=== PATIENT | female | born 1960 | race Caucasian/White ===

== ENCOUNTER 2018-05-23 14:46 | Inpatient (IN) | payer MEDICARE, MEDICAID, SELFPAY ==
[2018-05-23] VITALS (26 sets, daily range): BP systolic 112–140; BP diastolic 55–93; PULSE 76–101; RESP 12–32; TEMP 36.9–39.2; O2SAT 74–94; BMI 50.4; BMI 49.7
--- NOTE | 2018-05-23 15:05 | EKG12_ITS ---
Test Reason : SOB Blood Pressure : / mmHG Vent. Rate : 087 BPM Atrial Rate : 087 BPM P-R Int : 148 ms QRS Dur : 084 ms QT Int : 380 ms P-R-T Axes : 050 -02 071 degrees QTc Int : 457 ms Normal sinus rhythm Nonspecific T wave abnormality Abnormal ECG Confirmed by SUSANA BRENNER, WHIT ([id number]), dictionary editor CAROLINE CAMILO ([id number]) on 05/29/2018 11:18:05 AM Referred By: Alejandro Bernard Confirmed By:WHIT MEZA MD
[2018-05-23] MEDS: Ipratropium/Albuterol Sulfate 3 ML AMPUL.NEB INHALATION ×3 (15:10→22:49)
--- NOTE | 2018-05-23 15:13 | ED.DCSUM_ITS ---
- ER Visit Summary Date of Service: 05/23/18 Chief Complaint: Weakness, fall History of Present Illness: The patient is a 57 F reports being sick for the past week. She states she has been taking [place] to help control fever. She does report dry cough and does feel as if she is wheezing and has fine craft artist ckling when she breathes. She does report some mild vomiting. EMS was called for weakness and frequent falls. Per nursing report EMS states they had been called to the house multiple times. Physical Examination: Blood pressure is 113/57, temperature 102.5, heart rate 94, respiratory rate 25, pulse ox 79% on room air. At time of my examination she is 88% on a 50% Ventimask. Patient is lying in bed. She appears ill but not toxic. She is speaking full sentences. Head neck examination is significant for dry mucous membranes. Heart is regular rate and rhythm. Lungs sounds with expiratory wheezes and rales throughout. Abdomen is soft with no focal tenderness. Hypoactive bowel sounds noted. Test Results: EKG is sinus 87 with lateral T wave flattening. Portable chest x- ray shows CHF superimposed on atelectasis and/or infiltrate in the right midlung. CBC was normal overall white count was 79% neutrophils. Chemistry studies significant for bicarb of 35 and a glucose of 313. LFTs are normal. Coags normal. Urinalysis shows no white cells with 50 ketones. Lactate is 2.0. Emergency Department Course and Treatment: Patient received Tylenol for fever along with aerosols. Upon completion of x-ray Rocephin and Zithromax are ordered. On repeat evaluation sat is 91-93% on a 50% Ventimask. Patient is going to pull the mask off and needs to be redirected. He still does have expiratory wheezes but does have improved air movement. She be given a dose of Solu-Medrol and an additional albuterol treatment at this time. Of note the patient's boyfriend with whom she lives is positive for influenza. Patient reports being ill for 1 week and I doubt Tamiflu will be beneficial at this point. Treatment Plan: [] Disposition: Admit Impression: 1. Sepsis 2. Pneumonia 3. CHF 4. Influenza 5. Respiratory failure This note was generated with CINEPASSation software. It may contain incorrect words, spelling, and punctuation that were not noted in review of the chart prior to signing ED Disposition - Plan for ED Patient: Referrals: Richard Elizabeth MD [Primary Care Provider] -
--- NOTE | 2018-05-23 15:15 | RAD_ITS ---
STUDY: X-RAY CHEST REASON FOR EXAM: Female, 57 years old. Weakness. Cough. TECHNIQUE: Single AP portable view of the chest. COMPARISON: Comparison is made with prior study January 05, 2015. FINDINGS: EKG electrodes are seen. There is evidence of bilateral airspace disease worse in the right lung. This is suggestive of a CHF with possible superimposed atelectasis and/or infiltrate in the right midlung. There is no demonstrated pleural abnormality. There is moderate cardiac enlargement. Normal mediastinum and lyric. Normal visualized pulmonary arteries. There is atherosclerotic tortuosity of the aortic arch and descending thoracic aorta. Normal visualized thoracic spine. Normal visualized ribs, clavicles, and shoulders. There is no demonstrated abnormality of the visualized soft tissue structures of the upper abdomen. RAD/Chest 1 View (Portable) IMPRESSION: Findings suggestive CHF with superimposed atelectasis and/or infiltrate in the right midlung. Electronically Signed: Royer Rowe MD at 15:56 EST , Service support ,
[2018-05-23] MEDS: Albuterol 2.5 MG/3 ML VIAL.NEB. INHALATION ×3 (15:22→16:17)
[2018-05-23] MEDS: Acetaminophen 500 MG Tablet 1000 MG PO (15:28)
[2018-05-23] MEDS: 0.9% Normal Saline 1,000 ML 150 ML IV ×2 (15:32→18:16)
[2018-05-23 15:42] LABS: Mucous, Urine 0 SEEN /hpf (<or=2+); Red Blood Cells-Urine 0 SEEN /hpf (0-5); White Blood Cells 0 SEEN /hpf (0-5)
[2018-05-23 15:46] LABS: ALB/GLOB Ratio 0.7 RATIO (0.9-2.4); AST(SGOT) 30 U/L (15-37); Alanine Aminotransfer ALT/SGPT 22 U/L (13-56); Albumin, Serum 2.5 g/dL (3.2-5.0); Alkaline Phosphatase 84 U/L (45-117); Anion Gap 7 (5-15); BUN 11 mg/dL (7-18); BUN/Creat Ratio 10.3 RATIO (10-20); Calcium,Total 7.2 mg/dL (8.5-10.1); Chloride 95 mmol/L (98-107); Creatinine, Serum 1.07 mg/dL (0.55-1.02); EST Glomerular Filtration Rate 56 mL/min (>60); Est Glom Filt Rate - Afr Amer 68 mL/min (>60); Estimated Creatinine Clearance 56.41 ml/min; Globulin 3.8 g/dL (2.2-4.2); Glucose 313 mg/dL (74-106); Potassium 3.5 mmol/L (3.5-5.1); Protein, Total 6.3 g/dL (6.4-8.2); Sodium Level 137 mmol/L (136-145)
[2018-05-23 15:51] LABS: Color, Urine Yellow (Yellow); Glucose, Dipstick 1000 mg/dl (Normal); Ketone-Dipstick 50 mg/dl (Negative); Leukocyte Esterase-Dipstick Negative /ul (Negative); Nitrite-Dipstick Negative (Negative); Occult Blood-Urine 50 /ul (Negative); Protein-Dipstick 100 mg/dl (Negative); Urine Bilirubin Dipstick Negative (Negative); Urine Clarity Cloudy (Clear); Urine Urobilinogen Normal (Normal)
[2018-05-23 16:02] LABS: Prothrombin Time (Protime)PT. 12.9 SECONDS (11.7-14.9)
[2018-05-23 16:03] LABS: Partial Thromboplast Time 34.9 Seconds (24.1-36.2)
[2018-05-23 16:05] LABS: Squamous Epithelial Cells - UA 0-5 SEEN /hpf (5-10)
[2018-05-23 16:06] LABS: Amorphous Sediment 2+; Bacteria 4+ /hpf (None Seen); Coarse Granular Cast 0-5 SEEN /lpf (0-5 /lpf); Fine Granular Cast- Urine 5-10 SEEN /lpf (0-5)
[2018-05-23 16:10] LABS: Absolute Lymphocyte Count 0.49 X10^3/ul (0.83-4.51); Basophil# 0.01 X10^3/uL; Basophil% 0.2 % (0-1); Differential Indicated SCAN CRITERIA MET; Hematocrit 41.5 % (37-47); Hemoglobin 13.2 g/dl (12.0-15.0); Lymphocyte # 0.49 X10^3/ul (4.0); Lymphocyte % 9.7 % (19-41); Mean Corp Hgb Conc 31.8 g/gl (32-36); Mean Corpuscular Hgb 26.2 pg (27.0-32.0); Mean Corpuscular Volume 82.5 fL (81-99); Monocyte# 0.54 X10^3/uL; Monocyte% 10.7 % (0-10); Neutrophil # 4.01 X10^3/uL (2.7-7.7); Neutrophil % 79.2 % (47-70); POSITIVE COUNT NO; POSITIVE DIFFERENTIAL YES; POSITIVE MORPHOLOGY NO; Platelet Count 165 K/mm3 (150-450); RBC Distribution Width CV 13.7 % (11.6-14.6); RBC Distribution Width SD 40.4 fl (35.1-43.9); Red Blood Count 5.03 M/mm3 (4.2-5.4); White Blood Count 5.1 K/mm3 (4.4-11.0)
[2018-05-23] MEDS: Ceftriaxone 1 GM/50 ML BAG IV (16:22)
--- NOTE | 2018-05-23 16:34 | NURSING ---
PCU ACUTE RESP FAILURE, COPD?, PNEUMONIA ANISHA
[2018-05-23 16:43] LABS: Differential Comment SCANNED
[2018-05-23 16:57] LABS: BNP,B-Type NATRIURETIC PEPTIDE 24.7 pg/mL (0-100)
--- NOTE | 2018-05-23 16:58 | NURSING ---
ALEXA MONTOYA UPDATED PT PUT ON BIPAP AND CORE TEMP QUYEN IN
--- NOTE | 2018-05-23 17:00 | PCM.HP.STD ---
<Martín Garcia - Last Filed: 05/23/18 17:00> Problem List (1) Chest pain Status: Acute (2) CHF (congestive heart failure) Status: Acute (3) Pulmonary HTN Status: Acute (4) Acute respiratory failure with hypoxia Status: Acute (5) PNA (pneumonia) Status: Acute (6) Anxiety Status: Chronic (7) Diabetes Status: Chronic (8) Histrionic personality disorder Status: Chronic (9) PTSD (post-traumatic stress disorder) Status: Chronic (10) Morbid obesity Status: Chronic History of Present Illness Date of Admission: 05/23/18 Chief Complaint: SOB The patient is a 57 year old F with pmhx pulmonary htn, morbid obesity, ptsd, histrionic personality, anxiety, T2 IDDM who presents to the ER with c/o SOB. She has felt ill for the past week with increasing nonproductive cough SOB, worse with exertion, fatigue, falling, fevers and chills at home. Boyfriend is currently sick with influenza A. She is hypoxic in the ER and currently requiring Bipap to maintain good sats, however ongoing conversational dyspnea at this time. She also currently complains of chest pain midsternal radiating to back and neck. CXR appears c/w CHF and pneumonia. She received rocephin and azithro via IV in the ER. Last Echo 2013 EF 55%, PASP 44 mmHg. Heart Cath 2014 normal coronaries. She denies smoking hx, denies hx COPD. [] Past Medical History Past Medical History (Chronic Problems): Chronic Problems Morbid obesity (Chronic) Histrionic personality disorder (Chronic) PTSD (post-traumatic stress disorder) (Chronic) Anxiety (Chronic) Diabetes (Chronic) Allergies No Known Allergies Allergy (Verified 05/23/18 14:58) Home Medications: Ambulatory Orders Medication Instructions Recorded Hydroxyzine Pamoate [Vistaril] 50 mg PO TID 01/13/14 Zolpidem Tartrate [Ambien] 10 mg PO QHS 01/13/14 Atorvastatin Calcium [Lipitor] 40 mg PO QHS 05/23/18 Fluticasone 0.05% [Flonase Nasal 2 sprays NASAL DAILY 05/23/18 Walker] Insulin Human 70/30 [Novolog Mix 35 unit SC BID 05/23/18 70-30 Flexpen Syrn] Linagliptin [Tradjenta] 5 mg PO DAILY 05/23/18 Lorazepam [Ativan] 1 mg PO DAILY 05/23/18 Meloxicam 7.5 mg PO DAILY 05/23/18 Paliperidone [Paliperidone ER] 6 mg PO BID 05/23/18 Ranitidine HCl 150 mg PO DAILY 05/23/18 Surgical History: cholecystectomy, - - wrist surger (R) Psychiatric History: Anxiety, Depression, Post traumatic stress, - - histrionic personality disorder [employer]CH[employer] STRIPPER History: No pertinent [employer] STRIPPER history Lives: Spouse/ Significant Other Smoking Status: Never smoker Tobacco Use: Non-smoker Alcohol: None Drugs: None - *Family History Paternal History Items: No pertinent history Maternal History Items: Cancer - lung cancer Review of Systems Constitutional: Reports: Chills, Fever, Malaise, Fatigue. Denies: Weight Change HEENT: Denies: Head Aches, Sinus Congestion, Sinus Drainage Cardiovascular: Reports: Chest Pain, Edema. Denies: Palpitations Respiratory: Reports: Cough, Shortness of Breath, Shortness of breath at rest, Shortness of breath upon exertion. Denies: Sputum production Gastrointestinal: Denies: Abdominal Pain, Nausea, Vomiting Genitourinary: Denies: Dysuria Musculoskeletal: Denies: Joint Pain, Joint Tenderness Skin: Denies: Rash, Wounds Neurological: Denies: Numbness, Tingling, Focal weakness Psychiatric: Denies: Anxiety, Depression, Homicidal Ideations, Suicidal Ideations Hematologic/ Lymphatic: Denies: Easy Bruising, Easy Bleeding VTE Information - Inpt Only VTE Present on Admission: No VTE Mechan Device Prophylaxis: None VTE Pharm Prophylaxis ordered?: Yes Patient Problems: Active and Suspected Problems Chest pain (Acute) CHF (congestive heart failure) (Acute) Pulmonary HTN (Acute) Acute respiratory failure with hypoxia (Acute) PNA (pneumonia) (Acute) - Physical Exam General: Alert, Oriented x3, Cooperative HEENT: Atraumatic, PERRLA, EOMI, Normocephalic Neck: Supple, No JVD, Negative Carotid Bruits Lungs: Diminished, Rhonchi Cardiovascular: Regular rate, No murmurs Abdomen: Bowel Sounds Present, Soft, Non Tender, Obese Extremities: Capillary Refill Less than 3 Seconds, Edema - BL LE non pitting Skin: No rashes, No breakdown Musculoskeletal: No Tenderness to Palpation of Joints or Extremities Neurological: Cranial nerves II-XII grossly intact Psych/Mental Status: Normal Affect, Appropriate Vital Signs Temp Pulse Resp BP Pulse Ox 101.4 F H 89 24 H 129/73 H 90 05/23/18 16:59 05/23/18 16:59 05/23/18 16:59 05/23/18 16:59 05/23/18 16:59 Oxygen Flow Rate (L/min) 12 Oxygen Delivery Method Bi-pap Weight: 321 lb 13.998 oz Body Mass Index (BMI) 50.4 Finger Stick Blood Glucose 283 Laboratory Tests Past 24 Hrs 05/23/18 05/23/18 05/23/18 15:10 15:10 15:10 WBC 5.1 RBC 5.03 Hgb 13.2 Hct 41.5 MCV 82.5 MCH 26.2 L MCHC 31.8 L RDW 13.7 RDW Differential 40.4 Plt Count 165 MPV 11.0 Immature Gran % (Auto) 0.200 Neut % (Auto) 79.2 H Lymph % (Auto) 9.7 L [place] % (Auto) 10.7 H Eos % (Auto) 0.0 Baso % (Auto) 0.2 Absolute Neuts (auto) 4.0 Absolute Lymphs (auto) 0.49 L Total Counted Not Reportable Differential Comment SCANNED PT 12.9 INR 1.0 APTT 34.9 Sodium 137 Potassium 3.5 Chloride 95 L Carbon Dioxide 35.0 H Anion Gap 7 BUN 11 Creatinine 1.07 H Estim Creat Clear Calc 56.41 Est GFR (MDRD) Af Amer 68 Est GFR (MDRD) Non-Af 56 L BUN/Creatinine Ratio 10.3 Glucose 313 H Lactic Acid Calcium 7.2 L Total Bilirubin 0.20 AST 30 ALT 22 Alkaline Phosphatase 84 B-Natriuretic Peptide Total Protein 6.3 L Albumin 2.5 L Globulin 3.8 Albumin/Globulin Ratio 0.7 L Urine Color Urine Clarity Urine pH Ur Specific [place] Urine Protein Urine Glucose (UA) Urine Ketones Urine Occult Blood Urine Nitrite Urine Bilirubin Urine Urobilinogen Ur Leukocyte Esterase Urine RBC Urine WBC Ur Squamous Epith Cells Amorphous Sediment Urine Bacteria Fine Granular Casts Coarse Granular Casts Urine Mucus 05/23/18 05/23/18 05/23/18 15:10 15:10 15:35 WBC RBC Hgb Hct MCV MCH MCHC RDW RDW Differential Plt Count MPV Immature Gran % (Auto) Neut % (Auto) Lymph % (Auto) [place] % (Auto) Eos % (Auto) Baso % (Auto) Absolute Neuts (auto) Absolute Lymphs (auto) Total Counted Differential Comment PT INR APTT Sodium Potassium Chloride Carbon Dioxide Anion Gap BUN Creatinine Estim Creat Clear Calc Est GFR (MDRD) Af Amer Est GFR (MDRD) Non-Af BUN/Creatinine Ratio Glucose Lactic Acid 2.0 Calcium Total Bilirubin AST ALT Alkaline Phosphatase B-Natriuretic Peptide 24.7 Total Protein Albumin Globulin Albumin/Globulin Ratio Urine Color Yellow Urine Clarity Cloudy Urine pH 5.0 Ur Specific [place] 1.020 Urine Protein 100 H Urine Glucose (UA) 1000 H Urine Ketones 50 H Urine Occult Blood 50 H Urine Nitrite Negative Urine Bilirubin Negative Urine Urobilinogen Normal Ur Leukocyte Esterase Negative Urine RBC 0 SEEN Urine WBC 0 SEEN Ur Squamous Epith Cells 0-5 SEEN Amorphous Sediment 2+ Urine Bacteria 4+ Fine Granular Casts 5-10 SEEN Coarse Granular Casts 0-5 SEEN Urine Mucus 0 SEEN Assessment/Plan All Active Problems Chest pain (Acute) CHF (congestive heart failure) (Acute) Pulmonary HTN (Acute) Acute respiratory failure with hypoxia (Acute) PNA (pneumonia) (Acute) S/P laparoscopic cholecystectomy (Acute) Gall bladder disease (Acute) 1. Acute hypoxic respiratory failure with hypercapnia, acute sepsis, 2/2 acute viral syndrome presumed influenza A, CAP and underlying CHF/pulmonary HTN - Maintain on bipap currentl 5/10 with 91% sat. Start tamiflu empirically. Continue rocephin and azithro - RML infiltrate on CXR. Also CXR showing CHF - IV lasix 40 IV BID. Hx pulm htn. Repeat Echo last 2013 ef 55% PASP 44. Continue supportive care with mucinex, aerosols, pep, IS. Check daily weights, monitor I/O. Resp panel pending. BNP pending. No white count however she has fever, tachypnea, pulse >90, LA 2.0 2. Chest pain - cath 2013 no CAD. Check trop. EKG T wave flattening. Maintain on tele. Repeat AM EKG, cycle enzymes. 3. T2DM with morbid obesity - poorly controlled. Add lantus and SSI. Dietary consult. Carb controlled/ Glenn controlled diet. 4. Suspect ERICK/OHS - needs o/p sleep study 5. Anx/Dep/PTSD/Histrionic - continue home meds. DVT ppx: Lovenox DC planning: PTOT. Falling at home recently. This patient was seen by Martín Garcia PA-C under the supervision of Doctor Marco Antonio. <Alejandro Bernard - Last Filed: 05/23/18 17:54> Problem List (1) Chest pain Status: Acute (2) CHF (congestive heart failure) Status: Acute (3) Pulmonary HTN Status: Acute (4) Acute respiratory failure with hypoxia Status: Acute (5) PNA (pneumonia) Status: Acute (6) Morbid obesity Status: Chronic (7) S/P laparoscopic cholecystectomy Status: Acute (8) Gall bladder disease Status: Acute (9) Histrionic personality disorder Status: Chronic (10) PTSD (post-traumatic stress disorder) Status: Chronic (11) Anxiety Status: Chronic (12) Diabetes Status: Chronic History of Present Illness Seen and examined. 57-year-old female with no history of smoking, COPD or chronic heart problems came to ER with shortness of breath, cough, tachypnea consistent with acute hypoxic respiratory failure. In ED, she was found febrile 101.7 Fahrenheit. Pulse ox was 79% on room air and was put on 50% Ventimask. Initially although she was refusing for BiPAP but later on she agreed. [] Past Medical History Allergies No Known Allergies Allergy (Verified 05/23/18 14:58) - Physical Exam General: Alert, Oriented x3, Cooperative HEENT: Atraumatic, PERRLA, EOMI, Normocephalic Neck: Supple, No JVD, Negative Carotid Bruits Lungs: Diminished - Air entry severely diminished in all lung granados., Rhonchi, Short of Breath, Tachypneic, Using Accessory Muscles, Wheezes Cardiovascular: Regular rate, Regular Rhythm, Normal S1, Normal S2, No murmurs Abdomen: Bowel Sounds Present, Soft, Non Tender, Non-Distended Extremities: Capillary Refill Less than 3 Seconds, Edema Skin: No rashes, No breakdown Musculoskeletal: No Tenderness to Palpation of Joints or Extremities, Arthritic Changes Lymphatic: No Cervical, Supraclavicular, or Inguinal Adenopathy Neurological: Cranial nerves II-XII grossly intact Psych/Mental Status: Normal Affect, Appropriate Vital Signs Temp Pulse Resp BP Pulse Ox 99.4 F H 76 25 H 112/55 L 94 05/23/18 17:33 05/23/18 17:33 05/23/18 17:33 05/23/18 17:33 05/23/18 17:33 Oxygen Flow Rate (L/min) 12 Oxygen Delivery Method Bi-pap Weight: 307 lb 15.772 oz Body Mass Index (BMI) 49.7 Finger Stick Blood Glucose 283 Laboratory Tests Past 24 Hrs 05/23/18 05/23/18 05/23/18 15:10 15:10 15:10 WBC 5.1 RBC 5.03 Hgb 13.2 Hct 41.5 MCV 82.5 MCH 26.2 L MCHC 31.8 L RDW 13.7 RDW Differential 40.4 Plt Count 165 MPV 11.0 Immature Gran % (Auto) 0.200 Neut % (Auto) 79.2 H Lymph % (Auto) 9.7 L [place] % (Auto) 10.7 H Eos % (Auto) 0.0 Baso % (Auto) 0.2 Absolute Neuts (auto) 4.0 Absolute Lymphs (auto) 0.49 L Total Counted Not Reportable Differential Comment SCANNED PT 12.9 INR 1.0 APTT 34.9 Sodium 137 Potassium 3.5 Chloride 95 L Carbon Dioxide 35.0 H Anion Gap 7 BUN 11 Creatinine 1.07 H Estim Creat Clear Calc 56.41 Est GFR (MDRD) Af Amer 68 Est GFR (MDRD) Non-Af 56 L BUN/Creatinine Ratio 10.3 Glucose 313 H Lactic Acid Calcium 7.2 L Total Bilirubin 0.20 AST 30 ALT 22 Alkaline Phosphatase 84 B-Natriuretic Peptide Total Protein 6.3 L Albumin 2.5 L Globulin 3.8 Albumin/Globulin Ratio 0.7 L Urine Color Urine Clarity Urine pH Ur Specific [place] Urine Protein Urine Glucose (UA) Urine Ketones Urine Occult Blood Urine Nitrite Urine Bilirubin Urine Urobilinogen Ur Leukocyte Esterase Urine RBC Urine WBC Ur Squamous Epith Cells Amorphous Sediment Urine Bacteria Fine Granular Casts Coarse Granular Casts Urine Mucus 05/23/18 05/23/18 05/23/18 15:10 15:10 15:35 WBC RBC Hgb Hct MCV MCH MCHC RDW RDW Differential Plt Count MPV Immature Gran % (Auto) Neut % (Auto) Lymph % (Auto) [place] % (Auto) Eos % (Auto) Baso % (Auto) Absolute Neuts (auto) Absolute Lymphs (auto) Total Counted Differential Comment PT INR APTT Sodium Potassium Chloride Carbon Dioxide Anion Gap BUN Creatinine Estim Creat Clear Calc Est GFR (MDRD) Af Amer Est GFR (MDRD) Non-Af BUN/Creatinine Ratio Glucose Lactic Acid 2.0 Calcium Total Bilirubin AST ALT Alkaline Phosphatase B-Natriuretic Peptide 24.7 Total Protein Albumin Globulin Albumin/Globulin Ratio Urine Color Yellow Urine Clarity Cloudy Urine pH 5.0 Ur Specific [place] 1.020 Urine Protein 100 H Urine Glucose (UA) 1000 H Urine Ketones 50 H Urine Occult Blood 50 H Urine Nitrite Negative Urine Bilirubin Negative Urine Urobilinogen Normal Ur Leukocyte Esterase Negative Urine RBC 0 SEEN Urine WBC 0 SEEN Ur Squamous Epith Cells 0-5 SEEN Amorphous Sediment 2+ Urine Bacteria 4+ Fine Granular Casts 5-10 SEEN Coarse Granular Casts 0-5 SEEN Urine Mucus 0 SEEN Assessment/Plan This patient was seen in conjunction with Martín SELBY. I have independently interviewed and examined the patient and reviewed pertinent history, examination findings, laboratory and plan of management. I have reviewed the note and agree with the documented findings with the few additional points. In brief, patient is admitted for acute hypoxic and hypercarbic respiratory failure. Patient is put on BiPAP. ABG ordered. Blood cultures x2, urine culture, respiratory panel ordered. Patient also had chest pain on and off, on exertion and relieved with rest, typical angina but had negative cardiac cath in 2014. Serial troponin enzymes as mentioned above. ECHO ordered I have discussed my assessment with Martín SELBY and orders have been reviewed. Code Visit Inpatient E&M: 20566 Init Hosp L3
[2018-05-23 17:45] LABS: Base Excess 9 mmol/L (-2 to +2); Blood Gas Specimen Type ART; EPAP 6; FI02 50; IPAP 12; PO2 101 mmHG (75-100); RR 12; SO2 98 % (95-99); Time Given 1545; Total Carbon Dioxide 36 mmol/L; pCO2 52.6 mmHg (35-45); pH 7.42 (7.35-7.45)
[2018-05-23 19:21] LABS: Reflex Lactate? Y
[2018-05-23 20:02] LABS: Lactic Acid 1.1 mmol/L (0.4-2.0)
[2018-05-23] MEDS: ALPRAZolam 0.5 MG Tablet PO (20:36)
[2018-05-23] MEDS: Morphine 2 MG/ML Syringe IV (20:36)
[2018-05-23] MEDS: Furosemide 40 MG/4 ML Vial IV (20:36)
[2018-05-23] MEDS: guaiFENesin 1,200 MG Tablet 1200 MG PO (22:28)
[2018-05-23] MEDS: Oseltamivir Phosphate 30 MG Capsule PO (22:28)
--- NOTE | 2018-05-23 23:24 | CPS ---
Encouraged pt. to go on her BiPAP after breathing treatment. Pt. attempted to wear mask, but couldn't tolerate BiPAP after 15 mins. Pt. placed back on HFNC @ 11 with SpO2 at 90%.
[2018-05-24] VITALS (42 sets, daily range): BP systolic 73–159; BP diastolic 40–135; PULSE 67–95; RESP 12–32; TEMP 36.5–38.8; O2SAT 89–96
[2018-05-24] MEDS: LORazepam 1 MG Tablet PO ×2 (00:05→09:41)
[2018-05-24] MEDS: Insulin Human 75/25 Kwickpen 35 UNIT SC ×2 (00:06→09:21)
[2018-05-24] MEDS: Zolpidem Tartrate 5 MG Tablet PO (00:19)
[2018-05-24] MEDS: Morphine 2 MG/ML Syringe IV ×2 (00:20→09:41)
--- NOTE | 2018-05-24 03:10 | CPS ---
00:45 RN put pt. on BiPAP. RN called to make aware.
--- NOTE | 2018-05-24 05:55 | ECHOCS_ITS ---
Reason For Study: CHF Procedure This was a 2D Doppler, Color Flow transthoracic echocardiogram. Exam performed portable in ICU/CCU. Left Ventricle Normal LV size. The estimated ejection fraction is 55 %. Stage 1 diastolic dysfunction. No regional wall motion abnormalities noted. Right Ventricle Normal RV size. Normal systolic function. Atria Normal left atrium. Normal right atrium. Mitral Valve Normal mitral valve. Tricuspid Valve Normal tricuspid valve. Aortic Valve The aortic valve is not well visualized. Pulmonic Valve The pulmonic valve is not well visualized. Great Vessels Normal aortic root. The pulmonary artery is normal size. Inferior vena cava collapse with sniff. Pericardium/Pleural No pericardial effusion. Medication Diluted definity 3ml given slow IV push to enhance endocardial definition. MMode/2D Measurements & Calculations LVIDd: 4.9 cm IVSd: 1.1 cm Ao root diam: 3.2 cm LVIDs: 3.7 cm LVPWd: 0.96 cm RVDd: 3.5 cm FS: 24.7 % LAV(MOD-bp): 52.7 ml LA A4 area: 21.8 cm2 LA dimension(2D): 3.3 cm LAV(MOD-bp) Indexed: 22.0 ml/m2 LAV(MOD-sp2): 36.7 ml LAV(MOD-sp4): 63.5 ml RA A4 area: 16.8 cm2 Doppler Measurements & Calculations MV E max pantera: 56.6 cm/sec Lat Peak E' Pantera: 9.4 cm/sec Med Peak E' Pantera: 6.5 cm/sec MV A max pantera: 67.4 cm/sec E/E' lat: 6.0 E/E' med: 8.7 MV E/A: 0.84 Ao V2 max: 144.4 cm/sec LV V1 max: 122.4 cm/sec PA V2 max: 76.9 cm/sec Ao max P.3 mmHg LV V1 max P.0 mmHg TR max pantera: 232.6 cm/sec TR max P.6 mmHg Interpretation Summary Normal LV size. The estimated ejection fraction is 55 %. Stage 1 diastolic dysfunction. Contrast injection was performed. Ordering Physician: Martín Garcia Referring Physician: Alejandro Bernard Performed By: Ginny Hammonds RDCS
--- NOTE | 2018-05-24 05:55 | EKG12_ITS ---
Test Reason : AM Blood Pressure : / mmHG Vent. Rate : 078 BPM Atrial Rate : 078 BPM P-R Int : 144 ms QRS Dur : 082 ms QT Int : 418 ms P-R-T Axes : 047 005 058 degrees QTc Int : 476 ms Normal sinus rhythm Low voltage QRS Nonspecific T wave abnormality Abnormal ECG When compared with ECG of 23-MAY-2018 15:15, MANUAL COMPARISON REQUIRED, DATA IS UNCONFIRMED Confirmed by SUSANA BRENNER, WHIT ([id number]), editor news CAROLINE CAMILO ([id number]) on 05/25/2018 9:51:49 AM Referred By: Alejandro Bernard Confirmed By:WHIT MEZA MD
[2018-05-24 06:18] LABS: Anion Gap 9 (5-15); BUN 14 mg/dL (7-18); BUN/Creat Ratio 10.9 RATIO (10-20); Calcium,Total 7.6 mg/dL (8.5-10.1); Chloride 94 mmol/L (98-107); Creatinine, Serum 1.28 mg/dL (0.55-1.02); EST Glomerular Filtration Rate 46 mL/min (>60); Est Glom Filt Rate - Afr Amer 55 mL/min (>60); Glucose 374 mg/dL (74-106); Potassium 4.1 mmol/L (3.5-5.1); Sodium Level 137 mmol/L (136-145)
[2018-05-24] MEDS: Enoxaparin 40 MG/0.4 ML Syringe SC (06:36)
[2018-05-24] MEDS: hydrOXYzine PAM 25 MG Capsule 50 MG PO (06:36)
[2018-05-24 06:40] LABS: Absolute Lymphocyte Count 1.06 X10^3/ul (0.83-4.51); Absolute Neutrophil Count 4.3 X10^3/uL (2.0-7.7); Basophil# 0.02 X10^3/uL; Basophil% 0.3 % (0-1); Hematocrit 43.1 % (37-47); Hemoglobin 13.5 g/dl (12.0-15.0); Lymphocyte # 1.06 X10^3/ul (4.0); Mean Corp Hgb Conc 31.3 g/gl (32-36); Mean Corpuscular Hgb 26.4 pg (27.0-32.0); Mean Corpuscular Volume 84.2 fL (81-99); Mean Platelet Vol. 10.2 fl (6.2-12.0); Monocyte# 0.53 X10^3/uL; Neutrophil # 4.27 X10^3/uL (2.7-7.7); Neutrophil % 72.5 % (47-70); Platelet Count 138 K/mm3 (150-450); RBC Distribution Width CV 13.9 % (11.6-14.6); RBC Distribution Width SD 43.4 fl (35.1-43.9); Red Blood Count 5.12 M/mm3 (4.2-5.4); White Blood Count 5.9 K/mm3 (4.4-11.0)
[2018-05-24 06:46] LABS: POSITIVE COUNT NO; POSITIVE DIFFERENTIAL NO; POSITIVE MORPHOLOGY NO
[2018-05-24] MEDS: Ipratropium/Albuterol Sulfate 3 ML AMPUL.NEB INHALATION ×5 (06:57→23:10)
[2018-05-24 07:11] LABS: Bedside Glucose 373 mg/dL (70-110)
[2018-05-24 07:11] LABS: Bedside Glucose 461 mg/dL (70-110)
[2018-05-24 07:11] LABS: Bedside Glucose 478 mg/dL (70-110)
--- NOTE | 2018-05-24 07:58 | PN_ITS ---
Patient Problems: Active and Suspected Problems Chest pain (Acute) CHF (congestive heart failure) (Acute) Pulmonary HTN (Acute) Acute respiratory failure with hypoxia (Acute) PNA (pneumonia) (Acute) Subjective: The patient is a 57-year-old female with a past medical history of morbid obesity, histrionic personality disorder, posttraumatic stress disorder, anxiety and diabetes mellitus type 2 who presented to the emergency department at [facility] on 05/23/2018 complaining of chest pain and shortness of breath. Additionally complained of cough was nonproductive, fatigue, falls and fever/chills. She related that her boyfriend is currently sick with influenza A. Vital signs in the emergency room were temperature 102.5, pulse rate 94, respiratory rate 25 and she was 79% on room air and 91% on a Ventimask with 12 L/min oxygen flow. CBC was unremarkable. An ABG done on BiPAP 09/19 had pH of 7.42, PCO2 of 52.6 and a PO2 of 101. Serum bicarb was increased at 35. BUN was 11 with a creatinine of 1.07 and the lactic acid was 2.0. Random blood sugar was 313. Troponin at admission was 0.05 and has trended down to 0.023. UA was negative. Urine was negative for streptococcal and Legionella antigens. Chest x-ray showed bilateral infiltrates, right greater than left. BNP was normal. She was given azithromycin and ceftriaxone in the emergency department and this was continued at admission. She also was started on Tamiflu. She was admitted to a monitored bed on PCU with a diagnosis of acute combined respiratory failure secondary to presumed acute viral syndrome/pneumonia with recent exposure to her boyfriend who has influenza A. All events the past 24 hours been reviewed. Tmax was 102.5 at admission and she is currently 97.7 ?F. Heart rate and blood pressure are within normal limits. She is currently on BiPAP with an oxygen saturation of 93% with a 50% FiO2. All lab was personally reviewed. White blood cell count is 5.9 with 72% neutrophils. Platelets are mildly decreased at 138,000 and the hemoglobin is 13.5. Serum bicarb is stable at 34. Creatinine is increased to 1.28 from 1.07 at admission. She was started on Lasix 40 mg IV twice daily. Blood sugars remain high. she is having SOB. Denies CP, N/V/D. She is c/o Left knee pain that is chronic. - Physical Exam General: Alert, - - she is on BIPAP and is tachypneic askinag if she can eat lunch HEENT: Atraumatic, PERRLA, Normocephalic Oral: Dry Mucosa Neck: Supple, No Nuchal Rigidity, Trachea Midline Lungs: No wheeze, Rales - throughout the R lung and in the left base and left lateral., Short of Breath, Tachypneic, - - states she snores at night.....has never had a sleep study. Cardiovascular: Regular rate, Regular Rhythm, Normal S1, Normal S2, No murmurs, No rub noted, No Gallop, - - distant heart sounds due to body habitus. Telemetry shows NSR with occasional PVC Abdomen: Bowel Sounds Present, Soft, Non Tender, Obese Extremities: No clubbing, No cyanosis, No edema, No Calf Tenderness, Peripheral Pulses Normal, - - Left knee pain without any swelling and no redness.....chronic Skin: No rashes, No breakdown Musculoskeletal: No Muscle Wasting Neurological: Cranial nerves II-XII grossly intact, Neuro grossly intact Psych/Mental Status: - - unrealistic about how ill she is. I am telling her that she may need intubated and things are getting worse and she will be going to ICU and she is asking me about lunch Vital Signs Temp Pulse Resp BP Pulse Ox 97.7 F L 88 24 H 138/74 H 93 05/24/18 04:30 05/24/18 06:57 05/24/18 05:05 05/24/18 04:30 05/24/18 05:05 Oxygen Flow Rate (L/min) 11 Oxygen Delivery Method Bi-pap Weight: 308 lb 10.354 oz Body Mass Index (BMI) 49.7 Finger Stick Blood Glucose 283 Intake and Output for Last 24 Hours 05/22/18 05/23/18 05/24/18 23:59 23:59 23:59 Intake Total 460 / 460 Output Total 1500 / 1500 Balance -1040 / -1040 Microbiology Past 72 Hours 05/23/18 18:30 Legionella Antigen - Final Urine Catheter - Tovar 05/23/18 18:30 Streptococcus pneumoniae Antigen (M - Final Urine Catheter - Tovar Laboratory Tests Past 24 Hrs 05/23/18 05/23/1819 15:10 15:10 15:10 WBC 5.1 RBC 5.03 Hgb 13.2 Hct 41.5 MCV 82.5 MCH 26.2 L MCHC 31.8 L RDW 13.7 RDW Differential 40.4 Plt Count 165 MPV 11.0 Immature Gran % (Auto) 0.200 Neut % (Auto) 79.2 H Lymph % (Auto) 9.7 L Candler % (Auto) 10.7 H Eos % (Auto) 0.0 Baso % (Auto) 0.2 Absolute Neuts (auto) 4.0 Absolute Lymphs (auto) 0.49 L Total Counted Not Reportable Differential Comment SCANNED PT 12.9 INR 1.0 APTT 34.9 Specimen Type pH Bicarbonate Actual POC Total CO2 Base Excess O2 Saturation O2 % ABG pCO2 ABG pO2 Respiration Rate O2 Delivery Device EPAP IPAP Blood Gas Notified Whom Blood Gas Notified Time Sodium 137 Potassium 3.5 Chloride 95 L Carbon Dioxide 35.0 H Anion Gap 7 BUN 11 Creatinine 1.07 H Estim Creat Clear Calc 56.41 Est GFR (MDRD) Af Amer 68 Est GFR (MDRD) Non-Af 56 L BUN/Creatinine Ratio 10.3 Glucose 313 H Lactic Acid Calcium 7.2 L Total Bilirubin 0.20 AST 30 ALT 22 Alkaline Phosphatase 84 Troponin I B-Natriuretic Peptide Total Protein 6.3 L Albumin 2.5 L Globulin 3.8 Albumin/Globulin Ratio 0.7 L Urine Color Urine Clarity Urine pH Ur Specific Rowe Urine Protein Urine Glucose (UA) Urine Ketones Urine Occult Blood Urine Nitrite Urine Bilirubin Urine Urobilinogen Ur Leukocyte Esterase Urine RBC Urine WBC Ur Squamous Epith Cells Amorphous Sediment Urine Bacteria Fine Granular Casts Coarse Granular Casts Urine Mucus 05/23/18 05/23/18 05/23/18 15:10 15:10 15:35 WBC RBC Hgb Hct MCV MCH MCHC RDW RDW Differential Plt Count MPV Immature Gran % (Auto) Neut % (Auto) Lymph % (Auto) Candler % (Auto) Eos % (Auto) Baso % (Auto) Absolute Neuts (auto) Absolute Lymphs (auto) Total Counted Differential Comment PT INR APTT Specimen Type pH Bicarbonate Actual POC Total CO2 Base Excess O2 Saturation O2 % ABG pCO2 ABG pO2 Respiration Rate O2 Delivery Device EPAP IPAP Blood Gas Notified Whom Blood Gas Notified Time Sodium Potassium Chloride Carbon Dioxide Anion Gap BUN Creatinine Estim Creat Clear Calc Est GFR (MDRD) Af Amer Est GFR (MDRD) Non-Af BUN/Creatinine Ratio Glucose Lactic Acid 2.0 Calcium Total Bilirubin AST ALT Alkaline Phosphatase Troponin I B-Natriuretic Peptide 24.7 Total Protein Albumin Globulin Albumin/Globulin Ratio Urine Color Yellow Urine Clarity Cloudy Urine pH 5.0 Ur Specific Rowe 1.020 Urine Protein 100 H Urine Glucose (UA) 1000 H Urine Ketones 50 H Urine Occult Blood 50 H Urine Nitrite Negative Urine Bilirubin Negative Urine Urobilinogen Normal Ur Leukocyte Esterase Negative Urine RBC 0 SEEN Urine WBC 0 SEEN Ur Squamous Epith Cells 0-5 SEEN Amorphous Sediment 2+ Urine Bacteria 4+ Fine Granular Casts 5-10 SEEN Coarse Granular Casts 0-5 SEEN Urine Mucus 0 SEEN 05/23/18 05/23/18 05/23/18 17:41 17:45 19:20 WBC RBC Hgb Hct MCV MCH MCHC RDW RDW Differential Plt Count MPV Immature Gran % (Auto) Neut % (Auto) Lymph % (Auto) Candler % (Auto) Eos % (Auto) Baso % (Auto) Absolute Neuts (auto) Absolute Lymphs (auto) Total Counted Differential Comment PT INR APTT Specimen Type ART pH 7.42 Bicarbonate Actual 34.0 H POC Total CO2 36 Base Excess 9 H O2 Saturation 98 O2 % 50 ABG pCO2 52.6 H ABG pO2 101 H Respiration Rate 12 O2 Delivery Device Bi / C PAP EPAP 6 IPAP 12 Blood Gas Notified Whom HOSP Blood Gas Notified Time 1545 Sodium Potassium Chloride Carbon Dioxide Anion Gap BUN Creatinine Estim Creat Clear Calc Est GFR (MDRD) Af Amer Est GFR (MDRD) Non-Af BUN/Creatinine Ratio Glucose Lactic Acid 1.1 Calcium Total Bilirubin AST ALT Alkaline Phosphatase Troponin I 0.050 H B-Natriuretic Peptide Total Protein Albumin Globulin Albumin/Globulin Ratio Urine Color Urine Clarity Urine pH Ur Specific Rowe Urine Protein Urine Glucose (UA) Urine Ketones Urine Occult Blood Urine Nitrite Urine Bilirubin Urine Urobilinogen Ur Leukocyte Esterase Urine RBC Urine WBC Ur Squamous Epith Cells Amorphous Sediment Urine Bacteria Fine Granular Casts Coarse Granular Casts Urine Mucus 05/24/18 05/24/18 05/24/18 00:10 02:32 05:25 WBC 5.9 RBC 5.12 Hgb 13.5 Hct 43.1 MCV 84.2 MCH 26.4 L MCHC 31.3 L RDW 13.9 RDW Differential 43.4 Plt Count 138 L MPV 10.2 Immature Gran % (Auto) 0.200 Neut % (Auto) 72.5 H Lymph % (Auto) 18.0 L Candler % (Auto) 9.0 Eos % (Auto) 0.0 Baso % (Auto) 0.3 Absolute Neuts (auto) 4.3 Absolute Lymphs (auto) 1.06 Total Counted Not Reportable Differential Comment PT INR APTT Specimen Type pH Bicarbonate Actual POC Total CO2 Base Excess O2 Saturation O2 % ABG pCO2 ABG pO2 Respiration Rate O2 Delivery Device EPAP IPAP Blood Gas Notified Whom Blood Gas Notified Time Sodium Potassium Chloride Carbon Dioxide Anion Gap BUN Creatinine Estim Creat Clear Calc Est GFR (MDRD) Af Amer Est GFR (MDRD) Non-Af BUN/Creatinine Ratio Glucose Lactic Acid Calcium Total Bilirubin AST ALT Alkaline Phosphatase Troponin I 0.034 0.036 B-Natriuretic Peptide Total Protein Albumin Globulin Albumin/Globulin Ratio Urine Color Urine Clarity Urine pH Ur Specific Rowe Urine Protein Urine Glucose (UA) Urine Ketones Urine Occult Blood Urine Nitrite Urine Bilirubin Urine Urobilinogen Ur Leukocyte Esterase Urine RBC Urine WBC Ur Squamous Epith Cells Amorphous Sediment Urine Bacteria Fine Granular Casts Coarse Granular Casts Urine Mucus 05/24/18 05/24/18 05:25 05:25 WBC RBC Hgb Hct MCV MCH MCHC RDW RDW Differential Plt Count MPV Immature Gran % (Auto) Neut % (Auto) Lymph % (Auto) Candler % (Auto) Eos % (Auto) Baso % (Auto) Absolute Neuts (auto) Absolute Lymphs (auto) Total Counted Differential Comment PT INR APTT Specimen Type pH Bicarbonate Actual POC Total CO2 Base Excess O2 Saturation O2 % ABG pCO2 ABG pO2 Respiration Rate O2 Delivery Device EPAP IPAP Blood Gas Notified Whom Blood Gas Notified Time Sodium 137 Potassium 4.1 Chloride 94 L Carbon Dioxide 34.0 H Anion Gap 9 BUN 14 Creatinine 1.28 H Estim Creat Clear Calc 45.40 Est GFR (MDRD) Af Amer 55 L Est GFR (MDRD) Non-Af 46 L BUN/Creatinine Ratio 10.9 Glucose 374 H Lactic Acid Calcium 7.6 L Total Bilirubin AST ALT Alkaline Phosphatase Troponin I 0.023 B-Natriuretic Peptide Total Protein Albumin Globulin Albumin/Globulin Ratio Urine Color Urine Clarity Urine pH Ur Specific Rowe Urine Protein Urine Glucose (UA) Urine Ketones Urine Occult Blood Urine Nitrite Urine Bilirubin Urine Urobilinogen Ur Leukocyte Esterase Urine RBC Urine WBC Ur Squamous Epith Cells Amorphous Sediment Urine Bacteria Fine Granular Casts Coarse Granular Casts Urine Mucus POC Glucose 05/24/18 05/23/18 05/23/18 06:31 22:43 22:41 POC Glucose 373 H 461 H* 478 H* Medical Necessity - Tobacco Use Smoking Status: Never smoker Tobacco Use: Non-smoker Assessment/Plan All Active Problems Chest pain (Acute) CHF (congestive heart failure) (Acute) Pulmonary HTN (Acute) Acute respiratory failure with hypoxia (Acute) PNA (pneumonia) (Acute) S/P laparoscopic cholecystectomy (Acute) Gall bladder disease (Acute) Impressions 1. Acute respiratory failure with hypoxia and hypercapnia secondary to multilobar pneumonia -with negative Legionella and streptococcal antigens in the urine and a negative respiratory panel. The urine is growing a gram-negative severo lactose stage builder however on the UA there were 0 WBCs. Blood cultures are pending. 2. Morbid obesity 3. Uncontrolled diabetes mellitus-hemoglobin A1c is 12.5. 4. Indeterminate troponin at admission-likely secondary to demand ischemia related to pneumonia and acute respiratory failure. 5. Pulmonary hypertension -estimated pulmonary artery systolic pressure on echocardiogram in 2013 was 44 and I suspect it is likely higher now 6. Sleep disordered breathing-suspect ERICK obesity hypoventilation syndrome 7. Anxiety/depression/PTSD/histrionic personality disorder complicate care management and prognosis Defer to the intensive care unit. Patient is now on a 70% FiO2 while and only maintaining 90% oxygen saturation. Respiratory pressure is been increased BiPAP Discontinue azithromycin and Rocephin and start vancomycin and Unasyn (for possible aspiration) Consult Dr. Corbin to participate in management Echocardiogram to evaluate pulmonary systolic pressure Recheck lab in the a.m. N.p.o. Continue SCDs and Enoxaparin for DVT prophylaxis Accu-Cheks every 6 hours with high dose sliding insulin scale DC 75/25 insulin start Lantus 20 units twice daily Tovar catheter for accurate intake and output CODE STATUS: Discussed code status at length with patient including the difference between FULL CODE, DNR CCA and DNR CC status. All questions were answered. An order for full code was entered into the computer. A total of 20 minutes face to face time was devoted to advanced care planning. Code Visit Inpatient E&M: [id number] [facility] Hosp L3
[2018-05-24 08:59] LABS: Hemoglobin A1c 12.5 % (4.2-6.3)
[2018-05-24] MEDS: Insulin Lispro 100 UNIT/ML INSULN.PEN SC ×4 (09:21→23:52)
[2018-05-24] MEDS: Ceftriaxone 1 GM/50 ML BAG IV (09:22)
[2018-05-24] MEDS: Acetaminophen 325 MG Tablet 650 MG PO (09:40)
[2018-05-24] MEDS: Oseltamivir Phosphate 30 MG Capsule PO (09:41)
[2018-05-24] MEDS: guaiFENesin 1,200 MG Tablet 1200 MG PO (09:41)
[2018-05-24] MEDS: 0.9% NaCl Peripheral Flush Adult/Peds IV (09:41)
[2018-05-24] MEDS: Meloxicam 7.5 MG Tablet PO (09:41)
[2018-05-24] MEDS: Famotidine 20 MG Tablet PO (09:41)
--- NOTE | 2018-05-24 10:30 | RAD_ITS ---
STUDY: X-RAY CHEST REASON FOR EXAM: Female, 57 years old. Shortness of breath. TECHNIQUE: PA and lateral views of the chest. COMPARISON: May 23, 2018. FINDINGS: Telemetry wires overlie the chest. No visualized endotracheal tube or nasogastric tube. There is a decreased inspiratory effort. There is interstitial alveolar changes throughout both lungs. These appear slightly increased at the left lung base when compared to prior study.. Small pleural effusions cannot be ruled out. The heart is mildly enlarged. Normal mediastinum and lyric. Again seen is central vascular prominence. Normal visualized aortic arch and descending thoracic aorta. There are diffuse degenerative changes of the visualized thoracic spine. Normal visualized ribs, clavicles, and shoulders. There is no demonstrated abnormality of the visualized soft tissue structures of the upper abdomen. RAD/Chest PA and Lateral IMPRESSION: Findings consistent with CHF. This appears worsening with areas of consolidation at the left lung base. Electronically Signed: Michael Braxton DO at 17:08 EST Tel [phone], Service support ,
--- NOTE | 2018-05-24 10:55 | CPS ---
This RT transported patient to XRAY on BiPAP 12/6 60%. Patient's SpO2 was 88-89% on those settings. This RT increased BiPAP to 14/8 70% due to SpO2. Patient's SpO2 increased to 90%. Dr. Michelle aware. Patient is getting transferred to ICU. Jasmeet ANDRADE
[2018-05-24 11:15] LABS: Bedside Glucose 359 mg/dL (70-110)
--- NOTE | 2018-05-24 12:04 | NURSING ---
Called report to Lois MONTOYA in ICU
--- NOTE | 2018-05-24 12:28 | PCM.CON.CC ---
Reason for Consult Date of Consultation: 05/24/18 Reason for Consultation: Acute hypoxemic and hypercarbic respiratory failure History of Present Illness: The patient is a morbidly obese 57-year-old female, with a history as outlined below, who presented to the emergency department on May 23 with generalized malaise, weakness, cough and shortness of breath. She reported that her boyfriend with whom she resides was recently positive for influenza. She denies a history of COPD or asthma. She reports that she is a lifelong non-smoker. She has never been evaluated for underlying obstructive sleep apnea. On presentation to the emergency department, the patient was noted to be febrile, tachypneic and hypoxemic. Laboratory evaluation revealed no evidence of a leukocytosis. Coagulation profile was within normal limits. Chemistry profile revealed elevated serum bicarbonate to 35 along with an elevated creatinine of 1.07. Lactate was within normal limits. Initial troponin was increased to 0.050. Urinalysis revealed presence of 4+ urine bacteria. Plain film chest x-ray was largely of suboptimal quality with poor penetration due to the patient's body habitus. There appeared to be evidence of an infiltrate in the right midlung. The patient was treated in the emergency department with antibiotics, aerosol treatments and steroids. She was subsequently placed on a Ventimask at 50%. The patient was then admitted to the progressive care unit for ongoing management. The patient initially received IV diuretics over concerns for a CHF exacerbation. However, the patient's respiratory status continued to worsen. Her creatinine also increased to 1.28 this morning. The patient's repeat plain film chest x-ray from this morning appears to show interval worsening. Despite this, the patient's fever curve appears to be overall improving. The patient has required a gradual escalation in the amount of respiratory support that she is receiving. She is now on BiPAP with a pressure support of 14/8 centimeters of water with an FiO2 of 70%. Given worsening in the patient's respiratory status, she was transferred to the medical intensive care unit for ongoing management. Following the patient's arrival to the intensive care unit, a repeat arterial blood gas was obtained on her current BiPAP settings with an FiO2 of 70%. Unfortunately, the patients blood gas revealed significant hypoxemia with a PO2 of 50 and a corresponding oxygen sat of 83%. I explained this to the patient along with a detailed explanation of intubation and subsequent mechanical ventilation. My concern is that we are unable to adequately oxygenate the patient on BiPAP. I explained the risks and benefits of intubation with the patient. Following this, the patient was in agreement to proceed with elective intubation. Informed consent was obtained. Bedside Intubation Note: The patient was premedicated with 2 mg of Versed. She was placed in appropriate sniffing position and preoxygenated via bag valve mask. The patient then received 20 mg of etomidate. Video laryngoscopy was performed which revealed a grade 3 view (patient did have an anterior airway) A #7.5 endotracheal tube was subsequently placed without complication, 22 cm at the lips. The patient had positive end-tidal CO2 and equal breath sounds bilaterally. Follow-up chest imaging is currently pending. Past Medical History Past Medical History (Chronic Problems): Chronic Problems Morbid obesity (Chronic) Histrionic personality disorder (Chronic) PTSD (post-traumatic stress disorder) (Chronic) Anxiety (Chronic) Diabetes (Chronic) Allergies No Known Allergies Allergy (Verified 05/23/18 14:58) Home Medications: Ambulatory Orders Medication Instructions Recorded Hydroxyzine Pamoate [Vistaril] 50 mg PO TID 01/13/14 Zolpidem Tartrate [Ambien] 10 mg PO QHS 01/13/14 Atorvastatin Calcium [Lipitor] 40 mg PO QHS 05/23/18 Fluticasone 0.05% [Flonase Nasal 2 sprays NASAL DAILY 05/23/18 [place]] Insulin Human 70/30 [Novolog Mix 35 unit SC BID 05/23/18 70-30 Flexpen Syrn] Linagliptin [Tradjenta] 5 mg PO DAILY 05/23/18 Lorazepam [Ativan] 1 mg PO BID 05/23/18 Meloxicam 7.5 mg PO DAILY 05/23/18 Paliperidone [Paliperidone ER] 6 mg PO BID 05/23/18 Ranitidine HCl 150 mg PO DAILY 05/23/18 Surgical History: cholecystectomy, - - wrist surger (R) Psychiatric History: Anxiety, Depression, Post traumatic stress, - - histrionic personality disorder 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 Lives: Spouse/ Significant Other Smoking Status: Never smoker Tobacco Use: Non-smoker Alcohol: None Drugs: None - *Family History Maternal History Items: Cancer - lung cancer Paternal History Items: No pertinent history Review of Systems Constitutional: Reports: Fever, Malaise, Weakness, Fatigue Eyes: Denies: Blurred vision, Double vision HEENT: Denies: Head Aches, Sinus Congestion, Sinus Drainage Cardiovascular: Denies: Chest Pain, Palpitations Respiratory: Reports: Shortness of Breath Gastrointestinal: Denies: Abdominal Pain, Nausea, Vomiting Genitourinary: Denies: Dysuria Musculoskeletal: Reports: Leg Pain Skin: Denies: Rash, Wounds Neurological: Reports: Balance problems Psychiatric: Reports: Anxiety Hematologic/ Lymphatic: Denies: Easy Bruising, Easy Bleeding Patient Problems: Active and Suspected Problems Chest pain (Acute) CHF (congestive heart failure) (Acute) Pulmonary HTN (Acute) Acute respiratory failure with hypoxia (Acute) PNA (pneumonia) (Acute) Objective: The patient's most recent lab work, culture data and imaging studies have all been personally reviewed. Respiratory viral panel was negative. Strep and urine Legionella antigens were both negative. Blood cultures are currently pending. 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 - Physical Exam General: - - Sleepy but arousable to verbal stimulation. Morbidly obese. Currently tolerating BiPAP but asks repeatedly about eating food. HEENT: Atraumatic, PERRLA, Normocephalic Oral: Dry Mucosa Neck: Supple, No Nodes, Trachea Midline, - - Large neck circumference with redundant soft tissue Lungs: Diminished, Tachypneic, - - Right mid and right lower lung field rales. Cardiovascular: Regular rate, Regular Rhythm, Normal S1, Normal S2, No murmurs Abdomen: Bowel Sounds Present, Soft, Non Tender, Obese Extremities: No clubbing, No cyanosis, No edema Skin: No breakdown Musculoskeletal: No Muscle Wasting Lymphatic: No Cervical, Supraclavicular, or Inguinal Adenopathy Neurological: Neuro grossly intact Psych/Mental Status: Flat Affect Vital Signs Temp Pulse Resp BP Pulse Ox 37.7 C H 85 26 H 122/47 H 90 05/24/18 11:40 05/24/18 11:40 05/24/18 11:40 05/24/18 11:40 05/24/18 11:40 Oxygen Flow Rate (L/min) 11 Oxygen Delivery Method Bi-pap Weight: 308 lb 10.354 oz Body Mass Index (BMI) 49.7 Finger Stick Blood Glucose 283 Intake and Output for Last 24 Hours 05/22/18 05/23/18 05/24/18 23:59 23:59 23:59 Intake Total 1761 / 1761 Output Total 1900 / 1900 Balance -139 / -139 Microbiology Past 72 Hours 05/23/18 18:52 Respiratory Panel (PCR) - Final Mucosa - Nose 05/23/18 15:35 Urine Culture - Preliminary Urine Catheter - [facility]ov[facility] GNR lactose architecture instructor 05/23/18 18:30 Legionella Antigen - Final Urine Catheter - [place] 05/23/18 18:30 Streptococcus pneumoniae Antigen (M - Final Urine Catheter - [facility] Laboratory Tests Past 24 Hrs 05/23/18 05/23/18 05/23/18 15:10 15:10 15:10 WBC 5.1 RBC 5.03 Hgb 13.2 Hct 41.5 MCV 82.5 MCH 26.2 L MCHC 31.8 L RDW 13.7 RDW Differential 40.4 Plt Count 165 MPV 11.0 Immature Gran % (Auto) 0.200 Neut % (Auto) 79.2 H Lymph % (Auto) 9.7 L Giles % (Auto) 10.7 H Eos % (Auto) 0.0 Baso % (Auto) 0.2 Absolute Neuts (auto) 4.0 Absolute Lymphs (auto) 0.49 L Total Counted Not Reportable Differential Comment SCANNED PT 12.9 INR 1.0 APTT 34.9 Specimen Type pH Bicarbonate Actual POC Total CO2 Base Excess O2 Saturation O2 % ABG pCO2 ABG pO2 Respiration Rate O2 Delivery Device EPAP IPAP Blood Gas Notified Whom Blood Gas Notified Time Sodium 137 Potassium 3.5 Chloride 95 L Carbon Dioxide 35.0 H Anion Gap 7 BUN 11 Creatinine 1.07 H Estim Creat Clear Calc 56.41 Est GFR (MDRD) Af Amer 68 Est GFR (MDRD) Non-Af 56 L BUN/Creatinine Ratio 10.3 Glucose 313 H Hemoglobin A1c Lactic Acid Calcium 7.2 L Total Bilirubin 0.20 AST 30 ALT 22 Alkaline Phosphatase 84 Troponin I B-Natriuretic Peptide Total Protein 6.3 L Albumin 2.5 L Globulin 3.8 Albumin/Globulin Ratio 0.7 L Urine Color Urine Clarity Urine pH Ur Specific [place] Urine Protein Urine Glucose (UA) Urine Ketones Urine Occult Blood Urine Nitrite Urine Bilirubin Urine Urobilinogen Ur Leukocyte Esterase Urine RBC Urine WBC Ur Squamous Epith Cells Amorphous Sediment Urine Bacteria Fine Granular Casts Coarse Granular Casts Urine Mucus 05/23/18 05/23/18 05/23/18 15:10 15:10 15:35 WBC RBC Hgb Hct MCV MCH MCHC RDW RDW Differential Plt Count MPV Immature Gran % (Auto) Neut % (Auto) Lymph % (Auto) Giles % (Auto) Eos % (Auto) Baso % (Auto) Absolute Neuts (auto) Absolute Lymphs (auto) Total Counted Differential Comment PT INR APTT Specimen Type pH Bicarbonate Actual POC Total CO2 Base Excess O2 Saturation O2 % ABG pCO2 ABG pO2 Respiration Rate O2 Delivery Device EPAP IPAP Blood Gas Notified Whom Blood Gas Notified Time Sodium Potassium Chloride Carbon Dioxide Anion Gap BUN Creatinine Estim Creat Clear Calc Est GFR (MDRD) Af Amer Est GFR (MDRD) Non-Af BUN/Creatinine Ratio Glucose Hemoglobin A1c Lactic Acid 2.0 Calcium Total Bilirubin AST ALT Alkaline Phosphatase Troponin I B-Natriuretic Peptide 24.7 Total Protein Albumin Globulin Albumin/Globulin Ratio Urine Color Yellow Urine Clarity Cloudy Urine pH 5.0 Ur Specific [place] 1.020 Urine Protein 100 H Urine Glucose (UA) 1000 H Urine Ketones 50 H Urine Occult Blood 50 H Urine Nitrite Negative Urine Bilirubin Negative Urine Urobilinogen Normal Ur Leukocyte Esterase Negative Urine RBC 0 SEEN Urine WBC 0 SEEN Ur Squamous Epith Cells 0-5 SEEN Amorphous Sediment 2+ Urine Bacteria 4+ Fine Granular Casts 5-10 SEEN Coarse Granular Casts 0-5 SEEN Urine Mucus 0 SEEN 05/23/18 05/23/18 05/23/18 17:41 17:45 19:20 WBC RBC Hgb Hct MCV MCH MCHC RDW RDW Differential Plt Count MPV Immature Gran % (Auto) Neut % (Auto) Lymph % (Auto) Giles % (Auto) Eos % (Auto) Baso % (Auto) Absolute Neuts (auto) Absolute Lymphs (auto) Total Counted Differential Comment PT INR APTT Specimen Type ART pH 7.42 Bicarbonate Actual 34.0 H POC Total CO2 36 Base Excess 9 H O2 Saturation 98 O2 % 50 ABG pCO2 52.6 H ABG pO2 101 H Respiration Rate 12 O2 Delivery Device Bi / C PAP EPAP 6 IPAP 12 Blood Gas Notified Whom [facility] Blood Gas Notified Time 1545 Sodium Potassium Chloride Carbon Dioxide Anion Gap BUN Creatinine Estim Creat Clear Calc Est GFR (MDRD) Af Amer Est GFR (MDRD) Non-Af BUN/Creatinine Ratio Glucose Hemoglobin A1c Lactic Acid 1.1 Calcium Total Bilirubin AST ALT Alkaline Phosphatase Troponin I 0.050 H B-Natriuretic Peptide Total Protein Albumin Globulin Albumin/Globulin Ratio Urine Color Urine Clarity Urine pH Ur Specific [place] Urine Protein Urine Glucose (UA) Urine Ketones Urine Occult Blood Urine Nitrite Urine Bilirubin Urine Urobilinogen Ur Leukocyte Esterase Urine RBC Urine WBC Ur Squamous Epith Cells Amorphous Sediment Urine Bacteria Fine Granular Casts Coarse Granular Casts Urine Mucus 05/24/18 05/24/18 05/24/18 00:10 02:32 05:25 WBC 5.9 RBC 5.12 Hgb 13.5 Hct 43.1 MCV 84.2 MCH 26.4 L MCHC 31.3 L RDW 13.9 RDW Differential 43.4 Plt Count 138 L MPV 10.2 Immature Gran % (Auto) 0.200 Neut % (Auto) 72.5 H Lymph % (Auto) 18.0 L Giles % (Auto) 9.0 Eos % (Auto) 0.0 Baso % (Auto) 0.3 Absolute Neuts (auto) 4.3 Absolute Lymphs (auto) 1.06 Total Counted Not Reportable Differential Comment PT INR APTT Specimen Type pH Bicarbonate Actual POC Total CO2 Base Excess O2 Saturation O2 % ABG pCO2 ABG pO2 Respiration Rate O2 Delivery Device EPAP IPAP Blood Gas Notified Whom Blood Gas Notified Time Sodium Potassium Chloride Carbon Dioxide Anion Gap BUN Creatinine Estim Creat Clear Calc Est GFR (MDRD) Af Amer Est GFR (MDRD) Non-Af BUN/Creatinine Ratio Glucose Hemoglobin A1c Lactic Acid Calcium Total Bilirubin AST ALT Alkaline Phosphatase Troponin I 0.034 0.036 B-Natriuretic Peptide Total Protein Albumin Globulin Albumin/Globulin Ratio Urine Color Urine Clarity Urine pH Ur Specific [place] Urine Protein Urine Glucose (UA) Urine Ketones Urine Occult Blood Urine Nitrite Urine Bilirubin Urine Urobilinogen Ur Leukocyte Esterase Urine RBC Urine WBC Ur Squamous Epith Cells Amorphous Sediment Urine Bacteria Fine Granular Casts Coarse Granular Casts Urine Mucus 05/24/18 05/24/18 05/24/18 05:25 05:25 05:25 WBC RBC Hgb Hct MCV MCH MCHC RDW RDW Differential Plt Count MPV Immature Gran % (Auto) Neut % (Auto) Lymph % (Auto) Giles % (Auto) Eos % (Auto) Baso % (Auto) Absolute Neuts (auto) Absolute Lymphs (auto) Total Counted Differential Comment PT INR APTT Specimen Type pH Bicarbonate Actual POC Total CO2 Base Excess O2 Saturation O2 % ABG pCO2 ABG pO2 Respiration Rate O2 Delivery Device EPAP IPAP Blood Gas Notified Whom Blood Gas Notified Time Sodium 137 Potassium 4.1 Chloride 94 L Carbon Dioxide 34.0 H Anion Gap 9 BUN 14 Creatinine 1.28 H Estim Creat Clear Calc 45.40 Est GFR (MDRD) Af Amer 55 L Est GFR (MDRD) Non-Af 46 L BUN/Creatinine Ratio 10.9 Glucose 374 H Hemoglobin A1c 12.5 H Lactic Acid Calcium 7.6 L Total Bilirubin AST ALT Alkaline Phosphatase Troponin I 0.023 B-Natriuretic Peptide Total Protein Albumin Globulin Albumin/Globulin Ratio Urine Color Urine Clarity Urine pH Ur Specific [place] Urine Protein Urine Glucose (UA) Urine Ketones Urine Occult Blood Urine Nitrite Urine Bilirubin Urine Urobilinogen Ur Leukocyte Esterase Urine RBC Urine WBC Ur Squamous Epith Cells Amorphous Sediment Urine Bacteria Fine Granular Casts Coarse Granular Casts Urine Mucus POC Glucose 05/24/18 05/24/18 05/23/18 11:01 06:31 22:43 POC Glucose 359 H 373 H 461 H* 05/23/18 22:41 POC Glucose 478 H* Clinical Impression(s) from Imaging Studies Chest X-Ray 05/23/18 15:15 IMPRESSION: Findings suggestive CHF with superimposed atelectasis and/or infiltrate in the right midlung. Electronically Signed: Royer Rowe MD at 15:56 EST , Service support , Assessment/Plan Active and Suspected Problems Chest pain (Acute) CHF (congestive heart failure) (Acute) Pulmonary HTN (Acute) Acute respiratory failure with hypoxia (Acute) PNA (pneumonia) (Acute) RECOMMENDATIONS: 1. Discontinue azithromycin and ceftriaxone. Antibiotics will be broadened accordingly. 2. Check MRSA screen. 3. Obtain repeat arterial blood gas 4. Avoid overly sedating medications. 5. Patient to remain n.p.o. 6. Continue Pepcid and Lovenox for prophylaxis. IMPRESSIONS: 1. Acute combined respiratory failure secondary to severe community-acquired pneumonia The patient has required ever escalating amounts of respiratory support since her admission to the hospital. She was transferred from the progressive care unit to the intensive care unit on May 24. At this time, given the severity of the patient's illness, I would recommend broadening her antibiotics. We will plan to check an MRSA screen. The patient will be continued on BiPAP for now with plans to obtain a repeat arterial blood gas. The patient was advised that she is currently n.p.o. I strongly suspect that in addition to obstructive sleep apnea, the patient likely has a component of alveolar hypoventilation secondary to her severe obesity. 2. Acute kidney injury Potentially prerenal in etiology, as the patient was initially diuresed on admission to the hospital. Gentle IV fluid hydration can be considered. I would recommend discontinuation of Mobic, given the patient's acute kidney injury. 3. Indeterminate troponin Echocardiogram is currently pending. 4. Morbid obesity/diabetes mellitus/anxiety/depression/PTSD Complicates care, management, recovery and prognosis. Recommend conservative use of sedating medications, given tenuous respiratory status. UPDATE: As noted above, the decision was made to electively intubate the patient after consent was obtained due to worsening respiratory status and subsequent hypoxemia. We will continue current supportive measures with invasive mechanical ventilation and broad-spectrum antibiotics. TIME: 50 minutes of critical care time, independent of procedures, was spent addressing the patient's acute combined respiratory failure, severe community-acquired pneumonia, acute kidney injury, indeterminate troponin, morbid obesity, review of all data and collaboration with the care team. ([id number], [id number]) Code Visit [id number]: [id number] Critical care first hour
--- NOTE | 2018-05-24 12:41 | CON.PCM_ITS ---
Reason for Consult Date of Consultation: 05/24/18 Reason for Consultation: Acute hypoxemic and hypercarbic respiratory failure History of Present Illness: The patient is a morbidly obese 57-year-old female, with a history as outlined below, who presented to the emergency department on May 23 with generalized malaise, weakness, cough and shortness of breath. She reported that her boyfriend with whom she resides was recently positive for influenza. She denies a history of COPD or asthma. She reports that she is a lifelong non-smoker. She has never been evaluated for underlying obstructive sleep apnea. On presentation to the emergency department, the patient was noted to be febril e, tachypneic and hypoxemic. Laboratory evaluation revealed no evidence of a leukocytosis. Coagulation profile was within normal limits. Chemistry profile revealed elevated serum bicarbonate to 35 along with an elevated creatinine of 1.07. Lactate was within normal limits. Initial troponin was increased to 0.050. Urinalysis revealed presence of 4+ urine bacteria. Plain film chest x- ray was largely of suboptimal quality with poor penetration due to the patient's body habitus. There appeared to be evidence of an infiltrate in the right midlung. The patient was treated in the emergency department with antibiotics, aerosol treatments and steroids. She was subsequently placed on a Ventimask at 50%. The patient was then admitted to the progressive care unit for ongoing management. The patient initially received IV diuretics over concerns for a CHF exacerbation. However, the patient's respiratory status continued to worsen. Her creatinine also increased to 1.28 this morning. The patient's repeat plain film chest x-ray from this morning appears to show interval worsening. Despite this, the patient's fever curve appears to be overall improving. The patient has required a gradual escalation in the amount of respiratory support that she is receiving. She is now on BiPAP with a pressure support of 14/8 centimeters of water with an FiO2 of 70%. Given worsening in the patient's respiratory status, she was transferred to the medical intensive care unit for ongoing management. Following the patient's arrival to the intensive care unit, a repeat arterial blood gas was obtained on her current BiPAP settings with an FiO2 of 70%. Unfortunately, the patients blood gas revealed significant hypoxemia with a PO2 of 50 and a corresponding oxygen sat of 83%. I explained this to the patient along with a detailed explanation of intubation and subsequent mechanical ventilation. My concern is that we are unable to adequately oxygenate the patient on BiPAP. I explained the risks and benefits of intubation with the patient. Following this, the patient was in agreement to proceed with elective intubation. Informed consent was obtained. Bedside Intubation Note: The patient was premedicated with 2 mg of Versed. She was placed in appropriate sniffing position and preoxygenated via bag valve mask. The patient then received 20 mg of etomidate. Video laryngoscopy was performed which revealed a grade 3 view (patient did have an anterior airway) A #7.5 endotracheal tube was subsequently placed without complication, 22 cm at the lips. The patient had positive end-tidal CO2 and equal breath sounds bilaterally. Follow-up chest imaging is currently pending. Past Medical History Past Medical History (Chronic Problems): Chronic Problems Morbid obesity (Chronic) Histrionic personality disorder (Chronic) PTSD (post-traumatic stress disorder) (Chronic) Anxiety (Chronic) Diabetes (Chronic) Allergies No Known Allergies Allergy (Verified 05/23/18 14:58) Home Medications: Ambulatory Orders Medication Instructions Recorded Hydroxyzine Pamoate [Vistaril] 50 mg PO TID 01/13/14 Zolpidem Tartrate [Ambien] 10 mg PO QHS 01/13/14 Atorvastatin Calcium [Lipitor] 40 mg PO QHS 05/23/18 Fluticasone 0.05% [Flonase Nasal 2 sprays NASAL DAILY 05/23/18 [place]] Insulin Human 70/30 [Novolog Mix 35 unit SC BID 05/23/18 70-30 Flexpen Syrn] Linagliptin [Tradjenta] 5 mg PO DAILY 05/23/18 Lorazepam [Ativan] 1 mg PO BID 05/23/18 Meloxicam 7.5 mg PO DAILY 05/23/18 Paliperidone [Paliperidone ER] 6 mg PO BID 05/23/18 Ranitidine HCl 150 mg PO DAILY 05/23/18 Surgical History: cholecystectomy, - - wrist surger (R) Psychiatric History: Anxiety, Depression, Post traumatic stress, - - histrionic personality disorder 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 Lives: Spouse/ Significant Other Smoking Status: Never smoker Tobacco Use: Non-smoker Alcohol: None Drugs: None - *Family History Maternal History Items: Cancer - lung cancer Paternal History Items: No pertinent history Review of Systems Constitutional: Reports: Fever, Malaise, Weakness, Fatigue Eyes: Denies: Blurred vision, Double vision HEENT: Denies: Head Aches, Sinus Congestion, Sinus Drainage Cardiovascular: Denies: Chest Pain, Palpitations Respiratory: Reports: Shortness of Breath Gastrointestinal: Denies: Abdominal Pain, Nausea, Vomiting Genitourinary: Denies: Dysuria Musculoskeletal: Reports: Leg Pain Skin: Denies: Rash, Wounds Neurological: Reports: Balance problems Psychiatric: Reports: Anxiety Hematologic/ Lymphatic: Denies: Easy Bruising, Easy Bleeding Patient Problems: Active and Suspected Problems Chest pain (Acute) CHF (congestive heart failure) (Acute) Pulmonary HTN (Acute) Acute respiratory failure with hypoxia (Acute) PNA (pneumonia) (Acute) Objective: The patient's most recent lab work, culture data and imaging studies have all been personally reviewed. Respiratory viral panel was negative. Strep and urine Legionella antigens were both negative. Blood cultures are currently pending. Preliminary urine culture revealed a gram-negative lactose aviation engineer. - Physical Exam General: - - Sleepy but arousable to verbal stimulation. Morbidly obese. Currently tolerating BiPAP but asks repeatedly about eating food. HEENT: Atraumatic, PERRLA, Normocephalic Oral: Dry Mucosa Neck: Supple, No Nodes, Trachea Midline, - - Large neck circumference with redundant soft tissue Lungs: Diminished, Tachypneic, - - Right mid and right lower lung field rales. Cardiovascular: Regular rate, Regular Rhythm, Normal S1, Normal S2, No murmurs Abdomen: Bowel Sounds Present, Soft, Non Tender, Obese Extremities: No clubbing, No cyanosis, No edema Skin: No breakdown Musculoskeletal: No Muscle Wasting Lymphatic: No Cervical, Supraclavicular, or Inguinal Adenopathy Neurological: Neuro grossly intact Psych/Mental Status: Flat Affect Vital Signs Temp Pulse Resp BP Pulse Ox 37.7 C H 85 26 H 122/47 H 90 05/24/18 11:40 05/24/18 11:40 05/24/18 11:40 05/24/18 11:40 05/24/18 11:40 Oxygen Flow Rate (L/min) 11 Oxygen Delivery Method Bi-pap Weight: 308 lb 10.354 oz Body Mass Index (BMI) 49.7 Finger Stick Blood Glucose 283 Intake and Output for Last 24 Hours 05/22/18 05/23/1819 23:59 23:59 23:59 Intake Total 1761 / 1761 Output Total 1900 / 1900 Balance -139 / -139 Microbiology Past 72 Hours 05/23/18 18:52 Respiratory Panel (PCR) - Final Mucosa - Nose 05/23/18 15:35 Urine Culture - Preliminary Urine Catheter - [place] GNR lactose aviation engineer 05/23/18 18:30 Legionella Antigen - Final Urine Catheter - [place] 05/23/18 18:30 Streptococcus pneumoniae Antigen (M - Final Urine Catheter - [facility] Laboratory Tests Past 24 Hrs 05/23/18 05/23/18 05/23/18 15:10 15:10 15:10 WBC 5.1 RBC 5.03 Hgb 13.2 Hct 41.5 MCV 82.5 MCH 26.2 L MCHC 31.8 L RDW 13.7 RDW Differential 40.4 Plt Count 165 MPV 11.0 Immature Gran % (Auto) 0.200 Neut % (Auto) 79.2 H Lymph % (Auto) 9.7 L [place] % (Auto) 10.7 H Eos % (Auto) 0.0 Baso % (Auto) 0.2 Absolute Neuts (auto) 4.0 Absolute Lymphs (auto) 0.49 L Total Counted Not Reportable Differential Comment SCANNED PT 12.9 INR 1.0 APTT 34.9 Specimen Type pH Bicarbonate Actual POC Total CO2 Base Excess O2 Saturation O2 % ABG pCO2 ABG pO2 Respiration Rate O2 Delivery Device EPAP IPAP Blood Gas Notified Whom Blood Gas Notified Time Sodium 137 Potassium 3.5 Chloride 95 L Carbon Dioxide 35.0 H Anion Gap 7 BUN 11 Creatinine 1.07 H Estim Creat Clear Calc 56.41 Est GFR (MDRD) Af Amer 68 Est GFR (MDRD) Non-Af 56 L BUN/Creatinine Ratio 10.3 Glucose 313 H Hemoglobin A1c Lactic Acid Calcium 7.2 L Total Bilirubin 0.20 AST 30 ALT 22 Alkaline Phosphatase 84 Troponin I B-Natriuretic Peptide Total Protein 6.3 L Albumin 2.5 L Globulin 3.8 Albumin/Globulin Ratio 0.7 L Urine Color Urine Clarity Urine pH Ur Specific [place] Urine Protein Urine Glucose (UA) Urine Ketones Urine Occult Blood Urine Nitrite Urine Bilirubin Urine Urobilinogen Ur Leukocyte Esterase Urine RBC Urine WBC Ur Squamous Epith Cells Amorphous Sediment Urine Bacteria Fine Granular Casts Coarse Granular Casts Urine Mucus 05/23/18 05/23/18 05/23/18 15:10 15:10 15:35 WBC RBC Hgb Hct MCV MCH MCHC RDW RDW Differential Plt Count MPV Immature Gran % (Auto) Neut % (Auto) Lymph % (Auto) [place] % (Auto) Eos % (Auto) Baso % (Auto) Absolute Neuts (auto) Absolute Lymphs (auto) Total Counted Differential Comment PT INR APTT Specimen Type pH Bicarbonate Actual POC Total CO2 Base Excess O2 Saturation O2 % ABG pCO2 ABG pO2 Respiration Rate O2 Delivery Device EPAP IPAP Blood Gas Notified Whom Blood Gas Notified Time Sodium Potassium Chloride Carbon Dioxide Anion Gap BUN Creatinine Estim Creat Clear Calc Est GFR (MDRD) Af Amer Est GFR (MDRD) Non-Af BUN/Creatinine Ratio Glucose Hemoglobin A1c Lactic Acid 2.0 Calcium Total Bilirubin AST ALT Alkaline Phosphatase Troponin I B-Natriuretic Peptide 24.7 Total Protein Albumin Globulin Albumin/Globulin Ratio Urine Color Yellow Urine Clarity Cloudy Urine pH 5.0 Ur Specific [place] 1.020 Urine Protein 100 H Urine Glucose (UA) 1000 H Urine Ketones 50 H Urine Occult Blood 50 H Urine Nitrite Negative Urine Bilirubin Negative Urine Urobilinogen Normal Ur Leukocyte Esterase Negative Urine RBC 0 SEEN Urine WBC 0 SEEN Ur Squamous Epith Cells 0-5 SEEN Amorphous Sediment 2+ Urine Bacteria 4+ Fine Granular Casts 5-10 SEEN Coarse Granular Casts 0-5 SEEN Urine Mucus 0 SEEN 05/23/18 05/23/18 05/23/18 17:41 17:45 19:20 WBC RBC Hgb Hct MCV MCH MCHC RDW RDW Differential Plt Count MPV Immature Gran % (Auto) Neut % (Auto) Lymph % (Auto) [place] % (Auto) Eos % (Auto) Baso % (Auto) Absolute Neuts (auto) Absolute Lymphs (auto) Total Counted Differential Comment PT INR APTT Specimen Type ART pH 7.42 Bicarbonate Actual 34.0 H POC Total CO2 36 Base Excess 9 H O2 Saturation 98 O2 % 50 ABG pCO2 52.6 H ABG pO2 101 H Respiration Rate 12 O2 Delivery Device Bi / C PAP EPAP 6 IPAP 12 Blood Gas Notified Whom [facility] Blood Gas Notified Time 1545 Sodium Potassium Chloride Carbon Dioxide Anion Gap BUN Creatinine Estim Creat Clear Calc Est GFR (MDRD) Af Amer Est GFR (MDRD) Non-Af BUN/Creatinine Ratio Glucose Hemoglobin A1c Lactic Acid 1.1 Calcium Total Bilirubin AST ALT Alkaline Phosphatase Troponin I 0.050 H B-Natriuretic Peptide Total Protein Albumin Globulin Albumin/Globulin Ratio Urine Color Urine Clarity Urine pH Ur Specific [place] Urine Protein Urine Glucose (UA) Urine Ketones Urine Occult Blood Urine Nitrite Urine Bilirubin Urine Urobilinogen Ur Leukocyte Esterase Urine RBC Urine WBC Ur Squamous Epith Cells Amorphous Sediment Urine Bacteria Fine Granular Casts Coarse Granular Casts Urine Mucus 05/24/18 05/24/18 05/24/18 00:10 02:32 05:25 WBC 5.9 RBC 5.12 Hgb 13.5 Hct 43.1 MCV 84.2 MCH 26.4 L MCHC 31.3 L RDW 13.9 RDW Differential 43.4 Plt Count 138 L MPV 10.2 Immature Gran % (Auto) 0.200 Neut % (Auto) 72.5 H Lymph % (Auto) 18.0 L [place] % (Auto) 9.0 Eos % (Auto) 0.0 Baso % (Auto) 0.3 Absolute Neuts (auto) 4.3 Absolute Lymphs (auto) 1.06 Total Counted Not Reportable Differential Comment PT INR APTT Specimen Type pH Bicarbonate Actual POC Total CO2 Base Excess O2 Saturation O2 % ABG pCO2 ABG pO2 Respiration Rate O2 Delivery Device EPAP IPAP Blood Gas Notified Whom Blood Gas Notified Time Sodium Potassium Chloride Carbon Dioxide Anion Gap BUN Creatinine Estim Creat Clear Calc Est GFR (MDRD) Af Amer Est GFR (MDRD) Non-Af BUN/Creatinine Ratio Glucose Hemoglobin A1c Lactic Acid Calcium Total Bilirubin AST ALT Alkaline Phosphatase Troponin I 0.034 0.036 B-Natriuretic Peptide Total Protein Albumin Globulin Albumin/Globulin Ratio Urine Color Urine Clarity Urine pH Ur Specific [place] Urine Protein Urine Glucose (UA) Urine Ketones Urine Occult Blood Urine Nitrite Urine Bilirubin Urine Urobilinogen Ur Leukocyte Esterase Urine RBC Urine WBC Ur Squamous Epith Cells Amorphous Sediment Urine Bacteria Fine Granular Casts Coarse Granular Casts Urine Mucus 05/24/18 05/24/18 05/24/18 05:25 05:25 05:25 WBC RBC Hgb Hct MCV MCH MCHC RDW RDW Differential Plt Count MPV Immature Gran % (Auto) Neut % (Auto) Lymph % (Auto) [place] % (Auto) Eos % (Auto) Baso % (Auto) Absolute Neuts (auto) Absolute Lymphs (auto) Total Counted Differential Comment PT INR APTT Specimen Type pH Bicarbonate Actual POC Total CO2 Base Excess O2 Saturation O2 % ABG pCO2 ABG pO2 Respiration Rate O2 Delivery Device EPAP IPAP Blood Gas Notified Whom Blood Gas Notified Time Sodium 137 Potassium 4.1 Chloride 94 L Carbon Dioxide 34.0 H Anion Gap 9 BUN 14 Creatinine 1.28 H Estim Creat Clear Calc 45.40 Est GFR (MDRD) Af Amer 55 L Est GFR (MDRD) Non-Af 46 L BUN/Creatinine Ratio 10.9 Glucose 374 H Hemoglobin A1c 12.5 H Lactic Acid Calcium 7.6 L Total Bilirubin AST ALT Alkaline Phosphatase Troponin I 0.023 B-Natriuretic Peptide Total Protein Albumin Globulin Albumin/Globulin Ratio Urine Color Urine Clarity Urine pH Ur Specific [place] Urine Protein Urine Glucose (UA) Urine Ketones Urine Occult Blood Urine Nitrite Urine Bilirubin Urine Urobilinogen Ur Leukocyte Esterase Urine RBC Urine WBC Ur Squamous Epith Cells Amorphous Sediment Urine Bacteria Fine Granular Casts Coarse Granular Casts Urine Mucus POC Glucose 05/24/18 05/24/18 05/23/18 11:01 06:31 22:43 POC Glucose 359 H 373 H 461 H* 05/23/18 22:41 POC Glucose 478 H* Clinical Impression(s) from Imaging Studies Chest X-Ray 05/23/18 15:15 IMPRESSION: Findings suggestive CHF with superimposed atelectasis and/or infiltrate in the right midlung. Electronically Signed: Royer Rowe MD at 15:56 EST , Service support , Assessment/Plan Active and Suspected Problems Chest pain (Acute) CHF (congestive heart failure) (Acute) Pulmonary HTN (Acute) Acute respiratory failure with hypoxia (Acute) PNA (pneumonia) (Acute) RECOMMENDATIONS: 1. Discontinue azithromycin and ceftriaxone. Antibiotics will be broadened accordingly. 2. Check MRSA screen. 3. Obtain repeat arterial blood gas 4. Avoid overly sedating medications. 5. Patient to remain n.p.o. 6. Continue Pepcid and Lovenox for prophylaxis. IMPRESSIONS: 1. Acute combined respiratory failure secondary to severe community-acquired pneumonia The patient has required ever escalating amounts of respiratory support since her admission to the hospital. She was transferred from the progressive care unit to the intensive care unit on May 24. At this time, given the severity of the patient's illness, I would recommend broadening her antibiotics. We will plan to check an MRSA screen. The patient will be continued on BiPAP for now with plans to obtain a repeat arterial blood gas. The patient was advised that she is currently n.p.o. I strongly suspect that in addition to obstructive sleep apnea, the patient likely has a component of alveolar hypoventilation secondary to her severe obesity. 2. Acute kidney injury Potentially prerenal in etiology, as the patient was initially diuresed on admission to the hospital. Gentle IV fluid hydration can be considered. I would recommend discontinuation of Mobic, given the patient's acute kidney injury. 3. Indeterminate troponin Echocardiogram is currently pending. 4. Morbid obesity/diabetes mellitus/anxiety/depression/PTSD Complicates care, management, recovery and prognosis. Recommend conservative use of sedating medications, given tenuous respiratory status. UPDATE: As noted above, the decision was made to electively intubate the patient after consent was obtained due to worsening respiratory status and subsequent hypoxemia. We will continue current supportive measures with invasive mechanical ventilation and broad-spectrum antibiotics. TIME: 50 minutes of critical care time, independent of procedures, was spent addressing the patient's acute combined respiratory failure, severe community- acquired pneumonia, acute kidney injury, indeterminate troponin, morbid obesity, review of all data and collaboration with the care team. ([id number], [id number]) Code Visit [id number]: [id number] Critical care first hour
[2018-05-24 14:11] LABS: Allen Test POS; Base Excess 14 mmol/L (-2 to +2); Bicarbonate 38.9 mmol/L (22-26); Blood Gas Specimen Type ART; EPAP 8; FI02 70; IPAP 14; PO2 50 mmHG (75-100); SITE R Radial; SO2 83 % (95-99); Time Given 1400; Total Carbon Dioxide 41 mmol/L; pCO2 64.9 mmHg (35-45); pH 7.39 (7.35-7.45)
[2018-05-24] MEDS: Midazolam 2 MG/2 ML Syringe IV (14:31)
[2018-05-24] MEDS: Propofol 10MG/Ml 1,000 MG/100 ML Bottle 8.4 MG CONT INF (14:35)
[2018-05-24] MEDS: fentaNYL drip 100 ML 5 MCG IV (14:35)
--- NOTE | 2018-05-24 14:46 | RAD_ITS ---
STUDY: X-RAY - ABDOMEN/PELVIS REASON FOR EXAM: Female, 57 years old. OG tube placement. TECHNIQUE: Single AP view of the abdomen / pelvis. COMPARISON: Comparison is made with prior examination done earlier today. FINDINGS: The tip of the orogastric tube is within the body of the stomach. RAD/Abdomen Single View (Portable) IMPRESSION: The tip of the orogastric tube is in the body of the stomach. Electronically Signed: Royer Rowe MD at 15:43 EST , Service support ,
[2018-05-24 14:53] LABS: M R Staph aureus DNA By PCR Negative (Negative); Probe Check PASS; Specimen Processing Control PASS
[2018-05-24] MEDS: Etomidate 20 MG/10 ML Vial IV (14:59)
--- NOTE | 2018-05-24 15:10 | RAD_ITS ---
STUDY: X-RAY CHEST REASON FOR EXAM: Female, 57 years old. Endotracheal tube placement. TECHNIQUE: Single AP portable view of the chest. COMPARISON: Comparison is made with prior examination done earlier today. FINDINGS: The tip of the endotracheal tube is at 6.3 cm proximal to the ehsan. An orogastric tube is seen below the left hemidiaphragm. Stable pulmonary infiltrates worse in the right lung. Blunting of the left costophrenic angle. RAD/Chest 1 View (Portable) IMPRESSION: The tip of the endotracheal tube is at 6.3 cm proximal to the hesan. Electronically Signed: Royer Rowe MD at 15:44 EST , Service support ,
--- NOTE | 2018-05-24 15:42 | NURSING ---
DR MIXON AT BEDSIDE FOR INTUBATION OF PATIENT 1431 2MG VERSED IVP BY DR MIXON 1433 20MG ETOMIDATE GIVEN BY DR MIXON 1434 7.[address] MIXON 22@ LIP POSITIVE COLOR CHANGE BILAT BREATH SOUNDS FENTANYL AND PROPOFOL STARTED AT 1435 SEE MED TITRATION 1530 RT ADVANCED ETT TO 25 @ THE LIP PER DR MIXON
[2018-05-24 15:57] LABS: CPK Total, Creatine Kinase 183 U/L (26-192); Triglycerides 139 mg/dL
[2018-05-24] MEDS: Nystatin Powder 15gm Bottle 1 APPLIC TOPICAL ×2 (16:02→22:37)
[2018-05-24] MEDS: Acetaminophen 650 MG/20 ML UDC GT (16:04)
[2018-05-24 16:30] LABS: Allen Test POS; Base Excess 13 mmol/L (-2 to +2); Bicarbonate 37.4 mmol/L (22-26); Blood Gas Specimen Type ART; FI02 70; Mode A-C; O2 Delivery Device Vent; PEEP 10; PO2 74 mmHG (75-100); RR 14; SITE R Radial; SO2 95 % (95-99); Time Given 1620; Total Carbon Dioxide 39 mmol/L; Vt 400; pCO2 53.4 mmHg (35-45); pH 7.45 (7.35-7.45)
[2018-05-24 17:46] LABS: Bedside Glucose 156 mg/dL (70-110)
[2018-05-24] MEDS: fentaNYL drip 100 ML 15 MCG IV (20:39)
[2018-05-24] MEDS: Chlorhexidine 15 ML PO (22:00)
[2018-05-25] VITALS (38 sets, daily range): BP systolic 91–129; BP diastolic 49–88; PULSE 55–86; RESP 14–20; TEMP 37.9–38.8; O2SAT 87–97
[2018-05-25 00:01] LABS: Bedside Glucose 241 mg/dL (70-110)
[2018-05-25] MEDS: Acetaminophen 650 MG/20 ML UDC GT (01:27)
[2018-05-25] MEDS: Propofol 10MG/Ml 1,000 MG/100 ML Bottle 8.4 MG CONT INF (01:28)
[2018-05-25] MEDS: Ipratropium/Albuterol Sulfate 3 ML AMPUL.NEB INHALATION ×5 (02:15→19:07)
[2018-05-25] MEDS: fentaNYL drip 100 ML 15 MCG IV ×3 (04:37→19:56)
[2018-05-25 05:04] LABS: Absolute Lymphocyte Count 1.12 X10^3/ul (0.83-4.51); Absolute Neutrophil Count 4.2 X10^3/uL (2.0-7.7); Anion Gap 9 (5-15); BUN 22 mg/dL (7-18); BUN/Creat Ratio 7.9 RATIO (10-20); Basophil# 0.07 X10^3/uL; Basophil% 1.2 % (0-1); Calcium,Total 7.5 mg/dL (8.5-10.1); Chloride 96 mmol/L (98-107); Creatinine, Serum 2.78 mg/dL (0.55-1.02); EST Glomerular Filtration Rate 19 mL/min (>60); Est Glom Filt Rate - Afr Amer 23 mL/min (>60); Glucose 250 mg/dL (74-106); Hematocrit 42.1 % (37-47); Hemoglobin 13.2 g/dl (12.0-15.0); Lymphocyte # 1.12 X10^3/ul (4.0); Magnesium 2.1 mg/dL (1.6-2.6); Mean Corp Hgb Conc 31.4 g/gl (32-36); Mean Corpuscular Volume 82.9 fL (81-99); Mean Platelet Vol. 10.6 fl (6.2-12.0); Monocyte# 0.25 X10^3/uL; Monocyte% 4.5 % (0-10); Neutrophil # 4.15 X10^3/uL (2.7-7.7); Neutrophil % 73.9 % (47-70); Phosphorus 4.3 mg/dL (2.5-4.9); Platelet Count 151 K/mm3 (150-450); Potassium 3.8 mmol/L (3.5-5.1); RBC Distribution Width CV 14.2 % (11.6-14.6); RBC Distribution Width SD 42.7 fl (35.1-43.9); Red Blood Count 5.08 M/mm3 (4.2-5.4); Sodium Level 140 mmol/L (136-145); White Blood Count 5.6 K/mm3 (4.4-11.0)
[2018-05-25 05:06] LABS: Differential Indicated SCAN CRITERIA MET; POSITIVE COUNT NO; POSITIVE DIFFERENTIAL NO; POSITIVE MORPHOLOGY YES
--- NOTE | 2018-05-25 05:11 | RAD_ITS ---
STUDY: X-RAY CHEST REASON FOR EXAM: Female, 57 years old. Shortness of breath. TECHNIQUE: Single AP portable view of the chest. COMPARISON: Comparison is made with prior study dated May 24, 2018. FINDINGS: An endotracheal tube is in situ. The tip of the tube is at 2.4 cm proximal to the ehsan. An orogastric tube is seen with the tip below the left hemidiaphragm. Persistent infiltrate in the right lung. Stable pleural parenchymal changes at the left lung base. There is mild cardiac enlargement. Normal mediastinum and lyric. Normal visualized pulmonary arteries. There is atherosclerotic calcification of the aortic arch with tortuosity. There are diffuse degenerative changes of the visualized thoracic spine. Normal visualized ribs, clavicles, and shoulders. There is no demonstrated abnormality of the visualized soft tissue structures of the upper abdomen. RAD/Chest 1 View (Portable) IMPRESSION: The tip of the endotracheal tube is at 2.4 sinus proximal to the ehsan. The remainder the examination is unchanged. Electronically Signed: Royer Rowe MD at 8:15 EST , Service support ,
[2018-05-25] MEDS: Insulin Lispro 100 UNIT/ML INSULN.PEN SC ×4 (05:53→23:52)
[2018-05-25] MEDS: Enoxaparin 40 MG/0.4 ML Syringe SC (05:54)
[2018-05-25] MEDS: Nystatin Powder 15gm Bottle 1 APPLIC TOPICAL ×3 (05:54→21:09)
[2018-05-25 06:06] LABS: Bedside Glucose 219 mg/dL (70-110)
--- NOTE | 2018-05-25 06:56 | PCM.PN.INT ---
Subjective: The patient was seen and examined at the bedside this morning. Events from the last 24 hours have been reviewed. The patient was persistently febrile overnight with a T-max of 38.8 ?C. The patient did become transiently hypotensive overnight, which was felt to be a consequence of her sedation. Her hemodynamics improved after her sedation was weaned. The patient is requiring a significant amount of ventilator support with an FiO2 of 90% and PEEP of 10. Creatinine has worsened this morning to 2.78. Her urine output has also been on the low side. The patient is currently sedated on propofol at 5 mg and fentanyl at 150 mcg. Echocardiogram was postponed until today, as the patient was being intubated yesterday. Objective: The patient's most recent lab work, culture data and imaging studies have all been personally reviewed. Blood cultures are currently pending. Preliminary urine culture revealed a gram-negative severo. Strep and urine Legionella antigens were both negative. Respiratory viral panel was negative. Sputum culture is currently pending. General: - - The patient is currently intubated, sedated and mechanically ventilated. No ventilator dyssynchrony noted. HEENT: Atraumatic, PERRLA, Normocephalic Oral: No Gingival or Mucosal Lesions/ Ulcerations, - - Endotracheal and OG tubes in place Neck: Supple, No Nodes, Trachea Midline Lungs: No rhonchi, No wheeze, Diminished, Rales Cardiovascular: Regular rate, Regular Rhythm, Normal S1, Normal S2, No murmurs Abdomen: Bowel Sounds Present, Soft, Non Tender, Obese Extremities: No clubbing, No cyanosis, Edema Skin: - - No significant change from previous. Musculoskeletal: No Muscle Wasting Lymphatic: No Cervical, Supraclavicular, or Inguinal Adenopathy Neurological: - - No focal neurological deficits. Currently sedated with a RASS of -1. Will open eyes to verbal stimulation only. Vital Signs Temp Pulse Resp BP Pulse Ox 37.9 C H 61 14 98/62 94 05/25/18 06:00 05/25/18 06:00 05/25/18 06:00 05/25/18 06:00 05/25/18 06:00 Oxygen Flow Rate (L/min) 11 Oxygen Delivery Method Mechanical Ventilator Weight: 305 lb 1.916 oz Body Mass Index (BMI) 49.7 Finger Stick Blood Glucose 283 Intake and Output for Last 24 Hours 05/23/18 05/24/18 05/25/18 23:59 23:59 23:59 Intake Total 2007 492 / 492 Output Total 1900 / 1900 125 / 125 Balance 108 / 108 367 / 367 Labs (Last 48 Hours) 05/23/18 05/23/18 05/23/18 15:10 15:10 15:10 WBC 5.1 RBC 5.03 Hgb 13.2 Hct 41.5 MCV 82.5 MCH 26.2 L MCHC 31.8 L RDW 13.7 RDW Differential 40.4 Plt Count 165 MPV 11.0 Immature Gran % (Auto) 0.200 Neut % (Auto) 79.2 H Lymph % (Auto) 9.7 L Keith % (Auto) 10.7 H Eos % (Auto) 0.0 Baso % (Auto) 0.2 Absolute Neuts (auto) 4.0 Absolute Lymphs (auto) 0.49 L Total Counted Not Reportable Differential Comment SCANNED PT 12.9 INR 1.0 APTT 34.9 Specimen Type Sample Site pH Bicarbonate Actual POC Total CO2 Base Excess O2 Saturation O2 % ABG pCO2 ABG pO2 Bk Test Respiration Rate O2 Delivery Device Vent Mode Tidal Volume POC PEEP EPAP IPAP Blood Gas Notified Whom Blood Gas Notified Time Sodium 137 Potassium 3.5 Chloride 95 L Carbon Dioxide 35.0 H Anion Gap 7 BUN 11 Creatinine 1.07 H Estim Creat Clear Calc 56.41 Est GFR (MDRD) Af Amer 68 Est GFR (MDRD) Non-Af 56 L BUN/Creatinine Ratio 10.3 Glucose 313 H Hemoglobin A1c Lactic Acid Calcium 7.2 L Phosphorus Magnesium Total Bilirubin 0.20 AST 30 ALT 22 Alkaline Phosphatase 84 Total Creatine Kinase Troponin I B-Natriuretic Peptide Total Protein 6.3 L Albumin 2.5 L Globulin 3.8 Albumin/Globulin Ratio 0.7 L Triglycerides Urine Color Urine Clarity Urine pH Ur Specific [place] Urine Protein Urine Glucose (UA) Urine Ketones Urine Occult Blood Urine Nitrite Urine Bilirubin Urine Urobilinogen Ur Leukocyte Esterase Urine RBC Urine WBC Ur Squamous Epith Cells Amorphous Sediment Urine Bacteria Fine Granular Casts Coarse Granular Casts Urine Mucus MRSA (PCR) POC Glucose 05/23/18 05/23/18 05/23/18 15:10 15:10 15:35 WBC RBC Hgb Hct MCV MCH MCHC RDW RDW Differential Plt Count MPV Immature Gran % (Auto) Neut % (Auto) Lymph % (Auto) Keith % (Auto) Eos % (Auto) Baso % (Auto) Absolute Neuts (auto) Absolute Lymphs (auto) Total Counted Differential Comment PT INR APTT Specimen Type Sample Site pH Bicarbonate Actual POC Total CO2 Base Excess O2 Saturation O2 % ABG pCO2 ABG pO2 Bk Test Respiration Rate O2 Delivery Device Vent Mode Tidal Volume POC PEEP EPAP IPAP Blood Gas Notified Whom Blood Gas Notified Time Sodium Potassium Chloride Carbon Dioxide Anion Gap BUN Creatinine Estim Creat Clear Calc Est GFR (MDRD) Af Amer Est GFR (MDRD) Non-Af BUN/Creatinine Ratio Glucose Hemoglobin A1c Lactic Acid 2.0 Calcium Phosphorus Magnesium Total Bilirubin AST ALT Alkaline Phosphatase Total Creatine Kinase Troponin I B-Natriuretic Peptide 24.7 Total Protein Albumin Globulin Albumin/Globulin Ratio Triglycerides Urine Color Yellow Urine Clarity Cloudy Urine pH 5.0 Ur Specific [place] 1.020 Urine Protein 100 H Urine Glucose (UA) 1000 H Urine Ketones 50 H Urine Occult Blood 50 H Urine Nitrite Negative Urine Bilirubin Negative Urine Urobilinogen Normal Ur Leukocyte Esterase Negative Urine RBC 0 SEEN Urine WBC 0 SEEN Ur Squamous Epith Cells 0-5 SEEN Amorphous Sediment 2+ Urine Bacteria 4+ Fine Granular Casts 5-10 SEEN Coarse Granular Casts 0-5 SEEN Urine Mucus 0 SEEN MRSA (PCR) POC Glucose 05/23/18 05/23/18 05/23/18 17:41 17:45 19:20 WBC RBC Hgb Hct MCV MCH MCHC RDW RDW Differential Plt Count MPV Immature Gran % (Auto) Neut % (Auto) Lymph % (Auto) Keith % (Auto) Eos % (Auto) Baso % (Auto) Absolute Neuts (auto) Absolute Lymphs (auto) Total Counted Differential Comment PT INR APTT Specimen Type ART Sample Site pH 7.42 Bicarbonate Actual 34.0 H POC Total CO2 36 Base Excess 9 H O2 Saturation 98 O2 % 50 ABG pCO2 52.6 H ABG pO2 101 H Bk Test Respiration Rate 12 O2 Delivery Device Bi / C PAP Vent Mode Tidal Volume POC PEEP EPAP 6 IPAP 12 Blood Gas Notified Whom [facility] Blood Gas Notified Time 1545 Sodium Potassium Chloride Carbon Dioxide Anion Gap BUN Creatinine Estim Creat Clear Calc Est GFR (MDRD) Af Amer Est GFR (MDRD) Non-Af BUN/Creatinine Ratio Glucose Hemoglobin A1c Lactic Acid 1.1 Calcium Phosphorus Magnesium Total Bilirubin AST ALT Alkaline Phosphatase Total Creatine Kinase Troponin I 0.050 H B-Natriuretic Peptide Total Protein Albumin Globulin Albumin/Globulin Ratio Triglycerides Urine Color Urine Clarity Urine pH Ur Specific [place] Urine Protein Urine Glucose (UA) Urine Ketones Urine Occult Blood Urine Nitrite Urine Bilirubin Urine Urobilinogen Ur Leukocyte Esterase Urine RBC Urine WBC Ur Squamous Epith Cells Amorphous Sediment Urine Bacteria Fine Granular Casts Coarse Granular Casts Urine Mucus MRSA (PCR) POC Glucose 05/23/18 05/23/18 05/24/18 22:41 22:43 00:10 WBC RBC Hgb Hct MCV MCH MCHC RDW RDW Differential Plt Count MPV Immature Gran % (Auto) Neut % (Auto) Lymph % (Auto) Keith % (Auto) Eos % (Auto) Baso % (Auto) Absolute Neuts (auto) Absolute Lymphs (auto) Total Counted Differential Comment PT INR APTT Specimen Type Sample Site pH Bicarbonate Actual POC Total CO2 Base Excess O2 Saturation O2 % ABG pCO2 ABG pO2 Bk Test Respiration Rate O2 Delivery Device Vent Mode Tidal Volume POC PEEP EPAP IPAP Blood Gas Notified Whom Blood Gas Notified Time Sodium Potassium Chloride Carbon Dioxide Anion Gap BUN Creatinine Estim Creat Clear Calc Est GFR (MDRD) Af Amer Est GFR (MDRD) Non-Af BUN/Creatinine Ratio Glucose Hemoglobin A1c Lactic Acid Calcium Phosphorus Magnesium Total Bilirubin AST ALT Alkaline Phosphatase Total Creatine Kinase Troponin I 0.034 B-Natriuretic Peptide Total Protein Albumin Globulin Albumin/Globulin Ratio Triglycerides Urine Color Urine Clarity Urine pH Ur Specific [place] Urine Protein Urine Glucose (UA) Urine Ketones Urine Occult Blood Urine Nitrite Urine Bilirubin Urine Urobilinogen Ur Leukocyte Esterase Urine RBC Urine WBC Ur Squamous Epith Cells Amorphous Sediment Urine Bacteria Fine Granular Casts Coarse Granular Casts Urine Mucus MRSA (PCR) POC Glucose 478 H* 461 H* 05/24/18 05/24/18 05/24/18 02:32 05:25 05:25 WBC 5.9 RBC 5.12 Hgb 13.5 Hct 43.1 MCV 84.2 MCH 26.4 L MCHC 31.3 L RDW 13.9 RDW Differential 43.4 Plt Count 138 L MPV 10.2 Immature Gran % (Auto) 0.200 Neut % (Auto) 72.5 H Lymph % (Auto) 18.0 L Keith % (Auto) 9.0 Eos % (Auto) 0.0 Baso % (Auto) 0.3 Absolute Neuts (auto) 4.3 Absolute Lymphs (auto) 1.06 Total Counted Not Reportable Differential Comment PT INR APTT Specimen Type Sample Site pH Bicarbonate Actual POC Total CO2 Base Excess O2 Saturation O2 % ABG pCO2 ABG pO2 Bk Test Respiration Rate O2 Delivery Device Vent Mode Tidal Volume POC PEEP EPAP IPAP Blood Gas Notified Whom Blood Gas Notified Time Sodium 137 Potassium 4.1 Chloride 94 L Carbon Dioxide 34.0 H Anion Gap 9 BUN 14 Creatinine 1.28 H Estim Creat Clear Calc 45.40 Est GFR (MDRD) Af Amer 55 L Est GFR (MDRD) Non-Af 46 L BUN/Creatinine Ratio 10.9 Glucose 374 H Hemoglobin A1c Lactic Acid Calcium 7.6 L Phosphorus Magnesium Total Bilirubin AST ALT Alkaline Phosphatase Total Creatine Kinase Troponin I 0.036 B-Natriuretic Peptide Total Protein Albumin Globulin Albumin/Globulin Ratio Triglycerides Urine Color Urine Clarity Urine pH Ur Specific [place] Urine Protein Urine Glucose (UA) Urine Ketones Urine Occult Blood Urine Nitrite Urine Bilirubin Urine Urobilinogen Ur Leukocyte Esterase Urine RBC Urine WBC Ur Squamous Epith Cells Amorphous Sediment Urine Bacteria Fine Granular Casts Coarse Granular Casts Urine Mucus MRSA (PCR) POC Glucose 05/24/18 05/24/18 05/24/18 05:25 05:25 05:25 WBC RBC Hgb Hct MCV MCH MCHC RDW RDW Differential Plt Count MPV Immature Gran % (Auto) Neut % (Auto) Lymph % (Auto) Keith % (Auto) Eos % (Auto) Baso % (Auto) Absolute Neuts (auto) Absolute Lymphs (auto) Total Counted Differential Comment PT INR APTT Specimen Type Sample Site pH Bicarbonate Actual POC Total CO2 Base Excess O2 Saturation O2 % ABG pCO2 ABG pO2 Bk Test Respiration Rate O2 Delivery Device Vent Mode Tidal Volume POC PEEP EPAP IPAP Blood Gas Notified Whom Blood Gas Notified Time Sodium Potassium Chloride Carbon Dioxide Anion Gap BUN Creatinine Estim Creat Clear Calc Est GFR (MDRD) Af Amer Est GFR (MDRD) Non-Af BUN/Creatinine Ratio Glucose Hemoglobin A1c 12.5 H Lactic Acid Calcium Phosphorus Magnesium Total Bilirubin AST ALT Alkaline Phosphatase Total Creatine Kinase 183 Troponin I 0.023 B-Natriuretic Peptide Total Protein Albumin Globulin Albumin/Globulin Ratio Triglycerides 139 Urine Color Urine Clarity Urine pH Ur Specific [place] Urine Protein Urine Glucose (UA) Urine Ketones Urine Occult Blood Urine Nitrite Urine Bilirubin Urine Urobilinogen Ur Leukocyte Esterase Urine RBC Urine WBC Ur Squamous Epith Cells Amorphous Sediment Urine Bacteria Fine Granular Casts Coarse Granular Casts Urine Mucus MRSA (PCR) POC Glucose 05/24/18 05/24/18 05/24/18 06:31 11:01 12:50 WBC RBC Hgb Hct MCV MCH MCHC RDW RDW Differential Plt Count MPV Immature Gran % (Auto) Neut % (Auto) Lymph % (Auto) Keith % (Auto) Eos % (Auto) Baso % (Auto) Absolute Neuts (auto) Absolute Lymphs (auto) Total Counted Differential Comment PT INR APTT Specimen Type Sample Site pH Bicarbonate Actual POC Total CO2 Base Excess O2 Saturation O2 % ABG pCO2 ABG pO2 Bk Test Respiration Rate O2 Delivery Device Vent Mode Tidal Volume POC PEEP EPAP IPAP Blood Gas Notified Whom Blood Gas Notified Time Sodium Potassium Chloride Carbon Dioxide Anion Gap BUN Creatinine Estim Creat Clear Calc Est GFR (MDRD) Af Amer Est GFR (MDRD) Non-Af BUN/Creatinine Ratio Glucose Hemoglobin A1c Lactic Acid Calcium Phosphorus Magnesium Total Bilirubin AST ALT Alkaline Phosphatase Total Creatine Kinase Troponin I B-Natriuretic Peptide Total Protein Albumin Globulin Albumin/Globulin Ratio Triglycerides Urine Color Urine Clarity Urine pH Ur Specific [place] Urine Protein Urine Glucose (UA) Urine Ketones Urine Occult Blood Urine Nitrite Urine Bilirubin Urine Urobilinogen Ur Leukocyte Esterase Urine RBC Urine WBC Ur Squamous Epith Cells Amorphous Sediment Urine Bacteria Fine Granular Casts Coarse Granular Casts Urine Mucus MRSA (PCR) Negative POC Glucose 373 H 359 H 05/24/18 05/24/18 05/24/18 14:05 16:25 17:29 WBC RBC Hgb Hct MCV MCH MCHC RDW RDW Differential Plt Count MPV Immature Gran % (Auto) Neut % (Auto) Lymph % (Auto) Keith % (Auto) Eos % (Auto) Baso % (Auto) Absolute Neuts (auto) Absolute Lymphs (auto) Total Counted Differential Comment PT INR APTT Specimen Type ART ART Sample Site R Radial R Radial pH 7.39 7.45 Bicarbonate Actual 38.9 H 37.4 H POC Total CO2 41 39 Base Excess 14 H 13 H O2 Saturation 83 L 95 O2 % 70 70 ABG pCO2 64.9 H 53.4 H ABG pO2 50 L 74 L Bk Test POS POS Respiration Rate 14 O2 Delivery Device Bi / C PAP Vent Vent Mode A-C Tidal Volume 400 POC PEEP 10 EPAP 8 IPAP 14 Blood Gas Notified Whom ICU MD ICU MD Blood Gas Notified Time 1400 1620 Sodium Potassium Chloride Carbon Dioxide Anion Gap BUN Creatinine Estim Creat Clear Calc Est GFR (MDRD) Af Amer Est GFR (MDRD) Non-Af BUN/Creatinine Ratio Glucose Hemoglobin A1c Lactic Acid Calcium Phosphorus Magnesium Total Bilirubin AST ALT Alkaline Phosphatase Total Creatine Kinase Troponin I B-Natriuretic Peptide Total Protein Albumin Globulin Albumin/Globulin Ratio Triglycerides Urine Color Urine Clarity Urine pH Ur Specific [place] Urine Protein Urine Glucose (UA) Urine Ketones Urine Occult Blood Urine Nitrite Urine Bilirubin Urine Urobilinogen Ur Leukocyte Esterase Urine RBC Urine WBC Ur Squamous Epith Cells Amorphous Sediment Urine Bacteria Fine Granular Casts Coarse Granular Casts Urine Mucus MRSA (PCR) POC Glucose 156 H 05/24/18 05/25/18 05/25/18 23:48 04:30 04:30 WBC 5.6 RBC 5.08 Hgb 13.2 Hct 42.1 MCV 82.9 MCH 26.0 L MCHC 31.4 L RDW 14.2 RDW Differential 42.7 Plt Count 151 MPV 10.6 Immature Gran % (Auto) 0.400 Neut % (Auto) 73.9 H Lymph % (Auto) 20.0 Keith % (Auto) 4.5 Eos % (Auto) 0.0 Baso % (Auto) 1.2 H Absolute Neuts (auto) 4.2 Absolute Lymphs (auto) 1.12 Total Counted Pending Differential Comment PT INR APTT Specimen Type Sample Site pH Bicarbonate Actual POC Total CO2 Base Excess O2 Saturation O2 % ABG pCO2 ABG pO2 Bk Test Respiration Rate O2 Delivery Device Vent Mode Tidal Volume POC PEEP EPAP IPAP Blood Gas Notified Whom Blood Gas Notified Time Sodium 140 Potassium 3.8 Chloride 96 L Carbon Dioxide 35.0 H Anion Gap 9 BUN 22 H Creatinine 2.78 H Estim Creat Clear Calc 20.90 Est GFR (MDRD) Af Amer 23 L Est GFR (MDRD) Non-Af 19 L BUN/Creatinine Ratio 7.9 L Glucose 250 H Hemoglobin A1c Lactic Acid Calcium 7.5 L Phosphorus 4.3 Magnesium 2.1 Total Bilirubin AST ALT Alkaline Phosphatase Total Creatine Kinase Troponin I B-Natriuretic Peptide Total Protein Albumin Globulin Albumin/Globulin Ratio Triglycerides Urine Color Urine Clarity Urine pH Ur Specific [place] Urine Protein Urine Glucose (UA) Urine Ketones Urine Occult Blood Urine Nitrite Urine Bilirubin Urine Urobilinogen Ur Leukocyte Esterase Urine RBC Urine WBC Ur Squamous Epith Cells Amorphous Sediment Urine Bacteria Fine Granular Casts Coarse Granular Casts Urine Mucus MRSA (PCR) POC Glucose 241 H 05/25/18 05:50 WBC RBC Hgb Hct MCV MCH MCHC RDW RDW Differential Plt Count MPV Immature Gran % (Auto) Neut % (Auto) Lymph % (Auto) Keith % (Auto) Eos % (Auto) Baso % (Auto) Absolute Neuts (auto) Absolute Lymphs (auto) Total Counted Differential Comment PT INR APTT Specimen Type Sample Site pH Bicarbonate Actual POC Total CO2 Base Excess O2 Saturation O2 % ABG pCO2 ABG pO2 Bk Test Respiration Rate O2 Delivery Device Vent Mode Tidal Volume POC PEEP EPAP IPAP Blood Gas Notified Whom Blood Gas Notified Time Sodium Potassium Chloride Carbon Dioxide Anion Gap BUN Creatinine Estim Creat Clear Calc Est GFR (MDRD) Af Amer Est GFR (MDRD) Non-Af BUN/Creatinine Ratio Glucose Hemoglobin A1c Lactic Acid Calcium Phosphorus Magnesium Total Bilirubin AST ALT Alkaline Phosphatase Total Creatine Kinase Troponin I B-Natriuretic Peptide Total Protein Albumin Globulin Albumin/Globulin Ratio Triglycerides Urine Color Urine Clarity Urine pH Ur Specific [place] Urine Protein Urine Glucose (UA) Urine Ketones Urine Occult Blood Urine Nitrite Urine Bilirubin Urine Urobilinogen Ur Leukocyte Esterase Urine RBC Urine WBC Ur Squamous Epith Cells Amorphous Sediment Urine Bacteria Fine Granular Casts Coarse Granular Casts Urine Mucus MRSA (PCR) POC Glucose 219 H Microbiology 05/23/18 18:52 Mucosa - Nose Respiratory Panel (PCR) - Final 05/23/18 15:35 Urine Catheter - Tovar Urine Culture - Preliminary GNR lactose anesthesiologist assistant certified 05/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 Electronically Signed: Royer Rowe MD at 15:56 EST , Service support , Chest X-Ray 05/24/18 10:30 IMPRESSION: Findings consistent with CHF. This appears worsening with areas of consolidation at the left lung base. Electronically Signed: Michael Braxton DO at 17:08 EST Tel [phone], Service support , KUB X-Ray 05/24/18 14:46 IMPRESSION: The tip of the orogastric tube is in the body of the stomach. Electronically Signed: Royer Rowe MD at 15:43 EST , Service support , Chest X-Ray 05/24/18 15:10 IMPRESSION: The tip of the endotracheal tube is at 6.3 cm proximal to the ehsan. Electronically Signed: Royer Rowe MD at 15:44 EST , Service support , Medical Necessity - Tobacco Use Smoking Status: Never smoker Tobacco Use: Non-smoker Assessment/Plan All Active Problems Chest pain (Acute) CHF (congestive heart failure) (Acute) Pulmonary HTN (Acute) Acute respiratory failure with hypoxia (Acute) PNA (pneumonia) (Acute) Acute kidney injury (Acute) S/P laparoscopic cholecystectomy (Acute) Gall bladder disease (Acute) RECOMMENDATIONS: 1. Continue antibiotics as ordered. 2. Maintain current FiO2 and PEEP requirements. Recommend preferentially weaning FiO2 first. 3. Obtain CT chest. 4. Continue current sedation regimen. 5. Start tube feeds today. 6. Continue subcutaneous heparin and Pepcid for prophylaxis. 7. Await results of echocardiogram. IMPRESSIONS: 1. Acute combined respiratory failure secondary to severe community-acquired pneumonia The patient has required ever escalating amounts of respiratory support since her admission to the hospital. She was transferred from the progressive care unit to the intensive care unit on May 24. Following arrival to the ICU, the patient continued to decompensate clinically. Therefore, she was electively intubated on May 24. Her antibiotics were subsequently broadened to include Zosyn. The patient continues to have a high oxygen requirement. Given the limited detail of plain film x-rays, given the patient's body habitus, will obtain a CT chest this morning. Echocardiogram is currently pending. Infectious workup is also underway. I strongly suspect that in addition to obstructive sleep apnea, the patient likely has a component of alveolar hypoventilation secondary to her severe obesity. 2. Acute kidney injury Potentially prerenal in etiology, as the patient was initially diuresed on admission to the hospital and also developed a component of hypotension on arrival to the ICU. Nephrology has currently been consulted to evaluate patient. 3. Indeterminate troponin Echocardiogram is currently pending. 4. Morbid obesity/diabetes mellitus/anxiety/depression/PTSD Complicates care, management, recovery and prognosis. Continue Accu-Cheks and sliding scale insulin coverage. Tube feeds will be initiated today. TIME: 40 minutes of critical care time, independent of procedures, was spent addressing the patient's acute combined respiratory failure, severe community-acquired pneumonia, acute kidney injury, indeterminate troponin, morbid obesity, review of all data and collaboration with the care team. ([id number]) Code Visit [id number]: [id number] Critical care first hour
[2018-05-25] MEDS: CHLORHEXIDINE GLUC 2% CLOTH 1 EACH TOWELETTE TOPICAL (07:00)
--- NOTE | 2018-05-25 07:00 | PN_ITS ---
Subjective: The patient was seen and examined at the bedside this morning. Events from the last 24 hours have been reviewed. The patient was persistently febrile overnight with a T-max of 38.8 ?C. The patient did become transiently hypotensive overnight, which was felt to be a consequence of her sedation. Her hemodynamics improved after her sedation was weaned. The patient is requiring a significant amount of ventilator support with an FiO2 of 90% and PEEP of 10. Creatinine has worsened this morning to 2.78. Her urine output has also been on the low side. The patient is currently sedated on propofol at 5 mg and fentanyl at 150 mcg. Echocardiogram was postponed until today, as the patient was being intubated yesterday. Objective: The patient's most recent lab work, culture data and imaging studies have all been personally reviewed. Blood cultures are currently pending. Preliminary urine culture revealed a gram-negative severo. Strep and urine Legionella antigens were both negative. Respiratory viral panel was negative. Sputum culture is currently pending. General: - - The patient is currently intubated, sedated and mechanically ventilated. No ventilator dyssynchrony noted. HEENT: Atraumatic, PERRLA, Normocephalic Oral: No Gingival or Mucosal Lesions/ Ulcerations, - - Endotracheal and OG tubes in place Neck: Supple, No Nodes, Trachea Midline Lungs: No rhonchi, No wheeze, Diminished, Rales Cardiovascular: Regular rate, Regular Rhythm, Normal S1, Normal S2, No murmurs Abdomen: Bowel Sounds Present, Soft, Non Tender, Obese Extremities: No clubbing, No cyanosis, Edema Skin: - - No significant change from previous. Musculoskeletal: No Muscle Wasting Lymphatic: No Cervical, Supraclavicular, or Inguinal Adenopathy Neurological: - - No focal neurological deficits. Currently sedated with a RASS of -1. Will open eyes to verbal stimulation only. Vital Signs Temp Pulse Resp BP Pulse Ox 37.9 C H 61 14 98/62 94 05/25/18 06:00 05/25/18 06:00 05/25/18 06:00 05/25/18 06:00 05/25/18 06:00 Oxygen Flow Rate (L/min) 11 Oxygen Delivery Method Mechanical Ventilator Weight: 305 lb 1.916 oz Body Mass Index (BMI) 49.7 Finger Stick Blood Glucose 283 Intake and Output for Last 24 Hours 05/23/18 05/24/18 05/25/18 23:59 23:59 23:59 Intake Total 2007 492 / 492 Output Total 1900 / 1900 125 / 125 Balance 108 / 108 367 / 367 Labs (Last 48 Hours) 05/23/18 05/23/18 05/23/18 15:10 15:10 15:10 WBC 5.1 RBC 5.03 Hgb 13.2 Hct 41.5 MCV 82.5 MCH 26.2 L MCHC 31.8 L RDW 13.7 RDW Differential 40.4 Plt Count 165 MPV 11.0 Immature Gran % (Auto) 0.200 Neut % (Auto) 79.2 H Lymph % (Auto) 9.7 L Vance % (Auto) 10.7 H Eos % (Auto) 0.0 Baso % (Auto) 0.2 Absolute Neuts (auto) 4.0 Absolute Lymphs (auto) 0.49 L Total Counted Not Reportable Differential Comment SCANNED PT 12.9 INR 1.0 APTT 34.9 Specimen Type Sample Site pH Bicarbonate Actual POC Total CO2 Base Excess O2 Saturation O2 % ABG pCO2 ABG pO2 Bk Test Respiration Rate O2 Delivery Device Vent Mode Tidal Volume POC PEEP EPAP IPAP Blood Gas Notified Whom Blood Gas Notified Time Sodium 137 Potassium 3.5 Chloride 95 L Carbon Dioxide 35.0 H Anion Gap 7 BUN 11 Creatinine 1.07 H Estim Creat Clear Calc 56.41 Est GFR (MDRD) Af Amer 68 Est GFR (MDRD) Non-Af 56 L BUN/Creatinine Ratio 10.3 Glucose 313 H Hemoglobin A1c Lactic Acid Calcium 7.2 L Phosphorus Magnesium Total Bilirubin 0.20 AST 30 ALT 22 Alkaline Phosphatase 84 Total Creatine Kinase Troponin I B-Natriuretic Peptide Total Protein 6.3 L Albumin 2.5 L Globulin 3.8 Albumin/Globulin Ratio 0.7 L Triglycerides Urine Color Urine Clarity Urine pH Ur Specific Mccarley Urine Protein Urine Glucose (UA) Urine Ketones Urine Occult Blood Urine Nitrite Urine Bilirubin Urine Urobilinogen Ur Leukocyte Esterase Urine RBC Urine WBC Ur Squamous Epith Cells Amorphous Sediment Urine Bacteria Fine Granular Casts Coarse Granular Casts Urine Mucus MRSA (PCR) POC Glucose 05/23/18 05/23/18 05/23/18 15:10 15:10 15:35 WBC RBC Hgb Hct MCV MCH MCHC RDW RDW Differential Plt Count MPV Immature Gran % (Auto) Neut % (Auto) Lymph % (Auto) Vance % (Auto) Eos % (Auto) Baso % (Auto) Absolute Neuts (auto) Absolute Lymphs (auto) Total Counted Differential Comment PT INR APTT Specimen Type Sample Site pH Bicarbonate Actual POC Total CO2 Base Excess O2 Saturation O2 % ABG pCO2 ABG pO2 Bk Test Respiration Rate O2 Delivery Device Vent Mode Tidal Volume POC PEEP EPAP IPAP Blood Gas Notified Whom Blood Gas Notified Time Sodium Potassium Chloride Carbon Dioxide Anion Gap BUN Creatinine Estim Creat Clear Calc Est GFR (MDRD) Af Amer Est GFR (MDRD) Non-Af BUN/Creatinine Ratio Glucose Hemoglobin A1c Lactic Acid 2.0 Calcium Phosphorus Magnesium Total Bilirubin AST ALT Alkaline Phosphatase Total Creatine Kinase Troponin I B-Natriuretic Peptide 24.7 Total Protein Albumin Globulin Albumin/Globulin Ratio Triglycerides Urine Color Yellow Urine Clarity Cloudy Urine pH 5.0 Ur Specific Mccarley 1.020 Urine Protein 100 H Urine Glucose (UA) 1000 H Urine Ketones 50 H Urine Occult Blood 50 H Urine Nitrite Negative Urine Bilirubin Negative Urine Urobilinogen Normal Ur Leukocyte Esterase Negative Urine RBC 0 SEEN Urine WBC 0 SEEN Ur Squamous Epith Cells 0-5 SEEN Amorphous Sediment 2+ Urine Bacteria 4+ Fine Granular Casts 5-10 SEEN Coarse Granular Casts 0-5 SEEN Urine Mucus 0 SEEN MRSA (PCR) POC Glucose 05/23/18 05/23/18 05/23/18 17:41 17:45 19:20 WBC RBC Hgb Hct MCV MCH MCHC RDW RDW Differential Plt Count MPV Immature Gran % (Auto) Neut % (Auto) Lymph % (Auto) Vance % (Auto) Eos % (Auto) Baso % (Auto) Absolute Neuts (auto) Absolute Lymphs (auto) Total Counted Differential Comment PT INR APTT Specimen Type ART Sample Site pH 7.42 Bicarbonate Actual 34.0 H POC Total CO2 36 Base Excess 9 H O2 Saturation 98 O2 % 50 ABG pCO2 52.6 H ABG pO2 101 H Bk Test Respiration Rate 12 O2 Delivery Device Bi / C PAP Vent Mode Tidal Volume POC PEEP EPAP 6 IPAP 12 Blood Gas Notified Whom [facility] Blood Gas Notified Time 1545 Sodium Potassium Chloride Carbon Dioxide Anion Gap BUN Creatinine Estim Creat Clear Calc Est GFR (MDRD) Af Amer Est GFR (MDRD) Non-Af BUN/Creatinine Ratio Glucose Hemoglobin A1c Lactic Acid 1.1 Calcium Phosphorus Magnesium Total Bilirubin AST ALT Alkaline Phosphatase Total Creatine Kinase Troponin I 0.050 H B-Natriuretic Peptide Total Protein Albumin Globulin Albumin/Globulin Ratio Triglycerides Urine Color Urine Clarity Urine pH Ur Specific Mccarley Urine Protein Urine Glucose (UA) Urine Ketones Urine Occult Blood Urine Nitrite Urine Bilirubin Urine Urobilinogen Ur Leukocyte Esterase Urine RBC Urine WBC Ur Squamous Epith Cells Amorphous Sediment Urine Bacteria Fine Granular Casts Coarse Granular Casts Urine Mucus MRSA (PCR) POC Glucose 05/23/18 05/23/18 05/24/18 22:41 22:43 00:10 WBC RBC Hgb Hct MCV MCH MCHC RDW RDW Differential Plt Count MPV Immature Gran % (Auto) Neut % (Auto) Lymph % (Auto) Vance % (Auto) Eos % (Auto) Baso % (Auto) Absolute Neuts (auto) Absolute Lymphs (auto) Total Counted Differential Comment PT INR APTT Specimen Type Sample Site pH Bicarbonate Actual POC Total CO2 Base Excess O2 Saturation O2 % ABG pCO2 ABG pO2 Bk Test Respiration Rate O2 Delivery Device Vent Mode Tidal Volume POC PEEP EPAP IPAP Blood Gas Notified Whom Blood Gas Notified Time Sodium Potassium Chloride Carbon Dioxide Anion Gap BUN Creatinine Estim Creat Clear Calc Est GFR (MDRD) Af Amer Est GFR (MDRD) Non-Af BUN/Creatinine Ratio Glucose Hemoglobin A1c Lactic Acid Calcium Phosphorus Magnesium Total Bilirubin AST ALT Alkaline Phosphatase Total Creatine Kinase Troponin I 0.034 B-Natriuretic Peptide Total Protein Albumin Globulin Albumin/Globulin Ratio Triglycerides Urine Color Urine Clarity Urine pH Ur Specific Mccarley Urine Protein Urine Glucose (UA) Urine Ketones Urine Occult Blood Urine Nitrite Urine Bilirubin Urine Urobilinogen Ur Leukocyte Esterase Urine RBC Urine WBC Ur Squamous Epith Cells Amorphous Sediment Urine Bacteria Fine Granular Casts Coarse Granular Casts Urine Mucus MRSA (PCR) POC Glucose 478 H* 461 H* 05/24/18 05/24/18 05/24/18 02:32 05:25 05:25 WBC 5.9 RBC 5.12 Hgb 13.5 Hct 43.1 MCV 84.2 MCH 26.4 L MCHC 31.3 L RDW 13.9 RDW Differential 43.4 Plt Count 138 L MPV 10.2 Immature Gran % (Auto) 0.200 Neut % (Auto) 72.5 H Lymph % (Auto) 18.0 L Vance % (Auto) 9.0 Eos % (Auto) 0.0 Baso % (Auto) 0.3 Absolute Neuts (auto) 4.3 Absolute Lymphs (auto) 1.06 Total Counted Not Reportable Differential Comment PT INR APTT Specimen Type Sample Site pH Bicarbonate Actual POC Total CO2 Base Excess O2 Saturation O2 % ABG pCO2 ABG pO2 Bk Test Respiration Rate O2 Delivery Device Vent Mode Tidal Volume POC PEEP EPAP IPAP Blood Gas Notified Whom Blood Gas Notified Time Sodium 137 Potassium 4.1 Chloride 94 L Carbon Dioxide 34.0 H Anion Gap 9 BUN 14 Creatinine 1.28 H Estim Creat Clear Calc 45.40 Est GFR (MDRD) Af Amer 55 L Est GFR (MDRD) Non-Af 46 L BUN/Creatinine Ratio 10.9 Glucose 374 H Hemoglobin A1c Lactic Acid Calcium 7.6 L Phosphorus Magnesium Total Bilirubin AST ALT Alkaline Phosphatase Total Creatine Kinase Troponin I 0.036 B-Natriuretic Peptide Total Protein Albumin Globulin Albumin/Globulin Ratio Triglycerides Urine Color Urine Clarity Urine pH Ur Specific Mccarley Urine Protein Urine Glucose (UA) Urine Ketones Urine Occult Blood Urine Nitrite Urine Bilirubin Urine Urobilinogen Ur Leukocyte Esterase Urine RBC Urine WBC Ur Squamous Epith Cells Amorphous Sediment Urine Bacteria Fine Granular Casts Coarse Granular Casts Urine Mucus MRSA (PCR) POC Glucose 05/24/18 05/24/18 05/24/18 05:25 05:25 05:25 WBC RBC Hgb Hct MCV MCH MCHC RDW RDW Differential Plt Count MPV Immature Gran % (Auto) Neut % (Auto) Lymph % (Auto) Vance % (Auto) Eos % (Auto) Baso % (Auto) Absolute Neuts (auto) Absolute Lymphs (auto) Total Counted Differential Comment PT INR APTT Specimen Type Sample Site pH Bicarbonate Actual POC Total CO2 Base Excess O2 Saturation O2 % ABG pCO2 ABG pO2 Bk Test Respiration Rate O2 Delivery Device Vent Mode Tidal Volume POC PEEP EPAP IPAP Blood Gas Notified Whom Blood Gas Notified Time Sodium Potassium Chloride Carbon Dioxide Anion Gap BUN Creatinine Estim Creat Clear Calc Est GFR (MDRD) Af Amer Est GFR (MDRD) Non-Af BUN/Creatinine Ratio Glucose Hemoglobin A1c 12.5 H Lactic Acid Calcium Phosphorus Magnesium Total Bilirubin AST ALT Alkaline Phosphatase Total Creatine Kinase 183 Troponin I 0.023 B-Natriuretic Peptide Total Protein Albumin Globulin Albumin/Globulin Ratio Triglycerides 139 Urine Color Urine Clarity Urine pH Ur Specific Mccarley Urine Protein Urine Glucose (UA) Urine Ketones Urine Occult Blood Urine Nitrite Urine Bilirubin Urine Urobilinogen Ur Leukocyte Esterase Urine RBC Urine WBC Ur Squamous Epith Cells Amorphous Sediment Urine Bacteria Fine Granular Casts Coarse Granular Casts Urine Mucus MRSA (PCR) POC Glucose 05/24/18 05/24/18 05/24/18 06:31 11:01 12:50 WBC RBC Hgb Hct MCV MCH MCHC RDW RDW Differential Plt Count MPV Immature Gran % (Auto) Neut % (Auto) Lymph % (Auto) Vance % (Auto) Eos % (Auto) Baso % (Auto) Absolute Neuts (auto) Absolute Lymphs (auto) Total Counted Differential Comment PT INR APTT Specimen Type Sample Site pH Bicarbonate Actual POC Total CO2 Base Excess O2 Saturation O2 % ABG pCO2 ABG pO2 Bk Test Respiration Rate O2 Delivery Device Vent Mode Tidal Volume POC PEEP EPAP IPAP Blood Gas Notified Whom Blood Gas Notified Time Sodium Potassium Chloride Carbon Dioxide Anion Gap BUN Creatinine Estim Creat Clear Calc Est GFR (MDRD) Af Amer Est GFR (MDRD) Non-Af BUN/Creatinine Ratio Glucose Hemoglobin A1c Lactic Acid Calcium Phosphorus Magnesium Total Bilirubin AST ALT Alkaline Phosphatase Total Creatine Kinase Troponin I B-Natriuretic Peptide Total Protein Albumin Globulin Albumin/Globulin Ratio Triglycerides Urine Color Urine Clarity Urine pH Ur Specific Mccarley Urine Protein Urine Glucose (UA) Urine Ketones Urine Occult Blood Urine Nitrite Urine Bilirubin Urine Urobilinogen Ur Leukocyte Esterase Urine RBC Urine WBC Ur Squamous Epith Cells Amorphous Sediment Urine Bacteria Fine Granular Casts Coarse Granular Casts Urine Mucus MRSA (PCR) Negative POC Glucose 373 H 359 H 05/24/18 05/24/18 05/24/18 14:05 16:25 17:29 WBC RBC Hgb Hct MCV MCH MCHC RDW RDW Differential Plt Count MPV Immature Gran % (Auto) Neut % (Auto) Lymph % (Auto) Vance % (Auto) Eos % (Auto) Baso % (Auto) Absolute Neuts (auto) Absolute Lymphs (auto) Total Counted Differential Comment PT INR APTT Specimen Type ART ART Sample Site R Radial R Radial pH 7.39 7.45 Bicarbonate Actual 38.9 H 37.4 H POC Total CO2 41 39 Base Excess 14 H 13 H O2 Saturation 83 L 95 O2 % 70 70 ABG pCO2 64.9 H 53.4 H ABG pO2 50 L 74 L Bk Test POS POS Respiration Rate 14 O2 Delivery Device Bi / C PAP Vent Vent Mode A-C Tidal Volume 400 POC PEEP 10 EPAP 8 IPAP 14 Blood Gas Notified Whom ICU MD ICU MD Blood Gas Notified Time 1400 1620 Sodium Potassium Chloride Carbon Dioxide Anion Gap BUN Creatinine Estim Creat Clear Calc Est GFR (MDRD) Af Amer Est GFR (MDRD) Non-Af BUN/Creatinine Ratio Glucose Hemoglobin A1c Lactic Acid Calcium Phosphorus Magnesium Total Bilirubin AST ALT Alkaline Phosphatase Total Creatine Kinase Troponin I B-Natriuretic Peptide Total Protein Albumin Globulin Albumin/Globulin Ratio Triglycerides Urine Color Urine Clarity Urine pH Ur Specific Mccarley Urine Protein Urine Glucose (UA) Urine Ketones Urine Occult Blood Urine Nitrite Urine Bilirubin Urine Urobilinogen Ur Leukocyte Esterase Urine RBC Urine WBC Ur Squamous Epith Cells Amorphous Sediment Urine Bacteria Fine Granular Casts Coarse Granular Casts Urine Mucus MRSA (PCR) POC Glucose 156 H 05/24/18 05/25/18 05/25/18 23:48 04:30 04:30 WBC 5.6 RBC 5.08 Hgb 13.2 Hct 42.1 MCV 82.9 MCH 26.0 L MCHC 31.4 L RDW 14.2 RDW Differential 42.7 Plt Count 151 MPV 10.6 Immature Gran % (Auto) 0.400 Neut % (Auto) 73.9 H Lymph % (Auto) 20.0 Vance % (Auto) 4.5 Eos % (Auto) 0.0 Baso % (Auto) 1.2 H Absolute Neuts (auto) 4.2 Absolute Lymphs (auto) 1.12 Total Counted Pending Differential Comment PT INR APTT Specimen Type Sample Site pH Bicarbonate Actual POC Total CO2 Base Excess O2 Saturation O2 % ABG pCO2 ABG pO2 Bk Test Respiration Rate O2 Delivery Device Vent Mode Tidal Volume POC PEEP EPAP IPAP Blood Gas Notified Whom Blood Gas Notified Time Sodium 140 Potassium 3.8 Chloride 96 L Carbon Dioxide 35.0 H Anion Gap 9 BUN 22 H Creatinine 2.78 H Estim Creat Clear Calc 20.90 Est GFR (MDRD) Af Amer 23 L Est GFR (MDRD) Non-Af 19 L BUN/Creatinine Ratio 7.9 L Glucose 250 H Hemoglobin A1c Lactic Acid Calcium 7.5 L Phosphorus 4.3 Magnesium 2.1 Total Bilirubin AST ALT Alkaline Phosphatase Total Creatine Kinase Troponin I B-Natriuretic Peptide Total Protein Albumin Globulin Albumin/Globulin Ratio Triglycerides Urine Color Urine Clarity Urine pH Ur Specific Mccarley Urine Protein Urine Glucose (UA) Urine Ketones Urine Occult Blood Urine Nitrite Urine Bilirubin Urine Urobilinogen Ur Leukocyte Esterase Urine RBC Urine WBC Ur Squamous Epith Cells Amorphous Sediment Urine Bacteria Fine Granular Casts Coarse Granular Casts Urine Mucus MRSA (PCR) POC Glucose 241 H 05/25/18 05:50 WBC RBC Hgb Hct MCV MCH MCHC RDW RDW Differential Plt Count MPV Immature Gran % (Auto) Neut % (Auto) Lymph % (Auto) Vance % (Auto) Eos % (Auto) Baso % (Auto) Absolute Neuts (auto) Absolute Lymphs (auto) Total Counted Differential Comment PT INR APTT Specimen Type Sample Site pH Bicarbonate Actual POC Total CO2 Base Excess O2 Saturation O2 % ABG pCO2 ABG pO2 Kb Test Respiration Rate O2 Delivery Device Vent Mode Tidal Volume POC PEEP EPAP IPAP Blood Gas Notified Whom Blood Gas Notified Time Sodium Potassium Chloride Carbon Dioxide Anion Gap BUN Creatinine Estim Creat Clear Calc Est GFR (MDRD) Af Amer Est GFR (MDRD) Non-Af BUN/Creatinine Ratio Glucose Hemoglobin A1c Lactic Acid Calcium Phosphorus Magnesium Total Bilirubin AST ALT Alkaline Phosphatase Total Creatine Kinase Troponin I B-Natriuretic Peptide Total Protein Albumin Globulin Albumin/Globulin Ratio Triglycerides Urine Color Urine Clarity Urine pH Ur Specific Mccarley Urine Protein Urine Glucose (UA) Urine Ketones Urine Occult Blood Urine Nitrite Urine Bilirubin Urine Urobilinogen Ur Leukocyte Esterase Urine RBC Urine WBC Ur Squamous Epith Cells Amorphous Sediment Urine Bacteria Fine Granular Casts Coarse Granular Casts Urine Mucus MRSA (PCR) POC Glucose 219 H Microbiology 05/23/18 18:52 Mucosa - Nose Respiratory Panel (PCR) - Final 05/23/18 15:35 Urine Catheter - Tovar Urine Culture - 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 Electronically Signed: Royer Rowe MD at 15:56 EST , Service support , Chest X-Ray 05/24/18 10:30 IMPRESSION: Findings consistent with CHF. This appears worsening with areas of consolidation at the left lung base. Electronically Signed: Michael Braxton DO at 17:08 EST Tel [phone], Service support , KUB X-Ray 05/24/18 14:46 IMPRESSION: The tip of the orogastric tube is in the body of the stomach. Electronically Signed: Royer Rowe MD at 15:43 EST , Service support , Chest X-Ray 05/24/18 15:10 IMPRESSION: The tip of the endotracheal tube is at 6.3 cm proximal to the ehsan. Electronically Signed: Royer Rowe MD at 15:44 EST , Service support , Medical Necessity - Tobacco Use Smoking Status: Never smoker Tobacco Use: Non-smoker Assessment/Plan All Active Problems Chest pain (Acute) CHF (congestive heart failure) (Acute) Pulmonary HTN (Acute) Acute respiratory failure with hypoxia (Acute) PNA (pneumonia) (Acute) Acute kidney injury (Acute) S/P laparoscopic cholecystectomy (Acute) Gall bladder disease (Acute) RECOMMENDATIONS: 1. Continue antibiotics as ordered. 2. Maintain current FiO2 and PEEP requirements. Recommend preferentially weaning FiO2 first. 3. Obtain CT chest. 4. Continue current sedation regimen. 5. Start tube feeds today. 6. Continue subcutaneous heparin and Pepcid for prophylaxis. 7. Await results of echocardiogram. IMPRESSIONS: 1. Acute combined respiratory failure secondary to severe community-acquired pneumonia The patient has required ever escalating amounts of respiratory support since her admission to the hospital. She was transferred from the progressive care unit to the intensive care unit on May 24. Following arrival to the ICU, the patient continued to decompensate clinically. Therefore, she was electively intubated on May 24. Her antibiotics were subsequently broadened to include Zosyn. The patient continues to have a high oxygen requirement. Given the limited detail of plain film x-rays, given the patient's body habitus, will obtain a CT chest this morning. Echocardiogram is currently pending. Infecti ous workup is also underway. I strongly suspect that in addition to obstructive sleep apnea, the patient likely has a component of alveolar hypoventilation secondary to her severe obesity. 2. Acute kidney injury Potentially prerenal in etiology, as the patient was initially diuresed on admission to the hospital and also developed a component of hypotension on arrival to the ICU. Nephrology has currently been consulted to evaluate patient. 3. Indeterminate troponin Echocardiogram is currently pending. 4. Morbid obesity/diabetes mellitus/anxiety/depression/PTSD Complicates care, management, recovery and prognosis. Continue Accu-Cheks and sliding scale insulin coverage. Tube feeds will be initiated today. TIME: 40 minutes of critical care time, independent of procedures, was spent addressing the patient's acute combined respiratory failure, severe community- acquired pneumonia, acute kidney injury, indeterminate troponin, morbid obesity, review of all data and collaboration with the care team. ([id number]) Code Visit [id number]: [id number] Critical care first hour
--- NOTE | 2018-05-25 07:33 | PCM.PROGNOTE ---
Patient Problems: Active and Suspected Problems Chest pain (Acute) CHF (congestive heart failure) (Acute) Pulmonary HTN (Acute) Acute respiratory failure with hypoxia (Acute) PNA (pneumonia) (Acute) Subjective: All events of the past 24 hours have been reviewed. Antibiotic Day #3-currently vancomycin and Zosyn Ventilator Day #2 TMAX: 102 ?F Vital signs: Blood pressure has ranged from 92/66 to 115/40 in the past 12 hours. She is on a fentanyl infusion for sedation. Heart rate is within normal limits. She is currently 94% saturated on an FiO2 of 90%. She is not overbreathing the ventilator. Fluid balance: Fluid balance on 05/24/2018 was 108 cc and fluid balance overnight is +367 cc with 125 cc of urine overnight. Urine output: 125 cc overnight Weight: 305 pounds and 1.9 ounces All radiologic testing was reviewed: Portable chest x-ray today shows diffuse infiltrates throughout the right lung and in the left base. There are Now suspected bilateral pleural effusions. All labs were personally reviewed: White blood cell count is 5.6 with 74% neutrophils. Hemoglobin is 13.2 and platelets are normal at 151,000. Serum bicarb is increased at 35 and the BUN is 22 with a creatinine of 2.78, up from 1.07 on 05/23/2018. Phosphorus and magnesium are within normal limits. Blood sugars have improved and the current blood sugar is 219. Microbiology: Urine is growing a gram-negative severo lactose broadloom weaver greater than 100,000 colonies but, there were no WBC's in the urine. Legionella and streptococcal antigens in the urine were negative and the respiratory panel was negative as well. Sputum culture and Gram stain are currently pending. Telemetry: ECHO: Ordered EKG: Secretions for ETT: BM Tolerating TF without residuals Subjective: Objective: General: Sedated with fentanyl and on the ventilator. HEENT: pupils are small and reactive, EOMI, Atraumatic, normocephalic, no scleral icterus, no carotid bruits, no JVD Lungs: crackles anteriorly.....decreased on the R today but increased on the left, no wheezing, symmetric chest expansion, no secretions from the ETT Heart: RRR, no MM, no gallop, no rub, normal S1, normal S2, very distant heart sounds due to body habitus Abdomen: Soft, nondistended, bowel sounds present, no guarding with palpation, no masses, no hepatosplenomegaly, obese Extremities: Edema of the feet, no clubbing, no cyanosis, peripheral pulses normal Neuro: Cranial nerves II through XII grossly intact, Neuro grossly intact, no focal neurologic deficits Skin: Warm and dry, no wounds, no rashes, no jaundice, some excoriation in the skin folds Psych: can not evaluate due to intubation, not responding to verbal commands......when she did open her eyes she did not make eye contact - Physical Exam Vital Signs Temp Pulse Resp BP Pulse Ox 100.3 F H 60 14 98/62 94 05/25/18 06:00 05/25/18 07:06 05/25/18 07:06 05/25/18 06:00 05/25/18 07:06 Oxygen Flow Rate (L/min) 11 Oxygen Delivery Method Mechanical Ventilator Weight: 305 lb 1.916 oz Body Mass Index (BMI) 49.7 Finger Stick Blood Glucose 283 Intake and Output for Last 24 Hours 05/23/18 05/24/18 05/25/18 23:59 23:59 23:59 Intake Total 2007 492 / 492 Output Total 1900 / 1900 125 / 125 Balance 108 / 108 367 / 367 Microbiology Past 72 Hours 05/23/18 18:52 Respiratory Panel (PCR) - Final Mucosa - Nose 05/23/18 15:35 Urine Culture - Preliminary Urine Catheter - Tovar GNR lactose broadloom weaver 05/23/18 18:30 Legionella Antigen - Final Urine Catheter - Tovar 05/23/18 18:30 Streptococcus pneumoniae Antigen (M - Final Urine Catheter - Tovar Laboratory Tests Past 24 Hrs 05/24/18 05/24/18 05/24/18 05:25 05:25 12:50 WBC RBC Hgb Hct MCV MCH MCHC RDW RDW Differential Plt Count MPV Immature Gran % (Auto) Neut % (Auto) Lymph % (Auto) [place] % (Auto) Eos % (Auto) Baso % (Auto) Absolute Neuts (auto) Absolute Lymphs (auto) Total Counted Specimen Type Sample Site pH Bicarbonate Actual POC Total CO2 Base Excess O2 Saturation O2 % ABG pCO2 ABG pO2 Bk Test Respiration Rate O2 Delivery Device Vent Mode Tidal Volume POC PEEP EPAP IPAP Blood Gas Notified Whom Blood Gas Notified Time Sodium Potassium Chloride Carbon Dioxide Anion Gap BUN Creatinine Estim Creat Clear Calc Est GFR (MDRD) Af Amer Est GFR (MDRD) Non-Af BUN/Creatinine Ratio Glucose Hemoglobin A1c 12.5 H Calcium Phosphorus Magnesium Total Creatine Kinase 183 Triglycerides 139 MRSA (PCR) Negative 05/24/18 05/24/18 05/25/18 14:05 16:25 04:30 WBC 5.6 RBC 5.08 Hgb 13.2 Hct 42.1 MCV 82.9 MCH 26.0 L MCHC 31.4 L RDW 14.2 RDW Differential 42.7 Plt Count 151 MPV 10.6 Immature Gran % (Auto) 0.400 Neut % (Auto) 73.9 H Lymph % (Auto) 20.0 Tate % (Auto) 4.5 Eos % (Auto) 0.0 Baso % (Auto) 1.2 H Absolute Neuts (auto) 4.2 Absolute Lymphs (auto) 1.12 Total Counted Not Reportable Specimen Type ART ART Sample Site R Radial R Radial pH 7.39 7.45 Bicarbonate Actual 38.9 H 37.4 H POC Total CO2 41 39 Base Excess 14 H 13 H O2 Saturation 83 L 95 O2 % 70 70 ABG pCO2 64.9 H 53.4 H ABG pO2 50 L 74 L Bk Test POS POS Respiration Rate 14 O2 Delivery Device Bi / C PAP Vent Vent Mode A-C Tidal Volume 400 POC PEEP 10 EPAP 8 IPAP 14 Blood Gas Notified Whom ICU MD ICU MD Blood Gas Notified Time 1400 1620 Sodium Potassium Chloride Carbon Dioxide Anion Gap BUN Creatinine Estim Creat Clear Calc Est GFR (MDRD) Af Amer Est GFR (MDRD) Non-Af BUN/Creatinine Ratio Glucose Hemoglobin A1c Calcium Phosphorus Magnesium Total Creatine Kinase Triglycerides MRSA (PCR) 05/25/18 04:30 WBC RBC Hgb Hct MCV MCH MCHC RDW RDW Differential Plt Count MPV Immature Gran % (Auto) Neut % (Auto) Lymph % (Auto) Tate % (Auto) Eos % (Auto) Baso % (Auto) Absolute Neuts (auto) Absolute Lymphs (auto) Total Counted Specimen Type Sample Site pH Bicarbonate Actual POC Total CO2 Base Excess O2 Saturation O2 % ABG pCO2 ABG pO2 Bk Test Respiration Rate O2 Delivery Device Vent Mode Tidal Volume POC PEEP EPAP IPAP Blood Gas Notified Whom Blood Gas Notified Time Sodium 140 Potassium 3.8 Chloride 96 L Carbon Dioxide 35.0 H Anion Gap 9 BUN 22 H Creatinine 2.78 H Estim Creat Clear Calc 20.90 Est GFR (MDRD) Af Amer 23 L Est GFR (MDRD) Non-Af 19 L BUN/Creatinine Ratio 7.9 L Glucose 250 H Hemoglobin A1c Calcium 7.5 L Phosphorus 4.3 Magnesium 2.1 Total Creatine Kinase Triglycerides MRSA (PCR) POC Glucose 05/25/18 05/24/18 05/24/18 05:50 23:48 17:29 POC Glucose 219 H 241 H 156 H 05/24/18 11:01 POC Glucose 359 H Medical Necessity - Tobacco Use Smoking Status: Never smoker Tobacco Use: Non-smoker Assessment/Plan All Active Problems Chest pain (Acute) CHF (congestive heart failure) (Acute) Pulmonary HTN (Acute) Acute respiratory failure with hypoxia (Acute) PNA (pneumonia) (Acute) S/P laparoscopic cholecystectomy (Acute) Gall bladder disease (Acute) Impressions 1. Acute respiratory failure with hypoxia and hypercapnia secondary to multilobar pneumonia -with negative Legionella and streptococcal antigens in the urine and a negative respiratory panel. The urine is growing a gram-negative severo lactose broadloom weaver however on the UA there were 0 WBCs. Blood cultures are pending. 2. Morbid obesity 3. Uncontrolled diabetes mellitus-hemoglobin A1c is 12.5. 4. Indeterminate troponin at admission-likely secondary to demand ischemia related to pneumonia and acute respiratory failure. 5. Pulmonary hypertension -estimated pulmonary artery systolic pressure on echocardiogram in 2013 was 44 and I suspect it is likely higher now 6. Sleep disordered breathing-suspect ERICK obesity hypoventilation syndrome 7. Anxiety/depression/PTSD/histrionic personality disorder complicate care management and prognosis 8. ARF CT scan of the chest today Start TF with Vital AF with a goal rate of 60 Recheck the lab in the AM Consult Dr. Cervantes for ARF Lantus started last night Currently on 100% with 12 PEEP and TV 400 DC the Lovenox in light of ARF and start heparin 5,000 SC Q 8H Continue Pepcid for GI prophylaxis. Continue [id number] aerosolized bronchodilators Continue Zosyn, MRSA nasal swab was negative so vancomycin has been discontinued Will review echocardiogram report when available Code Visit Inpatient E&M: [id number] [facility] Hosp L3
--- NOTE | 2018-05-25 07:42 | PN_ITS ---
Patient Problems: Active and Suspected Problems Chest pain (Acute) CHF (congestive heart failure) (Acute) Pulmonary HTN (Acute) Acute respiratory failure with hypoxia (Acute) PNA (pneumonia) (Acute) Subjective: All events of the past 24 hours have been reviewed. Antibiotic Day #3-currently vancomycin and Zosyn Ventilator Day #2 TMAX: 102 ?F Vital signs: Blood pressure has ranged from 92/66 to 115/40 in the past 12 hours. She is on a fentanyl infusion for sedation. Heart rate is within normal limits. She is currently 94% saturated on an FiO2 of 90%. She is not overbreathing the ventilator. Fluid balance: Fluid balance on 05/24/2018 was 108 cc and fluid balance overnight is +367 cc with 125 cc of urine overnight. Urine output: 125 cc overnight Weight: 305 pounds and 1.9 ounces All radiologic testing was reviewed: Portable chest x-ray today shows diffuse infiltrates throughout the right lung and in the left base. There are Now suspected bilateral pleural effusions. All labs were personally reviewed: White blood cell count is 5.6 with 74% neutrophils. Hemoglobin is 13.2 and platelets are normal at 151,000. Serum bicarb is increased at 35 and the BUN is 22 with a creatinine of 2.78, up from 1.07 on 05/23/2018. Phosphorus and magnesium are within normal limits. Blood sugars have improved and the current blood sugar is 219. Microbiology: Urine is growing a gram-negative severo lactose corrections identification technician greater than 100,000 colonies but, there were no WBC's in the urine. Legionella and streptococcal antigens in the urine were negative and the respiratory panel was negative as well. Sputum culture and Gram stain are currently pending. Telemetry: ECHO: Ordered EKG: Secretions for ETT: BM Tolerating TF without residuals Subjective: Objective: General: Sedated with fentanyl and on the ventilator. HEENT: pupils are small and reactive, EOMI, Atraumatic, normocephalic, no scler al icterus, no carotid bruits, no JVD Lungs: crackles anteriorly.....decreased on the R today but increased on the left, no wheezing, symmetric chest expansion, no secretions from the ETT Heart: RRR, no MM, no gallop, no rub, normal S1, normal S2, very distant heart sounds due to body habitus Abdomen: Soft, nondistended, bowel sounds present, no guarding with palpation, no masses, no hepatosplenomegaly, obese Extremities: Edema of the feet, no clubbing, no cyanosis, peripheral pulses normal Neuro: Cranial nerves II through XII grossly intact, Neuro grossly intact, no focal neurologic deficits Skin: Warm and dry, no wounds, no rashes, no jaundice, some excoriation in the skin folds Psych: can not evaluate due to intubation, not responding to verbal commands......when she did open her eyes she did not make eye contact - Physical Exam Vital Signs Temp Pulse Resp BP Pulse Ox 100.3 F H 60 14 98/62 94 05/25/18 06:00 05/25/18 07:06 05/25/18 07:06 05/25/18 06:00 05/25/18 07:06 Oxygen Flow Rate (L/min) 11 Oxygen Delivery Method Mechanical Ventilator Weight: 305 lb 1.916 oz Body Mass Index (BMI) 49.7 Finger Stick Blood Glucose 283 Intake and Output for Last 24 Hours 05/23/18 05/24/18 05/25/18 23:59 23:59 23:59 Intake Total 2007 492 / 492 Output Total 1900 / 1900 125 / 125 Balance 108 / 108 367 / 367 Microbiology Past 72 Hours 05/23/18 18:52 Respiratory Panel (PCR) - Final Mucosa - Nose 05/23/18 15:35 Urine Culture - Preliminary Urine Catheter - Tovar GNR lactose corrections identification technician 05/23/18 18:30 Legionella Antigen - Final Urine Catheter - Tovar 05/23/18 18:30 Streptococcus pneumoniae Antigen (M - Final Urine Catheter - Tovar Laboratory Tests Past 24 Hrs 05/24/18 05/24/18 05/24/18 05:25 05:25 12:50 WBC RBC Hgb Hct MCV MCH MCHC RDW RDW Differential Plt Count MPV Immature Gran % (Auto) Neut % (Auto) Lymph % (Auto) [place] % (Auto) Eos % (Auto) Baso % (Auto) Absolute Neuts (auto) Absolute Lymphs (auto) Total Counted Specimen Type Sample Site pH Bicarbonate Actual POC Total CO2 Base Excess O2 Saturation O2 % ABG pCO2 ABG pO2 Bk Test Respiration Rate O2 Delivery Device Vent Mode Tidal Volume POC PEEP EPAP IPAP Blood Gas Notified Whom Blood Gas Notified Time Sodium Potassium Chloride Carbon Dioxide Anion Gap BUN Creatinine Estim Creat Clear Calc Est GFR (MDRD) Af Amer Est GFR (MDRD) Non-Af BUN/Creatinine Ratio Glucose Hemoglobin A1c 12.5 H Calcium Phosphorus Magnesium Total Creatine Kinase 183 Triglycerides 139 MRSA (PCR) Negative 05/24/18 05/24/18 05/25/18 14:05 16:25 04:30 WBC 5.6 RBC 5.08 Hgb 13.2 Hct 42.1 MCV 82.9 MCH 26.0 L MCHC 31.4 L RDW 14.2 RDW Differential 42.7 Plt Count 151 MPV 10.6 Immature Gran % (Auto) 0.400 Neut % (Auto) 73.9 H Lymph % (Auto) 20.0 [place] % (Auto) 4.5 Eos % (Auto) 0.0 Baso % (Auto) 1.2 H Absolute Neuts (auto) 4.2 Absolute Lymphs (auto) 1.12 Total Counted Not Reportable Specimen Type ART ART Sample Site R Radial R Radial pH 7.39 7.45 Bicarbonate Actual 38.9 H 37.4 H POC Total CO2 41 39 Base Excess 14 H 13 H O2 Saturation 83 L 95 O2 % 70 70 ABG pCO2 64.9 H 53.4 H ABG pO2 50 L 74 L Bk Test POS POS Respiration Rate 14 O2 Delivery Device Bi / C PAP Vent Vent Mode A-C Tidal Volume 400 POC PEEP 10 EPAP 8 IPAP 14 Blood Gas Notified Whom ICU MD ICU Blood Gas Notified Time 1400 1620 Sodium Potassium Chloride Carbon Dioxide Anion Gap BUN Creatinine Estim Creat Clear Calc Est GFR (MDRD) Af Amer Est GFR (MDRD) Non-Af BUN/Creatinine Ratio Glucose Hemoglobin A1c Calcium Phosphorus Magnesium Total Creatine Kinase Triglycerides MRSA (PCR) 05/25/18 04:30 WBC RBC Hgb Hct MCV MCH MCHC RDW RDW Differential Plt Count MPV Immature Gran % (Auto) Neut % (Auto) Lymph % (Auto) [place] % (Auto) Eos % (Auto) Baso % (Auto) Absolute Neuts (auto) Absolute Lymphs (auto) Total Counted Specimen Type Sample Site pH Bicarbonate Actual POC Total CO2 Base Excess O2 Saturation O2 % ABG pCO2 ABG pO2 Bk Test Respiration Rate O2 Delivery Device Vent Mode Tidal Volume POC PEEP EPAP IPAP Blood Gas Notified Whom Blood Gas Notified Time Sodium 140 Potassium 3.8 Chloride 96 L Carbon Dioxide 35.0 H Anion Gap 9 BUN 22 H Creatinine 2.78 H Estim Creat Clear Calc 20.90 Est GFR (MDRD) Af Amer 23 L Est GFR (MDRD) Non-Af 19 L BUN/Creatinine Ratio 7.9 L Glucose 250 H Hemoglobin A1c Calcium 7.5 L Phosphorus 4.3 Magnesium 2.1 Total Creatine Kinase Triglycerides MRSA (PCR) POC Glucose 05/25/18 05/24/18 05/24/18 05:50 23:48 17:29 POC Glucose 219 H 241 H 156 H 05/24/18 11:01 POC Glucose 359 H Medical Necessity - Tobacco Use Smoking Status: Never smoker Tobacco Use: Non-smoker Assessment/Plan All Active Problems Chest pain (Acute) CHF (congestive heart failure) (Acute) Pulmonary HTN (Acute) Acute respiratory failure with hypoxia (Acute) PNA (pneumonia) (Acute) S/P laparoscopic cholecystectomy (Acute) Gall bladder disease (Acute) Impressions 1. Acute respiratory failure with hypoxia and hypercapnia secondary to multilobar pneumonia -with negative Legionella and streptococcal antigens in the urine and a negative respiratory panel. The urine is growing a gram-negative severo lactose corrections identification technician however on the UA there were 0 WBCs. Blood cultures are pending. 2. Morbid obesity 3. Uncontrolled diabetes mellitus-hemoglobin A1c is 12.5. 4. Indeterminate troponin at admission-likely secondary to demand ischemia related to pneumonia and acute respiratory failure. 5. Pulmonary hypertension -estimated pulmonary artery systolic pressure on echo cardiogram in 2013 was 44 and I suspect it is likely higher now 6. Sleep disordered breathing-suspect ERICK obesity hypoventilation syndrome 7. Anxiety/depression/PTSD/histrionic personality disorder complicate care management and prognosis 8. ARF CT scan of the chest today Start TF with Vital AF with a goal rate of 60 Recheck the lab in the AM Consult Dr. Cervantes for ARF Lantus started last night Currently on 100% with 12 PEEP and TV 400 DC the Lovenox in light of ARF and start heparin 5,000 SC Q 8H Continue Pepcid for GI prophylaxis. Continue [id number] aerosolized bronchodilators Continue Zosyn, MRSA nasal swab was negative so vancomycin has been discontinued Will review echocardiogram report when available Code Visit Inpatient E&M: [id number] [facility] Hosp L3
[2018-05-25] MEDS: 0.9% NaCl Peripheral Flush Adult/Peds IV ×3 (07:47→08:43)
[2018-05-25] MEDS: Famotidine 20 MG Tablet GT (09:08)
[2018-05-25] MEDS: Chlorhexidine 15 ML PO ×2 (09:08→21:08)
--- NOTE | 2018-05-25 09:38 | CT_ITS ---
STUDY: CT CHEST WITHOUT CONTRAST REASON FOR EXAM: Female, 57 years old. Acute respiratory failure. RADIATION DOSAGE (If Supplied By Facility): CTDIvol = ( 20.15 ) mGy, DLP = ( 609.16 ) mGycm TECHNIQUE: Transaxial imaging was performed without the administration of intravenous contrast material. Multiplanar coronal and sagittal images were reformatted. Individualized dose optimization techniques were used for this CT. COMPARISON: None. FINDINGS: And endotracheal tube as well as oral gastric tube are seen. There is evidence of a infiltration in the right upper lobe more prominent along the lateral and posterior aspects. This also evidence of infiltrates in both lower lobes with airspace disease. Minimal effusions. Normal heart and pericardium. There are multiple small lymph nodes within the mediastinum, which are normal in size and morphology most compatible with reactive lymph hyperplasia. Normal hilar regions. Normal unenhanced pulmonary arteries. Normal aorta arch and descending thoracic aorta. There are degenerative changes of the thoracic spine. There is no demonstrated abnormality of the visualized upper abdomen. CT/Chest without Contrast IMPRESSION: Infiltrates in both lungs worse in the right upper lobe and both lower lobes. Electronically Signed: Royer Rowe MD at 11:32 EST , Service support ,
[2018-05-25] MEDS: Vital AF 1.2 Cal Liquid 1,000 ML 10 ML GT (11:11)
--- NOTE | 2018-05-25 11:20 | PCM.CONS.R ---
Problem List (1) Acute kidney injury Status: Acute Consultation - Renal PCP/ Referring MD: Requesting physician: [] Primary care physician: Richard Elizabeth MD - History of Present Illness History of Present Illness: The patient is a 57 year old F past medical history of morbid obesity , PTSD , type 2 diabetes . Patient presented to [facility] with progressive shortness of breath , productive cough , and fever . Chest x-ray showed bilateral pneumonia and possible CHF . Patient was admitted initially to PCU I was started with antibiotics and Lasix . Patient clinical status worsened . Patient was transferred to ICU for worsening respiratory status and had to be intubated . Patient was transiently hypotensive last night most probably sedative medications . Renal team was consulted today for worsening kidney function . Creatinine increased today to 2.78 from 1.28 along with urine output decrease. She is patient has a Tovar catheter . Currently she is making 10 cc/h . Not on any pressor . She was started on IV fluid 100 cc/h normal saline . Echocardiogram today showed normal ejection fraction of 55% with grade 1 diastolic dysfunction . Review of systems : Unobtainable due to the patient's condition . Patient is intubated and nonverbal [] - Allergies Allergies: Allergies No Known Allergies Allergy (Verified 05/23/18 14:58) - Current Medications Current Medications: Current Medications Acetaminophen (Tylenol Liquid) 650 mg GT Q4H PRN PRN PRN Reason: T > 100.5 F Last Admin: 05/25/18 01:27 Dose: 650 mg Albuterol Sulfate (Ventolin Aerosols) 2.5 mg INHALATION Q2H PRN PRN PRN Reason: SOB &/OR WHEEZING Albuterol/Ipratropium (Duoneb) 3 ml INHALATION Q4HWA.RT [facility] Last Admin: 05/25/18 11:19 Dose: 3 ml Chlorhexidine Gluconate () 1 each TOPICAL DAILY [facility] Last Admin: 05/25/18 07:00 Dose: 1 each Chlorhexidine Gluconate () 15 ml PO BID [facility] Last Admin: 05/25/18 09:08 Dose: 15 ml Dextrose (D50w Syringe) 0 gm IV X1 PRN; Protocol PRN Reason: Hypoglycemia Famotidine (Pepcid) 20 mg GT DAILY [facility] Last Admin: 05/25/18 09:08 Dose: 20 mg Glucagon () 1 mg IM .X1 PRN PRN Reason: Hypoglycemia Heparin Sodium (Porcine) (Heparin Na) 5,000 unit SC Q8 RUBI Sodium Chloride () 250 mls @ 15 mls/hr IV .[id number] PRN PRN Reason: SALINE FLUSH Sodium Chloride () 250 mls @ 15 mls/hr IV .[id number] PRN PRN Reason: SALINE FLUSH Sodium Chloride () 250 mls @ 15 mls/hr IV .[id number] PRN PRN Reason: SALINE FLUSH Sodium Chloride () 250 mls @ 15 mls/hr IV .[id number] PRN PRN Reason: SALINE FLUSH Propofol (Diprivan) 1,000 mg in 100 mls @ 8.4 mls/hr CONT INF .[id number] [facility] Last Admin: 05/25/18 01:28 Dose: 8.4 mls/hr Fentanyl () 100 mls @ 15 mls/hr IV .Q20H [facility] Last Admin: 05/25/18 04:37 Dose: 15 mls/hr Piperacillin Sod/Tazobactam (Sod 3.375 gm/ Sodium Chloride) 50 mls @ 12.5 mls/hr IV Q12 [facility] Enteral Nutritional Formula (Vital Af 1.2 Glenn Liquid) 1,000 mls @ 60 mls/hr GT .[id number] [facility] Last Admin: 05/25/18 11:11 Dose: 10 mls/hr Insulin Glargine (Lantus (Bkc)) 20 units SC 06,18 [facility] Last Admin: 05/25/18 05:53 Dose: 20 u Insulin Human Lispro (Humalog Kwikpen (Bkc)) 0 unit SC Q6 [facility]; Protocol Last Admin: 05/25/18 05:53 Dose: 6 u Nystatin (Mycostatin Powder) 1 applic TOPICAL TID [facility]; Protocol Last Admin: 05/25/18 05:54 Dose: 1 applic Sodium Chloride () 5 - 15 ml IV UD PRN PRN Reason: SALINE FLUSH Last Admin: 05/25/18 08:43 Dose: 10 ml - Past Medical History Past Medical History (Chronic Problems): Chronic Problems Morbid obesity (Chronic) Histrionic personality disorder (Chronic) PTSD (post-traumatic stress disorder) (Chronic) Anxiety (Chronic) Diabetes (Chronic) - Past Surgical History Surgical History: cholecystectomy, - - wrist surger (R) - Social History Smoking Status: Never smoker Alcohol: None Drugs: None - Family History Maternal History Items: Cancer - lung cancer Paternal History Items: No pertinent history Patient Problems: Active and Suspected Problems Chest pain (Acute) CHF (congestive heart failure) (Acute) Pulmonary HTN (Acute) Acute respiratory failure with hypoxia (Acute) PNA (pneumonia) (Acute) Acute kidney injury (Acute) - Physical Exam General: - - Sedated abd intubated HEENT: Atraumatic Oral: Moist Mucosa Neck: Supple, No JVD, - - ET tube in place Lungs: - - Equal air entry. Bilateral rhonchi Cardiovascular: Regular rate, Regular Rhythm, Normal S1 Abdomen: Bowel Sounds Present, Soft, Non-Distended Extremities: No clubbing, No cyanosis, No edema Skin: No rashes Musculoskeletal: No Muscle Wasting Lymphatic: No Cervical, Supraclavicular, or Inguinal Adenopathy Psych/Mental Status: - - Sedated and intubated Vital Signs Temp Pulse Resp BP Pulse Ox 100.4 F H 69 14 129/79 H 97 05/25/18 07:31 05/25/18 11:00 05/25/18 11:00 05/25/18 11:00 05/25/18 11:00 Oxygen Flow Rate (L/min) 11 Oxygen Delivery Method Mechanical Ventilator Weight: 138.4 kg Body Mass Index (BMI) 49.7 Finger Stick Blood Glucose 283 Intake and Output for Last 24 Hours 05/23/18 05/24/18 05/25/18 23:59 23:59 23:59 Intake Total 2007 492 / 492 Output Total 1900 / 1900 125 / 125 Balance 108 / 108 367 / 367 Microbiology Past 72 Hours 05/24/18 15:00 Respiratory Culture - Preliminary Sputum, Induced/Lukens Culture exhibits no growth. 05/23/18 15:35 Urine Culture - Final Urine Catheter - Tovar Klebsiella pneumoniae sp pneum 05/23/18 18:52 Respiratory Panel (PCR) - Final Mucosa - Nose 05/23/18 18:30 Legionella Antigen - Final Urine Catheter - Tovar 05/23/18 18:30 Streptococcus pneumoniae Antigen (M - Final Urine Catheter - Tovar Laboratory Tests Past 24 Hrs 05/24/18 05/24/18 05/24/18 05:25 12:50 14:05 WBC RBC Hgb Hct MCV MCH MCHC RDW RDW Differential Plt Count MPV Immature Gran % (Auto) Neut % (Auto) Lymph % (Auto) [place] % (Auto) Eos % (Auto) Baso % (Auto) Absolute Neuts (auto) Absolute Lymphs (auto) Total Counted Specimen Type ART Sample Site R Radial pH 7.39 Bicarbonate Actual 38.9 H POC Total CO2 41 Base Excess 14 H O2 Saturation 83 L O2 % 70 ABG pCO2 64.9 H ABG pO2 50 L Bk Test POS Respiration Rate O2 Delivery Device Bi / C PAP Vent Mode Tidal Volume POC PEEP EPAP 8 IPAP 14 Blood Gas Notified Whom ICU MD Blood Gas Notified Time 1400 Sodium Potassium Chloride Carbon Dioxide Anion Gap BUN Creatinine Estim Creat Clear Calc Est GFR (MDRD) Af Amer Est GFR (MDRD) Non-Af BUN/Creatinine Ratio Glucose Calcium Phosphorus Magnesium Total Creatine Kinase 183 B-Natriuretic Peptide Triglycerides 139 MRSA (PCR) Negative 05/24/18 05/25/18 05/25/18 16:25 04:30 04:30 WBC 5.6 RBC 5.08 Hgb 13.2 Hct 42.1 MCV 82.9 MCH 26.0 L MCHC 31.4 L RDW 14.2 RDW Differential 42.7 Plt Count 151 MPV 10.6 Immature Gran % (Auto) 0.400 Neut % (Auto) 73.9 H Lymph % (Auto) 20.0 [place] % (Auto) 4.5 Eos % (Auto) 0.0 Baso % (Auto) 1.2 H Absolute Neuts (auto) 4.2 Absolute Lymphs (auto) 1.12 Total Counted Not Reportable Specimen Type ART Sample Site R Radial pH 7.45 Bicarbonate Actual 37.4 H POC Total CO2 39 Base Excess 13 H O2 Saturation 95 O2 % 70 ABG pCO2 53.4 H ABG pO2 74 L Bk Test POS Respiration Rate 14 O2 Delivery Device Vent Vent Mode A-C Tidal Volume 400 POC PEEP 10 EPAP IPAP Blood Gas Notified Whom ICU MD Blood Gas Notified Time 1620 Sodium 140 Potassium 3.8 Chloride 96 L Carbon Dioxide 35.0 H Anion Gap 9 BUN 22 H Creatinine 2.78 H Estim Creat Clear Calc 20.90 Est GFR (MDRD) Af Amer 23 L Est GFR (MDRD) Non-Af 19 L BUN/Creatinine Ratio 7.9 L Glucose 250 H Calcium 7.5 L Phosphorus 4.3 Magnesium 2.1 Total Creatine Kinase B-Natriuretic Peptide Triglycerides MRSA (PCR) 05/25/18 04:30 WBC RBC Hgb Hct MCV MCH MCHC RDW RDW Differential Plt Count MPV Immature Gran % (Auto) Neut % (Auto) Lymph % (Auto) [place] % (Auto) Eos % (Auto) Baso % (Auto) Absolute Neuts (auto) Absolute Lymphs (auto) Total Counted Specimen Type Sample Site pH Bicarbonate Actual POC Total CO2 Base Excess O2 Saturation O2 % ABG pCO2 ABG pO2 Bk Test Respiration Rate O2 Delivery Device Vent Mode Tidal Volume POC PEEP EPAP IPAP Blood Gas Notified Whom Blood Gas Notified Time Sodium Potassium Chloride Carbon Dioxide Anion Gap BUN Creatinine Estim Creat Clear Calc Est GFR (MDRD) Af Amer Est GFR (MDRD) Non-Af BUN/Creatinine Ratio Glucose Calcium Phosphorus Magnesium Total Creatine Kinase B-Natriuretic Peptide 17.0 Triglycerides MRSA (PCR) POC Glucose 05/25/18 05/24/18 05/24/18 05:50 23:48 17:29 POC Glucose 219 H 241 H 156 H Assessment/Plan All Active Problems Chest pain (Acute) CHF (congestive heart failure) (Acute) Pulmonary HTN (Acute) Acute respiratory failure with hypoxia (Acute) PNA (pneumonia) (Acute) Acute kidney injury (Acute) S/P laparoscopic cholecystectomy (Acute) Gall bladder disease (Acute) 1-acute kidney injury. Normal creatinine 2014. Patient presented with creatinine 1.07 mg/dL. UA showed 100 protein and 100 blood but no RBCs or white cell count. Acute kidney injury is most probably related to hemodynamic instability patient could also progressed toacute tubular necrosis Another possibility is also glomera nephritis. I will check for Goodpasture's syndrome and another GN nephritic etiology. I agree with IV fluid and holding diuretics for now. Keep mean arterial pressure more than 65. No indication for renal replacement therapy. Zosyn is appropriately dosed for the current kidney function level. Check renal panel tomorrow. 2-acute respiratory failure from bilateral pneumonia. Ventilator support as per the fitting supervisor. 5-[id number] pneumonia. Management as per primary/ID service/ Thank you for the consult. Renal team will continue to follow. Please call with any question or concern at my cell phone #[phone]
--- NOTE | 2018-05-25 11:24 | CON.PCM_ITS ---
Problem List (1) Acute kidney injury Status: Acute Consultation - Renal PCP/ Referring MD: Requesting physician: [] Primary care physician: Richard Elizabeth MD - History of Present Illness History of Present Illness: The patient is a 57 year old F past medical history of morbid obesity , PTSD , type 2 diabetes . Patient presented to [facility] with progressive shortness of breath , productive cough , and fever . Chest x-ray showed bilateral pneumonia and possible CHF . Patient was admitted initially to PCU I was started with antibiotics and Lasix . Patient clinical status worsened . Patient was transferred to ICU for worsening respiratory status and had to be intubated . Patient was transiently hypotensive last night most probably sedative medications . Renal team was consulted today for worsening kidney function . Creatinine increased today to 2.78 from 1.28 along with urine output decrease. She is patient has a Tovar catheter . Currently she is making 10 cc/h . Not on any pressor . She was started on IV fluid 100 cc/h normal saline . Echocardiogram today showed normal ejection fraction of 55% with grade 1 diastolic dysfunction . Review of systems : Unobtainable due to the patient's condition . Patient is intubated and nonverbal [] - Allergies Allergies: Allergies No Known Allergies Allergy (Verified 05/23/18 14:58) - Current Medications Current Medications: Current Medications Acetaminophen (Tylenol Liquid) 650 mg GT Q4H PRN PRN PRN Reason: T > 100.5 F Last Admin: 05/25/18 01:27 Dose: 650 mg Albuterol Sulfate (Ventolin Aerosols) 2.5 mg INHALATION Q2H PRN PRN PRN Reason: SOB &/OR WHEEZING Albuterol/Ipratropium (Duoneb) 3 ml INHALATION Q4HWA.RT [facility] Last Admin: 05/25/18 11:19 Dose: 3 ml Chlorhexidine Gluconate () 1 each TOPICAL DAILY [facility] Last Admin: 05/25/18 07:00 Dose: 1 each Chlorhexidine Gluconate () 15 ml PO BID [facility] Last Admin: 05/25/18 09:08 Dose: 15 ml Dextrose (D50w Syringe) 0 gm IV X1 PRN; Protocol PRN Reason: Hypoglycemia Famotidine (Pepcid) 20 mg GT DAILY [facility] Last Admin: 05/25/18 09:08 Dose: 20 mg Glucagon () 1 mg IM .X1 PRN PRN Reason: Hypoglycemia Heparin Sodium (Porcine) (Heparin Na) 5,000 unit SC Q8 RUBI Sodium Chloride () 250 mls @ 15 mls/hr IV .[id number] PRN PRN Reason: SALINE FLUSH Sodium Chloride () 250 mls @ 15 mls/hr IV .[id number] PRN PRN Reason: SALINE FLUSH Sodium Chloride () 250 mls @ 15 mls/hr IV .[id number] PRN PRN Reason: SALINE FLUSH Sodium Chloride () 250 mls @ 15 mls/hr IV .[id number] PRN PRN Reason: SALINE FLUSH Propofol (Diprivan) 1,000 mg in 100 mls @ 8.4 mls/hr CONT INF .[id number] [facility] Last Admin: 05/25/18 01:28 Dose: 8.4 mls/hr Fentanyl () 100 mls @ 15 mls/hr IV .Q20H [facility] Last Admin: 05/25/18 04:37 Dose: 15 mls/hr Piperacillin Sod/Tazobactam (Sod 3.375 gm/ Sodium Chloride) 50 mls @ 12.5 mls/hr IV Q12 [facility] Enteral Nutritional Formula (Vital Af 1.2 Glenn Liquid) 1,000 mls @ 60 mls/hr GT .[id number] [facility] Last Admin: 05/25/18 11:11 Dose: 10 mls/hr Insulin Glargine (Lantus (Bkc)) 20 units SC 06,18 [facility] Last Admin: 05/25/18 05:53 Dose: 20 u Insulin Human Lispro (Humalog Kwikpen (Bkc)) 0 unit SC Q6 [facility]; Protocol Last Admin: 05/25/18 05:53 Dose: 6 u Nystatin (Mycostatin Powder) 1 applic TOPICAL TID [facility]; Protocol Last Admin: 05/25/18 05:54 Dose: 1 applic Sodium Chloride () 5 - 15 ml IV UD PRN PRN Reason: SALINE FLUSH Last Admin: 05/25/18 08:43 Dose: 10 ml - Past Medical History Past Medical History (Chronic Problems): Chronic Problems Morbid obesity (Chronic) Histrionic personality disorder (Chronic) PTSD (post-traumatic stress disorder) (Chronic) Anxiety (Chronic) Diabetes (Chronic) - Past Surgical History Surgical History: cholecystectomy, - - wrist surger (R) - Social History Smoking Status: Never smoker Alcohol: None Drugs: None - Family History Maternal History Items: Cancer - lung cancer Paternal History Items: No pertinent history Patient Problems: Active and Suspected Problems Chest pain (Acute) CHF (congestive heart failure) (Acute) Pulmonary HTN (Acute) Acute respiratory failure with hypoxia (Acute) PNA (pneumonia) (Acute) Acute kidney injury (Acute) - Physical Exam General: - - Sedated abd intubated HEENT: Atraumatic Oral: Moist Mucosa Neck: Supple, No JVD, - - ET tube in place Lungs: - - Equal air entry. Bilateral rhonchi Cardiovascular: Regular rate, Regular Rhythm, Normal S1 Abdomen: Bowel Sounds Present, Soft, Non-Distended Extremities: No clubbing, No cyanosis, No edema Skin: No rashes Musculoskeletal: No Muscle Wasting Lymphatic: No Cervical, Supraclavicular, or Inguinal Adenopathy Psych/Mental Status: - - Sedated and intubated Vital Signs Temp Pulse Resp BP Pulse Ox 100.4 F H 69 14 129/79 H 97 05/25/18 07:31 05/25/18 11:00 05/25/18 11:00 05/25/18 11:00 05/25/18 11:00 Oxygen Flow Rate (L/min) 11 Oxygen Delivery Method Mechanical Ventilator Weight: 138.4 kg Body Mass Index (BMI) 49.7 Finger Stick Blood Glucose 283 Intake and Output for Last 24 Hours 05/23/18 05/24/18 05/25/18 23:59 23:59 23:59 Intake Total 2007 492 / 492 Output Total 1900 / 1900 125 / 125 Balance 108 / 108 367 / 367 Microbiology Past 72 Hours 05/24/18 15:00 Respiratory Culture - Preliminary Sputum, Induced/Lukens Culture exhibits no growth. 05/23/18 15:35 Urine Culture - Final Urine Catheter - Tovar Klebsiella pneumoniae sp pneum 05/23/18 18:52 Respiratory Panel (PCR) - Final Mucosa - Nose 05/23/18 18:30 Legionella Antigen - Final Urine Catheter - Tovar 05/23/18 18:30 Streptococcus pneumoniae Antigen (M - Final Urine Catheter - Tovar Laboratory Tests Past 24 Hrs 05/24/18 05/24/18 05/24/18 05:25 12:50 14:05 WBC RBC Hgb Hct MCV MCH MCHC RDW RDW Differential Plt Count MPV Immature Gran % (Auto) Neut % (Auto) Lymph % (Auto) [place] % (Auto) Eos % (Auto) Baso % (Auto) Absolute Neuts (auto) Absolute Lymphs (auto) Total Counted Specimen Type ART Sample Site R Radial pH 7.39 Bicarbonate Actual 38.9 H POC Total CO2 41 Base Excess 14 H O2 Saturation 83 L O2 % 70 ABG pCO2 64.9 H ABG pO2 50 L Bk Test POS Respiration Rate O2 Delivery Device Bi / C PAP Vent Mode Tidal Volume POC PEEP EPAP 8 IPAP 14 Blood Gas Notified Whom ICU MD Blood Gas Notified Time 1400 Sodium Potassium Chloride Carbon Dioxide Anion Gap BUN Creatinine Estim Creat Clear Calc Est GFR (MDRD) Af Amer Est GFR (MDRD) Non-Af BUN/Creatinine Ratio Glucose Calcium Phosphorus Magnesium Total Creatine Kinase 183 B-Natriuretic Peptide Triglycerides 139 MRSA (PCR) Negative 05/24/18 05/25/18 05/25/18 16:25 04:30 04:30 WBC 5.6 RBC 5.08 Hgb 13.2 Hct 42.1 MCV 82.9 MCH 26.0 L MCHC 31.4 L RDW 14.2 RDW Differential 42.7 Plt Count 151 MPV 10.6 Immature Gran % (Auto) 0.400 Neut % (Auto) 73.9 H Lymph % (Auto) 20.0 [place] % (Auto) 4.5 Eos % (Auto) 0.0 Baso % (Auto) 1.2 H Absolute Neuts (auto) 4.2 Absolute Lymphs (auto) 1.12 Total Counted Not Reportable Specimen Type ART Sample Site R Radial pH 7.45 Bicarbonate Actual 37.4 H POC Total CO2 39 Base Excess 13 H O2 Saturation 95 O2 % 70 ABG pCO2 53.4 H ABG pO2 74 L Bk Test POS Respiration Rate 14 O2 Delivery Device Vent Vent Mode A-C Tidal Volume 400 POC PEEP 10 EPAP IPAP Blood Gas Notified Whom ICU MD Blood Gas Notified Time 1620 Sodium 140 Potassium 3.8 Chloride 96 L Carbon Dioxide 35.0 H Anion Gap 9 BUN 22 H Creatinine 2.78 H Estim Creat Clear Calc 20.90 Est GFR (MDRD) Af Amer 23 L Est GFR (MDRD) Non-Af 19 L BUN/Creatinine Ratio 7.9 L Glucose 250 H Calcium 7.5 L Phosphorus 4.3 Magnesium 2.1 Total Creatine Kinase B-Natriuretic Peptide Triglycerides MRSA (PCR) 05/25/18 04:30 WBC RBC Hgb Hct MCV MCH MCHC RDW RDW Differential Plt Count MPV Immature Gran % (Auto) Neut % (Auto) Lymph % (Auto) [place] % (Auto) Eos % (Auto) Baso % (Auto) Absolute Neuts (auto) Absolute Lymphs (auto) Total Counted Specimen Type Sample Site pH Bicarbonate Actual POC Total CO2 Base Excess O2 Saturation O2 % ABG pCO2 ABG pO2 Bk Test Respiration Rate O2 Delivery Device Vent Mode Tidal Volume POC PEEP EPAP IPAP Blood Gas Notified Whom Blood Gas Notified Time Sodium Potassium Chloride Carbon Dioxide Anion Gap BUN Creatinine Estim Creat Clear Calc Est GFR (MDRD) Af Amer Est GFR (MDRD) Non-Af BUN/Creatinine Ratio Glucose Calcium Phosphorus Magnesium Total Creatine Kinase B-Natriuretic Peptide 17.0 Triglycerides MRSA (PCR) POC Glucose 05/25/18 05/24/18 05/24/18 05:50 23:48 17:29 POC Glucose 219 H 241 H 156 H Assessment/Plan All Active Problems Chest pain (Acute) CHF (congestive heart failure) (Acute) Pulmonary HTN (Acute) Acute respiratory failure with hypoxia (Acute) PNA (pneumonia) (Acute) Acute kidney injury (Acute) S/P laparoscopic cholecystectomy (Acute) Gall bladder disease (Acute) 1-acute kidney injury. Normal creatinine 2014. Patient presented with creatinine 1.07 mg/dL. UA showed 100 protein and 100 blood but no RBCs or white cell count. Acute kidney injury is most probably related to hemodynamic instability patient could also progressed toacute tubular necrosis Another possibility is also glomera nephritis. I will check for Goodpasture's syndrome and another GN nephritic etiology. I agree with IV fluid and holding diuretics for now. Keep mean arterial pressure more than 65. No indication for renal replacement therapy. Zosyn is appropriately dosed for the current kidney function level. Check renal panel tomorrow. 2-acute respiratory failure from bilateral pneumonia. Ventilator support as per the facility maintenance manager. 6-[id number]-fhibfkzu pneumonia. Management as per primary/ID service/ Thank you for the consult. Renal team will continue to follow. Please call with any question or concern at my cell phone #[phone]
[2018-05-25 13:25] LABS: Bedside Glucose 205 mg/dL (70-110)
--- NOTE | 2018-05-25 14:55 | CASEMGMT ---
RN CM Note: pt is in ICU and intubated. Family not available. RN CM Assessment deferred at this time. Olimpia MURPHYN RN ACM
[2018-05-25] MEDS: Heparin Injection (Vial) 5,000 UNIT/ML VIAL 5000 UNIT SC ×2 (16:32→21:08)
[2018-05-25 18:56] LABS: Bedside Glucose 215 mg/dL (70-110)
[2018-05-26] VITALS (37 sets, daily range): BP systolic 90–128; BP diastolic 53–112; PULSE 57–82; RESP 14–16; TEMP 37.4–38.6; O2SAT 90–97
[2018-05-26 00:06] LABS: Bedside Glucose 219 mg/dL (70-110)
[2018-05-26] MEDS: CHLORHEXIDINE GLUC 2% CLOTH 1 EACH TOWELETTE TOPICAL (01:17)
[2018-05-26] MEDS: fentaNYL drip 100 ML 15 MCG IV ×3 (03:25→18:43)
[2018-05-26 04:30] LABS: Absolute Lymphocyte Count 2.34 X10^3/ul (0.83-4.51); Absolute Neutrophil Count 5.4 X10^3/uL (2.0-7.7); Basophil# 0.14 X10^3/uL; Basophil% 1.7 % (0-1); Hematocrit 41.1 % (37-47); Hemoglobin 13.3 g/dl (12.0-15.0); Lymphocyte # 2.34 X10^3/ul (4.0); Lymphocyte % 28.1 % (19-41); Mean Corp Hgb Conc 32.4 g/gl (32-36); Mean Corpuscular Hgb 26.9 pg (27.0-32.0); Mean Corpuscular Volume 83.2 fL (81-99); Mean Platelet Vol. 10.4 fl (6.2-12.0); Monocyte# 0.44 X10^3/uL; Monocyte% 5.3 % (0-10); Neutrophil # 5.38 X10^3/uL (2.7-7.7); Neutrophil % 64.7 % (47-70); Platelet Count 176 K/mm3 (150-450); RBC Distribution Width CV 14.3 % (11.6-14.6); RBC Distribution Width SD 42.8 fl (35.1-43.9); Red Blood Count 4.94 M/mm3 (4.2-5.4); White Blood Count 8.3 K/mm3 (4.4-11.0)
[2018-05-26 04:31] LABS: Anion Gap 11 (5-15); BUN 35 mg/dL (7-18); BUN/Creat Ratio 7.3 RATIO (10-20); Calcium,Total 7.7 mg/dL (8.5-10.1); Chloride 96 mmol/L (98-107); Creatinine, Serum 4.82 mg/dL (0.55-1.02); Differential Indicated SCAN CRITERIA MET; EST Glomerular Filtration Rate 10 mL/min (>60); Est Glom Filt Rate - Afr Amer 12 mL/min (>60); Estimated Creatinine Clearance 12.06 ml/min; Glucose 183 mg/dL (74-106); Magnesium 2.3 mg/dL (1.6-2.6); POSITIVE COUNT NO; POSITIVE DIFFERENTIAL NO; POSITIVE MORPHOLOGY YES; Phosphorus 5.7 mg/dL (2.5-4.9); Potassium 3.9 mmol/L (3.5-5.1); Sodium Level 139 mmol/L (136-145)
[2018-05-26 04:48] LABS: Reactive Lymphocyte 2+
[2018-05-26] MEDS: Insulin Lispro 100 UNIT/ML INSULN.PEN SC ×3 (05:30→18:04)
[2018-05-26] MEDS: Heparin Injection (Vial) 5,000 UNIT/ML VIAL 5000 UNIT SC ×3 (05:32→21:02)
[2018-05-26] MEDS: Nystatin Powder 15gm Bottle 1 APPLIC TOPICAL ×3 (05:32→21:02)
[2018-05-26 05:41] LABS: Bedside Glucose 245 mg/dL (70-110)
--- NOTE | 2018-05-26 06:19 | PCM.PN.INT ---
Subjective: The patient was seen and examined at the bedside this morning. Events from the last 24 hours have been reviewed. The patient remains febrile this morning. T-max over the last 24 hours was 38.8 ?C. She remains hemodynamically stable, but continues to require a high FiO2 to maintain appropriate oxygen saturations. The patient is currently receiving an FiO2 of 80% with a PEEP of 12. She remains on propofol and fentanyl for sedation. She is currently tolerating tube feeds. The patient's creatinine has increased to 4.82 this morning. Urine output is minimal. Objective: The patient's most recent lab work, culture data and imaging studies have all been personally reviewed. Strep and urine Legionella antigens were both negative. Respiratory viral panel was negative. Blood cultures have not grown anything to date. Urine culture was positive for Klebsiella pneumonia, greater than 100,000 colony-forming units. Sputum cultures have been unrevealing to date. CT chest completed May 25 revealed evidence of multifocal bilateral pneumonia. Surface echocardiogram dated May 25 revealed evidence of stage I diastolic dysfunction with an ejection fraction of 55%. General: - - Remains intubated, sedated and mechanically ventilated. Currently tolerating assist control without issue. No ventilator dyssynchrony noted. HEENT: Atraumatic, PERRLA, Normocephalic Oral: No Gingival or Mucosal Lesions/ Ulcerations, - - Endotracheal and OG tubes in place. Neck: Supple, No Nodes, Trachea Midline Lungs: No rhonchi, No wheeze, No rales, Diminished Cardiovascular: Regular rate, Regular Rhythm, Normal S1, Normal S2, No murmurs Abdomen: Bowel Sounds Present, Soft, Non Tender, Non-Distended, Obese Extremities: No clubbing, No cyanosis, Edema Skin: - - No significant change from previous Musculoskeletal: No Tenderness to Palpation of Joints or Extremities, No Muscle Wasting Lymphatic: No Cervical, Supraclavicular, or Inguinal Adenopathy Neurological: - - The patient is currently sedated with a RASS of -1. She will open her eyes transiently to verbal stimulation and then falls quickly back to sleep. Vital Signs Temp Pulse Resp BP Pulse Ox 38.0 C H 67 14 104/60 90 05/26/18 06:00 05/26/18 06:00 05/26/18 06:00 05/26/18 06:00 05/26/18 06:00 Oxygen Flow Rate (L/min) 11 Oxygen Delivery Method Mechanical Ventilator Weight: 305 lb 5.443 oz Body Mass Index (BMI) 49.7 Finger Stick Blood Glucose 283 Intake and Output for Last 24 Hours 05/24/18 05/25/18 05/26/18 23:59 23:59 23:59 Intake Total 2007 1360 / 1360 931.6 / 931.6 Output Total 1900 / 1900 250 / 250 35 / 35 Balance 108 / 108 1110 / 1110 896.6 / 896.6 Labs (Last 48 Hours) 05/23/18 05/23/18 05/24/18 22:41 22:43 05:25 WBC 5.9 RBC 5.12 Hgb 13.5 Hct 43.1 MCV 84.2 MCH 26.4 L MCHC 31.3 L RDW 13.9 RDW Differential 43.4 Plt Count 138 L MPV 10.2 Immature Gran % (Auto) 0.200 Neut % (Auto) 72.5 H Lymph % (Auto) 18.0 L [place] % (Auto) 9.0 Eos % (Auto) 0.0 Baso % (Auto) 0.3 Absolute Neuts (auto) 4.3 Absolute Lymphs (auto) 1.06 Total Counted Not Reportable Reactive Lymphocytes Specimen Type Sample Site pH Bicarbonate Actual POC Total CO2 Base Excess O2 Saturation O2 % ABG pCO2 ABG pO2 Bk Test Respiration Rate O2 Delivery Device Vent Mode Tidal Volume POC PEEP EPAP IPAP Blood Gas Notified Whom Blood Gas Notified Time Sodium Potassium Chloride Carbon Dioxide Anion Gap BUN Creatinine Estim Creat Clear Calc Est GFR (MDRD) Af Amer Est GFR (MDRD) Non-Af BUN/Creatinine Ratio Glucose Hemoglobin A1c Calcium Phosphorus Magnesium Total Creatine Kinase B-Natriuretic Peptide Triglycerides ELANA Screen c-ANCA Antibody p-ANCA Antibody LEE-1 Antibody SS-A/Ro IgG Antibody SS-B/La IgG Antibody Sm (Hercules) Antibody CRUCIBLE [employer]ENDER Antibody Scl-70 Scleroderma Ab Double Strand DNA Ab Centromere B Antibody Glomerular Base Memb Ab Complement C3 Complement C4 MRSA (PCR) POC Glucose 478 H* 461 H* 05/24/18 05/24/18 05/24/18 05:25 05:25 06:31 WBC RBC Hgb Hct MCV MCH MCHC RDW RDW Differential Plt Count MPV Immature Gran % (Auto) Neut % (Auto) Lymph % (Auto) [place] % (Auto) Eos % (Auto) Baso % (Auto) Absolute Neuts (auto) Absolute Lymphs (auto) Total Counted Reactive Lymphocytes Specimen Type Sample Site pH Bicarbonate Actual POC Total CO2 Base Excess O2 Saturation O2 % ABG pCO2 ABG pO2 Bk Test Respiration Rate O2 Delivery Device Vent Mode Tidal Volume POC PEEP EPAP IPAP Blood Gas Notified Whom Blood Gas Notified Time Sodium Potassium Chloride Carbon Dioxide Anion Gap BUN Creatinine Estim Creat Clear Calc Est GFR (MDRD) Af Amer Est GFR (MDRD) Non-Af BUN/Creatinine Ratio Glucose Hemoglobin A1c 12.5 H Calcium Phosphorus Magnesium Total Creatine Kinase 183 B-Natriuretic Peptide Triglycerides 139 ELANA Screen c-ANCA Antibody p-ANCA Antibody LEE-1 Antibody SS-A/Ro IgG Antibody SS-B/La IgG Antibody Sm (Hercules) Antibody [employer]IBLE [employer] Antibody Scl-70 Scleroderma Ab Double Strand DNA Ab Centromere B Antibody Glomerular Base Memb Ab Complement C3 Complement C4 MRSA (PCR) POC Glucose 373 H 05/24/18 05/24/18 05/24/18 11:01 12:50 14:05 WBC RBC Hgb Hct MCV MCH MCHC RDW RDW Differential Plt Count MPV Immature Gran % (Auto) Neut % (Auto) Lymph % (Auto) [place] % (Auto) Eos % (Auto) Baso % (Auto) Absolute Neuts (auto) Absolute Lymphs (auto) Total Counted Reactive Lymphocytes Specimen Type ART Sample Site R Radial pH 7.39 Bicarbonate Actual 38.9 H POC Total CO2 41 Base Excess 14 H O2 Saturation 83 L O2 % 70 ABG pCO2 64.9 H ABG pO2 50 L Bk Test POS Respiration Rate O2 Delivery Device Bi / C PAP Vent Mode Tidal Volume POC PEEP EPAP 8 IPAP 14 Blood Gas Notified Whom ICU MD Blood Gas Notified Time 1400 Sodium Potassium Chloride Carbon Dioxide Anion Gap BUN Creatinine Estim Creat Clear Calc Est GFR (MDRD) Af Amer Est GFR (MDRD) Non-Af BUN/Creatinine Ratio Glucose Hemoglobin A1c Calcium Phosphorus Magnesium Total Creatine Kinase B-Natriuretic Peptide Triglycerides ELANA Screen c-ANCA Antibody p-ANCA Antibody LEE-1 Antibody SS-A/Ro IgG Antibody SS-B/La IgG Antibody Sm (Hercules) Antibody [employer]IBLE [employer] Antibody Scl-70 Scleroderma Ab Double Strand DNA Ab Centromere B Antibody Glomerular Base Memb Ab Complement C3 Complement C4 MRSA (PCR) Negative POC Glucose 359 H 05/24/18 05/24/18 05/24/18 16:25 17:29 23:48 WBC RBC Hgb Hct MCV MCH MCHC RDW RDW Differential Plt Count MPV Immature Gran % (Auto) Neut % (Auto) Lymph % (Auto) [place] % (Auto) Eos % (Auto) Baso % (Auto) Absolute Neuts (auto) Absolute Lymphs (auto) Total Counted Reactive Lymphocytes Specimen Type ART Sample Site R Radial pH 7.45 Bicarbonate Actual 37.4 H POC Total CO2 39 Base Excess 13 H O2 Saturation 95 O2 % 70 ABG pCO2 53.4 H ABG pO2 74 L Bk Test POS Respiration Rate 14 O2 Delivery Device Vent Vent Mode A-C Tidal Volume 400 POC PEEP 10 EPAP IPAP Blood Gas Notified Whom ICU Blood Gas Notified Time 1620 Sodium Potassium Chloride Carbon Dioxide Anion Gap BUN Creatinine Estim Creat Clear Calc Est GFR (MDRD) Af Amer Est GFR (MDRD) Non-Af BUN/Creatinine Ratio Glucose Hemoglobin A1c Calcium Phosphorus Magnesium Total Creatine Kinase B-Natriuretic Peptide Triglycerides ELANA Screen c-ANCA Antibody p-ANCA Antibody LEE-1 Antibody SS-A/Ro IgG Antibody SS-B/La IgG Antibody Sm (Hercules) Antibody [employer]IBLE [employer] Antibody Scl-70 Scleroderma Ab Double Strand DNA Ab Centromere B Antibody Glomerular Base Memb Ab Complement C3 Complement C4 MRSA (PCR) POC Glucose 156 H 241 H 05/25/18 05/25/18 05/25/18 04:30 04:30 04:30 WBC 5.6 RBC 5.08 Hgb 13.2 Hct 42.1 MCV 82.9 MCH 26.0 L MCHC 31.4 L RDW 14.2 RDW Differential 42.7 Plt Count 151 MPV 10.6 Immature Gran % (Auto) 0.400 Neut % (Auto) 73.9 H Lymph % (Auto) 20.0 [place] % (Auto) 4.5 Eos % (Auto) 0.0 Baso % (Auto) 1.2 H Absolute Neuts (auto) 4.2 Absolute Lymphs (auto) 1.12 Total Counted Not Reportable Reactive Lymphocytes Specimen Type Sample Site pH Bicarbonate Actual POC Total CO2 Base Excess O2 Saturation O2 % ABG pCO2 ABG pO2 Bk Test Respiration Rate O2 Delivery Device Vent Mode Tidal Volume POC PEEP EPAP IPAP Blood Gas Notified Whom Blood Gas Notified Time Sodium 140 Potassium 3.8 Chloride 96 L Carbon Dioxide 35.0 H Anion Gap 9 BUN 22 H Creatinine 2.78 H Estim Creat Clear Calc 20.90 Est GFR (MDRD) Af Amer 23 L Est GFR (MDRD) Non-Af 19 L BUN/Creatinine Ratio 7.9 L Glucose 250 H Hemoglobin A1c Calcium 7.5 L Phosphorus 4.3 Magnesium 2.1 Total Creatine Kinase B-Natriuretic Peptide 17.0 Triglycerides ELANA Screen c-ANCA Antibody p-ANCA Antibody LEE-1 Antibody SS-A/Ro IgG Antibody SS-B/La IgG Antibody Sm (Hercules) Antibody CRUCIBLE [employer] Antibody Scl-70 Scleroderma Ab Double Strand DNA Ab Centromere B Antibody Glomerular Base Memb Ab Complement C3 Complement C4 MRSA (PCR) POC Glucose 05/25/18 05/25/18 05/25/18 05:50 12:40 12:40 WBC RBC Hgb Hct MCV MCH MCHC RDW RDW Differential Plt Count MPV Immature Gran % (Auto) Neut % (Auto) Lymph % (Auto) [place] % (Auto) Eos % (Auto) Baso % (Auto) Absolute Neuts (auto) Absolute Lymphs (auto) Total Counted Reactive Lymphocytes Specimen Type Sample Site pH Bicarbonate Actual POC Total CO2 Base Excess O2 Saturation O2 % ABG pCO2 ABG pO2 Bk Test Respiration Rate O2 Delivery Device Vent Mode Tidal Volume POC PEEP EPAP IPAP Blood Gas Notified Whom Blood Gas Notified Time Sodium Potassium Chloride Carbon Dioxide Anion Gap BUN Creatinine Estim Creat Clear Calc Est GFR (MDRD) Af Amer Est GFR (MDRD) Non-Af BUN/Creatinine Ratio Glucose Hemoglobin A1c Calcium Phosphorus Magnesium Total Creatine Kinase B-Natriuretic Peptide Triglycerides ELANA Screen Pending c-ANCA Antibody Pending p-ANCA Antibody Pending LEE-1 Antibody Pending SS-A/Ro IgG Antibody Pending SS-B/La IgG Antibody Pending Sm (Hercules) Antibody Pending [employer]UCIBLE [employer]ER Antibody Pending Scl-70 Scleroderma Ab Pending Double Strand DNA Ab Pending Centromere B Antibody Pending Glomerular Base Memb Ab Pending Complement C3 Pending Complement C4 Pending MRSA (PCR) POC Glucose 219 H 05/25/18 05/25/18 05/25/18 13:19 18:47 23:50 WBC RBC Hgb Hct MCV MCH MCHC RDW RDW Differential Plt Count MPV Immature Gran % (Auto) Neut % (Auto) Lymph % (Auto) [place] % (Auto) Eos % (Auto) Baso % (Auto) Absolute Neuts (auto) Absolute Lymphs (auto) Total Counted Reactive Lymphocytes Specimen Type Sample Site pH Bicarbonate Actual POC Total CO2 Base Excess O2 Saturation O2 % ABG pCO2 ABG pO2 Bk Test Respiration Rate O2 Delivery Device Vent Mode Tidal Volume POC PEEP EPAP IPAP Blood Gas Notified Whom Blood Gas Notified Time Sodium Potassium Chloride Carbon Dioxide Anion Gap BUN Creatinine Estim Creat Clear Calc Est GFR (MDRD) Af Amer Est GFR (MDRD) Non-Af BUN/Creatinine Ratio Glucose Hemoglobin A1c Calcium Phosphorus Magnesium Total Creatine Kinase B-Natriuretic Peptide Triglycerides ELANA Screen c-ANCA Antibody p-ANCA Antibody LEE-1 Antibody SS-A/Ro IgG Antibody SS-B/La IgG Antibody Sm (Hercules) Antibody CRUCIBLE [employer] Antibody Scl-70 Scleroderma Ab Double Strand DNA Ab Centromere B Antibody Glomerular Base Memb Ab Complement C3 Complement C4 MRSA (PCR) POC Glucose 205 H 215 H 219 H 05/26/18 05/26/18 05/26/18 04:00 04:00 05:28 WBC 8.3 RBC 4.94 Hgb 13.3 Hct 41.1 MCV 83.2 MCH 26.9 L MCHC 32.4 RDW 14.3 RDW Differential 42.8 Plt Count 176 MPV 10.4 Immature Gran % (Auto) 0.200 Neut % (Auto) 64.7 Lymph % (Auto) 28.1 [place] % (Auto) 5.3 Eos % (Auto) 0.0 Baso % (Auto) 1.7 H Absolute Neuts (auto) 5.4 Absolute Lymphs (auto) 2.34 Total Counted Not Reportable Reactive Lymphocytes 2+ Specimen Type Sample Site pH Bicarbonate Actual POC Total CO2 Base Excess O2 Saturation O2 % ABG pCO2 ABG pO2 Bk Test Respiration Rate O2 Delivery Device Vent Mode Tidal Volume POC PEEP EPAP IPAP Blood Gas Notified Whom Blood Gas Notified Time Sodium 139 Potassium 3.9 Chloride 96 L Carbon Dioxide 32.0 Anion Gap 11 BUN 35 H Creatinine 4.82 H Estim Creat Clear Calc 12.06 Est GFR (MDRD) Af Amer 12 L Est GFR (MDRD) Non-Af 10 L BUN/Creatinine Ratio 7.3 L Glucose 183 H Hemoglobin A1c Calcium 7.7 L Phosphorus 5.7 H Magnesium 2.3 Total Creatine Kinase B-Natriuretic Peptide Triglycerides ELANA Screen c-ANCA Antibody p-ANCA Antibody LEE-1 Antibody SS-A/Ro IgG Antibody SS-B/La IgG Antibody Sm (Hercules) Antibody CRUCIBLE [employer]ER Antibody Scl-70 Scleroderma Ab Double Strand DNA Ab Centromere B Antibody Glomerular Base Memb Ab Complement C3 Complement C4 MRSA (PCR) POC Glucose 245 H Microbiology 05/25/18 13:25 Sputum, Induced/Lukens Gram Stain - Final 05/23/18 15:10 Blood Culture (Wb) - Anticubital Right Blood Culture - Preliminary No growth in 48 hours. 05/23/18 15:10 Blood Culture (Wb) - Left Forearm Blood Culture - Preliminary No growth in 48 hours. 05/24/18 15:00 Sputum, Induced/Lukens Gram Stain - Final 05/24/18 15:00 Sputum, Induced/Lukens Respiratory Culture - Preliminary Culture exhibits no growth. 05/23/18 15:35 Urine Catheter - [facility] Urine Culture - Final Klebsiella pneumoniae sp pneum 05/23/18 18:52 Mucosa - Nose Respiratory Panel (PCR) - Final Clinical Impression(s) from Imaging Studies Chest X-Ray 05/23/18 15:15 IMPRESSION: Findings suggestive CHF with superimposed atelectasis and/or infiltrate in the right midlung. Electronically Signed: Royer Rowe MD at 15:56 EST , Service support , Chest X-Ray 05/24/18 10:30 IMPRESSION: Findings consistent with CHF. This appears worsening with areas of consolidation at the left lung base. Electronically Signed: Michael Braxton DO at 17:08 EST Tel [phone], Service support , KUB X-Ray 05/24/18 14:46 IMPRESSION: The tip of the orogastric tube is in the body of the stomach. Electronically Signed: Royer Rowe MD at 15:43 EST , Service support , Chest X-Ray 05/24/18 15:10 IMPRESSION: The tip of the endotracheal tube is at 6.3 cm proximal to the ehsan. Electronically Signed: Royer Rowe MD at 15:44 EST , Service support , Chest X-Ray 05/25/18 05:11 IMPRESSION: The tip of the endotracheal tube is at 2.4 sinus proximal to the ehsan. The remainder the examination is unchanged. Electronically Signed: Royer Rowe MD at 8:15 EST , Service support , Chest CT 05/25/18 09:38 IMPRESSION: Infiltrates in both lungs worse in the right upper lobe and both lower lobes. Electronically Signed: Royer Rowe MD at 11:32 EST , Service support , Medical Necessity - Tobacco Use Smoking Status: Never smoker Tobacco Use: Non-smoker Assessment/Plan All Active Problems Chest pain (Acute) CHF (congestive heart failure) (Acute) Pulmonary HTN (Acute) Acute respiratory failure with hypoxia (Acute) PNA (pneumonia) (Acute) Acute kidney injury (Acute) S/P laparoscopic cholecystectomy (Acute) Gall bladder disease (Acute) RECOMMENDATIONS: 1. Continue antibiotics as ordered. We will add Levaquin today with plans to add vancomycin tomorrow if the patient continues to be febrile. 2. Maintain current FiO2 and PEEP requirements. Recommend preferentially weaning FiO2 first. 3. Continue tube feeds as ordered. 4. Continue current sedation regimen with plans to maintain a RASS of -1. 5. Continue appropriate ICU prophylaxis 6. Per nephrology, the patient will require temporary hemodialysis line. IMPRESSIONS: 1. Acute combined respiratory failure secondary to severe community-acquired pneumonia The patient has required ever escalating amounts of respiratory support since her admission to the hospital. She was transferred from the progressive care unit to the intensive care unit on May 24. Following arrival to the ICU, the patient continued to decompensate clinically. Therefore, she was electively intubated on May 24. Her antibiotics were subsequently broadened to include Zosyn. A CT chest was subsequently obtained which did reveal multifocal bilateral pneumonia. Infectious workup is also underway. I strongly suspect that in addition to obstructive sleep apnea, the patient likely has a component of alveolar hypoventilation secondary to her severe obesity. 2. Acute kidney injury Potentially prerenal in etiology, as the patient was initially diuresed on admission to the hospital and also developed a component of hypotension on arrival to the ICU. Nephrology is currently following. 3. Indeterminate troponin Echocardiogram revealed no wall motion abnormalities. 4. Morbid obesity/diabetes mellitus/anxiety/depression/PTSD Complicates care, management, recovery and prognosis. Continue Accu-Cheks and sliding scale insulin coverage. Tube feeds will be continued. TIME: 45 minutes of critical care time, independent of procedures, was spent addressing the patient's acute combined respiratory failure, severe community-acquired pneumonia, acute kidney injury, indeterminate troponin, morbid obesity, review of all data and collaboration with the care team. ([id number]) Code Visit [id number]: [id number] Critical care first hour
[2018-05-26] MEDS: Ipratropium/Albuterol Sulfate 3 ML AMPUL.NEB INHALATION ×4 (06:43→18:45)
--- NOTE | 2018-05-26 06:58 | PN_ITS ---
Patient Problems: Active and Suspected Problems Chest pain (Acute) CHF (congestive heart failure) (Acute) Pulmonary HTN (Acute) Acute respiratory failure with hypoxia (Acute) PNA (pneumonia) (Acute) Acute kidney injury (Acute) Subjective: Day #4 antibiotics-Zosyn Day #3 ventilator All events of the past 24 hours of been reviewed. Tmax on 05/25/2018 was 101.9, current temp is 100.4 ?F from the [facility] FiO2 is down to 80% and she is 90% saturated. Fluid balance on 05/25/2018 was 1110. Fluid balance since admission is +2114. All lab was personally reviewed. The white blood cell count today is 8.3 with a normal differential. Hemoglobin and platelets are within normal limits. Serum bicarb is down to 32 and the chloride is 96. BUN is 35 and the creatinine is now 4.82, up from 2.78 yesterday. Phosphorus is high at 5.7 CT scan on 05/25/2018 showed infiltrates in both lungs, worse in the right upper lobe and both lower lobes. She will open her eyes of you call her name but is not responding to commands. Objective: General: Sedated with fentanyl and on the ventilator. Had to turn the FIO2 up to 100% again recently. Turned PEEP up as well HEENT: pupils are small and reactive, EOMI, Atraumatic, normocephalic, no scleral icterus, no carotid bruits, no JVD Lungs: crackles anteriorly are resolving. no wheezing, symmetric chest expansion, no secretions from the ETT Heart: RRR, no MM, no gallop, no rub, normal S1, normal S2, very distant heart sounds due to body habitus Abdomen: Soft, nondistended, bowel sounds present, no guarding with palpation, no masses, no hepatosplenomegaly, obese, tolerating TF at goal....2 BM's since yesterday Extremities: Edema of the feet, no clubbing, no cyanosis, peripheral pulses normal Neuro: Cranial nerves II through XII grossly intact, Neuro grossly intact, no focal neurologic deficits Skin: Warm and dry, no wounds, no rashes, no jaundice, some excoriation in the skin folds Psych: can not evaluate due to intubation, not responding to verbal commands......when she did open her eyes she did not make eye contact and she closes them again quickly - Physical Exam Vital Signs Temp Pulse Resp BP Pulse Ox 100.4 F H 67 14 104/60 90 05/26/18 06:00 05/26/18 06:00 05/26/18 06:00 05/26/18 06:00 05/26/18 06:00 Oxygen Flow Rate (L/min) 11 Oxygen Delivery Method Mechanical Ventilator Weight: 305 lb 5.443 oz Body Mass Index (BMI) 49.7 Finger Stick Blood Glucose 283 Intake and Output for Last 24 Hours 05/24/18 05/25/18 05/26/18 23:59 23:59 23:59 Intake Total 2007 1360 / 1360 931.6 / 931.6 Output Total 1900 / 1900 250 / 250 35 / 35 Balance 108 / 108 1110 / 1110 896.6 / 896.6 Microbiology Past 72 Hours 05/25/18 13:25 Gram Stain - Final Sputum, Induced/Lukens 05/23/18 15:10 Blood Culture - Preliminary Blood Culture (Wb) - Anticubital Right No growth in 48 hours. 05/23/18 15:10 Blood Culture - Preliminary Blood Culture (Wb) - Left Forearm No growth in 48 hours. 05/24/18 15:00 Gram Stain - Final Sputum, Induced/Lukens Respiratory Culture - Preliminary Culture exhibits no growth. 05/23/18 15:35 Urine Culture - Final Urine Catheter - [facility] Klebsiella pneumoniae sp pneum 05/23/18 18:52 Respiratory Panel (PCR) - Final Mucosa - Nose 05/23/18 18:30 Legionella Antigen - Final Urine Catheter - [facility] 05/23/18 18:30 Streptococcus pneumoniae Antigen (M - Final Urine Catheter - [facility] Laboratory Tests Past 24 Hrs 05/25/18 05/25/18 05/25/18 04:30 04:30 12:40 WBC RBC Hgb Hct MCV MCH MCHC RDW RDW Differential Plt Count MPV Immature Gran % (Auto) Neut % (Auto) Lymph % (Auto) [place] % (Auto) Eos % (Auto) Baso % (Auto) Absolute Neuts (auto) Absolute Lymphs (auto) Total Counted Not Reportable Reactive Lymphocytes Sodium Potassium Chloride Carbon Dioxide Anion Gap BUN Creatinine Estim Creat Clear Calc Est GFR (MDRD) Af Amer Est GFR (MDRD) Non-Af BUN/Creatinine Ratio Glucose Calcium Phosphorus Magnesium B-Natriuretic Peptide 17.0 ELANA Screen Pending c-ANCA Antibody p-ANCA Antibody LEE-1 Antibody Pending SS-A/Ro IgG Antibody Pending SS-B/La IgG Antibody Pending Sm (Hercules) Antibody Pending [employer] Antibody Pending Scl-70 Scleroderma Ab Pending Double Strand DNA Ab Pending Centromere B Antibody Pending Glomerular Base Memb Ab Complement C3 Complement C4 05/25/18 05/26/18 05/26/18 12:40 04:00 04:00 WBC 8.3 RBC 4.94 Hgb 13.3 Hct 41.1 MCV 83.2 MCH 26.9 L MCHC 32.4 RDW 14.3 RDW Differential 42.8 Plt Count 176 MPV 10.4 Immature Gran % (Auto) 0.200 Neut % (Auto) 64.7 Lymph % (Auto) 28.1 [place] % (Auto) 5.3 Eos % (Auto) 0.0 Baso % (Auto) 1.7 H Absolute Neuts (auto) 5.4 Absolute Lymphs (auto) 2.34 Total Counted Not Reportable Reactive Lymphocytes 2+ Sodium 139 Potassium 3.9 Chloride 96 L Carbon Dioxide 32.0 Anion Gap 11 BUN 35 H Creatinine 4.82 H Estim Creat Clear Calc 12.06 Est GFR (MDRD) Af Amer 12 L Est GFR (MDRD) Non-Af 10 L BUN/Creatinine Ratio 7.3 L Glucose 183 H Calcium 7.7 L Phosphorus 5.7 H Magnesium 2.3 B-Natriuretic Peptide ELANA Screen c-ANCA Antibody Pending p-ANCA Antibody Pending LEE-1 Antibody SS-A/Ro IgG Antibody SS-B/La IgG Antibody Sm (Hercules) Antibody [employer] Antibody Scl-70 Scleroderma Ab Double Strand DNA Ab Centromere B Antibody Glomerular Base Memb Ab Pending Complement C3 Pending Complement C4 Pending POC Glucose 05/26/18 05/25/18 05/25/18 05:28 23:50 18:47 POC Glucose 245 H 219 H 215 H 05/25/18 13:19 POC Glucose 205 H Medical Necessity - Tobacco Use Smoking Status: Never smoker Tobacco Use: Non-smoker Assessment/Plan All Active Problems Chest pain (Acute) CHF (congestive heart failure) (Acute) Pulmonary HTN (Acute) Acute respiratory failure with hypoxia (Acute) PNA (pneumonia) (Acute) Acute kidney injury (Acute) S/P laparoscopic cholecystectomy (Acute) Gall bladder disease (Acute) Impressions 1. Acute respiratory failure with hypoxia and hypercapnia secondary to multilobar pneumonia -with negative Legionella and streptococcal antigens in the urine and a negative respiratory panel. The urine grew Klebsiella pneumoniae however on the UA there were 0 WBCs. Blood cultures Had no growth. A repeat sputum was sent on 05/25/2018 and has only 1+ white blood cells with no organisms. There has been no growth. 2. Morbid obesity 3. Uncontrolled diabetes mellitus-hemoglobin A1c is 12.5. 4. Indeterminate troponin at admission-likely secondary to demand ischemia related to pneumonia and acute respiratory failure. 5. Pulmonary hypertension -estimated pulmonary artery systolic pressure on echocardiogram in 2013 was 44 and I suspect it is likely higher now 6. Sleep disordered breathing-suspect ERICK vs obesity hypoventilation syndrome 7. Anxiety/depression/PTSD/histrionic personality disorder complicate care management and prognosis 8. ARF Discussed the lab with Dr. Cervantes and pt will start HD today Dr. Sinha has been consulted for insertion of the dialysis catheter. Continue tube feeds Continue Zosyn and add Levaquin since she is still having fevers..... If she continues to have fevers we will likely add vancomycin autoimmune disease panel is pending, hepatitis panel has been ordered, recheck lab in the a.m. Code Visit Inpatient E&M: 48848 [facility] L[facility]
--- NOTE | 2018-05-26 09:01 | PCM.CONS.B ---
- Consult Date of Consult: 05/26/18 - Reason for Consult Asked to see patient by Dr. Michelle for placement of dialysis catheter for acute renal failure History of Present Illness: 57 y/o WF presented to the hospital with shortness of breath and pneumonia. She is presently in the ICU intubated on ventilatory support. She has type 2 insulin diabetes which is poorly controlled and with her present sepsis - she has developed acute kidney failure. Request for temporary dialysis catheter. Past Medical History: diabetes morbid obesity PTSD, histrionic personality disorder, anxiety disorder pulmonary hypertension Past Surgical History: cholecystectomy, right wrist surgery Medications: Hydroxyzine Pamoate [Vistaril] 50 mg PO TID Zolpidem Tartrate [Ambien] 10 mg PO QHS Atorvastatin Calcium [Lipitor] 40 mg PO QHS Fluticasone 0.05% [Flonase Nasal 2 sprays NASAL DAILY Insulin Human 70/30 [Novolog Mix 35 unit SC BID 70-30 Flexpen Syrn] Linagliptin [Tradjenta] 5 mg PO ROB Lorazepam [Ativan] 1 mg PO DAILY Meloxicam 7.5 mg PO DAILY Paliperidone [Paliperidone ER] 6 mg PO BID Ranitidine HCl 150 mg qd Allergies: Has no known drug allergies Social history: TOB use denies Review of Systems: patient is intubated and ROS cannot be obtained Physical examination: Vital signs Temp 100.4F BP 93.58 General WD/WN obese WF intubated lying in ICU bed HEENT Normocephalic. EOM intact, eyes open to command, trachea midline Lungs decreased breath sounds. No rales/rhonchi/wheezing noted. Heart regular. Abdomen soft and benign. Normal bowel sounds, obese Extremities no pitting edema noted. Genitourinary/Rectal deferred Skin normal skin integrity. Neurological non focal. Psychological intubated, tolerating intubation Impression: acute renal failure Discussion/Plan Plan placement of temporary dialysis catheter The patient's physicians have stated that this is a medical emergency - acute renal failure requiring dialysis - thus no consent form obtained. This procedure will be difficult given patient's body habitus and acute medical condition which complicates procedure and her treatment.
[2018-05-26] MEDS: levoFLOXacin IV 750 MG/150 ML BAG 100 MG IV (09:06)
[2018-05-26] MEDS: Famotidine 20 MG Tablet GT (09:07)
[2018-05-26] MEDS: Chlorhexidine 15 ML PO ×2 (09:08→21:02)
[2018-05-26 09:35] LABS: Allen Test POS; Blood Gas Specimen Type ART; FI02 90; Mode A-C; O2 Delivery Device Vent; PEEP 14; PO2 65 mmHG (75-100); RR 14; SITE L Radial; Time Given 930; Vt 400; pCO2 62.7 mmHg (35-45); pH 7.31 (7.35-7.45)
[2018-05-26 09:36] LABS: Base Excess 6 mmol/L (-2 to +2); Bicarbonate 31.8 mmol/L (22-26); SO2 90 % (95-99); Total Carbon Dioxide 34 mmol/L
[2018-05-26 10:09] LABS: Vancomycin, Random Level 1.2 ug/mL (0.0-15.0)
--- NOTE | 2018-05-26 10:28 | RAD_ITS ---
STUDY: X-RAY CHEST REASON FOR EXAM: Female, 57 years old. Line placement TECHNIQUE: Single AP portable view of the chest. COMPARISON: 05/25/2018 FINDINGS: Stable ET tube and enteric tube. Placement of right subclavian central venous catheter with tip in the mid SVC. No pneumothorax. Persistent unchanged diffuse patchy airspace disease and interstitial edema. Remainder is stable. RAD/CXR for Line Placement IMPRESSION: Stable interval exam. Placement of right subclavian central venous catheter without evidence of pneumothorax Electronically Signed: Rocco Zepeda DO at 11:52 EST Tel , Service support ,
--- NOTE | 2018-05-26 10:50 | PCM.OPRPT ---
Report of Operation Date of Procedure: 05/26/18 Pre-Operative Diagnosis: acute kidney failure Post-Operative Diagnosis: same Surgery/Procedure Performed:: placement of dual lumen tunnelled dialysis catheter ([id number]) Description of Surgical Findings:: placement of dialysis catheter in right subclavian vein Type of Anesthesia:: IV Sedation - propofol bolus by IV Anesthesiologist: Kaylan Sinha Specimen's removed: none Estimated Blood Loss (mL): < 10 ml Fluids Replaced: 200 ml NS Description of Procedure: This is an emergency procedure, patient intubated and cannot give consent. Procedure done at bedside in ICU on ventilatory support IV sedation via propofol drip. Appropriate time out protocol was followed. The patient?s upper chest and neck were then prepped with a surgical skin preparation and sterile surgical drapes were placed. After proper landmarks were ascertained, the skin at the upper right chest area was then infiltrated with 1% xylocaine. A needle trocar was then inserted into the right subclavian vein. Multiple attempts were made before the right subclavian vein could be accessed due to the patient's body habitus. The right subclavian vein was ultimately accessed and there was good aspiration of venous blood. A wire was then threaded into the needle trocar. Once this was done, then the needle trocar was removed. A small skin kelly was made with an 11 blade knife at the wire entrance site. The sequential dilators were then positioned into the right subclavian vein via the Seldinger technique. The hemodialysis catheter was then positioned into the right subclavian vein. The catheter was flushed with normal saline. It had been tunnelled into position via above. Aspiration revealed good influx of blood and the catheter was then flushed with normal saline. A postoperative chest radiograph revealed that the catheter tip was just outside the cardiac silhouette. Oxygen saturation was 95% and BP and VS stable after procedure. Grafts/Implants Used: Covidien Mahurkar Elit 12 Fr dual lumen ref [id number] lot#[id number] - Complications none noted - Admit VTE Documentation VTE Present on Admission: Yes VTE Mechan Device Prophylaxis: SCD's
--- NOTE | 2018-05-26 10:56 | OP.PCM_ITS ---
Report of Operation Date of Procedure: 05/26/18 Pre-Operative Diagnosis: acute kidney failure Post-Operative Diagnosis: same Surgery/Procedure Performed:: placement of dual lumen tunnelled dialysis catheter ([id number]) Description of Surgical Findings:: placement of dialysis catheter in right subclavian vein Type of Anesthesia:: IV Sedation - propofol bolus by IV Anesthesiologist: Kaylan Sinha Specimen's removed: none Estimated Blood Loss (mL): < 10 ml Fluids Replaced: 200 ml NS Description of Procedure: This is an emergency procedure, patient intubated and cannot give consent. Procedure done at bedside in ICU on ventilatory support IV sedation via propofol drip. Appropriate time out protocol was followed. The patient?s upper chest and neck were then prepped with a surgical skin preparation and sterile surgical drapes were placed. After proper landmarks were ascertained, the skin at the upper right chest area was then infiltrated with 1% xylocaine. A needle trocar was then inserted into the right subclavian vein. Multiple attempts were made before the right subclavian vein could be accessed due to the patient's body habitus. The right subclavian vein was ultimately accessed and there was good aspiration of venous blood. A wire was then threaded into the needle trocar. Once this was done, then the needle trocar was removed. A small skin kelly was made with an 11 blade knife at the wire entrance site. The sequential dilators were then positioned into the right subclavian vein via the Seldinger technique. The hemodialysis catheter was then positioned into the right subclavian vein. The catheter was flushed with normal saline. It had been tunnelled into position via above. Aspiration revealed good influx of blood and the catheter was then flushed with normal saline. A postoperative chest radiograph revealed that the catheter tip was just outside the cardiac silhouette. Oxygen saturation was 95% and BP and VS stable after procedure. Grafts/Implants Used: Covidien Mahurkar Elit 12 Fr dual lumen ref [id number] lot#[id number] - Complications none noted - Admit VTE Documentation VTE Present on Admission: Yes VTE Mechan Device Prophylaxis: SCD's
[2018-05-26] MEDS: Propofol 10MG/Ml 1,000 MG/100 ML Bottle 8.4 MG CONT INF (14:48)
[2018-05-26 16:56] LABS: Bedside Glucose 288 mg/dL (70-110)
[2018-05-26] MEDS: Vital AF 1.2 Cal Liquid 1,000 ML 60 ML GT (18:06)
--- NOTE | 2018-05-26 18:42 | PN.RENAL_ITS ---
Patient Problems: Active and Suspected Problems Chest pain (Acute) CHF (congestive heart failure) (Acute) Pulmonary HTN (Acute) Acute respiratory failure with hypoxia (Acute) PNA (pneumonia) (Acute) Acute kidney injury (Acute) Subjective: Pt was seen during HD session. Remains intubated and sedated. Anuric. FIO2 is slightly better at 60% Not on pressors - Physical Exam General: - - sedated HEENT: Atraumatic Oral: Moist Mucosa Neck: Supple, No JVD Lungs: No wheeze, Rales Cardiovascular: Regular rate, Regular Rhythm, Normal S1, Normal S2 Abdomen: Bowel Sounds Present, Soft, Non Tender Extremities: No clubbing, No cyanosis, No edema Skin: No rashes Musculoskeletal: No Muscle Wasting Lymphatic: No Cervical, Supraclavicular, or Inguinal Adenopathy Comment: sedated Vital Signs Temp Pulse Resp BP Pulse Ox 99.9 F H 59 L 16 99/68 95 05/26/18 16:00 05/26/18 18:00 05/26/18 18:00 05/26/18 18:00 05/26/18 18:00 Oxygen Flow Rate (L/min) 11 Oxygen Delivery Method Mechanical Ventilator Weight: 138.5 kg Body Mass Index (BMI) 49.7 Finger Stick Blood Glucose 283 Intake and Output for Last 24 Hours 05/24/18 05/25/18 05/26/18 23:59 23:59 23:59 Intake Total 2007 1360 / 1360 2006.6 / 2006.6 Output Total 1900 / 1900 250 / 250 2035 / 2035 Balance 108 / 108 1110 / 1110 -28.4 / -28.4 Microbiology Past 72 Hours 05/25/18 13:25 Gram Stain - Final Sputum, Induced/Lukens Respiratory Culture - Preliminary Culture exhibits no growth. 05/24/18 15:00 Gram Stain - Final Sputum, Induced/Lukens Respiratory Culture - Preliminary 05/23/18 15:10 Blood Culture - Preliminary Blood Culture (Wb) - Anticubital Right No growth in 48 hours. 05/23/18 15:10 Blood Culture - Preliminary Blood Culture (Wb) - Left Forearm No growth in 48 hours. 05/23/18 15:35 Urine Culture - Final Urine Catheter - T[facility]ar Klebsiella pneumoniae sp pneum 05/23/18 18:52 Respiratory Panel (PCR) - Final Mucosa - Nose 05/23/18 18:30 Legionella Antigen - Final Urine Catheter - [facility] 05/23/18 18:30 Streptococcus pneumoniae Antigen (M - Final Urine Catheter - [facility] Laboratory Tests Past 24 Hrs 05/26/18 05/26/18 05/26/18 04:00 04:00 08:55 WBC 8.3 RBC 4.94 Hgb 13.3 Hct 41.1 MCV 83.2 MCH 26.9 L MCHC 32.4 RDW 14.3 RDW Differential 42.8 Plt Count 176 MPV 10.4 Immature Gran % (Auto) 0.200 Neut % (Auto) 64.7 Lymph % (Auto) 28.1 [place] % (Auto) 5.3 Eos % (Auto) 0.0 Baso % (Auto) 1.7 H Absolute Neuts (auto) 5.4 Absolute Lymphs (auto) 2.34 Total Counted Not Reportable Reactive Lymphocytes 2+ Specimen Type Sample Site pH Bicarbonate Actual POC Total CO2 Base Excess O2 Saturation O2 % ABG pCO2 ABG pO2 Bk Test Respiration Rate O2 Delivery Device Minute Volume Vent Mode Tidal Volume POC PEEP Blood Gas Notified Whom Blood Gas Notified Time Sodium 139 Potassium 3.9 Chloride 96 L Carbon Dioxide 32.0 Anion Gap 11 BUN 35 H Creatinine 4.82 H Estim Creat Clear Calc 12.06 Est GFR (MDRD) Af Amer 12 L Est GFR (MDRD) Non-Af 10 L BUN/Creatinine Ratio 7.3 L Glucose 183 H Calcium 7.7 L Phosphorus 5.7 H Magnesium 2.3 Random Vancomycin 1.2 Hep Bs Antigen Hep Bs Antibody Hep B Core IgM Ab 05/26/18 05/26/18 09:30 16:40 WBC RBC Hgb Hct MCV MCH MCHC RDW RDW Differential Plt Count MPV Immature Gran % (Auto) Neut % (Auto) Lymph % (Auto) [place] % (Auto) Eos % (Auto) Baso % (Auto) Absolute Neuts (auto) Absolute Lymphs (auto) Total Counted Reactive Lymphocytes Specimen Type ART Sample Site L Radial pH 7.31 L Bicarbonate Actual 31.8 H POC Total CO2 34 Base Excess 6 H O2 Saturation 90 L O2 % 90 ABG pCO2 62.7 H ABG pO2 65 L Bk Test POS Respiration Rate 14 O2 Delivery Device Vent Minute Volume 7.00 Vent Mode A-C Tidal Volume 400 POC PEEP 14 Blood Gas Notified Whom ICU Blood Gas Notified Time 930 Sodium Potassium Chloride Carbon Dioxide Anion Gap BUN Creatinine Estim Creat Clear Calc Est GFR (MDRD) Af Amer Est GFR (MDRD) Non-Af BUN/Creatinine Ratio Glucose Calcium Phosphorus Magnesium Random Vancomycin Hep Bs Antigen Pending Hep Bs Antibody Pending Hep B Core IgM Ab Pending POC Glucose 05/26/18 05/26/18 05/25/18 16:49 05:28 23:50 POC Glucose 288 H 245 H 219 H 05/25/18 18:47 POC Glucose 215 H Medical Necessity - Tobacco Use Smoking Status: Never smoker Tobacco Use: Non-smoker Assessment/Plan All Active Problems Chest pain (Acute) CHF (congestive heart failure) (Acute) Pulmonary HTN (Acute) Acute respiratory failure with hypoxia (Acute) PNA (pneumonia) (Acute) Acute kidney injury (Acute) S/P laparoscopic cholecystectomy (Acute) Gall bladder disease (Acute) 1-acute kidney injury. Normal creatinine 2014. Patient presented with creatinine 1.07 mg/dL. UA showed 100 protein and 100 blood but no RBCs or white cell count. Acute kidney injury is most probably related ATN Another possibility with this UA finding is glomera nephritis. I will check for Goodpasture's syndrome and another GN nephritic etiology. No recovery of kidney function. Cr continues to rise. Anuric HD was started today. Seen during HD session. BQ 250, DQ 500 UF 2L Zosyn is appropriately dosed for the current kidney function level. Continue to monitor for kidney function recovery 2-Acute respiratory failure from bilateral pneumonia. Ventilator support as per the payroll professional. 3-tdpvehnde-yodfanyl pneumonia. Abx as per the ICU/Primary service Thank you for the consult. Renal team will continue to follow. Please call with any question or concern at my cell phone #[phone]
--- NOTE | 2018-05-26 18:46 | DIALYSIS ---
HD X 2 HOURS ON 3K BATH UF-2000ML TOLERATED FAIR BP LOW AT TIMES IN 80'S MEAN 65. DR PINK HERE AT THE END OF DIALYSIS PT TO RUN AGAIN 05/27/18. RIGHT SUBCLAVIAN CATH WITH FLOWS OF 250. NO MEDS GIVEN. REPORT TO [place] CRUZ
[2018-05-26] MEDS: Heparin 10,000 UNITS/10 ML Vial IV (19:12)
[2018-05-27] VITALS (35 sets, daily range): BP systolic 88–130; BP diastolic 57–90; PULSE 57–95; RESP 14–28; TEMP 36.7–37.7; O2SAT 9–97
[2018-05-27] MEDS: Insulin Lispro 100 UNIT/ML INSULN.PEN SC ×6 (00:30→21:54)
--- NOTE | 2018-05-27 00:46 | CPS ---
increased peep back up to 16, pt desaturated to 87% on peep of 14 after repositioning pt.
[2018-05-27] MEDS: CHLORHEXIDINE GLUC 2% CLOTH 1 EACH TOWELETTE TOPICAL (01:13)
[2018-05-27] MEDS: fentaNYL drip 100 ML 15 MCG IV ×4 (01:15→23:59)
[2018-05-27 01:20] LABS: Bedside Glucose 357 mg/dL (70-110)
[2018-05-27 06:01] LABS: BUN 47 mg/dL (7-18); BUN/Creat Ratio 8.3 RATIO (10-20); Calcium,Total 7.6 mg/dL (8.5-10.1); Chloride 96 mmol/L (98-107); Creatinine, Serum 5.65 mg/dL (0.55-1.02); EST Glomerular Filtration Rate 8 mL/min (>60); Est Glom Filt Rate - Afr Amer 10 mL/min (>60); Estimated Creatinine Clearance 10.28 ml/min; Glucose 376 mg/dL (74-106); Magnesium 2.4 mg/dL (1.6-2.6); Phosphorus 4.4 mg/dL (2.5-4.9); Potassium 3.8 mmol/L (3.5-5.1); Sodium Level 137 mmol/L (136-145)
[2018-05-27 06:02] LABS: Anion Gap 14 (5-15)
[2018-05-27] MEDS: Heparin Injection (Vial) 5,000 UNIT/ML VIAL 5000 UNIT SC ×3 (06:10→21:52)
[2018-05-27] MEDS: Nystatin Powder 15gm Bottle 1 APPLIC TOPICAL ×3 (06:11→21:52)
[2018-05-27 06:12] LABS: Absolute Lymphocyte Count 1.46 X10^3/ul (0.83-4.51); Absolute Neutrophil Count 4.5 X10^3/uL (2.0-7.7); Basophil# 0.04 X10^3/uL; Basophil% 0.6 % (0-1); Eosinophil# 0.02 X10^3/uL; Eosinophils% 0.3 % (0-5); Hematocrit 37.9 % (37-47); Hemoglobin 12.1 g/dl (12.0-15.0); Lymphocyte # 1.46 X10^3/ul (4.0); Lymphocyte % 22.2 % (19-41); Mean Corp Hgb Conc 31.9 g/gl (32-36); Mean Corpuscular Hgb 26.1 pg (27.0-32.0); Mean Corpuscular Volume 81.9 fL (81-99); Mean Platelet Vol. 10.2 fl (6.2-12.0); Monocyte# 0.55 X10^3/uL; Monocyte% 8.3 % (0-10); Neutrophil # 4.51 X10^3/uL (2.7-7.7); Neutrophil % 68.4 % (47-70); Platelet Count 171 K/mm3 (150-450); Red Blood Count 4.63 M/mm3 (4.2-5.4); White Blood Count 6.6 K/mm3 (4.4-11.0)
[2018-05-27 06:14] LABS: Differential Indicated SCAN CRITERIA MET; POSITIVE COUNT NO; POSITIVE DIFFERENTIAL NO; POSITIVE MORPHOLOGY YES
[2018-05-27] MEDS: Propofol 10MG/Ml 1,000 MG/100 ML Bottle 8.4 MG CONT INF ×2 (06:23→19:53)
--- NOTE | 2018-05-27 06:31 | PCM.PN.INT ---
Subjective: The patient was seen and examined at the bedside this morning. Events from the last 24 hours have been reviewed. The patient's fever curve is slowly improving after Levaquin was added to her antibiotic regimen yesterday. She has remained hemodynamically stable. Tube feeds are currently at goal. Patient did undergo hemodialysis yesterday with 2 L of fluid removed. Her FiO2 was able to be weaned to 60% this morning. Her PEEP has also been weaned to 10. Objective: The patient's most recent lab work, culture data and imaging studies have all been personally reviewed. Strep and urine Legionella antigens were both negative. Respiratory viral panel was negative. Blood cultures have not grown anything to date. Urine culture was positive for Klebsiella pneumonia, greater than 100,000 colony-forming units. Sputum cultures have been unrevealing to date. CT chest completed May 25 revealed evidence of multifocal bilateral pneumonia. Surface echocardiogram dated May 25 revealed evidence of stage I diastolic dysfunction with an ejection fraction of 55%. General: - - Intubated and mechanically ventilated. Currently tolerating assist control without issue. HEENT: Atraumatic, PERRLA, Normocephalic Oral: No Gingival or Mucosal Lesions/ Ulcerations, - - Endotracheal and OG tubes remain in place. Neck: Supple, No Nodes, Trachea Midline Lungs: No rhonchi, No wheeze, No rales, Diminished Cardiovascular: Regular rate, Regular Rhythm, Normal S1, Normal S2, No murmurs Abdomen: Bowel Sounds Present, Soft, Non Tender, Obese Extremities: No clubbing, No cyanosis, Edema Skin: - - No significant change from previous. Musculoskeletal: No Tenderness to Palpation of Joints or Extremities, No Muscle Wasting Lymphatic: No Cervical, Supraclavicular, or Inguinal Adenopathy Neurological: - - The patient is alert and will follow simple commands appropriately Vital Signs Temp Pulse Resp BP Pulse Ox 37.4 C H 58 L 17 91/65 95 05/27/18 06:00 05/27/18 06:00 05/27/18 06:00 05/27/18 06:00 05/27/18 06:00 Oxygen Flow Rate (L/min) 11 Oxygen Delivery Method Mechanical Ventilator Weight: 305 lb 8.971 oz Body Mass Index (BMI) 49.7 Finger Stick Blood Glucose 283 Intake and Output for Last 24 Hours 05/25/18 05/26/18 05/27/18 23:59 23:59 23:59 Intake Total 1360 / 1360 2106.6 / 2106.6 1684.5 / 1684.5 Output Total 250 / 250 2034 / 2034 Balance 1110 / 1110 71.6 / 71.6 1664.5 / 1664.5 Labs (Last 48 Hours) 05/25/18 05/25/18 05/25/18 04:30 04:30 12:40 WBC RBC Hgb Hct MCV MCH MCHC RDW RDW Differential Plt Count MPV Immature Gran % (Auto) Neut % (Auto) Lymph % (Auto) [place] % (Auto) Eos % (Auto) Baso % (Auto) Absolute Neuts (auto) Absolute Lymphs (auto) Total Counted Not Reportable Reactive Lymphocytes Specimen Type Sample Site pH Bicarbonate Actual POC Total CO2 Base Excess O2 Saturation O2 % ABG pCO2 ABG pO2 Bk Test Respiration Rate O2 Delivery Device Minute Volume Vent Mode Tidal Volume POC PEEP Blood Gas Notified Whom Blood Gas Notified Time Sodium Potassium Chloride Carbon Dioxide Anion Gap BUN Creatinine Estim Creat Clear Calc Est GFR (MDRD) Af Amer Est GFR (MDRD) Non-Af BUN/Creatinine Ratio Glucose Calcium Phosphorus Magnesium B-Natriuretic Peptide 17.0 Random Vancomycin ELANA Screen Pending c-ANCA Antibody p-ANCA Antibody LEE-1 Antibody Pending SS-A/Ro IgG Antibody Pending SS-B/La IgG Antibody Pending Sm (Hercules) Antibody Pending PASTORAL ASSISTANT Antibody Pending Scl-70 Scleroderma Ab Pending Double Strand DNA Ab Pending Centromere B Antibody Pending Glomerular Base Memb Ab Complement C3 Complement C4 Hep Bs Antigen Hep Bs Antibody Hep B Core IgM Ab POC Glucose 05/25/18 05/25/18 05/25/18 12:40 13:19 18:47 WBC RBC Hgb Hct MCV MCH MCHC RDW RDW Differential Plt Count MPV Immature Gran % (Auto) Neut % (Auto) Lymph % (Auto) [place] % (Auto) Eos % (Auto) Baso % (Auto) Absolute Neuts (auto) Absolute Lymphs (auto) Total Counted Reactive Lymphocytes Specimen Type Sample Site pH Bicarbonate Actual POC Total CO2 Base Excess O2 Saturation O2 % ABG pCO2 ABG pO2 Bk Test Respiration Rate O2 Delivery Device Minute Volume Vent Mode Tidal Volume POC PEEP Blood Gas Notified Whom Blood Gas Notified Time Sodium Potassium Chloride Carbon Dioxide Anion Gap BUN Creatinine Estim Creat Clear Calc Est GFR (MDRD) Af Amer Est GFR (MDRD) Non-Af BUN/Creatinine Ratio Glucose Calcium Phosphorus Magnesium B-Natriuretic Peptide Random Vancomycin ELANA Screen c-ANCA Antibody Pending p-ANCA Antibody Pending LEE-1 Antibody SS-A/Ro IgG Antibody SS-B/La IgG Antibody Sm (Hercules) Antibody PASTORAL ASSISTANT Antibody Scl-70 Scleroderma Ab Double Strand DNA Ab Centromere B Antibody Glomerular Base Memb Ab Pending Complement C3 Pending Complement C4 Pending Hep Bs Antigen Hep Bs Antibody Hep B Core IgM Ab POC Glucose 205 H 215 H 05/25/18 05/26/18 05/26/18 23:50 04:00 04:00 WBC 8.3 RBC 4.94 Hgb 13.3 Hct 41.1 MCV 83.2 MCH 26.9 L MCHC 32.4 RDW 14.3 RDW Differential 42.8 Plt Count 176 MPV 10.4 Immature Gran % (Auto) 0.200 Neut % (Auto) 64.7 Lymph % (Auto) 28.1 Nolan % (Auto) 5.3 Eos % (Auto) 0.0 Baso % (Auto) 1.7 H Absolute Neuts (auto) 5.4 Absolute Lymphs (auto) 2.34 Total Counted Not Reportable Reactive Lymphocytes 2+ Specimen Type Sample Site pH Bicarbonate Actual POC Total CO2 Base Excess O2 Saturation O2 % ABG pCO2 ABG pO2 Bk Test Respiration Rate O2 Delivery Device Minute Volume Vent Mode Tidal Volume POC PEEP Blood Gas Notified Whom Blood Gas Notified Time Sodium 139 Potassium 3.9 Chloride 96 L Carbon Dioxide 32.0 Anion Gap 11 BUN 35 H Creatinine 4.82 H Estim Creat Clear Calc 12.06 Est GFR (MDRD) Af Amer 12 L Est GFR (MDRD) Non-Af 10 L BUN/Creatinine Ratio 7.3 L Glucose 183 H Calcium 7.7 L Phosphorus 5.7 H Magnesium 2.3 B-Natriuretic Peptide Random Vancomycin ELANA Screen c-ANCA Antibody p-ANCA Antibody LEE-1 Antibody SS-A/Ro IgG Antibody SS-B/La IgG Antibody Sm (Hercules) Antibody PASTORAL ASSISTANT Antibody Scl-70 Scleroderma Ab Double Strand DNA Ab Centromere B Antibody Glomerular Base Memb Ab Complement C3 Complement C4 Hep Bs Antigen Hep Bs Antibody Hep B Core IgM Ab POC Glucose 219 H 05/26/18 05/26/18 05/26/18 05:28 08:55 09:30 WBC RBC Hgb Hct MCV MCH MCHC RDW RDW Differential Plt Count MPV Immature Gran % (Auto) Neut % (Auto) Lymph % (Auto) Nolan % (Auto) Eos % (Auto) Baso % (Auto) Absolute Neuts (auto) Absolute Lymphs (auto) Total Counted Reactive Lymphocytes Specimen Type ART Sample Site L Radial pH 7.31 L Bicarbonate Actual 31.8 H POC Total CO2 34 Base Excess 6 H O2 Saturation 90 L O2 % 90 ABG pCO2 62.7 H ABG pO2 65 L Bk Test POS Respiration Rate 14 O2 Delivery Device Vent Minute Volume 7.00 Vent Mode A-C Tidal Volume 400 POC PEEP 14 Blood Gas Notified Whom ICU MD Blood Gas Notified Time 930 Sodium Potassium Chloride Carbon Dioxide Anion Gap BUN Creatinine Estim Creat Clear Calc Est GFR (MDRD) Af Amer Est GFR (MDRD) Non-Af BUN/Creatinine Ratio Glucose Calcium Phosphorus Magnesium B-Natriuretic Peptide Random Vancomycin 1.2 ELANA Screen c-ANCA Antibody p-ANCA Antibody LEE-1 Antibody SS-A/Ro IgG Antibody SS-B/La IgG Antibody Sm (Hercules) Antibody PASTORAL ASSISTANT Antibody Scl-70 Scleroderma Ab Double Strand DNA Ab Centromere B Antibody Glomerular Base Memb Ab Complement C3 Complement C4 Hep Bs Antigen Hep Bs Antibody Hep B Core IgM Ab POC Glucose 245 H 05/26/18 05/26/18 05/27/18 16:40 16:49 01:09 WBC RBC Hgb Hct MCV MCH MCHC RDW RDW Differential Plt Count MPV Immature Gran % (Auto) Neut % (Auto) Lymph % (Auto) Nolan % (Auto) Eos % (Auto) Baso % (Auto) Absolute Neuts (auto) Absolute Lymphs (auto) Total Counted Reactive Lymphocytes Specimen Type Sample Site pH Bicarbonate Actual POC Total CO2 Base Excess O2 Saturation O2 % ABG pCO2 ABG pO2 Bk Test Respiration Rate O2 Delivery Device Minute Volume Vent Mode Tidal Volume POC PEEP Blood Gas Notified Whom Blood Gas Notified Time Sodium Potassium Chloride Carbon Dioxide Anion Gap BUN Creatinine Estim Creat Clear Calc Est GFR (MDRD) Af Amer Est GFR (MDRD) Non-Af BUN/Creatinine Ratio Glucose Calcium Phosphorus Magnesium B-Natriuretic Peptide Random Vancomycin ELANA Screen c-ANCA Antibody p-ANCA Antibody LEE-1 Antibody SS-A/Ro IgG Antibody SS-B/La IgG Antibody Sm (Hercules) Antibody PASTORAL ASSISTANT Antibody Scl-70 Scleroderma Ab Double Strand DNA Ab Centromere B Antibody Glomerular Base Memb Ab Complement C3 Complement C4 Hep Bs Antigen Pending Hep Bs Antibody Pending Hep B Core IgM Ab Pending POC Glucose 288 H 357 H 05/27/18 05/27/18 05:30 05:30 WBC 6.6 RBC 4.63 Hgb 12.1 Hct 37.9 MCV 81.9 MCH 26.1 L MCHC 31.9 L RDW 14.0 RDW Differential 42.0 Plt Count 171 MPV 10.2 Immature Gran % (Auto) 0.200 Neut % (Auto) 68.4 Lymph % (Auto) 22.2 Nolan % (Auto) 8.3 Eos % (Auto) 0.3 Baso % (Auto) 0.6 Absolute Neuts (auto) 4.5 Absolute Lymphs (auto) 1.46 Total Counted Pending Reactive Lymphocytes Specimen Type Sample Site pH Bicarbonate Actual POC Total CO2 Base Excess O2 Saturation O2 % ABG pCO2 ABG pO2 Bk Test Respiration Rate O2 Delivery Device Minute Volume Vent Mode Tidal Volume POC PEEP Blood Gas Notified Whom Blood Gas Notified Time Sodium 137 Potassium 3.8 Chloride 96 L Carbon Dioxide 27.0 Anion Gap 14 BUN 47 H Creatinine 5.65 H Estim Creat Clear Calc 10.28 Est GFR (MDRD) Af Amer 10 L Est GFR (MDRD) Non-Af 8 L BUN/Creatinine Ratio 8.3 L Glucose 376 H Calcium 7.6 L Phosphorus 4.4 Magnesium 2.4 B-Natriuretic Peptide Random Vancomycin ELANA Screen c-ANCA Antibody p-ANCA Antibody LEE-1 Antibody SS-A/Ro IgG Antibody SS-B/La IgG Antibody Sm (Hercules) Antibody PASTORAL ASSISTANT Antibody Scl-70 Scleroderma Ab Double Strand DNA Ab Centromere B Antibody Glomerular Base Memb Ab Complement C3 Complement C4 Hep Bs Antigen Hep Bs Antibody Hep B Core IgM Ab POC Glucose Microbiology 05/26/18 21:05 Stool C. difficile DNA Amplification - Final 05/25/18 13:25 Sputum, Induced/Lukens Gram Stain - Final 05/25/18 13:25 Sputum, Induced/Lukens Respiratory Culture - Preliminary Culture exhibits no growth. 05/24/18 15:00 Sputum, Induced/Lukens Gram Stain - Final 05/24/18 15:00 Sputum, Induced/Lukens Respiratory Culture - Preliminary 05/23/18 15:10 Blood Culture (Wb) - Anticubital Right Blood Culture - Preliminary No growth in 48 hours. 05/23/18 15:10 Blood Culture (Wb) - Left Forearm Blood Culture - Preliminary No growth in 48 hours. 05/23/18 15:35 Urine Catheter - Tovar Urine Culture - Final Klebsiella pneumoniae sp pneum Clinical Impression(s) from Imaging Studies Chest X-Ray 05/23/18 15:15 IMPRESSION: Findings suggestive CHF with superimposed atelectasis and/or infiltrate in the right midlung. Electronically Signed: Royer Rowe MD at 15:56 EST , Service support , Chest X-Ray 05/24/18 10:30 IMPRESSION: Findings consistent with CHF. This appears worsening with areas of consolidation at the left lung base. Electronically Signed: Michael Braxton DO at 17:08 EST Tel [phone], Service support , KUB X-Ray 05/24/18 14:46 IMPRESSION: The tip of the orogastric tube is in the body of the stomach. Electronically Signed: Royer Rowe MD at 15:43 EST , Service support , Chest X-Ray 05/24/18 15:10 IMPRESSION: The tip of the endotracheal tube is at 6.3 cm proximal to the ehsan. Electronically Signed: Royer Rowe MD at 15:44 EST , Service support , Chest X-Ray 05/25/18 05:11 IMPRESSION: The tip of the endotracheal tube is at 2.4 sinus proximal to the ehsan. The remainder the examination is unchanged. Electronically Signed: Royer Rowe MD at 8:15 EST , Service support , Chest CT 05/25/18 09:38 IMPRESSION: Infiltrates in both lungs worse in the right upper lobe and both lower lobes. Electronically Signed: Royer Rowe MD at 11:32 EST , Service support , Chest X-Ray 05/26/18 10:28 IMPRESSION: Stable interval exam. Placement of right subclavian central venous catheter without evidence of pneumothorax Electronically Signed: Rocco Zepeda DO at 11:52 EST Tel , Service support , Medical Necessity - Tobacco Use Smoking Status: Never smoker Tobacco Use: Non-smoker Assessment/Plan All Active Problems Chest pain (Acute) CHF (congestive heart failure) (Acute) Pulmonary HTN (Acute) Acute respiratory failure with hypoxia (Acute) PNA (pneumonia) (Acute) Acute kidney injury (Acute) S/P laparoscopic cholecystectomy (Acute) Gall bladder disease (Acute) RECOMMENDATIONS: 1. Continue antibiotics as ordered. 2. Respiratory to preferentially wean FiO2 today and maintain PEEP at 10. 3. Continue hemodialysis per nephrology recommendations. 4. Continue tube feeds as ordered. 5. Continue current sedation regimen with plans to maintain a RASS of -1. 6. Continue appropriate ICU prophylaxis IMPRESSIONS: 1. Acute combined respiratory failure secondary to severe community-acquired pneumonia The patient has required ever escalating amounts of respiratory support since her admission to the hospital. She was transferred from the progressive care unit to the intensive care unit on May 24. Following arrival to the ICU, the patient continued to decompensate clinically. Therefore, she was electively intubated on May 24. Her antibiotics were subsequently broadened to include Zosyn. A CT chest was subsequently obtained which did reveal multifocal bilateral pneumonia. Infectious workup is also underway. I strongly suspect that in addition to obstructive sleep apnea, the patient likely has a component of alveolar hypoventilation secondary to her severe obesity. 2. Acute kidney injury Likely secondary to ATN, as the patient was initially diuresed on admission to the hospital and also developed a component of hypotension on arrival to the ICU. Nephrology is currently following. The patient did undergo hemodialysis yesterday with 2 L of fluid removed. Hemodialysis support will be continued per nephrology recommendations. 3. Indeterminate troponin Echocardiogram revealed no wall motion abnormalities. 4. Morbid obesity/diabetes mellitus/anxiety/depression/PTSD Complicates care, management, recovery and prognosis. Continue Accu-Cheks and sliding scale insulin coverage. Tube feeds will be continued. TIME: 38 minutes of critical care time, independent of procedures, was spent addressing the patient's acute combined respiratory failure, severe community-acquired pneumonia, acute kidney injury, indeterminate troponin, morbid obesity, review of all data and collaboration with the care team. ([id number]) Code Visit [id number]: [id number] Critical care first hour
[2018-05-27] MEDS: Ipratropium/Albuterol Sulfate 3 ML AMPUL.NEB INHALATION ×3 (07:18→18:30)
[2018-05-27 07:31] LABS: Bedside Glucose 360 mg/dL (70-110)
[2018-05-27] MEDS: Chlorhexidine 15 ML PO ×2 (08:44→21:52)
[2018-05-27] MEDS: Famotidine 20 MG Tablet GT (08:45)
--- NOTE | 2018-05-27 09:05 | PN_ITS ---
Patient Problems: Active and Suspected Problems Chest pain (Acute) CHF (congestive heart failure) (Acute) Pulmonary HTN (Acute) Acute respiratory failure with hypoxia (Acute) PNA (pneumonia) (Acute) Acute kidney injury (Acute) Subjective: The patient is a 57-year-old female admitted to the hospital with multilobar pneumonia and acute respiratory failure with hypoxemia and hypercapnia. Urine cultures positive for Klebsiella pneumoniae however she had 0 WBCs on the UA and I suspect this is contaminated clean catch. Legionella and streptococcal antigens were negative. The respiratory panel was negative. Sputum culture had mixed normal respiratory addison. Repeat sputum culture on 05/25/2018 has no growth to date. Enteric pathogen panel is pending. C. difficile was negative. Blood cultures had no growth. Dialysis catheter was inserted by Dr. Sinha on 05/26/2018 for acute oliguric renal failure and she had hemodialysis on 05/26/2018. Dr. Cervantes is following. Day #5 Zosyn and day# 2 Levaquin which has decreased the temp Day #4 ventilator All events the past 24 hours of been reviewed. T-max is 101.4 core. Current temp is 99.3 Currently heart rate is 58 with blood pressure of 91/65. FiO2 is now down to 60% and her pulse ox is 95% on the ventilator. Fluid balance on 05/26/2018 is +71.6 and overnight she is +1664. Urine output on 05/26/2018 was 35 cc and she had 20 cc overnight. All lab was personally reviewed. White blood cell count today is 6.6 with a normal differential. Hemoglobin is 12.1 and the platelets are normal. She is awake today and squeezed my hand on command. Looks at you when you call her name Does not appear to be in any distress Objective: General: Sedated with fentanyl and on the ventilator but awake today. Down to 60% and PEEP of 12 again. No accessory muscle use and not bucking the vent. Small cuff leak. HEENT: pupils equal and reactive, EOMI, Atraumatic, normocephalic, no scleral icterus, no carotid bruits, no JVD Lungs: CTA anterior and lateral today. no wheezing, no rhonchi. symmetric chest expansion, no secretions from the ETT Heart: RRR, no MM, no gallop, no rub, normal S1, normal S2, very distant heart sounds due to body habitus Abdomen: Soft, nondistended, bowel sounds present, no guarding with palpation, no masses, no hepatosplenomegaly, obese, tolerating TF at goal....2 BM's overnight and none this shift so far Extremities: improved Edema of the feet, no clubbing, no cyanosis, peripheral pulses normal Neuro: Cranial nerves II through XII grossly intact, Neuro grossly intact, no focal neurologic deficits Skin: Warm and dry, no wounds, no rashes, no jaundice, some excoriation in the skin folds Psych: can not evaluate due to intubation, squeezed my hand on command today......making eye contact, awake - Physical Exam Vital Signs Temp Pulse Resp BP Pulse Ox 99.3 F H 58 L 17 91/65 95 05/27/18 06:00 05/27/18 06:00 05/27/18 06:00 05/27/18 06:00 05/27/18 06:00 Oxygen Flow Rate (L/min) 11 Oxygen Delivery Method Mechanical Ventilator Weight: 305 lb 8.971 oz Body Mass Index (BMI) 49.7 Finger Stick Blood Glucose 283 Intake and Output for Last 24 Hours 05/25/18 05/26/18 05/27/18 23:59 23:59 23:59 Intake Total 1360 / 1360 2106.6 / 2106.6 1684.5 / 1684.5 Output Total 250 / 250 5 / 203 20 / 20 Balance 1110 / 1110 71.6 / 71.6 1664.5 / 1664.5 Microbiology Past 72 Hours 05/24/18 15:00 Gram Stain - Final Sputum, Induced/Lukens Respiratory Culture - Final 05/26/18 21:05 C. difficile DNA Amplification - Final Stool 05/25/18 13:25 Gram Stain - Final Sputum, Induced/Lukens Respiratory Culture - Preliminary Culture exhibits no growth. 05/23/18 15:10 Blood Culture - Preliminary Blood Culture (Wb) - Anticubital Right No growth in 48 hours. 05/23/18 15:10 Blood Culture - Preliminary Blood Culture (Wb) - Left Forearm No growth in 48 hours. 05/23/18 15:35 Urine Culture - Final Urine Catheter - Tovar Klebsiella pneumoniae sp pneum 05/23/18 18:52 Respiratory Panel (PCR) - Final Mucosa - Nose Laboratory Tests Past 24 Hrs 05/26/18 05/26/18 05/26/18 08:55 09:30 16:40 WBC RBC Hgb Hct MCV MCH MCHC RDW RDW Differential Plt Count MPV Immature Gran % (Auto) Neut % (Auto) Lymph % (Auto) [place] % (Auto) Eos % (Auto) Baso % (Auto) Absolute Neuts (auto) Absolute Lymphs (auto) Total Counted Specimen Type ART Sample Site L Radial pH 7.31 L Bicarbonate Actual 31.8 H POC Total CO2 34 Base Excess 6 H O2 Saturation 90 L O2 % 90 ABG pCO2 62.7 H ABG pO2 65 L Bk Test POS Respiration Rate 14 O2 Delivery Device Vent Minute Volume 7.00 Vent Mode A-C Tidal Volume 400 POC PEEP 14 Blood Gas Notified Whom ICU MD Blood Gas Notified Time 930 Sodium Potassium Chloride Carbon Dioxide Anion Gap BUN Creatinine Estim Creat Clear Calc Est GFR (MDRD) Af Amer Est GFR (MDRD) Non-Af BUN/Creatinine Ratio Glucose Calcium Phosphorus Magnesium Random Vancomycin 1.2 Hep Bs Antigen Pending Hep Bs Antibody Pending Hep B Core IgM Ab Pending 05/27/18 05/27/18 05:30 05:30 WBC 6.6 RBC 4.63 Hgb 12.1 Hct 37.9 MCV 81.9 MCH 26.1 L MCHC 31.9 L RDW 14.0 RDW Differential 42.0 Plt Count 171 MPV 10.2 Immature Gran % (Auto) 0.200 Neut % (Auto) 68.4 Lymph % (Auto) 22.2 [place] % (Auto) 8.3 Eos % (Auto) 0.3 Baso % (Auto) 0.6 Absolute Neuts (auto) 4.5 Absolute Lymphs (auto) 1.46 Total Counted Not Reportable Specimen Type Sample Site pH Bicarbonate Actual POC Total CO2 Base Excess O2 Saturation O2 % ABG pCO2 ABG pO2 Bk Test Respiration Rate O2 Delivery Device Minute Volume Vent Mode Tidal Volume POC PEEP Blood Gas Notified Whom Blood Gas Notified Time Sodium 137 Potassium 3.8 Chloride 96 L Carbon Dioxide 27.0 Anion Gap 14 BUN 47 H Creatinine 5.65 H Estim Creat Clear Calc 10.28 Est GFR (MDRD) Af Amer 10 L Est GFR (MDRD) Non-Af 8 L BUN/Creatinine Ratio 8.3 L Glucose 376 H Calcium 7.6 L Phosphorus 4.4 Magnesium 2.4 Random Vancomycin Hep Bs Antigen Hep Bs Antibody Hep B Core IgM Ab POC Glucose 05/27/18 05/27/18 05/26/18 06:04 01:09 16:49 POC Glucose 360 H 357 H 288 H Medical Necessity - Tobacco Use Smoking Status: Never smoker Tobacco Use: Non-smoker Assessment/Plan All Active Problems Chest pain (Acute) CHF (congestive heart failure) (Acute) Pulmonary HTN (Acute) Acute respiratory failure with hypoxia (Acute) PNA (pneumonia) (Acute) Acute kidney injury (Acute) S/P laparoscopic cholecystectomy (Acute) Gall bladder disease (Acute) Impressions 1. Acute respiratory failure with hypoxia and hypercapnia secondary to multilobar pneumonia -with negative Legionella and streptococcal antigens in the urine and a negative respiratory panel. Sputum has normal respiratory addison. The urine grew Klebsiella pneumoniae however on the UA there were 0 WBCs. Blood cultures had no growth. A repeat sputum was sent on 05/25/2018 and has only 1+ white blood cells with no organisms and there has been no growth. Levaquin added on 05/26 for persistent fevers on Zosyn. No eos on the differential 2. Morbid obesity 3. Uncontrolled diabetes mellitus-hemoglobin A1c is 12.5. 4. Indeterminate troponin at admission-likely secondary to demand ischemia related to pneumonia and acute respiratory failure. 5. Pulmonary hypertension -estimated pulmonary artery systolic pressure on echocardiogram in 2013 was 44 and I suspect it is likely higher now 6. Sleep disordered breathing-suspect ERICK vs obesity hypoventilation syndrome 7. Anxiety/depression/PTSD/histrionic personality disorder complicate care management and prognosis 8. ARF - HD on 05/26/18 W/U for autoimmune causes of CXR findings and renal failure ordered by Dr. Cervantes and the results are pending adjust the insulin regimen recheck the lab in the AM Dr. Cervantes to determine HD schedule Levaquin dose adjusted for renal failure Decrease MiraLAX to once daily and if she is having diarrhea will discontinue recheck lab in the AM CXR in the AM Continue aerosolized bronchodilators Continue heparin subcu for DVT prophylaxis Continue Pepcid for GI prophylaxis Continue Zosyn and Levaquin wean the PEEP to 10 if she can maintain the sats Code Visit Inpatient E&M: [id number] [facility] Hosp L3
[2018-05-27] MEDS: Vital AF 1.2 Cal Liquid 1,000 ML 60 ML GT (09:30)
--- NOTE | 2018-05-27 10:30 | PCM.PN.BLA ---
Progress Note Patient still intubated, but less support required Dialysis yesterday successful. Site appears clean, no bleeding noted. Continue care as per medicine service.
[2018-05-27 11:51] LABS: Bedside Glucose 311 mg/dL (70-110)
[2018-05-27 14:16] LABS: Bedside Glucose 321 mg/dL (70-110)
[2018-05-27 16:22] LABS: Bedside Glucose 247 mg/dL (70-110)
--- NOTE | 2018-05-27 16:44 | DIALYSIS ---
Hemodialysis x 3 hours, 3k+ bath, -2200ml off. stable t/o. tolerated well. CVC CHG dressing d/i. CVC closed with heparin to each lumen fill volume. Report to Kaylan MONTOYA. Dr Billy townsend.
--- NOTE | 2018-05-27 16:49 | PN.RENAL_ITS ---
Patient Problems: Active and Suspected Problems Chest pain (Acute) CHF (congestive heart failure) (Acute) Pulmonary HTN (Acute) Acute respiratory failure with hypoxia (Acute) PNA (pneumonia) (Acute) Acute kidney injury (Acute) Subjective: Patient had her second session of hemodialysis today. Remains anuric. Remains intubated with FiO2 60%. Not on any pressor. Open her eyes spontaneously - Physical Exam General: Alert, No apparent distress HEENT: Atraumatic Oral: Moist Mucosa Neck: Supple, No JVD Lungs: Clear to auscultation, Normal air movement, No rhonchi Cardiovascular: Regular rate, Regular Rhythm, Normal S1, Normal S2 Abdomen: Bowel Sounds Present, Soft, Non Tender Extremities: No clubbing, No cyanosis, No edema Musculoskeletal: No Tenderness to Palpation of Joints or Extremities Lymphatic: No Cervical, Supraclavicular, or Inguinal Adenopathy Psych/Mental Status: Appropriate Vital Signs Temp Pulse Resp BP Pulse Ox 98.2 F 74 15 100/82 H 87 05/27/18 16:15 05/27/18 16:15 05/27/18 16:15 05/27/18 16:15 05/27/18 13:20 Oxygen Flow Rate (L/min) 11 Oxygen Delivery Method Mechanical Ventilator Weight: 138.6 kg Body Mass Index (BMI) 49.7 Finger Stick Blood Glucose 150 Intake and Output for Last 24 Hours 05/25/18 05/26/18 05/27/18 23:59 23:59 23:59 Intake Total 1360 / 1360 2106.6 / 2106.6 2429.5 / 2429.5 Output Total 250 / 250 2035 / 2035 2220 / 2220 Balance 1110 / 1110 71.6 / 71.6 209.5 / 209.5 Microbiology Past 72 Hours 05/26/18 00:05 Enteric Bacteriology - Final Stool 05/25/18 13:25 Gram Stain - Final Sputum, Induced/Lukens Respiratory Culture - Final Yeast, not Selin albicans 05/24/18 15:00 Gram Stain - Final Sputum, Induced/Lukens Respiratory Culture - Final 05/26/18 21:05 C. difficile DNA Amplification - Final Stool 05/23/18 15:10 Blood Culture - Preliminary Blood Culture (Wb) - Anticubital Right No growth in 48 hours. 05/23/18 15:10 Blood Culture - Preliminary Blood Culture (Wb) - Left Forearm No growth in 48 hours. 05/23/18 15:35 Urine Culture - Final Urine Catheter - Tovar Klebsiella pneumoniae sp pneum Laboratory Tests Past 24 Hrs 05/26/18 05/27/18 05/27/18 16:40 05:30 05:30 WBC 6.6 RBC 4.63 Hgb 12.1 Hct 37.9 MCV 81.9 MCH 26.1 L MCHC 31.9 L RDW 14.0 RDW Differential 42.0 Plt Count 171 MPV 10.2 Immature Gran % (Auto) 0.200 Neut % (Auto) 68.4 Lymph % (Auto) 22.2 [place] % (Auto) 8.3 Eos % (Auto) 0.3 Baso % (Auto) 0.6 Absolute Neuts (auto) 4.5 Absolute Lymphs (auto) 1.46 Total Counted Not Reportable Sodium 137 Potassium 3.8 Chloride 96 L Carbon Dioxide 27.0 Anion Gap 14 BUN 47 H Creatinine 5.65 H Estim Creat Clear Calc 10.28 Est GFR (MDRD) Af Amer 10 L Est GFR (MDRD) Non-Af 8 L BUN/Creatinine Ratio 8.3 L Glucose 376 H Calcium 7.6 L Phosphorus 4.4 Magnesium 2.4 Hep Bs Antigen Pending Hep Bs Antibody Pending Hep B Core IgM Ab Pending POC Glucose 05/27/18 05/27/18 05/27/18 16:16 14:10 11:46 POC Glucose 247 H 321 H 311 H 05/27/18 05/27/18 05/26/18 06:04 01:09 16:49 POC Glucose 360 H 357 H 288 H Medical Necessity - Tobacco Use Smoking Status: Never smoker Tobacco Use: Non-smoker Assessment/Plan All Active Problems Chest pain (Acute) CHF (congestive heart failure) (Acute) Pulmonary HTN (Acute) Acute respiratory failure with hypoxia (Acute) PNA (pneumonia) (Acute) Acute kidney injury (Acute) S/P laparoscopic cholecystectomy (Acute) Gall bladder disease (Acute) 1-Acute kidney injury. Normal creatinine 2014. Patient presented with creatinine 1.07 mg/dL. UA showed 100 protein and 100 blood but no RBCs or white cell count. Acute kidney injury is most probably related ATN Another possibility with this UA finding is glomera nephritis. I will check for Goodpasture's syndrome and another GN nephritic etiology. No recovery of kidney function. Remains anuric Patient was started on hemodialysis on May 26. Patient had her second session today. I will reevaluate the patient for hemodialysis tomorrow Zosyn is appropriately dosed for the current kidney function level. Continue to monitor for kidney function recovery 2-Acute respiratory failure from bilateral pneumonia. Ventilator support as per the hospital nursing assistant. [id number] pneumonia. Abx as per the ICU/Primary service Thank you for the consult. Renal team will continue to follow. Please call with any question or concern at my cell phone #[phone]
[2018-05-27 22:11] LABS: Bedside Glucose 223 mg/dL (70-110)
[2018-05-28] VITALS (35 sets, daily range): BP systolic 85–122; BP diastolic 56–70; PULSE 37–116; RESP 8–24; TEMP 37.2–37.6; O2SAT 17–96
[2018-05-28] MEDS: Insulin Lispro 100 UNIT/ML INSULN.PEN SC ×5 (02:35→21:07)
[2018-05-28 02:41] LABS: Bedside Glucose 247 mg/dL (70-110)
[2018-05-28] MEDS: Heparin Injection (Vial) 5,000 UNIT/ML VIAL 5000 UNIT SC ×3 (05:22→20:56)
[2018-05-28] MEDS: Vital AF 1.2 Cal Liquid 1,000 ML 60 ML GT ×2 (05:22→23:32)
[2018-05-28] MEDS: Nystatin Powder 15gm Bottle 1 APPLIC TOPICAL ×3 (05:23→20:57)
[2018-05-28 05:24] LABS: Absolute Lymphocyte Count 1.59 X10^3/ul (0.83-4.51); Absolute Neutrophil Count 4.7 X10^3/uL (2.0-7.7); Basophil# 0.04 X10^3/uL; Basophil% 0.6 % (0-1); Eosinophils% 1.4 % (0-5); Hematocrit 37.4 % (37-47); Hemoglobin 12.3 g/dl (12.0-15.0); Lymphocyte # 1.59 X10^3/ul (4.0); Lymphocyte % 22.8 % (19-41); Mean Corp Hgb Conc 32.9 g/gl (32-36); Mean Corpuscular Hgb 26.5 pg (27.0-32.0); Mean Corpuscular Volume 80.4 fL (81-99); Mean Platelet Vol. 10.3 fl (6.2-12.0); Monocyte# 0.49 X10^3/uL; Neutrophil # 4.72 X10^3/uL (2.7-7.7); Neutrophil % 67.9 % (47-70); Platelet Count 194 K/mm3 (150-450); RBC Distribution Width CV 14.1 % (11.6-14.6); RBC Distribution Width SD 40.9 fl (35.1-43.9); Red Blood Count 4.65 M/mm3 (4.2-5.4)
[2018-05-28 05:26] LABS: Differential Indicated SCAN CRITERIA MET; POSITIVE COUNT NO; POSITIVE DIFFERENTIAL NO; POSITIVE MORPHOLOGY YES
[2018-05-28 05:27] LABS: International Normalized Ratio 1.1; Prothrombin Time (Protime)PT. 14.2 SECONDS (11.7-14.9)
[2018-05-28 05:33] LABS: ALB/GLOB Ratio 0.4 RATIO (0.9-2.4); AST(SGOT) 26 U/L (15-37); Alanine Aminotransfer ALT/SGPT 28 U/L (13-56); Albumin, Serum 1.8 g/dL (3.2-5.0); Alkaline Phosphatase 129 U/L (45-117); Anion Gap 15 (5-15); BUN 44 mg/dL (7-18); Calcium,Total 7.9 mg/dL (8.5-10.1); Chloride 98 mmol/L (98-107); Creatinine, Serum 5.48 mg/dL (0.55-1.02); EST Glomerular Filtration Rate 9 mL/min (>60); Est Glom Filt Rate - Afr Amer 10 mL/min (>60); Globulin 4.7 g/dL (2.2-4.2); Glucose 258 mg/dL (74-106); Magnesium 2.3 mg/dL (1.6-2.6); Potassium 3.7 mmol/L (3.5-5.1); Protein, Total 6.5 g/dL (6.4-8.2); Sodium Level 139 mmol/L (136-145)
--- NOTE | 2018-05-28 05:55 | RAD_ITS ---
HISTORY: PNEUMONIA, SOB EXAM:XR Chest 1 View: Portable COMPARISON: 05/26/2018 FINDINGS: LINES/DEVICES: The endotracheal tube, NG tube, and right subclavian central venous line appear unchanged in position. Stable heart size. Right lung infiltrates and left basilar infiltrate, unchanged. No pneumothorax. RAD/Chest 1 View (Portable) IMPRESSION: Stable findings. Persistent bilateral pulmonary infiltrates, larger on the right. at 0514 Reported and signed by: West Saini MD Electronically Signed: West Saini, at 5:13 EST Tel , Service support ,
[2018-05-28] MEDS: fentaNYL drip 100 ML 15 MCG IV ×4 (06:08→22:35)
[2018-05-28 06:21] LABS: Bedside Glucose 224 mg/dL (70-110)
[2018-05-28] MEDS: Ipratropium/Albuterol Sulfate 3 ML AMPUL.NEB INHALATION ×3 (06:36→18:38)
--- NOTE | 2018-05-28 08:44 | PN_ITS ---
Subjective: Patient did okay overnight. Patient continues to have loose stools, but was C. difficile negative in the past. Patient did not tolerate spontaneous awakening trial well this morning, but has had some improvement in oxygenation overnight. Patient was able to tolerate hemodialysis yesterday. Tolerating tube feeds well. Objective: Chest x-ray shows improvement in bilateral infiltrates. General: No apparent distress, - - Morbidly obese. RASS -2. Good vent synchrony noted. HEENT: Atraumatic, PERRLA, EOMI, Normocephalic, - - No scleral icterus or injection noted. Oral: Moist Mucosa, No Gingival or Mucosal Lesions/ Ulcerations Neck: Supple, No JVD, No Nodes, Trachea Midline Lungs: No rhonchi, No wheeze, Diminished, Rales, - - Symmetric expansion. No dullness to percussion. Cardiovascular: Regular rate, Regular Rhythm, Normal S1, Normal S2, No murmurs, No rub noted, No Gallop, - - Right subclavian dialysis catheter Abdomen: Bowel Sounds Present, Soft, Non Tender, Non-Distended, Obese Extremities: No clubbing, No cyanosis, Edema Skin: No rashes, No breakdown Musculoskeletal: No Tenderness to Palpation of Joints or Extremities Lymphatic: No Cervical, Supraclavicular, or Inguinal Adenopathy Neurological: Neuro grossly intact Psych/Mental Status: Flat Affect Vital Signs Temp Pulse Resp BP Pulse Ox 37.4 C H 65 16 94/59 L 88 05/28/18 08:00 05/28/18 08:00 05/28/18 08:00 05/28/18 08:00 05/28/18 08:00 Oxygen Flow Rate (L/min) 11 Oxygen Delivery Method Mechanical Ventilator Weight: 138.8 kg Body Mass Index (BMI) 49.7 Finger Stick Blood Glucose 150 Intake and Output for Last 24 Hours 05/26/18 05/27/18 05/28/18 23:59 23:59 23:59 Intake Total 2106.6 / 2106.6 3054.5 / 3054.5 1198 / 1198 Output Total 2034 / 2034 2224 / 2224 Balance 71.6 / 71.6 829.5 / 829.5 1178 / 1178 Labs (Last 48 Hours) 05/26/18 05/26/18 05/26/18 08:55 09:30 16:40 WBC RBC Hgb Hct MCV MCH MCHC RDW RDW Differential Plt Count MPV Immature Gran % (Auto) Neut % (Auto) Lymph % (Auto) [place] % (Auto) Eos % (Auto) Baso % (Auto) Absolute Neuts (auto) Absolute Lymphs (auto) Total Counted PT INR Specimen Type ART Sample Site L Radial pH 7.31 L Bicarbonate Actual 31.8 H POC Total CO2 34 Base Excess 6 H O2 Saturation 90 L O2 % 90 ABG pCO2 62.7 H ABG pO2 65 L Bk Test POS Respiration Rate 14 O2 Delivery Device Vent Minute Volume 7.00 Vent Mode A-C Tidal Volume 400 POC PEEP 14 Blood Gas Notified Whom ICU MD Blood Gas Notified Time 930 Sodium Potassium Chloride Carbon Dioxide Anion Gap BUN Creatinine Estim Creat Clear Calc Est GFR (MDRD) Af Amer Est GFR (MDRD) Non-Af BUN/Creatinine Ratio Glucose Calcium Phosphorus Magnesium Total Bilirubin AST ALT Alkaline Phosphatase Total Protein Albumin Globulin Albumin/Globulin Ratio Random Vancomycin 1.2 Hep Bs Antigen Pending Hep Bs Antibody Pending Hep B Core IgM Ab Pending POC Glucose 05/26/18 05/27/18 05/27/18 16:49 01:09 05:30 WBC 6.6 RBC 4.63 Hgb 12.1 Hct 37.9 MCV 81.9 MCH 26.1 L MCHC 31.9 L RDW 14.0 RDW Differential 42.0 Plt Count 171 MPV 10.2 Immature Gran % (Auto) 0.200 Neut % (Auto) 68.4 Lymph % (Auto) 22.2 [place] % (Auto) 8.3 Eos % (Auto) 0.3 Baso % (Auto) 0.6 Absolute Neuts (auto) 4.5 Absolute Lymphs (auto) 1.46 Total Counted Not Reportable PT INR Specimen Type Sample Site pH Bicarbonate Actual POC Total CO2 Base Excess O2 Saturation O2 % ABG pCO2 ABG pO2 Bk Test Respiration Rate O2 Delivery Device Minute Volume Vent Mode Tidal Volume POC PEEP Blood Gas Notified Whom Blood Gas Notified Time Sodium Potassium Chloride Carbon Dioxide Anion Gap BUN Creatinine Estim Creat Clear Calc Est GFR (MDRD) Af Amer Est GFR (MDRD) Non-Af BUN/Creatinine Ratio Glucose Calcium Phosphorus Magnesium Total Bilirubin AST ALT Alkaline Phosphatase Total Protein Albumin Globulin Albumin/Globulin Ratio Random Vancomycin Hep Bs Antigen Hep Bs Antibody Hep B Core IgM Ab POC Glucose 288 H 357 H 05/27/18 05/27/18 05/27/18 05:30 06:04 11:46 WBC RBC Hgb Hct MCV MCH MCHC RDW RDW Differential Plt Count MPV Immature Gran % (Auto) Neut % (Auto) Lymph % (Auto) [place] % (Auto) Eos % (Auto) Baso % (Auto) Absolute Neuts (auto) Absolute Lymphs (auto) Total Counted PT INR Specimen Type Sample Site pH Bicarbonate Actual POC Total CO2 Base Excess O2 Saturation O2 % ABG pCO2 ABG pO2 Bk Test Respiration Rate O2 Delivery Device Minute Volume Vent Mode Tidal Volume POC PEEP Blood Gas Notified Whom Blood Gas Notified Time Sodium 137 Potassium 3.8 Chloride 96 L Carbon Dioxide 27.0 Anion Gap 14 BUN 47 H Creatinine 5.65 H Estim Creat Clear Calc 10.28 Est GFR (MDRD) Af Amer 10 L Est GFR (MDRD) Non-Af 8 L BUN/Creatinine Ratio 8.3 L Glucose 376 H Calcium 7.6 L Phosphorus 4.4 Magnesium 2.4 Total Bilirubin AST ALT Alkaline Phosphatase Total Protein Albumin Globulin Albumin/Globulin Ratio Random Vancomycin Hep Bs Antigen Hep Bs Antibody Hep B Core IgM Ab POC Glucose 360 H 311 H 05/27/18 05/27/18 05/27/18 14:10 16:16 21:49 WBC RBC Hgb Hct MCV MCH MCHC RDW RDW Differential Plt Count MPV Immature Gran % (Auto) Neut % (Auto) Lymph % (Auto) [place] % (Auto) Eos % (Auto) Baso % (Auto) Absolute Neuts (auto) Absolute Lymphs (auto) Total Counted PT INR Specimen Type Sample Site pH Bicarbonate Actual POC Total CO2 Base Excess O2 Saturation O2 % ABG pCO2 ABG pO2 Bk Test Respiration Rate O2 Delivery Device Minute Volume Vent Mode Tidal Volume POC PEEP Blood Gas Notified Whom Blood Gas Notified Time Sodium Potassium Chloride Carbon Dioxide Anion Gap BUN Creatinine Estim Creat Clear Calc Est GFR (MDRD) Af Amer Est GFR (MDRD) Non-Af BUN/Creatinine Ratio Glucose Calcium Phosphorus Magnesium Total Bilirubin AST ALT Alkaline Phosphatase Total Protein Albumin Globulin Albumin/Globulin Ratio Random Vancomycin Hep Bs Antigen Hep Bs Antibody Hep B Core IgM Ab POC Glucose 321 H 247 H 223 H 05/28/18 05/28/18 05/28/18 02:32 05:00 05:00 WBC 7.0 RBC 4.65 Hgb 12.3 Hct 37.4 MCV 80.4 L MCH 26.5 L MCHC 32.9 RDW 14.1 RDW Differential 40.9 Plt Count 194 MPV 10.3 Immature Gran % (Auto) 0.300 Neut % (Auto) 67.9 Lymph % (Auto) 22.8 [place] % (Auto) 7.0 Eos % (Auto) 1.4 Baso % (Auto) 0.6 Absolute Neuts (auto) 4.7 Absolute Lymphs (auto) 1.59 Total Counted Not Reportable PT INR Specimen Type Sample Site pH Bicarbonate Actual POC Total CO2 Base Excess O2 Saturation O2 % ABG pCO2 ABG pO2 Bk Test Respiration Rate O2 Delivery Device Minute Volume Vent Mode Tidal Volume POC PEEP Blood Gas Notified Whom Blood Gas Notified Time Sodium 139 Potassium 3.7 Chloride 98 Carbon Dioxide 26.0 Anion Gap 15 BUN 44 H Creatinine 5.48 H Estim Creat Clear Calc 10.60 Est GFR (MDRD) Af Amer 10 L Est GFR (MDRD) Non-Af 9 L BUN/Creatinine Ratio 8.0 L Glucose 258 H Calcium 7.9 L Phosphorus 4.0 Magnesium 2.3 Total Bilirubin 0.30 AST 26 ALT 28 Alkaline Phosphatase 129 H Total Protein 6.5 Albumin 1.8 L Globulin 4.7 H Albumin/Globulin Ratio 0.4 L Random Vancomycin Hep Bs Antigen Hep Bs Antibody Hep B Core IgM Ab POC Glucose 247 H 05/28/18 05/28/18 05:00 06:06 WBC RBC Hgb Hct MCV MCH MCHC RDW RDW Differential Plt Count MPV Immature Gran % (Auto) Neut % (Auto) Lymph % (Auto) [place] % (Auto) Eos % (Auto) Baso % (Auto) Absolute Neuts (auto) Absolute Lymphs (auto) Total Counted PT 14.2 INR 1.1 Specimen Type Sample Site pH Bicarbonate Actual POC Total CO2 Base Excess O2 Saturation O2 % ABG pCO2 ABG pO2 Bk Test Respiration Rate O2 Delivery Device Minute Volume Vent Mode Tidal Volume POC PEEP Blood Gas Notified Whom Blood Gas Notified Time Sodium Potassium Chloride Carbon Dioxide Anion Gap BUN Creatinine Estim Creat Clear Calc Est GFR (MDRD) Af Amer Est GFR (MDRD) Non-Af BUN/Creatinine Ratio Glucose Calcium Phosphorus Magnesium Total Bilirubin AST ALT Alkaline Phosphatase Total Protein Albumin Globulin Albumin/Globulin Ratio Random Vancomycin Hep Bs Antigen Hep Bs Antibody Hep B Core IgM Ab POC Glucose 224 H Microbiology 05/26/18 00:05 Stool Enteric Bacteriology - Final 05/25/18 13:25 Sputum, Induced/Lukens Gram Stain - Final 05/25/18 13:25 Sputum, Induced/Lukens Respiratory Culture - Final Yeast, not Selin albicans 05/24/18 15:00 Sputum, Induced/Lukens Gram Stain - Final 05/24/18 15:00 Sputum, Induced/Lukens Respiratory Culture - Final 05/26/18 21:05 Stool C. difficile DNA Amplification - Final Clinical Impression(s) from Imaging Studies Chest X-Ray 05/28/18 05:55 IMPRESSION: Stable findings. Persistent bilateral pulmonary infiltrates, larger on the right. at 0514 Reported and signed by: West Saini MD Electronically Signed: West Saini, at 5:13 EST Tel , Service support , Medical Necessity - Tobacco Use Smoking Status: Never smoker Tobacco Use: Non-smoker Assessment/Plan All Active Problems Chest pain (Acute) CHF (congestive heart failure) (Acute) Pulmonary HTN (Acute) Acute respiratory failure with hypoxia (Acute) PNA (pneumonia) (Acute) Acute kidney injury (Acute) S/P laparoscopic cholecystectomy (Acute) Gall bladder disease (Acute) RECOMMENDATIONS: 1. Continue antibiotics as ordered. 2. Respiratory to preferentially wean FiO2 today goal of 40%, then wean PEEP 3. Continue hemodialysis per nephrology recommendations. 4. Continue tube feeds as ordered. 5. Continue current sedation regimen with plans to maintain a RASS of -1. 6. Continue appropriate ICU prophylaxis IMPRESSIONS: 1. Acute combined respiratory failure secondary to severe community-acquired pneumonia Patient appears to be responding to therapy. Patient has had volume removal with hemodialysis. Oxygen status precludes spontaneous breathing trial at this time. Will attempt to continue to wean FiO2, then PEEP as tolerated. Pulmonary recruitment vein be an issue given her body habitus. Patient appears to have responded well to broadening of antibiotics 2. Acute kidney injury Likely secondary to ATN, as the patient was initially diuresed on admission to the hospital and also developed a component of hypotension on arrival to the ICU. Nephrology is currently following. The patient did undergo hemodialysis yesterday with 2 L of fluid removed. Hemodialysis support will be continued per nephrology recommendations. 3. Indeterminate troponin/acute on chronic diastolic heart failure Echocardiogram revealed no wall motion abnormalities. Patient with diastolic abnormalities noted on echocardiogram. Complicated by renal function, but patient appears to be responding well to volume removal. 4. Morbid obesity/diabetes mellitus/anxiety/depression/PTSD Complicates care, management, recovery and prognosis. Continue Accu-Cheks and sliding scale insulin coverage. Tube feeds will be continued. TIME: 38 minutes of critical care time, independent of procedures, was spent addressing the patient's acute combined respiratory failure, severe community- acquired pneumonia, acute kidney injury, indeterminate troponin, morbid obesity, review of all data and collaboration with the care team. (7:30 AM to 8:50 AM) Code Visit [id number]: [id number] Critical care first hour
[2018-05-28] MEDS: levoFLOXacin IV 500 MG/100 ML BAG 100 MG IV (08:50)
[2018-05-28] MEDS: CHLORHEXIDINE GLUC 2% CLOTH 1 EACH TOWELETTE TOPICAL (08:52)
[2018-05-28] MEDS: Chlorhexidine 15 ML PO ×2 (08:52→20:57)
[2018-05-28] MEDS: Famotidine 20 MG Tablet GT ×2 (08:58→20:56)
[2018-05-28] MEDS: Polyethylene Glycol 3350 17 GM PACKET GT (08:59)
--- NOTE | 2018-05-28 09:06 | PN.RENAL_ITS ---
Patient Problems: Active and Suspected Problems Chest pain (Acute) CHF (congestive heart failure) (Acute) Pulmonary HTN (Acute) Acute respiratory failure with hypoxia (Acute) PNA (pneumonia) (Acute) Acute kidney injury (Acute) Subjective: Patient remains intubated and sedated. Anuric. FiO2 50%. Cannot do review of system - Physical Exam General: Lethargic HEENT: Atraumatic Oral: Moist Mucosa Neck: Supple, No JVD Lungs: Rhonchi Abdomen: Bowel Sounds Present, Soft, Non Tender Extremities: No clubbing, No cyanosis, No edema Skin: No rashes Lymphatic: No Cervical, Supraclavicular, or Inguinal Adenopathy Psych/Mental Status: - - sedated Vital Signs Temp Pulse Resp BP Pulse Ox 99.4 F H 65 16 94/59 L 88 05/28/18 08:00 05/28/18 08:00 05/28/18 08:00 05/28/18 08:00 05/28/18 08:00 Oxygen Flow Rate (L/min) 11 Oxygen Delivery Method Mechanical Ventilator Weight: 138.8 kg Body Mass Index (BMI) 49.7 Finger Stick Blood Glucose 150 Intake and Output for Last 24 Hours 05/26/18 05/27/18 05/28/18 23:59 23:59 23:59 Intake Total 2106.6 / 2106.6 3054.5 / 3054.5 1198 / 1198 Output Total 2035 / 2035 2225 / 2225 20 / Balance 71.6 / 71.6 829.5 / 829.5 1178 / 1178 Microbiology Past 72 Hours 05/26/18 00:05 Enteric Bacteriology - Final Stool 05/25/18 13:25 Gram Stain - Final Sputum, Induced/Lukens Respiratory Culture - Final Yeast, not Selin albicans 05/24/18 15:00 Gram Stain - Final Sputum, Induced/Lukens Respiratory Culture - Final 05/26/18 21:05 C. difficile DNA Amplification - Final Stool 05/23/18 15:10 Blood Culture - Preliminary Blood Culture (Wb) - Anticubital Right No growth in 48 hours. 05/23/18 15:10 Blood Culture - Preliminary Blood Culture (Wb) - Left Forearm No growth in 48 hours. 05/23/18 15:35 Urine Culture - Final Urine Catheter - Tovar Klebsiella pneumoniae sp pneum Laboratory Tests Past 24 Hrs 05/28/18 05/28/18 05/28/18 05:00 05:00 05:00 WBC 7.0 RBC 4.65 Hgb 12.3 Hct 37.4 MCV 80.4 L MCH 26.5 L MCHC 32.9 RDW 14.1 RDW Differential 40.9 Plt Count 194 MPV 10.3 Immature Gran % (Auto) 0.300 Neut % (Auto) 67.9 Lymph % (Auto) 22.8 [place] % (Auto) 7.0 Eos % (Auto) 1.4 Baso % (Auto) 0.6 Absolute Neuts (auto) 4.7 Absolute Lymphs (auto) 1.59 Total Counted Not Reportable PT 14.2 INR 1.1 Sodium 139 Potassium 3.7 Chloride 98 Carbon Dioxide 26.0 Anion Gap 15 BUN 44 H Creatinine 5.48 H Estim Creat Clear Calc 10.60 Est GFR (MDRD) Af Amer 10 L Est GFR (MDRD) Non-Af 9 L BUN/Creatinine Ratio 8.0 L Glucose 258 H Calcium 7.9 L Phosphorus 4.0 Magnesium 2.3 Total Bilirubin 0.30 AST 26 ALT 28 Alkaline Phosphatase 129 H Total Protein 6.5 Albumin 1.8 L Globulin 4.7 H Albumin/Globulin Ratio 0.4 L POC Glucose 05/28/18 05/28/18 05/27/18 06:06 02:32 21:49 POC Glucose 224 H 247 H 223 H 05/27/18 05/27/18 05/27/18 16:16 14:10 11:46 POC Glucose 247 H 321 H 311 H Medical Necessity - Tobacco Use Smoking Status: Never smoker Tobacco Use: Non-smoker Assessment/Plan All Active Problems Chest pain (Acute) CHF (congestive heart failure) (Acute) Pulmonary HTN (Acute) Acute respiratory failure with hypoxia (Acute) PNA (pneumonia) (Acute) Acute kidney injury (Acute) S/P laparoscopic cholecystectomy (Acute) Gall bladder disease (Acute) 1-Acute kidney injury. Normal creatinine 2014. Patient presented with creatini ne 1.07 mg/dL. UA showed 100 protein and 100 blood but no RBCs or white cell count. Acute kidney injury is most probably related ATN Another possibility with this UA finding is glomera nephritis. I will check for Goodpasture's syndrome and another GN nephritic etiology ( lab still pending). No recovery of kidney function. Remains anuric Patient was started on hemodialysis on May 26. I will arrange for the first session today Zosyn is appropriately dosed for the current kidney function level. Continue to monitor for kidney function recovery 2-Acute respiratory failure from bilateral pneumonia. Ventilator support as per the health and wellness sales consultant. [id number] pneumonia. Abx as per the ICU/Primary service Thank you for the consult. Renal team will continue to follow. Please call with any question or concern at my cell phone #[phone]
[2018-05-28 09:11] LABS: Bedside Glucose 253 mg/dL (70-110)
--- NOTE | 2018-05-28 09:56 | PN_ITS ---
Patient Problems: Active and Suspected Problems Chest pain (Acute) Acute respiratory failure with hypoxia (Acute) PNA (pneumonia) (Acute) Acute kidney injury (Acute) Subjective: Chief complaint: Follow-up after admission for severe community-acquired pneumonia complicated by acute hypoxic and hypercapnic respiratory failure as we ll as acute renal failure, acute on chronic diastolic CHF and indeterminate troponin. Patient seen and examined. No acute events overnight. She is opening her eyes spontaneously, not following commands. She failed spontaneous breathing trial this morning. She was started on dialysis for worsening kidney function and she has been tolerating tube feeds. Maximum temperature over the last 24 hours was 99.6 Fahrenheit, blood pressure and heart rate were stable, remained on mechanical ventilation. - Physical Exam General: Alert, Cooperative, No apparent distress, - - Spontaneous eye opening, on mechanical ventilation. HEENT: Atraumatic, PERRLA, EOMI, Normocephalic Oral: Moist Mucosa, No Gingival or Mucosal Lesions/ Ulcerations Neck: Supple, No JVD, Negative Carotid Bruits, Trachea Midline, Thyroid Normal Size and Texture Lungs: No rales, Diminished, Rhonchi, Wheezes, - - Decreased sounds bilateral, bilateral rhonchi. Cardiovascular: Regular rate, Regular Rhythm, Normal S1, Normal S2, No murmurs, PMI Normal Abdomen: Bowel Sounds Present, Soft, Non Tender, Non-Distended, No Hepato- splenomegaly, Obese Extremities: No clubbing, No cyanosis, Edema Skin: No rashes, No breakdown Lymphatic: No Cervical, Supraclavicular, or Inguinal Adenopathy Neurological: Cranial nerves II-XII grossly intact, Neuro grossly intact Psych/Mental Status: Flat Affect Vital Signs Temp Pulse Resp BP Pulse Ox 99.3 F H 66 16 102/67 89 05/28/18 09:00 05/28/18 09:00 05/28/18 09:00 05/28/18 09:00 05/28/18 09:00 Oxygen Flow Rate (L/min) 11 Oxygen Delivery Method Mechanical Ventilator Weight: 306 lb 0.026 oz Body Mass Index (BMI) 49.7 Finger Stick Blood Glucose 150 Intake and Output for Last 24 Hours 05/26/18 05/27/18 05/28/18 23:59 23:59 23:59 Intake Total 2106.6 / 2106.6 3054.5 / 3054.5 1198 / 1198 Output Total 2035 / 2035 2225 / 2224 Balance 71.6 / 71.6 829.5 / 829.5 1178 / 1178 Microbiology Past 72 Hours 05/26/18 00:05 Enteric Bacteriology - Final Stool 05/25/18 13:25 Gram Stain - Final Sputum, Induced/Lukens Respiratory Culture - Final Yeast, not Selin albicans 05/24/18 15:00 Gram Stain - Final Sputum, Induced/Lukens Respiratory Culture - Final 05/26/18 21:05 C. difficile DNA Amplification - Final Stool 05/23/18 15:10 Blood Culture - Preliminary Blood Culture (Wb) - Anticubital Right No growth in 48 hours. 05/23/18 15:10 Blood Culture - Preliminary Blood Culture (Wb) - Left Forearm No growth in 48 hours. 05/23/18 15:35 Urine Culture - Final Urine Catheter - Tovar Klebsiella pneumoniae sp pneum Laboratory Tests Past 24 Hrs 05/28/18 05/28/18 05/28/18 05:00 05:00 05:00 WBC 7.0 RBC 4.65 Hgb 12.3 Hct 37.4 MCV 80.4 L MCH 26.5 L MCHC 32.9 RDW 14.1 RDW Differential 40.9 Plt Count 194 MPV 10.3 Immature Gran % (Auto) 0.300 Neut % (Auto) 67.9 Lymph % (Auto) 22.8 [place] % (Auto) 7.0 Eos % (Auto) 1.4 Baso % (Auto) 0.6 Absolute Neuts (auto) 4.7 Absolute Lymphs (auto) 1.59 Total Counted Not Reportable PT 14.2 INR 1.1 Sodium 139 Potassium 3.7 Chloride 98 Carbon Dioxide 26.0 Anion Gap 15 BUN 44 H Creatinine 5.48 H Estim Creat Clear Calc 10.60 Est GFR (MDRD) Af Amer 10 L Est GFR (MDRD) Non-Af 9 L BUN/Creatinine Ratio 8.0 L Glucose 258 H Calcium 7.9 L Phosphorus 4.0 Magnesium 2.3 Total Bilirubin 0.30 AST 26 ALT 28 Alkaline Phosphatase 129 H Total Protein 6.5 Albumin 1.8 L Globulin 4.7 H Albumin/Globulin Ratio 0.4 L POC Glucose 05/28/18 05/28/18 05/28/18 09:04 06:06 02:32 POC Glucose 253 H 224 H 247 H 05/27/18 05/27/18 05/27/18 21:49 16:16 14:10 POC Glucose 223 H 247 H 321 H 05/27/18 11:46 POC Glucose 311 H Clinical Impression(s) from Imaging Studies Chest X-Ray 05/23/18 15:15 IMPRESSION: Findings suggestive CHF with superimposed atelectasis and/or infiltrate in the right midlung. Electronically Signed: Royer Rowe MD at 15:56 EST , Service support , Chest X-Ray 05/24/18 10:30 IMPRESSION: Findings consistent with CHF. This appears worsening with areas of consolidation at the left lung base. Electronically Signed: Michael Braxton DO at 17:08 EST Tel [phone], Service support , KUB X-Ray 05/24/18 14:46 IMPRESSION: The tip of the orogastric tube is in the body of the stomach. Electronically Signed: Royer Rowe MD at 15:43 EST , Service support , Chest X-Ray 05/24/18 15:10 IMPRESSION: The tip of the endotracheal tube is at 6.3 cm proximal to the ehsan. Electronically Signed: Royer Rowe MD at 15:44 EST , Service support , Chest X-Ray 05/25/18 05:11 IMPRESSION: The tip of the endotracheal tube is at 2.4 sinus proximal to the ehsan. The remainder the examination is unchanged. Electronically Signed: Royer Rowe MD at 8:15 EST , Service support , Chest CT 05/25/18 09:38 IMPRESSION: Infiltrates in both lungs worse in the right upper lobe and both lower lobes. Electronically Signed: Royer Rowe MD at 11:32 EST , Service support , Chest X-Ray 05/26/18 10:28 IMPRESSION: Stable interval exam. Placement of right subclavian central venous catheter without evidence of pneumothorax Electronically Signed: Rocco Zepeda DO at 11:52 EST Tel , Service support , Chest X-Ray 05/28/18 05:55 IMPRESSION: Stable findings. Persistent bilateral pulmonary infiltrates, larger on the right. at 0514 Reported and signed by: West Saini MD Electronically Signed: West Saini, at 5:13 EST Tel , Service support , Medical Necessity - Tobacco Use Smoking Status: Never smoker Tobacco Use: Non-smoker Assessment/Plan All Active Problems Chest pain (Acute) Acute respiratory failure with hypoxia (Acute) PNA (pneumonia) (Acute) Acute kidney injury (Acute) This is a 57 years old female patient presented to the emergency room because of shortness of breath, found to have findings consistent with severe community acquired pneumonia as well as acute on chronic diastolic CHF, complicated by acute hypoxic and hypercapnic respiratory failure as well as acute renal failure requiring hemodialysis. #1 acute hypoxic and hypercapnic respiratory failure: Secondary to pneumonia. Patient remains on mechanical ventilation, failed spontaneous breathing for this morning. Her blood pressure and heart rate are maintained, remains on full vent support. She is on sedation. Blood culture showed no growth in 48 hours. Urine culture revealed Klebsiella pneumoniae. She is on IV Levaquin and Zosyn. Plan to continue same treatment, keep on mechanical ventilation today, continue IV antibiotics. #2 acute severe community-acquired pneumonia: She is on IV Levaquin and Zosyn. She has been afebrile, no leukocytosis. Blood culture showed no growth in 48 hours. Pneumococcal and Legionella antigen were negative. Urine culture positive for Klebsiella pneumonia. Respiratory panel for viruses were negative. Sputum culture revealed mixed normal respiratory addison, yeast, no Selin. Plan to continue same treatment for now. #3 acute renal failure: Started on hemodialysis. Kidney function started to improve very minimally. Nephrology on the case. She is still oliguric, very poor urine output. #4 acute on chronic diastolic CHF/indeterminate troponin: Responding to hemodialysis. 2D echocardiogram revealed normal LV size and function, ejection fraction was 55%, stage I diastolic dysfunction. Plan to continue with diuresis for now. #5 type 2 diabetes mellitus: She is on insulin sliding scale as well as Lantus twice daily. Blood sugar has been around 200s, she is tolerating tube feeds. Plan to continue same treatment. #6 depression/anxiety: Medications held, she is on sedation with IV Diprivan and fentanyl. #7 hyperlipidemia: Medication held as well. #8 DVT prophylaxis: Subcu heparin. This note was generated with [employer] dictation software. It may contain incorrect words, spelling, and punctuation that were not noted in checking the note before signing. Code Visit Inpatient E&M: 41537 [facility] Hosp L3
--- NOTE | 2018-05-28 10:30 | CASEMGMT ---
RN CM Note: Attempted call to pt's aunt Mary Grace Peterson [phone] who is listed as next of kin for pt. Aunt was very pleasant, however states she does NOT wish to be listed on this pt's chart. -She states pt has Father, Guerrero Currie-does not have phone number, and brother Subhash Currie but states pt has been estranged from her family. GASTON referral given to GASTON Munoz to evaluate pt's family situation and determine if pt's family is willing to be listed as next of kin. -Pt has significant other who is not listed on chart. No living will documentation found in chart. Olimpia MURPHYN RN ACM
[2018-05-28] MEDS: Propofol 10MG/Ml 1,000 MG/100 ML Bottle 8.4 MG CONT INF ×5 (11:40→20:56)
--- NOTE | 2018-05-28 12:00 | CPS ---
Asked to turn up O2 due to low sats.
--- NOTE | 2018-05-28 13:27 | PCM.OPRPT ---
Report of Operation Date of Procedure: 05/26/18 Pre-Operative Diagnosis: acute kidney failure Post-Operative Diagnosis: same Surgery/Procedure Performed:: placement of dual lumen tunnelled dialysis catheter (23134) Type of Anesthesia:: IV Sedation - propofol bolus by IV Anesthesiologist: Kaylan Sinha Specimen's removed: none Estimated Blood Loss (mL): < 10 ml Fluids Replaced: 200 ml NS
--- NOTE | 2018-05-28 13:32 | OP.PCM_ITS ---
Report of Operation Date of Procedure: 05/26/18 Pre-Operative Diagnosis: acute kidney failure Post-Operative Diagnosis: same Surgery/Procedure Performed:: placement of dual lumen tunnelled dialysis catheter (64411) Type of Anesthesia:: IV Sedation - propofol bolus by IV Anesthesiologist: Kaylan Sinha Specimen's removed: none Estimated Blood Loss (mL): < 10 ml Fluids Replaced: 200 ml NS
--- NOTE | 2018-05-28 15:06 | RAD_ITS ---
STUDY: X-RAY CHEST REASON FOR EXAM: Female, 57 years old. Central line placement. TECHNIQUE: Single AP portable view of the chest. COMPARISON: Comparison is made with prior examination done earlier today. FINDINGS: The tip of the endotracheal tube is at 3.1 times approximately the ehsan. An orogastric tube is seen with the tip in the body of the stomach. A right-sided subclavian catheter has been placed and the tip is at the junction of the superior vena cava and right atrium. The left internal jugular venous catheter is in the midportion of the superior vena cava. Since prior study, there has been progressive infiltration of the right lung as well as in the left lung. This may represent superimposed pneumonia on underlying CHF. RAD/CXR for Line Placement IMPRESSION: All lines are in good position. Progressive bilateral infiltrations. Electronically Signed: Royer Rowe MD at 16:01 EST , Service support ,
--- NOTE | 2018-05-28 15:31 | PCM.OPRPT ---
Report of Operation Date of Procedure: 05/28/18 - Triple-lumen catheter insertion Surgery/Procedure Performed:: Triple-lumen catheter insertion Description of Surgical Findings:: Central line placement procedure note Indication: IV access/hemodynamic instability/vasoactive medications Procedure: A time-out was completed to verify correct patient, indication, medication allergies, procedure, coagulation studies, informed consent signed, and equipment needed. The patient was placed in the supine position for a central line placement to the left IJ vein. The patients left neck was prepped using chlorhexidine and a full body sterile drape was applied. 1% lidocaine was used to anesthetize the surrounding skin. A 7fr 20 cm blue guard triple lumen catheter introduced into the internal jugular vein using the modified Seldinger technique with the assistance of ultrasound. The catheter was threaded smoothly over the guidewire, the guidewire was removed easily, nonpulsatile blood returned. All ports were aspirated of air and flushed with sterile saline. The catheter was sutured in place and covered with an occlusive dressing impregnated with chlorhexidine. Post-procedure: The patient tolerated the procedure well. Vital signs remained stable. EBL10 cc. No complications. Chest X Ray ordered to confirm tip placement and the absence of pneumothorax. Code Visit Procedures: 12815 Insert Non-tunnel CV Cath
[2018-05-28 16:56] LABS: Bedside Glucose 243 mg/dL (70-110)
--- NOTE | 2018-05-28 18:43 | DIALYSIS ---
Pt tolerated 3hr HD tx w/ marginal flow from rsc cvc. lines reversed, max bfr 250. Very positional. Net UF -2600ml. see flow record for tx data.
[2018-05-28 21:16] LABS: Bedside Glucose 298 mg/dL (70-110)
[2018-05-29] VITALS (46 sets, daily range): BP systolic 81–111; BP diastolic 51–90; PULSE 61–88; RESP 14–21; TEMP 36.8–37.5; O2SAT 85–99
[2018-05-29] MEDS: Propofol 10MG/Ml 1,000 MG/100 ML Bottle 8.4 MG CONT INF ×4 (04:10→22:30)
[2018-05-29] MEDS: CHLORHEXIDINE GLUC 2% CLOTH 1 EACH TOWELETTE TOPICAL (04:10)
[2018-05-29] MEDS: Insulin Lispro 100 UNIT/ML INSULN.PEN SC ×6 (04:18→21:30)
[2018-05-29 04:26] LABS: Bedside Glucose 250 mg/dL (70-110)
[2018-05-29 05:08] LABS: Absolute Lymphocyte Count 1.09 X10^3/ul (0.83-4.51); Absolute Neutrophil Count 5.5 X10^3/uL (2.0-7.7); Basophil# 0.03 X10^3/uL; Basophil% 0.4 % (0-1); Eosinophil# 0.11 X10^3/uL; Eosinophils% 1.5 % (0-5); Hematocrit 35.5 % (37-47); Hemoglobin 11.5 g/dl (12.0-15.0); Lymphocyte # 1.09 X10^3/ul (4.0); Lymphocyte % 14.4 % (19-41); Mean Corp Hgb Conc 32.4 g/gl (32-36); Mean Corpuscular Hgb 26.1 pg (27.0-32.0); Mean Corpuscular Volume 80.5 fL (81-99); Mean Platelet Vol. 10.2 fl (6.2-12.0); Monocyte% 9.3 % (0-10); Neutrophil # 5.51 X10^3/uL (2.7-7.7); Neutrophil % 72.9 % (47-70); POSITIVE COUNT NO; POSITIVE DIFFERENTIAL NO; POSITIVE MORPHOLOGY NO; Platelet Count 191 K/mm3 (150-450); RBC Distribution Width CV 14.1 % (11.6-14.6); RBC Distribution Width SD 41.8 fl (35.1-43.9); Red Blood Count 4.41 M/mm3 (4.2-5.4); White Blood Count 7.6 K/mm3 (4.4-11.0)
[2018-05-29 05:09] LABS: Absolute Nucleated RBC Count 0.02 10^3/uL (0-5); NRBC Flagged by Analyzer 0.2 % (0-5)
[2018-05-29 05:12] LABS: Anion Gap 13 (5-15); BUN 46 mg/dL (7-18); BUN/Creat Ratio 8.3 RATIO (10-20); Calcium,Total 8.1 mg/dL (8.5-10.1); Chloride 95 mmol/L (98-107); Creatinine, Serum 5.54 mg/dL (0.55-1.02); EST Glomerular Filtration Rate 8 mL/min (>60); Est Glom Filt Rate - Afr Amer 10 mL/min (>60); Estimated Creatinine Clearance 10.49 ml/min; Glucose 283 mg/dL (74-106); Potassium 3.8 mmol/L (3.5-5.1); Sodium Level 136 mmol/L (136-145)
[2018-05-29] MEDS: fentaNYL drip 100 ML 15 MCG IV ×3 (05:39→20:47)
[2018-05-29] MEDS: Heparin Injection (Vial) 5,000 UNIT/ML VIAL 5000 UNIT SC ×3 (05:39→21:20)
[2018-05-29] MEDS: Nystatin Powder 15gm Bottle 1 APPLIC TOPICAL ×3 (05:40→21:45)
[2018-05-29] MEDS: Ipratropium/Albuterol Sulfate 3 ML AMPUL.NEB INHALATION ×4 (06:52→18:48)
[2018-05-29 07:06] LABS: Bedside Glucose 283 mg/dL (70-110)
[2018-05-29 07:07] LABS: HEPATITIS B SURFACE AG Negative (Negative)
--- NOTE | 2018-05-29 07:35 | PCM.PN.INT ---
Subjective: Patient did okay overnight. No acute issues were reported. Patient did tolerate hemodialysis and oxygenation has improved somewhat. Patient did not have a spontaneous breathing trial this morning secondary to elevated PEEP. Patient is tolerating tube feeds, but blood sugars have run high. Patient continues to be intermittently significantly agitated. General: - - Intubated and sedated. RASS -1. Good vent synchrony. Morbidly obese. HEENT: Atraumatic, PERRLA, EOMI, Normocephalic, - - No scleral icterus or injection noted. Oral: Moist Mucosa, No Gingival or Mucosal Lesions/ Ulcerations Neck: Supple, No JVD, No Nodes, Trachea Midline, - - Some blood noted around dialysis catheter. IJ is clean, dry and intact. Lungs: No rhonchi, No wheeze, Diminished, Rales, - - Symmetric expansion. No dullness to percussion. Cardiovascular: Regular rate, Regular Rhythm, Normal S1, Normal S2, No murmurs, No rub noted, No Gallop Abdomen: Bowel Sounds Present, Soft, Non Tender, Non-Distended, Obese Extremities: No clubbing, No cyanosis, Capillary Refill Less than 3 Seconds, Edema Skin: - - No significant change compared to previous Musculoskeletal: No Tenderness to Palpation of Joints or Extremities Lymphatic: No Cervical, Supraclavicular, or Inguinal Adenopathy Neurological: Cranial nerves II-XII grossly intact, Neuro grossly intact, Motor Exam 5/5 strength throughout Psych/Mental Status: Flat Affect Vital Signs Temp Pulse Resp BP Pulse Ox 37.3 C 70 16 106/62 93 05/29/18 07:00 05/29/18 07:00 05/29/18 07:00 05/29/18 07:00 05/29/18 07:00 Oxygen Flow Rate (L/min) 11 Oxygen Delivery Method Mechanical Ventilator Weight: 137.7 kg Body Mass Index (BMI) 49.7 Finger Stick Blood Glucose 150 Intake and Output for Last 24 Hours 05/27/18 05/28/18 05/29/18 23:59 23:59 23:59 Intake Total 3054.5 / 3054.5 3230 / 3230 990 / 990 Output Total 2225 / 2225 5245 / 5245 Balance 829.5 / 829.5 -2014 / 970 / 970 Labs (Last 48 Hours) 05/27/18 05/27/18 05/27/18 11:46 14:10 16:16 WBC RBC Hgb Hct MCV MCH MCHC RDW RDW Differential Plt Count MPV Immature Gran % (Auto) Neut % (Auto) Lymph % (Auto) [place] % (Auto) Eos % (Auto) Baso % (Auto) Absolute Neuts (auto) Absolute Lymphs (auto) Total Counted Nucleated RBC % Absolute Retic PT INR Sodium Potassium Chloride Carbon Dioxide Anion Gap BUN Creatinine Estim Creat Clear Calc Est GFR (MDRD) Af Amer Est GFR (MDRD) Non-Af BUN/Creatinine Ratio Glucose Calcium Phosphorus Magnesium Total Bilirubin AST ALT Alkaline Phosphatase Total Protein Albumin Globulin Albumin/Globulin Ratio POC Glucose 311 H 321 H 247 H 05/27/18 05/28/18 05/28/18 21:49 02:32 05:00 WBC 7.0 RBC 4.65 Hgb 12.3 Hct 37.4 MCV 80.4 L MCH 26.5 L MCHC 32.9 RDW 14.1 RDW Differential 40.9 Plt Count 194 MPV 10.3 Immature Gran % (Auto) 0.300 Neut % (Auto) 67.9 Lymph % (Auto) 22.8 [place] % (Auto) 7.0 Eos % (Auto) 1.4 Baso % (Auto) 0.6 Absolute Neuts (auto) 4.7 Absolute Lymphs (auto) 1.59 Total Counted Not Reportable Nucleated RBC % Absolute Retic PT INR Sodium Potassium Chloride Carbon Dioxide Anion Gap BUN Creatinine Estim Creat Clear Calc Est GFR (MDRD) Af Amer Est GFR (MDRD) Non-Af BUN/Creatinine Ratio Glucose Calcium Phosphorus Magnesium Total Bilirubin AST ALT Alkaline Phosphatase Total Protein Albumin Globulin Albumin/Globulin Ratio POC Glucose 223 H 247 H 05/28/18 05/28/18 05/28/18 05:00 05:00 06:06 WBC RBC Hgb Hct MCV MCH MCHC RDW RDW Differential Plt Count MPV Immature Gran % (Auto) Neut % (Auto) Lymph % (Auto) [place] % (Auto) Eos % (Auto) Baso % (Auto) Absolute Neuts (auto) Absolute Lymphs (auto) Total Counted Nucleated RBC % Absolute Retic PT 14.2 INR 1.1 Sodium 139 Potassium 3.7 Chloride 98 Carbon Dioxide 26.0 Anion Gap 15 BUN 44 H Creatinine 5.48 H Estim Creat Clear Calc 10.60 Est GFR (MDRD) Af Amer 10 L Est GFR (MDRD) Non-Af 9 L BUN/Creatinine Ratio 8.0 L Glucose 258 H Calcium 7.9 L Phosphorus 4.0 Magnesium 2.3 Total Bilirubin 0.30 AST 26 ALT 28 Alkaline Phosphatase 129 H Total Protein 6.5 Albumin 1.8 L Globulin 4.7 H Albumin/Globulin Ratio 0.4 L POC Glucose 224 H 05/28/18 05/28/18 05/28/18 09:04 16:41 21:05 WBC RBC Hgb Hct MCV MCH MCHC RDW RDW Differential Plt Count MPV Immature Gran % (Auto) Neut % (Auto) Lymph % (Auto) [place] % (Auto) Eos % (Auto) Baso % (Auto) Absolute Neuts (auto) Absolute Lymphs (auto) Total Counted Nucleated RBC % Absolute Retic PT INR Sodium Potassium Chloride Carbon Dioxide Anion Gap BUN Creatinine Estim Creat Clear Calc Est GFR (MDRD) Af Amer Est GFR (MDRD) Non-Af BUN/Creatinine Ratio Glucose Calcium Phosphorus Magnesium Total Bilirubin AST ALT Alkaline Phosphatase Total Protein Albumin Globulin Albumin/Globulin Ratio POC Glucose 253 H 243 H 298 H 05/29/18 05/29/18 05/29/18 04:17 04:50 04:50 WBC 7.6 RBC 4.41 Hgb 11.5 L Hct 35.5 L MCV 80.5 L MCH 26.1 L MCHC 32.4 RDW 14.1 RDW Differential 41.8 Plt Count 191 MPV 10.2 Immature Gran % (Auto) 1.500 H Neut % (Auto) 72.9 H Lymph % (Auto) 14.4 L [place] % (Auto) 9.3 Eos % (Auto) 1.5 Baso % (Auto) 0.4 Absolute Neuts (auto) 5.5 Absolute Lymphs (auto) 1.09 Total Counted Not Reportable Nucleated RBC % 0.2 Absolute Retic 0.02 PT INR Sodium 136 Potassium 3.8 Chloride 95 L Carbon Dioxide 28.0 Anion Gap 13 BUN 46 H Creatinine 5.54 H Estim Creat Clear Calc 10.49 Est GFR (MDRD) Af Amer 10 L Est GFR (MDRD) Non-Af 8 L BUN/Creatinine Ratio 8.3 L Glucose 283 H Calcium 8.1 L Phosphorus Magnesium Total Bilirubin AST ALT Alkaline Phosphatase Total Protein Albumin Globulin Albumin/Globulin Ratio POC Glucose 250 H 02/19/19 06:52 WBC RBC Hgb Hct MCV MCH MCHC RDW RDW Differential Plt Count MPV Immature Gran % (Auto) Neut % (Auto) Lymph % (Auto) [place] % (Auto) Eos % (Auto) Baso % (Auto) Absolute Neuts (auto) Absolute Lymphs (auto) Total Counted Nucleated RBC % Absolute Retic PT INR Sodium Potassium Chloride Carbon Dioxide Anion Gap BUN Creatinine Estim Creat Clear Calc Est GFR (MDRD) Af Amer Est GFR (MDRD) Non-Af BUN/Creatinine Ratio Glucose Calcium Phosphorus Magnesium Total Bilirubin AST ALT Alkaline Phosphatase Total Protein Albumin Globulin Albumin/Globulin Ratio POC Glucose 283 H Microbiology 05/26/18 00:05 Stool Enteric Bacteriology - Final 05/25/18 13:25 Sputum, Induced/Lukens Gram Stain - Final 05/25/18 13:25 Sputum, Induced/Lukens Respiratory Culture - Final Yeast, not Selin albicans 05/24/18 15:00 Sputum, Induced/Lukens Gram Stain - Final 05/24/18 15:00 Sputum, Induced/Lukens Respiratory Culture - Final Clinical Impression(s) from Imaging Studies Chest X-Ray 05/28/18 15:06 IMPRESSION: All lines are in good position. Progressive bilateral infiltrations. Electronically Signed: Royer Rowe MD at 16:01 EST , Service support , Medical Necessity - Tobacco Use Smoking Status: Never smoker Tobacco Use: Non-smoker Assessment/Plan All Active Problems Chest pain (Acute) Acute respiratory failure with hypoxia (Acute) PNA (pneumonia) (Acute) Acute kidney injury (Acute) RECOMMENDATIONS: 1. Continue antibiotics as ordered. 2. Preferentially wean FiO2 today goal of 40%, then wean PEEP 3. Continue hemodialysis per nephrology recommendations. 4. Continue tube feeds as ordered. 5. Continue current sedation regimen with plans to maintain a RASS of -1. 6. Continue appropriate ICU prophylaxis 7. Add Risperdal therapy. Increase basal insulin IMPRESSIONS: 1. Acute combined respiratory failure secondary to severe community-acquired pneumonia Patient appears to be responding to therapy. Patient has had volume removal with hemodialysis. Oxygen status precludes spontaneous breathing trial at this time. Will attempt to continue to maintain FiO2, then PEEP as tolerated. Pulmonary recruitment may be an issue given her body habitus. Patient appears to have responded well to addition of Levaquin. We will continue with Levaquin only. 2. Acute kidney injury Likely secondary to ATN, as the patient was initially diuresed on admission to the hospital and also developed a component of hypotension on arrival to the ICU. Nephrology is currently following. The patient did undergo hemodialysis yesterday with 2 L of fluid removed. Hemodialysis support will be continued per nephrology recommendations. 3. Indeterminate troponin/acute on chronic diastolic heart failure Echocardiogram revealed no wall motion abnormalities. Patient with diastolic abnormalities noted on echocardiogram. Complicated by renal function, but patient appears to be responding well to volume removal. 4. Morbid obesity/diabetes mellitus/anxiety/depression/PTSD Complicates care, management, recovery and prognosis. Continue Accu-Cheks and sliding scale insulin coverage. Tube feeds will be continued. Since baseline psychiatric medications cannot be reinitiated as these cannot be crushed. Will attempt substitution with Risperdal therapy. TIME: 34 minutes of critical care time, independent of procedures, was spent addressing the patient's acute combined respiratory failure, severe community-acquired pneumonia, acute kidney injury, indeterminate troponin, morbid obesity, review of all data and collaboration with the care team. (6:30 AM to 7:30 AM) Code Visit 9xxxx: [id number] Critical care first hour
--- NOTE | 2018-05-29 07:40 | PN_ITS ---
Subjective: Patient did okay overnight. No acute issues were reported. Patient did tolerate hemodialysis and oxygenation has improved somewhat. Patient did not have a spontaneous breathing trial this morning secondary to elevated PEEP. Patient is tolerating tube feeds, but blood sugars have run high. Patient continues to be intermittently significantly agitated. General: - - Intubated and sedated. RASS -1. Good vent synchrony. Morbidly obese. HEENT: Atraumatic, PERRLA, EOMI, Normocephalic, - - No scleral icterus or injection noted. Oral: Moist Mucosa, No Gingival or Mucosal Lesions/ Ulcerations Neck: Supple, No JVD, No Nodes, Trachea Midline, - - Some blood noted around dialysis catheter. IJ is clean, dry and intact. Lungs: No rhonchi, No wheeze, Diminished, Rales, - - Symmetric expansion. No dullness to percussion. Cardiovascular: Regular rate, Regular Rhythm, Normal S1, Normal S2, No murmurs, No rub noted, No Gallop Abdomen: Bowel Sounds Present, Soft, Non Tender, Non-Distended, Obese Extremities: No clubbing, No cyanosis, Capillary Refill Less than 3 Seconds, Edema Skin: - - No significant change compared to previous Musculoskeletal: No Tenderness to Palpation of Joints or Extremities Lymphatic: No Cervical, Supraclavicular, or Inguinal Adenopathy Neurological: Cranial nerves II-XII grossly intact, Neuro grossly intact, Motor Exam 5/5 strength throughout Psych/Mental Status: Flat Affect Vital Signs Temp Pulse Resp BP Pulse Ox 37.3 C 70 16 106/62 93 05/29/18 07:00 05/29/18 07:00 05/29/18 07:00 05/29/18 07:00 05/29/18 07:00 Oxygen Flow Rate (L/min) 11 Oxygen Delivery Method Mechanical Ventilator Weight: 137.7 kg Body Mass Index (BMI) 49.7 Finger Stick Blood Glucose 150 Intake and Output for Last 24 Hours 05/27/18 05/28/18 05/29/18 23:59 23:59 23:59 Intake Total 3054.5 / 3054.5 3230 / 3230 990 / 990 Output Total 2225 / 2225 5245 / 5245 Balance 829.5 / 829.5 -2014 / 970 / 970 Labs (Last 48 Hours) 05/27/18 05/27/18 05/27/18 11:46 14:10 16:16 WBC RBC Hgb Hct MCV MCH MCHC RDW RDW Differential Plt Count MPV Immature Gran % (Auto) Neut % (Auto) Lymph % (Auto) [place] % (Auto) Eos % (Auto) Baso % (Auto) Absolute Neuts (auto) Absolute Lymphs (auto) Total Counted Nucleated RBC % Absolute Retic PT INR Sodium Potassium Chloride Carbon Dioxide Anion Gap BUN Creatinine Estim Creat Clear Calc Est GFR (MDRD) Af Amer Est GFR (MDRD) Non-Af BUN/Creatinine Ratio Glucose Calcium Phosphorus Magnesium Total Bilirubin AST ALT Alkaline Phosphatase Total Protein Albumin Globulin Albumin/Globulin Ratio POC Glucose 311 H 321 H 247 H 05/27/18 05/28/18 05/28/18 21:49 02:32 05:00 WBC 7.0 RBC 4.65 Hgb 12.3 Hct 37.4 MCV 80.4 L MCH 26.5 L MCHC 32.9 RDW 14.1 RDW Differential 40.9 Plt Count 194 MPV 10.3 Immature Gran % (Auto) 0.300 Neut % (Auto) 67.9 Lymph % (Auto) 22.8 [place] % (Auto) 7.0 Eos % (Auto) 1.4 Baso % (Auto) 0.6 Absolute Neuts (auto) 4.7 Absolute Lymphs (auto) 1.59 Total Counted Not Reportable Nucleated RBC % Absolute Retic PT INR Sodium Potassium Chloride Carbon Dioxide Anion Gap BUN Creatinine Estim Creat Clear Calc Est GFR (MDRD) Af Amer Est GFR (MDRD) Non-Af BUN/Creatinine Ratio Glucose Calcium Phosphorus Magnesium Total Bilirubin AST ALT Alkaline Phosphatase Total Protein Albumin Globulin Albumin/Globulin Ratio POC Glucose 223 H 247 H 05/28/18 05/28/18 05/28/18 05:00 05:00 06:06 WBC RBC Hgb Hct MCV MCH MCHC RDW RDW Differential Plt Count MPV Immature Gran % (Auto) Neut % (Auto) Lymph % (Auto) [place] % (Auto) Eos % (Auto) Baso % (Auto) Absolute Neuts (auto) Absolute Lymphs (auto) Total Counted Nucleated RBC % Absolute Retic PT 14.2 INR 1.1 Sodium 139 Potassium 3.7 Chloride 98 Carbon Dioxide 26.0 Anion Gap 15 BUN 44 H Creatinine 5.48 H Estim Creat Clear Calc 10.60 Est GFR (MDRD) Af Amer 10 L Est GFR (MDRD) Non-Af 9 L BUN/Creatinine Ratio 8.0 L Glucose 258 H Calcium 7.9 L Phosphorus 4.0 Magnesium 2.3 Total Bilirubin 0.30 AST 26 ALT 28 Alkaline Phosphatase 129 H Total Protein 6.5 Albumin 1.8 L Globulin 4.7 H Albumin/Globulin Ratio 0.4 L POC Glucose 224 H 05/28/18 05/28/18 05/28/18 09:04 16:41 21:05 WBC RBC Hgb Hct MCV MCH MCHC RDW RDW Differential Plt Count MPV Immature Gran % (Auto) Neut % (Auto) Lymph % (Auto) [place] % (Auto) Eos % (Auto) Baso % (Auto) Absolute Neuts (auto) Absolute Lymphs (auto) Total Counted Nucleated RBC % Absolute Retic PT INR Sodium Potassium Chloride Carbon Dioxide Anion Gap BUN Creatinine Estim Creat Clear Calc Est GFR (MDRD) Af Amer Est GFR (MDRD) Non-Af BUN/Creatinine Ratio Glucose Calcium Phosphorus Magnesium Total Bilirubin AST ALT Alkaline Phosphatase Total Protein Albumin Globulin Albumin/Globulin Ratio POC Glucose 253 H 243 H 298 H 05/29/18 05/29/18 05/29/18 04:17 04:50 04:50 WBC 7.6 RBC 4.41 Hgb 11.5 L Hct 35.5 L MCV 80.5 L MCH 26.1 L MCHC 32.4 RDW 14.1 RDW Differential 41.8 Plt Count 191 MPV 10.2 Immature Gran % (Auto) 1.500 H Neut % (Auto) 72.9 H Lymph % (Auto) 14.4 L [place] % (Auto) 9.3 Eos % (Auto) 1.5 Baso % (Auto) 0.4 Absolute Neuts (auto) 5.5 Absolute Lymphs (auto) 1.09 Total Counted Not Reportable Nucleated RBC % 0.2 Absolute Retic 0.02 PT INR Sodium 136 Potassium 3.8 Chloride 95 L Carbon Dioxide 28.0 Anion Gap 13 BUN 46 H Creatinine 5.54 H Estim Creat Clear Calc 10.49 Est GFR (MDRD) Af Amer 10 L Est GFR (MDRD) Non-Af 8 L BUN/Creatinine Ratio 8.3 L Glucose 283 H Calcium 8.1 L Phosphorus Magnesium Total Bilirubin AST ALT Alkaline Phosphatase Total Protein Albumin Globulin Albumin/Globulin Ratio POC Glucose 250 H 02/19/19 06:52 WBC RBC Hgb Hct MCV MCH MCHC RDW RDW Differential Plt Count MPV Immature Gran % (Auto) Neut % (Auto) Lymph % (Auto) [place] % (Auto) Eos % (Auto) Baso % (Auto) Absolute Neuts (auto) Absolute Lymphs (auto) Total Counted Nucleated RBC % Absolute Retic PT INR Sodium Potassium Chloride Carbon Dioxide Anion Gap BUN Creatinine Estim Creat Clear Calc Est GFR (MDRD) Af Amer Est GFR (MDRD) Non-Af BUN/Creatinine Ratio Glucose Calcium Phosphorus Magnesium Total Bilirubin AST ALT Alkaline Phosphatase Total Protein Albumin Globulin Albumin/Globulin Ratio POC Glucose 283 H Microbiology 05/26/18 00:05 Stool Enteric Bacteriology - Final 05/25/18 13:25 Sputum, Induced/Lukens Gram Stain - Final 05/25/18 13:25 Sputum, Induced/Lukens Respiratory Culture - Final Yeast, not Selin albicans 05/24/18 15:00 Sputum, Induced/Lukens Gram Stain - Final 05/24/18 15:00 Sputum, Induced/Lukens Respiratory Culture - Final Clinical Impression(s) from Imaging Studies Chest X-Ray 05/28/18 15:06 IMPRESSION: All lines are in good position. Progressive bilateral infiltrations. Electronically Signed: Royer Rowe MD at 16:01 EST , Service support , Medical Necessity - Tobacco Use Smoking Status: Never smoker Tobacco Use: Non-smoker Assessment/Plan All Active Problems Chest pain (Acute) Acute respiratory failure with hypoxia (Acute) PNA (pneumonia) (Acute) Acute kidney injury (Acute) RECOMMENDATIONS: 1. Continue antibiotics as ordered. 2. Preferentially wean FiO2 today goal of 40%, then wean PEEP 3. Continue hemodialysis per nephrology recommendations. 4. Continue tube feeds as ordered. 5. Continue current sedation regimen with plans to maintain a RASS of -1. 6. Continue appropriate ICU prophylaxis 7. Add Risperdal therapy. Increase basal insulin IMPRESSIONS: 1. Acute combined respiratory failure secondary to severe community-acquired pneumonia Patient appears to be responding to therapy. Patient has had volume removal with hemodialysis. Oxygen status precludes spontaneous breathing trial at this time. Will attempt to continue to maintain FiO2, then PEEP as tolerated. Pulmonary recruitment may be an issue given her body habitus. Patient appears to have responded well to addition of Levaquin. We will continue with Levaquin only. 2. Acute kidney injury Likely secondary to ATN, as the patient was initially diuresed on admission to the hospital and also developed a component of hypotension on arrival to the ICU. Nephrology is currently following. The patient did undergo hemodialysis yesterday with 2 L of fluid removed. Hemodialysis support will be continued per nephrology recommendations. 3. Indeterminate troponin/acute on chronic diastolic heart failure Echocardiogram revealed no wall motion abnormalities. Patient with robbi stolic abnormalities noted on echocardiogram. Complicated by renal function, but patient appears to be responding well to volume removal. 4. Morbid obesity/diabetes mellitus/anxiety/depression/PTSD Complicates care, management, recovery and prognosis. Continue Accu-Cheks and sliding scale insulin coverage. Tube feeds will be continued. Since baseline psychiatric medications cannot be reinitiated as these cannot be crushed. Will attempt substitution with Risperdal therapy. TIME: 34 minutes of critical care time, independent of procedures, was spent addressing the patient's acute combined respiratory failure, severe community- acquired pneumonia, acute kidney injury, indeterminate troponin, morbid obesity, review of all data and collaboration with the care team. (6:30 AM to 7:30 AM) Code Visit 9xxxx: [id number] Critical care first hour
[2018-05-29] MEDS: RisperiDONE 1 MG Tablet 2 MG GT ×2 (09:38→21:47)
[2018-05-29] MEDS: Chlorhexidine 15 ML PO ×2 (09:38→21:19)
[2018-05-29] MEDS: Famotidine 20 MG Tablet GT (09:40)
[2018-05-29] MEDS: 0.9% NaCl IVPB Med Flush (250 mL) 15 ML IV (09:42)
--- NOTE | 2018-05-29 09:58 | PCM.PROGNOTE ---
Patient Problems: Active and Suspected Problems Chest pain (Acute) Acute respiratory failure with hypoxia (Acute) PNA (pneumonia) (Acute) Acute kidney injury (Acute) Subjective: Chief complaint: Follow-up after admission for severe community-acquired pneumonia complicated by acute hypoxic and hypercapnic respiratory failure as well as acute renal failure, acute on chronic diastolic CHF and indeterminate troponin. Patient seen and examined. No acute events overnight. This morning, she is fully sedated, not responding. Still on high PEEP and FiO2, no spontaneous breathing trial performed this morning. She is tolerating tube feeds. She is afebrile, blood pressure and heart rate is stable, remains on mechanical ventilation. - Physical Exam General: - - Sedated, intubated. HEENT: Atraumatic, PERRLA, EOMI, Normocephalic Oral: Moist Mucosa, No Gingival or Mucosal Lesions/ Ulcerations Neck: Supple, No JVD, Negative Carotid Bruits, Trachea Midline, Thyroid Normal Size and Texture Lungs: No wheeze, Diminished, Rales, - - Decreased breath sounds bilaterally, scattered rhonchi. Cardiovascular: Regular rate, Regular Rhythm, Normal S1, Normal S2, No murmurs, PMI Normal Abdomen: Bowel Sounds Present, Soft, Non Tender, Non-Distended, No Hepato-splenomegaly, Obese Extremities: No clubbing, No cyanosis, Edema Skin: No rashes, No breakdown Lymphatic: No Cervical, Supraclavicular, or Inguinal Adenopathy Neurological: - - Unable to assess, patient is sedated and intubated. Psych/Mental Status: - - Unable to assess, patient sedated and intubated. Vital Signs Temp Pulse Resp BP Pulse Ox 98.2 F 67 16 90/55 L 94 05/29/18 08:00 05/29/18 09:12 05/29/18 09:12 05/29/18 08:00 05/29/18 09:12 Oxygen Flow Rate (L/min) 11 Oxygen Delivery Method Mechanical Ventilator Weight: 303 lb 9.224 oz Body Mass Index (BMI) 49.7 Finger Stick Blood Glucose 150 Intake and Output for Last 24 Hours 05/27/18 05/28/18 05/29/18 23:59 23:59 23:59 Intake Total 3054.5 / 3054.5 3230 / 3230 990 / 990 Output Total 2225 / 2225 5245 / 5245 Balance 829.5 / 829.5 -2014 / 970 / 970 Microbiology Past 72 Hours 05/23/18 15:10 Blood Culture - Final Blood Culture (Wb) - Anticubital Right No growth in 5 days. 05/23/18 15:10 Blood Culture - Final Blood Culture (Wb) - Left Forearm No growth in 5 days. 05/26/18 00:05 Enteric Bacteriology - Final Stool 05/25/18 13:25 Gram Stain - Final Sputum, Induced/Lukens Respiratory Culture - Final Yeast, not Selin albicans 05/24/18 15:00 Gram Stain - Final Sputum, Induced/Lukens Respiratory Culture - Final 05/26/18 21:05 C. difficile DNA Amplification - Final Stool Laboratory Tests Past 24 Hrs 05/29/18 05/29/18 04:50 04:50 WBC 7.6 RBC 4.41 Hgb 11.5 L Hct 35.5 L MCV 80.5 L MCH 26.1 L MCHC 32.4 RDW 14.1 RDW Differential 41.8 Plt Count 191 MPV 10.2 Immature Gran % (Auto) 1.500 H Neut % (Auto) 72.9 H Lymph % (Auto) 14.4 L [place] % (Auto) 9.3 Eos % (Auto) 1.5 Baso % (Auto) 0.4 Absolute Neuts (auto) 5.5 Absolute Lymphs (auto) 1.09 Total Counted Not Reportable Nucleated RBC % 0.2 Absolute Retic 0.02 Sodium 136 Potassium 3.8 Chloride 95 L Carbon Dioxide 28.0 Anion Gap 13 BUN 46 H Creatinine 5.54 H Estim Creat Clear Calc 10.49 Est GFR (MDRD) Af Amer 10 L Est GFR (MDRD) Non-Af 8 L BUN/Creatinine Ratio 8.3 L Glucose 283 H Calcium 8.1 L POC Glucose 05/29/18 05/29/18 05/28/18 06:52 04:17 21:05 POC Glucose 283 H 250 H 298 H 05/28/18 16:41 POC Glucose 243 H Medical Necessity - Tobacco Use Smoking Status: Never smoker Tobacco Use: Non-smoker Assessment/Plan All Active Problems Chest pain (Acute) Acute respiratory failure with hypoxia (Acute) PNA (pneumonia) (Acute) Acute kidney injury (Acute) This is a 57 years old female patient presented to the emergency room because of shortness of breath, found to have findings consistent with severe community acquired pneumonia as well as acute on chronic diastolic CHF, complicated by acute hypoxic and hypercapnic respiratory failure as well as acute renal failure requiring hemodialysis. #1 acute hypoxic and hypercapnic respiratory failure: Secondary to pneumonia. Patient remains on mechanical ventilation, still requiring high PEEP and FiO2. No breathing trial this morning performed. Her blood pressure and heart rate are maintained, remains on full vent support. She is on sedation. Blood culture showed no growth in 48 hours. Urine culture revealed Klebsiella pneumoniae. She is on IV Levaquin, Zosyn discontinued. Plan to continue same treatment, keep on mechanical ventilation today, continue IV antibiotics. #2 acute severe community-acquired pneumonia: She is on IV Levaquin. She has been afebrile, no leukocytosis. Blood culture showed no growth in 48 hours. Pneumococcal and Legionella antigen were negative. Urine culture positive for Klebsiella pneumonia. Respiratory panel for viruses were negative. Sputum culture revealed mixed normal respiratory addison, yeast, no Selin. Plan to continue same treatment for now. #3 acute renal failure: Started on hemodialysis yesterday. Kidney function continued to worsen. Nephrology on the case. Plan for dialysis again today. #4 acute on chronic diastolic CHF/indeterminate troponin: Responding to hemodialysis. 2D echocardiogram revealed normal LV size and function, ejection fraction was 55%, stage I diastolic dysfunction. Plan to continue with dialysis. #5 type 2 diabetes mellitus: She is on insulin sliding scale as well as Lantus twice daily. Blood sugar has been around 200s, she is tolerating tube feeds. Insulin dosage adjusted. #6 depression/anxiety: Medications held, she is on sedation with IV Diprivan and fentanyl. #7 hyperlipidemia: Medication held as well. #8 DVT prophylaxis: Subcu heparin. This note was generated with [employer] dictation software. It may contain incorrect words, spelling, and punctuation that were not noted in checking the note before signing. Code Visit Inpatient E&M: 49213 [facility] L3
[2018-05-29 10:02] LABS: Bedside Glucose 243 mg/dL (70-110)
--- NOTE | 2018-05-29 10:15 | PCM.PN.REN ---
Patient Problems: Active and Suspected Problems Chest pain (Acute) Acute respiratory failure with hypoxia (Acute) PNA (pneumonia) (Acute) Acute kidney injury (Acute) Subjective: Patient remains intubated. Awake but not following commands. Slightly agitated. FiO2 is down to 40%. Remains anuric. Not on any pressor - Physical Exam General: Confused, Disoriented HEENT: Atraumatic Oral: Moist Mucosa Neck: Supple, No JVD Lungs: Rhonchi, - - On vent support. Equal air entry Cardiovascular: Regular rate, Regular Rhythm, Normal S1, Normal S2 Abdomen: Bowel Sounds Present, Soft, Non-Distended Extremities: No clubbing, No cyanosis, No edema Skin: No rashes Musculoskeletal: No Muscle Wasting Lymphatic: No Cervical, Supraclavicular, or Inguinal Adenopathy Comment: Patient is intubated and sedated Vital Signs Temp Pulse Resp BP Pulse Ox 98.2 F 67 16 90/55 L 94 05/29/18 08:00 05/29/18 09:12 05/29/18 09:12 05/29/18 08:00 05/29/18 09:12 Oxygen Flow Rate (L/min) 11 Oxygen Delivery Method Mechanical Ventilator Weight: 137.7 kg Body Mass Index (BMI) 49.7 Finger Stick Blood Glucose 150 Intake and Output for Last 24 Hours 05/27/18 05/28/18 05/29/18 23:59 23:59 23:59 Intake Total 3054.5 / 3054.5 3230 / 3230 990 / 990 Output Total 2225 / 2225 5245 / 5245 Balance 829.5 / 829.5 -2014 / 970 / 970 Microbiology Past 72 Hours 05/23/18 15:10 Blood Culture - Final Blood Culture (Wb) - Anticubital Right No growth in 5 days. 05/23/18 15:10 Blood Culture - Final Blood Culture (Wb) - Left Forearm No growth in 5 days. 05/26/18 00:05 Enteric Bacteriology - Final Stool 05/25/18 13:25 Gram Stain - Final Sputum, Induced/Lukens Respiratory Culture - Final Yeast, not Selin albicans 05/24/18 15:00 Gram Stain - Final Sputum, Induced/Lukens Respiratory Culture - Final 05/26/18 21:05 C. difficile DNA Amplification - Final Stool Laboratory Tests Past 24 Hrs 05/29/18 05/29/18 04:50 04:50 WBC 7.6 RBC 4.41 Hgb 11.5 L Hct 35.5 L MCV 80.5 L MCH 26.1 L MCHC 32.4 RDW 14.1 RDW Differential 41.8 Plt Count 191 MPV 10.2 Immature Gran % (Auto) 1.500 H Neut % (Auto) 72.9 H Lymph % (Auto) 14.4 L [place] % (Auto) 9.3 Eos % (Auto) 1.5 Baso % (Auto) 0.4 Absolute Neuts (auto) 5.5 Absolute Lymphs (auto) 1.09 Total Counted Not Reportable Nucleated RBC % 0.2 Absolute Retic 0.02 Sodium 136 Potassium 3.8 Chloride 95 L Carbon Dioxide 28.0 Anion Gap 13 BUN 46 H Creatinine 5.54 H Estim Creat Clear Calc 10.49 Est GFR (MDRD) Af Amer 10 L Est GFR (MDRD) Non-Af 8 L BUN/Creatinine Ratio 8.3 L Glucose 283 H Calcium 8.1 L POC Glucose 05/29/18 05/29/18 05/29/18 09:47 06:52 04:17 POC Glucose 243 H 283 H 250 H 05/28/18 05/28/18 21:05 16:41 POC Glucose 298 H 243 H Medical Necessity - Tobacco Use Smoking Status: Never smoker Tobacco Use: Non-smoker Assessment/Plan All Active Problems Chest pain (Acute) Acute respiratory failure with hypoxia (Acute) PNA (pneumonia) (Acute) Acute kidney injury (Acute) 1-Acute kidney injury. Normal creatinine 2014. Patient presented with creatinine 1.07 mg/dL. UA showed 100 protein and 100 blood but no RBCs or white cell count. Acute kidney injury is most probably related ATN Another possibility with this UA finding is glomera nephritis. Goodpasture's syndrome and another GN nephritic etiology labs are still pending No recovery of kidney function. Remains anuric Patient is currently hemodialysis dependent for metabolic and volume support. Dialysis session May 28. No need for hemodialysis today. I will reevaluate the need for hemodialysis tomorrow. Please keep mean arterial pressure more than 65. Avoid nephrotoxic. Dose antibiotics and medication for patient on hemodialysis Continue to monitor for kidney function recovery 2-Acute respiratory failure from bilateral pneumonia. Ventilator support as per the slide developer. [id number] pneumonia. Abx as per the ICU/Primary service Thank you for the consult. Renal team will continue to follow. Please call with any question or concern at my cell phone #[phone]
--- NOTE | 2018-05-29 11:51 | CASEMGMT ---
Addendum entered by Terra Tran 05/29/18 12:25: SW did attempt to find an alternate number for pt's brother on the internet without success. SW spoke w/pt's industrial millwright Delbert in regard to pt's family. He states pt has an aunt in [place]. SW asked about family [place], if he knows any of their names or numbers. Delbert states that pt's aunt would have this information. He states pt's mother has , states she has a father and 2-3 children, none of them talk to the pt. Delbert does not know their names or whereabouts. Delbert asked how pt is doing. SW explained is not able to tell him much, once pt is able we will ask her permission to speak w/him. EVA Bustos, CHILD ADOLESCENT PSYCHIATRIST Original Note: SW attempted to call pt's brother Gregg Currie, however the number is disconnected. EVA Bustos, CHILD ADOLESCENT PSYCHIATRIST
[2018-05-29] MEDS: Vital AF 1.2 Cal Liquid 1,000 ML 60 ML GT (13:27)
[2018-05-29 13:41] LABS: Bedside Glucose 214 mg/dL (70-110)
[2018-05-29] MEDS: 0.9% NaCl Peripheral Flush Adult/Peds IV (14:44)
[2018-05-29 17:06] LABS: Bedside Glucose 166 mg/dL (70-110)
[2018-05-29 21:41] LABS: Bedside Glucose 239 mg/dL (70-110)
[2018-05-30] VITALS (40 sets, daily range): BP systolic 92–141; BP diastolic 54–72; PULSE 69–96; RESP 16–22; TEMP 37.1–37.7; O2SAT 87–97
[2018-05-30] MEDS: Insulin Lispro 100 UNIT/ML INSULN.PEN SC ×4 (02:11→21:12)
[2018-05-30 02:51] LABS: Bedside Glucose 301 mg/dL (70-110)
[2018-05-30] MEDS: CHLORHEXIDINE GLUC 2% CLOTH 1 EACH TOWELETTE TOPICAL (03:40)
[2018-05-30] MEDS: Propofol 10MG/Ml 1,000 MG/100 ML Bottle 8.4 MG CONT INF ×4 (04:17→21:09)
[2018-05-30] MEDS: fentaNYL drip 100 ML 15 MCG IV ×2 (04:17→16:01)
[2018-05-30] MEDS: Vital AF 1.2 Cal Liquid 1,000 ML 60 ML GT (04:18)
[2018-05-30] MEDS: 0.9% NaCl Peripheral Flush Adult/Peds IV ×3 (04:18→10:21)
[2018-05-30 04:46] LABS: Anion Gap 15 (5-15); BUN 63 mg/dL (7-18); Calcium,Total 8.3 mg/dL (8.5-10.1); Chloride 94 mmol/L (98-107); Creatinine, Serum 7.02 mg/dL (0.55-1.02); EST Glomerular Filtration Rate 6 mL/min (>60); Est Glom Filt Rate - Afr Amer 8 mL/min (>60); Estimated Creatinine Clearance 8.28 ml/min; Glucose 246 mg/dL (74-106); Potassium 3.8 mmol/L (3.5-5.1); Sodium Level 135 mmol/L (136-145)
[2018-05-30 05:25] LABS: Absolute Lymphocyte Count 0.76 X10^3/ul (0.83-4.51); Absolute Neutrophil Count 5.5 X10^3/uL (2.0-7.7); Basophil# 0.03 X10^3/uL; Basophil% 0.4 % (0-1); Eosinophil# 0.19 X10^3/uL; Eosinophils% 2.5 % (0-5); Hematocrit 35.1 % (37-47); Hemoglobin 11.3 g/dl (12.0-15.0); Lymphocyte # 0.76 X10^3/ul (4.0); Lymphocyte % 10.1 % (19-41); Mean Corp Hgb Conc 32.2 g/gl (32-36); Mean Corpuscular Hgb 25.6 pg (27.0-32.0); Mean Corpuscular Volume 79.6 fL (81-99); Mean Platelet Vol. 9.5 fl (6.2-12.0); Monocyte# 0.86 X10^3/uL; Monocyte% 11.5 % (0-10); Neutrophil # 5.46 X10^3/uL (2.7-7.7); Neutrophil % 72.8 % (47-70); Platelet Count 249 K/mm3 (150-450); RBC Distribution Width CV 14.1 % (11.6-14.6); RBC Distribution Width SD 40.7 fl (35.1-43.9); Red Blood Count 4.41 M/mm3 (4.2-5.4); White Blood Count 7.5 K/mm3 (4.4-11.0)
[2018-05-30 05:36] LABS: POSITIVE COUNT YES; POSITIVE DIFFERENTIAL NO; POSITIVE MORPHOLOGY YES
[2018-05-30] MEDS: Nystatin Powder 15gm Bottle 1 APPLIC TOPICAL ×3 (06:30→21:11)
[2018-05-30] MEDS: Heparin Injection (Vial) 5,000 UNIT/ML VIAL 5000 UNIT SC ×3 (06:30→21:09)
[2018-05-30] MEDS: Ipratropium/Albuterol Sulfate 3 ML AMPUL.NEB INHALATION ×3 (06:41→19:19)
[2018-05-30 06:46] LABS: Bedside Glucose 263 mg/dL (70-110)
--- NOTE | 2018-05-30 07:36 | PCM.PN.INT ---
Subjective: Patient did okay overnight. Patient continues to have episodes of high agitation. Patient was as low as 40% FiO2 and 8 of PEEP, but oxygen demands have increased this morning. No pressors or fluid boluses have been required overnight. Patient did not have any fevers. General: - - Intubated and sedated. RASS -1. Morbidly obese. HEENT: Atraumatic, PERRLA, EOMI, Normocephalic, - - Right scleral injection without icterus Oral: Moist Mucosa, No Gingival or Mucosal Lesions/ Ulcerations Neck: Supple, No JVD, No Nodes, Trachea Midline, - - IJ line is clean, dry and intact. Dialysis line is improved compared to previous. No erythema or exudate is appreciated. Lungs: No rhonchi, No wheeze, Diminished, Rales, - - Symmetric expansion. Cardiovascular: Regular rate, Regular Rhythm, Normal S1, Normal S2, No murmurs, No rub noted, No Gallop Abdomen: Bowel Sounds Present, Soft, Non Tender, Non-Distended, Obese Extremities: No cyanosis, Capillary Refill Less than 3 Seconds, Edema Skin: - - No significant change compared to previous Musculoskeletal: No Tenderness to Palpation of Joints or Extremities Lymphatic: No Cervical, Supraclavicular, or Inguinal Adenopathy Neurological: Cranial nerves II-XII grossly intact, Neuro grossly intact Psych/Mental Status: Flat Affect Vital Signs Temp Pulse Resp BP Pulse Ox 37.4 C H 71 16 97/58 L 93 05/30/18 07:00 05/30/18 07:00 05/30/18 07:00 05/30/18 07:00 05/30/18 07:00 Oxygen Flow Rate (L/min) 11 Oxygen Delivery Method Mechanical Ventilator Weight: 117.9 kg Body Mass Index (BMI) 49.7 Finger Stick Blood Glucose 150 Intake and Output for Last 24 Hours 05/28/18 05/29/18 05/30/18 23:59 23:59 23:59 Intake Total 3230 / 3230 3146 / 3146 865.3 / 865.3 Output Total 5245 / 5245 85 / 85 / Balance -2014 / 3061 / 3061 839.3 / 839.3 Labs (Last 48 Hours) 05/28/18 05/28/18 05/28/18 09:04 16:41 21:05 WBC RBC Hgb Hct MCV MCH MCHC RDW RDW Differential Plt Count MPV Immature Gran % (Auto) Neut % (Auto) Lymph % (Auto) [place] % (Auto) Eos % (Auto) Baso % (Auto) Absolute Neuts (auto) Absolute Lymphs (auto) Total Counted Nucleated RBC % Diff Path Review Absolute Retic Sodium Potassium Chloride Carbon Dioxide Anion Gap BUN Creatinine Estim Creat Clear Calc Est GFR (MDRD) Af Amer Est GFR (MDRD) Non-Af BUN/Creatinine Ratio Glucose Calcium POC Glucose 253 H 243 H 298 H 05/29/18 05/29/18 05/29/18 04:17 04:50 04:50 WBC 7.6 RBC 4.41 Hgb 11.5 L Hct 35.5 L MCV 80.5 L MCH 26.1 L MCHC 32.4 RDW 14.1 RDW Differential 41.8 Plt Count 191 MPV 10.2 Immature Gran % (Auto) 1.500 H Neut % (Auto) 72.9 H Lymph % (Auto) 14.4 L [place] % (Auto) 9.3 Eos % (Auto) 1.5 Baso % (Auto) 0.4 Absolute Neuts (auto) 5.5 Absolute Lymphs (auto) 1.09 Total Counted Not Reportable Nucleated RBC % 0.2 Diff Path Review Absolute Retic 0.02 Sodium 136 Potassium 3.8 Chloride 95 L Carbon Dioxide 28.0 Anion Gap 13 BUN 46 H Creatinine 5.54 H Estim Creat Clear Calc 10.49 Est GFR (MDRD) Af Amer 10 L Est GFR (MDRD) Non-Af 8 L BUN/Creatinine Ratio 8.3 L Glucose 283 H Calcium 8.1 L POC Glucose 250 H 05/29/18 05/29/18 05/29/18 06:52 09:47 13:19 WBC RBC Hgb Hct MCV MCH MCHC RDW RDW Differential Plt Count MPV Immature Gran % (Auto) Neut % (Auto) Lymph % (Auto) [place] % (Auto) Eos % (Auto) Baso % (Auto) Absolute Neuts (auto) Absolute Lymphs (auto) Total Counted Nucleated RBC % Diff Path Review Absolute Retic Sodium Potassium Chloride Carbon Dioxide Anion Gap BUN Creatinine Estim Creat Clear Calc Est GFR (MDRD) Af Amer Est GFR (MDRD) Non-Af BUN/Creatinine Ratio Glucose Calcium POC Glucose 283 H 243 H 214 H 05/29/18 05/29/18 05/30/18 16:56 21:28 02:09 WBC RBC Hgb Hct MCV MCH MCHC RDW RDW Differential Plt Count MPV Immature Gran % (Auto) Neut % (Auto) Lymph % (Auto) [place] % (Auto) Eos % (Auto) Baso % (Auto) Absolute Neuts (auto) Absolute Lymphs (auto) Total Counted Nucleated RBC % Diff Path Review Absolute Retic Sodium Potassium Chloride Carbon Dioxide Anion Gap BUN Creatinine Estim Creat Clear Calc Est GFR (MDRD) Af Amer Est GFR (MDRD) Non-Af BUN/Creatinine Ratio Glucose Calcium POC Glucose 166 H 239 H 301 H 05/30/18 05/30/18 05/30/18 04:20 04:20 06:28 WBC 7.5 RBC 4.41 Hgb 11.3 L Hct 35.1 L MCV 79.6 L MCH 25.6 L MCHC 32.2 RDW 14.1 RDW Differential 40.7 Plt Count 249 MPV 9.5 Immature Gran % (Auto) 2.700 H Neut % (Auto) 72.8 H Lymph % (Auto) 10.1 L [place] % (Auto) 11.5 H Eos % (Auto) 2.5 Baso % (Auto) 0.4 Absolute Neuts (auto) 5.5 Absolute Lymphs (auto) 0.76 L Total Counted Not Reportable Nucleated RBC % Diff Path Review May foll Absolute Retic Sodium 135 L Potassium 3.8 Chloride 94 L Carbon Dioxide 26.0 Anion Gap 15 BUN 63 H Creatinine 7.02 H Estim Creat Clear Calc 8.28 Est GFR (MDRD) Af Amer 8 L Est GFR (MDRD) Non-Af 6 L BUN/Creatinine Ratio 9.0 L Glucose 246 H Calcium 8.3 L POC Glucose 263 H Microbiology 05/23/18 15:10 Blood Culture (Wb) - Anticubital Right Blood Culture - Final No growth in 5 days. 05/23/18 15:10 Blood Culture (Wb) - Left Forearm Blood Culture - Final No growth in 5 days. Medical Necessity - Tobacco Use Smoking Status: Never smoker Tobacco Use: Non-smoker Assessment/Plan All Active Problems Chest pain (Acute) Acute respiratory failure with hypoxia (Acute) PNA (pneumonia) (Acute) Acute kidney injury (Acute) RECOMMENDATIONS: 1. Continue antibiotics as ordered. 2. Preferentially wean FiO2 today goal of 40%, then wean PEEP 3. Continue hemodialysis per nephrology recommendations. 4. Continue tube feeds as ordered. 5. Continue current sedation regimen with plans to maintain a RASS of -1. 6. Continue appropriate ICU prophylaxis 7. Continue Risperdal therapy. Increase basal insulin IMPRESSIONS: 1. Acute combined respiratory failure secondary to severe community-acquired pneumonia Patient appears to be responding to therapy. Patient has had volume removal with hemodialysis. No hemodialysis yesterday. Oxygen status precludes spontaneous breathing trial at this time. Will attempt to continue to maintain FiO2, then PEEP as tolerated. Pulmonary recruitment may be an issue given her body habitus. Patient appears to have responded well to addition of Levaquin. We will continue with Levaquin only. Will obtain a chest x-ray for evaluation of parapneumonic effusion versus worsening infiltrate. 2. Acute kidney injury Likely secondary to ATN, as the patient was initially diuresed on admission to the hospital and also developed a component of hypotension on arrival to the ICU. Nephrology is currently following. The patient did not undergo hemodialysis yesterday. Hemodialysis support will be continued per nephrology recommendations. 3. Indeterminate troponin/acute on chronic diastolic heart failure Echocardiogram revealed no wall motion abnormalities. Patient with diastolic abnormalities noted on echocardiogram. Complicated by renal function, but patient appears to be responding well to volume removal. 4. Morbid obesity/diabetes mellitus/anxiety/depression/PTSD Complicates care, management, recovery and prognosis. Continue Accu-Cheks and sliding scale insulin coverage. Tube feeds will be continued. Since baseline psychiatric medications cannot be reinitiated as these cannot be crushed. Will attempt substitution with Risperdal therapy. TIME: 38 minutes of critical care time was spent addressing the patient's acute combined respiratory failure, severe community-acquired pneumonia, acute kidney injury, indeterminate troponin, morbid obesity, review of all data and collaboration with the care team. (6:30 AM to 7:30 AM) Code Visit [id number]: [id number] Critical care first hour
--- NOTE | 2018-05-30 08:00 | RAD_ITS ---
STUDY: X-RAY CHEST REASON FOR EXAM: Female, 57 years old. Acute respiratory failure. Intubation. TECHNIQUE: Single AP portable view of the chest. COMPARISON: Comparison is made with prior study dated May 28, 2018. FINDINGS: An endotracheal tube is in situ. The tip is at 2.8 sinus proximal to the ehsan. A nasogastric tube is seen with tip below the left hemidiaphragm. A right subclavian venous catheter seen with the tip at the junction of the superior vena cava and right atrium. A left-sided internal jugular venous catheter seen with the tip in the midportion of the superior vena cava. Stable infiltrates in the right lung. Stable atelectasis and/or infiltrate at the left lung base. Blunting of both costophrenic angles. Normal size heart. Normal mediastinum and lyric. Normal visualized pulmonary arteries. Normal visualized aortic arch and descending thoracic aorta. Normal visualized thoracic spine. Normal visualized ribs, clavicles, and shoulders. There is no demonstrated abnormality of the visualized soft tissue structures of the upper abdomen. RAD/Chest 1 View (Portable) IMPRESSION: Stable examination. Electronically Signed: Royer Rowe MD at 13:52 EST , Service support ,
--- NOTE | 2018-05-30 08:14 | PCM.PROGNOTE ---
Patient Problems: Active and Suspected Problems Chest pain (Acute) Acute respiratory failure with hypoxia (Acute) PNA (pneumonia) (Acute) Acute kidney injury (Acute) Subjective: Chief complaint: Follow-up after admission for severe community-acquired pneumonia complicated by acute hypoxic and hypercapnic respiratory failure as well as acute renal failure, acute on chronic diastolic CHF and indeterminate troponin. Patient seen and examined. No acute events overnight. She is sedated, intubated, no response. Overnight, oxygen requirement decreased, FiO2 down to 40% and PEEP down to 8 but this morning, oxygen chronic has been increasing. Her blood pressure and heart rate are maintained, no fluids or vasopressors required. She has been afebrile overnight. - Physical Exam General: - - Sedated, intubated. HEENT: Atraumatic, EOMI, Normocephalic Oral: Moist Mucosa, No Gingival or Mucosal Lesions/ Ulcerations Neck: Supple, No JVD, Negative Carotid Bruits, Trachea Midline, Thyroid Normal Size and Texture Lungs: No wheeze, No rales, Diminished, Rhonchi Cardiovascular: Regular rate, Regular Rhythm, Normal S1, Normal S2, PMI Normal Abdomen: Bowel Sounds Present, Soft, Non Tender, Non-Distended, No Hepato-splenomegaly, Obese Extremities: No clubbing, No cyanosis, Edema Skin: No rashes, No breakdown Lymphatic: No Cervical, Supraclavicular, or Inguinal Adenopathy Neurological: - - Unable to assess, patient is intubated and sedated. Psych/Mental Status: - - Unable to assess, patient is sedated and intubated. Vital Signs Temp Pulse Resp BP Pulse Ox 99.4 F H 71 16 97/58 L 93 05/30/18 07:00 05/30/18 07:00 05/30/18 07:00 05/30/18 07:00 05/30/18 07:00 Oxygen Flow Rate (L/min) 11 Oxygen Delivery Method Mechanical Ventilator Weight: 259 lb 14.8 oz Body Mass Index (BMI) 49.7 Finger Stick Blood Glucose 150 Intake and Output for Last 24 Hours 05/28/18 05/29/18 05/30/18 23:59 23:59 23:59 Intake Total 3230 / 3230 3146 / 3146 865.3 / 865.3 Output Total 5245 / 5245 85 / 85 Balance -2014 / 3061 / 3061 839.3 / 839.3 Microbiology Past 72 Hours 05/23/18 15:10 Blood Culture - Final Blood Culture (Wb) - Anticubital Right No growth in 5 days. 05/23/18 15:10 Blood Culture - Final Blood Culture (Wb) - Left Forearm No growth in 5 days. 05/26/18 00:05 Enteric Bacteriology - Final Stool 05/25/18 13:25 Gram Stain - Final Sputum, Induced/Lukens Respiratory Culture - Final Yeast, not Selin albicans 05/24/18 15:00 Gram Stain - Final Sputum, Induced/Lukens Respiratory Culture - Final Laboratory Tests Past 24 Hrs 05/30/18 05/30/18 04:20 04:20 WBC 7.5 RBC 4.41 Hgb 11.3 L Hct 35.1 L MCV 79.6 L MCH 25.6 L MCHC 32.2 RDW 14.1 RDW Differential 40.7 Plt Count 249 MPV 9.5 Immature Gran % (Auto) 2.700 H Neut % (Auto) 72.8 H Lymph % (Auto) 10.[address] [place] % (Auto) 11.5 H Eos % (Auto) 2.5 Baso % (Auto) 0.4 Absolute Neuts (auto) 5.5 Absolute Lymphs (auto) 0.76 L Total Counted Not Reportable Diff Path Review May foll Sodium 135 L Potassium 3.8 Chloride 94 L Carbon Dioxide 26.0 Anion Gap 15 BUN 63 H Creatinine 7.02 H Estim Creat Clear Calc 8.28 Est GFR (MDRD) Af Amer 8 L Est GFR (MDRD) Non-Af 6 L BUN/Creatinine Ratio 9.0 L Glucose 246 H Calcium 8.3 L POC Glucose 05/30/18 05/30/18 05/29/18 06:28 02:09 21:28 POC Glucose 263 H 301 H 239 H 05/29/18 05/29/18 05/29/18 16:56 13:19 09:47 POC Glucose 166 H 214 H 243 H Medical Necessity - Tobacco Use Smoking Status: Never smoker Tobacco Use: Non-smoker Assessment/Plan All Active Problems Chest pain (Acute) Acute respiratory failure with hypoxia (Acute) PNA (pneumonia) (Acute) Acute kidney injury (Acute) This is a 57 years old female patient presented to the emergency room because of shortness of breath, found to have findings consistent with severe community acquired pneumonia as well as acute on chronic diastolic CHF, complicated by acute hypoxic and hypercapnic respiratory failure as well as acute renal failure requiring hemodialysis. #1 acute hypoxic and hypercapnic respiratory failure: Secondary to pneumonia. Still requiring high PEEP and high FiO2. blood pressure and heart rate are maintained, remains on full vent support. She is on sedation. Blood culture showed no growth in 48 hours. Urine culture revealed Klebsiella pneumoniae. She is on IV Levaquin. Plan to continue same treatment, hemodialysis again today, continue IV antibiotics. #2 acute severe community-acquired pneumonia: She is on IV Levaquin. She has been afebrile, no leukocytosis. Blood culture showed no growth in 48 hours. Pneumococcal and Legionella antigen were negative. Urine culture positive for Klebsiella pneumonia. Respiratory panel for viruses were negative. Sputum culture revealed mixed normal respiratory addison, yeast, no Selin. Plan to continue same treatment for now. #3 acute renal failure: Started on hemodialysis yesterday. Kidney function is worsening, no improvement, potassium is normal. Poor urine output. Nephrology on the case. Plan for dialysis again today. #4 acute on chronic diastolic CHF/indeterminate troponin: Responding to hemodialysis. 2D echocardiogram revealed normal LV size and function, ejection fraction was 55%, stage I diastolic dysfunction. Plan to continue with dialysis. #5 type 2 diabetes mellitus: She is on insulin sliding scale as well as Lantus twice daily. Blood sugar is uncontrolled, dose of Lantus adjusted. She has been tolerating tube feeds. #6 depression/anxiety: Medications held, she is on sedation with IV Diprivan and fentanyl. #7 hyperlipidemia: Medication held as well. #8 DVT prophylaxis: Subcu heparin. This note was generated with [employer] software. It may contain incorrect words, spelling, and punctuation that were not noted in checking the note before signing. Code Visit Inpatient E&M: 94576 [facility] L3
--- NOTE | 2018-05-30 08:19 | PN_ITS ---
Patient Problems: Active and Suspected Problems Chest pain (Acute) Acute respiratory failure with hypoxia (Acute) PNA (pneumonia) (Acute) Acute kidney injury (Acute) Subjective: Chief complaint: Follow-up after admission for severe community-acquired pneumonia complicated by acute hypoxic and hypercapnic respiratory failure as we ll as acute renal failure, acute on chronic diastolic CHF and indeterminate troponin. Patient seen and examined. No acute events overnight. She is sedated, intubated, no response. Overnight, oxygen requirement decreased, FiO2 down to 40% and PEEP down to 8 but this morning, oxygen chronic has been increasing. Her blood pressure and heart rate are maintained, no fluids or vasopressors required. She has been afebrile overnight. - Physical Exam General: - - Sedated, intubated. HEENT: Atraumatic, EOMI, Normocephalic Oral: Moist Mucosa, No Gingival or Mucosal Lesions/ Ulcerations Neck: Supple, No JVD, Negative Carotid Bruits, Trachea Midline, Thyroid Normal Size and Texture Lungs: No wheeze, No rales, Diminished, Rhonchi Cardiovascular: Regular rate, Regular Rhythm, Normal S1, Normal S2, PMI Normal Abdomen: Bowel Sounds Present, Soft, Non Tender, Non-Distended, No Hepato- splenomegaly, Obese Extremities: No clubbing, No cyanosis, Edema Skin: No rashes, No breakdown Lymphatic: No Cervical, Supraclavicular, or Inguinal Adenopathy Neurological: - - Unable to assess, patient is intubated and sedated. Psych/Mental Status: - - Unable to assess, patient is sedated and intubated. Vital Signs Temp Pulse Resp BP Pulse Ox 99.4 F H 71 16 97/58 L 93 05/30/18 07:00 05/30/18 07:00 05/30/18 07:00 05/30/18 07:00 05/30/18 07:00 Oxygen Flow Rate (L/min) 11 Oxygen Delivery Method Mechanical Ventilator Weight: 259 lb 14.8 oz Body Mass Index (BMI) 49.7 Finger Stick Blood Glucose 150 Intake and Output for Last 24 Hours 05/28/18 05/29/18 05/30/18 23:59 23:59 23:59 Intake Total 3230 / 3230 3146 / 3146 865.3 / 865.3 Output Total 5245 / 5245 85 / 85 26 / 26 Balance -2014 / 3061 / 3061 839.3 / 839.3 Microbiology Past 72 Hours 05/23/18 15:10 Blood Culture - Final Blood Culture (Wb) - Anticubital Right No growth in 5 days. 05/23/18 15:10 Blood Culture - Final Blood Culture (Wb) - Left Forearm No growth in 5 days. 05/26/18 00:05 Enteric Bacteriology - Final Stool 05/25/18 13:25 Gram Stain - Final Sputum, Induced/Lukens Respiratory Culture - Final Yeast, not Selin albicans 05/24/18 15:00 Gram Stain - Final Sputum, Induced/Lukens Respiratory Culture - Final Laboratory Tests Past 24 Hrs 05/30/18 05/30/18 04:20 04:20 WBC 7.5 RBC 4.41 Hgb 11.3 L Hct 35.1 L MCV 79.6 L MCH 25.6 L MCHC 32.2 RDW 14.1 RDW Differential 40.7 Plt Count 249 MPV 9.5 Immature Gran % (Auto) 2.700 H Neut % (Auto) 72.8 H Lymph % (Auto) 10.1 L [place] % (Auto) 11.5 H Eos % (Auto) 2.5 Baso % (Auto) 0.4 Absolute Neuts (auto) 5.5 Absolute Lymphs (auto) 0.76 L Total Counted Not Reportable Diff Path Review August foll Sodium 135 L Potassium 3.8 Chloride 94 L Carbon Dioxide 26.0 Anion Gap 15 BUN 63 H Creatinine 7.02 H Estim Creat Clear Calc 8.28 Est GFR (MDRD) Af Amer 8 L Est GFR (MDRD) Non-Af 6 L BUN/Creatinine Ratio 9.0 L Glucose 246 H Calcium 8.3 L POC Glucose 05/30/18 05/30/18 05/29/18 06:28 02:09 21:28 POC Glucose 263 H 301 H 239 H 05/29/18 05/29/18 05/29/18 16:56 13:19 09:47 POC Glucose 166 H 214 H 243 H Medical Necessity - Tobacco Use Smoking Status: Never smoker Tobacco Use: Non-smoker Assessment/Plan All Active Problems Chest pain (Acute) Acute respiratory failure with hypoxia (Acute) PNA (pneumonia) (Acute) Acute kidney injury (Acute) This is a 57 years old female patient presented to the emergency room because of shortness of breath, found to have findings consistent with severe community acquired pneumonia as well as acute on chronic diastolic CHF, complicated by acute hypoxic and hypercapnic respiratory failure as well as acute renal failure requiring hemodialysis. #1 acute hypoxic and hypercapnic respiratory failure: Secondary to pneumonia. Still requiring high PEEP and high FiO2. blood pressure and heart rate are maintained, remains on full vent support. She is on sedation. Blood culture showed no growth in 48 hours. Urine culture revealed Klebsiella pneumoniae. She is on IV Levaquin. Plan to continue same treatment, hemodialysis again today, continue IV antibiotics. #2 acute severe community-acquired pneumonia: She is on IV Levaquin. She has been afebrile, no leukocytosis. Blood culture showed no growth in 48 hours. Pneumococcal and Legionella antigen were negative. Urine culture positive for Klebsiella pneumonia. Respiratory panel for viruses were negative. Sputum culture revealed mixed normal respiratory addison, yeast, no Selin. Plan to continue same treatment for now. #3 acute renal failure: Started on hemodialysis yesterday. Kidney function is worsening, no improvement, potassium is normal. Poor urine output. Nephrology on the case. Plan for dialysis again today. #4 acute on chronic diastolic CHF/indeterminate troponin: Responding to hemodialysis. 2D echocardiogram revealed normal LV size and function, ejection fraction was 55%, stage I diastolic dysfunction. Plan to continue with dialysis. #5 type 2 diabetes mellitus: She is on insulin sliding scale as well as Lantus twice daily. Blood sugar is uncontrolled, dose of Lantus adjusted. She has been tolerating tube feeds. #6 depression/anxiety: Medications held, she is on sedation with IV Diprivan and fentanyl. #7 hyperlipidemia: Medication held as well. #8 DVT prophylaxis: Subcu heparin. This note was generated with [employer] software. It may contain incorrect words, spelling, and punctuation that were not noted in checking the note before signing. Code Visit Inpatient E&M: 19415 [facility] L3
--- NOTE | 2018-05-30 09:17 | PN.RENAL_ITS ---
Patient Problems: Active and Suspected Problems Chest pain (Acute) Acute respiratory failure with hypoxia (Acute) PNA (pneumonia) (Acute) Acute kidney injury (Acute) Subjective: Pt remains intubated and sedated. Remains anuric. Cannot do\ ROS - Physical Exam General: - - Sedated and intubated HEENT: Atraumatic Oral: - - ET in place Lungs: Clear to auscultation, - - Equal air entry Abdomen: Bowel Sounds Present, Soft, Non-Distended Extremities: No clubbing, No cyanosis, Edema - _1 edema Skin: No rashes Lymphatic: No Cervical, Supraclavicular, or Inguinal Adenopathy Neurological: - - sedated Vital Signs Temp Pulse Resp BP Pulse Ox 99.2 F H 92 21 H 141/71 H 93 05/30/18 08:00 05/30/18 08:00 05/30/18 08:00 05/30/18 08:00 05/30/18 08:00 Oxygen Flow Rate (L/min) 11 Oxygen Delivery Method Mechanical Ventilator Weight: 117.9 kg Body Mass Index (BMI) 49.7 Finger Stick Blood Glucose 150 Intake and Output for Last 24 Hours 05/28/18 05/29/18 05/30/18 23:59 23:59 23:59 Intake Total 3230 / 3230 3146 / 3146 965.3 / 965.3 Output Total 5245 / 5245 85 / 85 / Balance -2014 / 3061 / 3061 939.3 / 939.3 Microbiology Past 72 Hours 05/23/18 15:10 Blood Culture - Final Blood Culture (Wb) - Anticubital Right No growth in 5 days. 05/23/18 15:10 Blood Culture - Final Blood Culture (Wb) - Left Forearm No growth in 5 days. 05/26/18 00:05 Enteric Bacteriology - Final Stool 05/25/18 13:25 Gram Stain - Final Sputum, Induced/Lukens Respiratory Culture - Final Yeast, not Selin albicans 05/24/18 15:00 Gram Stain - Final Sputum, Induced/Lukens Respiratory Culture - Final Laboratory Tests Past 24 Hrs 05/30/18 05/30/18 04:20 04:20 WBC 7.5 RBC 4.41 Hgb 11.3 L Hct 35.1 L MCV 79.6 L MCH 25.6 L MCHC 32.2 RDW 14.1 RDW Differential 40.7 Plt Count 249 MPV 9.5 Immature Gran % (Auto) 2.700 H Neut % (Auto) 72.8 H Lymph % (Auto) 10.1 L [place] % (Auto) 11.5 H Eos % (Auto) 2.5 Baso % (Auto) 0.4 Absolute Neuts (auto) 5.5 Absolute Lymphs (auto) 0.76 L Total Counted Not Reportable Diff Path Review May foll Sodium 135 L Potassium 3.8 Chloride 94 L Carbon Dioxide 26.0 Anion Gap 15 BUN 63 H Creatinine 7.02 H Estim Creat Clear Calc 8.28 Est GFR (MDRD) Af Amer 8 L Est GFR (MDRD) Non-Af 6 L BUN/Creatinine Ratio 9.0 L Glucose 246 H Calcium 8.3 L POC Glucose 05/30/18 05/30/18 05/29/18 06:28 02:09 21:28 POC Glucose 263 H 301 H 239 H 05/29/18 05/29/18 05/29/18 16:56 13:19 09:47 POC Glucose 166 H 214 H 243 H Medical Necessity - Tobacco Use Smoking Status: Never smoker Tobacco Use: Non-smoker Assessment/Plan All Active Problems Chest pain (Acute) Acute respiratory failure with hypoxia (Acute) PNA (pneumonia) (Acute) Acute kidney injury (Acute) 1-Acute kidney injury. Normal creatinine 2014. Patient presented with creatinine 1.07 mg/dL. UA showed 100 protein and 100 blood but no RBCs or white cell count. Acute kidney injury is most probably related ATN Another possibility with this UA finding is glomera nephritis. Goodpasture's syndrome and another GN nephritic etiology labs are still pending No recovery of kidney function. Remains anuric Patient is currently hemodialysis dependent for metabolic and volume support. Dialysis started on May 28. Will arrange for the 4th HD session today with 2 L UF .Please keep mean arterial pressure more than 65. Avoid nephrotoxic. Dose antibiotics and medication for patient on hemodialysis Continue to monitor for kidney function recovery 2-Acute respiratory failure from bilateral pneumonia. Ventilator support as per the astrophysics teacher. [id number] pneumonia. On levaquin which is appropriately dosed for HD patient. \Renal team will continue to follow. Please call with any question or concern at my cell phone #[phone]
[2018-05-30] MEDS: Chlorhexidine 15 ML PO ×2 (09:55→21:16)
[2018-05-30] MEDS: RisperiDONE 1 MG Tablet 2 MG GT ×2 (09:56→21:11)
[2018-05-30] MEDS: Famotidine 20 MG Tablet GT (10:03)
[2018-05-30] MEDS: levoFLOXacin IV 500 MG/100 ML BAG 100 MG IV (10:03)
[2018-05-30] MEDS: 0.9% NaCl IVPB Med Flush (250 mL) 15 ML IV (10:04)
--- NOTE | 2018-05-30 10:10 | CASEMGMT ---
Addendum entered by Terra Tran 05/30/18 11:59: SW searched for pt's sister and brother in law on line, Cathie Meza, in [place], [place](this information was given to SW by pt's aunt). SW was not able to come up with any phone number for sister and brother in law. SW called the police station in [place], [place]([phone]), they are going to try to contact pt's sister and give her this SW's number. Message left also for the fleet manager at hospital requesting names of potential attorneys that may be willing to take on a guardianship case. EVA Bustos, TENANT RELATIONS COORDINATOR Original Note: GASTON participated in ICU rounds this morning, pt remains on a ventilator at this time. As per physician, pt may need a decision maker by the start of the week. GASTON called pt's PCP office, pt only has Delbert Waller listed as a salesperson jewelry. GASTON called [facility], pt has not been a pt there, they have no information. GASTON called pt's aunt again, Mary Grace Peterson. Mary Grace explained that it's not that she does not want to be involved w/pt, but she is not pt's next of kin. She clearly states she would not want to be pt's guardian, would only make decisions if it were dire. She states she would rather other make decisions in regard to the pt. Mary Grace explains pt has been 4 or 5 times. She knows she has children, but only knows the first name of a daughter named Courtney who lives in [place]. She states pt is bipolar, has taken drugs much of her life, has been in care home for it. Mary Grace states pt borrowed a lot of money from her when she was with her last in [place]. Pt told aunt she would come live w/her and help her, but this did not work out. Pt had to move out at that point and came to [place]. Mary Grace explains that pt always finds a man to stay with. She states pt has been good about paying her and she is paying her aunt back at $5/month. Pt's aunt states the only contact she has w/pt is sending her cards on holidays and receiving the $5/month from her. She states she loves her because she is family, but, I don't want to be involved in her life. Pt's aunt was able to give this SW additional demographic information on pt's brother and sister. SW will do another Google search to see if pt's brother or sister can be located. SW will continue to follow. EVA Bustos, TENANT RELATIONS COORDINATOR
[2018-05-30 10:21] LABS: Bedside Glucose 287 mg/dL (70-110)
[2018-05-30 10:58] LABS: Hep B Surface Antibodies Reactive (.); Hepatitis B Core AB IgM Negative (Negative)
[2018-05-30 11:10] LABS: ANTINUCLEAR ANTIBODIES DIRECT Negative (Negative)
[2018-05-30 12:37] LABS: Pathologist Review Reviewed
--- NOTE | 2018-05-30 12:53 | CASEMGMT ---
Addendum entered by Terra Tran 05/30/18 13:17: Pt's brother in law, Romeo Meza, called this SW back. SW explained the medical situation w/pt, and that we are looking for a family member that may be willing to make decisions for pt. Romeo states that his , pt's sister Adrienne, has not spoken to pt in 4 or 5 years. He states that pt has had problems with drugs. He states pt has not lived on the [facility] for 30 years. Romeo states that he and Adrienne would not be willing to make decisions for pt. SW asked about pt's children. He knows of one son and knows that he would not make decisions for pt. SW asked about pt's father, Romeo states that pt's father will not talk to pt. SW asked about pt's brother Subhash, Romeo states that Subhash is worse than her father and also will not speak to pt. At this point, there are no family members willing to make medical decisions for this pt. EVA Bustos, COLLECTION AGENT Original Note: GASTON received a call back from pt's Aunt Mary Grace Peterson. She reached out to her brother(another uncle of pt), and got a couple of phone numbers. The number for pt's father Guerrero Currie is [phone], and a number for pt's sister Adrienne Meza is [phone]. SW called the number for Roselia, and this number is out of order. GASTON called the number for Guerrero Currie, got a voice mail with a female voice, SW did leave a message to call this SW back. EVA Bustos, COLLECTION AGENT
[2018-05-30 14:41] LABS: Bedside Glucose 148 mg/dL (70-110)
[2018-05-30] MEDS: Heparin 10,000 UNITS/10 ML Vial IV (15:53)
--- NOTE | 2018-05-30 16:30 | DIALYSIS ---
Hemodialysis completed. line is positional and had some issues with clotting and tx running with pt fighting vent. See tx run sheet. -2200ml off. Stable t/o. CVC closed with Heparin. Report to Lois MONTOYA
[2018-05-30 17:31] LABS: Bedside Glucose 146 mg/dL (70-110)
[2018-05-30 21:42] LABS: Bedside Glucose 235 mg/dL (70-110)
[2018-05-30] MEDS: Menthol/Lanolin/Calamine/Znox 113 GM Tube 1 APPLIC TOPICAL (22:10)
[2018-05-31] VITALS (41 sets, daily range): BP systolic 77–133; BP diastolic 45–83; PULSE 58–100; RESP 15–30; TEMP 37.1–37.7; O2SAT 50–100
[2018-05-31] MEDS: fentaNYL drip 100 ML 15 MCG IV ×3 (01:27→18:40)
[2018-05-31] MEDS: Insulin Lispro 100 UNIT/ML INSULN.PEN SC ×6 (01:28→21:04)
[2018-05-31 01:36] LABS: Bedside Glucose 281 mg/dL (70-110)
[2018-05-31] MEDS: Propofol 10MG/Ml 1,000 MG/100 ML Bottle 8.4 MG CONT INF (02:38)
[2018-05-31] MEDS: Vital AF 1.2 Cal Liquid 1,000 ML 60 ML GT ×2 (04:00→21:11)
[2018-05-31 05:07] LABS: Anion Gap 13 (5-15); BUN 43 mg/dL (7-18); Calcium,Total 8.4 mg/dL (8.5-10.1); Chloride 94 mmol/L (98-107); Creatinine, Serum 5.39 mg/dL (0.55-1.02); EST Glomerular Filtration Rate 9 mL/min (>60); Est Glom Filt Rate - Afr Amer 11 mL/min (>60); Estimated Creatinine Clearance 10.78 ml/min; Glucose 254 mg/dL (74-106); Potassium 3.7 mmol/L (3.5-5.1); Sodium Level 134 mmol/L (136-145)
[2018-05-31 05:11] LABS: Hematocrit 34.3 % (37-47); Hemoglobin 11.2 g/dl (12.0-15.0); Mean Corp Hgb Conc 32.7 g/gl (32-36); Mean Corpuscular Hgb 26.1 pg (27.0-32.0); Mean Platelet Vol. 9.7 fl (6.2-12.0); Platelet Count 262 K/mm3 (150-450); RBC Distribution Width CV 14.3 % (11.6-14.6); RBC Distribution Width SD 41.5 fl (35.1-43.9); Red Blood Count 4.29 M/mm3 (4.2-5.4); White Blood Count 7.6 K/mm3 (4.4-11.0)
[2018-05-31 05:18] LABS: Differential Indicated MANUAL DIFF; POSITIVE COUNT YES; POSITIVE DIFFERENTIAL NO; POSITIVE MORPHOLOGY YES
[2018-05-31] MEDS: Heparin Injection (Vial) 5,000 UNIT/ML VIAL 5000 UNIT SC ×3 (05:53→21:04)
[2018-05-31] MEDS: Nystatin Powder 15gm Bottle 1 APPLIC TOPICAL ×3 (05:54→21:07)
[2018-05-31] MEDS: 0.9% NaCl Peripheral Flush Adult/Peds IV ×2 (05:58→10:44)
[2018-05-31] MEDS: CHLORHEXIDINE GLUC 2% CLOTH 1 EACH TOWELETTE TOPICAL (05:58)
[2018-05-31 06:06] LABS: Bedside Glucose 261 mg/dL (70-110)
--- NOTE | 2018-05-31 06:47 | PN_ITS ---
Subjective: Patient did okay overnight. Patient did receive hemodialysis with significant fluid removal. However, attempts to wean FiO2 and PEEP have not been successful. Patient did have tube feeds held during dialysis leading to lower blood sugars. Nursing continues to report significant agitation with any change in sedation. General: - - Intubated and sedated. Good vent synchrony noted. Morbidly obese. HEENT: Atraumatic, PERRLA, EOMI, Normocephalic, - - Scleral injection without icterus Oral: Moist Mucosa, No Gingival or Mucosal Lesions/ Ulcerations Neck: Supple, No JVD, No Nodes, Trachea Midline, - - IJ TLC is clean, dry and intact. Lungs: No rhonchi, No wheeze, No rales, Diminished, - - Symmetric expansion. No dullness to percussion. Cardiovascular: Normal S1, Normal S2, No murmurs, No rub noted, No Gallop, Tachycardic Abdomen: Bowel Sounds Present, Soft, Non Tender, Non-Distended, Obese Extremities: No clubbing, No cyanosis, Edema Skin: - - No significant change compared to previous Musculoskeletal: No Tenderness to Palpation of Joints or Extremities Lymphatic: No Cervical, Supraclavicular, or Inguinal Adenopathy Neurological: Cranial nerves II-XII grossly intact, Neuro grossly intact Psych/Mental Status: Impulsive Vital Signs Temp Pulse Resp BP Pulse Ox 37.5 C H 83 16 120/70 92 05/31/18 06:00 05/31/18 06:00 05/31/18 06:00 05/31/18 06:00 05/31/18 06:00 Oxygen Flow Rate (L/min) 11 Oxygen Delivery Method Mechanical Ventilator Weight: 137.3 kg Body Mass Index (BMI) 49.7 Finger Stick Blood Glucose 150 Intake and Output for Last 24 Hours 05/29/18 05/30/18 05/31/18 23:59 23:59 23:59 Intake Total 3146 / 3146 2436.3 / 2436.3 1161 / 1161 Output Total 85 / 85 4451 / 4451 70 / 70 Balance 3061 / 3061 -2013.7 / -2013.7 1091 / 1091 Labs (Last 48 Hours) 05/25/18 05/26/18 05/29/18 12:40 16:40 06:52 WBC RBC Hgb Hct MCV MCH MCHC RDW RDW Differential Plt Count MPV Immature Gran % (Auto) Neut % (Auto) Lymph % (Auto) [place] % (Auto) Eos % (Auto) Baso % (Auto) Absolute Neuts (auto) Absolute Lymphs (auto) Total Counted Diff Path Review Sodium Potassium Chloride Carbon Dioxide Anion Gap BUN Creatinine Estim Creat Clear Calc Est GFR (MDRD) Af Amer Est GFR (MDRD) Non-Af BUN/Creatinine Ratio Glucose Calcium ELANA Screen Negative Hep Bs Antigen Negative Hep Bs Antibody Reactive Hep B Core IgM Ab Negative POC Glucose 283 H 05/29/18 05/29/18 05/29/18 09:47 13:19 16:56 WBC RBC Hgb Hct MCV MCH MCHC RDW RDW Differential Plt Count MPV Immature Gran % (Auto) Neut % (Auto) Lymph % (Auto) [place] % (Auto) Eos % (Auto) Baso % (Auto) Absolute Neuts (auto) Absolute Lymphs (auto) Total Counted Diff Path Review Sodium Potassium Chloride Carbon Dioxide Anion Gap BUN Creatinine Estim Creat Clear Calc Est GFR (MDRD) Af Amer Est GFR (MDRD) Non-Af BUN/Creatinine Ratio Glucose Calcium ELANA Screen Hep Bs Antigen Hep Bs Antibody Hep B Core IgM Ab POC Glucose 243 H 214 H 166 H 05/29/18 05/30/18 05/30/18 21:28 02:09 04:20 WBC 7.5 RBC 4.41 Hgb 11.3 L Hct 35.1 L MCV 79.6 L MCH 25.6 L MCHC 32.2 RDW 14.1 RDW Differential 40.7 Plt Count 249 MPV 9.5 Immature Gran % (Auto) 2.700 H Neut % (Auto) 72.8 H Lymph % (Auto) 10.1 L [place] % (Auto) 11.5 H Eos % (Auto) 2.5 Baso % (Auto) 0.4 Absolute Neuts (auto) 5.5 Absolute Lymphs (auto) 0.76 L Total Counted Not Reportable Diff Path Review Reviewed Sodium Potassium Chloride Carbon Dioxide Anion Gap BUN Creatinine Estim Creat Clear Calc Est GFR (MDRD) Af Amer Est GFR (MDRD) Non-Af BUN/Creatinine Ratio Glucose Calcium ELANA Screen Hep Bs Antigen Hep Bs Antibody Hep B Core IgM Ab POC Glucose 239 H 301 H 05/30/18 05/30/18 05/30/18 04:20 06:28 09:52 WBC RBC Hgb Hct MCV MCH MCHC RDW RDW Differential Plt Count MPV Immature Gran % (Auto) Neut % (Auto) Lymph % (Auto) [place] % (Auto) Eos % (Auto) Baso % (Auto) Absolute Neuts (auto) Absolute Lymphs (auto) Total Counted Diff Path Review Sodium 135 L Potassium 3.8 Chloride 94 L Carbon Dioxide 26.0 Anion Gap 15 BUN 63 H Creatinine 7.02 H Estim Creat Clear Calc 8.28 Est GFR (MDRD) Af Amer 8 L Est GFR (MDRD) Non-Af 6 L BUN/Creatinine Ratio 9.0 L Glucose 246 H Calcium 8.3 L ELANA Screen Hep Bs Antigen Hep Bs Antibody Hep B Core IgM Ab POC Glucose 263 H 287 H 05/30/18 05/30/18 05/30/18 14:34 16:57 21:04 WBC RBC Hgb Hct MCV MCH MCHC RDW RDW Differential Plt Count MPV Immature Gran % (Auto) Neut % (Auto) Lymph % (Auto) [place] % (Auto) Eos % (Auto) Baso % (Auto) Absolute Neuts (auto) Absolute Lymphs (auto) Total Counted Diff Path Review Sodium Potassium Chloride Carbon Dioxide Anion Gap BUN Creatinine Estim Creat Clear Calc Est GFR (MDRD) Af Amer Est GFR (MDRD) Non-Af BUN/Creatinine Ratio Glucose Calcium ELANA Screen Hep Bs Antigen Hep Bs Antibody Hep B Core IgM Ab POC Glucose 148 H 146 H 235 H 05/31/18 05/31/18 05/31/18 01:25 04:25 04:25 WBC 7.6 RBC 4.29 Hgb 11.2 L Hct 34.3 L MCV 80.0 L MCH 26.1 L MCHC 32.7 RDW 14.3 RDW Differential 41.5 Plt Count 262 MPV 9.7 Immature Gran % (Auto) Neut % (Auto) Not Reportable Lymph % (Auto) [place] % (Auto) Eos % (Auto) Baso % (Auto) Absolute Neuts (auto) Not Reportable Absolute Lymphs (auto) Total Counted Pending Diff Path Review Sodium 134 L Potassium 3.7 Chloride 94 L Carbon Dioxide 27.0 Anion Gap 13 BUN 43 H Creatinine 5.39 H Estim Creat Clear Calc 10.78 Est GFR (MDRD) Af Amer 11 L Est GFR (MDRD) Non-Af 9 L BUN/Creatinine Ratio 8.0 L Glucose 254 H Calcium 8.4 L ELANA Screen Hep Bs Antigen Hep Bs Antibody Hep B Core IgM Ab POC Glucose 281 H 05/31/18 05:50 WBC RBC Hgb Hct MCV MCH MCHC RDW RDW Differential Plt Count MPV Immature Gran % (Auto) Neut % (Auto) Lymph % (Auto) [place] % (Auto) Eos % (Auto) Baso % (Auto) Absolute Neuts (auto) Absolute Lymphs (auto) Total Counted Diff Path Review Sodium Potassium Chloride Carbon Dioxide Anion Gap BUN Creatinine Estim Creat Clear Calc Est GFR (MDRD) Af Amer Est GFR (MDRD) Non-Af BUN/Creatinine Ratio Glucose Calcium ELANA Screen Hep Bs Antigen Hep Bs Antibody Hep B Core IgM Ab POC Glucose 261 H Microbiology 05/23/18 15:10 Blood Culture (Wb) - Anticubital Right Blood Culture - Final No growth in 5 days. 05/23/18 15:10 Blood Culture (Wb) - Left Forearm Blood Culture - Final No growth in 5 days. Clinical Impression(s) from Imaging Studies Chest X-Ray 05/30/18 08:00 IMPRESSION: Stable examination. Electronically Signed: Royer Rowe MD at 13:52 EST , Service support , Medical Necessity - Tobacco Use Smoking Status: Never smoker Tobacco Use: Non-smoker Assessment/Plan All Active Problems Chest pain (Acute) Acute respiratory failure with hypoxia (Acute) PNA (pneumonia) (Acute) Acute kidney injury (Acute) RECOMMENDATIONS: 1. Continue antibiotics as ordered. 2. Preferentially wean FiO2 today goal of 40%, then wean PEEP 3. Continue hemodialysis per nephrology recommendations. 4. Continue tube feeds as ordered. 5. Attempt transition to Precedex therapy with plans to maintain a RASS of - 1. 6. Continue appropriate ICU prophylaxis 7. Continue Risperdal therapy. Increase basal insulin IMPRESSIONS: 1. Acute combined respiratory failure secondary to severe community-acquired pneumonia Some concern about patient's failure to respond to volume removal yesterday. Patient is much more hemodynamically stable and appears to have pneumonia under control with Levaquin therapy. Patient is still having increased PEEP and FiO2 requirements. Will attempt to transition to Precedex therapy to see if a spontaneous breathing trial can be attempted. Clinical suspicion is that patient may require tracheostomy and PEG secondary to failure to progress. 2. Acute kidney injury Likely secondary to ATN, as the patient was initially diuresed on admission to the hospital and also developed a component of hypotension on arrival to the ICU. Nephrology is currently following. The patient did undergo hemodialysis yesterday. Hemodialysis support will be continued per nephrology recommendations. 3. Indeterminate troponin/acute on chronic diastolic heart failure Echocardiogram revealed no wall motion abnormalities. Patient with diastolic abnormalities noted on echocardiogram. Complicated by renal function, but patient appears to be responding well to volume removal. 4. Morbid obesity/diabetes mellitus/anxiety/depression/PTSD Complicates care, management, recovery and prognosis. Continue Accu-Cheks and sliding scale insulin coverage. Tube feeds will be continued. Since baseline psychiatric medications cannot be reinitiated as these cannot be crushed. Will attempt substitution with Risperdal therapy. 5. Social issues Patient is currently intubated and sedated. Multiple attempts by social work to touch base with family members have not resulted in anyone willing to speak on her behalf. Patient reportedly has estranged herself from multiple family members. Will likely need to proceed with probate documentation to see if a guardian can be arranged for tracheostomy and PEG if aggressive measures are to be continued. TIME: 35 minutes of critical care time was spent addressing the patient's acute combined respiratory failure, severe community-acquired pneumonia, acute kidney injury, indeterminate troponin, morbid obesity, review of all data and collaboration with the care team. (5:30 AM to 6:30 AM) Code Visit 9xxxx: [id number] Critical care first hour
[2018-05-31 06:55] LABS: Eosinophil 2 % (0-5); Hypochromasia 1+; Lymphocyte 11 % (19-41); Microcytosis 1+; Monocyte 10 % (0-10); Neutrophil-Band 2 % (0-5); Neutrophil-Segmented 75 % (47-70); Total Cells Counted 100 (MANUAL DIFF)
[2018-05-31 06:56] LABS: Platelet Estimate ADEQUATE (ADEQ); Polychromasia 1+
[2018-05-31 06:57] LABS: Absolute Lymphocyte Count 0.84 X10^3/ul (0.83-4.51); Absolute Neutrophil Count 5.9 X10^3/uL (2.0-7.7)
[2018-05-31] MEDS: Ipratropium/Albuterol Sulfate 3 ML AMPUL.NEB INHALATION ×3 (06:59→18:55)
--- NOTE | 2018-05-31 08:08 | PCM.PROGNOTE ---
Patient Problems: Active and Suspected Problems Chest pain (Acute) Acute respiratory failure with hypoxia (Acute) PNA (pneumonia) (Acute) Acute kidney injury (Acute) Subjective: Chief complaint: Follow-up after admission for severe community-acquired pneumonia complicated by acute hypoxic and hypercapnic respiratory failure as well as acute renal failure, acute on chronic diastolic CHF and indeterminate troponin. Patient seen and examined. No acute events overnight. This morning, she is alert, spontaneous eye opening, not following commands. She did receive hemodialysis yesterday. Prior to performing FiO2 and PEEP was not successful. Maximum temperature overnight was 99.9 Fahrenheit, blood pressure and heart rate are maintained, remains on mechanical ventilation. - Physical Exam General: Alert, Cooperative, - - Minimally agitated. HEENT: Atraumatic, PERRLA, EOMI, Normocephalic Oral: Moist Mucosa, No Gingival or Mucosal Lesions/ Ulcerations Neck: Supple, No JVD, Negative Carotid Bruits, Trachea Midline, Thyroid Normal Size and Texture Lungs: No wheeze, No rales, Diminished, Rhonchi, Short of Breath Cardiovascular: Regular rate, Regular Rhythm, Normal S1, Normal S2, PMI Normal Abdomen: Bowel Sounds Present, Soft, Non Tender, Non-Distended, No Hepato-splenomegaly, Obese Extremities: No clubbing, No cyanosis, Edema Skin: No rashes, No breakdown Lymphatic: No Cervical, Supraclavicular, or Inguinal Adenopathy Neurological: Cranial nerves II-XII grossly intact, - - Patient is able to move all limbs. Psych/Mental Status: - - Unable to assess. Vital Signs Temp Pulse Resp BP Pulse Ox 99.5 F H 86 16 121/68 H 95 05/31/18 06:00 05/31/18 07:20 05/31/18 07:00 05/31/18 07:00 05/31/18 07:00 Oxygen Flow Rate (L/min) 11 Oxygen Delivery Method Mechanical Ventilator Weight: 302 lb 11.115 oz Body Mass Index (BMI) 49.7 Finger Stick Blood Glucose 150 Intake and Output for Last 24 Hours 05/29/18 05/30/18 05/31/18 23:59 23:59 23:59 Intake Total 3146 / 3146 2436.3 / 2436.3 1161 / 1161 Output Total 85 / 85 4451 / 4451 70 / 70 Balance 3061 / 3061 - / -7 1091 / 1091 Microbiology Past 72 Hours 05/23/18 15:10 Blood Culture - Final Blood Culture (Wb) - Anticubital Right No growth in 5 days. 05/23/18 15:10 Blood Culture - Final Blood Culture (Wb) - Left Forearm No growth in 5 days. Laboratory Tests Past 24 Hrs 05/25/18 05/26/18 05/30/18 12:40 16:40 04:20 WBC RBC Hgb Hct MCV MCH MCHC RDW RDW Differential Plt Count MPV Neut % (Auto) Absolute Neuts (auto) Absolute Lymphs (auto) Total Counted Neutrophils % (Manual) Band Neutrophils % Lymphocytes % (Manual) Monocytes % (Manual) Eosinophils % (Manual) Diff Path Review Reviewed Platelet Estimate Polychromasia Hypochromasia Microcytosis Sodium Potassium Chloride Carbon Dioxide Anion Gap BUN Creatinine Estim Creat Clear Calc Est GFR (MDRD) Af Amer Est GFR (MDRD) Non-Af BUN/Creatinine Ratio Glucose Calcium ELANA Screen Negative Hep Bs Antigen Negative Hep Bs Antibody Reactive Hep B Core IgM Ab Negative 05/31/18 05/31/18 04:25 04:25 WBC 7.6 RBC 4.29 Hgb 11.2 L Hct 34.3 L MCV 80.0 L MCH 26.1 L MCHC 32.7 RDW 14.3 RDW Differential 41.5 Plt Count 262 MPV 9.7 Neut % (Auto) Not Reportable Absolute Neuts (auto) 5.9 Absolute Lymphs (auto) 0.84 Total Counted 100 Neutrophils % (Manual) 75 H Band Neutrophils % 2 Lymphocytes % (Manual) 11 L Monocytes % (Manual) 10 Eosinophils % (Manual) 2 Diff Path Review May foll Platelet Estimate ADEQUATE Polychromasia 1+ Hypochromasia 1+ Microcytosis 1+ Sodium 134 L Potassium 3.7 Chloride 94 L Carbon Dioxide 27.0 Anion Gap 13 BUN 43 H Creatinine 5.39 H Estim Creat Clear Calc 10.78 Est GFR (MDRD) Af Amer 11 L Est GFR (MDRD) Non-Af 9 L BUN/Creatinine Ratio 8.0 L Glucose 254 H Calcium 8.4 L ELANA Screen Hep Bs Antigen Hep Bs Antibody Hep B Core IgM Ab POC Glucose 05/31/18 05/31/18 05/30/18 05:50 01:25 21:04 POC Glucose 261 H 281 H 235 H 05/30/18 05/30/18 05/30/18 16:57 14:34 09:52 POC Glucose 146 H 148 H 287 H Medical Necessity - Tobacco Use Smoking Status: Never smoker Tobacco Use: Non-smoker Assessment/Plan All Active Problems Chest pain (Acute) Acute respiratory failure with hypoxia (Acute) PNA (pneumonia) (Acute) Acute kidney injury (Acute) This is a 57 years old female patient presented to the emergency room because of shortness of breath, found to have findings consistent with severe community acquired pneumonia as well as acute on chronic diastolic CHF, complicated by acute hypoxic and hypercapnic respiratory failure as well as acute renal failure requiring hemodialysis. #1 acute hypoxic and hypercapnic respiratory failure: Secondary to pneumonia. Remains on mechanical ventilation, trial of weaning PEEP and FiO2 has been unsuccessful. Blood pressure and heart rate are maintained, still having spikes of low-grade fever. Blood culture showed no growth in 48 hours. Urine culture revealed Klebsiella pneumoniae. She is on IV Levaquin. Plan to continue same treatment, hemodialysis according to nephrology recommendation, start Precedex for sedation, continue IV antibiotics. #2 acute severe community-acquired pneumonia: Remained on IV Levaquin. She has been afebrile, no leukocytosis. Blood culture showed no growth in 48 hours. Pneumococcal and Legionella antigen were negative. Urine culture positive for Klebsiella pneumonia. Respiratory panel for viruses were negative. Sputum culture revealed mixed normal respiratory addison, yeast, no Selin. Plan to continue same treatment for now. #3 acute renal failure: Received hemodialysis yesterday. BUN and creatinine started to improve, still having poor urine output. Nephrology on the case. Patient will probably need hemodialysis again today. #4 acute on chronic diastolic CHF/indeterminate troponin: Responding to hemodialysis. 2D echocardiogram revealed normal LV size and function, ejection fraction was 55%, stage I diastolic dysfunction. Plan to continue with dialysis according to nephrology. #5 type 2 diabetes mellitus: She is on insulin sliding scale as well as Lantus twice daily. Blood sugar started to improve, since. She has been tolerating tube feeds. #6 depression/anxiety: Medications held, she is on sedation with IV Precedex and fentanyl. #7 hyperlipidemia: Medication held as well. #8 DVT prophylaxis: Subcu heparin. This note was generated with [employer] software. It may contain incorrect words, spelling, and punctuation that were not noted in checking the note before signing. Code Visit Inpatient E&M: 71721 Subs Hosp L3
--- NOTE | 2018-05-31 08:14 | PN_ITS ---
Patient Problems: Active and Suspected Problems Chest pain (Acute) Acute respiratory failure with hypoxia (Acute) PNA (pneumonia) (Acute) Acute kidney injury (Acute) Subjective: Chief complaint: Follow-up after admission for severe community-acquired pneumonia complicated by acute hypoxic and hypercapnic respiratory failure as we ll as acute renal failure, acute on chronic diastolic CHF and indeterminate troponin. Patient seen and examined. No acute events overnight. This morning, she is alert, spontaneous eye opening, not following commands. She did receive hemodialysis yesterday. Prior to performing FiO2 and PEEP was not successful. Maximum temperature overnight was 99.9 Fahrenheit, blood pressure and heart rate are maintained, remains on mechanical ventilation. - Physical Exam General: Alert, Cooperative, - - Minimally agitated. HEENT: Atraumatic, PERRLA, EOMI, Normocephalic Oral: Moist Mucosa, No Gingival or Mucosal Lesions/ Ulcerations Neck: Supple, No JVD, Negative Carotid Bruits, Trachea Midline, Thyroid Normal Size and Texture Lungs: No wheeze, No rales, Diminished, Rhonchi, Short of Breath Cardiovascular: Regular rate, Regular Rhythm, Normal S1, Normal S2, PMI Normal Abdomen: Bowel Sounds Present, Soft, Non Tender, Non-Distended, No Hepato- splenomegaly, Obese Extremities: No clubbing, No cyanosis, Edema Skin: No rashes, No breakdown Lymphatic: No Cervical, Supraclavicular, or Inguinal Adenopathy Neurological: Cranial nerves II-XII grossly intact, - - Patient is able to move all limbs. Psych/Mental Status: - - Unable to assess. Vital Signs Temp Pulse Resp BP Pulse Ox 99.5 F H 86 16 121/68 H 95 05/31/18 06:00 05/31/18 07:20 05/31/18 07:00 05/31/18 07:00 05/31/18 07:00 Oxygen Flow Rate (L/min) 11 Oxygen Delivery Method Mechanical Ventilator Weight: 302 lb 11.115 oz Body Mass Index (BMI) 49.7 Finger Stick Blood Glucose 150 Intake and Output for Last 24 Hours 05/29/18 05/30/18 05/31/18 23:59 23:59 23:59 Intake Total 3146 / 3146 2436.3 / 2436.3 1161 / 1161 Output Total 85 / 85 4451 / 4451 70 / 70 Balance 3061 / 3061 -2014.7 / -2013.7 1091 / 1091 Microbiology Past 72 Hours 05/23/18 15:10 Blood Culture - Final Blood Culture (Wb) - Anticubital Right No growth in 5 days. 05/23/18 15:10 Blood Culture - Final Blood Culture (Wb) - Left Forearm No growth in 5 days. Laboratory Tests Past 24 Hrs 05/25/18 05/26/18 05/30/18 12:40 16:40 04:20 WBC RBC Hgb Hct MCV MCH MCHC RDW RDW Differential Plt Count MPV Neut % (Auto) Absolute Neuts (auto) Absolute Lymphs (auto) Total Counted Neutrophils % (Manual) Band Neutrophils % Lymphocytes % (Manual) Monocytes % (Manual) Eosinophils % (Manual) Diff Path Review Reviewed Platelet Estimate Polychromasia Hypochromasia Microcytosis Sodium Potassium Chloride Carbon Dioxide Anion Gap BUN Creatinine Estim Creat Clear Calc Est GFR (MDRD) Af Amer Est GFR (MDRD) Non-Af BUN/Creatinine Ratio Glucose Calcium ELANA Screen Negative Hep Bs Antigen Negative Hep Bs Antibody Reactive Hep B Core IgM Ab Negative 05/31/18 05/31/18 04:25 04:25 WBC 7.6 RBC 4.29 Hgb 11.2 L Hct 34.3 L MCV 80.0 L MCH 26.1 L MCHC 32.7 RDW 14.3 RDW Differential 41.5 Plt Count 262 MPV 9.7 Neut % (Auto) Not Reportable Absolute Neuts (auto) 5.9 Absolute Lymphs (auto) 0.84 Total Counted 100 Neutrophils % (Manual) 75 H Band Neutrophils % 2 Lymphocytes % (Manual) 11 L Monocytes % (Manual) 10 Eosinophils % (Manual) 2 Diff Path Review May foll Platelet Estimate ADEQUATE Polychromasia 1+ Hypochromasia 1+ Microcytosis 1+ Sodium 134 L Potassium 3.7 Chloride 94 L Carbon Dioxide 27.0 Anion Gap 13 BUN 43 H Creatinine 5.39 H Estim Creat Clear Calc 10.78 Est GFR (MDRD) Af Amer 11 L Est GFR (MDRD) Non-Af 9 L BUN/Creatinine Ratio 8.0 L Glucose 254 H Calcium 8.4 L ELANA Screen Hep Bs Antigen Hep Bs Antibody Hep B Core IgM Ab POC Glucose 05/31/18 05/31/18 05/30/18 05:50 01:25 21:04 POC Glucose 261 H 281 H 235 H 02/20/19 02/20/19 02/20/19 16:57 14:34 09:52 POC Glucose 146 H 148 H 287 H Medical Necessity - Tobacco Use Smoking Status: Never smoker Tobacco Use: Non-smoker Assessment/Plan All Active Problems Chest pain (Acute) Acute respiratory failure with hypoxia (Acute) PNA (pneumonia) (Acute) Acute kidney injury (Acute) This is a 57 years old female patient presented to the emergency room because of shortness of breath, found to have findings consistent with severe community acquired pneumonia as well as acute on chronic diastolic CHF, complicated by acute hypoxic and hypercapnic respiratory failure as well as acute renal failure requiring hemodialysis. #1 acute hypoxic and hypercapnic respiratory failure: Secondary to pneumonia. Remains on mechanical ventilation, trial of weaning PEEP and FiO2 has been unsuccessful. Blood pressure and heart rate are maintained, still having spikes of low-grade fever. Blood culture showed no growth in 48 hours. Urine culture revealed Klebsiella pneumoniae. She is on IV Levaquin. Plan to continue same treatment, hemodialysis according to nephrology recommendation, start Precedex for sedation, continue IV antibiotics. #2 acute severe community-acquired pneumonia: Remained on IV Levaquin. She has been afebrile, no leukocytosis. Blood culture showed no growth in 48 hours. Pneumococcal and Legionella antigen were negative. Urine culture positive for Klebsiella pneumonia. Respiratory panel for viruses were negative. Sputum culture revealed mixed normal respiratory addison, yeast, no Selin. Plan to continue same treatment for now. #3 acute renal failure: Received hemodialysis yesterday. BUN and creatinine started to improve, still having poor urine output. Nephrology on the case. Patient will probably need hemodialysis again today. #4 acute on chronic diastolic CHF/indeterminate troponin: Responding to hemodialysis. 2D echocardiogram revealed normal LV size and function, ejection fraction was 55%, stage I diastolic dysfunction. Plan to continue with dialysis according to nephrology. #5 type 2 diabetes mellitus: She is on insulin sliding scale as well as Lantus twice daily. Blood sugar started to improve, since. She has been tolerating tube feeds. #6 depression/anxiety: Medications held, she is on sedation with IV Precedex and fentanyl. #7 hyperlipidemia: Medication held as well. #8 DVT prophylaxis: Subcu heparin. This note was generated with [employer] software. It may contain incorrect words, spelling, and punctuation that were not noted in checking the note before signing. Code Visit Inpatient E&M: 04990 Subs Hosp L3
--- NOTE | 2018-05-31 08:51 | PCM.PN.REN ---
Patient Problems: Active and Suspected Problems Chest pain (Acute) Acute respiratory failure with hypoxia (Acute) PNA (pneumonia) (Acute) Acute kidney injury (Acute) Subjective: Remains sedated and intubated. Tolerated HD session well yesterday Remains anuric - Physical Exam General: - - Sedated and intubated HEENT: Atraumatic Oral: Moist Mucosa Neck: Supple, No JVD Lungs: Clear to auscultation, No rhonchi, No wheeze, - - On vent support Cardiovascular: Regular rate, Regular Rhythm, Normal S1, Normal S2 Abdomen: Soft, Non-Distended Extremities: No clubbing, No cyanosis, No edema Skin: No rashes Musculoskeletal: No Muscle Wasting Lymphatic: No Cervical, Supraclavicular, or Inguinal Adenopathy Neurological: - - sedated Vital Signs Temp Pulse Resp BP Pulse Ox 99.8 F H 79 16 109/66 94 05/31/18 08:00 05/31/18 08:00 05/31/18 08:00 05/31/18 08:00 05/31/18 08:00 Oxygen Flow Rate (L/min) 50 Oxygen Delivery Method Mechanical Ventilator Weight: 137.3 kg Body Mass Index (BMI) 49.7 Finger Stick Blood Glucose 150 Intake and Output for Last 24 Hours 05/29/18 05/30/18 05/31/18 23:59 23:59 23:59 Intake Total 3146 / 3146 2436.3 / 2436.3 1161 / 1161 Output Total 85 / 85 4451 / 4451 70 / 70 Balance 3061 / 3061 -7 7 1091 / 1091 Microbiology Past 72 Hours 05/23/18 15:10 Blood Culture - Final Blood Culture (Wb) - Anticubital Right No growth in 5 days. 05/23/18 15:10 Blood Culture - Final Blood Culture (Wb) - Left Forearm No growth in 5 days. Laboratory Tests Past 24 Hrs 05/25/18 05/26/18 05/30/18 12:40 16:40 04:20 WBC RBC Hgb Hct MCV MCH MCHC RDW RDW Differential Plt Count MPV Neut % (Auto) Absolute Neuts (auto) Absolute Lymphs (auto) Total Counted Neutrophils % (Manual) Band Neutrophils % Lymphocytes % (Manual) Monocytes % (Manual) Eosinophils % (Manual) Diff Path Review Reviewed Platelet Estimate Polychromasia Hypochromasia Microcytosis Sodium Potassium Chloride Carbon Dioxide Anion Gap BUN Creatinine Estim Creat Clear Calc Est GFR (MDRD) Af Amer Est GFR (MDRD) Non-Af BUN/Creatinine Ratio Glucose Calcium ELANA Screen Negative Hep Bs Antigen Negative Hep Bs Antibody Reactive Hep B Core IgM Ab Negative 05/31/18 05/31/18 04:25 04:25 WBC 7.6 RBC 4.29 Hgb 11.2 L Hct 34.3 L MCV 80.0 L MCH 26.1 L MCHC 32.7 RDW 14.3 RDW Differential 41.5 Plt Count 262 MPV 9.7 Neut % (Auto) Not Reportable Absolute Neuts (auto) 5.9 Absolute Lymphs (auto) 0.84 Total Counted 100 Neutrophils % (Manual) 75 H Band Neutrophils % 2 Lymphocytes % (Manual) 11 L Monocytes % (Manual) 10 Eosinophils % (Manual) 2 Diff Path Review May foll Platelet Estimate ADEQUATE Polychromasia 1+ Hypochromasia 1+ Microcytosis 1+ Sodium 134 L Potassium 3.7 Chloride 94 L Carbon Dioxide 27.0 Anion Gap 13 BUN 43 H Creatinine 5.39 H Estim Creat Clear Calc 10.78 Est GFR (MDRD) Af Amer 11 L Est GFR (MDRD) Non-Af 9 L BUN/Creatinine Ratio 8.0 L Glucose 254 H Calcium 8.4 L ELANA Screen Hep Bs Antigen Hep Bs Antibody Hep B Core IgM Ab POC Glucose 05/31/18 05/31/18 05/30/18 05:50 01:25 21:04 POC Glucose 261 H 281 H 235 H 05/30/18 05/30/18 05/30/18 16:57 14:34 09:52 POC Glucose 146 H 148 H 287 H Medical Necessity - Tobacco Use Smoking Status: Never smoker Tobacco Use: Non-smoker Assessment/Plan All Active Problems Chest pain (Acute) Acute respiratory failure with hypoxia (Acute) PNA (pneumonia) (Acute) Acute kidney injury (Acute) 1-Acute kidney injury. Normal creatinine 2014. Patient presented with creatinine 1.07 mg/dL. UA showed 100 protein and 100 blood but no RBCs or white cell count. 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 Rest of GN nephritic etiologies labs are still pending No recovery of kidney function. Remains anuric Patient is currently hemodialysis dependent for metabolic and volume support. Dialysis started on May 28. Last HD session 05/30. No need for HD session today. Will evaluate the need for HD tomorrow .Please keep mean arterial pressure more than 65. Avoid nephrotoxic. Dose antibiotics and medications for patient on hemodialysis Continue to monitor for kidney function recovery 2-Acute respiratory failure from bilateral pneumonia. Ventilator support as per the asset management analyst. [id number] pneumonia. On levaquin which is appropriately dosed for HD patient. Renal team will continue to follow. Please call with any question or concern at my cell phone #[phone]
[2018-05-31 09:38] LABS: Complement C3 164 mg/dL (82-167); Cytoplasmic Ab (C-ANCA) <1:20 titer (Neg:<1:20)
--- NOTE | 2018-05-31 10:07 | CASEMGMT ---
Addendum entered by Terra Tran 05/31/18 13:52: SW spoke w/Hunter Rice, he may be willing to take this pt on for guardianship. GASTON explained will have the hospital's risk and compliance analytics director call Hunter directly to further discuss. Dr. Calles completed the statement of expert evaluation, GASTON will forward this to Hunter Rice should he be able to take on this guardianship case. EVA Bustos, RULING MACHINE OPERATOR Original Note: GASTON called [facility] [place] Hunter Rice, message left inquiring if he is able to take on a guardianship case. EVA Bustos, RULING MACHINE OPERATOR
[2018-05-31] MEDS: Menthol/Lanolin/Calamine/Znox 113 GM Tube 1 APPLIC TOPICAL ×2 (10:11→21:03)
[2018-05-31] MEDS: Chlorhexidine 15 ML PO ×2 (10:11→21:03)
[2018-05-31] MEDS: Famotidine 20 MG Tablet GT (10:12)
[2018-05-31] MEDS: RisperiDONE 1 MG Tablet 2 MG GT ×2 (10:12→21:07)
[2018-05-31 10:27] LABS: Bedside Glucose 225 mg/dL (70-110)
[2018-05-31 13:05] LABS: Anti-Glomerular Basement Memb 3 units (0-20); Perinuclear Ab (P-ANCA) <1:20 titer (Neg:<1:20)
[2018-05-31 13:42] LABS: Pathologist Review Reviewed
[2018-05-31 15:00] LABS: Bedside Glucose 233 mg/dL (70-110)
[2018-05-31 17:56] LABS: Bedside Glucose 256 mg/dL (70-110)
[2018-05-31 21:41] LABS: Bedside Glucose 189 mg/dL (70-110)
[2018-06-01] VITALS (41 sets, daily range): BP systolic 94–161; BP diastolic 55–114; PULSE 57–129; RESP 16–28; TEMP 37.3–37.8; O2SAT 89–96
[2018-06-01] MEDS: Insulin Lispro 100 UNIT/ML INSULN.PEN SC ×6 (01:45→21:36)
[2018-06-01 01:50] LABS: Bedside Glucose 177 mg/dL (70-110)
[2018-06-01] MEDS: fentaNYL drip 100 ML 15 MCG IV ×3 (03:24→19:32)
[2018-06-01 05:12] LABS: ALB/GLOB Ratio 0.3 RATIO (0.9-2.4); AST(SGOT) 15 U/L (15-37); Alanine Aminotransfer ALT/SGPT 22 U/L (13-56); Albumin, Serum 1.7 g/dL (3.2-5.0); Alkaline Phosphatase 109 U/L (45-117); Anion Gap 15 (5-15); BUN 63 mg/dL (7-18); BUN/Creat Ratio 9.1 RATIO (10-20); Calcium,Total 8.9 mg/dL (8.5-10.1); Chloride 96 mmol/L (98-107); Creatinine, Serum 6.92 mg/dL (0.55-1.02); EST Glomerular Filtration Rate 7 mL/min (>60); Est Glom Filt Rate - Afr Amer 8 mL/min (>60); Globulin 5.1 g/dL (2.2-4.2); Glucose 160 mg/dL (74-106); Potassium 4.3 mmol/L (3.5-5.1); Protein, Total 6.8 g/dL (6.4-8.2); Sodium Level 137 mmol/L (136-145)
[2018-06-01] MEDS: Heparin Injection (Vial) 5,000 UNIT/ML VIAL 5000 UNIT SC ×3 (05:54→21:31)
[2018-06-01] MEDS: Nystatin Powder 15gm Bottle 1 APPLIC TOPICAL ×3 (05:56→21:32)
[2018-06-01 06:05] LABS: Bedside Glucose 205 mg/dL (70-110)
[2018-06-01] MEDS: Ipratropium/Albuterol Sulfate 3 ML AMPUL.NEB INHALATION ×4 (06:38→19:02)
--- NOTE | 2018-06-01 07:14 | PCM.PN.INT ---
Subjective: Patient did okay overnight. Patient has required increased FiO2 to maintain saturations. Patient was transitioned to Precedex therapy and is more active, but still not following commands. Patient did not receive a spontaneous breathing trial this morning secondary to increased FiO2. General: - - Fair vent synchrony. Morbidly obese. Not fallowing commands. HEENT: Atraumatic, PERRLA, EOMI, Normocephalic, - - Scleral injection without icterus Oral: Moist Mucosa, No Gingival or Mucosal Lesions/ Ulcerations, - - Fair dentition Neck: Supple, No JVD, No Nodes, Trachea Midline Lungs: No rales, Diminished, Wheezes - Right greater than left, - - Symmetric expansion. No dullness to percussion. Cardiovascular: Normal S1, Normal S2, No murmurs, Bradycardic, No rub noted, No Gallop Abdomen: Bowel Sounds Present, Soft, Non Tender, Non-Distended, Obese Extremities: No cyanosis, Edema, Peripheral Pulses Normal Skin: - - No significant change compared to previous Musculoskeletal: No Tenderness to Palpation of Joints or Extremities Lymphatic: No Cervical, Supraclavicular, or Inguinal Adenopathy Neurological: Cranial nerves II-XII grossly intact, Neuro grossly intact Psych/Mental Status: Flat Affect, Restless Vital Signs Temp Pulse Resp BP Pulse Ox 37.6 C H 104 H 24 H 161/85 H 92 06/01/18 06:00 06/01/18 06:00 06/01/18 06:00 06/01/18 06:00 06/01/18 06:00 Oxygen Flow Rate (L/min) 50 Oxygen Delivery Method Mechanical Ventilator Weight: 138.2 kg Body Mass Index (BMI) 49.7 Finger Stick Blood Glucose 150 Intake and Output for Last 24 Hours 05/30/18 05/31/18 06/01/18 23:59 23:59 23:59 Intake Total 2436.3 / 2436.3 3057 / 3057 1152 / 1152 Output Total 4451 / 4451 98 / 98 Balance -2013.7 / -2013. 2959 / 2959 1122 / 1122 Labs (Last 48 Hours) 05/25/18 05/25/18 05/26/18 12:40 12:40 16:40 WBC RBC Hgb Hct MCV MCH MCHC RDW RDW Differential Plt Count MPV Neut % (Auto) Absolute Neuts (auto) Absolute Lymphs (auto) Total Counted Neutrophils % (Manual) Band Neutrophils % Lymphocytes % (Manual) Monocytes % (Manual) Eosinophils % (Manual) Diff Path Review Platelet Estimate Polychromasia Hypochromasia Microcytosis Sodium Potassium Chloride Carbon Dioxide Anion Gap BUN Creatinine Estim Creat Clear Calc Est GFR (MDRD) Af Amer Est GFR (MDRD) Non-Af BUN/Creatinine Ratio Glucose Calcium Total Bilirubin AST ALT Alkaline Phosphatase Total Protein Albumin Globulin Albumin/Globulin Ratio ELANA Screen Negative c-ANCA Antibody <1:20 Atypical p-ANCA <1:20 p-ANCA Antibody <1:20 Glomerular Base Memb Ab 3 Complement C3 164 Complement C4 47 H Hep Bs Antigen Negative Hep Bs Antibody Reactive Hep B Core IgM Ab Negative POC Glucose 05/30/18 05/30/18 05/30/18 04:20 09:52 14:34 WBC RBC Hgb Hct MCV MCH MCHC RDW RDW Differential Plt Count MPV Neut % (Auto) Absolute Neuts (auto) Absolute Lymphs (auto) Total Counted Neutrophils % (Manual) Band Neutrophils % Lymphocytes % (Manual) Monocytes % (Manual) Eosinophils % (Manual) Diff Path Review Reviewed Platelet Estimate Polychromasia Hypochromasia Microcytosis Sodium Potassium Chloride Carbon Dioxide Anion Gap BUN Creatinine Estim Creat Clear Calc Est GFR (MDRD) Af Amer Est GFR (MDRD) Non-Af BUN/Creatinine Ratio Glucose Calcium Total Bilirubin AST ALT Alkaline Phosphatase Total Protein Albumin Globulin Albumin/Globulin Ratio ELANA Screen c-ANCA Antibody Atypical p-ANCA p-ANCA Antibody Glomerular Base Memb Ab Complement C3 Complement C4 Hep Bs Antigen Hep Bs Antibody Hep B Core IgM Ab POC Glucose 287 H 148 H 05/30/18 05/30/18 05/31/18 16:57 21:04 01:25 WBC RBC Hgb Hct MCV MCH MCHC RDW RDW Differential Plt Count MPV Neut % (Auto) Absolute Neuts (auto) Absolute Lymphs (auto) Total Counted Neutrophils % (Manual) Band Neutrophils % Lymphocytes % (Manual) Monocytes % (Manual) Eosinophils % (Manual) Diff Path Review Platelet Estimate Polychromasia Hypochromasia Microcytosis Sodium Potassium Chloride Carbon Dioxide Anion Gap BUN Creatinine Estim Creat Clear Calc Est GFR (MDRD) Af Amer Est GFR (MDRD) Non-Af BUN/Creatinine Ratio Glucose Calcium Total Bilirubin AST ALT Alkaline Phosphatase Total Protein Albumin Globulin Albumin/Globulin Ratio ELANA Screen c-ANCA Antibody Atypical p-ANCA p-ANCA Antibody Glomerular Base Memb Ab Complement C3 Complement C4 Hep Bs Antigen Hep Bs Antibody Hep B Core IgM Ab POC Glucose 146 H 235 H 281 H 05/31/18 05/31/18 05/31/18 04:25 04:25 05:50 WBC 7.6 RBC 4.29 Hgb 11.2 L Hct 34.3 L MCV 80.0 L MCH 26.1 L MCHC 32.7 RDW 14.3 RDW Differential 41.5 Plt Count 262 MPV 9.7 Neut % (Auto) Not Reportable Absolute Neuts (auto) 5.9 Absolute Lymphs (auto) 0.84 Total Counted 100 Neutrophils % (Manual) 75 H Band Neutrophils % 2 Lymphocytes % (Manual) 11 L Monocytes % (Manual) 10 Eosinophils % (Manual) 2 Diff Path Review Reviewed Platelet Estimate ADEQUATE Polychromasia 1+ Hypochromasia 1+ Microcytosis 1+ Sodium 134 L Potassium 3.7 Chloride 94 L Carbon Dioxide 27.0 Anion Gap 13 BUN 43 H Creatinine 5.39 H Estim Creat Clear Calc 10.78 Est GFR (MDRD) Af Amer 11 L Est GFR (MDRD) Non-Af 9 L BUN/Creatinine Ratio 8.0 L Glucose 254 H Calcium 8.4 L Total Bilirubin AST ALT Alkaline Phosphatase Total Protein Albumin Globulin Albumin/Globulin Ratio ELANA Screen c-ANCA Antibody Atypical p-ANCA p-ANCA Antibody Glomerular Base Memb Ab Complement C3 Complement C4 Hep Bs Antigen Hep Bs Antibody Hep B Core IgM Ab POC Glucose 261 H 05/31/18 05/31/18 05/31/18 10:15 14:55 17:49 WBC RBC Hgb Hct MCV MCH MCHC RDW RDW Differential Plt Count MPV Neut % (Auto) Absolute Neuts (auto) Absolute Lymphs (auto) Total Counted Neutrophils % (Manual) Band Neutrophils % Lymphocytes % (Manual) Monocytes % (Manual) Eosinophils % (Manual) Diff Path Review Platelet Estimate Polychromasia Hypochromasia Microcytosis Sodium Potassium Chloride Carbon Dioxide Anion Gap BUN Creatinine Estim Creat Clear Calc Est GFR (MDRD) Af Amer Est GFR (MDRD) Non-Af BUN/Creatinine Ratio Glucose Calcium Total Bilirubin AST ALT Alkaline Phosphatase Total Protein Albumin Globulin Albumin/Globulin Ratio ELANA Screen c-ANCA Antibody Atypical p-ANCA p-ANCA Antibody Glomerular Base Memb Ab Complement C3 Complement C4 Hep Bs Antigen Hep Bs Antibody Hep B Core IgM Ab POC Glucose 225 H 233 H 256 H 05/31/18 06/01/18 06/01/18 20:54 01:43 04:20 WBC RBC Hgb Hct MCV MCH MCHC RDW RDW Differential Plt Count MPV Neut % (Auto) Absolute Neuts (auto) Absolute Lymphs (auto) Total Counted Neutrophils % (Manual) Band Neutrophils % Lymphocytes % (Manual) Monocytes % (Manual) Eosinophils % (Manual) Diff Path Review Platelet Estimate Polychromasia Hypochromasia Microcytosis Sodium 137 Potassium 4.3 Chloride 96 L Carbon Dioxide 26.0 Anion Gap 15 BUN 63 H Creatinine 6.92 H Estim Creat Clear Calc 8.40 Est GFR (MDRD) Af Amer 8 L Est GFR (MDRD) Non-Af 7 L BUN/Creatinine Ratio 9.1 L Glucose 160 H Calcium 8.9 Total Bilirubin 0.40 AST 15 ALT 22 Alkaline Phosphatase 109 Total Protein 6.8 Albumin 1.7 L Globulin 5.1 H Albumin/Globulin Ratio 0.3 L ELANA Screen c-ANCA Antibody Atypical p-ANCA p-ANCA Antibody Glomerular Base Memb Ab Complement C3 Complement C4 Hep Bs Antigen Hep Bs Antibody Hep B Core IgM Ab POC Glucose 189 H 177 H 06/01/18 05:52 WBC RBC Hgb Hct MCV MCH MCHC RDW RDW Differential Plt Count MPV Neut % (Auto) Absolute Neuts (auto) Absolute Lymphs (auto) Total Counted Neutrophils % (Manual) Band Neutrophils % Lymphocytes % (Manual) Monocytes % (Manual) Eosinophils % (Manual) Diff Path Review Platelet Estimate Polychromasia Hypochromasia Microcytosis Sodium Potassium Chloride Carbon Dioxide Anion Gap BUN Creatinine Estim Creat Clear Calc Est GFR (MDRD) Af Amer Est GFR (MDRD) Non-Af BUN/Creatinine Ratio Glucose Calcium Total Bilirubin AST ALT Alkaline Phosphatase Total Protein Albumin Globulin Albumin/Globulin Ratio ELANA Screen c-ANCA Antibody Atypical p-ANCA p-ANCA Antibody Glomerular Base Memb Ab Complement C3 Complement C4 Hep Bs Antigen Hep Bs Antibody Hep B Core IgM Ab POC Glucose 205 H Medical Necessity - Tobacco Use Smoking Status: Never smoker Tobacco Use: Non-smoker Assessment/Plan All Active Problems Chest pain (Acute) Acute respiratory failure with hypoxia (Acute) PNA (pneumonia) (Acute) Acute kidney injury (Acute) RECOMMENDATIONS: 1. Continue antibiotics as ordered to complete 10 days. 2. Preferentially wean FiO2 today goal of 40%, then wean PEEP 3. Continue hemodialysis per nephrology recommendations. 4. Continue tube feeds as ordered. 5. Continue Precedex therapy with plans to maintain a RASS of -1. 6. Continue appropriate ICU prophylaxis 7. Increase Risperdal therapy. Continue basal insulin IMPRESSIONS: 1. Acute combined respiratory failure secondary to severe community-acquired pneumonia Some concern about patient's failure to respond to volume removal. Patient is much more hemodynamically stable and appears to have pneumonia under control with Levaquin therapy. Plan to complete 10 days of total therapy. Patient is still having increased PEEP and FiO2 requirements. Patient has not responded well to transition to Precedex therapy. Clinical suspicion is that patient may require tracheostomy and PEG secondary to failure to progress. 2. Acute kidney injury Likely secondary to ATN, as the patient was initially diuresed on admission to the hospital and also developed a component of hypotension on arrival to the ICU. Nephrology is currently following. The patient did undergo hemodialysis yesterday. Hemodialysis support will be continued per nephrology recommendations. 3. Indeterminate troponin/acute on chronic diastolic heart failure Echocardiogram revealed no wall motion abnormalities. Patient with diastolic abnormalities noted on echocardiogram. Complicated by renal function, but patient appears to be minimally responding to volume removal. 4. Morbid obesity/diabetes mellitus/anxiety/depression/PTSD Complicates care, management, recovery and prognosis. Continue Accu-Cheks and sliding scale insulin coverage. Tube feeds will be continued. Since baseline psychiatric medications cannot be reinitiated as these cannot be crushed. Increase Risperdal therapy. 5. Social issues Patient is currently intubated and sedated. Multiple attempts by social work to touch base with family members have not resulted in anyone willing to speak on her behalf. Patient reportedly has estranged herself from multiple family members. Appropriate documentation completed to see if a guardian can be arranged for tracheostomy and PEG if aggressive measures are to be continued. TIME: 32 minutes of critical care time was spent addressing the patient's acute combined respiratory failure, severe community-acquired pneumonia, acute kidney injury, indeterminate troponin, morbid obesity, review of all data and collaboration with the care team. (5:20 AM to 6:20 AM) Code Visit [id number]: [id number] Critical care first hour
[2018-06-01] MEDS: levoFLOXacin IV 500 MG/100 ML BAG 100 MG IV (09:39)
[2018-06-01] MEDS: CHLORHEXIDINE GLUC 2% CLOTH 1 EACH TOWELETTE TOPICAL (09:40)
[2018-06-01] MEDS: Chlorhexidine 15 ML PO ×2 (09:40→21:31)
[2018-06-01] MEDS: Menthol/Lanolin/Calamine/Znox 113 GM Tube 1 APPLIC TOPICAL ×2 (09:40→21:26)
[2018-06-01] MEDS: Famotidine 20 MG Tablet GT (09:41)
[2018-06-01] MEDS: RisperiDONE 2 MG Tablet GT ×2 (09:42→21:32)
[2018-06-01] MEDS: RisperiDONE 0.5 MG Tablet GT ×2 (09:42→21:32)
--- NOTE | 2018-06-01 09:46 | PCM.PROGNOTE ---
Patient Problems: Active and Suspected Problems Chest pain (Acute) Acute respiratory failure with hypoxia (Acute) PNA (pneumonia) (Acute) Acute kidney injury (Acute) Subjective: Chief complaint: Follow-up after admission for severe community-acquired pneumonia complicated by acute hypoxic and hypercapnic respiratory failure as well as acute renal failure, acute on chronic diastolic CHF and indeterminate troponin. Patient seen and examined. No acute events overnight. She required to increase FiO2 to maintain her oxygenation. At this time, she is sedated, intubated. She is on Precedex infusion for sedation. No breathing trial this morning because of high FiO2. She has been having spikes of low-grade fever, blood pressure is maintained, on mechanical ventilation. - Physical Exam General: - - Sedated, intubated. HEENT: Atraumatic, PERRLA, Normocephalic Oral: Moist Mucosa, No Gingival or Mucosal Lesions/ Ulcerations Neck: Supple, No JVD, Negative Carotid Bruits, Trachea Midline, Thyroid Normal Size and Texture Lungs: No wheeze, No rales, Diminished, Rhonchi, - - Decreased breath sounds bilateral, rhonchi. Cardiovascular: Regular rate, Regular Rhythm, Normal S1, Normal S2, PMI Normal Abdomen: Bowel Sounds Present, Soft, Non Tender, Non-Distended, No Hepato-splenomegaly, Obese Extremities: No clubbing, No cyanosis, Edema Skin: No rashes, No breakdown Lymphatic: No Cervical, Supraclavicular, or Inguinal Adenopathy Neurological: - - Unable to assess today, she is sedated. Psych/Mental Status: - - Unable to assess, sedated. Vital Signs Temp Pulse Resp BP Pulse Ox 100.0 F H 68 16 148/84 H 93 06/01/18 08:00 06/01/18 08:00 06/01/18 08:00 06/01/18 08:00 06/01/18 08:00 Oxygen Flow Rate (L/min) 50 Oxygen Delivery Method Mechanical Ventilator Weight: 304 lb 10.861 oz Body Mass Index (BMI) 49.7 Finger Stick Blood Glucose 150 Intake and Output for Last 24 Hours 05/30/18 05/31/18 06/01/18 23:59 23:59 23:59 Intake Total 2436.3 / 2436.3 3057 / 3057 1152 / 1152 Output Total 4451 / 4451 98 / 98 Balance -2014.. 2959 / 2959 1122 / 1122 Microbiology Past 72 Hours 05/23/18 15:10 Blood Culture - Final Blood Culture (Wb) - Anticubital Right No growth in 5 days. 05/23/18 15:10 Blood Culture - Final Blood Culture (Wb) - Left Forearm No growth in 5 days. Laboratory Tests Past 24 Hrs 05/25/18 05/31/18 06/01/18 12:40 04:25 04:20 Diff Path Review Reviewed Sodium 137 Potassium 4.3 Chloride 96 L Carbon Dioxide 26.0 Anion Gap 15 BUN 63 H Creatinine 6.92 H Estim Creat Clear Calc 8.40 Est GFR (MDRD) Af Amer 8 L Est GFR (MDRD) Non-Af 7 L BUN/Creatinine Ratio 9.1 L Glucose 160 H Calcium 8.9 Total Bilirubin 0.40 AST 15 ALT 22 Alkaline Phosphatase 109 Total Protein 6.8 Albumin 1.7 L Globulin 5.1 H Albumin/Globulin Ratio 0.3 L c-ANCA Antibody <1:20 Atypical p-ANCA <1:20 p-ANCA Antibody <1:20 Glomerular Base Memb Ab 3 Complement C3 164 Complement C4 47 H POC Glucose 06/01/18 06/01/18 05/31/18 05:52 01:43 20:54 POC Glucose 205 H 177 H 189 H 05/31/18 05/31/18 05/31/18 17:49 14:55 10:15 POC Glucose 256 H 233 H 225 H Medical Necessity - Tobacco Use Smoking Status: Never smoker Tobacco Use: Non-smoker Assessment/Plan All Active Problems Chest pain (Acute) Acute respiratory failure with hypoxia (Acute) PNA (pneumonia) (Acute) Acute kidney injury (Acute) This is a 57 years old female patient presented to the emergency room because of shortness of breath, found to have findings consistent with severe community acquired pneumonia as well as acute on chronic diastolic CHF, complicated by acute hypoxic and hypercapnic respiratory failure as well as acute renal failure requiring hemodialysis. #1 acute hypoxic and hypercapnic respiratory failure: Secondary to pneumonia. Remains on mechanical ventilation, FiO2 needed to be increased to maintain oxygenation, still high PEEP. Spontaneous breathing trial was not performed this morning because of high FiO2 requirement. Blood pressure and heart rate are maintained, still having spikes of low-grade fever. Blood culture showed no growth in 5 days. Urine culture revealed Klebsiella pneumoniae. She is on IV Levaquin. Plan to continue same treatment today, hemodialysis. #2 acute severe community-acquired pneumonia: Remained on IV Levaquin. She has been afebrile, no leukocytosis. Blood culture showed no growth in 5 days. Pneumococcal and Legionella antigen were negative. Urine culture positive for Klebsiella pneumonia. Respiratory panel for viruses were negative. Sputum culture revealed mixed normal respiratory addison, yeast, no Selin. Plan to continue same treatment for now. #3 acute renal failure: Received hemodialysis. BUN and creatinine started to go up again, worsening. She has very poor urine output. Nephrology on the case and patient probably will need dialysis again today. #4 acute on chronic diastolic CHF/indeterminate troponin: Responding to hemodialysis. 2D echocardiogram revealed normal LV size and function, ejection fraction was 55%, stage I diastolic dysfunction. Plan to continue with dialysis according to nephrology. #5 type 2 diabetes mellitus: She is on insulin sliding scale as well as Lantus twice daily. Blood sugar fluctuating, around 250. She has been tolerating tube feeds. #6 depression/anxiety: Medications held, she is on sedation with IV Precedex and fentanyl. #7 hyperlipidemia: Medication held as well. #8 DVT prophylaxis: Subcu heparin. This note was generated with [employer] dictation software. It may contain incorrect words, spelling, and punctuation that were not noted in checking the note before signing. Code Visit Inpatient E&M: 03530 [facility] Hosp L3
--- NOTE | 2018-06-01 09:52 | PN_ITS ---
Patient Problems: Active and Suspected Problems Chest pain (Acute) Acute respiratory failure with hypoxia (Acute) PNA (pneumonia) (Acute) Acute kidney injury (Acute) Subjective: Chief complaint: Follow-up after admission for severe community-acquired pneumonia complicated by acute hypoxic and hypercapnic respiratory failure as we ll as acute renal failure, acute on chronic diastolic CHF and indeterminate troponin. Patient seen and examined. No acute events overnight. She required to increase FiO2 to maintain her oxygenation. At this time, she is sedated, intubated. She is on Precedex infusion for sedation. No breathing trial this morning because of high FiO2. She has been having spikes of low-grade fever, blood pressure is maintained, on mechanical ventilation. - Physical Exam General: - - Sedated, intubated. HEENT: Atraumatic, PERRLA, Normocephalic Oral: Moist Mucosa, No Gingival or Mucosal Lesions/ Ulcerations Neck: Supple, No JVD, Negative Carotid Bruits, Trachea Midline, Thyroid Normal Size and Texture Lungs: No wheeze, No rales, Diminished, Rhonchi, - - Decreased breath sounds bilateral, rhonchi. Cardiovascular: Regular rate, Regular Rhythm, Normal S1, Normal S2, PMI Normal Abdomen: Bowel Sounds Present, Soft, Non Tender, Non-Distended, No Hepato- splenomegaly, Obese Extremities: No clubbing, No cyanosis, Edema Skin: No rashes, No breakdown Lymphatic: No Cervical, Supraclavicular, or Inguinal Adenopathy Neurological: - - Unable to assess today, she is sedated. Psych/Mental Status: - - Unable to assess, sedated. Vital Signs Temp Pulse Resp BP Pulse Ox 100.0 F H 68 16 148/84 H 93 06/01/18 08:00 06/01/18 08:00 06/01/18 08:00 06/01/18 08:00 06/01/18 08:00 Oxygen Flow Rate (L/min) 50 Oxygen Delivery Method Mechanical Ventilator Weight: 304 lb 10.861 oz Body Mass Index (BMI) 49.7 Finger Stick Blood Glucose 150 Intake and Output for Last 24 Hours 05/30/18 05/31/18 06/01/18 23:59 23:59 23:59 Intake Total 2436.3 / 2436.3 3057 / 3057 1152 / 1152 Output Total 4451 / 4451 98 / 98 30 / 30 Balance -2014.7 / -2014.7 2959 / 2959 1122 / 1122 Microbiology Past 72 Hours 05/23/18 15:10 Blood Culture - Final Blood Culture (Wb) - Anticubital Right No growth in 5 days. 05/23/18 15:10 Blood Culture - Final Blood Culture (Wb) - Left Forearm No growth in 5 days. Laboratory Tests Past 24 Hrs 05/25/18 05/31/18 06/01/18 12:40 04:25 04:20 Diff Path Review Reviewed Sodium 137 Potassium 4.3 Chloride 96 L Carbon Dioxide 26.0 Anion Gap 15 BUN 63 H Creatinine 6.92 H Estim Creat Clear Calc 8.40 Est GFR (MDRD) Af Amer 8 L Est GFR (MDRD) Non-Af 7 L BUN/Creatinine Ratio 9.1 L Glucose 160 H Calcium 8.9 Total Bilirubin 0.40 AST 15 ALT 22 Alkaline Phosphatase 109 Total Protein 6.8 Albumin 1.7 L Globulin 5.1 H Albumin/Globulin Ratio 0.3 L c-ANCA Antibody <1:20 Atypical p-ANCA <1:20 p-ANCA Antibody <1:20 Glomerular Base Memb Ab 3 Complement C3 164 Complement C4 47 H POC Glucose 06/01/18 06/01/18 05/31/18 05:52 01:43 20:54 POC Glucose 205 H 177 H 189 H 05/31/18 05/31/18 05/31/18 17:49 14:55 10:15 POC Glucose 256 H 233 H 225 H Medical Necessity - Tobacco Use Smoking Status: Never smoker Tobacco Use: Non-smoker Assessment/Plan All Active Problems Chest pain (Acute) Acute respiratory failure with hypoxia (Acute) PNA (pneumonia) (Acute) Acute kidney injury (Acute) This is a 57 years old female patient presented to the emergency room because of shortness of breath, found to have findings consistent with severe community acquired pneumonia as well as acute on chronic diastolic CHF, complicated by acute hypoxic and hypercapnic respiratory failure as well as acute renal failure requiring hemodialysis. #1 acute hypoxic and hypercapnic respiratory failure: Secondary to pneumonia. Remains on mechanical ventilation, FiO2 needed to be increased to maintain oxygenation, still high PEEP. Spontaneous breathing trial was not performed this morning because of high FiO2 requirement. Blood pressure and heart rate are maintained, still having spikes of low-grade fever. Blood culture showed no growth in 5 days. Urine culture revealed Klebsiella pneumoniae. She is on IV Levaquin. Plan to continue same treatment today, hemodialysis. #2 acute severe community-acquired pneumonia: Remained on IV Levaquin. She has been afebrile, no leukocytosis. Blood culture showed no growth in 5 days. Pneumococcal and Legionella antigen were negative. Urine culture positive for Klebsiella pneumonia. Respiratory panel for viruses were negative. Sputum culture revealed mixed normal respiratory addison, yeast, no Selin. Plan to continue same treatment for now. #3 acute renal failure: Received hemodialysis. BUN and creatinine started to go up again, worsening. She has very poor urine output. Nephrology on the case and patient probably will need dialysis again today. #4 acute on chronic diastolic CHF/indeterminate troponin: Responding to hemodialysis. 2D echocardiogram revealed normal LV size and function, ejection fraction was 55%, stage I diastolic dysfunction. Plan to continue with dialysis according to nephrology. #5 type 2 diabetes mellitus: She is on insulin sliding scale as well as Lantus twice daily. Blood sugar fluctuating, around 250. She has been tolerating tube feeds. #6 depression/anxiety: Medications held, she is on sedation with IV Precedex and fentanyl. #7 hyperlipidemia: Medication held as well. #8 DVT prophylaxis: Subcu heparin. This note was generated with [employer] dictation software. It may contain incorrect words, spelling, and punctuation that were not noted in checking the note before signing. Code Visit Inpatient E&M: 82268 [facility] [[email or web address]] Hosp L3
[2018-06-01] MEDS: 0.9% NaCl IVPB Med Flush (250 mL) 15 ML IV (10:01)
[2018-06-01 10:25] LABS: Bedside Glucose 208 mg/dL (70-110)
--- NOTE | 2018-06-01 12:43 | CASEMGMT ---
It Technical Specialist Hunter Rice has not as of yet been back in touch with the hospital in regard to taking on this pt as pt's guardian. EVA Bustos, HEALTH CARE SANITARY TECHNICIAN
--- NOTE | 2018-06-01 13:41 | CASEMGMT ---
Pt's aunt Mary Grace Peterson called in to check on pt and asked about sending nicholson. She is still not up for making decisions for pt, SW let her know that we are going forward with guardianship, as nobody in the family is willing to be a decision maker for the pt. Mary Grace states she thinks this is the best thing for the pt. EVA Bustos, WEIGH BOX TENDER
[2018-06-01 14:30] LABS: Bedside Glucose 190 mg/dL (70-110)
--- NOTE | 2018-06-01 15:46 | CASEMGMT ---
Discharge Planning Note: Faxed chart Clinicals/Inquiry to [facility]. S/w Adrienne and panda received entire faxed packet. Hieu Jean RNCM
--- NOTE | 2018-06-01 17:12 | DIALYSIS ---
HD tx cancelled today d/t non-functioning temp nontunnled right chest HD CVC. No pull on either lumen noted despite several attempts to re-position patient. CVC lumens closed using CATHFLO per fill volume per MD order. Cathflo to be removed tomorrow morning per housecalls nurse. Report given to LINDSAY Khalil. Pt stable
--- NOTE | 2018-06-01 17:22 | PCM.PN.REN ---
Patient Problems: Active and Suspected Problems Chest pain (Acute) Acute respiratory failure with hypoxia (Acute) PNA (pneumonia) (Acute) Acute kidney injury (Acute) Subjective: Patient remains intubated, opens her eyes. Does not follow commands. Of pressure Cannot do review of system - Physical Exam General: - - Intubated HEENT: Atraumatic Oral: Moist Mucosa Neck: Supple, No JVD Lungs: No rhonchi, No wheeze - Equal air entry, - Cardiovascular: Normal S1, Tachycardic Abdomen: Bowel Sounds Present, Soft, Non Tender, Non-Distended Extremities: No clubbing, No cyanosis, Edema Skin: No rashes Musculoskeletal: No Tenderness to Palpation of Joints or Extremities Lymphatic: No Cervical, Supraclavicular, or Inguinal Adenopathy Vital Signs Temp Pulse Resp BP Pulse Ox 99.4 F H 60 16 111/74 93 06/01/18 16:00 06/01/18 16:00 06/01/18 16:00 06/01/18 16:00 06/01/18 16:00 Oxygen Flow Rate (L/min) 50 Oxygen Delivery Method Mechanical Ventilator Weight: 138.2 kg Body Mass Index (BMI) 49.7 Finger Stick Blood Glucose 150 Intake and Output for Last 24 Hours 05/30/18 05/31/18 06/01/18 23:59 23:59 23:59 Intake Total 2436.3 / 2436.3 3057 / 3057 1182 / 1182 Output Total 4451 / 4451 98 / 98 75 / 75 Balance -2013. 2959 / 2959 1107 / 1107 Laboratory Tests Past 24 Hrs 06/01/18 04:20 Sodium 137 Potassium 4.3 Chloride 96 L Carbon Dioxide 26.0 Anion Gap 15 BUN 63 H Creatinine 6.92 H Estim Creat Clear Calc 8.40 Est GFR (MDRD) Af Amer 8 L Est GFR (MDRD) Non-Af 7 L BUN/Creatinine Ratio 9.1 L Glucose 160 H Calcium 8.9 Total Bilirubin 0.40 AST 15 ALT 22 Alkaline Phosphatase 109 Total Protein 6.8 Albumin 1.7 L Globulin 5.1 H Albumin/Globulin Ratio 0.3 L POC Glucose 06/01/18 06/01/18 06/01/18 13:50 09:44 05:52 POC Glucose 190 H 208 H 205 H 02/05/31/18 05/31/18 01:43 20:54 17:49 POC Glucose 177 H 189 H 256 H Medical Necessity - Tobacco Use Smoking Status: Never smoker Tobacco Use: Non-smoker Assessment/Plan All Active Problems Chest pain (Acute) Acute respiratory failure with hypoxia (Acute) PNA (pneumonia) (Acute) Acute kidney injury (Acute) 1-Acute kidney injury. Normal creatinine 2014. Patient presented with creatinine 1.07 mg/dL. UA showed 100 protein and 100 blood but no RBCs or white cell count. 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 C3/C4 are within normal limits. Hepatitis panel is negative No recovery of kidney function. Remains anuric Patient is currently hemodialysis dependent for metabolic and volume support. Dialysis started on May 28. We were not able to do hemodialysis session this evening due to the hemodialysis line dysfunction. Will place TPA in both hemodialysis lumens and retry hemodialysis session tomorrow Please keep mean arterial pressure more than 65. Avoid nephrotoxic. Dose antibiotics and medications for patient on hemodialysis Continue to monitor for kidney function recovery 2-Acute respiratory failure from bilateral pneumonia. Ventilator support as per the community marketing coordinator. [id number] pneumonia. On levaquin which is appropriately dosed for HD patient. Renal team will continue to follow. Please call with any question or concern at my cell phone #[phone]
[2018-06-01] MEDS: Vital AF 1.2 Cal Liquid 1,000 ML 60 ML GT (17:58)
[2018-06-01 18:05] LABS: Bedside Glucose 218 mg/dL (70-110)
[2018-06-01] MEDS: Propofol 10MG/Ml 1,000 MG/100 ML Bottle 8.292 MG CONT INF (18:30)
[2018-06-01 21:56] LABS: Bedside Glucose 180 mg/dL (70-110)
[2018-06-02] VITALS (36 sets, daily range): BP systolic 95–155; BP diastolic 53–72; PULSE 55–111; RESP 15–28; TEMP 37.3–37.6; O2SAT 88–97
[2018-06-02] MEDS: fentaNYL drip 100 ML 15 MCG IV ×4 (00:56→23:17)
[2018-06-02] MEDS: Propofol 10MG/Ml 1,000 MG/100 ML Bottle 8.292 MG CONT INF ×4 (00:56→20:10)
[2018-06-02] MEDS: Insulin Lispro 100 UNIT/ML INSULN.PEN SC ×5 (02:14→23:18)
[2018-06-02] MEDS: CHLORHEXIDINE GLUC 2% CLOTH 1 EACH TOWELETTE TOPICAL (02:14)
[2018-06-02 02:30] LABS: Bedside Glucose 246 mg/dL (70-110)
[2018-06-02] MEDS: Heparin Injection (Vial) 5,000 UNIT/ML VIAL 5000 UNIT SC ×3 (06:07→21:59)
[2018-06-02] MEDS: Nystatin Powder 15gm Bottle 1 APPLIC TOPICAL ×3 (06:08→22:02)
[2018-06-02 06:21] LABS: Bedside Glucose 174 mg/dL (70-110)
[2018-06-02] MEDS: Ipratropium/Albuterol Sulfate 3 ML AMPUL.NEB INHALATION ×4 (07:21→19:15)
--- NOTE | 2018-06-02 09:45 | PN_ITS ---
Patient Problems: Active and Suspected Problems Chest pain (Acute) Acute respiratory failure with hypoxia (Acute) PNA (pneumonia) (Acute) Acute kidney injury (Acute) Subjective: Chief complaint: Follow-up after admission for severe community-acquired pneumonia complicated by acute hypoxic and hypercapnic respiratory failure as we ll as acute renal failure, acute on chronic diastolic CHF and indeterminate troponin. Patient seen and examined. No acute events overnight. She is on Precedex and propofol for sedation. She is awake, spontaneous eye opening, not following commands. She remains on FiO2 70%, PEEP went up to 12. She is afebrile, blood pressure and heart rate are maintained, remains on mechanical ventilation. - Physical Exam General: - - Intubated, on sedation, spontaneous eye opening, not following commands. HEENT: Atraumatic, PERRLA, EOMI, Normocephalic Oral: Moist Mucosa, No Gingival or Mucosal Lesions/ Ulcerations Neck: Supple, No JVD, Negative Carotid Bruits, Trachea Midline, Thyroid Normal Size and Texture Lungs: No wheeze, No rales, Diminished, Rhonchi, Short of Breath Cardiovascular: Regular rate, Regular Rhythm, Normal S1, Normal S2, PMI Normal Abdomen: Bowel Sounds Present, Soft, Non Tender, Non-Distended, No Hepato- splenomegaly, Obese Extremities: No clubbing, No cyanosis, Edema - Trace edema. Skin: No rashes, No breakdown Lymphatic: No Cervical, Supraclavicular, or Inguinal Adenopathy Neurological: Cranial nerves II-XII grossly intact, - - Moving all limbs. Psych/Mental Status: - - Patient is alert but not able to assess her mental status. Not follow commands. Vital Signs Temp Pulse Resp BP Pulse Ox 99.5 F H 55 L 16 105/69 91 06/02/18 04:00 06/02/18 07:22 06/02/18 07:22 06/02/18 06:00 06/02/18 07:22 Oxygen Flow Rate (L/min) 50 Oxygen Delivery Method Mechanical Ventilator Weight: 312 lb 13.375 oz Body Mass Index (BMI) 49.7 Finger Stick Blood Glucose 150 Intake and Output for Last 24 Hours 05/31/18 06/01/18 06/02/18 23:59 23:59 23:59 Intake Total 3057 / 3057 3030 / 3030 2076 / 2076 Output Total 98 / 98 130 / 130 100 / 100 Balance 2959 / 2959 2900 / 2900 1975 Laboratory Tests Past 24 Hrs 06/02/18 09:15 Sodium Pending Potassium Pending Chloride Pending Carbon Dioxide Pending Anion Gap Pending BUN Pending Creatinine Pending Est GFR (MDRD) Af Amer Pending Est GFR (MDRD) Non-Af Pending BUN/Creatinine Ratio Pending Glucose Pending Calcium Pending POC Glucose 06/02/18 06/02/18 06/01/18 06:06 02:12 21:35 POC Glucose 174 H 246 H 180 H 06/01/18 06/01/18 06/01/18 17:41 13:50 09:44 POC Glucose 218 H 190 H 208 H Medical Necessity - Tobacco Use Smoking Status: Never smoker Tobacco Use: Non-smoker Assessment/Plan All Active Problems Chest pain (Acute) Acute respiratory failure with hypoxia (Acute) PNA (pneumonia) (Acute) Acute kidney injury (Acute) This is a 57 years old female patient presented to the emergency room because of shortness of breath, found to have findings consistent with severe community acquired pneumonia as well as acute on chronic diastolic CHF, complicated by acute hypoxic and hypercapnic respiratory failure as well as acute renal failure requiring hemodialysis. #1 acute hypoxic and hypercapnic respiratory failure: Secondary to pneumonia. Remains on mechanical ventilation, still on 70% FiO2, PEEP went up to 12. Again, no spontaneous breathing felt on this morning because of high PEEP and FiO2. Blood pressure and heart rate are maintained, maximum temperature overnight was 99.5. Blood culture showed no growth in 5 days. Urine culture revealed Klebsiella pneumoniae. She is on IV Levaquin. Plan to continue same treatment today, wean off FiO2 and PEEP as tolerated, hemodialysis to help weaning off mechanical ventilation, plan for PEG tube placement and tracheostomy on Monday.. #2 acute severe community-acquired pneumonia: Remained on IV Levaquin. She has been afebrile, no leukocytosis. Blood culture showed no growth in 5 days. Pneumococcal and Legionella antigen were negative. Urine culture positive for Klebsiella pneumonia. Respiratory panel for viruses were negative. Sputum culture revealed mixed normal respiratory addison, yeast, no Selin. Plan to continue same treatment for now. #3 acute renal failure: Received hemodialysis. BUN and creatinine continued to worsen again and creatinine went up to 7.87 today. It was 6.92 yesterday. Potassium is normal.. She has very poor urine output. Nephrology on the case, patient will need hemodialysis today. #4 acute on chronic diastolic CHF/indeterminate troponin: Responding to hemodialysis. 2D echocardiogram revealed normal LV size and function, ejection fraction was 55%, stage I diastolic dysfunction. Plan to continue with dialysis according to nephrology. #5 type 2 diabetes mellitus: She is on insulin sliding scale as well as Lantus twice daily. Blood sugar fluctuating, around 250. She has been tolerating tube feeds. #6 depression/anxiety: Medications held, she is on sedation with IV Precedex and fentanyl. #7 hyperlipidemia: Medication held as well. #8 DVT prophylaxis: Subcu heparin. This note was generated with [employer] dictation software. It may contain incorrect words, spelling, and punctuation that were not noted in checking the note before signing. Code Visit Inpatient E&M: 64835 [facility] Hosp L3
--- NOTE | 2018-06-02 10:06 | CM.UR ---
Participated in interdisciplinary rounds this am. They were unable to do dialysis yesterday due to catheter not working. Plan is to try again today. Still awaiting guardianship. Dr. Calles mentioned he things she would take a long time to wean from the vent. Plans to place trach and PEG. Plan is likely [facility]. Giuseppe Enriquez RN, CCM.
--- NOTE | 2018-06-02 10:07 | PCM.PN.INT ---
Subjective: Patient did okay overnight. Patient's oxygenation has been marginal requiring increase in FiO2. No fevers or hemodynamic instability otherwise. Patient has remained intermittently agitated and is currently on both Precedex and propofol therapy. Patient was having very poor vent synchrony with the Precedex, but attempts to wean have been unsuccessful thus far. Able to receive hemodialysis yesterday secondary to poorly functioning catheter. General: - - Intubated and sedated. RASS of 0. Good vent synchrony noted. HEENT: Atraumatic, PERRLA, EOMI, Normocephalic, - - Slight scleral injection without icterus Oral: Moist Mucosa, No Gingival or Mucosal Lesions/ Ulcerations Neck: Supple, No Nodes, Trachea Midline, - - IJ is clean, dry and intact. Lungs: No rhonchi, No wheeze, Diminished, Rales, - - Symmetric expansion. No dullness to percussion anteriorly. Cardiovascular: Regular rate, Regular Rhythm, Normal S1, Normal S2, No murmurs, No rub noted, No Gallop Abdomen: Bowel Sounds Present, Soft, Non Tender, Non-Distended, Obese Extremities: No clubbing, No cyanosis, Edema Skin: - - No significant change Musculoskeletal: No Tenderness to Palpation of Joints or Extremities Lymphatic: No Cervical, Supraclavicular, or Inguinal Adenopathy Neurological: Cranial nerves II-XII grossly intact, Neuro grossly intact, Motor Exam 5/5 strength throughout Psych/Mental Status: Flat Affect, Impulsive Vital Signs Temp Pulse Resp BP Pulse Ox 37.5 C H 61 17 105/69 91 06/02/18 04:00 06/02/18 09:47 06/02/18 09:47 06/02/18 06:00 06/02/18 09:47 Oxygen Flow Rate (L/min) 50 Oxygen Delivery Method Mechanical Ventilator Weight: 141.9 kg Body Mass Index (BMI) 49.7 Finger Stick Blood Glucose 150 Intake and Output for Last 24 Hours 05/31/18 06/01/18 06/02/18 23:59 23:59 23:59 Intake Total 3057 / 3057 3030 / 3030 2075 / 2075 Output Total 98 / 98 130 / 130 100 / 100 Balance 2959 / 2959 2900 / 2900 1975 / 1975 Labs (Last 48 Hours) 05/25/18 05/31/18 05/31/18 12:40 04:25 10:15 Diff Path Review Reviewed Sodium Potassium Chloride Carbon Dioxide Anion Gap BUN Creatinine Estim Creat Clear Calc Est GFR (MDRD) Af Amer Est GFR (MDRD) Non-Af BUN/Creatinine Ratio Glucose Calcium Total Bilirubin AST ALT Alkaline Phosphatase Total Protein Albumin Globulin Albumin/Globulin Ratio c-ANCA Antibody <1:20 Atypical p-ANCA <1:20 p-ANCA Antibody <1:20 Glomerular Base Memb Ab 3 Complement C3 164 Complement C4 47 H POC Glucose 225 H 05/31/18 05/31/18 05/31/18 14:55 17:49 20:54 Diff Path Review Sodium Potassium Chloride Carbon Dioxide Anion Gap BUN Creatinine Estim Creat Clear Calc Est GFR (MDRD) Af Amer Est GFR (MDRD) Non-Af BUN/Creatinine Ratio Glucose Calcium Total Bilirubin AST ALT Alkaline Phosphatase Total Protein Albumin Globulin Albumin/Globulin Ratio c-ANCA Antibody Atypical p-ANCA p-ANCA Antibody Glomerular Base Memb Ab Complement C3 Complement C4 POC Glucose 233 H 256 H 189 H 06/01/18 06/01/18 06/01/18 01:43 04:20 05:52 Diff Path Review Sodium 137 Potassium 4.3 Chloride 96 L Carbon Dioxide 26.0 Anion Gap 15 BUN 63 H Creatinine 6.92 H Estim Creat Clear Calc 8.40 Est GFR (MDRD) Af Amer 8 L Est GFR (MDRD) Non-Af 7 L BUN/Creatinine Ratio 9.1 L Glucose 160 H Calcium 8.9 Total Bilirubin 0.40 AST 15 ALT 22 Alkaline Phosphatase 109 Total Protein 6.8 Albumin 1.7 L Globulin 5.1 H Albumin/Globulin Ratio 0.3 L c-ANCA Antibody Atypical p-ANCA p-ANCA Antibody Glomerular Base Memb Ab Complement C3 Complement C4 POC Glucose 177 H 205 H 06/01/18 06/01/18 06/01/18 09:44 13:50 17:41 Diff Path Review Sodium Potassium Chloride Carbon Dioxide Anion Gap BUN Creatinine Estim Creat Clear Calc Est GFR (MDRD) Af Amer Est GFR (MDRD) Non-Af BUN/Creatinine Ratio Glucose Calcium Total Bilirubin AST ALT Alkaline Phosphatase Total Protein Albumin Globulin Albumin/Globulin Ratio c-ANCA Antibody Atypical p-ANCA p-ANCA Antibody Glomerular Base Memb Ab Complement C3 Complement C4 POC Glucose 208 H 190 H 218 H 06/01/18 06/02/18 06/02/18 21:35 02:12 06:06 Diff Path Review Sodium Potassium Chloride Carbon Dioxide Anion Gap BUN Creatinine Estim Creat Clear Calc Est GFR (MDRD) Af Amer Est GFR (MDRD) Non-Af BUN/Creatinine Ratio Glucose Calcium Total Bilirubin AST ALT Alkaline Phosphatase Total Protein Albumin Globulin Albumin/Globulin Ratio c-ANCA Antibody Atypical p-ANCA p-ANCA Antibody Glomerular Base Memb Ab Complement C3 Complement C4 POC Glucose 180 H 246 H 174 H 06/02/18 09:15 Diff Path Review Sodium Pending Potassium Pending Chloride Pending Carbon Dioxide Pending Anion Gap Pending BUN Pending Creatinine Pending Estim Creat Clear Calc Est GFR (MDRD) Af Amer Pending Est GFR (MDRD) Non-Af Pending BUN/Creatinine Ratio Pending Glucose Pending Calcium Pending Total Bilirubin AST ALT Alkaline Phosphatase Total Protein Albumin Globulin Albumin/Globulin Ratio c-ANCA Antibody Atypical p-ANCA p-ANCA Antibody Glomerular Base Memb Ab Complement C3 Complement C4 POC Glucose Medical Necessity - Tobacco Use Smoking Status: Never smoker Tobacco Use: Non-smoker Assessment/Plan All Active Problems Chest pain (Acute) Acute respiratory failure with hypoxia (Acute) PNA (pneumonia) (Acute) Acute kidney injury (Acute) RECOMMENDATIONS: 1. Continue antibiotics as ordered to complete 10 days. 2. Increase PEEP in an attempt to keep FiO2 60% or less 3. Continue hemodialysis per nephrology recommendations. Surgery for tunneled line if patient requires second access 4. Continue tube feeds as ordered. 5. Condition back to propofol therapy with plans to maintain a RASS of -1. 6. Continue appropriate ICU prophylaxis 7. Increase Risperdal therapy. Continue basal insulin 8. Anticipate trach, PEG next week IMPRESSIONS: 1. Acute combined respiratory failure secondary to severe community-acquired pneumonia Some concern about patient's failure to respond to volume removal. Patient is much more hemodynamically stable and appears to have pneumonia under control with Levaquin therapy. Plan to complete 10 days of total therapy. Patient is still having increased PEEP and FiO2 requirements. Patient has not responded well to transition to Precedex therapy. Patient is in the process of being transferred vision back to propofol therapy. Clinical suspicion is that patient may require tracheostomy and PEG secondary to failure to progress. Increase in FiO2 and PEEP requirements likely secondary to volume 2. Acute kidney injury Likely secondary to ATN, as the patient was initially diuresed on admission to the hospital and also developed a component of hypotension on arrival to the ICU. Nephrology is currently following. The patient did not undergo hemodialysis yesterday. Hemodialysis support will be continued per nephrology recommendations. 3. Indeterminate troponin/acute on chronic diastolic heart failure Echocardiogram revealed no wall motion abnormalities. Patient with diastolic abnormalities noted on echocardiogram. Complicated by renal function, but patient appears to be minimally responding to volume removal. Patient does have increase in weight and appears volume overloaded at this time. Likely has an element of pulmonary congestion leading to current findings. 4. Morbid obesity/diabetes mellitus/anxiety/depression/PTSD Complicates care, management, recovery and prognosis. Continue Accu-Cheks and sliding scale insulin coverage. Tube feeds will be continued. Since baseline psychiatric medications cannot be reinitiated as these cannot be crushed. Continue Risperdal therapy. 5. Social issues Patient is currently intubated and sedated. Multiple attempts by social work to touch base with family members have not resulted in anyone willing to speak on her behalf. Patient reportedly has estranged herself from multiple family members. Appropriate documentation completed to see if a guardian can be arranged for tracheostomy and PEG if aggressive measures are to be continued. TIME: 34 minutes of critical care time was spent addressing the patient's acute combined respiratory failure, severe community-acquired pneumonia, acute kidney injury, indeterminate troponin, morbid obesity, review of all data and collaboration with the care team. (8 AM to 9 AM) Code Visit [id number]: [id number] Critical care first hour
[2018-06-02 10:23] LABS: Anion Gap 15 (5-15); BUN 87 mg/dL (7-18); BUN/Creat Ratio 11.1 RATIO (10-20); Calcium,Total 8.6 mg/dL (8.5-10.1); Chloride 99 mmol/L (98-107); Creatinine, Serum 7.87 mg/dL (0.55-1.02); EST Glomerular Filtration Rate 6 mL/min (>60); Est Glom Filt Rate - Afr Amer 7 mL/min (>60); Estimated Creatinine Clearance 7.38 ml/min; Glucose 127 mg/dL (74-106); Potassium 4.4 mmol/L (3.5-5.1); Sodium Level 136 mmol/L (136-145)
[2018-06-02 11:11] LABS: Bedside Glucose 153 mg/dL (70-110)
[2018-06-02] MEDS: Paliperidone 6 MG Tablet PO ×2 (12:27→21:59)
[2018-06-02] MEDS: RisperiDONE 0.5 MG Tablet GT ×2 (12:28→21:59)
[2018-06-02] MEDS: Polyethylene Glycol 3350 17 GM PACKET GT (12:28)
[2018-06-02] MEDS: Famotidine 20 MG Tablet GT (12:28)
[2018-06-02] MEDS: RisperiDONE 2 MG Tablet GT ×2 (12:28→21:59)
[2018-06-02] MEDS: Menthol/Lanolin/Calamine/Znox 113 GM Tube 1 APPLIC TOPICAL ×2 (12:29→22:00)
[2018-06-02] MEDS: Chlorhexidine 15 ML PO ×2 (12:29→21:59)
--- NOTE | 2018-06-02 15:41 | PCM.PN.REN ---
Patient Problems: Active and Suspected Problems Chest pain (Acute) Acute respiratory failure with hypoxia (Acute) PNA (pneumonia) (Acute) Acute kidney injury (Acute) Subjective: intubated high FiO2 and PEEP - Physical Exam Neck: Supple, No JVD, Negative Carotid Bruits Lungs: Clear to auscultation, Normal air movement Cardiovascular: Regular rate, No murmurs Abdomen: Bowel Sounds Present, Soft, Non Tender Extremities: No edema, Capillary Refill Less than 3 Seconds Skin: No rashes, No breakdown Musculoskeletal: No Tenderness to Palpation of Joints or Extremities Vital Signs Temp Pulse Resp BP Pulse Ox 99.3 F H 109 H 22 H 155/62 H 90 06/02/18 12:00 06/02/18 15:07 06/02/18 15:07 06/02/18 12:00 06/02/18 15:07 Oxygen Flow Rate (L/min) 50 Oxygen Delivery Method Mechanical Ventilator Weight: 141.9 kg Body Mass Index (BMI) 49.7 Finger Stick Blood Glucose 150 Intake and Output for Last 24 Hours 05/31/18 06/01/18 06/02/18 23:59 23:59 23:59 Intake Total 3057 / 3057 3030 / 3030 2075 / 2075 Output Total 98 / 98 130 / 130 100 / 100 Balance 2959 / 2959 2900 / 2900 1975 / 1975 Laboratory Tests Past 24 Hrs 06/02/18 09:15 Sodium 136 Potassium 4.4 Chloride 99 Carbon Dioxide 22.0 Anion Gap 15 BUN 87 H Creatinine 7.87 H* Estim Creat Clear Calc 7.38 Est GFR (MDRD) Af Amer 7 L Est GFR (MDRD) Non-Af 6 L BUN/Creatinine Ratio 11.1 Glucose 127 H Calcium 8.6 POC Glucose 06/02/18 06/02/18 06/02/18 11:07 06:06 02:12 POC Glucose 153 H 174 H 246 H 06/01/18 06/01/18 21:35 17:41 POC Glucose 180 H 218 H Medical Necessity - Tobacco Use Smoking Status: Never smoker Tobacco Use: Non-smoker Assessment/Plan All Active Problems Chest pain (Acute) Acute respiratory failure with hypoxia (Acute) PNA (pneumonia) (Acute) Acute kidney injury (Acute) 1-Acute kidney injury. Normal creatinine 2014. Patient presented with creatinine 1.07 mg/dL. UA showed 100 protein and 100 blood but no RBCs or white cell count. 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 C3/C4 are within normal limits. Hepatitis panel is negative No recovery of kidney function. Remains anuric Patient is currently hemodialysis dependent for metabolic and volume support. Dialysis started on May 28. HD today 2-Acute respiratory failure from bilateral pneumonia. Ventilator support as per the wire mesh gate assembler. [id number] pneumonia. On levaquin which is appropriately dosed for HD patient.
[2018-06-02 16:26] LABS: Bedside Glucose 179 mg/dL (70-110)
[2018-06-02] MEDS: Vital AF 1.2 Cal Liquid 1,000 ML 60 ML GT (17:54)
[2018-06-02] MEDS: Heparin 10,000 UNITS/10 ML Vial IV (19:00)
--- NOTE | 2018-06-02 23:05 | NURSING ---
Dialysis nurse unable to sign into eCollect. Dialyzed 4L off. VS stable. Did have issues with clots in the dialysis tubing which needed to be changed. Dialysis nurse suggested that patient may need a bolus of heparin before next dialysis treatment.
[2018-06-02 23:21] LABS: Bedside Glucose 208 mg/dL (70-110)
[2018-06-03] VITALS (36 sets, daily range): BP systolic 92–123; BP diastolic 47–69; PULSE 69–110; RESP 14–20; TEMP 36.6–37.7; O2SAT 88–98
[2018-06-03] MEDS: Propofol 10MG/Ml 1,000 MG/100 ML Bottle 8.292 MG CONT INF ×4 (02:27→17:15)
[2018-06-03] MEDS: 0.9% NaCl Peripheral Flush Adult/Peds IV ×2 (02:27→05:37)
[2018-06-03] MEDS: fentaNYL drip 100 ML 15 MCG IV ×3 (05:33→19:14)
[2018-06-03] MEDS: Nystatin Powder 15gm Bottle 1 APPLIC TOPICAL ×3 (05:33→23:24)
[2018-06-03] MEDS: Heparin Injection (Vial) 5,000 UNIT/ML VIAL 5000 UNIT SC ×3 (05:33→23:23)
[2018-06-03] MEDS: Insulin Lispro 100 UNIT/ML INSULN.PEN SC ×4 (05:34→23:39)
[2018-06-03 05:46] LABS: Bedside Glucose 202 mg/dL (70-110)
[2018-06-03 07:19] LABS: Anion Gap 14 (5-15); BUN 48 mg/dL (7-18); BUN/Creat Ratio 10.3 RATIO (10-20); Calcium,Total 8.7 mg/dL (8.5-10.1); Chloride 96 mmol/L (98-107); Creatinine, Serum 4.68 mg/dL (0.55-1.02); EST Glomerular Filtration Rate 10 mL/min (>60); Est Glom Filt Rate - Afr Amer 12 mL/min (>60); Estimated Creatinine Clearance 12.42 ml/min; Glucose 230 mg/dL (74-106); Magnesium 2.6 mg/dL (1.6-2.6); Phosphorus 5.4 mg/dL (2.5-4.9); Potassium 3.6 mmol/L (3.5-5.1); Sodium Level 136 mmol/L (136-145)
[2018-06-03] MEDS: Ipratropium/Albuterol Sulfate 3 ML AMPUL.NEB INHALATION ×4 (07:26→18:48)
--- NOTE | 2018-06-03 07:59 | PN_ITS ---
Subjective: Patient did okay overnight. Patient has been able to be weaned to 50% following 4 L removal with hemodialysis. Patient continues to keep her eyes open, but not really following commands at this time. Patient has been successfully transitioned back to propofol therapy with much improved vent synchrony. General: Alert, No apparent distress, Non-Cooperative, - - Morbidly obese. Good vent synchrony noted. HEENT: Atraumatic, PERRLA, EOMI, Normocephalic, - - No scleral icterus or injection noted. Oral: Moist Mucosa, No Gingival or Mucosal Lesions/ Ulcerations Neck: Supple, No JVD, No Nodes, Trachea Midline Lungs: No rhonchi, No wheeze, No rales, Diminished, - - Symmetric expansion. No dullness to percussion. Cardiovascular: Regular rate, Regular Rhythm, Normal S1, Normal S2, No murmurs, No rub noted, No Gallop Abdomen: Bowel Sounds Present, Soft, Non Tender, Non-Distended, Obese Extremities: No cyanosis, Capillary Refill Less than 3 Seconds, Edema Skin: - - No significant change compared to previous Musculoskeletal: No Tenderness to Palpation of Joints or Extremities, No Muscle Wasting Lymphatic: No Cervical, Supraclavicular, or Inguinal Adenopathy Neurological: Cranial nerves II-XII grossly intact, Neuro grossly intact, Motor Exam 5/5 strength throughout Psych/Mental Status: Flat Affect Vital Signs Temp Pulse Resp BP Pulse Ox 36.6 C 79 16 94/53 L 90 06/03/18 04:00 06/03/18 07:25 06/03/18 07:25 06/03/18 07:00 06/03/18 07:25 Oxygen Flow Rate (L/min) 50 Oxygen Delivery Method Mechanical Ventilator Weight: 137.3 kg Body Mass Index (BMI) 49.7 Finger Stick Blood Glucose 150 Intake and Output for Last 24 Hours 06/01/18 06/02/18 06/03/18 23:59 23:59 23:59 Intake Total 3030 / 3030 4088 / 4088 650 / 650 Output Total 130 / 130 4250 / 4250 50 / 50 Balance 2900 / 2900 -162 / -162 600 / 600 Labs (Last 48 Hours) 06/01/18 06/01/18 06/01/18 09:44 13:50 17:41 Sodium Potassium Chloride Carbon Dioxide Anion Gap BUN Creatinine Estim Creat Clear Calc Est GFR (MDRD) Af Amer Est GFR (MDRD) Non-Af BUN/Creatinine Ratio Glucose Calcium Phosphorus Magnesium POC Glucose 208 H 190 H 218 H 06/01/18 06/02/18 06/02/18 21:35 02:12 06:06 Sodium Potassium Chloride Carbon Dioxide Anion Gap BUN Creatinine Estim Creat Clear Calc Est GFR (MDRD) Af Amer Est GFR (MDRD) Non-Af BUN/Creatinine Ratio Glucose Calcium Phosphorus Magnesium POC Glucose 180 H 246 H 174 H 06/02/18 06/02/18 06/02/18 09:15 11:07 15:49 Sodium 136 Potassium 4.4 Chloride 99 Carbon Dioxide 22.0 Anion Gap 15 BUN 87 H Creatinine 7.87 H* Estim Creat Clear Calc 7.38 Est GFR (MDRD) Af Amer 7 L Est GFR (MDRD) Non-Af 6 L BUN/Creatinine Ratio 11.1 Glucose 127 H Calcium 8.6 Phosphorus Magnesium POC Glucose 153 H 179 H 06/02/18 06/03/18 06/03/18 23:13 05:36 06:40 Sodium 136 Potassium 3.6 Chloride 96 L Carbon Dioxide 26.0 Anion Gap 14 BUN 48 H Creatinine 4.68 H Estim Creat Clear Calc 12.42 Est GFR (MDRD) Af Amer 12 L Est GFR (MDRD) Non-Af 10 L BUN/Creatinine Ratio 10.3 Glucose 230 H Calcium 8.7 Phosphorus 5.4 H Magnesium 2.6 POC Glucose 208 H 202 H Medical Necessity - Tobacco Use Smoking Status: Never smoker Tobacco Use: Non-smoker Assessment/Plan All Active Problems Chest pain (Acute) Acute respiratory failure with hypoxia (Acute) PNA (pneumonia) (Acute) Acute kidney injury (Acute) RECOMMENDATIONS: 1. Continue antibiotics as ordered to complete 10 days. Levaquin can likely be discontinued after today's dose 2. Decrease PEEP if able to maintain 50% FiO2 3. Continue hemodialysis per nephrology recommendations. Surgery for tunneled line if patient requires second access 4. Continue tube feeds as ordered. 5. Continue propofol therapy with plans to maintain a RASS of -1. 6. Continue appropriate ICU prophylaxis 7. Continue Risperdal therapy and basal insulin 8. Anticipate trach, PEG next week once guardianship can be determined IMPRESSIONS: 1. Acute combined respiratory failure secondary to severe community-acquired pneumonia Patient has had some improvement in respiratory status following significant removal of fluid yesterday. Will attempt to wean PEEP if patient is able to maintain 50% FiO2. Low clinical suspicion the patient will be able to tolerate any extubation trials. Guardianship proceedings were initiated last week. Patient will likely need a trach and PEG to have an opportunity to further recover. Patient will have completed 10 days after today's dose of Levaquin. 2. Acute kidney injury Likely secondary to ATN, as the patient was initially diuresed on admission to the hospital and also developed a component of hypotension on arrival to the ICU. Nephrology is currently following. The patient did undergo hemodialysis yesterday with good results. Hemodialysis support will be continued per nephrology recommendations. If patient needs another hemodialysis access, anticipate surgery consult for tunneled hemodialysis line as patient do es not appear to be recovering renal function. 3. Indeterminate troponin/acute on chronic diastolic heart failure Echocardiogram revealed no wall motion abnormalities. Patient with diastolic abnormalities noted on echocardiogram. Complicated by renal function, but patient appears to be minimally responding to volume removal. Patient does have increase in weight and appears volume overloaded at this time. Likely has an element of pulmonary congestion leading to current findings. 4. Morbid obesity/diabetes mellitus/anxiety/depression/PTSD Complicates care, management, recovery and prognosis. Continue Accu-Cheks and sliding scale insulin coverage. Tube feeds will be continued. Since baseline psychiatric medications cannot be reinitiated as these cannot be crushed. Continue Risperdal therapy. 5. Social issues Patient is currently intubated and sedated. Multiple attempts by social work to touch base with family members have not resulted in anyone willing to speak on her behalf. Patient reportedly has estranged herself from multiple family members. Appropriate documentation completed to see if a guardian can be arranged for tracheostomy and PEG if aggressive measures are to be continued. TIME: 32 minutes of critical care time was spent addressing the patient's acute combined respiratory failure, severe community-acquired pneumonia, acute kidney injury, indeterminate troponin, morbid obesity, review of all data and collaboration with the care team. (6:15 AM to 7:15 AM) Code Visit 9xxxx: [id number] Critical care first hour
[2018-06-03] MEDS: CHLORHEXIDINE GLUC 2% CLOTH 1 EACH TOWELETTE TOPICAL (08:32)
--- NOTE | 2018-06-03 09:29 | PCM.PROGNOTE ---
Patient Problems: Active and Suspected Problems Chest pain (Acute) Acute respiratory failure with hypoxia (Acute) PNA (pneumonia) (Acute) Acute kidney injury (Acute) Subjective: Chief complaint: Follow-up after admission for severe community-acquired pneumonia complicated by acute hypoxic and hypercapnic respiratory failure as well as acute renal failure, acute on chronic diastolic CHF and indeterminate troponin. Patient seen and examined. No acute events overnight. She is alert, spontaneous eye opening, not following commands. She had hemodialysis yesterday, 4 L was removed. FiO2 is down to 50% but remained on 12 of PEEP. She is afebrile, blood pressure and heart rate are maintained, on mechanical ventilation. - Physical Exam General: Alert, - - Spontaneous eye opening, not following commands. HEENT: Atraumatic, PERRLA, EOMI, Normocephalic Oral: Moist Mucosa, No Gingival or Mucosal Lesions/ Ulcerations Neck: Supple, No JVD, Negative Carotid Bruits, Trachea Midline, Thyroid Normal Size and Texture Lungs: No wheeze, No rales, Diminished, Rhonchi Cardiovascular: Regular rate, Regular Rhythm, Normal S1, Normal S2, No murmurs, PMI Normal Abdomen: Bowel Sounds Present, Soft, Non Tender, Non-Distended, No Hepato-splenomegaly, Obese Extremities: No clubbing, No cyanosis, Edema - Trace edema. Skin: No rashes, No breakdown Lymphatic: No Cervical, Supraclavicular, or Inguinal Adenopathy Neurological: Cranial nerves II-XII grossly intact, - - Moving all limbs. Psych/Mental Status: - - Unable to assess, not following commands. Vital Signs Temp Pulse Resp BP Pulse Ox 98 F 86 18 94/53 L 91 06/03/18 04:00 06/03/18 08:55 06/03/18 08:55 06/03/18 07:00 06/03/18 08:55 Oxygen Flow Rate (L/min) 50 Oxygen Delivery Method Mechanical Ventilator Weight: 302 lb 11.115 oz Body Mass Index (BMI) 49.7 Finger Stick Blood Glucose 150 Intake and Output for Last 24 Hours 06/01/18 06/02/18 06/03/18 23:59 23:59 23:59 Intake Total 3030 / 3030 4088 / 4088 650 / 650 Output Total 130 / 130 4250 / 4250 50 / 50 Balance 2900 / 2900 -162 / -162 600 / 600 Laboratory Tests Past 24 Hrs 06/02/18 06/03/18 09:15 06:40 Sodium 136 136 Potassium 4.4 3.6 Chloride 99 96 L Carbon Dioxide 22.0 26.0 Anion Gap 15 14 BUN 87 H 48 H Creatinine 7.87 H* 4.68 H Estim Creat Clear Calc 7.38 12.42 Est GFR (MDRD) Af Amer 7 L 12 L Est GFR (MDRD) Non-Af 6 L 10 L BUN/Creatinine Ratio 11.1 10.3 Glucose 127 H 230 H Calcium 8.6 8.7 Phosphorus 5.4 H Magnesium 2.6 POC Glucose 06/03/18 06/02/18 06/02/18 05:36 23:13 15:49 POC Glucose 202 H 208 H 179 H 06/02/18 11:07 POC Glucose 153 H Medical Necessity - Tobacco Use Smoking Status: Never smoker Tobacco Use: Non-smoker Assessment/Plan All Active Problems Chest pain (Acute) Acute respiratory failure with hypoxia (Acute) PNA (pneumonia) (Acute) Acute kidney injury (Acute) This is a 57 years old female patient presented to the emergency room because of shortness of breath, found to have findings consistent with severe community acquired pneumonia as well as acute on chronic diastolic CHF, complicated by acute hypoxic and hypercapnic respiratory failure as well as acute renal failure requiring hemodialysis. #1 acute hypoxic and hypercapnic respiratory failure: Secondary to pneumonia. Remains on mechanical ventilation, FiO2 is down to 50% but remained on 12 of PEEP. Blood pressure and heart rate are maintained, has been afebrile overnight. Blood culture showed no growth in 5 days. Urine culture revealed Klebsiella pneumoniae. She is on IV Levaquin. Plan to continue same treatment today, anticipate tracheostomy and PEG tube placement this coming week as patient has been on mechanical ventilation for 11 days. We are awaiting guardianship by the family law attorney. #2 acute severe community-acquired pneumonia: Remained on IV Levaquin. She has been afebrile, no leukocytosis. Blood culture showed no growth in 5 days. Pneumococcal and Legionella antigen were negative. Urine culture positive for Klebsiella pneumonia. Respiratory panel for viruses were negative. Sputum culture revealed mixed normal respiratory addison, yeast, no Selin. Plan to continue same treatment for now. #3 acute renal failure: Received hemodialysis, at 4 L removed yesterday. BUN and creatinine continued improved, creatinine is down to 4.68, it was 7.87 yesterday. She is oliguric, making some urine. Plan for dialysis according to nephrology recommendation. #4 acute on chronic diastolic CHF/indeterminate troponin: Has been on hemodialysis. 2D echocardiogram revealed normal LV size and function, ejection fraction was 55%, stage I diastolic dysfunction. Plan to continue with dialysis according to nephrology. #5 type 2 diabetes mellitus: She is on insulin sliding scale as well as Lantus twice daily. Blood sugar fluctuating, around 200. She has been tolerating tube feeds. #6 depression/anxiety: Medications held, she is on sedation with IV Precedex and fentanyl. #7 hyperlipidemia: Medication held as well. #8 DVT prophylaxis: Subcu heparin. This note was generated with [employer] dictation software. It may contain incorrect words, spelling, and punctuation that were not noted in checking the note before signing. Code Visit Inpatient E&M: 00792 Subs Hosp L3
--- NOTE | 2018-06-03 09:34 | PN_ITS ---
Patient Problems: Active and Suspected Problems Chest pain (Acute) Acute respiratory failure with hypoxia (Acute) PNA (pneumonia) (Acute) Acute kidney injury (Acute) Subjective: Chief complaint: Follow-up after admission for severe community-acquired pneumonia complicated by acute hypoxic and hypercapnic respiratory failure as we ll as acute renal failure, acute on chronic diastolic CHF and indeterminate troponin. Patient seen and examined. No acute events overnight. She is alert, spontaneous eye opening, not following commands. She had hemodialysis yesterday, 4 L was removed. FiO2 is down to 50% but remained on 12 of PEEP. She is afebrile, blood pressure and heart rate are maintained, on mechanical ventilation. - Physical Exam General: Alert, - - Spontaneous eye opening, not following commands. HEENT: Atraumatic, PERRLA, EOMI, Normocephalic Oral: Moist Mucosa, No Gingival or Mucosal Lesions/ Ulcerations Neck: Supple, No JVD, Negative Carotid Bruits, Trachea Midline, Thyroid Normal Size and Texture Lungs: No wheeze, No rales, Diminished, Rhonchi Cardiovascular: Regular rate, Regular Rhythm, Normal S1, Normal S2, No murmurs, PMI Normal Abdomen: Bowel Sounds Present, Soft, Non Tender, Non-Distended, No Hepato- splenomegaly, Obese Extremities: No clubbing, No cyanosis, Edema - Trace edema. Skin: No rashes, No breakdown Lymphatic: No Cervical, Supraclavicular, or Inguinal Adenopathy Neurological: Cranial nerves II-XII grossly intact, - - Moving all limbs. Psych/Mental Status: - - Unable to assess, not following commands. Vital Signs Temp Pulse Resp BP Pulse Ox 98 F 86 18 94/53 L 91 06/03/18 04:00 06/03/18 08:55 06/03/18 08:55 06/03/18 07:00 06/03/18 08:55 Oxygen Flow Rate (L/min) 50 Oxygen Delivery Method Mechanical Ventilator Weight: 302 lb 11.115 oz Body Mass Index (BMI) 49.7 Finger Stick Blood Glucose 150 Intake and Output for Last 24 Hours 06/01/18 06/02/18 06/03/18 23:59 23:59 23:59 Intake Total 3030 / 3030 4088 / 4088 650 / 650 Output Total 130 / 130 4250 / 4250 50 / 50 Balance 2900 / 2900 -162 / -162 600 / 600 Laboratory Tests Past 24 Hrs 06/02/18 06/03/18 09:15 06:40 Sodium 136 136 Potassium 4.4 3.6 Chloride 99 96 L Carbon Dioxide 22.0 26.0 Anion Gap 15 14 BUN 87 H 48 H Creatinine 7.87 H* 4.68 H Estim Creat Clear Calc 7.38 12.42 Est GFR (MDRD) Af Amer 7 L 12 L Est GFR (MDRD) Non-Af 6 L 10 L BUN/Creatinine Ratio 11.1 10.3 Glucose 127 H 230 H Calcium 8.6 8.7 Phosphorus 5.4 H Magnesium 2.6 POC Glucose 06/03/18 06/02/18 06/02/18 05:36 23:13 15:49 POC Glucose 202 H 208 H 179 H 06/02/18 11:07 POC Glucose 153 H Medical Necessity - Tobacco Use Smoking Status: Never smoker Tobacco Use: Non-smoker Assessment/Plan All Active Problems Chest pain (Acute) Acute respiratory failure with hypoxia (Acute) PNA (pneumonia) (Acute) Acute kidney injury (Acute) This is a 57 years old female patient presented to the emergency room because of shortness of breath, found to have findings consistent with severe community acquired pneumonia as well as acute on chronic diastolic CHF, complicated by acute hypoxic and hypercapnic respiratory failure as well as acute renal failure requiring hemodialysis. #1 acute hypoxic and hypercapnic respiratory failure: Secondary to pneumonia. Remains on mechanical ventilation, FiO2 is down to 50% but remained on 12 of PEEP. Blood pressure and heart rate are maintained, has been afebrile overnight. Blood culture showed no growth in 5 days. Urine culture revealed Klebsiella pneumoniae. She is on IV Levaquin. Plan to continue same treatment today, anticipate tracheostomy and PEG tube placement this coming week as patient has been on mechanical ventilation for 11 days. We are awaiting guardianship by the library historian. #2 acute severe community-acquired pneumonia: Remained on IV Levaquin. She has been afebrile, no leukocytosis. Blood culture showed no growth in 5 days. Pneumococcal and Legionella antigen were negative. Urine culture positive for Klebsiella pneumonia. Respiratory panel for viruses were negative. Sputum c ulture revealed mixed normal respiratory addison, yeast, no Selin. Plan to continue same treatment for now. #3 acute renal failure: Received hemodialysis, at 4 L removed yesterday. BUN and creatinine continued improved, creatinine is down to 4.68, it was 7.87 yesterday. She is oliguric, making some urine. Plan for dialysis according to nephrology recommendation. #4 acute on chronic diastolic CHF/indeterminate troponin: Has been on hemodialysis. 2D echocardiogram revealed normal LV size and function, ejection fraction was 55%, stage I diastolic dysfunction. Plan to continue with dialysis according to nephrology. #5 type 2 diabetes mellitus: She is on insulin sliding scale as well as Lantus twice daily. Blood sugar fluctuating, around 200. She has been tolerating tube feeds. #6 depression/anxiety: Medications held, she is on sedation with IV Precedex and fentanyl. #7 hyperlipidemia: Medication held as well. #8 DVT prophylaxis: Subcu heparin. This note was generated with [employer] dictation software. It may contain incorrect words, spelling, and punctuation that were not noted in checking the note before signing. Code Visit Inpatient E&M: 02538 Subs Hosp L3
[2018-06-03] MEDS: levoFLOXacin IV 500 MG/100 ML BAG 100 MG IV (09:54)
[2018-06-03] MEDS: Famotidine 20 MG Tablet GT (10:04)
[2018-06-03] MEDS: RisperiDONE 2 MG Tablet GT ×2 (10:04→23:23)
[2018-06-03] MEDS: RisperiDONE 0.5 MG Tablet GT ×2 (10:04→23:23)
[2018-06-03] MEDS: Chlorhexidine 15 ML PO ×2 (10:09→23:24)
[2018-06-03] MEDS: Menthol/Lanolin/Calamine/Znox 113 GM Tube 1 APPLIC TOPICAL ×2 (10:10→22:15)
--- NOTE | 2018-06-03 11:37 | PN.RENAL_ITS ---
Patient Problems: Active and Suspected Problems Chest pain (Acute) Acute respiratory failure with hypoxia (Acute) PNA (pneumonia) (Acute) Acute kidney injury (Acute) Subjective: O2 requirements better - Physical Exam HEENT: Atraumatic, PERRLA, EOMI, Normocephalic Neck: Supple, No JVD, Negative Carotid Bruits Lungs: Clear to auscultation, Normal air movement Cardiovascular: Regular rate, No murmurs Abdomen: Bowel Sounds Present, Soft, Non Tender Extremities: No edema, Capillary Refill Less than 3 Seconds Skin: No rashes, No breakdown Musculoskeletal: No Tenderness to Palpation of Joints or Extremities Vital Signs Temp Pulse Resp BP Pulse Ox 99.3 F H 81 18 106/65 91 06/03/18 11:00 06/03/18 11:00 06/03/18 11:00 06/03/18 11:00 06/03/18 11:00 Oxygen Flow Rate (L/min) 50 Oxygen Delivery Method Mechanical Ventilator Weight: 137.3 kg Body Mass Index (BMI) 49.7 Finger Stick Blood Glucose 150 Intake and Output for Last 24 Hours 06/01/18 06/02/18 06/03/18 23:59 23:59 23:59 Intake Total 3030 / 3030 4088 / 4088 650 / 650 Output Total 130 / 130 4250 / 4250 50 / 50 Balance 2900 / 2900 -162 / -162 600 / 600 Laboratory Tests Past 24 Hrs 06/03/18 06:40 Sodium 136 Potassium 3.6 Chloride 96 L Carbon Dioxide 26.0 Anion Gap 14 BUN 48 H Creatinine 4.68 H Estim Creat Clear Calc 12.42 Est GFR (MDRD) Af Amer 12 L Est GFR (MDRD) Non-Af 10 L BUN/Creatinine Ratio 10.3 Glucose 230 H Calcium 8.7 Phosphorus 5.4 H Magnesium 2.6 POC Glucose 06/03/18 06/02/18 06/02/18 05:36 23:13 15:49 POC Glucose 202 H 208 H 179 H Medical Necessity - Tobacco Use Smoking Status: Never smoker Tobacco Use: Non-smoker Assessment/Plan All Active Problems Chest pain (Acute) Acute respiratory failure with hypoxia (Acute) PNA (pneumonia) (Acute) Acute kidney injury (Acute) 1-Acute kidney injury. Normal creatinine 2014. Patient presented with creatinine 1.07 mg/dL. UA showed 100 protein and 100 blood but no RBCs or white cell count. 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 C3/C4 are within normal limits. Hepatitis panel is negative No recovery of kidney function. Remains anuric Patient is currently hemodialysis dependent for metabolic and volume support. Dialysis started on May 28. 2-Acute respiratory failure from bilateral pneumonia. Ventilator support as per the medicaid billing specialist. 9-[id number] pneumonia. On levaquin which is appropriately dosed for HD patient. Plan FiO2 down to 50% PEEP is down a bit today looks edematous peripherally will do isolated UF today access if right subclavian line d/w Dr Calles
[2018-06-03 11:51] LABS: Bedside Glucose 287 mg/dL (70-110)
[2018-06-03] MEDS: Vital AF 1.2 Cal Liquid 1,000 ML 60 ML GT (11:55)
[2018-06-03 17:15] LABS: Bedside Glucose 267 mg/dL (70-110)
[2018-06-03] MEDS: 0.9% NaCl IVPB Med Flush (250 mL) 15 ML IV (21:07)
[2018-06-03 23:46] LABS: Bedside Glucose 242 mg/dL (70-110)
[2018-06-04] VITALS (33 sets, daily range): BP systolic 95–135; BP diastolic 52–87; PULSE 69–99; RESP 12–19; TEMP 36.1–37.4; O2SAT 45–98
[2018-06-04] MEDS: Propofol 10MG/Ml 1,000 MG/100 ML Bottle 8.292 MG CONT INF ×5 (01:33→21:53)
[2018-06-04] MEDS: fentaNYL drip 100 ML 15 MCG IV ×3 (01:34→20:46)
[2018-06-04 06:40] LABS: Bedside Glucose 269 mg/dL (70-110)
[2018-06-04] MEDS: CHLORHEXIDINE GLUC 2% CLOTH 1 EACH TOWELETTE TOPICAL (06:41)
[2018-06-04] MEDS: Ipratropium/Albuterol Sulfate 3 ML AMPUL.NEB INHALATION ×3 (06:41→15:00)
[2018-06-04] MEDS: Nystatin Powder 15gm Bottle 1 APPLIC TOPICAL ×3 (06:42→22:04)
[2018-06-04] MEDS: Heparin Injection (Vial) 5,000 UNIT/ML VIAL 5000 UNIT SC (06:45)
[2018-06-04] MEDS: Insulin Lispro 100 UNIT/ML INSULN.PEN SC ×3 (06:45→17:10)
--- NOTE | 2018-06-04 07:32 | PCM.PN.INT ---
Subjective: The patient was seen and examined at the bedside this morning. Events from the last 24 hours have been reviewed. The patient is currently afebrile, hemodynamically stable and maintaining appropriate oxygen saturations on assist control mode mechanical ventilation with an FiO2 requirement of 40% and PEEP of 10. The patient is currently overall net +10.5 L for the admission. The patient continues to require hemodialysis support. Unfortunately, the patient's temporary subclavian hemodialysis catheter is no longer functional. Attempts to obtain an emergency guardianship for the patient are still pending. The patient continues to lack capacity for medical decision making. There is no family or next of kin available to give consent for a tunneled hemodialysis catheter. Therefore, I spoke with nephrology, and we are both in agreement that the procedure is medically necessary to maintain the clinical stability of the patient. Objective: The patient's most recent lab work, culture data and imaging studies have all been personally reviewed. Infectious workup was noted to be negative with the exception of a urine culture which was positive for Klebsiella pneumonia. Surface echocardiogram dated May 25 revealed evidence of stage I diastolic dysfunction with an ejection fraction of 55%. General: Alert, No apparent distress, - - Currently tolerating assist control mode mechanical ventilation without issue. HEENT: Atraumatic, PERRLA, Normocephalic Oral: No Gingival or Mucosal Lesions/ Ulcerations, - - Endotracheal and OG tubes remain in place. Neck: Supple, No Nodes, Trachea Midline, - - Temporary hemodialysis catheter remains in place. Lungs: No rhonchi, No wheeze, No rales, Diminished Cardiovascular: Regular rate, Regular Rhythm, Normal S1, Normal S2, No murmurs Abdomen: Bowel Sounds Present, Soft, Non Tender, Obese Extremities: No clubbing, No cyanosis, Edema Skin: - - No significant change from previous. Musculoskeletal: No Tenderness to Palpation of Joints or Extremities, No Muscle Wasting Lymphatic: No Cervical, Supraclavicular, or Inguinal Adenopathy Neurological: - - Alert and will follow some simple commands. No focal deficits. Vital Signs Temp Pulse Resp BP Pulse Ox 36.1 C L 79 16 110/64 94 06/04/18 04:00 06/04/18 07:19 06/04/18 07:19 06/04/18 06:00 06/04/18 07:19 Oxygen Flow Rate (L/min) 50 Oxygen Delivery Method Mechanical Ventilator Weight: 305 lb 8.971 oz Body Mass Index (BMI) 49.7 Finger Stick Blood Glucose 150 Intake and Output for Last 24 Hours 06/02/18 06/03/18 06/04/18 23:59 23:59 23:59 Intake Total 4088 / 4088 2155 / 2155 1742 / 1742 Output Total 4250 / 4250 95 / 95 100 / 100 Balance -162 / -162 206 / 2059 1642 / 1642 Labs (Last 48 Hours) 06/02/18 06/02/18 06/02/18 09:15 11:07 15:49 Sodium 136 Potassium 4.4 Chloride 99 Carbon Dioxide 22.0 Anion Gap 15 BUN 87 H Creatinine 7.87 H* Estim Creat Clear Calc 7.38 Est GFR (MDRD) Af Amer 7 L Est GFR (MDRD) Non-Af 6 L BUN/Creatinine Ratio 11.1 Glucose 127 H Calcium 8.6 Phosphorus Magnesium POC Glucose 153 H 179 H 06/02/18 06/03/18 06/03/18 23:13 05:36 06:40 Sodium 136 Potassium 3.6 Chloride 96 L Carbon Dioxide 26.0 Anion Gap 14 BUN 48 H Creatinine 4.68 H Estim Creat Clear Calc 12.42 Est GFR (MDRD) Af Amer 12 L Est GFR (MDRD) Non-Af 10 L BUN/Creatinine Ratio 10.3 Glucose 230 H Calcium 8.7 Phosphorus 5.4 H Magnesium 2.6 POC Glucose 208 H 202 H 06/03/18 06/03/18 06/03/18 11:37 17:07 22:58 Sodium Potassium Chloride Carbon Dioxide Anion Gap BUN Creatinine Estim Creat Clear Calc Est GFR (MDRD) Af Amer Est GFR (MDRD) Non-Af BUN/Creatinine Ratio Glucose Calcium Phosphorus Magnesium POC Glucose 287 H 267 H 242 H 06/04/18 06:35 Sodium Potassium Chloride Carbon Dioxide Anion Gap BUN Creatinine Estim Creat Clear Calc Est GFR (MDRD) Af Amer Est GFR (MDRD) Non-Af BUN/Creatinine Ratio Glucose Calcium Phosphorus Magnesium POC Glucose 269 H Clinical Impression(s) from Imaging Studies Chest X-Ray 05/23/18 15:15 IMPRESSION: Findings suggestive CHF with superimposed atelectasis and/or infiltrate in the right midlung. Electronically Signed: Royer Rowe MD at 15:56 EST , Service support , Chest X-Ray 05/24/18 10:30 IMPRESSION: Findings consistent with CHF. This appears worsening with areas of consolidation at the left lung base. Electronically Signed: Michael Braxton DO at 17:08 EST Tel [phone], Service support , KUB X-Ray 05/24/18 14:46 IMPRESSION: The tip of the orogastric tube is in the body of the stomach. Electronically Signed: Royer Rowe MD at 15:43 EST , Service support , Chest X-Ray 05/24/18 15:10 IMPRESSION: The tip of the endotracheal tube is at 6.3 cm proximal to the ehsan. Electronically Signed: Royer Rowe MD at 15:44 EST , Service support , Chest X-Ray 05/25/18 05:11 IMPRESSION: The tip of the endotracheal tube is at 2.4 sinus proximal to the ehsan. The remainder the examination is unchanged. Electronically Signed: Royer Rowe MD at 8:15 EST , Service support , Chest CT 05/25/18 09:38 IMPRESSION: Infiltrates in both lungs worse in the right upper lobe and both lower lobes. Electronically Signed: Royer Rowe MD at 11:32 EST , Service support , Chest X-Ray 05/26/18 10:28 IMPRESSION: Stable interval exam. Placement of right subclavian central venous catheter without evidence of pneumothorax Electronically Signed: Rocco Zepeda DO at 11:52 EST Tel , Service support , Chest X-Ray 05/28/18 05:55 IMPRESSION: Stable findings. Persistent bilateral pulmonary infiltrates, larger on the right. at 0514 Reported and signed by: West Saini MD Electronically Signed: West Saini, at 5:13 EST Tel , Service support , Chest X-Ray 05/28/18 15:06 IMPRESSION: All lines are in good position. Progressive bilateral infiltrations. Electronically Signed: Royer Rowe MD at 16:01 EST , Service support , Chest X-Ray 05/30/18 08:00 IMPRESSION: Stable examination. Electronically Signed: Royer Rowe MD at 13:52 EST , Service support , Medical Necessity - Tobacco Use Smoking Status: Never smoker Tobacco Use: Non-smoker Assessment/Plan All Active Problems Chest pain (Acute) Acute respiratory failure with hypoxia (Acute) PNA (pneumonia) (Acute) Acute kidney injury (Acute) RECOMMENDATIONS: 1. Proceed with placement of tunneled hemodialysis catheter. General surgery consulted to assist. 2. Establish emergency guardianship, if feasible. commercial development manager and social work assisting. 3. The patient will require ENT consultation at some point this week for tracheostomy placement. 4. We will discuss potential PEG tube placement with general surgery as well. 5. Continue to wean FiO2 and PEEP as tolerated. 6. Continue hemodialysis per nephrology recommendations. 7. Continue tube feeds as ordered. 8. Continue antibiotics to complete treatment course. 9. Continue appropriate ICU prophylaxis. IMPRESSIONS: 1. Acute combined respiratory failure secondary to severe community-acquired pneumonia The patient has been on treatment for multifocal pneumonia, and although improving, continues to have a significant ventilator requirement. At this time, the patient's antibiotics will be continued to complete her treatment course. We will continue to wean her FiO2 and PEEP as tolerated. Given the patient's inability to be weaned from mechanical ventilation, she will be a candidate for both trach and PEG tube placement. Attempt to obtain emergency guardianship are currently underway. Once established, will discuss tracheostomy placement with ENT and PEG tube placement with general surgery. 2. Acute kidney injury Likely secondary to ATN, as the patient was initially diuresed on admission to the hospital and also developed a component of hypotension on arrival to the ICU. Nephrology is currently following. The patient has been responding to hemodialysis support. Unfortunately, her temporary hemodialysis catheter is no longer functional. The patient currently lacks capacity for medical decision making. There is no family or next of kin available to obtain consent for tunneled hemodialysis catheter placement. Therefore, following a discussion with nephrology, we are both in agreement that the placement of a tunneled hemodialysis catheter is medically necessary to ensure ongoing clinical stability for the patient. General surgery has been consulted accordingly, with plans to place the tunneled dialysis line later today. 3. Indeterminate troponin/acute on chronic diastolic heart failure Echocardiogram revealed no wall motion abnormalities. The patient undoubtedly needs further volume removal. Once the patient's issues with her dialysis catheter have resolved, fluid removal with HD will be continued per nephrology recommendations. 4. Morbid obesity/diabetes mellitus/anxiety/depression/PTSD Complicates care, management, recovery and prognosis. Continue Accu-Cheks and sliding scale insulin coverage. Tube feeds will be continued. TIME: 38 minutes of critical care time, independent of procedures, was spent addressing the patient's acute combined respiratory failure, severe community acquired pneumonia, acute kidney injury, diastolic heart failure with exacerbation, review of all data and collaboration with the care team. ([id number]) Code Visit 9xxxx: [id number] Critical care first hour
--- NOTE | 2018-06-04 07:35 | PN_ITS ---
Subjective: The patient was seen and examined at the bedside this morning. Events from the last 24 hours have been reviewed. The patient is currently afebrile, hemodynamically stable and maintaining appropriate oxygen saturations on assist control mode mechanical ventilation with an FiO2 requirement of 40% and PEEP of 10. The patient is currently overall net +10.5 L for the admission. The patient continues to require hemodialysis support. Unfortunately, the patient's temporary subclavian hemodialysis catheter is no longer functional. Attempts to obtain an emergency guardianship for the patient are still pending. The patient continues to lack capacity for medical decision making. There is no family or next of kin available to give consent for a tunneled hemodialysis catheter. Therefore, I spoke with nephrology, and we are both in agreement that the procedure is medically necessary to maintain the clinical stability of the patient. Objective: The patient's most recent lab work, culture data and imaging studies have all been personally reviewed. Infectious workup was noted to be negative with the exception of a urine culture which was positive for Klebsiella pneumonia. Surface echocardiogram dated May 25 revealed evidence of stage I diastolic dysfunction with an ejection fraction of 55%. General: Alert, No apparent distress, - - Currently tolerating assist control mode mechanical ventilation without issue. HEENT: Atraumatic, PERRLA, Normocephalic Oral: No Gingival or Mucosal Lesions/ Ulcerations, - - Endotracheal and OG tubes remain in place. Neck: Supple, No Nodes, Trachea Midline, - - Temporary hemodialysis catheter remains in place. Lungs: No rhonchi, No wheeze, No rales, Diminished Cardiovascular: Regular rate, Regular Rhythm, Normal S1, Normal S2, No murmurs Abdomen: Bowel Sounds Present, Soft, Non Tender, Obese Extremities: No clubbing, No cyanosis, Edema Skin: - - No significant change from previous. Musculoskeletal: No Tenderness to Palpation of Joints or Extremities, No Muscle Wasting Lymphatic: No Cervical, Supraclavicular, or Inguinal Adenopathy Neurological: - - Alert and will follow some simple commands. No focal deficits. Vital Signs Temp Pulse Resp BP Pulse Ox 36.1 C L 79 16 110/64 94 06/04/18 04:00 06/04/18 07:19 06/04/18 07:19 06/04/18 06:00 06/04/18 07:19 Oxygen Flow Rate (L/min) 50 Oxygen Delivery Method Mechanical Ventilator Weight: 305 lb 8.971 oz Body Mass Index (BMI) 49.7 Finger Stick Blood Glucose 150 Intake and Output for Last 24 Hours 06/02/18 06/03/18 06/04/18 23:59 23:59 23:59 Intake Total 4088 / 4088 2155 / 2155 1742 / 1742 Output Total 4250 / 4250 95 / 95 100 / 100 Balance -162 / -162 206 / 2059 1642 / 1642 Labs (Last 48 Hours) 06/02/18 06/02/18 06/02/18 09:15 11:07 15:49 Sodium 136 Potassium 4.4 Chloride 99 Carbon Dioxide 22.0 Anion Gap 15 BUN 87 H Creatinine 7.87 H* Estim Creat Clear Calc 7.38 Est GFR (MDRD) Af Amer 7 L Est GFR (MDRD) Non-Af 6 L BUN/Creatinine Ratio 11.1 Glucose 127 H Calcium 8.6 Phosphorus Magnesium POC Glucose 153 H 179 H 06/02/18 06/03/18 06/03/18 23:13 05:36 06:40 Sodium 136 Potassium 3.6 Chloride 96 L Carbon Dioxide 26.0 Anion Gap 14 BUN 48 H Creatinine 4.68 H Estim Creat Clear Calc 12.42 Est GFR (MDRD) Af Amer 12 L Est GFR (MDRD) Non-Af 10 L BUN/Creatinine Ratio 10.3 Glucose 230 H Calcium 8.7 Phosphorus 5.4 H Magnesium 2.6 POC Glucose 208 H 202 H 06/03/18 06/03/18 06/03/18 11:37 17:07 22:58 Sodium Potassium Chloride Carbon Dioxide Anion Gap BUN Creatinine Estim Creat Clear Calc Est GFR (MDRD) Af Amer Est GFR (MDRD) Non-Af BUN/Creatinine Ratio Glucose Calcium Phosphorus Magnesium POC Glucose 287 H 267 H 242 H 06/04/18 06:35 Sodium Potassium Chloride Carbon Dioxide Anion Gap BUN Creatinine Estim Creat Clear Calc Est GFR (MDRD) Af Amer Est GFR (MDRD) Non-Af BUN/Creatinine Ratio Glucose Calcium Phosphorus Magnesium POC Glucose 269 H Clinical Impression(s) from Imaging Studies Chest X-Ray 05/23/18 15:15 IMPRESSION: Findings suggestive CHF with superimposed atelectasis and/or infiltrate in the right midlung. Electronically Signed: Royer Rowe MD at 15:56 EST , Service support , Chest X-Ray 05/24/18 10:30 IMPRESSION: Findings consistent with CHF. This appears worsening with areas of consolidation at the left lung base. Electronically Signed: Michael Braxton DO at 17:08 EST Tel [phone], Service support , KUB X-Ray 05/24/18 14:46 IMPRESSION: The tip of the orogastric tube is in the body of the stomach. Electronically Signed: Royer Rowe MD at 15:43 EST , Service support , Chest X-Ray 05/24/18 15:10 IMPRESSION: The tip of the endotracheal tube is at 6.3 cm proximal to the ehsan. Electronically Signed: Royer Rowe MD at 15:44 EST , Service support , Chest X-Ray 05/25/18 05:11 IMPRESSION: The tip of the endotracheal tube is at 2.4 sinus proximal to the ehsan. The remainder the examination is unchanged. Electronically Signed: Royer Rowe MD at 8:15 EST , Service support , Chest CT 05/25/18 09:38 IMPRESSION: Infiltrates in both lungs worse in the right upper lobe and both lower lobes. Electronically Signed: Royer Rowe MD at 11:32 EST , Service support , Chest X-Ray 05/26/18 10:28 IMPRESSION: Stable interval exam. Placement of right subclavian central venous catheter without evidence of pneumothorax Electronically Signed: Rocco Zepeda DO at 11:52 EST Tel , Service support , Chest X-Ray 05/28/18 05:55 IMPRESSION: Stable findings. Persistent bilateral pulmonary infiltrates, larger on the right. at 0514 Reported and signed by: West Saini MD Electronically Signed: West Saini, at 5:13 EST Tel , Service support , Chest X-Ray 05/28/18 15:06 IMPRESSION: All lines are in good position. Progressive bilateral infiltrations. Electronically Signed: Royer Rowe MD at 16:01 EST , Service support , Chest X-Ray 05/30/18 08:00 IMPRESSION: Stable examination. Electronically Signed: Royer Rowe MD at 13:52 EST , Service support , Medical Necessity - Tobacco Use Smoking Status: Never smoker Tobacco Use: Non-smoker Assessment/Plan All Active Problems Chest pain (Acute) Acute respiratory failure with hypoxia (Acute) PNA (pneumonia) (Acute) Acute kidney injury (Acute) RECOMMENDATIONS: 1. Proceed with placement of tunneled hemodialysis catheter. General surgery consulted to assist. 2. Establish emergency guardianship, if feasible. ticket manager and social work assisting. 3. The patient will require ENT consultation at some point this week for tracheostomy placement. 4. We will discuss potential PEG tube placement with general surgery as well. 5. Continue to wean FiO2 and PEEP as tolerated. 6. Continue hemodialysis per nephrology recommendations. 7. Continue tube feeds as ordered. 8. Continue antibiotics to complete treatment course. 9. Continue appropriate ICU prophylaxis. IMPRESSIONS: 1. Acute combined respiratory failure secondary to severe community-acquired pneumonia The patient has been on treatment for multifocal pneumonia, and although improving, continues to have a significant ventilator requirement. At this time, the patient's antibiotics will be continued to complete her treatment course. We will continue to wean her FiO2 and PEEP as tolerated. Given the patient's inability to be weaned from mechanical ventilation, she will be a candidate for both trach and PEG tube placement. Attempt to obtain emergency guardianship are currently underway. Once established, will discuss tracheostomy placement with ENT and PEG tube placement with general surgery. 2. Acute kidney injury Likely secondary to ATN, as the patient was initially diuresed on admission to the hospital and also developed a component of hypotension on arrival to the ICU. Nephrology is currently following. The patient has been responding to hemodialysis support. Unfortunately, her temporary hemodialysis catheter is no longer functional. The patient currently lacks capacity for medical decision making. There is no family or next of kin available to obtain consent for tunneled hemodialysis catheter placement. Therefore, following a discussion with nephrology, we are both in agreement that the placement of a tunneled hemodialysis catheter is medically necessary to ensure ongoing clinical stability for the patient. General surgery has been consulted accordingly, with plans to place the tunneled dialysis line later today. 3. Indeterminate troponin/acute on chronic diastolic heart failure Echocardiogram revealed no wall motion abnormalities. The patient undoubtedly needs further volume removal. Once the patient's issues with her dialysis catheter have resolved, fluid removal with HD will be continued per nephrology recommendations. 4. Morbid obesity/diabetes mellitus/anxiety/depression/PTSD Complicates care, management, recovery and prognosis. Continue Accu-Cheks and sliding scale insulin coverage. Tube feeds will be continued. TIME: 38 minutes of critical care time, independent of procedures, was spent addressing the patient's acute combined respiratory failure, severe community acquired pneumonia, acute kidney injury, diastolic heart failure with exacerbation, review of all data and collaboration with the care team. ([id number]) Code Visit 9xxxx: [id number] Critical care first hour
--- NOTE | 2018-06-04 08:44 | RAD_ITS ---
STUDY: X-RAY CHEST REASON FOR EXAM: Female, 57 years old. Shortness of breath. TECHNIQUE: Single AP portable view of the chest. COMPARISON: Comparison is made with prior examination dated May 30, 2018. FINDINGS: An endotracheal tube is in situ. The tip is at 5.8 cm proximal to the ehsan. An orogastric tube is seen with the tip below the left hemidiaphragm. A left-sided internal jugular venous catheter seen with the tip at the junction of the superior vena cava and left brachiocephalic vein. A right-sided central catheter is seen with the tip in the midportion of the superior vena cava. Since prior study, there has been improved aeration of both lungs. Residual infiltration is seen in the lateral aspect of the right hemithorax as well as at the left lung base. Residual blunting of both posterior triangles. Normal size heart. Normal mediastinum and lyric. Normal visualized pulmonary arteries. There is atherosclerotic tortuosity of the aortic arch and descending thoracic aorta. There are degenerative changes of the visualized thoracic spine. Normal visualized ribs, clavicles, and shoulders. There is no demonstrated abnormality of the visualized soft tissue structures of the upper abdomen. RAD/Chest 1 View (Portable) IMPRESSION: All the support tubes are unchanged. Prior study, there has been improved aeration of both lungs as described. Electronically Signed: Royer Rowe MD at 13:50 EST , Service support ,
[2018-06-04 08:56] LABS: BUN 76 mg/dL (7-18); BUN/Creat Ratio 12.4 RATIO (10-20); Calcium,Total 8.8 mg/dL (8.5-10.1); Chloride 94 mmol/L (98-107); Creatinine, Serum 6.15 mg/dL (0.55-1.02); EST Glomerular Filtration Rate 7 mL/min (>60); Est Glom Filt Rate - Afr Amer 9 mL/min (>60); Estimated Creatinine Clearance 9.45 ml/min; Glucose 263 mg/dL (74-106); Magnesium 2.9 mg/dL (1.6-2.6); Phosphorus 7.6 mg/dL (2.5-4.9); Potassium 4.3 mmol/L (3.5-5.1); Sodium Level 135 mmol/L (136-145)
[2018-06-04 08:57] LABS: Absolute Lymphocyte Count 1.51 X10^3/ul (0.83-4.51); Absolute Neutrophil Count 7.2 X10^3/uL (2.0-7.7); Anion Gap 18 (5-15); Basophil# 0.07 X10^3/uL; Basophil% 0.7 % (0-1); Eosinophil# 0.24 X10^3/uL; Eosinophils% 2.2 % (0-5); Hematocrit 29.5 % (37-47); Hemoglobin 9.6 g/dl (12.0-15.0); Lymphocyte # 1.51 X10^3/ul (4.0); Lymphocyte % 14.1 % (19-41); Mean Corp Hgb Conc 32.5 g/gl (32-36); Mean Corpuscular Hgb 25.9 pg (27.0-32.0); Mean Corpuscular Volume 79.5 fL (81-99); Mean Platelet Vol. 8.6 fl (6.2-12.0); Monocyte# 1.43 X10^3/uL; Monocyte% 13.3 % (0-10); Neutrophil # 7.19 X10^3/uL (2.7-7.7); Neutrophil % 67.1 % (47-70); POSITIVE COUNT YES; POSITIVE DIFFERENTIAL NO; POSITIVE MORPHOLOGY YES; Platelet Count 339 K/mm3 (150-450); RBC Distribution Width CV 14.5 % (11.6-14.6); RBC Distribution Width SD 41.8 fl (35.1-43.9); Red Blood Count 3.71 M/mm3 (4.2-5.4); White Blood Count 10.7 K/mm3 (4.4-11.0)
[2018-06-04] MEDS: Vital AF 1.2 Cal Liquid 1,000 ML 60 ML GT (09:54)
[2018-06-04] MEDS: Chlorhexidine 15 ML PO ×2 (09:55→23:36)
[2018-06-04] MEDS: Menthol/Lanolin/Calamine/Znox 113 GM Tube 1 APPLIC TOPICAL ×2 (09:56→22:03)
[2018-06-04] MEDS: RisperiDONE 2 MG Tablet GT ×2 (09:57→22:04)
[2018-06-04] MEDS: RisperiDONE 0.5 MG Tablet GT ×2 (09:58→22:04)
[2018-06-04] MEDS: Famotidine 20 MG Tablet GT (09:58)
--- NOTE | 2018-06-04 10:05 | CASEMGMT ---
GASTON spoke with Renee this am. She has not heard back from Hunter Rice yet. She will try and get in touch with him today so we can progress. Apoorva [employer]
--- NOTE | 2018-06-04 10:25 | PCM.PN.HOSP ---
Patient Problems: Active and Suspected Problems Chest pain (Acute) Acute respiratory failure with hypoxia (Acute) PNA (pneumonia) (Acute) Acute kidney injury (Acute) Subjective: Patient seen and examined. She was admitted and is being managed for acute hypoxic and hypercapnic respiratory failure due to severe community-acquired pneumonia. Her stay has been complicated by acute renal failure, acute on chronic diastolic heart failure and indeterminate troponin levels. She remains intubated. Patient opens her eyes when called but unable to communicate as she is intubated. Per her nurse, PEEP has been reduced from 12-10 today. Plan is for tracheostomy as she is unable to be weaned off the ventilator. She had hemodialysis done yesterday with removal of 4 L of fluid. Labs and vitals reviewed. Vitals/I&O's: Vital Signs Temp Pulse Resp BP Pulse Ox 97 F L 79 16 110/64 94 06/04/18 04:00 06/04/18 07:19 06/04/18 07:19 06/04/18 06:00 06/04/18 07:19 Oxygen Flow Rate (L/min) 50 Oxygen Delivery Method Mechanical Ventilator Weight: 305 lb 8.971 oz Body Mass Index (BMI) 49.7 Finger Stick Blood Glucose 150 Intake and Output for Last 24 Hours 06/02/18 06/03/18 06/04/18 23:59 23:59 23:59 Intake Total 4088 / 4088 2155 / 2155 1742 / 1742 Output Total 4250 / 4250 95 / 95 100 / 100 Balance -162 / -162 2060 / 2060 1642 / 1642 General: Alert, - - intubated, sedated. Lethargic HEENT: Atraumatic, PERRLA, EOMI, Normocephalic Oral: Dry Mucosa Neck: Supple, No JVD, Negative Carotid Bruits Lungs: - - decreased breath sounds bibasally. No wheezes or crackles. Cardiovascular: Regular rate, Regular Rhythm, Normal S1, Normal S2, No murmurs Abdomen: Bowel Sounds Present, Soft, Non Tender, Non-Distended, No Hepato-splenomegaly Extremities: No clubbing, No cyanosis, No edema, Capillary Refill Less than 3 Seconds Skin: No rashes, No breakdown Musculoskeletal: No Tenderness to Palpation of Joints or Extremities Lymphatic: No Cervical, Supraclavicular, or Inguinal Adenopathy Neurological: Cranial nerves II-XII grossly intact, Neuro grossly intact Psych/Mental Status: - - intubated, sedated. RASS score is 0 Laboratory Results 06/03/18 11:37: POC Glucose 287 H 06/03/18 17:07: POC Glucose 267 H 06/03/18 22:58: POC Glucose 242 H 06/04/18 06:35: POC Glucose 269 H 06/04/18 08:35: WBC 10.7, RBC 3.71 L, Hgb 9.6 L, Hct 29.5 L, MCV 79.5 L, MCH 25.9 L, MCHC 32.5, RDW 14.5, RDW Differential 41.8, Plt Count 339, MPV 8.6, Immature Gran % (Auto) 2.600 H, Neut % (Auto) 67.1, Lymph % (Auto) 14.1 L, [place] % (Auto) 13.3 H, Eos % (Auto) 2.2, Baso % (Auto) 0.7, Absolute Neuts (auto) 7.2, Absolute Lymphs (auto) 1.51, Total Counted Not Reportable, Diff Path Review August foll 06/04/18 08:35: Sodium 135 L, Potassium 4.3, Chloride 94 L, Carbon Dioxide 23.0, Anion Gap 18 H, BUN 76 H, Creatinine 6.15 H, Estim Creat Clear Calc 9.45, Est GFR (MDRD) Af Amer 9 L, Est GFR (MDRD) Non-Af 7 L, BUN/Creatinine Ratio 12.4, Glucose 263 H, Calcium 8.8, Phosphorus 7.6 H, Magnesium 2.9 H Diagnostic Data KUB X-Ray 05/24/18 14:46 IMPRESSION: The tip of the orogastric tube is in the body of the stomach. Electronically Signed: Royer Rowe MD at 15:43 EST , Service support , Chest CT 05/25/18 09:38 IMPRESSION: Infiltrates in both lungs worse in the right upper lobe and both lower lobes. Electronically Signed: Royer Rowe MD at 11:32 EST , Service support , Current Medications Acetaminophen (Tylenol Liquid) 650 mg GT Q4H PRN PRN PRN Reason: T > 100.5 F Last Admin: 05/25/18 01:27 Dose: 650 mg Albuterol Sulfate (Ventolin Aerosols) 2.5 mg INHALATION Q2H PRN PRN PRN Reason: SOB &/OR WHEEZING Albuterol/Ipratropium (Duoneb) 3 ml INHALATION Q4HWA.RT [facility] Last Admin: 06/04/18 06:41 Dose: 3 ml Calamine/Phenol (Calmoseptine Ointment) 1 applic TOPICAL BID [facility]; Protocol Last Admin: 06/04/18 09:56 Dose: 1 applicatio Chlorhexidine Gluconate () 1 each TOPICAL DAILY [facility] Last Admin: 06/04/18 06:41 Dose: 1 each Chlorhexidine Gluconate () 15 ml PO BID [facility] Last Admin: 06/04/18 09:55 Dose: 15 ml Dextrose (D50w Syringe) 0 gm IV X1 PRN; Protocol PRN Reason: Hypoglycemia Famotidine (Pepcid) 20 mg GT DAILY [facility] Last Admin: 06/04/18 09:58 Dose: 20 mg Glucagon () 1 mg IM .X1 PRN PRN Reason: Hypoglycemia Heparin Sodium (Porcine) (Heparin Na) 5,000 unit SC Q8 [facility] Last Admin: 06/04/18 06:45 Dose: 5,000 unit Heparin Sodium (Porcine) () 2,500 units IV UD PRN PRN Reason: HEPARIN FLUSH Sodium Chloride () 250 mls @ 15 mls/hr IV .[id number] PRN PRN Reason: SALINE FLUSH Last Admin: 06/03/18 21:07 Dose: 15 mls/hr Sodium Chloride () 250 mls @ 15 mls/hr IV .[id number] PRN PRN Reason: SALINE FLUSH Sodium Chloride () 250 mls @ 15 mls/hr IV .[id number] PRN PRN Reason: SALINE FLUSH Sodium Chloride () 250 mls @ 15 mls/hr IV .[id number] PRN PRN Reason: SALINE FLUSH Fentanyl () 100 mls @ 15 mls/hr IV .Q20H [facility] Last Admin: 06/04/18 01:34 Dose: 15 mls/hr Enteral Nutritional Formula (Vital Af 1.2 Glenn Liquid) 1,000 mls @ 60 mls/hr GT .[id number] [facility] Last Admin: 06/04/18 09:54 Dose: 60 mls/hr Levofloxacin (Levaquin Iv) 500 mg in 100 mls @ 100 mls/hr IV Q48 [facility] Last Admin: 06/03/18 09:54 Dose: 100 mls/hr Propofol (Diprivan) 1,000 mg in 100 mls @ 8.292 mls/hr CONT INF .Q12H [facility] Last Admin: 06/04/18 09:55 Dose: 8.292 mls/hr Insulin Glargine (Lantus (Bk)) 60 units SC BID [facility] Last Admin: 06/04/18 09:57 Dose: 60 u Insulin Human Lispro (Humalog Kwikpen (Bkc)) 0 unit SC Q6 [facility]; Protocol Last Admin: 06/04/18 06:45 Dose: 12 u Nystatin (Mycostatin Powder) 1 applic TOPICAL TID [facility]; Protocol Last Admin: 06/04/18 09:56 Dose: 1 applic Paliperidone (Invega) 6 mg PO BID [facility] Last Admin: 06/04/18 09:06 Dose: Not Given Polyethylene Glycol (Miralax) 17 gm GT DAILY [facility] Last Admin: 06/04/18 09:06 Dose: Not Given Risperidone (Risperdal) 2 mg GT BID [facility] Last Admin: 06/04/18 09:57 Dose: 2 mg Risperidone (Risperdal) 0.5 mg GT BID [facility] Last Admin: 06/04/18 09:58 Dose: 0.5 mg Sodium Chloride () 5 - 15 ml IV UD PRN PRN Reason: SALINE FLUSH Last Admin: 06/03/18 05:37 Dose: 15 ml Sodium Chloride () 10 ml IV UD PRN PRN Reason: Dialysis Catheter Flush Medical Necessity - Tobacco Use Smoking Status: Never smoker Tobacco Use: Non-smoker Assessment/Plan All Active Problems Chest pain (Acute) Acute respiratory failure with hypoxia (Acute) PNA (pneumonia) (Acute) Acute kidney injury (Acute) 1. Acute hypoxic and hypercapnic respiratory failure due to community acquired pneumonia remains intubated and sedated. Unable to wean off ventilator PEEP reduced to 10, from 12 today; on FiO2 of 50% Blood cultures showed no growth and urine grew Klebsiella pneumonia. Is on IV Levaquin. Plan is for patient to have tracheostomy and PEG tube as she has been on mechanical ventilation for 12 days today. Awaiting guardianship by district attorney. 2. Community-acquired pneumonia: As under 1. Sputum culture showed mixed normal respiratory addison with no Selin. 3. Acute renal failure: Nephrology on board. Had dialysis 2 days ago with removal of 4 L. Creatinine is 6.15 today. Potassium is 4.3. Will likely need dialysis again today. 4. Acute on chronic diastolic heart failure 2D echo showed normal left ventricular size and function with EF of 55% in stage I diastolic dysfunction. Requiring dialysis for fluid removal. 5. Type 2 diabetes mellitus: On Lantus and insulin sliding scale. Currently on tube feeding. 6. Depression and anxiety: Currently on Precedex and fentanyl DVT prophylaxis: Heparin Code Visit Inpatient E&M: 26345 Subs Hosp L3
--- NOTE | 2018-06-04 10:44 | PN_ITS ---
Patient Problems: Active and Suspected Problems Chest pain (Acute) Acute respiratory failure with hypoxia (Acute) PNA (pneumonia) (Acute) Acute kidney injury (Acute) Subjective: Patient seen and examined. She was admitted and is being managed for acute hypoxic and hypercapnic respiratory failure due to severe community-acquired p neumonia. Her stay has been complicated by acute renal failure, acute on chronic diastolic heart failure and indeterminate troponin levels. She remains intubated. Patient opens her eyes when called but unable to communicate as she is intubated. Per her nurse, PEEP has been reduced from 12-10 today. Plan is for tracheostomy as she is unable to be weaned off the ventilator. She had hemodialysis done yesterday with removal of 4 L of fluid. Labs and vitals reviewed. Vitals/I&O's: Vital Signs Temp Pulse Resp BP Pulse Ox 97 F L 79 16 110/64 94 06/04/18 04:00 06/04/18 07:19 06/04/18 07:19 06/04/18 06:00 06/04/18 07:19 Oxygen Flow Rate (L/min) 50 Oxygen Delivery Method Mechanical Ventilator Weight: 305 lb 8.971 oz Body Mass Index (BMI) 49.7 Finger Stick Blood Glucose 150 Intake and Output for Last 24 Hours 06/02/18 06/03/18 06/04/18 23:59 23:59 23:59 Intake Total 4088 / 4088 2155 / 2155 1742 / 1742 Output Total 4250 / 4250 95 / 95 100 / 100 Balance -162 / -162 2060 / 2060 1642 / 1642 General: Alert, - - intubated, sedated. Lethargic HEENT: Atraumatic, PERRLA, EOMI, Normocephalic Oral: Dry Mucosa Neck: Supple, No JVD, Negative Carotid Bruits Lungs: - - decreased breath sounds bibasally. No wheezes or crackles. Cardiovascular: Regular rate, Regular Rhythm, Normal S1, Normal S2, No murmurs Abdomen: Bowel Sounds Present, Soft, Non Tender, Non-Distended, No Hepato- splenomegaly Extremities: No clubbing, No cyanosis, No edema, Capillary Refill Less than 3 Seconds Skin: No rashes, No breakdown Musculoskeletal: No Tenderness to Palpation of Joints or Extremities Lymphatic: No Cervical, Supraclavicular, or Inguinal Adenopathy Neurological: Cranial nerves II-XII grossly intact, Neuro grossly intact Psych/Mental Status: - - intubated, sedated. RASS score is 0 Laboratory Results 06/03/18 11:37: POC Glucose 287 H 06/03/18 17:07: POC Glucose 267 H 06/03/18 22:58: POC Glucose 242 H 06/04/18 06:35: POC Glucose 269 H 06/04/18 08:35: WBC 10.7, RBC 3.71 L, Hgb 9.6 L, Hct 29.5 L, MCV 79.5 L, MCH 25.9 L, MCHC 32.5, RDW 14.5, RDW Differential 41.8, Plt Count 339, MPV 8.6, Immature Gran % (Auto) 2.600 H, Neut % (Auto) 67.1, Lymph % (Auto) 14.1 L, [place] % (Auto) 13.3 H, Eos % (Auto) 2.2, Baso % (Auto) 0.7, Absolute Neuts (auto) 7.2, Absolute Lymphs (auto) 1.51, Total Counted Not Reportable, Diff Path Review August foll 06/04/18 08:35: Sodium 135 L, Potassium 4.3, Chloride 94 L, Carbon Dioxide 23.0, Anion Gap 18 H, BUN 76 H, Creatinine 6.15 H, Estim Creat Clear Calc 9.45, Est GFR (MDRD) Af Amer 9 L, Est GFR (MDRD) Non-Af 7 L, BUN/Creatinine Ratio 12.4, Glucose 263 H, Calcium 8.8, Phosphorus 7.6 H, Magnesium 2.9 H Diagnostic Data KUB X-Ray 05/24/18 14:46 IMPRESSION: The tip of the orogastric tube is in the body of the stomach. Electronically Signed: Royer Rowe MD at 15:43 EST , Service support , Chest CT 05/25/18 09:38 IMPRESSION: Infiltrates in both lungs worse in the right upper lobe and both lower lobes. Electronically Signed: Royer Rowe MD at 11:32 EST , Service support , Current Medications Acetaminophen (Tylenol Liquid) 650 mg GT Q4H PRN PRN PRN Reason: T > 100.5 F Last Admin: 05/25/18 01:27 Dose: 650 mg Albuterol Sulfate (Ventolin Aerosols) 2.5 mg INHALATION Q2H PRN PRN PRN Reason: SOB &/OR WHEEZING Albuterol/Ipratropium (Duoneb) 3 ml INHALATION Q4HWA.RT COUNT INCLUDES THE [facility] Last Admin: 06/04/18 06:41 Dose: 3 ml Calamine/Phenol (Calmoseptine Ointment) 1 applic TOPICAL BID COUNT INCLUDES THE [facility]; Protocol Last Admin: 06/04/18 09:56 Dose: 1 applicatio Chlorhexidine Gluconate () 1 each TOPICAL DAILY COUNT INCLUDES THE [facility] Last Admin: 06/04/18 06:41 Dose: 1 each Chlorhexidine Gluconate () 15 ml PO BID COUNT INCLUDES THE [facility] Last Admin: 06/04/18 09:55 Dose: 15 ml Dextrose (D50w Syringe) 0 gm IV X1 PRN; Protocol PRN Reason: Hypoglycemia Famotidine (Pepcid) 20 mg GT DAILY COUNT INCLUDES THE [facility] Last Admin: 06/04/18 09:58 Dose: 20 mg Glucagon () 1 mg IM .X1 PRN PRN Reason: Hypoglycemia Heparin Sodium (Porcine) (Heparin Na) 5,000 unit SC Q8 COUNT INCLUDES THE [facility] Last Admin: 06/04/18 06:45 Dose: 5,000 unit Heparin Sodium (Porcine) () 2,500 units IV UD PRN PRN Reason: HEPARIN FLUSH Sodium Chloride () 250 mls @ 15 mls/hr IV .[id number] PRN PRN Reason: SALINE FLUSH Last Admin: 06/03/18 21:07 Dose: 15 mls/hr Sodium Chloride () 250 mls @ 15 mls/hr IV .[id number] PRN PRN Reason: SALINE FLUSH Sodium Chloride () 250 mls @ 15 mls/hr IV .[id number] PRN PRN Reason: SALINE FLUSH Sodium Chloride () 250 mls @ 15 mls/hr IV .[id number] PRN PRN Reason: SALINE FLUSH Fentanyl () 100 mls @ 15 mls/hr IV .Q20H COUNT INCLUDES THE [facility] Last Admin: 06/04/18 01:34 Dose: 15 mls/hr Enteral Nutritional Formula (Vital Af 1.2 Glenn Liquid) 1,000 mls @ 60 mls/hr GT .[id number] COUNT INCLUDES THE [facility] Last Admin: 06/04/18 09:54 Dose: 60 mls/hr Levofloxacin (Levaquin Iv) 500 mg in 100 mls @ 100 mls/hr IV Q48 COUNT INCLUDES THE [facility] Last Admin: 06/03/18 09:54 Dose: 100 mls/hr Propofol (Diprivan) 1,000 mg in 100 mls @ 8.292 mls/hr CONT INF .Q12H COUNT INCLUDES THE [facility] Last Admin: 06/04/18 09:55 Dose: 8.292 mls/hr Insulin Glargine (Lantus (Bkc)) 60 units SC BID COUNT INCLUDES THE [facility] Last Admin: 06/04/18 09:57 Dose: 60 u Insulin Human Lispro (Humalog Kwikpen (Bkc)) 0 unit SC Q6 COUNT INCLUDES THE [facility]; Protocol Last Admin: 06/04/18 06:45 Dose: 12 u Nystatin (Mycostatin Powder) 1 applic TOPICAL TID COUNT INCLUDES THE [facility]; Protocol Last Admin: 06/04/18 09:56 Dose: 1 applic Paliperidone (Invega) 6 mg PO BID COUNT INCLUDES THE [facility] Last Admin: 06/04/18 09:06 Dose: Not Given Polyethylene Glycol (Miralax) 17 gm GT DAILY COUNT INCLUDES THE [facility] Last Admin: 06/04/18 09:06 Dose: Not Given Risperidone (Risperdal) 2 mg GT BID COUNT INCLUDES THE [facility] Last Admin: 06/04/18 09:57 Dose: 2 mg Risperidone (Risperdal) 0.5 mg GT BID COUNT INCLUDES THE [facility] Last Admin: 06/04/18 09:58 Dose: 0.5 mg Sodium Chloride () 5 - 15 ml IV UD PRN PRN Reason: SALINE FLUSH Last Admin: 06/03/18 05:37 Dose: 15 ml Sodium Chloride () 10 ml IV UD PRN PRN Reason: Dialysis Catheter Flush Medical Necessity - Tobacco Use Smoking Status: Never smoker Tobacco Use: Non-smoker Assessment/Plan All Active Problems Chest pain (Acute) Acute respiratory failure with hypoxia (Acute) PNA (pneumonia) (Acute) Acute kidney injury (Acute) 1. Acute hypoxic and hypercapnic respiratory failure due to community acquired pneumonia * remains intubated and sedated. Unable to wean off ventilator * PEEP reduced to 10, from 12 today; on FiO2 of 50% * Blood cultures showed no growth and urine grew Klebsiella pneumonia. * Is on IV Levaquin. * Plan is for patient to have tracheostomy and PEG tube as she has been on mechanical ventilation for 12 days today. * Awaiting guardianship by senior attorney. * 2. Community-acquired pneumonia: As under 1. Sputum culture showed mixed normal respiratory addison with no Selin. 3. Acute renal failure: * Nephrology on board. * Had dialysis 2 days ago with removal of 4 L. * Creatinine is 6.15 today. Potassium is 4.3. * Will likely need dialysis again today. * 4. Acute on chronic diastolic heart failure * 2D echo showed normal left ventricular size and function with EF of 55% in stage I diastolic dysfunction. * Requiring dialysis for fluid removal. * 5. Type 2 diabetes mellitus: On Lantus and insulin sliding scale. Currently on tube feeding. 6. Depression and anxiety: Currently on Precedex and fentanyl DVT prophylaxis: Heparin Code Visit Inpatient E&M: 75728 Subs Hosp L3
[2018-06-04 11:31] LABS: Bedside Glucose 240 mg/dL (70-110)
--- NOTE | 2018-06-04 12:41 | PCM.CONS.GEN ---
<Owen Luke - Last Filed: 06/04/18 12:41> Problem List (1) Acute kidney injury Status: Acute Reason for Consult Date of Consultation: 06/04/18 History of Present Illness: The patient is a 57 year old F who was admitted to [facility] with respiratory failure and sepsis a right subclavian dialysis catheter was placed and subsequently changed and has now failed again. The patient is going to need longer term dialysis request has been made for a tunneled dialysis catheter be placed.. The patient has no power of commercial attorney to give consent for this. The sewer pipe cleaner as well as the business management associate have put in their notes the urgency and need for this procedure to be done. The right subclavian dialysis catheter has subsequently been removed as well. Past Medical History Past Medical History (Chronic Problems): Chronic Problems Morbid obesity (Chronic) Histrionic personality disorder (Chronic) PTSD (post-traumatic stress disorder) (Chronic) Anxiety (Chronic) Diabetes (Chronic) Allergies No Known Allergies Allergy (Verified 05/23/18 14:58) Home Medications: Ambulatory Orders Medication Instructions Recorded Hydroxyzine Pamoate [Vistaril] 50 mg PO TID 01/13/14 Zolpidem Tartrate [Ambien] 10 mg PO QHS 01/13/14 Atorvastatin Calcium [Lipitor] 40 mg PO QHS 05/23/18 Fluticasone 0.05% [Flonase Nasal 2 sprays NASAL DAILY 05/23/18 [place]] Insulin Human 70/30 [Novolog Mix 35 unit SC BID 05/23/18 70-30 Flexpen Syrn] Linagliptin [Tradjenta] 5 mg PO DAILY 05/23/18 Lorazepam [Ativan] 1 mg PO BID 05/23/18 Meloxicam 7.5 mg PO DAILY 05/23/18 Paliperidone [Paliperidone ER] 6 mg PO BID 05/23/18 Ranitidine HCl 150 mg PO DAILY 05/23/18 Surgical History: cholecystectomy, - - wrist surger (R) Lives: Spouse/ Significant Other Smoking Status: Never smoker Tobacco Use: Non-smoker Alcohol: None Drugs: None - *Family History Maternal History Items: Cancer - lung cancer Paternal History Items: No pertinent history Review of Systems Unable to obtain accurate/complete ROS d/t: Patient is currently intubated and on propofol and we are unable to obtain Patient Problems: Active and Suspected Problems Chest pain (Acute) Acute respiratory failure with hypoxia (Acute) PNA (pneumonia) (Acute) Acute kidney injury (Acute) - Physical Exam General: - - Patient is intubated and on propofol she will open her eyes only it does not appear that she is able to understand what I am saying Neck: Supple, No JVD, - - Right neck area is clean without signs of infection or lesions Lungs: Clear to auscultation Cardiovascular: Regular rate, Regular Rhythm, No murmurs Abdomen: Obese Vital Signs Temp Pulse Resp BP Pulse Ox 97 F L 79 16 110/64 94 06/04/18 04:00 06/04/18 07:19 06/04/18 07:19 06/04/18 06:00 06/04/18 07:19 Oxygen Flow Rate (L/min) 50 Oxygen Delivery Method Mechanical Ventilator Weight: 305 lb 8.971 oz Body Mass Index (BMI) 49.7 Finger Stick Blood Glucose 150 Intake and Output for Last 24 Hours 06/02/18 06/03/18 06/04/18 23:59 23:59 23:59 Intake Total 4088 / 4088 2155 / 2155 1742 / 1742 Output Total 4250 / 4250 95 / 95 100 / 100 Balance -162 / -162 2060 / 2060 1642 / 1642 Laboratory Tests Past 24 Hrs 06/04/18 06/04/18 08:35 08:35 WBC 10.7 RBC 3.71 L Hgb 9.6 L Hct 29.5 L MCV 79.5 L MCH 25.9 L MCHC 32.5 RDW 14.5 RDW Differential 41.8 Plt Count 339 MPV 8.6 Immature Gran % (Auto) 2.600 H Neut % (Auto) 67.1 Lymph % (Auto) 14.1 L [place] % (Auto) 13.3 H Eos % (Auto) 2.2 Baso % (Auto) 0.7 Absolute Neuts (auto) 7.2 Absolute Lymphs (auto) 1.51 Total Counted Not Reportable Diff Path Review May foll Sodium 135 L Potassium 4.3 Chloride 94 L Carbon Dioxide 23.0 Anion Gap 18 H BUN 76 H Creatinine 6.15 H Estim Creat Clear Calc 9.45 Est GFR (MDRD) Af Amer 9 L Est GFR (MDRD) Non-Af 7 L BUN/Creatinine Ratio 12.4 Glucose 263 H Calcium 8.8 Phosphorus 7.6 H Magnesium 2.9 H POC Glucose 06/04/18 06/04/18 06/03/18 11:21 06:35 22:58 POC Glucose 240 H 269 H 242 H 06/03/18 17:07 POC Glucose 267 H Assessment/Plan All Active Problems Chest pain (Acute) Acute respiratory failure with hypoxia (Acute) PNA (pneumonia) (Acute) Acute kidney injury (Acute) The plan is to have tunneled dialysis catheters be placed today by my partner Dr. Strauss. To my understanding the business management associate as well as the sewer pipe cleaner I put in their notes the emergent need for these catheters to be placed and I have discussed the case extensively with Dr. Strauss and we will be in the process of getting this scheduled today. <Guerrero Strauss - Last Filed: 06/04/18 15:34> Reason for Consult History of Present Illness: The patient is a 57 year old F [] Past Medical History Allergies No Known Allergies Allergy (Verified 05/23/18 14:58) - Physical Exam Vital Signs Temp Pulse Resp BP Pulse Ox 99 F 80 13 117/65 94 06/04/18 12:00 06/04/18 12:48 06/04/18 12:48 06/04/18 12:00 06/04/18 12:48 Oxygen Flow Rate (L/min) 50 Oxygen Delivery Method Mechanical Ventilator Weight: 305 lb 8.971 oz Body Mass Index (BMI) 49.7 Finger Stick Blood Glucose 150 Intake and Output for Last 24 Hours 06/02/18 06/03/18 06/04/18 23:59 23:59 23:59 Intake Total 4088 / 4088 2155 / 2155 2301 / 2301 Output Total 4250 / 4250 95 / 95 100 / 100 Balance -162 / -162 2059 / 2059 2200 / 2200 Laboratory Tests Past 24 Hrs 06/04/18 06/04/18 08:35 08:35 WBC 10.7 RBC 3.71 L Hgb 9.6 L Hct 29.5 L MCV 79.5 L MCH 25.9 L MCHC 32.5 RDW 14.5 RDW Differential 41.8 Plt Count 339 MPV 8.6 Immature Gran % (Auto) 2.600 H Neut % (Auto) 67.1 Lymph % (Auto) 14.1 L [place] % (Auto) 13.3 H Eos % (Auto) 2.2 Baso % (Auto) 0.7 Absolute Neuts (auto) 7.2 Absolute Lymphs (auto) 1.51 Total Counted Not Reportable Diff Path Review May foll Sodium 135 L Potassium 4.3 Chloride 94 L Carbon Dioxide 23.0 Anion Gap 18 H BUN 76 H Creatinine 6.15 H Estim Creat Clear Calc 9.45 Est GFR (MDRD) Af Amer 9 L Est GFR (MDRD) Non-Af 7 L BUN/Creatinine Ratio 12.4 Glucose 263 H Calcium 8.8 Phosphorus 7.6 H Magnesium 2.9 H POC Glucose 06/04/18 06/04/18 06/03/18 11:21 06:35 22:58 POC Glucose 240 H 269 H 242 H 06/03/18 17:07 POC Glucose 267 H Assessment/Plan I have had the opportunity to discuss this patient's care both with Dr. Owen Luke and with Dr. Aiden Corbin. The patient is under the care in the intensive care unit and is felt to be in urgent need for ongoing hemodialysis. My instructions are that risk management has also reviewed this patient's situation. My understanding is that no family members are desiring of acting as medical power of commercial attorney. It is felt by Dr. Corbin and that the patient will not survive without dialysis. I have been requested to assist with the placement of this catheter has Dr. Luke is otherwise occupied handling other surgical care. The physicians involved with the request for the tunneled dialysis catheters are aware of the technique, benefits, risks and alternatives. We will proceed in an effort to facilitate their ongoing management of this patient. Guerrero Strauss M.D., F.A.C.S.
--- NOTE | 2018-06-04 12:45 | CON.PCM_ITS ---
<Owen Luke - Last Filed: 06/04/18 12:41> Problem List (1) Acute kidney injury Status: Acute Reason for Consult Date of Consultation: 06/04/18 History of Present Illness: The patient is a 57 year old F who was admitted to [facility] with respiratory failure and sepsis a right subclavian dialysis catheter was placed and subsequently changed and has now failed again. The patient is going to need longer term dialysis request has been made for a tunneled dialysis catheter be placed.. The patient has no power of title attorney to give consent for this. The senior technical support analyst as well as the enterprise analyst have put in their notes the urgency and need for this procedure to be done. The right subclavian dialysis catheter has subsequently been removed as well. Past Medical History Past Medical History (Chronic Problems): Chronic Problems Morbid obesity (Chronic) Histrionic personality disorder (Chronic) PTSD (post-traumatic stress disorder) (Chronic) Anxiety (Chronic) Diabetes (Chronic) Allergies No Known Allergies Allergy (Verified 05/23/18 14:58) Home Medications: Ambulatory Orders Medication Instructions Recorded Hydroxyzine Pamoate [Vistaril] 50 mg PO TID 01/13/14 Zolpidem Tartrate [Ambien] 10 mg PO QHS 01/13/14 Atorvastatin Calcium [Lipitor] 40 mg PO QHS 05/23/18 Fluticasone 0.05% [Flonase Nasal 2 sprays NASAL DAILY 05/23/18 [place]] Insulin Human 70/30 [Novolog Mix 35 unit SC BID 05/23/18 70-30 Flexpen Syrn] Linagliptin [Tradjenta] 5 mg PO DAILY 05/23/18 Lorazepam [Ativan] 1 mg PO BID 05/23/18 Meloxicam 7.5 mg PO DAILY 05/23/18 Paliperidone [Paliperidone ER] 6 mg PO BID 05/23/18 Ranitidine HCl 150 mg PO DAILY 05/23/18 Surgical History: cholecystectomy, - - wrist surger (R) Lives: Spouse/ Significant Other Smoking Status: Never smoker Tobacco Use: Non-smoker Alcohol: None Drugs: None - *Family History Maternal History Items: Cancer - lung cancer Paternal History Items: No pertinent history Review of Systems Unable to obtain accurate/complete ROS d/t: Patient is currently intubated and on propofol and we are unable to obtain Patient Problems: Active and Suspected Problems Chest pain (Acute) Acute respiratory failure with hypoxia (Acute) PNA (pneumonia) (Acute) Acute kidney injury (Acute) - Physical Exam General: - - Patient is intubated and on propofol she will open her eyes only it does not appear that she is able to understand what I am saying Neck: Supple, No JVD, - - Right neck area is clean without signs of infection or lesions Lungs: Clear to auscultation Cardiovascular: Regular rate, Regular Rhythm, No murmurs Abdomen: Obese Vital Signs Temp Pulse Resp BP Pulse Ox 97 F L 79 16 110/64 94 06/04/18 04:00 06/04/18 07:19 06/04/18 07:19 06/04/18 06:00 06/04/18 07:19 Oxygen Flow Rate (L/min) 50 Oxygen Delivery Method Mechanical Ventilator Weight: 305 lb 8.971 oz Body Mass Index (BMI) 49.7 Finger Stick Blood Glucose 150 Intake and Output for Last 24 Hours 06/02/18 06/03/18 06/04/18 23:59 23:59 23:59 Intake Total 4088 / 4088 2155 / 2155 1742 / 1742 Output Total 4250 / 4250 95 / 95 100 / 100 Balance -162 / -162 2060 / 2060 1642 / 1642 Laboratory Tests Past 24 Hrs 06/04/18 06/04/18 08:35 08:35 WBC 10.7 RBC 3.71 L Hgb 9.6 L Hct 29.5 L MCV 79.5 L MCH 25.9 L MCHC 32.5 RDW 14.5 RDW Differential 41.8 Plt Count 339 MPV 8.6 Immature Gran % (Auto) 2.600 H Neut % (Auto) 67.1 Lymph % (Auto) 14.1 L [place] % (Auto) 13.3 H Eos % (Auto) 2.2 Baso % (Auto) 0.7 Absolute Neuts (auto) 7.2 Absolute Lymphs (auto) 1.51 Total Counted Not Reportable Diff Path Review May foll Sodium 135 L Potassium 4.3 Chloride 94 L Carbon Dioxide 23.0 Anion Gap 18 H BUN 76 H Creatinine 6.15 H Estim Creat Clear Calc 9.45 Est GFR (MDRD) Af Amer 9 L Est GFR (MDRD) Non-Af 7 L BUN/Creatinine Ratio 12.4 Glucose 263 H Calcium 8.8 Phosphorus 7.6 H Magnesium 2.9 H POC Glucose 06/04/18 06/04/18 06/03/18 11:21 06:35 22:58 POC Glucose 240 H 269 H 242 H 06/03/18 17:07 POC Glucose 267 H Assessment/Plan All Active Problems Chest pain (Acute) Acute respiratory failure with hypoxia (Acute) PNA (pneumonia) (Acute) Acute kidney injury (Acute) The plan is to have tunneled dialysis catheters be placed today by my partner Dr. Strauss. To my understanding the enterprise analyst as well as the senior technical support analyst I put in their notes the emergent need for these catheters to be placed and I have discussed the case extensively with Dr. Strauss and we will be in the process of getting this scheduled today. <Guerrero Strauss - Last Filed: 06/04/18 15:34> Reason for Consult History of Present Illness: The patient is a 57 year old F [] Past Medical History Allergies No Known Allergies Allergy (Verified 05/23/18 14:58) - Physical Exam Vital Signs Temp Pulse Resp BP Pulse Ox 99 F 80 13 117/65 94 06/04/18 12:00 06/04/18 12:48 06/04/18 12:48 06/04/18 12:00 06/04/18 12:48 Oxygen Flow Rate (L/min) 50 Oxygen Delivery Method Mechanical Ventilator Weight: 305 lb 8.971 oz Body Mass Index (BMI) 49.7 Finger Stick Blood Glucose 150 Intake and Output for Last 24 Hours 06/02/18 06/03/18 06/04/18 23:59 23:59 23:59 Intake Total 4088 / 4088 2155 / 2155 2301 / 2301 Output Total 4250 / 4250 95 / 95 100 / 100 Balance -162 / -162 2059 / 2059 2200 / 2200 Laboratory Tests Past 24 Hrs 06/04/18 06/04/18 08:35 08:35 WBC 10.7 RBC 3.71 L Hgb 9.6 L Hct 29.5 L MCV 79.5 L MCH 25.9 L MCHC 32.5 RDW 14.5 RDW Differential 41.8 Plt Count 339 MPV 8.6 Immature Gran % (Auto) 2.600 H Neut % (Auto) 67.1 Lymph % (Auto) 14.1 L [place] % (Auto) 13.3 H Eos % (Auto) 2.2 Baso % (Auto) 0.7 Absolute Neuts (auto) 7.2 Absolute Lymphs (auto) 1.51 Total Counted Not Reportable Diff Path Review May foll Sodium 135 L Potassium 4.3 Chloride 94 L Carbon Dioxide 23.0 Anion Gap 18 H BUN 76 H Creatinine 6.15 H Estim Creat Clear Calc 9.45 Est GFR (MDRD) Af Amer 9 L Est GFR (MDRD) Non-Af 7 L BUN/Creatinine Ratio 12.4 Glucose 263 H Calcium 8.8 Phosphorus 7.6 H Magnesium 2.9 H POC Glucose 06/04/18 06/04/18 06/03/18 11:21 06:35 22:58 POC Glucose 240 H 269 H 242 H 06/03/18 17:07 POC Glucose 267 H Assessment/Plan I have had the opportunity to discuss this patient's care both with Dr. Owen Luke and with Dr. Aiden Corbin. The patient is under the care in the intensiv e care unit and is felt to be in urgent need for ongoing hemodialysis. My instructions are that risk management has also reviewed this patient's situation. My understanding is that no family members are desiring of acting as medical power of title attorney. It is felt by Dr. Corbin and that the patient will not survive without dialysis. I have been requested to assist with the placement of this catheter has Dr. Luke is otherwise occupied handling other surgical care. The physicians involved with the request for the tunneled dialysis catheters are aware of the technique, benefits, risks and alternatives. We will proceed in an effort to facilitate their ongoing management of this patient. Guerrero Strauss M.D., F.A.C.S.
--- NOTE | 2018-06-04 13:29 | CASEMGMT ---
GASTON spoke with Fuel Operator Hunter Rice. GASTON gave him the Statement of Expert Eval and Emergency guardianship supplement. He said tomorrow will be fine for payment for court fees. He will submit everything to the courts tomorrow. He spoke with RN and is aware of what we will need consent for very soon. GASTON left a message for Renee letting her know tomorrow is okay for payment of court costs. Apoorva BRAVO MSW
--- NOTE | 2018-06-04 13:32 | PCM.PN.REN ---
Patient Problems: Active and Suspected Problems Chest pain (Acute) Acute respiratory failure with hypoxia (Acute) PNA (pneumonia) (Acute) Acute kidney injury (Acute) Subjective: no new events - Physical Exam Neck: Supple, No JVD, Negative Carotid Bruits Lungs: Clear to auscultation, Normal air movement Cardiovascular: Regular rate, No murmurs Abdomen: Bowel Sounds Present, Soft, Non Tender Extremities: No edema, Capillary Refill Less than 3 Seconds Skin: No rashes, No breakdown Musculoskeletal: No Tenderness to Palpation of Joints or Extremities Vital Signs Temp Pulse Resp BP Pulse Ox 97 F L 80 13 126/87 H 94 06/04/18 04:00 06/04/18 12:48 06/04/18 12:48 06/04/18 11:00 06/04/18 12:48 Oxygen Flow Rate (L/min) 50 Oxygen Delivery Method Mechanical Ventilator Weight: 138.6 kg Body Mass Index (BMI) 49.7 Finger Stick Blood Glucose 150 Intake and Output for Last 24 Hours 06/02/18 06/03/18 06/04/18 23:59 23:59 23:59 Intake Total 4088 / 4088 2155 / 2155 2100 / 2100 Output Total 4250 / 4250 95 / 95 100 / 100 Balance -162 / -162 2059 / 2059 Laboratory Tests Past 24 Hrs 06/04/18 06/04/18 08:35 08:35 WBC 10.7 RBC 3.71 L Hgb 9.6 L Hct 29.5 L MCV 79.5 L MCH 25.9 L MCHC 32.5 RDW 14.5 RDW Differential 41.8 Plt Count 339 MPV 8.6 Immature Gran % (Auto) 2.600 H Neut % (Auto) 67.1 Lymph % (Auto) 14.1 L [place] % (Auto) 13.3 H Eos % (Auto) 2.2 Baso % (Auto) 0.7 Absolute Neuts (auto) 7.2 Absolute Lymphs (auto) 1.51 Total Counted Not Reportable Diff Path Review May Sodium 135 L Potassium 4.3 Chloride 94 L Carbon Dioxide 23.0 Anion Gap 18 H BUN 76 H Creatinine 6.15 H Estim Creat Clear Calc 9.45 Est GFR (MDRD) Af Amer 9 L Est GFR (MDRD) Non-Af 7 L BUN/Creatinine Ratio 12.4 Glucose 263 H Calcium 8.8 Phosphorus 7.6 H Magnesium 2.9 H POC Glucose 06/04/18 06/04/18 06/03/18 11:21 06:35 22:58 POC Glucose 240 H 269 H 242 H 06/03/18 17:07 POC Glucose 267 H Medical Necessity - Tobacco Use Smoking Status: Never smoker Tobacco Use: Non-smoker Assessment/Plan All Active Problems Chest pain (Acute) Acute respiratory failure with hypoxia (Acute) PNA (pneumonia) (Acute) Acute kidney injury (Acute) 1-Acute kidney injury. Normal creatinine 2014. Patient presented with creatinine 1.07 mg/dL. UA showed 100 protein and 100 blood but no RBCs or white cell count. 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 C3/C4 are within normal limits. Hepatitis panel is negative No recovery of kidney function. Remains anuric Patient is currently hemodialysis dependent for metabolic and volume support. Dialysis started on May 28. 2-Acute respiratory failure from bilateral pneumonia. Ventilator support as per the public health representative. 7-[id number]-ypophzig pneumonia. On levaquin which is appropriately dosed for HD patient. Plan Catheter is still dysfunctional, d/w Dr Corbin and Dr Luke. Tunneled line to be placed. Subclavian line removed without any immediate complications. HD tomorrow after line placement. patient currently does not have an immediate family member to consent. will go ahead and plan for procedure as medical necessity.
[2018-06-04] MEDS: Cefazolin 2 GM in 0.9% Normal Saline 100 ML IV (15:11)
--- NOTE | 2018-06-04 15:39 | NURSING ---
report given to anesthesia and surgery RN patient taken down to surgery at [id number]
[2018-06-04] MEDS: Heparin 10,000 UNITS/10 ML Vial 10000 UNITS (16:15)
[2018-06-04] MEDS: Bupivacaine Mpf 0.5% 30 ML VIAL (16:15)
--- NOTE | 2018-06-04 16:28 | PCM.OPRPT ---
Problem List (1) Acute kidney injury Status: Acute Report of Operation Date of Procedure: 06/04/18 Pre-Operative Diagnosis: Acute kidney injury Post-Operative Diagnosis: Same Surgery/Procedure Performed:: Right internal jugular pre-curved tunneled palindrome catheter placement. Reference #[id number] lot #[id number]. 19 cm pre-curved palindrome catheter Description of Surgical Findings:: Timeout was performed. The patient was deemed medically necessary by 2 caretaking physicians. She was taken to the operating room placed upon the table. Ancef 2 g were given intravenously. She already was intubated and ventilated. The right neck was sterilely prepped and draped. I placed an OpSite dressing so as to occlude access to her previous subclavian puncture site. I utilized 1% lidocaine mixed 50-50 with 0.5% Marcaine and under ultrasound guidance instilled local. I then used a micropuncture technique to gain access to the right internal jugular vein under ultrasound guidance. Micropuncture wire was inserted. Fluoroscopy demonstrated excellent positioning. Local was instilled down upon the chest wall. In order to avoid the other previous subclavian site I made an exit site more inferiorly. The 19 cm pre-curved palindrome catheter was tunneled from the chest to the neck site. A micropuncture sheath was inserted. An 035 J-wire was inserted. Serial dilatation was performed. The sheath dilator was inserted over the J-wire. Fluoroscopy demonstrated good position. The wire and dilator were removed. The catheter was advanced through the sheath and the sheath was split. The catheter was positioned to be at the SVC atrial junction. The counterincision site of the neck was closed with interrupted 5-0 Vicryl subdermal stitch. The catheters were secured with interrupted 3-0 nylon. Steri-Strip Telfa OpSite was placed at the neck. A silver impregnated dressing was placed at the catheter exit site. Then a Telfa OpSite was replaced over the previous catheter site keeping this occluded from the new catheter site. The catheter aspirated easily and was flushed with saline then 2 cc per channel of heparinized saline. Sponge and instrument and needle counts were reported the surgeon be correct. Blood loss minimal. Specimens none. Drains none. The patient was taken back to the intensive care unit ventilated intubated. Stat portable chest x-ray is pending. Guerrero Strauss M.D., F.A.C.S. Type of Anesthesia:: General Anesthesiologist: Schuyler Cole
[2018-06-04 17:10] LABS: Bedside Glucose 168 mg/dL (70-110)
--- NOTE | 2018-06-04 17:15 | RAD_ITS ---
STUDY: X-RAY CHEST REASON FOR EXAM: Female, 57 years old. Line placement. TECHNIQUE: Single AP portable view of the chest. COMPARISON: Same day, 9:48 AM.. FINDINGS: There is a new dialysis catheter through the right IJ terminating in the mid SVC. Stable endotracheal tube and left IJ line. No other significant changes since earlier today. Electronically Signed: Joe Lorenzo MD at 17:41 EST , Service support , RAD/CXR for Line Placement
[2018-06-04] MEDS: Albuterol 2.5 MG/3 ML VIAL.NEB. INHALATION (18:40)
[2018-06-04 22:16] LABS: Bedside Glucose 233 mg/dL (70-110)
[2018-06-05] VITALS (39 sets, daily range): BP systolic 94–130; BP diastolic 54–78; PULSE 75–94; RESP 13–22; TEMP 36.6–37.7; O2SAT 90–98
[2018-06-05] MEDS: Insulin Lispro 100 UNIT/ML INSULN.PEN SC ×3 (00:06→17:50)
[2018-06-05 00:16] LABS: Bedside Glucose 250 mg/dL (70-110)
[2018-06-05] MEDS: Propofol 10MG/Ml 1,000 MG/100 ML Bottle 8.292 MG CONT INF ×3 (06:16→20:11)
[2018-06-05] MEDS: Heparin Injection (Vial) 5,000 UNIT/ML VIAL 5000 UNIT SC ×3 (06:16→21:15)
[2018-06-05] MEDS: Nystatin Powder 15gm Bottle 1 APPLIC TOPICAL ×3 (06:18→21:15)
[2018-06-05 06:40] LABS: Bedside Glucose 209 mg/dL (70-110)
[2018-06-05] MEDS: Ipratropium/Albuterol Sulfate 3 ML AMPUL.NEB INHALATION ×3 (06:42→18:57)
[2018-06-05 06:58] LABS: Absolute Lymphocyte Count 1.37 X10^3/ul (0.83-4.51); Absolute Neutrophil Count 8.4 X10^3/uL (2.0-7.7); Basophil# 0.09 X10^3/uL; Basophil% 0.8 % (0-1); Eosinophil# 0.26 X10^3/uL; Eosinophils% 2.2 % (0-5); Hematocrit 29.7 % (37-47); Hemoglobin 9.8 g/dl (12.0-15.0); Lymphocyte # 1.37 X10^3/ul (4.0); Lymphocyte % 11.6 % (19-41); Mean Corpuscular Hgb 26.6 pg (27.0-32.0); Mean Corpuscular Volume 80.5 fL (81-99); Mean Platelet Vol. 8.7 fl (6.2-12.0); Monocyte# 1.38 X10^3/uL; Monocyte% 11.7 % (0-10); Neutrophil # 8.42 X10^3/uL (2.7-7.7); Neutrophil % 71.2 % (47-70); Platelet Count 395 K/mm3 (150-450); RBC Distribution Width CV 14.7 % (11.6-14.6); RBC Distribution Width SD 41.9 fl (35.1-43.9); Red Blood Count 3.69 M/mm3 (4.2-5.4); White Blood Count 11.8 K/mm3 (4.4-11.0)
[2018-06-05 06:59] LABS: POSITIVE COUNT YES; POSITIVE DIFFERENTIAL NO; POSITIVE MORPHOLOGY YES
[2018-06-05] MEDS: fentaNYL drip 100 ML 15 MCG IV ×2 (06:59→17:49)
[2018-06-05 07:04] LABS: Anion Gap 20 (5-15); BUN 92 mg/dL (7-18); BUN/Creat Ratio 13.3 RATIO (10-20); Calcium,Total 8.9 mg/dL (8.5-10.1); Chloride 93 mmol/L (98-107); Creatinine, Serum 6.93 mg/dL (0.55-1.02); EST Glomerular Filtration Rate 7 mL/min (>60); Est Glom Filt Rate - Afr Amer 8 mL/min (>60); Estimated Creatinine Clearance 8.38 ml/min; Glucose 219 mg/dL (74-106); Potassium 4.5 mmol/L (3.5-5.1); Sodium Level 134 mmol/L (136-145)
--- NOTE | 2018-06-05 07:07 | PN_ITS ---
Subjective: The patient was seen and examined at the bedside this morning. Events from the last 24 hours have been reviewed. The patient is currently afebrile, hemodynamically stable and maintaining appropriate oxygen saturations with an FiO2 requirement of 40%. The patient did undergo successful tunneled hemodialysis catheter placement yesterday evening. Emergency guardianship should hopefully be established today. Objective: The patient's most recent lab work, culture data and imaging studies have all been personally reviewed. Infectious workup was noted to be negative with the exception of a urine culture which was positive for Klebsiella pneumonia. Surface echocardiogram dated May 25 revealed evidence of stage I diastolic dysfunction with an ejection fraction of 55%. General: Cooperative, No apparent distress, - - Remains intubated, sedated and mechanically ventilated. HEENT: Atraumatic, PERRLA, Normocephalic Oral: No Gingival or Mucosal Lesions/ Ulcerations, - - Endotracheal and OG tubes remain in place Neck: Supple, No Nodes, Trachea Midline Lungs: No rhonchi, No wheeze, No rales, Diminished Cardiovascular: Regular rate, Regular Rhythm, Normal S1, Normal S2, No murmurs Abdomen: Bowel Sounds Present, Soft, Non Tender, Obese Extremities: No clubbing, No cyanosis, Edema Skin: - - No significant change from previous. Musculoskeletal: No Tenderness to Palpation of Joints or Extremities, No Muscle Wasting Lymphatic: No Cervical, Supraclavicular, or Inguinal Adenopathy Neurological: Neuro grossly intact Vital Signs Temp Pulse Resp BP Pulse Ox 37.4 C H 83 17 112/67 92 06/05/18 04:00 06/05/18 06:00 06/05/18 06:00 06/05/18 06:00 06/05/18 06:00 Oxygen Flow Rate (L/min) 50 Oxygen Delivery Method Mechanical Ventilator Weight: 305 lb 12.498 oz Body Mass Index (BMI) 49.7 Finger Stick Blood Glucose 150 Intake and Output for Last 24 Hours 06/03/18 06/04/18 06/05/18 23:59 23:59 23:59 Intake Total 2155 / 2155 2503 / 2503 1414 / 1414 Output Total 95 / 95 425 / 425 225 / 225 Balance 0 / 2060 2078 / 2078 1189 / 1189 Labs (Last 48 Hours) 06/03/18 06/03/18 06/03/18 06:40 11:37 17:07 WBC RBC Hgb Hct MCV MCH MCHC RDW RDW Differential Plt Count MPV Immature Gran % (Auto) Neut % (Auto) Lymph % (Auto) [place] % (Auto) Eos % (Auto) Baso % (Auto) Absolute Neuts (auto) Absolute Lymphs (auto) Total Counted Diff Path Review Sodium 136 Potassium 3.6 Chloride 96 L Carbon Dioxide 26.0 Anion Gap 14 BUN 48 H Creatinine 4.68 H Estim Creat Clear Calc 12.42 Est GFR (MDRD) Af Amer 12 L Est GFR (MDRD) Non-Af 10 L BUN/Creatinine Ratio 10.3 Glucose 230 H Calcium 8.7 Phosphorus 5.4 H Magnesium 2.6 POC Glucose 287 H 267 H 06/03/18 06/04/18 06/04/18 22:58 06:35 08:35 WBC 10.7 RBC 3.71 L Hgb 9.6 L Hct 29.5 L MCV 79.5 L MCH 25.9 L MCHC 32.5 RDW 14.5 RDW Differential 41.8 Plt Count 339 MPV 8.6 Immature Gran % (Auto) 2.600 H Neut % (Auto) 67.1 Lymph % (Auto) 14.1 L [place] % (Auto) 13.3 H Eos % (Auto) 2.2 Baso % (Auto) 0.7 Absolute Neuts (auto) 7.2 Absolute Lymphs (auto) 1.51 Total Counted Not Reportable Diff Path Review May foll Sodium Potassium Chloride Carbon Dioxide Anion Gap BUN Creatinine Estim Creat Clear Calc Est GFR (MDRD) Af Amer Est GFR (MDRD) Non-Af BUN/Creatinine Ratio Glucose Calcium Phosphorus Magnesium POC Glucose 242 H 269 H 06/04/18 06/04/18 06/04/18 08:35 11:21 17:03 WBC RBC Hgb Hct MCV MCH MCHC RDW RDW Differential Plt Count MPV Immature Gran % (Auto) Neut % (Auto) Lymph % (Auto) [place] % (Auto) Eos % (Auto) Baso % (Auto) Absolute Neuts (auto) Absolute Lymphs (auto) Total Counted Diff Path Review Sodium 135 L Potassium 4.3 Chloride 94 L Carbon Dioxide 23.0 Anion Gap 18 H BUN 76 H Creatinine 6.15 H Estim Creat Clear Calc 9.45 Est GFR (MDRD) Af Amer 9 L Est GFR (MDRD) Non-Af 7 L BUN/Creatinine Ratio 12.4 Glucose 263 H Calcium 8.8 Phosphorus 7.6 H Magnesium 2.9 H POC Glucose 240 H 168 H 06/04/18 06/05/18 06/05/18 22:00 00:04 06:03 WBC RBC Hgb Hct MCV MCH MCHC RDW RDW Differential Plt Count MPV Immature Gran % (Auto) Neut % (Auto) Lymph % (Auto) [place] % (Auto) Eos % (Auto) Baso % (Auto) Absolute Neuts (auto) Absolute Lymphs (auto) Total Counted Diff Path Review Sodium Potassium Chloride Carbon Dioxide Anion Gap BUN Creatinine Estim Creat Clear Calc Est GFR (MDRD) Af Amer Est GFR (MDRD) Non-Af BUN/Creatinine Ratio Glucose Calcium Phosphorus Magnesium POC Glucose 233 H 250 H 209 H 06/05/18 06/05/18 06:45 06:45 WBC 11.8 H RBC 3.69 L Hgb 9.8 L Hct 29.7 L MCV 80.5 L MCH 26.6 L MCHC 33.0 RDW 14.7 H RDW Differential 41.9 Plt Count 395 MPV 8.7 Immature Gran % (Auto) 2.500 H Neut % (Auto) 71.2 H Lymph % (Auto) 11.6 L [place] % (Auto) 11.7 H Eos % (Auto) 2.2 Baso % (Auto) 0.8 Absolute Neuts (auto) 8.4 H Absolute Lymphs (auto) 1.37 Total Counted Not Reportable Diff Path Review Sodium 134 L Potassium 4.5 Chloride 93 L Carbon Dioxide 21.0 Anion Gap 20 H BUN 92 H Creatinine 6.93 H Estim Creat Clear Calc 8.38 Est GFR (MDRD) Af Amer 8 L Est GFR (MDRD) Non-Af 7 L BUN/Creatinine Ratio 13.3 Phosphorus Clinical Impression(s) from Imaging Studies Chest X-Ray 05/23/18 15:15 IMPRESSION: Findings suggestive CHF with superimposed atelectasis and/or infiltrate in the right midlung. Electronically Signed: Royer Rowe MD at 15:56 EST , Service support , Chest X-Ray 05/24/18 10:30 IMPRESSION: Findings consistent with CHF. This appears worsening with areas of consolidation at the left lung base. Electronically Signed: Michael Braxton DO at 17:08 EST Tel [phone], Service support , KUB X-Ray 05/24/18 14:46 IMPRESSION: The tip of the orogastric tube is in the body of the stomach. Electronically Signed: Royer Rowe MD at 15:43 EST , Service support , Chest X-Ray 05/24/18 15:10 IMPRESSION: The tip of the endotracheal tube is at 6.3 cm proximal to the ehsan. Electronically Signed: Royer Rowe MD at 15:44 EST , Service support , Chest X-Ray 05/25/18 05:11 IMPRESSION: The tip of the endotracheal tube is at 2.4 sinus proximal to the ehsan. The remainder the examination is unchanged. Electronically Signed: Royer Rowe MD at 8:15 EST , Service support , Chest CT 05/25/18 09:38 IMPRESSION: Infiltrates in both lungs worse in the right upper lobe and both lower lobes. Electronically Signed: Royer Rowe MD at 11:32 EST , Service support , Chest X-Ray 05/26/18 10:28 IMPRESSION: Stable interval exam. Placement of right subclavian central venous catheter without evidence of pneumothorax Electronically Signed: Rocco Zepeda DO at 11:52 EST Tel , Service support , Chest X-Ray 05/28/18 05:55 IMPRESSION: Stable findings. Persistent bilateral pulmonary infiltrates, larger on the right. at 0514 Reported and signed by: West Saini MD Electronically Signed: West Saini, at 5:13 EST Tel , Service support , Chest X-Ray 05/28/18 15:06 IMPRESSION: All lines are in good position. Progressive bilateral infiltrations. Electronically Signed: Royer Rowe MD at 16:01 EST , Service support , Chest X-Ray 05/30/18 08:00 IMPRESSION: Stable examination. Electronically Signed: Royer Rowe MD at 13:52 EST , Service support , Chest X-Ray 06/04/18 08:44 IMPRESSION: All the support tubes are unchanged. Prior study, there has been improved aeration of both lungs as described. Electronically Signed: Royer Rowe MD at 13:50 EST , Service support , Chest X-Ray 06/04/18 17:15 Magnesium POC Glucose Medical Necessity - Tobacco Use Smoking Status: Never smoker Tobacco Use: Non-smoker Assessment/Plan All Active Problems Chest pain (Acute) Acute respiratory failure with hypoxia (Acute) PNA (pneumonia) (Acute) Acute kidney injury (Acute) RECOMMENDATIONS: 1. Continue hemodialysis with fluid removal per nephrology recommendations. 2. Continue attempts at weaning from mechanical ventilation. Wean FiO2 and PEEP as tolerated. 3. If the patient is unable to be weaned from the ventilator in the next 48 hours, will pursue tracheostomy and PEG tube placement. 4. Continue tube feeds as ordered. 5. Continue aerosol treatments. IMPRESSIONS: 1. Acute combined respiratory failure secondary to severe community-acquired pneumonia The patient has been on treatment for multifocal pneumonia, and although improving, continues to have a significant ventilator requirement. At this time, the patient's antibiotics will be continued to complete her treatment course. We will continue to wean her FiO2 and PEEP as tolerated. Given the patient's inability to be weaned from mechanical ventilation, she will be a candidate for both trach and PEG tube placement, if she is unable to be weaned from invasive mechanical ventilation in the next 48 hours. Attempts to establish emergency guardianship are currently underway. Continue attempts at volume removal with hemodialysis per nephrology recommendations. 2. Acute kidney injury Likely secondary to ATN, as the patient was initially diuresed on admission to the hospital and also developed a component of hypotension on arrival to the ICU. Nephrology is currently following. The patient has been responding to hemodialysis support. The patient's temporary hemodialysis catheter was removed and a tunneled catheter was subsequently placed on June 04. Recommend continuing dialysis and volume optimization per nephrology recommendations. 3. Indeterminate troponin/acute on chronic diastolic heart failure Echocardiogram revealed no wall motion abnormalities. The patient undoubtedly needs further volume removal. Once the patient's issues with her dialysis catheter have resolved, fluid removal with HD will be continued per nephrology recommendations. 4. Morbid obesity/diabetes mellitus/anxiety/depression/PTSD Complicates care, management, recovery and prognosis. Continue Accu-Cheks and sliding scale insulin coverage. Tube feeds will be continued. TIME: 40 minutes of critical care time, independent of procedures, was spent addressing the patient's acute combined respiratory failure, severe community acquired pneumonia, acute kidney injury, diastolic heart failure with exacerbation, review of all data and collaboration with the care team. ([id number]) Code Visit 9xxxx: [id number] Critical care first hour
--- NOTE | 2018-06-05 07:12 | PCM.PN.SRG ---
Patient Problems: Active and Suspected Problems Chest pain (Acute) Acute respiratory failure with hypoxia (Acute) PNA (pneumonia) (Acute) Acute kidney injury (Acute) Subjective: Patient evaluated resting comfortably in bed. She is intubated. She does not appear to have any pain at the chest catheter site. She is scheduled for dialysis today. - Physical Exam General: Cooperative Neck: - - Right tunneled chest catheter- dressing intact. No drainage or bleeding noted. Vital Signs Temp Pulse Resp BP Pulse Ox 99.3 F H 83 17 112/67 92 06/05/18 04:00 06/05/18 06:00 06/05/18 06:00 06/05/18 06:00 06/05/18 06:00 Oxygen Flow Rate (L/min) 50 Oxygen Delivery Method Mechanical Ventilator Weight: 305 lb 12.498 oz Body Mass Index (BMI) 49.7 Finger Stick Blood Glucose 150 Intake and Output for Last 24 Hours 06/03/18 06/04/18 06/05/18 23:59 23:59 23:59 Intake Total 2155 / 2155 2503 / 2503 1414 / 1414 Output Total 95 / 95 425 / 425 225 / 225 Balance 2059 / 2059 2078 / 2077 1189 / 1189 Laboratory Tests Past 24 Hrs 06/04/18 06/04/18 06/05/18 08:35 08:35 06:45 WBC 10.7 11.8 H RBC 3.71 L 3.69 L Hgb 9.6 L 9.8 L Hct 29.5 L 29.7 L MCV 79.5 L 80.5 L MCH 25.9 L 26.6 L MCHC 32.5 33.0 RDW 14.5 14.7 H RDW Differential 41.8 41.9 Plt Count 339 395 MPV 8.6 8.7 Immature Gran % (Auto) 2.600 H 2.500 H Neut % (Auto) 67.1 71.2 H Lymph % (Auto) 14.1 L 11.6 L [place] % (Auto) 13.3 H 11.7 H Eos % (Auto) 2.2 2.2 Baso % (Auto) 0.7 0.8 Absolute Neuts (auto) 7.2 8.4 H Absolute Lymphs (auto) 1.51 1.37 Total Counted Not Reportable Not Reportable Diff Path Review May foll Sodium 135 L Potassium 4.3 Chloride 94 L Carbon Dioxide 23.0 Anion Gap 18 H BUN 76 H Creatinine 6.15 H Estim Creat Clear Calc 9.45 Est GFR (MDRD) Af Amer 9 L Est GFR (MDRD) Non-Af 7 L BUN/Creatinine Ratio 12.4 Glucose 263 H Calcium 8.8 Phosphorus 7.6 H Magnesium 2.9 H 06/05/18 06:45 WBC RBC Hgb Hct MCV MCH MCHC RDW RDW Differential Plt Count MPV Immature Gran % (Auto) Neut % (Auto) Lymph % (Auto) [place] % (Auto) Eos % (Auto) Baso % (Auto) Absolute Neuts (auto) Absolute Lymphs (auto) Total Counted Diff Path Review Sodium 134 L Potassium 4.5 Chloride 93 L Carbon Dioxide 21.0 Anion Gap 20 H BUN 92 H Creatinine 6.93 H Estim Creat Clear Calc 8.38 Est GFR (MDRD) Af Amer 8 L Est GFR (MDRD) Non-Af 7 L BUN/Creatinine Ratio 13.3 Glucose 219 H Calcium 8.9 Phosphorus Magnesium POC Glucose 06/05/18 06/05/18 06/04/18 06:03 00:04 22:00 POC Glucose 209 H 250 H 233 H 06/04/18 06/04/18 17:03 11:21 POC Glucose 168 H 240 H Medical Necessity - Tobacco Use Smoking Status: Never smoker Tobacco Use: Non-smoker Assessment/Plan All Active Problems Chest pain (Acute) Acute respiratory failure with hypoxia (Acute) PNA (pneumonia) (Acute) Acute kidney injury (Acute) I am following this patient in conjunction with Dr. Strauss. S/p right tunneled dialysis chest catheters. In need of a PEG tube Dr. Luke will plan to perform an EGD with PEG tube placement on August use dialysis catheters Patient's atomic spectroscopist is obtaining legal consent of the patient today in court Code Visit Inpatient E&M: 31591 Subs Hosp L1 - No charge/post-op
--- NOTE | 2018-06-05 09:44 | PCM.PN.HOSP ---
Patient Problems: Active and Suspected Problems Chest pain (Acute) Acute respiratory failure with hypoxia (Acute) PNA (pneumonia) (Acute) Acute kidney injury (Acute) Subjective: Patient seen and examined. She remains intubated and sedated. She had a tunneled dialysis catheter placed yesterday for dialysis. He will lower his current records today for guardianship. At the mobile sales assistant receives guardianship, plan will be for elective tracheostomy and PEG tube placement. Patient spontaneously open her eyes when called but is not able to communicate. Unable to do review of systems. Labs and vitals reviewed. Vitals/I&O's: Vital Signs Temp Pulse Resp BP Pulse Ox 99 F 84 18 111/67 94 06/05/18 08:00 06/05/18 09:00 06/05/18 09:00 06/05/18 09:00 06/05/18 09:00 Oxygen Flow Rate (L/min) 50 Oxygen Delivery Method Mechanical Ventilator Weight: 305 lb 12.498 oz Body Mass Index (BMI) 49.7 Finger Stick Blood Glucose 150 Intake and Output for Last 24 Hours 06/03/18 06/04/18 06/05/18 23:59 23:59 23:59 Intake Total 2155 / 2155 2503 / 2503 1514 / 1514 Output Total 95 / 95 425 / 425 225 / 225 Balance 2059 / 2059 2077 / 2077 1289 / 1289 General: Alert, - - intubated, sedated. Lethargic HEENT: Atraumatic, PERRLA, EOMI, Normocephalic Oral: Dry Mucosa Neck: Supple, No JVD, Negative Carotid Bruits Lungs: - - decreased breath sounds bibasally. No wheezes or crackles. Cardiovascular: Regular rate, Regular Rhythm, Normal S1, Normal S2, No murmurs Abdomen: Bowel Sounds Present, Soft, Non Tender, Non-Distended, No Hepato-splenomegaly Extremities: No clubbing, No cyanosis, No edema, Capillary Refill Less than 3 Seconds Skin: No rashes, No breakdown Musculoskeletal: No Tenderness to Palpation of Joints or Extremities Lymphatic: No Cervical, Supraclavicular, or Inguinal Adenopathy Neurological: Cranial nerves II-XII grossly intact, Neuro grossly intact Psych/Mental Status: - - intubated, sedated. RASS score is 0 Laboratory Results 06/04/18 08:35: Diff [place] [facility] [place] 11:21: POC Glucose 240 H 06/04/18 17:03: POC Glucose 168 H 06/04/18 22:00: POC Glucose 233 H 06/05/18 00:04: POC Glucose 250 H 06/05/18 06:03: POC Glucose 209 H 06/05/18 06:45: WBC 11.8 H, RBC 3.69 L, Hgb 9.8 L, Hct 29.7 L, MCV 80.5 L, MCH 26.6 L, MCHC 33.0, RDW 14.7 H, RDW Differential 41.9, Plt Count 395, MPV 8.7, Immature Gran % (Auto) 2.500 H, Neut % (Auto) 71.2 H, Lymph % (Auto) 11.6 L, Atkinson % (Auto) 11.7 H, Eos % (Auto) 2.2, Baso % (Auto) 0.8, Absolute Neuts (auto) 8.4 H, Absolute Lymphs (auto) 1.37, Total Counted Not Reportable, Diff Path Review [place] [facility] [place] 06:45: Sodium 134 L, Potassium 4.5, Chloride 93 L, Carbon Dioxide 21.0, Anion Gap 20 H, BUN 92 H, Creatinine 6.93 H, Estim Creat Clear Calc 8.38, Est GFR (MDRD) Af Amer 8 L, Est GFR (MDRD) Non-Af 7 L, BUN/Creatinine Ratio 13.3, Glucose 219 H, Calcium 8.9 Current Medications Acetaminophen (Tylenol Liquid) 650 mg GT Q4H PRN PRN PRN Reason: T > 100.5 F Last Admin: 05/25/18 01:27 Dose: 650 mg Albuterol Sulfate (Ventolin Aerosols) 2.5 mg INHALATION Q2H PRN PRN PRN Reason: SOB &/OR WHEEZING Last Admin: 06/04/18 18:40 Dose: 2.5 mg Albuterol/Ipratropium (Duoneb) 3 ml INHALATION Q4HWA.RT RUBI Last Admin: 06/05/18 06:42 Dose: 3 ml Calamine/Phenol (Calmoseptine Ointment) 1 applic TOPICAL BID RU[facility]; Protocol Last Admin: 06/04/18 22:03 Dose: 1 applicatio Chlorhexidine Gluconate () 1 each TOPICAL DAILY [facility] Last Admin: 06/04/18 06:41 Dose: 1 each Chlorhexidine Gluconate () 15 ml PO BID [facility] Last Admin: 06/04/18 23:36 Dose: 15 ml Dextrose (D50w Syringe) 0 gm IV X1 PRN; Protocol PRN Reason: Hypoglycemia Famotidine (Pepcid) 20 mg GT DAILY [facility] Last Admin: 06/04/18 09:58 Dose: 20 mg Glucagon () 1 mg IM .X1 PRN PRN Reason: Hypoglycemia Heparin Sodium (Porcine) (Heparin Na) 5,000 unit SC Q8 [facility] Last Admin: 06/05/18 06:16 Dose: 5,000 unit Heparin Sodium (Porcine) () 2,500 units IV UD PRN PRN Reason: HEPARIN FLUSH Sodium Chloride () 250 mls @ 15 mls/hr IV .[id number] PRN PRN Reason: SALINE FLUSH Last Admin: 06/03/18 21:07 Dose: 15 mls/hr Sodium Chloride () 250 mls @ 15 mls/hr IV .[id number] PRN PRN Reason: SALINE FLUSH Sodium Chloride () 250 mls @ 15 mls/hr IV .[id number] PRN PRN Reason: SALINE FLUSH Sodium Chloride () 250 mls @ 15 mls/hr IV .[id number] PRN PRN Reason: SALINE FLUSH Fentanyl () 100 mls @ 15 mls/hr IV .Q20H [facility] Last Admin: 06/05/18 06:59 Dose: 15 mls/hr Enteral Nutritional Formula (Vital Af 1.2 Glenn Liquid) 1,000 mls @ 60 mls/hr GT .[id number] [facility] Last Admin: 06/05/18 08:43 Dose: Not Given Levofloxacin (Levaquin Iv) 500 mg in 100 mls @ 100 mls/hr IV Q48 [facility] Last Admin: 06/03/18 09:54 Dose: 100 mls/hr Propofol (Diprivan) 1,000 mg in 100 mls @ 8.292 mls/hr CONT INF .Q12H [facility] Last Admin: 06/05/18 06:16 Dose: 8.292 mls/hr Insulin Glargine (Lantus (Bkc)) 60 units SC BID [facility] Last Admin: 06/04/18 22:03 Dose: 60 u Insulin Human Lispro (Humalog Kwikpen (Bkc)) 0 unit SC Q6 [facility]; Protocol Last Admin: 06/05/18 06:17 Dose: 8 u Nystatin (Mycostatin Powder) 1 applic TOPICAL TID [facility]; Protocol Last Admin: 06/05/18 06:18 Dose: 1 applic Polyethylene Glycol (Miralax) 17 gm GT DAILY [facility] Last Admin: 06/04/18 09:06 Dose: Not Given Risperidone (Risperdal) 2 mg GT BID [facility] Last Admin: 06/04/18 22:04 Dose: 2 mg Risperidone (Risperdal) 0.5 mg GT BID [facility] Last Admin: 06/04/18 22:04 Dose: 0.5 mg Sodium Chloride () 5 - 15 ml IV UD PRN PRN Reason: SALINE FLUSH Last Admin: 06/03/18 05:37 Dose: 15 ml Sodium Chloride () 10 ml IV UD PRN PRN Reason: Dialysis Catheter Flush Medical Necessity - Tobacco Use Smoking Status: Never smoker Tobacco Use: Non-smoker Assessment/Plan All Active Problems Chest pain (Acute) Acute respiratory failure with hypoxia (Acute) PNA (pneumonia) (Acute) Acute kidney injury (Acute) 1. Acute hypoxic and hypercapnic respiratory failure due to community acquired pneumonia remains intubated and sedated. Unable to wean off ventilator as she has failed spontaneous breathing trials Blood cultures showed no growth and urine grew Klebsiella pneumonia. Is on IV Levaquin. Plan is for patient to have tracheostomy and PEG tube as she has been on mechanical ventilation for 13 days today. Awaiting guardianship by trust and estates attorney. Coding Director going to court today for guardianship. on propofol and fentanyl for sedation 2. Community-acquired pneumonia: As under 1. Sputum culture showed mixed normal respiratory addison with no Selin. 3. Acute renal failure: Nephrology on board. was getting dialysis today at time of review. had tunnelled dialysis catheter placed yesterday for usp dialysis will be needing usp dialysis now 4. Acute on chronic diastolic heart failure 2D echo showed normal left ventricular size and function with EF of 55% in stage I diastolic dysfunction. Requiring dialysis for fluid removal. 5. Type 2 diabetes mellitus: On Lantus and insulin sliding scale. Currently on tube feeding. Blood sugars remain in the 200s. 6. Depression and anxiety:currently on risperdal to help with agitation. Nutrition: on tube feeding. DVT prophylaxis: Heparin GI prophylaxis: famotidine Code Visit Inpatient E&M: 40596 Subs Hosp L3
[2018-06-05] MEDS: CHLORHEXIDINE GLUC 2% CLOTH 1 EACH TOWELETTE TOPICAL (09:46)
[2018-06-05] MEDS: Chlorhexidine 15 ML PO ×2 (09:46→21:15)
[2018-06-05] MEDS: Menthol/Lanolin/Calamine/Znox 113 GM Tube 1 APPLIC TOPICAL ×2 (09:47→21:15)
[2018-06-05] MEDS: RisperiDONE 0.5 MG Tablet GT ×2 (09:48→21:16)
[2018-06-05] MEDS: RisperiDONE 2 MG Tablet GT ×2 (09:48→21:16)
[2018-06-05] MEDS: 0.9% NaCl IVPB Med Flush (250 mL) 15 ML IV (09:48)
[2018-06-05] MEDS: Famotidine 20 MG Tablet GT (09:48)
--- NOTE | 2018-06-05 09:50 | PN_ITS ---
Patient Problems: Active and Suspected Problems Chest pain (Acute) Acute respiratory failure with hypoxia (Acute) PNA (pneumonia) (Acute) Acute kidney injury (Acute) Subjective: Patient seen and examined. She remains intubated and sedated. She had a tunneled dialysis catheter placed yesterday for dialysis. He will lower his cur rent records today for guardianship. At the language translator receives guardianship, plan will be for elective tracheostomy and PEG tube placement. Patient spontaneously open her eyes when called but is not able to communicate. Unable to do review of systems. Labs and vitals reviewed. Vitals/I&O's: Vital Signs Temp Pulse Resp BP Pulse Ox 99 F 84 18 111/67 94 06/05/18 08:00 06/05/18 09:00 06/05/18 09:00 06/05/18 09:00 06/05/18 09:00 Oxygen Flow Rate (L/min) 50 Oxygen Delivery Method Mechanical Ventilator Weight: 305 lb 12.498 oz Body Mass Index (BMI) 49.7 Finger Stick Blood Glucose 150 Intake and Output for Last 24 Hours 06/03/18 06/04/18 06/05/18 23:59 23:59 23:59 Intake Total 2155 / 2155 2503 / 2503 1514 / 1514 Output Total 95 / 95 425 / 425 225 / 225 Balance 2059 / 2059 2077 / 2077 1289 / 1289 General: Alert, - - intubated, sedated. Lethargic HEENT: Atraumatic, PERRLA, EOMI, Normocephalic Oral: Dry Mucosa Neck: Supple, No JVD, Negative Carotid Bruits Lungs: - - decreased breath sounds bibasally. No wheezes or crackles. Cardiovascular: Regular rate, Regular Rhythm, Normal S1, Normal S2, No murmurs Abdomen: Bowel Sounds Present, Soft, Non Tender, Non-Distended, No Hepato- splenomegaly Extremities: No clubbing, No cyanosis, No edema, Capillary Refill Less than 3 Seconds Skin: No rashes, No breakdown Musculoskeletal: No Tenderness to Palpation of Joints or Extremities Lymphatic: No Cervical, Supraclavicular, or Inguinal Adenopathy Neurological: Cranial nerves II-XII grossly intact, Neuro grossly intact Psych/Mental Status: - - intubated, sedated. RASS score is 0 Laboratory Results 06/04/18 08:35: Diff Path Review August [facility] 06/04/18 11:21: POC Glucose 240 H 06/04/18 17:03: POC Glucose 168 H 06/04/18 22:00: POC Glucose 233 H 06/05/18 00:04: POC Glucose 250 H 06/05/18 06:03: POC Glucose 209 H 06/05/18 06:45: WBC 11.8 H, RBC 3.69 L, Hgb 9.8 L, Hct 29.7 L, MCV 80.5 L, MCH 26.6 L, MCHC 33.0, RDW 14.7 H, RDW Differential 41.9, Plt Count 395, MPV 8.7, Immature Gran % (Auto) 2.500 H, Neut % (Auto) 71.2 H, Lymph % (Auto) 11.6 L, Atkinson % (Auto) 11.7 H, Eos % (Auto) 2.2, Baso % (Auto) 0.8, Absolute Neuts (auto) 8.4 H, Absolute Lymphs (auto) 1.37, Total Counted Not Reportable, Diff Path Review August [facility] 06/05/18 06:45: Sodium 134 L, Potassium 4.5, Chloride 93 L, Carbon Dioxide 21.0, Anion Gap 20 H, BUN 92 H, Creatinine 6.93 H, Estim Creat Clear Calc 8.38, Est GFR (MDRD) Af Amer 8 L, Est GFR (MDRD) Non-Af 7 L, BUN/Creatinine Ratio 13.3, Glucose 219 H, Calcium 8.9 Current Medications Acetaminophen (Tylenol Liquid) 650 mg GT Q4H PRN PRN PRN Reason: T > 100.5 F Last Admin: 05/25/18 01:27 Dose: 650 mg Albuterol Sulfate (Ventolin Aerosols) 2.5 mg INHALATION Q2H PRN PRN PRN Reason: SOB &/OR WHEEZING Last Admin: 06/04/18 18:40 Dose: 2.5 mg Albuterol/Ipratropium (Duoneb) 3 ml INHALATION Q4HWA.RT RUBI Last Admin: 06/05/18 06:42 Dose: 3 ml Calamine/Phenol (Calmoseptine Ointment) 1 applic TOPICAL BID [facility]; Protocol Last Admin: 06/04/18 22:03 Dose: 1 applicatio Chlorhexidine Gluconate () 1 each TOPICAL DAILY [facility] Last Admin: 06/04/18 06:41 Dose: 1 each Chlorhexidine Gluconate () 15 ml PO BID [facility] Last Admin: 06/04/18 23:36 Dose: 15 ml Dextrose (D50w Syringe) 0 gm IV X1 PRN; Protocol PRN Reason: Hypoglycemia Famotidine (Pepcid) 20 mg GT DAILY [facility] Last Admin: 06/04/18 09:58 Dose: 20 mg Glucagon () 1 mg IM .X1 PRN PRN Reason: Hypoglycemia Heparin Sodium (Porcine) (Heparin Na) 5,000 unit SC Q8 [facility] Last Admin: 06/05/18 06:16 Dose: 5,000 unit Heparin Sodium (Porcine) () 2,500 units IV UD PRN PRN Reason: HEPARIN FLUSH Sodium Chloride () 250 mls @ 15 mls/hr IV .[id number] PRN PRN Reason: SALINE FLUSH Last Admin: 06/03/18 21:07 Dose: 15 mls/hr Sodium Chloride () 250 mls @ 15 mls/hr IV .[id number] PRN PRN Reason: SALINE FLUSH Sodium Chloride () 250 mls @ 15 mls/hr IV .[id number] PRN PRN Reason: SALINE FLUSH Sodium Chloride () 250 mls @ 15 mls/hr IV .[id number] PRN PRN Reason: SALINE FLUSH Fentanyl () 100 mls @ 15 mls/hr IV .Q20H [facility] Last Admin: 06/05/18 06:59 Dose: 15 mls/hr Enteral Nutritional Formula (Vital Af 1.2 Glenn Liquid) 1,000 mls @ 60 mls/hr GT .[id number] [facility] Last Admin: 06/05/18 08:43 Dose: Not Given Levofloxacin (Levaquin Iv) 500 mg in 100 mls @ 100 mls/hr IV Q48 [facility] Last Admin: 06/03/18 09:54 Dose: 100 mls/hr Propofol (Diprivan) 1,000 mg in 100 mls @ 8.292 mls/hr CONT INF .Q12H [facility] Last Admin: 06/05/18 06:16 Dose: 8.292 mls/hr Insulin Glargine (Lantus (Bkc)) 60 units SC BID [facility] Last Admin: 06/04/18 22:03 Dose: 60 u Insulin Human Lispro (Humalog Kwikpen (Bkc)) 0 unit SC Q6 [facility]; Protocol Last Admin: 06/05/18 06:17 Dose: 8 u Nystatin (Mycostatin Powder) 1 applic TOPICAL TID [facility]; Protocol Last Admin: 06/05/18 06:18 Dose: 1 applic Polyethylene Glycol (Miralax) 17 gm GT DAILY [facility] Last Admin: 06/04/18 09:06 Dose: Not Given Risperidone (Risperdal) 2 mg GT BID [facility] Last Admin: 06/04/18 22:04 Dose: 2 mg Risperidone (Risperdal) 0.5 mg GT BID [facility] Last Admin: 06/04/18 22:04 Dose: 0.5 mg Sodium Chloride () 5 - 15 ml IV UD PRN PRN Reason: SALINE FLUSH Last Admin: 06/03/18 05:37 Dose: 15 ml Sodium Chloride () 10 ml IV UD PRN PRN Reason: Dialysis Catheter Flush Medical Necessity - Tobacco Use Smoking Status: Never smoker Tobacco Use: Non-smoker Assessment/Plan All Active Problems Chest pain (Acute) Acute respiratory failure with hypoxia (Acute) PNA (pneumonia) (Acute) Acute kidney injury (Acute) 1. Acute hypoxic and hypercapnic respiratory failure due to community acquired pneumonia * remains intubated and sedated. Unable to wean off ventilator as she has failed spontaneous breathing trials * Blood cultures showed no growth and urine grew Klebsiella pneumonia. * Is on IV Levaquin. * Plan is for patient to have tracheostomy and PEG tube as she has been on mechanical ventilation for 13 days today. * Awaiting guardianship by commonwealth attorney. Anesthesiology Medical Doctor going to court today for guardianship. * on propofol and fentanyl for sedation * 2. Community-acquired pneumonia: As under 1. Sputum culture showed mixed normal respiratory addison with no Selin. 3. Acute renal failure: * Nephrology on board. * was getting dialysis today at time of review. * had tunnelled dialysis catheter placed yesterday for senior care dialysis * will be needing senior care dialysis now * 4. Acute on chronic diastolic heart failure * 2D echo showed normal left ventricular size and function with EF of 55% in stage I diastolic dysfunction. * Requiring dialysis for fluid removal. * 5. Type 2 diabetes mellitus: On Lantus and insulin sliding scale. Currently on tube feeding. Blood sugars remain in the 200s. 6. Depression and anxiety:currently on risperdal to help with agitation. Nutrition: on tube feeding. DVT prophylaxis: Heparin GI prophylaxis: famotidine Code Visit Inpatient E&M: [id number] [facility] Hosp L3
[2018-06-05] MEDS: Vital AF 1.2 Cal Liquid 1,000 ML 60 ML GT (09:54)
--- NOTE | 2018-06-05 12:40 | DIALYSIS ---
Hemodialysis x 4 hours with 2K bath; Tolerated well. Removed = -4000; RIJ CVC capped & locked with heparin per lumen fill volume. Report given.
[2018-06-05 12:41] LABS: Bedside Glucose 141 mg/dL (70-110)
[2018-06-05] MEDS: levoFLOXacin IV 500 MG/100 ML BAG 100 MG IV (13:07)
--- NOTE | 2018-06-05 14:56 | PN.RENAL_ITS ---
Patient Problems: Active and Suspected Problems Chest pain (Acute) Acute respiratory failure with hypoxia (Acute) PNA (pneumonia) (Acute) Acute kidney injury (Acute) Subjective: no new events tunneled line placed last night HD today - Physical Exam HEENT: Atraumatic, PERRLA, EOMI, Normocephalic Neck: Supple, No JVD, Negative Carotid Bruits Lungs: Clear to auscultation, Normal air movement Cardiovascular: Regular rate, No murmurs Abdomen: Bowel Sounds Present, Soft, Non Tender Extremities: No edema, Capillary Refill Less than 3 Seconds Skin: No rashes, No breakdown Musculoskeletal: No Tenderness to Palpation of Joints or Extremities Vital Signs Temp Pulse Resp BP Pulse Ox 98.7 F 85 19 H 113/64 93 06/05/18 12:20 06/05/18 14:00 06/05/18 14:00 06/05/18 14:00 06/05/18 14:00 Oxygen Flow Rate (L/min) 50 Oxygen Delivery Method Mechanical Ventilator Weight: 138.7 kg Body Mass Index (BMI) 49.7 Finger Stick Blood Glucose 150 Intake and Output for Last 24 Hours 06/03/18 06/04/18 06/05/18 23:59 23:59 23:59 Intake Total 2155 / 2155 2503 / 2503 2069 Output Total 95 / 95 425 / 425 8300 / 8300 Balance 2059 -6230 / -6230 Laboratory Tests Past 24 Hrs 06/05/18 06/05/18 06:45 06:45 WBC 11.8 H RBC 3.69 L Hgb 9.8 L Hct 29.7 L MCV 80.5 L MCH 26.6 L MCHC 33.0 RDW 14.7 H RDW Differential 41.9 Plt Count 395 MPV 8.7 Immature Gran % (Auto) 2.500 H Neut % (Auto) 71.2 H Lymph % (Auto) 11.6 L [place] % (Auto) 11.7 H Eos % (Auto) 2.2 Baso % (Auto) 0.8 Absolute Neuts (auto) 8.4 H Absolute Lymphs (auto) 1.37 Total Counted Not Reportable Diff Path Review May foll Sodium 134 L Potassium 4.5 Chloride 93 L Carbon Dioxide 21.0 Anion Gap 20 H BUN 92 H Creatinine 6.93 H Estim Creat Clear Calc 8.38 Est GFR (MDRD) Af Amer 8 L Est GFR (MDRD) Non-Af 7 L BUN/Creatinine Ratio 13.3 Glucose 219 H Calcium 8.9 POC Glucose 06/05/18 06/05/18 06/05/18 12:34 06:03 00:04 POC Glucose 141 H 209 H 250 H 06/04/18 06/04/18 22:00 17:03 POC Glucose 233 H 168 H Medical Necessity - Tobacco Use Smoking Status: Never smoker Tobacco Use: Non-smoker Assessment/Plan All Active Problems Chest pain (Acute) Acute respiratory failure with hypoxia (Acute) PNA (pneumonia) (Acute) Acute kidney injury (Acute) 1-Acute kidney injury. Normal creatinine 2014. Patient presented with creatinine 1.07 mg/dL. UA showed 100 protein and 100 blood but no RBCs or white cell count. Acute kidney injury is from ATN Another possibility with this UA finding is pam raza nephritis.ELANA/ANCA are negative. C3/C4 are within normal limits. Hepatitis panel is negative No recovery of kidney function. Remains anuric Patient is currently hemodialysis dependent for metabolic and volume support. Dialysis started on May 28. 2-Acute respiratory failure from bilateral pneumonia. Ventilator support as per the promotions director. 0-[id number]-calqxmqt pneumonia. On levaquin which is appropriately dosed for HD patient. Plan dialysis today. UF 3-4 L as tolerated. HD likely tomorrow as well access is IJ TDC
--- NOTE | 2018-06-05 15:40 | CASEMGMT ---
Wire Products Inspector Hunter Rice was going to submit request for guardianship to courts today. Apoorva BRAVO MSW
[2018-06-05 17:51] LABS: Bedside Glucose 159 mg/dL (70-110)
[2018-06-05 21:46] LABS: Bedside Glucose 131 mg/dL (70-110)
[2018-06-06] VITALS (41 sets, daily range): BP systolic 94–126; BP diastolic 51–75; PULSE 72–103; RESP 13–35; TEMP 36.9–37.2; O2SAT 87–96
[2018-06-06 00:06] LABS: Bedside Glucose 126 mg/dL (70-110)
[2018-06-06 04:13] LABS: Anion Gap 12 (5-15); BUN 55 mg/dL (7-18); BUN/Creat Ratio 12.2 RATIO (10-20); Calcium,Total 8.8 mg/dL (8.5-10.1); Chloride 98 mmol/L (98-107); Creatinine, Serum 4.49 mg/dL (0.55-1.02); EST Glomerular Filtration Rate 11 mL/min (>60); Est Glom Filt Rate - Afr Amer 13 mL/min (>60); Estimated Creatinine Clearance 12.94 ml/min; Glucose 188 mg/dL (74-106); Potassium 4.1 mmol/L (3.5-5.1); Sodium Level 137 mmol/L (136-145)
[2018-06-06 04:16] LABS: Absolute Lymphocyte Count 1.29 X10^3/ul (0.83-4.51); Absolute Neutrophil Count 8.5 X10^3/uL (2.0-7.7); Basophil# 0.09 X10^3/uL; Basophil% 0.8 % (0-1); Eosinophil# 0.22 X10^3/uL; Eosinophils% 1.9 % (0-5); Hematocrit 30.6 % (37-47); Hemoglobin 9.6 g/dl (12.0-15.0); Lymphocyte # 1.29 X10^3/ul (4.0); Lymphocyte % 11.1 % (19-41); Mean Corp Hgb Conc 31.4 g/gl (32-36); Mean Corpuscular Hgb 25.7 pg (27.0-32.0); Mean Corpuscular Volume 81.8 fL (81-99); Mean Platelet Vol. 8.7 fl (6.2-12.0); Monocyte# 1.33 X10^3/uL; Monocyte% 11.5 % (0-10); Neutrophil # 8.48 X10^3/uL (2.7-7.7); POSITIVE COUNT NO; POSITIVE DIFFERENTIAL NO; POSITIVE MORPHOLOGY NO; Platelet Count 305 K/mm3 (150-450); RBC Distribution Width CV 14.8 % (11.6-14.6); RBC Distribution Width SD 44.5 fl (35.1-43.9); Red Blood Count 3.74 M/mm3 (4.2-5.4); White Blood Count 11.6 K/mm3 (4.4-11.0)
[2018-06-06] MEDS: Insulin Lispro 100 UNIT/ML INSULN.PEN SC ×2 (05:07→23:17)
[2018-06-06] MEDS: 0.9% NaCl Peripheral Flush Adult/Peds IV (05:07)
[2018-06-06] MEDS: CHLORHEXIDINE GLUC 2% CLOTH 1 EACH TOWELETTE TOPICAL (05:07)
[2018-06-06] MEDS: Heparin Injection (Vial) 5,000 UNIT/ML VIAL 5000 UNIT SC (05:07)
[2018-06-06] MEDS: Nystatin Powder 15gm Bottle 1 APPLIC TOPICAL ×3 (05:08→21:06)
[2018-06-06 05:21] LABS: Bedside Glucose 173 mg/dL (70-110)
--- NOTE | 2018-06-06 06:32 | PN_ITS ---
Subjective: The patient was seen and examined at the bedside this morning. Events from the last 24 hours have been reviewed. The patient is currently afebrile, hemodynamically stable and maintaining appropriate oxygen saturations with an FiO2 requirement of 40%. The patient tolerated 4 L of volume removal yesterday with hemodialysis. Her PEEP was able to be weaned, as well as her FiO2. She is currently on a spontaneous breathing trial. Objective: The patient's most recent lab work, culture data and imaging studies have all been personally reviewed. Infectious workup was noted to be negative with the exception of a urine culture which was positive for Klebsiella pneumonia. Surface echocardiogram dated May 25 revealed evidence of stage I diastolic dysfunction with an ejection fraction of 55%. General: Alert, No apparent distress, - - Currently tolerating spontaneous mode of mechanical ventilation. HEENT: Atraumatic, PERRLA, Normocephalic Oral: No Gingival or Mucosal Lesions/ Ulcerations, - - Endotracheal and OG tubes remain in place. Neck: Supple, No Nodes, Trachea Midline Lungs: No rhonchi, No wheeze, No rales, Diminished Cardiovascular: Regular rate, Regular Rhythm, Normal S1, Normal S2, No murmurs Abdomen: Bowel Sounds Present, Soft, Non Tender, Obese Extremities: No clubbing, No cyanosis, Edema Skin: - - No significant change from previous. Musculoskeletal: No Tenderness to Palpation of Joints or Extremities, No Muscle Wasting Lymphatic: No Cervical, Supraclavicular, or Inguinal Adenopathy Neurological: - - No focal deficits. CAM+. Currently off sedation. The patient's eyes are open and she will track to movement. She is not currently following simple commands. Vital Signs Temp Pulse Resp BP Pulse Ox 37.2 C 97 19 H 118/63 93 06/06/18 04:00 06/06/18 06:00 06/06/18 06:00 06/06/18 06:00 06/06/18 06:00 Oxygen Flow Rate (L/min) 50 Oxygen Delivery Method Mechanical Ventilator Weight: 303 lb 9.224 oz Body Mass Index (BMI) 49.7 Finger Stick Blood Glucose 150 Intake and Output for Last 24 Hours 06/04/18 06/05/18 06/06/18 23:59 23:59 23:59 Intake Total 2503 / 2503 3377.4 / 3377.4 485.5 / 485.5 Output Total 425 / 425 8650 / 8650 125 / 125 Balance 2078 / 2078 -5272.6 / -5272.6 360.5 / 360.5 Labs (Last 48 Hours) 06/04/18 06/04/18 06/04/18 06:35 08:35 08:35 WBC 10.7 RBC 3.71 L Hgb 9.6 L Hct 29.5 L MCV 79.5 L MCH 25.9 L MCHC 32.5 RDW 14.5 RDW Differential 41.8 Plt Count 339 MPV 8.6 Immature Gran % (Auto) 2.600 H Neut % (Auto) 67.1 Lymph % (Auto) 14.1 L [place] % (Auto) 13.3 H Eos % (Auto) 2.2 Baso % (Auto) 0.7 Absolute Neuts (auto) 7.2 Absolute Lymphs (auto) 1.51 Total Counted Not Reportable Diff Path Review August Sodium 135 L Potassium 4.3 Chloride 94 L Carbon Dioxide 23.0 Anion Gap 18 H BUN 76 H Creatinine 6.15 H Estim Creat Clear Calc 9.45 Est GFR (MDRD) Af Amer 9 L Est GFR (MDRD) Non-Af 7 L BUN/Creatinine Ratio 12.4 Glucose 263 H Calcium 8.8 Phosphorus 7.6 H Magnesium 2.9 H POC Glucose 269 H 06/04/18 06/04/18 06/04/18 11:21 17:03 22:00 WBC RBC Hgb Hct MCV MCH MCHC RDW RDW Differential Plt Count MPV Immature Gran % (Auto) Neut % (Auto) Lymph % (Auto) [place] % (Auto) Eos % (Auto) Baso % (Auto) Absolute Neuts (auto) Absolute Lymphs (auto) Total Counted Diff Path Review Sodium Potassium Chloride Carbon Dioxide Anion Gap BUN Creatinine Estim Creat Clear Calc Est GFR (MDRD) Af Amer Est GFR (MDRD) Non-Af BUN/Creatinine Ratio Glucose Calcium Phosphorus Magnesium POC Glucose 240 H 168 H 233 H 06/05/18 06/05/18 06/05/18 00:04 06:03 06:45 WBC 11.8 H RBC 3.69 L Hgb 9.8 L Hct 29.7 L MCV 80.5 L MCH 26.6 L MCHC 33.0 RDW 14.7 H RDW Differential 41.9 Plt Count 395 MPV 8.7 Immature Gran % (Auto) 2.500 H Neut % (Auto) 71.2 H Lymph % (Auto) 11.6 L [place] % (Auto) 11.7 H Eos % (Auto) 2.2 Baso % (Auto) 0.8 Absolute Neuts (auto) 8.4 H Absolute Lymphs (auto) 1.37 Total Counted Not Reportable Diff Path Review May foll Sodium Potassium Chloride Carbon Dioxide Anion Gap BUN Creatinine Estim Creat Clear Calc Est GFR (MDRD) Af Amer Est GFR (MDRD) Non-Af BUN/Creatinine Ratio Glucose Calcium Phosphorus Magnesium POC Glucose 250 H 209 H 06/05/18 06/05/18 06/05/18 06:45 12:34 17:40 WBC RBC Hgb Hct MCV MCH MCHC RDW RDW Differential Plt Count MPV Immature Gran % (Auto) Neut % (Auto) Lymph % (Auto) [place] % (Auto) Eos % (Auto) Baso % (Auto) Absolute Neuts (auto) Absolute Lymphs (auto) Total Counted Diff Path Review Sodium 134 L Potassium 4.5 Chloride 93 L Carbon Dioxide 21.0 Anion Gap 20 H BUN 92 H Creatinine 6.93 H Estim Creat Clear Calc 8.38 Est GFR (MDRD) Af Amer 8 L Est GFR (MDRD) Non-Af 7 L BUN/Creatinine Ratio 13.3 Glucose 219 H Calcium 8.9 Phosphorus Magnesium POC Glucose 141 H 159 H 06/05/18 06/05/18 06/06/18 21:18 23:23 03:50 WBC 11.6 H RBC 3.74 L Hgb 9.6 L Hct 30.6 L MCV 81.8 MCH 25.7 L MCHC 31.4 L RDW 14.8 H RDW Differential 44.5 H Plt Count 305 MPV 8.7 Immature Gran % (Auto) 1.700 H Neut % (Auto) 73.0 H Lymph % (Auto) 11.1 L [place] % (Auto) 11.5 H Eos % (Auto) 1.9 Baso % (Auto) 0.8 Absolute Neuts (auto) 8.5 H Absolute Lymphs (auto) 1.29 Total Counted Not Reportable Diff Path Review Sodium Potassium Chloride Carbon Dioxide Anion Gap BUN Creatinine Estim Creat Clear Calc Est GFR (MDRD) Af Amer Est GFR (MDRD) Non-Af BUN/Creatinine Ratio Glucose Calcium Phosphorus Magnesium POC Glucose 131 H 126 H 06/06/18 06/06/18 03:50 05:05 WBC RBC Hgb Hct MCV MCH MCHC RDW RDW Differential Plt Count MPV Immature Gran % (Auto) Neut % (Auto) Lymph % (Auto) [place] % (Auto) Eos % (Auto) Baso % (Auto) Absolute Neuts (auto) Absolute Lymphs (auto) Total Counted Diff Path Review Sodium 137 Potassium 4.1 Chloride 98 Carbon Dioxide 27.0 Anion Gap 12 BUN 55 H Creatinine 4.49 H Estim Creat Clear Calc 12.94 Est GFR (MDRD) Af Amer 13 L Est GFR (MDRD) Non-Af 11 L BUN/Creatinine Ratio 12.2 Glucose 188 H Calcium 8.8 Phosphorus Magnesium POC Glucose 173 H Clinical Impression(s) from Imaging Studies Chest X-Ray 05/23/18 15:15 IMPRESSION: Findings suggestive CHF with superimposed atelectasis and/or infiltrate in the right midlung. Electronically Signed: Royer Rowe MD at 15:56 EST , Service support , Chest X-Ray 05/24/18 10:30 IMPRESSION: Findings consistent with CHF. This appears worsening with areas of consolidation at the left lung base. Electronically Signed: Michael Braxton DO at 17:08 EST Tel [phone], Service support , KUB X-Ray 05/24/18 14:46 IMPRESSION: The tip of the orogastric tube is in the body of the stomach. Electronically Signed: Royer Rowe MD at 15:43 EST , Service support , Chest X-Ray 05/24/18 15:10 IMPRESSION: The tip of the endotracheal tube is at 6.3 cm proximal to the ehsan. Electronically Signed: Royer Rowe MD at 15:44 EST , Service support , Chest X-Ray 05/25/18 05:11 IMPRESSION: The tip of the endotracheal tube is at 2.4 sinus proximal to the ehsan. The remainder the examination is unchanged. Electronically Signed: Royer Rowe MD at 8:15 EST , Service support , Chest CT 05/25/18 09:38 IMPRESSION: Infiltrates in both lungs worse in the right upper lobe and both lower lobes. Electronically Signed: Royer Rowe MD at 11:32 EST , Service support , Chest X-Ray 05/26/18 10:28 IMPRESSION: Stable interval exam. Placement of right subclavian central venous catheter without evidence of pneumothorax Electronically Signed: Rocco Zepeda DO at 11:52 EST Tel , Service support , Chest X-Ray 05/28/18 05:55 IMPRESSION: Stable findings. Persistent bilateral pulmonary infiltrates, larger on the right. at 0514 Reported and signed by: West Saini MD Electronically Signed: West Saini, at 5:13 EST Tel , Service support , Chest X-Ray 05/28/18 15:06 IMPRESSION: All lines are in good position. Progressive bilateral infiltrations. Electronically Signed: Royer Rowe MD at 16:01 EST , Service support , Chest X-Ray 05/30/18 08:00 IMPRESSION: Stable examination. Electronically Signed: Royer Rowe MD at 13:52 EST , Service support , Chest X-Ray 06/04/18 08:44 IMPRESSION: All the support tubes are unchanged. Prior study, there has been improved aeration of both lungs as described. Electronically Signed: Royer Rowe MD at 13:50 EST , Service support , Chest X-Ray 06/04/18 17:15 Medical Necessity - Tobacco Use Smoking Status: Never smoker Tobacco Use: Non-smoker Assessment/Plan All Active Problems Chest pain (Acute) Acute respiratory failure with hypoxia (Acute) PNA (pneumonia) (Acute) Acute kidney injury (Acute) RECOMMENDATIONS: 1. Continue hemodialysis with fluid removal per nephrology recommendations. 2. Continue attempts at weaning from mechanical ventilation. Wean FiO2 and PEEP as tolerated. 3. Given the patient's failure to be weaned from mechanical ventilation, recommend proceeding with tracheostomy and PEG tube placement. 4. Temporary emergency guardianship has been established. Consent for PEG tube has been signed by the patient's guardian and is on the chart. 5. Continue tube feeds as ordered. 6. Continue aerosol treatments. 7. ENT consultation has been placed. IMPRESSIONS: 1. Acute combined respiratory failure secondary to severe community-acquired pneumonia The patient has been on treatment for multifocal pneumonia, and although improving, continues to have a significant ventilator requirement. At this time, the patient's antibiotics will be continued to complete her treatment course. We will continue to wean her FiO2 and PEEP as tolerated. Given the patient's inability to be weaned from mechanical ventilation, she will be a candidate for both trach and PEG tube placement. There are tentative plans for PEG tube to be placed at the bedside tomorrow morning. ENT has been consulted to assist with tracheostomy placement. The patient can be maintained on CPAP throughout today as tolerated. Recommend that she be placed back on assist control tonight. 2. Acute kidney injury Likely secondary to ATN, as the patient was initially diuresed on admission to the hospital and also developed a component of hypotension on arrival to the ICU. Nephrology is currently following. The patient has been responding to hemodialysis support. The patient's temporary hemodialysis catheter was removed and a tunneled catheter was subsequently placed on June 04. Recommend continuing dialysis and volume optimization per nephrology recommendations. 3. Indeterminate troponin/acute on chronic diastolic heart failure Echocardiogram revealed no wall motion abnormalities. The patient undoubtedly needs further volume removal. Nephrology is following to assist with volume management. 4. Morbid obesity/diabetes mellitus/anxiety/depression/PTSD Complicates care, management, recovery and prognosis. Continue Accu-Cheks and sliding scale insulin coverage. Tube feeds will be continued. TIME: 40 minutes of critical care time, independent of procedures, was spent addressing the patient's acute combined respiratory failure, severe community acquired pneumonia, acute kidney injury, diastolic heart failure with exacerbation, review of all data and collaboration with the care team. ([phone]) Code Visit 9xxxx: [id number] Critical care first hour
[2018-06-06] MEDS: Ipratropium/Albuterol Sulfate 3 ML AMPUL.NEB INHALATION ×4 (06:44→18:48)
--- NOTE | 2018-06-06 09:10 | PCM.PN.HOSP ---
Patient Problems: Active and Suspected Problems Chest pain (Acute) Acute respiratory failure with hypoxia (Acute) PNA (pneumonia) (Acute) Acute kidney injury (Acute) Subjective: Patient seen and examined. She is alert but does not answer any questions. She remains intubated. She had dialysis with removal of 4 L of fluid yesterday. She is undergoing a spontaneous breathing trial this morning. Labs and vitals reviewed. Vitals/I&O's: Vital Signs Temp Pulse Resp BP Pulse Ox 98.9 F 98 22 H 114/66 93 06/06/18 04:00 06/06/18 07:00 06/06/18 07:00 06/06/18 07:00 06/06/18 07:00 Oxygen Flow Rate (L/min) 50 Oxygen Delivery Method Mechanical Ventilator Weight: 303 lb 9.224 oz Body Mass Index (BMI) 49.7 Finger Stick Blood Glucose 150 Intake and Output for Last 24 Hours 06/04/18 06/05/18 06/06/18 23:59 23:59 23:59 Intake Total 2503 / 2503 3377.4 / 3377.4 485.5 / 485.5 Output Total 425 / 425 8650 / 8650 125 / 125 Balance 2078 / 2078 -5272.6 / -5272.6 360.5 / 360.5 General: Alert, - - intubated, sedated. HEENT: Atraumatic, PERRLA, EOMI, Normocephalic Oral: Dry Mucosa Neck: Supple, No JVD, Negative Carotid Bruits Lungs: - - decreased breath sounds bibasally. No wheezes or crackles. Cardiovascular: Regular rate, Regular Rhythm, Normal S1, Normal S2, No murmurs Abdomen: Bowel Sounds Present, Soft, Non Tender, Non-Distended, No Hepato-splenomegaly Extremities: No clubbing, No cyanosis, No edema, Capillary Refill Less than 3 Seconds Skin: No rashes, No breakdown Musculoskeletal: No Tenderness to Palpation of Joints or Extremities Lymphatic: No Cervical, Supraclavicular, or Inguinal Adenopathy Neurological: Cranial nerves II-XII grossly intact, Neuro grossly intact Psych/Mental Status: - - intubated, sedated. RASS score is 0 Laboratory Results 06/05/18 12:34: POC Glucose 141 H 06/05/18 17:40: POC Glucose 159 H 06/05/18 21:18: POC Glucose 131 H 06/05/18 23:23: POC Glucose 126 H 06/06/18 03:50: WBC 11.6 H, RBC 3.74 L, Hgb 9.6 L, Hct 30.6 L, MCV 81.8, MCH 25.7 L, MCHC 31.4 L, RDW 14.8 H, RDW Differential 44.5 H, Plt Count 305, MPV 8.7, Immature Gran % (Auto) 1.700 H, Neut % (Auto) 73.0 H, Lymph % (Auto) 11.1 L, [place] % (Auto) 11.5 H, Eos % (Auto) 1.9, Baso % (Auto) 0.8, Absolute Neuts (auto) 8.5 H, Absolute Lymphs (auto) 1.29, Total Counted Not Reportable 06/06/18 03:50: Sodium 137, Potassium 4.1, Chloride 98, Carbon Dioxide 27.0, Anion Gap 12, BUN 55 H, Creatinine 4.49 H, Estim Creat Clear Calc 12.94, Est GFR (MDRD) Af Amer 13 L, Est GFR (MDRD) Non-Af 11 L, BUN/Creatinine Ratio 12.2, Glucose 188 H, Calcium 8.8 06/06/18 05:05: POC Glucose 173 H Current Medications Acetaminophen (Tylenol Liquid) 650 mg GT Q4H PRN PRN PRN Reason: T > 100.5 F Last Admin: 05/25/18 01:27 Dose: 650 mg Albuterol Sulfate (Ventolin Aerosols) 2.5 mg INHALATION Q2H PRN PRN PRN Reason: SOB &/OR WHEEZING Last Admin: 06/04/18 18:40 Dose: 2.5 mg Albuterol/Ipratropium (Duoneb) 3 ml INHALATION Q4HWA.RT RUBI Last Admin: 06/06/18 06:44 Dose: 3 ml Calamine/Phenol (Calmoseptine Ointment) 1 applic TOPICAL BID RUBI; Protocol Last Admin: 06/05/18 21:15 Dose: 1 applicatio Chlorhexidine Gluconate () 1 each TOPICAL DAILY RUBI Last Admin: 06/06/18 05:07 Dose: 1 each Chlorhexidine Gluconate () 15 ml PO BID RUBI Last Admin: 06/05/18 21:15 Dose: 15 ml Dextrose (D50w Syringe) 0 gm IV X1 PRN; Protocol PRN Reason: Hypoglycemia Famotidine (Pepcid) 20 mg GT DAILY [facility] Last Admin: 06/05/18 09:48 Dose: 20 mg Glucagon () 1 mg IM .X1 PRN PRN Reason: Hypoglycemia Heparin Sodium (Porcine) (Heparin Na) 5,000 unit SC Q8 [facility] Last Admin: 06/06/18 05:07 Dose: 5,000 unit Heparin Sodium (Porcine) () 2,500 units IV UD PRN PRN Reason: HEPARIN FLUSH Last Admin: 06/05/18 13:06 Dose: 2,500 units Sodium Chloride () 250 mls @ 15 mls/hr IV .[id number] PRN PRN Reason: SALINE FLUSH Last Admin: 06/05/18 09:48 Dose: 15 mls/hr Sodium Chloride () 250 mls @ 15 mls/hr IV .[id number] PRN PRN Reason: SALINE FLUSH Sodium Chloride () 250 mls @ 15 mls/hr IV .[id number] PRN PRN Reason: SALINE FLUSH Sodium Chloride () 250 mls @ 15 mls/hr IV .[id number] PRN PRN Reason: SALINE FLUSH Fentanyl () 100 mls @ 15 mls/hr IV .Q20H [facility] Last Admin: 06/05/18 17:49 Dose: 15 mls/hr Enteral Nutritional Formula (Vital Af 1.2 Glenn Liquid) 1,000 mls @ 60 mls/hr GT .[id number] [facility] Last Admin: 06/06/18 05:00 Dose: Not Given Levofloxacin (Levaquin Iv) 500 mg in 100 mls @ 100 mls/hr IV Q48 [facility] Last Admin: 06/05/18 13:07 Dose: 100 mls/hr Propofol (Diprivan) 1,000 mg in 100 mls @ 8.292 mls/hr CONT INF .Q12H [facility] Last Admin: 06/06/18 06:36 Dose: Not Given Cefazolin Sodium 2 gm/ Sodium (Chloride) 110 mls @ 150 mls/hr IV X1 ONE Stop: 06/07/18 11:43 Insulin Glargine (Lantus (Bkc)) 60 units SC BID [facility] Last Admin: 06/05/18 21:21 Dose: 60 u Insulin Human Lispro (Humalog Kwikpen (Bkc)) 0 unit SC Q6 [facility]; Protocol Last Admin: 06/06/18 05:07 Dose: 4 u Nystatin (Mycostatin Powder) 1 applic TOPICAL TID [facility]; Protocol Last Admin: 06/06/18 05:08 Dose: 1 applic Polyethylene Glycol (Miralax) 17 gm GT DAILY [facility] Last Admin: 06/05/18 09:49 Dose: Not Given Risperidone (Risperdal) 2 mg GT BID [facility] Last Admin: 06/05/18 21:16 Dose: 2 mg Risperidone (Risperdal) 0.5 mg GT BID [facility] Last Admin: 06/05/18 21:16 Dose: 0.5 mg Sodium Chloride () 5 - 15 ml IV UD PRN PRN Reason: SALINE FLUSH Last Admin: 06/06/18 05:07 Dose: 15 ml Sodium Chloride () 10 ml IV UD PRN PRN Reason: Dialysis Catheter Flush Medical Necessity - Tobacco Use Smoking Status: Never smoker Tobacco Use: Non-smoker Assessment/Plan All Active Problems Chest pain (Acute) Acute respiratory failure with hypoxia (Acute) PNA (pneumonia) (Acute) Acute kidney injury (Acute) 1. Acute hypoxic and hypercapnic respiratory failure due to community acquired pneumonia remains intubated and sedated. having another spontaneous breathing trial this morning. If she fails, to have tracheostomy and PEG tube Blood cultures showed no growth and urine grew Klebsiella pneumonia. now on IV cefazolin and IV levaquin. Plan is for patient to have tracheostomy and PEG tube as she has been on mechanical ventilation for 13 days today. Awaiting guardianship by finance attorney. Awaiting guardianship. on propofol and fentanyl for sedation 2. Community-acquired pneumonia: As under 1. Sputum culture showed mixed normal respiratory addison with no Selin. 3. Acute renal failure: Nephrology on board. had tunnelled dialysis catheter placed for fdc dialysis had 8L of fluid removed yesterday. will be needing watermaster dialysis now 4. Acute on chronic diastolic heart failure 2D echo showed normal left ventricular size and function with EF of 55% in stage I diastolic dysfunction. Requiring dialysis for fluid removal. 5. Type 2 diabetes mellitus: On Lantus 60IU bid and insulin sliding scale. Currently on tube feeding. 6. Depression and anxiety:currently on risperdal to help with agitation. Nutrition: on tube feeding. DVT prophylaxis: Heparin GI prophylaxis: famotidine Code Visit Inpatient E&M: [id number] Subs Hosp L3
--- NOTE | 2018-06-06 09:19 | PN_ITS ---
Patient Problems: Active and Suspected Problems Chest pain (Acute) Acute respiratory failure with hypoxia (Acute) PNA (pneumonia) (Acute) Acute kidney injury (Acute) Subjective: Patient seen and examined. She is alert but does not answer any questions. She remains intubated. She had dialysis with removal of 4 L of fluid yesterday. She is undergoing a spontaneous breathing trial this morning. Labs and vitals reviewed. Vitals/I&O's: Vital Signs Temp Pulse Resp BP Pulse Ox 98.9 F 98 22 H 114/66 93 06/06/18 04:00 06/06/18 07:00 06/06/18 07:00 06/06/18 07:00 06/06/18 07:00 Oxygen Flow Rate (L/min) 50 Oxygen Delivery Method Mechanical Ventilator Weight: 303 lb 9.224 oz Body Mass Index (BMI) 49.7 Finger Stick Blood Glucose 150 Intake and Output for Last 24 Hours 06/04/18 06/05/18 06/06/18 23:59 23:59 23:59 Intake Total 2503 / 2503 3377.4 / 3377.4 485.5 / 485.5 Output Total 425 / 425 8650 / 8650 125 / 125 Balance 2078 / 2078 -5272.6 / -5272.6 360.5 / 360.5 General: Alert, - - intubated, sedated. HEENT: Atraumatic, PERRLA, EOMI, Normocephalic Oral: Dry Mucosa Neck: Supple, No JVD, Negative Carotid Bruits Lungs: - - decreased breath sounds bibasally. No wheezes or crackles. Cardiovascular: Regular rate, Regular Rhythm, Normal S1, Normal S2, No murmurs Abdomen: Bowel Sounds Present, Soft, Non Tender, Non-Distended, No Hepato- splenomegaly Extremities: No clubbing, No cyanosis, No edema, Capillary Refill Less than 3 Seconds Skin: No rashes, No breakdown Musculoskeletal: No Tenderness to Palpation of Joints or Extremities Lymphatic: No Cervical, Supraclavicular, or Inguinal Adenopathy Neurological: Cranial nerves II-XII grossly intact, Neuro grossly intact Psych/Mental Status: - - intubated, sedated. RASS score is 0 Laboratory Results 06/05/18 12:34: POC Glucose 141 H 06/05/18 17:40: POC Glucose 159 H 06/05/18 21:18: POC Glucose 131 H 06/05/18 23:23: POC Glucose 126 H 06/06/18 03:50: WBC 11.6 H, RBC 3.74 L, Hgb 9.6 L, Hct 30.6 L, MCV 81.8, MCH 25.7 L, MCHC 31.4 L, RDW 14.8 H, RDW Differential 44.5 H, Plt Count 305, MPV 8.7, Immature Gran % (Auto) 1.700 H, Neut % (Auto) 73.0 H, Lymph % (Auto) 11.1 L , [place] % (Auto) 11.5 H, Eos % (Auto) 1.9, Baso % (Auto) 0.8, Absolute Neuts (auto) 8.5 H, Absolute Lymphs (auto) 1.29, Total Counted Not Reportable 06/06/18 03:50: Sodium 137, Potassium 4.1, Chloride 98, Carbon Dioxide 27.0, Anion Gap 12, BUN 55 H, Creatinine 4.49 H, Estim Creat Clear Calc 12.94, Est GFR (MDRD) Af Amer 13 L, Est GFR (MDRD) Non-Af 11 L, BUN/Creatinine Ratio 12.2, Glucose 188 H, Calcium 8.8 06/06/18 05:05: POC Glucose 173 H Current Medications Acetaminophen (Tylenol Liquid) 650 mg GT Q4H PRN PRN PRN Reason: T > 100.5 F Last Admin: 05/25/18 01:27 Dose: 650 mg Albuterol Sulfate (Ventolin Aerosols) 2.5 mg INHALATION Q2H PRN PRN PRN Reason: SOB &/OR WHEEZING Last Admin: 06/04/18 18:40 Dose: 2.5 mg Albuterol/Ipratropium (Duoneb) 3 ml INHALATION Q4HWA.RT RUBI Last Admin: 06/06/18 06:44 Dose: 3 ml Calamine/Phenol (Calmoseptine Ointment) 1 applic TOPICAL BID RUBI; Protocol Last Admin: 06/05/18 21:15 Dose: 1 applicatio Chlorhexidine Gluconate () 1 each TOPICAL DAILY RUBI Last Admin: 06/06/18 05:07 Dose: 1 each Chlorhexidine Gluconate () 15 ml PO BID RUBI Last Admin: 06/05/18 21:15 Dose: 15 ml Dextrose (D50w Syringe) 0 gm IV X1 PRN; Protocol PRN Reason: Hypoglycemia Famotidine (Pepcid) 20 mg GT DAILY [facility] Last Admin: 06/05/18 09:48 Dose: 20 mg Glucagon () 1 mg IM .X1 PRN PRN Reason: Hypoglycemia Heparin Sodium (Porcine) (Heparin Na) 5,000 unit SC Q8 [facility] Last Admin: 06/06/18 05:07 Dose: 5,000 unit Heparin Sodium (Porcine) () 2,500 units IV UD PRN PRN Reason: HEPARIN FLUSH Last Admin: 06/05/18 13:06 Dose: 2,500 units Sodium Chloride () 250 mls @ 15 mls/hr IV .[id number] PRN PRN Reason: SALINE FLUSH Last Admin: 06/05/18 09:48 Dose: 15 mls/hr Sodium Chloride () 250 mls @ 15 mls/hr IV .[id number] PRN PRN Reason: SALINE FLUSH Sodium Chloride () 250 mls @ 15 mls/hr IV .[id number] PRN PRN Reason: SALINE FLUSH Sodium Chloride () 250 mls @ 15 mls/hr IV .[id number] PRN PRN Reason: SALINE FLUSH Fentanyl () 100 mls @ 15 mls/hr IV .Q20H [facility] Last Admin: 06/05/18 17:49 Dose: 15 mls/hr Enteral Nutritional Formula (Vital Af 1.2 Glenn Liquid) 1,000 mls @ 60 mls/hr GT .[id number] [facility] Last Admin: 06/06/18 05:00 Dose: Not Given Levofloxacin (Levaquin Iv) 500 mg in 100 mls @ 100 mls/hr IV Q48 [facility] Last Admin: 06/05/18 13:07 Dose: 100 mls/hr Propofol (Diprivan) 1,000 mg in 100 mls @ 8.292 mls/hr CONT INF .Q12H [facility] Last Admin: 06/06/18 06:36 Dose: Not Given Cefazolin Sodium 2 gm/ Sodium (Chloride) 110 mls @ 150 mls/hr IV X1 ONE Stop: 06/07/18 11:43 Insulin Glargine (Lantus (Bkc)) 60 units SC BID [facility] Last Admin: 06/05/18 21:21 Dose: 60 u Insulin Human Lispro (Humalog Kwikpen (Bkc)) 0 unit SC Q6 [facility]; Protocol Last Admin: 06/06/18 05:07 Dose: 4 u Nystatin (Mycostatin Powder) 1 applic TOPICAL TID [facility]; Protocol Last Admin: 06/06/18 05:08 Dose: 1 applic Polyethylene Glycol (Miralax) 17 gm GT DAILY [facility] Last Admin: 06/05/18 09:49 Dose: Not Given Risperidone (Risperdal) 2 mg GT BID [facility] Last Admin: 06/05/18 21:16 Dose: 2 mg Risperidone (Risperdal) 0.5 mg GT BID [facility] Last Admin: 06/05/18 21:16 Dose: 0.5 mg Sodium Chloride () 5 - 15 ml IV UD PRN PRN Reason: SALINE FLUSH Last Admin: 06/06/18 05:07 Dose: 15 ml Sodium Chloride () 10 ml IV UD PRN PRN Reason: Dialysis Catheter Flush Medical Necessity - Tobacco Use Smoking Status: Never smoker Tobacco Use: Non-smoker Assessment/Plan All Active Problems Chest pain (Acute) Acute respiratory failure with hypoxia (Acute) PNA (pneumonia) (Acute) Acute kidney injury (Acute) 1. Acute hypoxic and hypercapnic respiratory failure due to community acquired pneumonia * remains intubated and sedated. having another spontaneous breathing trial this morning. If she fails, to have tracheostomy and PEG tube * Blood cultures showed no growth and urine grew Klebsiella pneumonia. * now on IV cefazolin and IV levaquin. * Plan is for patient to have tracheostomy and PEG tube as she has been on mechanical ventilation for 13 days today. * Awaiting guardianship by civil rights attorney. Awaiting guardianship. * on propofol and fentanyl for sedation * 2. Community-acquired pneumonia: As under 1. Sputum culture showed mixed normal respiratory addison with no Selin. 3. Acute renal failure: * Nephrology on board. * had tunnelled dialysis catheter placed for halfway dialysis * had 8L of fluid removed yesterday. * will be needing halfway dialysis now * 4. Acute on chronic diastolic heart failure * 2D echo showed normal left ventricular size and function with EF of 55% in stage I diastolic dysfunction. * Requiring dialysis for fluid removal. * 5. Type 2 diabetes mellitus: On Lantus 60IU bid and insulin sliding scale. Currently on tube feeding. 6. Depression and anxiety:currently on risperdal to help with agitation. Nutrition: on tube feeding. DVT prophylaxis: Heparin GI prophylaxis: famotidine Code Visit Inpatient E&M: 87035 [facility] Hosp L3
--- NOTE | 2018-06-06 09:28 | CASEMGMT ---
SW participated in ICU rounds this morning, pt remains on a vent at this time. As per RN, Hunter Rice came in yesterday and stated he is now temporary guardian. SW reviewed papers in the chart, Hunter Rice was granted temporary guardianship on 06/05 for 72 hours; there is to be a hearing tomorrow morning at 8am regarding the continued guardianship status. SW will continue to follow regarding guardianship issues and discharge needs. EVA Bustos, [employer]
--- NOTE | 2018-06-06 10:11 | CASEMGMT ---
Addendum entered by Peri Bowden 06/06/18 10:54: Call received from [facility] and she was given update. Made aware PEG tentatively scheduled for tomorrow 06/07 and that pt remains intubated, with potential plans for extubation or Monday. Trach has not been scheduled yet. Original Note: LINDSAY CHRISTOPHER Note: Call placed to [facility] to provide update. No answer. Left message. Awaiting return call. Gracia SPENCER RN CM
[2018-06-06 10:15] LABS: Pathologist Review Reviewed
[2018-06-06 10:17] LABS: Pathologist Review Reviewed
[2018-06-06] MEDS: Famotidine 20 MG Tablet GT (10:34)
[2018-06-06] MEDS: RisperiDONE 0.5 MG Tablet GT ×2 (10:34→21:06)
[2018-06-06] MEDS: RisperiDONE 2 MG Tablet GT ×2 (10:34→21:06)
[2018-06-06] MEDS: Chlorhexidine 15 ML PO ×2 (10:35→21:06)
[2018-06-06] MEDS: Menthol/Lanolin/Calamine/Znox 113 GM Tube 1 APPLIC TOPICAL ×2 (10:36→21:06)
--- NOTE | 2018-06-06 10:49 | PCM.PN.BLA ---
Progress Note Plan for EGD with PEG tube placement to be completed in the patient's room tomorrow by Dr. Luke with estimated time of 11:30. Consent has been signed by temporary guardian. Code Visit Inpatient E&M: 34169 Subs Hosp L1
--- NOTE | 2018-06-06 10:54 | PN_ITS ---
Progress Note Plan for EGD with PEG tube placement to be completed in the patient's room tomorrow by Dr. Luke with estimated time of 11:30. Consent has been signed by temporary guardian. Code Visit Inpatient E&M: 66052 Subs Hosp L1
--- NOTE | 2018-06-06 11:13 | PCM.PN.REN ---
Patient Problems: Active and Suspected Problems Chest pain (Acute) Acute respiratory failure with hypoxia (Acute) PNA (pneumonia) (Acute) Acute kidney injury (Acute) Subjective: no new events patient is currently on SBT, no sedation plans for Trach and PEG tomorrow - Physical Exam HEENT: Atraumatic, PERRLA, EOMI, Normocephalic Neck: Supple, No JVD, Negative Carotid Bruits Lungs: Clear to auscultation, Normal air movement Cardiovascular: Regular rate, No murmurs Abdomen: Bowel Sounds Present, Soft, Non Tender Extremities: No edema, Capillary Refill Less than 3 Seconds Skin: No rashes, No breakdown Musculoskeletal: No Tenderness to Palpation of Joints or Extremities Vital Signs Temp Pulse Resp BP Pulse Ox 98.9 F 95 26 H 107/51 L 93 06/06/18 04:00 06/06/18 09:28 06/06/18 09:28 06/06/18 09:00 06/06/18 09:28 Oxygen Flow Rate (L/min) 50 Oxygen Delivery Method Mechanical Ventilator Weight: 137.7 kg Body Mass Index (BMI) 49.7 Finger Stick Blood Glucose 150 Intake and Output for Last 24 Hours 06/04/18 06/05/18 06/06/18 23:59 23:59 23:59 Intake Total 2503 / 2503 3377.4 / 3377.4 535.5 / 535.5 Output Total 425 / 425 8650 / 8650 125 / 125 Balance 2078 / 2078 -5272.6 / -5272.6 410.5 / 410.5 Laboratory Tests Past 24 Hrs 06/04/18 06/05/18 06/06/18 08:35 06:45 03:50 WBC 11.6 H RBC 3.74 L Hgb 9.6 L Hct 30.6 L MCV 81.8 MCH 25.7 L MCHC 31.4 L RDW 14.8 H RDW Differential 44.5 H Plt Count 305 MPV 8.7 Immature Gran % (Auto) 1.700 H Neut % (Auto) 73.0 H Lymph % (Auto) 11.1 L [place] % (Auto) 11.5 H Eos % (Auto) 1.9 Baso % (Auto) 0.8 Absolute Neuts (auto) 8.5 H Absolute Lymphs (auto) 1.29 Total Counted Not Reportable Diff Path Review Reviewed Reviewed Sodium Potassium Chloride Carbon Dioxide Anion Gap BUN Creatinine Estim Creat Clear Calc Est GFR (MDRD) Af Amer Est GFR (MDRD) Non-Af BUN/Creatinine Ratio Glucose Calcium 06/06/18 03:50 WBC RBC Hgb Hct MCV MCH MCHC RDW RDW Differential Plt Count MPV Immature Gran % (Auto) Neut % (Auto) Lymph % (Auto) [place] % (Auto) Eos % (Auto) Baso % (Auto) Absolute Neuts (auto) Absolute Lymphs (auto) Total Counted Diff Path Review Sodium 137 Potassium 4.1 Chloride 98 Carbon Dioxide 27.0 Anion Gap 12 BUN 55 H Creatinine 4.49 H Estim Creat Clear Calc 12.94 Est GFR (MDRD) Af Amer 13 L Est GFR (MDRD) Non-Af 11 L BUN/Creatinine Ratio 12.2 Glucose 188 H Calcium 8.8 POC Glucose 06/06/18 06/05/18 06/05/18 05:05 23:23 21:18 POC Glucose 173 H 126 H 131 H 06/05/18 06/05/18 17:40 12:34 POC Glucose 159 H 141 H Medical Necessity - Tobacco Use Smoking Status: Never smoker Tobacco Use: Non-smoker Assessment/Plan All Active Problems Chest pain (Acute) Acute respiratory failure with hypoxia (Acute) PNA (pneumonia) (Acute) Acute kidney injury (Acute) 1-Acute kidney injury. Normal creatinine 2014. Patient presented with creatinine 1.07 mg/dL. UA showed 100 protein and 100 blood but no RBCs or white cell count. 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 C3/C4 are within normal limits. Hepatitis panel is negative No recovery of kidney function. Remains anuric Patient is currently hemodialysis dependent for metabolic and volume support. Dialysis started on May 28. 2-Acute respiratory failure from bilateral pneumonia. Ventilator support as per the community assistant. 2-[id number] pneumonia. On levaquin which is appropriately dosed for HD patient. Plan last CXR is pretty wet, removed 4 L yesterday will try for another 2-3 L with UF today plan is for her to get a trach and PEG
--- NOTE | 2018-06-06 11:40 | CON.PCM_ITS ---
Problem List (1) Acute respiratory failure with hypoxia Status: Acute Reason for Consult Date of Consultation: 06/06/18 History of Present Illness: The patient is a 57 year old F admitted for CAP with resultant multi organ system failure. she has been intubated for 14 days with inability to wean from the ventilator. consultation was placed for tracheostomy. Past Medical History Past Medical History (Chronic Problems): Chronic Problems Morbid obesity (Chronic) Histrionic personality disorder (Chronic) PTSD (post-traumatic stress disorder) (Chronic) Anxiety (Chronic) Diabetes (Chronic) Allergies No Known Allergies Allergy (Verified 05/23/18 14:58) Home Medications: Ambulatory Orders Medication Instructions Recorded Hydroxyzine Pamoate [Vistaril] 50 mg PO TID 01/13/14 Zolpidem Tartrate [Ambien] 10 mg PO QHS 01/13/14 Atorvastatin Calcium [Lipitor] 40 mg PO QHS 05/23/18 Fluticasone 0.05% [Flonase Nasal 2 sprays NASAL DAILY 05/23/18 [place]] Insulin Human 70/30 [Novolog Mix 35 unit SC BID 05/23/18 70-30 Flexpen Syrn] Linagliptin [Tradjenta] 5 mg PO DAILY 05/23/18 Lorazepam [Ativan] 1 mg PO BID 05/23/18 Meloxicam 7.5 mg PO DAILY 05/23/18 Paliperidone [Paliperidone ER] 6 mg PO BID 05/23/18 Ranitidine HCl 150 mg PO DAILY 05/23/18 Surgical History: cholecystectomy, - - wrist surger (R) Lives: Spouse/ Significant Other Smoking Status: Never smoker Tobacco Use: Non-smoker Alcohol: None Drugs: None - *Family History Maternal History Items: Cancer - lung cancer Paternal History Items: No pertinent history Patient Problems: Active and Suspected Problems Chest pain (Acute) Acute respiratory failure with hypoxia (Acute) PNA (pneumonia) (Acute) Acute kidney injury (Acute) Subjective: unresponsive to conversation. - Physical Exam General: - - does not participate in conversation Neck: - - no neck scars. obese. Vital Signs Temp Pulse Resp BP Pulse Ox 98.7 F 89 20 H 115/70 93 06/06/18 10:00 06/06/18 11:00 06/06/18 11:00 06/06/18 11:00 06/06/18 11:00 Oxygen Flow Rate (L/min) 50 Oxygen Delivery Method Mechanical Ventilator Weight: 137.7 kg Body Mass Index (BMI) 49.7 Finger Stick Blood Glucose 150 Intake and Output for Last 24 Hours 06/04/18 06/05/18 06/06/18 23:59 23:59 23:59 Intake Total 2503 / 2503 3377.4 / 3377.4 585.5 / 585.5 Output Total 425 / 425 8650 / 8650 125 / 125 Balance 2078 / 2078 -5272.6 / -5272.6 460.5 / 460.5 Laboratory Tests Past 24 Hrs 06/04/18 06/05/18 06/06/18 08:35 06:45 03:50 WBC 11.6 H RBC 3.74 L Hgb 9.6 L Hct 30.6 L MCV 81.8 MCH 25.7 L MCHC 31.4 L RDW 14.8 H RDW Differential 44.5 H Plt Count 305 MPV 8.7 Immature Gran % (Auto) 1.700 H Neut % (Auto) 73.0 H Lymph % (Auto) 11.1 L [place] % (Auto) 11.5 H Eos % (Auto) 1.9 Baso % (Auto) 0.8 Absolute Neuts (auto) 8.5 H Absolute Lymphs (auto) 1.29 Total Counted Not Reportable Diff Path Review Reviewed Reviewed Sodium Potassium Chloride Carbon Dioxide Anion Gap BUN Creatinine Estim Creat Clear Calc Est GFR (MDRD) Af Amer Est GFR (MDRD) Non-Af BUN/Creatinine Ratio Glucose Calcium 06/06/18 03:50 WBC RBC Hgb Hct MCV MCH MCHC RDW RDW Differential Plt Count MPV Immature Gran % (Auto) Neut % (Auto) Lymph % (Auto) [place] % (Auto) Eos % (Auto) Baso % (Auto) Absolute Neuts (auto) Absolute Lymphs (auto) Total Counted Diff Path Review Sodium 137 Potassium 4.1 Chloride 98 Carbon Dioxide 27.0 Anion Gap 12 BUN 55 H Creatinine 4.49 H Estim Creat Clear Calc 12.94 Est GFR (MDRD) Af Amer 13 L Est GFR (MDRD) Non-Af 11 L BUN/Creatinine Ratio 12.2 Glucose 188 H Calcium 8.8 POC Glucose 06/06/18 06/05/18 06/05/18 05:05 23:23 21:18 POC Glucose 173 H 126 H 131 H 06/05/18 06/05/18 17:40 12:34 POC Glucose 159 H 141 H Assessment/Plan All Active Problems Chest pain (Acute) Acute respiratory failure with hypoxia (Acute) PNA (pneumonia) (Acute) Acute kidney injury (Acute) 57 year old female intubated for 14 days s/p CAP with failure to wean from ventilation -will check with scheduling as to when tracheostomy can be performed.
[2018-06-06 12:45] LABS: Bedside Glucose 140 mg/dL (70-110)
[2018-06-06] MEDS: Vital AF 1.2 Cal Liquid 1,000 ML 60 ML GT (18:03)
[2018-06-06 18:16] LABS: Bedside Glucose 137 mg/dL (70-110)
[2018-06-06] MEDS: Heparin 10,000 UNITS/10 ML Vial IV (18:51)
--- NOTE | 2018-06-06 19:26 | DIALYSIS ---
Hemodialysis completed, -3400ml off. Line reversal was required. Difficulty with alarms when pt bucks vent. Clotting required circuit change with no blood loss. CVC dressing D/I. Closed with Heparin to each lumen fill volume. Report to Lisy/JAJA mijares RN
[2018-06-06] MEDS: fentaNYL drip 100 ML 15 MCG IV (19:35)
[2018-06-06 21:21] LABS: Bedside Glucose 240 mg/dL (70-110)
[2018-06-06 23:25] LABS: Bedside Glucose 233 mg/dL (70-110)
[2018-06-07] VITALS (45 sets, daily range): BP systolic 99–132; BP diastolic 57–81; PULSE 61–93; RESP 12–26; TEMP 36.7–37.6; O2SAT 40–97
[2018-06-07] MEDS: CHLORHEXIDINE GLUC 2% CLOTH 1 EACH TOWELETTE TOPICAL (03:24)
[2018-06-07] MEDS: fentaNYL drip 100 ML 15 MCG IV ×3 (03:24→21:41)
[2018-06-07 04:18] LABS: Absolute Lymphocyte Count 1.47 X10^3/ul (0.83-4.51); Absolute Neutrophil Count 7.5 X10^3/uL (2.0-7.7); Basophil# 0.16 X10^3/uL; Basophil% 1.5 % (0-1); Eosinophil# 0.15 X10^3/uL; Eosinophils% 1.4 % (0-5); Hematocrit 33.1 % (37-47); Hemoglobin 10.4 g/dl (12.0-15.0); Lymphocyte # 1.47 X10^3/ul (4.0); Lymphocyte % 13.6 % (19-41); Mean Corp Hgb Conc 31.4 g/gl (32-36); Mean Corpuscular Hgb 25.9 pg (27.0-32.0); Mean Corpuscular Volume 82.5 fL (81-99); Mean Platelet Vol. 8.1 fl (6.2-12.0); Monocyte# 1.28 X10^3/uL; Monocyte% 11.8 % (0-10); Neutrophil # 7.47 X10^3/uL (2.7-7.7); Neutrophil % 69.1 % (47-70); Platelet Count 319 K/mm3 (150-450); RBC Distribution Width CV 14.7 % (11.6-14.6); RBC Distribution Width SD 43.4 fl (35.1-43.9); Red Blood Count 4.01 M/mm3 (4.2-5.4); White Blood Count 10.8 K/mm3 (4.4-11.0)
[2018-06-07 04:21] LABS: POSITIVE COUNT YES; POSITIVE DIFFERENTIAL NO; POSITIVE MORPHOLOGY YES
[2018-06-07 04:28] LABS: Anion Gap 11 (5-15); BUN 41 mg/dL (7-18); BUN/Creat Ratio 12.1 RATIO (10-20); Calcium,Total 8.3 mg/dL (8.5-10.1); Chloride 99 mmol/L (98-107); Creatinine, Serum 3.38 mg/dL (0.55-1.02); EST Glomerular Filtration Rate 15 mL/min (>60); Est Glom Filt Rate - Afr Amer 18 mL/min (>60); Estimated Creatinine Clearance 17.19 ml/min; Glucose 190 mg/dL (74-106); Potassium 3.9 mmol/L (3.5-5.1); Sodium Level 139 mmol/L (136-145)
[2018-06-07] MEDS: Ondansetron 4 MG/2 ML Vial IV (05:05)
[2018-06-07] MEDS: 0.9% NaCl Peripheral Flush Adult/Peds IV ×3 (05:05→12:27)
[2018-06-07] MEDS: Nystatin Powder 15gm Bottle 1 APPLIC TOPICAL ×3 (05:10→21:43)
[2018-06-07 05:16] LABS: Bedside Glucose 192 mg/dL (70-110)
--- NOTE | 2018-06-07 06:52 | PCM.PN.INT ---
Subjective: The patient was seen and examined at the bedside this morning. Events from the last 24 hours have been reviewed. The patient is currently afebrile, hemodynamically stable and maintaining appropriate oxygen saturations on assist control mode mechanical ventilation with an FiO2 of 40%. The patient was able to remain on spontaneous mode throughout yesterday. She did undergo hemodialysis with an additional 3+ liters of fluid removed. She is now overall net +3.8 L for the admission. Overnight, the patient did experience an episode of emesis. Her tube feeds were subsequently placed on hold, as she is scheduled to have bedside PEG tube placement later this morning. She failed her spontaneous breathing trial this morning due to hypoxia. The patient was evaluated by ENT yesterday as well, with plans for tracheostomy placement next week. Objective: The patient's most recent lab work, culture data and imaging studies have all been personally reviewed. Infectious workup was noted to be negative with the exception of a urine culture which was positive for Klebsiella pneumonia. Surface echocardiogram dated May 25 revealed evidence of stage I diastolic dysfunction with an ejection fraction of 55%. General: No apparent distress, - - Opens eyes to verbal stimulation. Currently tolerating assist control mode of mechanical ventilation without issue. No dyssynchrony noted. HEENT: Atraumatic, PERRLA, Normocephalic Oral: No Gingival or Mucosal Lesions/ Ulcerations, - - Endotracheal and OG tubes remain in place. Neck: Supple, No Nodes, Trachea Midline, - - Tunneled hemodialysis catheter and temporary triple-lumen catheter in place Lungs: No rhonchi, No wheeze, No rales, Diminished Cardiovascular: Regular rate, Regular Rhythm, Normal S1, Normal S2, No murmurs Abdomen: Bowel Sounds Present, Soft, Non Tender, Obese Extremities: No clubbing, No cyanosis, No edema Skin: - - No significant change from previous. Musculoskeletal: No Tenderness to Palpation of Joints or Extremities, No Muscle Wasting Lymphatic: No Cervical, Supraclavicular, or Inguinal Adenopathy Neurological: - - No focal neurological deficits. Remains CAM+ Psych/Mental Status: Flat Affect Vital Signs Temp Pulse Resp BP Pulse Ox 37.3 C H 88 16 116/80 93 06/07/18 00:00 06/07/18 06:00 06/07/18 06:00 06/07/18 06:00 06/07/18 06:00 Oxygen Flow Rate (L/min) 50 Oxygen Delivery Method Mechanical Ventilator Weight: 292 lb 12.382 oz Body Mass Index (BMI) 49.7 Finger Stick Blood Glucose 150 Intake and Output for Last 24 Hours 06/05/18 06/06/18 06/07/18 23:59 23:59 23:59 Intake Total 3377.4 / 3377.4 1709.7 / 1709.7 51.4 / 51.4 Output Total 8650 / 8650 3590 / 3590 Balance -5272.6 / -5272.6 -1880.3 / -1880.3 26.4 / 26.4 Labs (Last 48 Hours) 06/04/18 06/05/18 06/05/18 08:35 06:45 06:45 WBC 11.8 H RBC 3.69 L Hgb 9.8 L Hct 29.7 L MCV 80.5 L MCH 26.6 L MCHC 33.0 RDW 14.7 H RDW Differential 41.9 Plt Count 395 MPV 8.7 Immature Gran % (Auto) 2.500 H Neut % (Auto) 71.2 H Lymph % (Auto) 11.6 L [place] % (Auto) 11.7 H Eos % (Auto) 2.2 Baso % (Auto) 0.8 Absolute Neuts (auto) 8.4 H Absolute Lymphs (auto) 1.37 Total Counted Not Reportable Diff Path Review Reviewed Reviewed Sodium 134 L Potassium 4.5 Chloride 93 L Carbon Dioxide 21.0 Anion Gap 20 H BUN 92 H Creatinine 6.93 H Estim Creat Clear Calc 8.38 Est GFR (MDRD) Af Amer 8 L Est GFR (MDRD) Non-Af 7 L BUN/Creatinine Ratio 13.3 Glucose 219 H Calcium 8.9 POC Glucose 06/05/18 06/05/18 06/05/18 12:34 17:40 21:18 WBC RBC Hgb Hct MCV MCH MCHC RDW RDW Differential Plt Count MPV Immature Gran % (Auto) Neut % (Auto) Lymph % (Auto) [place] % (Auto) Eos % (Auto) Baso % (Auto) Absolute Neuts (auto) Absolute Lymphs (auto) Total Counted Diff Path Review Sodium Potassium Chloride Carbon Dioxide Anion Gap BUN Creatinine Estim Creat Clear Calc Est GFR (MDRD) Af Amer Est GFR (MDRD) Non-Af BUN/Creatinine Ratio Glucose Calcium POC Glucose 141 H 159 H 131 H 06/05/18 06/06/18 06/06/18 23:23 03:50 03:50 WBC 11.6 H RBC 3.74 L Hgb 9.6 L Hct 30.6 L MCV 81.8 MCH 25.7 L MCHC 31.4 L RDW 14.8 H RDW Differential 44.5 H Plt Count 305 MPV 8.7 Immature Gran % (Auto) 1.700 H Neut % (Auto) 73.0 H Lymph % (Auto) 11.1 L [place] % (Auto) 11.5 H Eos % (Auto) 1.9 Baso % (Auto) 0.8 Absolute Neuts (auto) 8.5 H Absolute Lymphs (auto) 1.29 Total Counted Not Reportable Diff Path Review Sodium 137 Potassium 4.1 Chloride 98 Carbon Dioxide 27.0 Anion Gap 12 BUN 55 H Creatinine 4.49 H Estim Creat Clear Calc 12.94 Est GFR (MDRD) Af Amer 13 L Est GFR (MDRD) Non-Af 11 L BUN/Creatinine Ratio 12.2 Glucose 188 H Calcium 8.8 POC Glucose 126 H 06/06/18 06/06/18 06/06/18 05:05 12:08 17:58 WBC RBC Hgb Hct MCV MCH MCHC RDW RDW Differential Plt Count MPV Immature Gran % (Auto) Neut % (Auto) Lymph % (Auto) [place] % (Auto) Eos % (Auto) Baso % (Auto) Absolute Neuts (auto) Absolute Lymphs (auto) Total Counted Diff Path Review Sodium Potassium Chloride Carbon Dioxide Anion Gap BUN Creatinine Estim Creat Clear Calc Est GFR (MDRD) Af Amer Est GFR (MDRD) Non-Af BUN/Creatinine Ratio Glucose Calcium POC Glucose 173 H 140 H 137 H 06/06/18 06/06/18 06/07/18 21:08 23:16 04:10 WBC 10.8 RBC 4.01 L Hgb 10.4 L Hct 33.1 L MCV 82.5 MCH 25.9 L MCHC 31.4 L RDW 14.7 H RDW Differential 43.4 Plt Count 319 MPV 8.1 Immature Gran % (Auto) 2.600 H Neut % (Auto) 69.1 Lymph % (Auto) 13.6 L [place] % (Auto) 11.8 H Eos % (Auto) 1.4 Baso % (Auto) 1.5 H Absolute Neuts (auto) 7.5 Absolute Lymphs (auto) 1.47 Total Counted Not Reportable Diff Path Review May foll Sodium Potassium Chloride Carbon Dioxide Anion Gap BUN Creatinine Estim Creat Clear Calc Est GFR (MDRD) Af Amer Est GFR (MDRD) Non-Af BUN/Creatinine Ratio Glucose Calcium POC Glucose 240 H 233 H 06/07/18 06/07/18 04:10 05:10 WBC RBC Hgb Hct MCV MCH MCHC RDW RDW Differential Plt Count MPV Immature Gran % (Auto) Neut % (Auto) Lymph % (Auto) [place] % (Auto) Eos % (Auto) Baso % (Auto) Absolute Neuts (auto) Absolute Lymphs (auto) Total Counted Diff Path Review Sodium 139 Potassium 3.9 Chloride 99 Carbon Dioxide 29.0 Anion Gap 11 BUN 41 H Creatinine 3.38 H Estim Creat Clear Calc 17.19 Est GFR (MDRD) Af Amer 18 L Est GFR (MDRD) Non-Af 15 L BUN/Creatinine Ratio 12.1 Glucose 190 H Calcium 8.3 L POC Glucose 192 H Clinical Impression(s) from Imaging Studies Chest X-Ray 05/23/18 15:15 IMPRESSION: Findings suggestive CHF with superimposed atelectasis and/or infiltrate in the right midlung. Electronically Signed: Royer Rowe MD at 15:56 EST , Service support , Chest X-Ray 05/24/18 10:30 IMPRESSION: Findings consistent with CHF. This appears worsening with areas of consolidation at the left lung base. Electronically Signed: Michael Braxton DO at 17:08 EST Tel [phone], Service support , KUB X-Ray 05/24/18 14:46 IMPRESSION: The tip of the orogastric tube is in the body of the stomach. Electronically Signed: Royer Rowe MD at 15:43 EST , Service support , Chest X-Ray 05/24/18 15:10 IMPRESSION: The tip of the endotracheal tube is at 6.3 cm proximal to the ehsan. Electronically Signed: Royer Rowe MD at 15:44 EST , Service support , Chest X-Ray 05/25/18 05:11 IMPRESSION: The tip of the endotracheal tube is at 2.4 sinus proximal to the ehsan. The remainder the examination is unchanged. Electronically Signed: Royer Rowe MD at 8:15 EST , Service support , Chest CT 05/25/18 09:38 IMPRESSION: Infiltrates in both lungs worse in the right upper lobe and both lower lobes. Electronically Signed: Royer Rowe MD at 11:32 EST , Service support , Chest X-Ray 05/26/18 10:28 IMPRESSION: Stable interval exam. Placement of right subclavian central venous catheter without evidence of pneumothorax Electronically Signed: Rocco Zepeda DO at 11:52 EST Tel , Service support , Chest X-Ray 05/28/18 05:55 IMPRESSION: Stable findings. Persistent bilateral pulmonary infiltrates, larger on the right. at 0514 Reported and signed by: West Saini MD Electronically Signed: West Saini, at 5:13 EST Tel , Service support , Chest X-Ray 05/28/18 15:06 IMPRESSION: All lines are in good position. Progressive bilateral infiltrations. Electronically Signed: Royer Rowe MD at 16:01 EST , Service support , Chest X-Ray 05/30/18 08:00 IMPRESSION: Stable examination. Electronically Signed: Royer Rowe MD at 13:52 EST , Service support , Chest X-Ray 06/04/18 08:44 IMPRESSION: All the support tubes are unchanged. Prior study, there has been improved aeration of both lungs as described. Electronically Signed: Royer Rowe MD at 13:50 EST , Service support , Chest X-Ray 06/04/18 17:15 Medical Necessity - Tobacco Use Smoking Status: Never smoker Tobacco Use: Non-smoker Assessment/Plan All Active Problems Chest pain (Acute) Acute respiratory failure with hypoxia (Acute) PNA (pneumonia) (Acute) Acute kidney injury (Acute) RECOMMENDATIONS: 1. Check coags as well this morning in preparation for PEG tube placement. 2. Continue to hold tube feeds for now. Basal insulin is also on hold at the current time. 3. Continue patient on full mechanical ventilatory support. 4. Continue hemodialysis per nephrology recommendations. 5. Continue bronchodilators 6. Continue antibiotics to complete treatment course. 7. Continue appropriate ICU prophylaxis 8. Await PEG and tracheostomy placement IMPRESSIONS: 1. Acute combined respiratory failure secondary to severe community-acquired pneumonia The patient has been on treatment for multifocal pneumonia, and although improving, continues to have a significant ventilator requirement. At this time, the patient's antibiotics will be continued to complete her treatment course. We will continue to wean her FiO2 and PEEP as tolerated. Given the patient's inability to be weaned from mechanical ventilation, she will be a candidate for both trach and PEG tube placement. There are tentative plans for PEG tube to be placed at the bedside today. ENT has been consulted to assist with plans for placement next week. 2. Acute kidney injury Likely secondary to ATN, as the patient was initially diuresed on admission to the hospital and also developed a component of hypotension on arrival to the ICU. Nephrology is currently following. The patient has been responding to hemodialysis support. The patient's temporary hemodialysis catheter was removed and a tunneled catheter was subsequently placed on June 04. Recommend continuing dialysis and volume optimization per nephrology recommendations. 3. Indeterminate troponin/acute on chronic diastolic heart failure Echocardiogram revealed no wall motion abnormalities. Nephrology is following to assist with volume management. 4. Morbid obesity/diabetes mellitus/anxiety/depression/PTSD Complicates care, management, recovery and prognosis. Continue Accu-Cheks and sliding scale insulin coverage. Tube feeds can be restarted once PEG tube is placed. TIME: 40 minutes of critical care time, independent of procedures, was spent addressing the patient's acute combined respiratory failure, severe community acquired pneumonia, acute kidney injury, diastolic heart failure with exacerbation, review of all data and collaboration with the care team. ([id number]) Code Visit 9xxxx: [id number] Critical care first hour
--- NOTE | 2018-06-07 06:56 | PN_ITS ---
Subjective: The patient was seen and examined at the bedside this morning. Events from the last 24 hours have been reviewed. The patient is currently afebrile, hemodynamically stable and maintaining appropriate oxygen saturations on assist control mode mechanical ventilation with an FiO2 of 40%. The patient was able to remain on spontaneous mode throughout yesterday. She did undergo hemodialysis with an additional 3+ liters of fluid removed. She is now overall net +3.8 L for the admission. Overnight, the patient did experience an episode of emesis. Her tube feeds were subsequently placed on hold, as she is scheduled to have bedside PEG tube placement later this morning. She failed her spontaneous breathing trial this morning due to hypoxia. The patient was evaluated by ENT yesterday as well, with plans for tracheostomy placement next week. Objective: The patient's most recent lab work, culture data and imaging studies have all been personally reviewed. Infectious workup was noted to be negative with the exception of a urine culture which was positive for Klebsiella pneumonia. Surface echocardiogram dated May 25 revealed evidence of stage I diastolic dysfunction with an ejection fraction of 55%. General: No apparent distress, - - Opens eyes to verbal stimulation. Currently tolerating assist control mode of mechanical ventilation without issue. No dyssynchrony noted. HEENT: Atraumatic, PERRLA, Normocephalic Oral: No Gingival or Mucosal Lesions/ Ulcerations, - - Endotracheal and OG tubes remain in place. Neck: Supple, No Nodes, Trachea Midline, - - Tunneled hemodialysis catheter and temporary triple-lumen catheter in place Lungs: No rhonchi, No wheeze, No rales, Diminished Cardiovascular: Regular rate, Regular Rhythm, Normal S1, Normal S2, No murmurs Abdomen: Bowel Sounds Present, Soft, Non Tender, Obese Extremities: No clubbing, No cyanosis, No edema Skin: - - No significant change from previous. Musculoskeletal: No Tenderness to Palpation of Joints or Extremities, No Muscle Wasting Lymphatic: No Cervical, Supraclavicular, or Inguinal Adenopathy Neurological: - - No focal neurological deficits. Remains CAM+ Psych/Mental Status: Flat Affect Vital Signs Temp Pulse Resp BP Pulse Ox 37.3 C H 88 16 116/80 93 06/07/18 00:00 06/07/18 06:00 06/07/18 06:00 06/07/18 06:00 06/07/18 06:00 Oxygen Flow Rate (L/min) 50 Oxygen Delivery Method Mechanical Ventilator Weight: 292 lb 12.382 oz Body Mass Index (BMI) 49.7 Finger Stick Blood Glucose 150 Intake and Output for Last 24 Hours 06/05/18 06/06/18 06/07/18 23:59 23:59 23:59 Intake Total 3377.4 / 3377.4 1709.7 / 1709.7 51.4 / 51.4 Output Total 8650 / 8650 3590 / 3590 Balance -5272.6 / -5272.6 -1880.3 / -1880.3 26.4 / 26.4 Labs (Last 48 Hours) 06/04/18 06/05/18 06/05/18 08:35 06:45 06:45 WBC 11.8 H RBC 3.69 L Hgb 9.8 L Hct 29.7 L MCV 80.5 L MCH 26.6 L MCHC 33.0 RDW 14.7 H RDW Differential 41.9 Plt Count 395 MPV 8.7 Immature Gran % (Auto) 2.500 H Neut % (Auto) 71.2 H Lymph % (Auto) 11.6 L [place] % (Auto) 11.7 H Eos % (Auto) 2.2 Baso % (Auto) 0.8 Absolute Neuts (auto) 8.4 H Absolute Lymphs (auto) 1.37 Total Counted Not Reportable Diff Path Review Reviewed Reviewed Sodium 134 L Potassium 4.5 Chloride 93 L Carbon Dioxide 21.0 Anion Gap 20 H BUN 92 H Creatinine 6.93 H Estim Creat Clear Calc 8.38 Est GFR (MDRD) Af Amer 8 L Est GFR (MDRD) Non-Af 7 L BUN/Creatinine Ratio 13.3 Glucose 219 H Calcium 8.9 POC Glucose 06/05/18 06/05/18 06/05/18 12:34 17:40 21:18 WBC RBC Hgb Hct MCV MCH MCHC RDW RDW Differential Plt Count MPV Immature Gran % (Auto) Neut % (Auto) Lymph % (Auto) [place] % (Auto) Eos % (Auto) Baso % (Auto) Absolute Neuts (auto) Absolute Lymphs (auto) Total Counted Diff Path Review Sodium Potassium Chloride Carbon Dioxide Anion Gap BUN Creatinine Estim Creat Clear Calc Est GFR (MDRD) Af Amer Est GFR (MDRD) Non-Af BUN/Creatinine Ratio Glucose Calcium POC Glucose 141 H 159 H 131 H 06/05/18 06/06/18 06/06/18 23:23 03:50 03:50 WBC 11.6 H RBC 3.74 L Hgb 9.6 L Hct 30.6 L MCV 81.8 MCH 25.7 L MCHC 31.4 L RDW 14.8 H RDW Differential 44.5 H Plt Count 305 MPV 8.7 Immature Gran % (Auto) 1.700 H Neut % (Auto) 73.0 H Lymph % (Auto) 11.1 L [place] % (Auto) 11.5 H Eos % (Auto) 1.9 Baso % (Auto) 0.8 Absolute Neuts (auto) 8.5 H Absolute Lymphs (auto) 1.29 Total Counted Not Reportable Diff Path Review Sodium 137 Potassium 4.1 Chloride 98 Carbon Dioxide 27.0 Anion Gap 12 BUN 55 H Creatinine 4.49 H Estim Creat Clear Calc 12.94 Est GFR (MDRD) Af Amer 13 L Est GFR (MDRD) Non-Af 11 L BUN/Creatinine Ratio 12.2 Glucose 188 H Calcium 8.8 POC Glucose 126 H 06/06/18 06/06/18 06/06/18 05:05 12:08 17:58 WBC RBC Hgb Hct MCV MCH MCHC RDW RDW Differential Plt Count MPV Immature Gran % (Auto) Neut % (Auto) Lymph % (Auto) [place] % (Auto) Eos % (Auto) Baso % (Auto) Absolute Neuts (auto) Absolute Lymphs (auto) Total Counted Diff Path Review Sodium Potassium Chloride Carbon Dioxide Anion Gap BUN Creatinine Estim Creat Clear Calc Est GFR (MDRD) Af Amer Est GFR (MDRD) Non-Af BUN/Creatinine Ratio Glucose Calcium POC Glucose 173 H 140 H 137 H 06/06/18 06/06/18 06/07/18 21:08 23:16 04:10 WBC 10.8 RBC 4.01 L Hgb 10.4 L Hct 33.1 L MCV 82.5 MCH 25.9 L MCHC 31.4 L RDW 14.7 H RDW Differential 43.4 Plt Count 319 MPV 8.1 Immature Gran % (Auto) 2.600 H Neut % (Auto) 69.1 Lymph % (Auto) 13.6 L [place] % (Auto) 11.8 H Eos % (Auto) 1.4 Baso % (Auto) 1.5 H Absolute Neuts (auto) 7.5 Absolute Lymphs (auto) 1.47 Total Counted Not Reportable Diff Path Review May foll Sodium Potassium Chloride Carbon Dioxide Anion Gap BUN Creatinine Estim Creat Clear Calc Est GFR (MDRD) Af Amer Est GFR (MDRD) Non-Af BUN/Creatinine Ratio Glucose Calcium POC Glucose 240 H 233 H 06/07/18 06/07/18 04:10 05:10 WBC RBC Hgb Hct MCV MCH MCHC RDW RDW Differential Plt Count MPV Immature Gran % (Auto) Neut % (Auto) Lymph % (Auto) [place] % (Auto) Eos % (Auto) Baso % (Auto) Absolute Neuts (auto) Absolute Lymphs (auto) Total Counted Diff Path Review Sodium 139 Potassium 3.9 Chloride 99 Carbon Dioxide 29.0 Anion Gap 11 BUN 41 H Creatinine 3.38 H Estim Creat Clear Calc 17.19 Est GFR (MDRD) Af Amer 18 L Est GFR (MDRD) Non-Af 15 L BUN/Creatinine Ratio 12.1 Glucose 190 H Calcium 8.3 L POC Glucose 192 H Clinical Impression(s) from Imaging Studies Chest X-Ray 05/23/18 15:15 IMPRESSION: Findings suggestive CHF with superimposed atelectasis and/or infiltrate in the right midlung. Electronically Signed: Royer Rowe MD at 15:56 EST , Service support , Chest X-Ray 05/24/18 10:30 IMPRESSION: Findings consistent with CHF. This appears worsening with areas of consolidation at the left lung base. Electronically Signed: Michael Braxton DO at 17:08 EST Tel [phone], Service support , KUB X-Ray 05/24/18 14:46 IMPRESSION: The tip of the orogastric tube is in the body of the stomach. Electronically Signed: Royer Rowe MD at 15:43 EST , Service support , Chest X-Ray 05/24/18 15:10 IMPRESSION: The tip of the endotracheal tube is at 6.3 cm proximal to the ehsan. Electronically Signed: Royer Rowe MD at 15:44 EST , Service support , Chest X-Ray 05/25/18 05:11 IMPRESSION: The tip of the endotracheal tube is at 2.4 sinus proximal to the ehsan. The remainder the examination is unchanged. Electronically Signed: Royer Rowe MD at 8:15 EST , Service support , Chest CT 05/25/18 09:38 IMPRESSION: Infiltrates in both lungs worse in the right upper lobe and both lower lobes. Electronically Signed: Royer Rowe MD at 11:32 EST , Service support , Chest X-Ray 05/26/18 10:28 IMPRESSION: Stable interval exam. Placement of right subclavian central venous catheter without evidence of pneumothorax Electronically Signed: Rocco Zepeda DO at 11:52 EST Tel , Service support , Chest X-Ray 05/28/18 05:55 IMPRESSION: Stable findings. Persistent bilateral pulmonary infiltrates, larger on the right. at 0514 Reported and signed by: West Saini MD Electronically Signed: West Saini, at 5:13 EST Tel , Service support , Chest X-Ray 05/28/18 15:06 IMPRESSION: All lines are in good position. Progressive bilateral infiltrations. Electronically Signed: Royer Rowe MD at 16:01 EST , Service support , Chest X-Ray 05/30/18 08:00 IMPRESSION: Stable examination. Electronically Signed: Royer Rowe MD at 13:52 EST , Service support , Chest X-Ray 06/04/18 08:44 IMPRESSION: All the support tubes are unchanged. Prior study, there has been improved aeration of both lungs as described. Electronically Signed: Royer Rowe MD at 13:50 EST , Service support , Chest X-Ray 06/04/18 17:15 Medical Necessity - Tobacco Use Smoking Status: Never smoker Tobacco Use: Non-smoker Assessment/Plan All Active Problems Chest pain (Acute) Acute respiratory failure with hypoxia (Acute) PNA (pneumonia) (Acute) Acute kidney injury (Acute) RECOMMENDATIONS: 1. Check coags as well this morning in preparation for PEG tube placement. 2. Continue to hold tube feeds for now. Basal insulin is also on hold at the current time. 3. Continue patient on full mechanical ventilatory support. 4. Continue hemodialysis per nephrology recommendations. 5. Continue bronchodilators 6. Continue antibiotics to complete treatment course. 7. Continue appropriate ICU prophylaxis 8. Await PEG and tracheostomy placement IMPRESSIONS: 1. Acute combined respiratory failure secondary to severe community-acquired pneumonia The patient has been on treatment for multifocal pneumonia, and although improving, continues to have a significant ventilator requirement. At this time, the patient's antibiotics will be continued to complete her treatment course. We will continue to wean her FiO2 and PEEP as tolerated. Given the patient's inability to be weaned from mechanical ventilation, she will be a candidate for both trach and PEG tube placement. There are tentative plans for PEG tube to be placed at the bedside today. ENT has been consulted to assist with plans for placement next week. 2. Acute kidney injury Likely secondary to ATN, as the patient was initially diuresed on admission to the hospital and also developed a component of hypotension on arrival to the ICU. Nephrology is currently following. The patient has been responding to hemodialysis support. The patient's temporary hemodialysis catheter was removed and a tunneled catheter was subsequently placed on June 04. Recommend continuing dialysis and volume optimization per nephrology recommendations. 3. Indeterminate troponin/acute on chronic diastolic heart failure Echocardiogram revealed no wall motion abnormalities. Nephrology is following to assist with volume management. 4. Morbid obesity/diabetes mellitus/anxiety/depression/PTSD Complicates care, management, recovery and prognosis. Continue Accu-Cheks and sliding scale insulin coverage. Tube feeds can be restarted once PEG tube is placed. TIME: 40 minutes of critical care time, independent of procedures, was spent addressing the patient's acute combined respiratory failure, severe community acquired pneumonia, acute kidney injury, diastolic heart failure with exacerbation, review of all data and collaboration with the care team. ([id number]) Code Visit [id number]: [id number] Critical care first hour
[2018-06-07 07:15] LABS: International Normalized Ratio 1.1
[2018-06-07] MEDS: Ipratropium/Albuterol Sulfate 3 ML AMPUL.NEB INHALATION ×4 (07:22→19:04)
--- NOTE | 2018-06-07 08:24 | PCM.PN.HOSP ---
Patient Problems: Active and Suspected Problems Chest pain (Acute) Acute respiratory failure with hypoxia (Acute) PNA (pneumonia) (Acute) Acute kidney injury (Acute) Subjective: Patient is intubated, on vent support. No high-grade fever. T-max 99.2 Fahrenheit. Patient was intubated on 05/24 2018 On assist control 40% FiO2/5 PEEP. Patient is on hemodialysis. Scheduled for PEG tube insertion today. ENT consulted for tracheostomy. Vitals/I&O's: Vital Signs Temp Pulse Resp BP Pulse Ox 99.2 F H 87 14 116/80 92 06/07/18 00:00 06/07/18 07:35 06/07/18 07:35 06/07/18 06:00 06/07/18 07:33 Oxygen Flow Rate (L/min) 50 Oxygen Delivery Method Mechanical Ventilator Weight: 292 lb 12.382 oz Body Mass Index (BMI) 49.7 Finger Stick Blood Glucose 150 Intake and Output for Last 24 Hours 06/05/18 06/06/18 06/07/18 23:59 23:59 23:59 Intake Total 3377.4 / 3377.4 1709.7 / 1709.7 51.4 / 51.4 Output Total 8650 / 8650 3590 / 3590 55 / 55 Balance -5272.6 / -5272.6 -1880.3 / -1880.3 -3.6 / -3.6 General: - - Sedated. On propofol drip HEENT: Atraumatic, PERRLA, EOMI, Normocephalic Oral: Dry Mucosa, - - ET tube Neck: Supple, No JVD, Negative Carotid Bruits Lungs: No rhonchi, No wheeze, Diminished, - - Vent support Cardiovascular: Regular rate, Normal S1, Normal S2, No murmurs Abdomen: Bowel Sounds Present, Soft, Non Tender, Non-Distended, Hypoactive Bowel Sounds, - - Tube feed is 100 Extremities: Edema Skin: No rashes, No breakdown Musculoskeletal: Arthritic Changes, Muscle Wasting Neurological: Cranial nerves II-XII grossly intact, - - Sedated. Laboratory Results 06/04/18 08:35: Diff Path Review Reviewed 06/05/18 06:45: Diff Path Review Reviewed 06/06/18 12:08: POC Glucose 140 H 06/06/18 17:58: POC Glucose 137 H 06/06/18 21:08: POC Glucose 240 H 06/06/18 23:16: POC Glucose 233 H 06/07/18 04:10: WBC 10.8, RBC 4.01 L, Hgb 10.4 L, Hct 33.1 L, MCV 82.5, MCH 25.9 L, MCHC 31.4 L, RDW 14.7 H, RDW Differential 43.4, Plt Count 319, MPV 8.1, Immature Gran % (Auto) 2.600 H, Neut % (Auto) 69.1, Lymph % (Auto) 13.6 L, [place] % (Auto) 11.8 H, Eos % (Auto) 1.4, Baso % (Auto) 1.5 H, Absolute Neuts (auto) 7.5, Absolute Lymphs (auto) 1.47, Total Counted Not Reportable, Diff Path Review August06/07/18 04:10: Sodium 139, Potassium 3.9, Chloride 99, Carbon Dioxide 29.0, Anion Gap 11, BUN 41 H, Creatinine 3.38 H, Estim Creat Clear Calc 17.19, Est GFR (MDRD) Af Amer 18 L, Est GFR (MDRD) Non-Af 15 L, BUN/Creatinine Ratio 12.1, Glucose 190 H, Calcium 8.3 L 06/07/18 05:10: POC Glucose 192 H 06/07/18 07:00: PT 14.0, INR 1.1 Current Medications Acetaminophen (Tylenol Liquid) 650 mg GT Q4H PRN PRN PRN Reason: T > 100.5 F Last Admin: 05/25/18 01:27 Dose: 650 mg Albuterol Sulfate (Ventolin Aerosols) 2.5 mg INHALATION Q2H PRN PRN PRN Reason: SOB &/OR WHEEZING Last Admin: 06/04/18 18:40 Dose: 2.5 mg Albuterol/Ipratropium (Duoneb) 3 ml INHALATION Q4HWA.RT RUBI Last Admin: 06/06/18 18:48 Dose: 3 ml Calamine/Phenol (Calmoseptine Ointment) 1 applic TOPICAL BID RUBI; Protocol Last Admin: 06/06/18 21:06 Dose: 1 applicatio Chlorhexidine Gluconate () 1 each TOPICAL DAILY RUBI Last Admin: 06/07/18 03:24 Dose: 1 each Chlorhexidine Gluconate () 15 ml PO BID [facility] Last Admin: 06/06/18 21:06 Dose: 15 ml Dextrose (D50w Syringe) 0 gm IV X1 PRN; Protocol PRN Reason: Hypoglycemia Famotidine (Pepcid) 20 mg GT DAILY [facility] Last Admin: 06/06/18 10:34 Dose: 20 mg Glucagon () 1 mg IM .X1 PRN PRN Reason: Hypoglycemia Heparin Sodium (Porcine) (Heparin Na) 5,000 unit SC Q8 [facility] Last Admin: 06/06/18 05:07 Dose: 5,000 unit Heparin Sodium (Porcine) () 2,500 units IV UD PRN PRN Reason: HEPARIN FLUSH Last Admin: 06/05/18 13:06 Dose: 2,500 units Sodium Chloride () 250 mls @ 15 mls/hr IV .[id number] PRN PRN Reason: SALINE FLUSH Last Admin: 06/05/18 09:48 Dose: 15 mls/hr Sodium Chloride () 250 mls @ 15 mls/hr IV .[id number] PRN PRN Reason: SALINE FLUSH Sodium Chloride () 250 mls @ 15 mls/hr IV .[id number] PRN PRN Reason: SALINE FLUSH Sodium Chloride () 250 mls @ 15 mls/hr IV .[id number] PRN PRN Reason: SALINE FLUSH Fentanyl () 100 mls @ 15 mls/hr IV .Q20H [facility] Last Admin: 06/07/18 03:24 Dose: 15 mls/hr Enteral Nutritional Formula (Vital Af 1.2 Glenn Liquid) 1,000 mls @ 60 mls/hr GT .[id number] [facility] Last Admin: 06/06/18 18:03 Dose: 60 mls/hr Levofloxacin (Levaquin Iv) 500 mg in 100 mls @ 100 mls/hr IV Q48 [facility] Last Admin: 06/05/18 13:07 Dose: 100 mls/hr Propofol (Diprivan) 1,000 mg in 100 mls @ 8.292 mls/hr CONT INF .Q12H [facility] Last Admin: 06/07/18 05:46 Dose: Not Given Cefazolin Sodium 2 gm/ Sodium (Chloride) 110 mls @ 150 mls/hr IV X1 ONE Stop: 06/07/18 11:43 Insulin Glargine (Lantus (Bkc)) 60 units SC BID [facility] Last Admin: 06/06/18 21:08 Dose: 60 u Insulin Human Lispro (Humalog Kwikpen (Bk)) 0 unit SC Q6 [facility]; Protocol Last Admin: 06/07/18 06:44 Dose: Not Given Nystatin (Mycostatin Powder) 1 applic TOPICAL TID [facility]; Protocol Last Admin: 06/07/18 05:10 Dose: 1 applic Ondansetron HCl (Zofran) 4 mg IV Q4H PRN PRN PRN Reason: NAUSEA/VOMITING Last Admin: 06/07/18 05:05 Dose: 4 mg Polyethylene Glycol (Miralax) 17 gm GT DAILY [facility] Last Admin: 06/06/18 10:33 Dose: Not Given Risperidone (Risperdal) 2 mg GT BID [facility] Last Admin: 06/06/18 21:06 Dose: 2 mg Risperidone (Risperdal) 0.5 mg GT BID [facility] Last Admin: 06/06/18 21:06 Dose: 0.5 mg Sodium Chloride () 5 - 15 ml IV UD PRN PRN Reason: SALINE FLUSH Last Admin: 06/07/18 05:05 Dose: 10 ml Sodium Chloride () 10 ml IV UD PRN PRN Reason: Dialysis Catheter Flush Medical Necessity - Tobacco Use Smoking Status: Never smoker Tobacco Use: Non-smoker Assessment/Plan All Active Problems Chest pain (Acute) Acute respiratory failure with hypoxia (Acute) PNA (pneumonia) (Acute) Acute kidney injury (Acute) This is a 57-year-old female who is being admitted for acute hypoxic and hypercarbic respiratory failure. Initially, patient was put on BiPAP on PCU but later on was intubated and transferred to ICU on 05/24/2018. Blood cultures x2, urine culture, respiratory panel ordered. Patient also had chest pain on and off, on exertion and relieved with rest, typical angina but had negative cardiac cath in 2013. Serial troponin enzymes showed first 1 0.05 indeterminant but rest negative. ECHO reported no wall motion abnormality. 1. Acute hypoxic and hypercapnic respiratory failure due to severe multifocal community acquired pneumonia remains intubated and sedated. Shunt failed spontaneous breathing trial and ENT Dr. Rice consulted for tracheostomy. Patient was intubated on 05/24/2018. Discussed with ENT and plan is for tracheostomy next week. Scheduled for PEG tube today Blood cultures showed no growth and urine grew Klebsiella pneumonia. now on IV cefazolin and IV levaquin. Awaiting guardianship by estate attorney. Awaiting guardianship. on propofol and fentanyl for sedation 2. Severe multifocal community-acquired pneumonia: Sputum culture showed mixed normal respiratory addison with no Selin. 3. Acute renal failure, most probably secondary to ATN: Nephrology on board. had tunnelled dialysis catheter placed for snf dialysis Patient is currently dialysis dependent. 4. Acute on chronic diastolic heart failure 2D echo showed normal left ventricular size and function with EF of 55% in stage I diastolic dysfunction. Requiring dialysis for fluid removal. Urine output is not adequate 65 mL yesterday. About 3.5 L was fluid removed by dialysis. Anuric 5. Type 2 diabetes mellitus: On Lantus 60IU bid and insulin sliding scale. 6. Depression and anxiety, PTSD, morbid obesity: Multiple comorbidities complicates the present care and expect difficult and delay recovery DVT prophylaxis: Heparin Code Visit Inpatient E&M: 46010 [facility] L[facility]
--- NOTE | 2018-06-07 08:28 | PN_ITS ---
Patient Problems: Active and Suspected Problems Chest pain (Acute) Acute respiratory failure with hypoxia (Acute) PNA (pneumonia) (Acute) Acute kidney injury (Acute) Subjective: Patient is intubated, on vent support. No high-grade fever. T-max 99.2 Fahrenheit. Patient was intubated on 05/24 2018 On assist control 40% FiO2/5 PEEP. Patient is on hemodialysis. Scheduled for PEG tube insertion today. ENT consulted for tracheostomy. Vitals/I&O's: Vital Signs Temp Pulse Resp BP Pulse Ox 99.2 F H 87 14 116/80 92 06/07/18 00:00 06/07/18 07:35 06/07/18 07:35 06/07/18 06:00 06/07/18 07:33 Oxygen Flow Rate (L/min) 50 Oxygen Delivery Method Mechanical Ventilator Weight: 292 lb 12.382 oz Body Mass Index (BMI) 49.7 Finger Stick Blood Glucose 150 Intake and Output for Last 24 Hours 06/05/18 06/06/18 06/07/18 23:59 23:59 23:59 Intake Total 3377.4 / 3377.4 1709.7 / 1709.7 51.4 / 51.4 Output Total 8650 / 8650 3590 / 3590 55 / 55 Balance -5272.6 / -5272.6 -1880.3 / -1880.3 -3.6 / -3.6 General: - - Sedated. On propofol drip HEENT: Atraumatic, PERRLA, EOMI, Normocephalic Oral: Dry Mucosa, - - ET tube Neck: Supple, No JVD, Negative Carotid Bruits Lungs: No rhonchi, No wheeze, Diminished, - - Vent support Cardiovascular: Regular rate, Normal S1, Normal S2, No murmurs Abdomen: Bowel Sounds Present, Soft, Non Tender, Non-Distended, Hypoactive Bowel Sounds, - - Tube feed is 100 Extremities: Edema Skin: No rashes, No breakdown Musculoskeletal: Arthritic Changes, Muscle Wasting Neurological: Cranial nerves II-XII grossly intact, - - Sedated. Laboratory Results 06/04/18 08:35: Diff Path Review Reviewed 06/05/18 06:45: Diff Path Review Reviewed 06/06/18 12:08: POC Glucose 140 H 06/06/18 17:58: POC Glucose 137 H 06/06/18 21:08: POC Glucose 240 H 06/06/18 23:16: POC Glucose 233 H 06/07/18 04:10: WBC 10.8, RBC 4.01 L, Hgb 10.4 L, Hct 33.1 L, MCV 82.5, MCH 25.9 L, MCHC 31.4 L, RDW 14.7 H, RDW Differential 43.4, Plt Count 319, MPV 8.1, Immature Gran % (Auto) 2.600 H, Neut % (Auto) 69.1, Lymph % (Auto) 13.6 L, Reynolds % (Auto) 11.8 H, Eos % (Auto) 1.4, Baso % (Auto) 1.5 H, Absolute Neuts (auto) 7.5, Absolute Lymphs (auto) 1.47, Total Counted Not Reportable, Diff Path Review August06/07/18 04:10: Sodium 139, Potassium 3.9, Chloride 99, Carbon Dioxide 29.0, Anion Gap 11, BUN 41 H, Creatinine 3.38 H, Estim Creat Clear Calc 17.19, Est GFR (MDRD) Af Amer 18 L, Est GFR (MDRD) Non-Af 15 L, BUN/Creatinine Ratio 12.1, Glucose 190 H, Calcium 8.3 L 06/07/18 05:10: POC Glucose 192 H 06/07/18 07:00: PT 14.0, INR 1.1 Current Medications Acetaminophen (Tylenol Liquid) 650 mg GT Q4H PRN PRN PRN Reason: T > 100.5 F Last Admin: 05/25/18 01:27 Dose: 650 mg Albuterol Sulfate (Ventolin Aerosols) 2.5 mg INHALATION Q2H PRN PRN PRN Reason: SOB &/OR WHEEZING Last Admin: 06/04/18 18:40 Dose: 2.5 mg Albuterol/Ipratropium (Duoneb) 3 ml INHALATION Q4HWA.RT RUBI Last Admin: 06/06/18 18:48 Dose: 3 ml Calamine/Phenol (Calmoseptine Ointment) 1 applic TOPICAL BID RUBI; Protocol Last Admin: 06/06/18 21:06 Dose: 1 applicatio Chlorhexidine Gluconate () 1 each TOPICAL DAILY RUBI Last Admin: 06/07/18 03:24 Dose: 1 each Chlorhexidine Gluconate () 15 ml PO BID [facility] Last Admin: 06/06/18 21:06 Dose: 15 ml Dextrose (D50w Syringe) 0 gm IV X1 PRN; Protocol PRN Reason: Hypoglycemia Famotidine (Pepcid) 20 mg GT DAILY [facility] Last Admin: 06/06/18 10:34 Dose: 20 mg Glucagon () 1 mg IM .X1 PRN PRN Reason: Hypoglycemia Heparin Sodium (Porcine) (Heparin Na) 5,000 unit SC Q8 [facility] Last Admin: 06/06/18 05:07 Dose: 5,000 unit Heparin Sodium (Porcine) () 2,500 units IV UD PRN PRN Reason: HEPARIN FLUSH Last Admin: 06/05/18 13:06 Dose: 2,500 units Sodium Chloride () 250 mls @ 15 mls/hr IV .[id number] PRN PRN Reason: SALINE FLUSH Last Admin: 06/05/18 09:48 Dose: 15 mls/hr Sodium Chloride () 250 mls @ 15 mls/hr IV .[id number] PRN PRN Reason: SALINE FLUSH Sodium Chloride () 250 mls @ 15 mls/hr IV .[id number] PRN PRN Reason: SALINE FLUSH Sodium Chloride () 250 mls @ 15 mls/hr IV .[id number] PRN PRN Reason: SALINE FLUSH Fentanyl () 100 mls @ 15 mls/hr IV .Q20H [facility] Last Admin: 06/07/18 03:24 Dose: 15 mls/hr Enteral Nutritional Formula (Vital Af 1.2 Glenn Liquid) 1,000 mls @ 60 mls/hr GT .[id number] [facility] Last Admin: 06/06/18 18:03 Dose: 60 mls/hr Levofloxacin (Levaquin Iv) 500 mg in 100 mls @ 100 mls/hr IV Q48 [facility] Last Admin: 06/05/18 13:07 Dose: 100 mls/hr Propofol (Diprivan) 1,000 mg in 100 mls @ 8.292 mls/hr CONT INF .Q12H [facility] Last Admin: 06/07/18 05:46 Dose: Not Given Cefazolin Sodium 2 gm/ Sodium (Chloride) 110 mls @ 150 mls/hr IV X1 ONE Stop: 06/07/18 11:43 Insulin Glargine (Lantus (Bkc)) 60 units SC BID [facility] Last Admin: 06/06/18 21:08 Dose: 60 u Insulin Human Lispro (Humalog Kwikpen (Bk)) 0 unit SC Q6 [facility]; Protocol Last Admin: 06/07/18 06:44 Dose: Not Given Nystatin (Mycostatin Powder) 1 applic TOPICAL TID [facility]; Protocol Last Admin: 06/07/18 05:10 Dose: 1 applic Ondansetron HCl (Zofran) 4 mg IV Q4H PRN PRN PRN Reason: NAUSEA/VOMITING Last Admin: 06/07/18 05:05 Dose: 4 mg Polyethylene Glycol (Miralax) 17 gm GT DAILY [facility] Last Admin: 06/06/18 10:33 Dose: Not Given Risperidone (Risperdal) 2 mg GT BID [facility] Last Admin: 06/06/18 21:06 Dose: 2 mg Risperidone (Risperdal) 0.5 mg GT BID [facility] Last Admin: 06/06/18 21:06 Dose: 0.5 mg Sodium Chloride () 5 - 15 ml IV UD PRN PRN Reason: SALINE FLUSH Last Admin: 06/07/18 05:05 Dose: 10 ml Sodium Chloride () 10 ml IV UD PRN PRN Reason: Dialysis Catheter Flush Medical Necessity - Tobacco Use Smoking Status: Never smoker Tobacco Use: Non-smoker Assessment/Plan All Active Problems Chest pain (Acute) Acute respiratory failure with hypoxia (Acute) PNA (pneumonia) (Acute) Acute kidney injury (Acute) This is a 57-year-old female who is being admitted for acute hypoxic and hypercarbic respiratory failure. Initially, patient was put on BiPAP on PCU but later on was intubated and transferred to ICU on 05/24/2018. Blood cultures x2, urine culture, respiratory panel ordered. Patient also had chest pain on and off, on exertion and relieved with rest, typical angina but had negative cardiac cath in 2013. Serial troponin enzymes showed first 1 0.05 indeterminant but rest negative. ECHO reported no wall motion abnormality. 1. Acute hypoxic and hypercapnic respiratory failure due to severe multifocal community acquired pneumonia * remains intubated and sedated. Shunt failed spontaneous breathing trial and ENT Dr. Rice consulted for tracheostomy. Patient was intubated on 05/24/2018. Discussed with ENT and plan is for tracheostomy next week. Scheduled for PEG tube today * Blood cultures showed no growth and urine grew Klebsiella pneumonia. * now on IV cefazolin and IV levaquin. * Awaiting guardianship by assistant county attorney. Awaiting guardianship. * on propofol and fentanyl for sedation 2. Severe multifocal community-acquired pneumonia: Sputum culture showed mixed normal respiratory addison with no Selin. 3. Acute renal failure, most probably secondary to ATN: * Nephrology on board. * had tunnelled dialysis catheter placed for alf dialysis * Patient is currently dialysis dependent. 4. Acute on chronic diastolic heart failure * 2D echo showed normal left ventricular size and function with EF of 55% in stage I diastolic dysfunction. * Requiring dialysis for fluid removal. Urine output is not adequate 65 mL yesterday. About 3.5 L was fluid removed by dialysis. Anuric 5. Type 2 diabetes mellitus: On Lantus 60IU bid and insulin sliding scale. 6. Depression and anxiety, PTSD, morbid obesity: Multiple comorbidities complicates the present care and expect difficult and delay recovery DVT prophylaxis: Heparin Code Visit Inpatient E&M: 22104 [facility] Hosp L3
--- NOTE | 2018-06-07 09:25 | CASEMGMT ---
GASTON participated in ICU rounds this morning. Pt did not pass the weaning trial this morning and remains on the vent at this time. Pt will have a peg tube placed at 11:30am today. The hearing for guardianship beyond the 72 hours granted to Hunter Rice is to be today. GASTON will check in w/Vandana Dwayne this afternoon regarding the status of this. EVA Bustos, ACCOUNTS RECEIVABLE ACCOUNTANT
[2018-06-07] MEDS: Alteplase 2 MG/2 ML Vial IV (09:33)
[2018-06-07] MEDS: Menthol/Lanolin/Calamine/Znox 113 GM Tube 1 APPLIC TOPICAL ×2 (09:34→21:42)
[2018-06-07] MEDS: Chlorhexidine 15 ML PO ×2 (09:34→21:42)
[2018-06-07 09:56] LABS: Bedside Glucose 204 mg/dL (70-110)
[2018-06-07] MEDS: levoFLOXacin IV 500 MG/100 ML BAG 100 MG IV (10:08)
[2018-06-07] MEDS: 0.9% NaCl IVPB Med Flush (250 mL) 15 ML IV (10:09)
--- NOTE | 2018-06-07 10:34 | CASEMGMT ---
RN CM NOTE: Call placed to Adrienne @ [facility] and given update. Made aware PEG is still scheduled for today, that pt failed spontaneous breathing trial today, and plans are for trach placement next Monday or Monday. Gracia MURPHYN RN CM
--- NOTE | 2018-06-07 10:36 | CASEMGMT ---
Addendum entered by Terra Tran 06/07/18 12:46: SW called Hunter Rice, message left inquiring about the guardianship hearing for this pt today. EVA Bustos, IMPORT EXPORT MANAGER Original Note: SW received a call from pt's aunt Mary Grace Peterson, asking how pt is doing. SW gave a general update to aunt, let her know we are working on getting a guardian. EVA Bustos, IMPORT EXPORT MANAGER
--- NOTE | 2018-06-07 11:40 | NURSING ---
1130, Dr. Luke, Dr. Corbin present w/EGD staff in pt room 1140 50mcq fentanyl and 50mcq propofol IVP per Dr. Corbin HR 81 R 12 SpO2 93% BP 101/63 1145 100mcq fentanyl and 50mcq propofol per Dr Corbin HR 87 R 12 SpO2 93% BP 120/78 1146 SpO2 86% O2 increased to 60% on vent per Dr. Corbin 1148 SpO2 91% PEG 6cm at skin, dressed per EGD staff 1150 HR77 R12 SpO2 93 BP 105/58 1155 HR 76 R 12 SpO2 95 BP 104/59 1200 HR 80 R 14 SpO2 96 BP 106/64 1205 HR 84 R 14 SpO2 97 BP 109/63
[2018-06-07] MEDS: Propofol 200 MG/20 ML Vial 100 MG IV BOLUS (11:50)
[2018-06-07] MEDS: fentaNYL 100 MCG/2 ML Ampul 75 MCG IV (11:50)
--- NOTE | 2018-06-07 11:55 | PCM.OPRPT ---
Problem List (1) Acute kidney injury Status: Acute (2) Acute respiratory failure with hypoxia Status: Acute Report of Operation Date of Procedure: 06/07/18 Pre-Operative Diagnosis: 1. Acute kidney injury. 2. Acute respiratory failure with hypoxia and failed extubation. Post-Operative Diagnosis: Same Surgery/Procedure Performed:: Percutaneous endoscopic gastrostomy tube placement Type of Anesthesia:: Local MAC Anesthesiologist: Aiden Corbin Specimen's removed: none Description of Procedure: Patient was in intensive care room 6. She was on a ventilator. Dr. Corbin gave appropriate anesthesia. The Olympus scope was inserted in the back of the oropharynx and directed down through the esophagus and into the stomach and into the duodenum without difficulty operative findings duodenum normal appearance no signs of ulcers #2 stomach mild gastritis was identified looking more like trauma secondary to NG tube decompression #3 esophagus looked normal without signs of lesions. The stomach was inflated with appropriate palpation we identified the closest distance from the skin to the stomach. The abdomen was prepped with chlorhexidine. 1% lidocaine plain was injected. A skin kelly was made. Angiocath needle was then placed through the subcutaneous tissues into the stomach and grabbed with the last 2. A guidewire was placed through the angiocatheter and grasped with the lasso and brought back through the oropharynx. Ponsky pull-through PEG tube was then hooked to the guidewire and then the PEG tube was pulled from the oropharynx out through the abdominal wall without difficulty laparoscope was reinserted photograph was obtained showing it to be in good placement with the stomach. T-bar was placed to approximately 6 cm. Was applied. The patient tolerated the procedure well. - Admit VTE Documentation VTE Present on Admission: No VTE Mechan Device Prophylaxis: SCD's VTE Pharm Prophylaxis ordered?: No Reason prophylaxis not ordered:: Treatment Not Indicated
--- NOTE | 2018-06-07 12:05 | PCM.OP.PRO ---
Procedure Report Date of Procedure: 06/07/18 CONSCIOUS SEDATION REPORT DATE OF SERVICE: June 07, 2018 BRIEF HISTORY OF PRESENT ILLNESS: The patient is a 57-year-old female who initially presented to the ICU in acute respiratory failure due to severe community-acquired pneumonia. She subsequently went on to develop acute kidney injury and is now hemodialysis dependent. She has been unable to be weaned from mechanical ventilatory support. Therefore, the decision has been made to proceed with percutaneous endoscopic gastrostomy tube placement. I was asked to provide bedside moderate sedation for patient comfort during the procedure. PHYSICAL EXAMINATION: VITAL SIGNS: Reviewed and were acceptable. GENERAL: The patient is an obese female, currently intubated and mechanically ventilated. HEENT: Normocephalic, atraumatic. Endotracheal tube currently in place CHEST: S1, S2, regular. No murmurs, rubs or gallops were noted. LUNGS: Diminished to auscultation bilaterally without appreciable wheezes, rales or rhonchi. ABDOMEN: Soft, nontender, nondistended. Positive bowel sounds. Obese. EXTREMITIES: There is no clubbing, cyanosis or edema. ASA Class: III DESCRIPTION OF PROCEDURE: At 1140, the patient was given her first bolus of fentanyl and propofol. She was monitored under my direct supervision until 1150. I personally spent 10 minutes at the bedside providing sedation with propofol and fentanyl for percutaneous endoscopic gastrostomy tube placement by Dr. Luke. In total, the patient received 100 mg of propofol and 150 mcg of fentanyl throughout the procedure. Vital signs were monitored continuously throughout the procedure. The patient tolerated the procedure well without complication. COMPLICATIONS: None Code Visit 9xxxx: Other Procedure See Report - [id number], separate billable procedure
[2018-06-07] MEDS: Cefazolin 2 GM in 0.9% Normal Saline 100 ML IV (12:14)
[2018-06-07] MEDS: Insulin Lispro 100 UNIT/ML INSULN.PEN SC (12:26)
--- NOTE | 2018-06-07 12:44 | NURSING ---
1130, Dr. Luke, Dr. Corbin present w/EGD staff in pt room 1140 25mcq fentanyl and 50mg propofol IVP per Dr. Corbin HR 81 R 12 SpO2 93% BP 101/63 1145 50mcq fentanyl and 50mg propofol per Dr Corbin HR 87 R 12 SpO2 93% BP 120/78 1146 SpO2 86% O2 increased to 60% on vent per Dr. Corbin 1148 SpO2 91% PEG 6cm at skin, dressed per EGD staff 1150 HR77 R12 SpO2 93 BP 105/58 1155 HR 76 R 12 SpO2 95 BP 104/59 1200 HR 80 R 14 SpO2 96 BP 106/64 1205 HR 84 R 14 SpO2 97 BP 109/63
--- NOTE | 2018-06-07 13:05 | PCM.PN.REN ---
Patient Problems: Active and Suspected Problems Chest pain (Acute) Acute respiratory failure with hypoxia (Acute) PNA (pneumonia) (Acute) Acute kidney injury (Acute) Subjective: s/p PEG tube Trach likely next week - Physical Exam HEENT: Atraumatic, PERRLA, EOMI, Normocephalic Neck: Supple, No JVD, Negative Carotid Bruits Lungs: Clear to auscultation, Normal air movement Cardiovascular: Regular rate, No murmurs Abdomen: Bowel Sounds Present, Soft, Non Tender Extremities: No edema, Capillary Refill Less than 3 Seconds Skin: No rashes, No breakdown Musculoskeletal: No Tenderness to Palpation of Joints or Extremities Vital Signs Temp Pulse Resp BP Pulse Ox 99.6 F H 86 20 H 107/63 95 06/07/18 12:00 06/07/18 13:00 06/07/18 13:00 06/07/18 13:00 06/07/18 13:00 Oxygen Flow Rate (L/min) 50 Oxygen Delivery Method Mechanical Ventilator Weight: 132.8 kg Body Mass Index (BMI) 49.7 Finger Stick Blood Glucose 150 Intake and Output for Last 24 Hours 06/05/18 06/06/18 06/07/18 23:59 23:59 23:59 Intake Total 3377.4 / 3377.4 1709.7 / 1709.7 274.4 / 274.4 Output Total 8650 / 8650 3590 / 3590 135 / 135 Balance -5272.6 / -5272.6 -1880.3 / -1880.3 139.4 / 139.4 Laboratory Tests Past 24 Hrs 06/07/18 06/07/18 06/07/18 04:10 04:10 07:00 WBC 10.8 RBC 4.01 L Hgb 10.4 L Hct 33.1 L MCV 82.5 MCH 25.9 L MCHC 31.4 L RDW 14.7 H RDW Differential 43.4 Plt Count 319 MPV 8.1 Immature Gran % (Auto) 2.600 H Neut % (Auto) 69.1 Lymph % (Auto) 13.6 L Randall % (Auto) 11.8 H Eos % (Auto) 1.4 Baso % (Auto) 1.5 H Absolute Neuts (auto) 7.5 Absolute Lymphs (auto) 1.47 Total Counted Not Reportable Diff Path Review May foll PT 14.0 INR 1.1 Sodium 139 Potassium 3.9 Chloride 99 Carbon Dioxide 29.0 Anion Gap 11 BUN 41 H Creatinine 3.38 H Estim Creat Clear Calc 17.19 Est GFR (MDRD) Af Amer 18 L Est GFR (MDRD) Non-Af 15 L BUN/Creatinine Ratio 12.1 Glucose 190 H Calcium 8.3 L POC Glucose 06/07/18 06/07/18 06/06/18 09:38 05:10 23:16 POC Glucose 204 H 192 H 233 H 06/06/18 06/06/18 21:08 17:58 POC Glucose 240 H 137 H Medical Necessity - Tobacco Use Smoking Status: Never smoker Tobacco Use: Non-smoker Assessment/Plan All Active Problems Chest pain (Acute) Acute respiratory failure with hypoxia (Acute) PNA (pneumonia) (Acute) Acute kidney injury (Acute) 1-Acute kidney injury. Normal creatinine 2014. Patient presented with creatinine 1.07 mg/dL. UA showed 100 protein and 100 blood but no RBCs or white cell count. 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 C3/C4 are within normal limits. Hepatitis panel is negative No recovery of kidney function. Remains anuric Patient is currently hemodialysis dependent for metabolic and volume support. Dialysis started on May 28. 2-Acute respiratory failure from bilateral pneumonia. 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 0-[id number] pneumonia. On levaquin which is appropriately dosed for HD patient. Plan HD tomorrow as per schedule
[2018-06-07 13:06] LABS: Bedside Glucose 173 mg/dL (70-110)
--- NOTE | 2018-06-07 13:37 | CASEMGMT ---
Addendum entered by Terra Tran 06/07/18 14:53: Hunter Rice brought in the court document stating he is pt's guardian until 07/07/18, SW placed the form on the chart. EVA Bustos FOOD PREPARATION WORKER Original Note: Hunter Rice, chemical project engineer, called and stated that he was granted guardianship for 30 days of pt, he will bring in the papers this afternoon and come to see the pt. SW did ask Hunter if it would be okay to give pt's aunt updates when she calls in, he is fine with this. Hunter states if more than 30 days is needed, he can go back to the court to extend the guardianship further. SW called ICU and let RN know that Hunter Rice was given guardianship for 30 days and he will be in this afternoon to bring the papers and see the pt. EVA Bustos, FOOD PREPARATION WORKER
--- NOTE | 2018-06-07 14:40 | NURSING ---
pt speaking around the OET. 22cm at lip. per RT, was 25cm this past weekend. Advanced to 24cm lip. no leaking around the OET. bilat breath sds. CXR ordered.
--- NOTE | 2018-06-07 14:45 | RAD_ITS ---
STUDY: X-RAY CHEST REASON FOR EXAM: Female, 57 years old. Endotracheal tube placement. TECHNIQUE: Single AP portable view of the chest. COMPARISON: Comparison is made with prior examination dated June 04, 2018. FINDINGS: An endotracheal tube is seen. The tip is at 3.9 cm proximal to the ehsan. The orogastric tube has been removed. A right-sided double-lumen catheter is seen with the tip at the junction of the superior vena cava and right atrium. A left-sided internal jugular venous line is seen with the tip in the midportion of superior cava. Persistent infiltrate in the lateral aspect of the right lung. Stable appearance of the left lung. Blunting of both costophrenic angles. Normal size heart. Normal mediastinum and lyric. Normal visualized pulmonary arteries. Normal visualized aortic arch and descending thoracic aorta. There are diffuse degenerative changes of the visualized thoracic spine. Normal visualized ribs, clavicles, and shoulders. There is no demonstrated abnormality of the visualized soft tissue structures of the upper abdomen. RAD/Chest 1 View (Portable) IMPRESSION: Stable examination. Electronically Signed: Royer Rowe, at 15:36 EST , Service support ,
--- NOTE | 2018-06-07 16:07 | OP.ENDO_ITS ---
06/07/2018 Richard Elizabeth [address] [place] [address] Re : Upper GI endoscopy procedure for Yelitza Dye Hercules Dear Dr. Elizabeth This procedure was performed on May. My impressions and recommendations are as follows: Impressions : - Normal esophagus. - Gastritis. No specimens collected. - Normal examined duodenum. No specimens collected. - An externally removable PEG placement was successfully completed. Recommendations : - Please follow the post-PEG recommendations. - Continue present medications. My findings are described in the full procedure note, which is enclosed. If I can be of further assistance, please feel free to contact me at Doctor phone number(s): , Fax: [phone], Work: . Sincerely, MD Owen De La Fuente MD 06/07/2018 4:06:45 PM This report has been signed electronically.
--- NOTE | 2018-06-07 17:20 | NURSING ---
ed re chronic illness deferred till pt able to understand and participate
[2018-06-07] MEDS: Famotidine 20 MG Tablet GT (18:19)
[2018-06-07] MEDS: RisperiDONE 2 MG Tablet GT ×2 (18:19→22:30)
[2018-06-07] MEDS: RisperiDONE 0.5 MG Tablet GT ×2 (18:19→22:30)
[2018-06-07] MEDS: Vital AF 1.2 Cal Liquid 1,000 ML 60 ML GT (18:22)
[2018-06-07 18:26] LABS: Bedside Glucose 124 mg/dL (70-110)
[2018-06-07] MEDS: Heparin Injection (Vial) 5,000 UNIT/ML VIAL 5000 UNIT SC (21:52)
[2018-06-07 22:50] LABS: Bedside Glucose 172 mg/dL (70-110)
[2018-06-08] VITALS (37 sets, daily range): BP systolic 100–135; BP diastolic 61–85; PULSE 66–97; RESP 12–21; TEMP 36.9–37.4; O2SAT 89–98
[2018-06-08] MEDS: Insulin Lispro 100 UNIT/ML INSULN.PEN SC ×3 (01:26→23:39)
[2018-06-08 01:41] LABS: Bedside Glucose 179 mg/dL (70-110)
[2018-06-08] MEDS: fentaNYL drip 100 ML 15 MCG IV ×3 (04:11→19:04)
[2018-06-08] MEDS: Nystatin Powder 15gm Bottle 1 APPLIC TOPICAL ×3 (06:15→21:39)
[2018-06-08] MEDS: CHLORHEXIDINE GLUC 2% CLOTH 1 EACH TOWELETTE TOPICAL (06:15)
[2018-06-08 06:25] LABS: Bedside Glucose 183 mg/dL (70-110)
[2018-06-08] MEDS: Heparin Injection (Vial) 5,000 UNIT/ML VIAL 5000 UNIT SC ×3 (06:25→21:41)
--- NOTE | 2018-06-08 06:29 | PCM.PN.INT ---
Subjective: The patient was seen and examined at the bedside this morning. Events from the last 24 hours have been reviewed. The patient is currently afebrile, hemodynamically stable and maintaining appropriate oxygen saturations on assist control with an FiO2 of 35%. The patient's fecal management system was removed overnight. She is now documented to be overall net +4.3 L for the admission. She did undergo successful bedside percutaneous PEG tube placement yesterday. Objective: The patient's most recent lab work, culture data and imaging studies have all been personally reviewed. Infectious workup was noted to be negative with the exception of a urine culture which was positive for Klebsiella pneumonia. Surface echocardiogram dated May 25 revealed evidence of stage I diastolic dysfunction with an ejection fraction of 55%. General: No apparent distress, - - Appears to be resting comfortably on assist control mode mechanical ventilation. HEENT: Atraumatic, PERRLA, Normocephalic Oral: No Gingival or Mucosal Lesions/ Ulcerations, - - Endotracheal tube remains in place Neck: Supple, No Nodes, Trachea Midline, - - Tunneled hemodialysis catheter and temporary triple-lumen catheter in place. Lungs: No rhonchi, No wheeze, No rales, Diminished Cardiovascular: Regular rate, Regular Rhythm, Normal S1, Normal S2, No murmurs Abdomen: Bowel Sounds Present, Soft, - - PEG tube site is C/D/I Extremities: No clubbing, No cyanosis, No edema Skin: - - No significant change from previous. Musculoskeletal: No Tenderness to Palpation of Joints or Extremities Lymphatic: No Cervical, Supraclavicular, or Inguinal Adenopathy Neurological: - - No focal neurological deficits. Vital Signs Temp Pulse Resp BP Pulse Ox 37.0 C 85 16 119/85 H 98 06/08/18 00:00 06/08/18 06:00 06/08/18 06:00 06/08/18 06:00 06/08/18 06:00 Oxygen Flow Rate (L/min) 50 Oxygen Delivery Method Mechanical Ventilator Weight: 294 lb 8.601 oz Body Mass Index (BMI) 49.7 Finger Stick Blood Glucose 150 Intake and Output for Last 24 Hours 06/06/18 06/07/18 06/08/18 23:59 23:59 23:59 Intake Total 1709.7 / 1709.7 629.4 / 629.4 164 / 164 Output Total 3590 / 3590 185 / 185 75 / 75 Balance -1880.3 / -1880.3 444.4 / 444.4 89 / 89 Labs (Last 48 Hours) 06/04/18 06/05/18 06/06/18 08:35 06:45 12:08 WBC RBC Hgb Hct MCV MCH MCHC RDW RDW Differential Plt Count MPV Immature Gran % (Auto) Neut % (Auto) Lymph % (Auto) Hernando % (Auto) Eos % (Auto) Baso % (Auto) Absolute Neuts (auto) Absolute Lymphs (auto) Total Counted Diff Path Review Reviewed Reviewed PT INR Sodium Potassium Chloride Carbon Dioxide Anion Gap BUN Creatinine Estim Creat Clear Calc Est GFR (MDRD) Af Amer Est GFR (MDRD) Non-Af BUN/Creatinine Ratio Glucose Calcium POC Glucose 140 H 06/06/18 06/06/18 06/06/18 17:58 21:08 23:16 WBC RBC Hgb Hct MCV MCH MCHC RDW RDW Differential Plt Count MPV Immature Gran % (Auto) Neut % (Auto) Lymph % (Auto) Hernando % (Auto) Eos % (Auto) Baso % (Auto) Absolute Neuts (auto) Absolute Lymphs (auto) Total Counted Diff Path Review PT INR Sodium Potassium Chloride Carbon Dioxide Anion Gap BUN Creatinine Estim Creat Clear Calc Est GFR (MDRD) Af Amer Est GFR (MDRD) Non-Af BUN/Creatinine Ratio Glucose Calcium POC Glucose 137 H 240 H 233 H 06/07/18 06/07/18 06/07/18 04:10 04:10 05:10 WBC 10.8 RBC 4.01 L Hgb 10.4 L Hct 33.1 L MCV 82.5 MCH 25.9 L MCHC 31.4 L RDW 14.7 H RDW Differential 43.4 Plt Count 319 MPV 8.1 Immature Gran % (Auto) 2.600 H Neut % (Auto) 69.1 Lymph % (Auto) 13.6 L Hernando % (Auto) 11.8 H Eos % (Auto) 1.4 Baso % (Auto) 1.5 H Absolute Neuts (auto) 7.5 Absolute Lymphs (auto) 1.47 Total Counted Not Reportable Diff Path Review May foll PT INR Sodium 139 Potassium 3.9 Chloride 99 Carbon Dioxide 29.0 Anion Gap 11 BUN 41 H Creatinine 3.38 H Estim Creat Clear Calc 17.19 Est GFR (MDRD) Af Amer 18 L Est GFR (MDRD) Non-Af 15 L BUN/Creatinine Ratio 12.1 Glucose 190 H Calcium 8.3 L POC Glucose 192 H 06/07/18 06/07/18 06/07/18 07:00 09:38 12:25 WBC RBC Hgb Hct MCV MCH MCHC RDW RDW Differential Plt Count MPV Immature Gran % (Auto) Neut % (Auto) Lymph % (Auto) Hernando % (Auto) Eos % (Auto) Baso % (Auto) Absolute Neuts (auto) Absolute Lymphs (auto) Total Counted Diff Path Review PT 14.0 INR 1.1 Sodium Potassium Chloride Carbon Dioxide Anion Gap BUN Creatinine Estim Creat Clear Calc Est GFR (MDRD) Af Amer Est GFR (MDRD) Non-Af BUN/Creatinine Ratio Glucose Calcium POC Glucose 204 H 173 H 06/07/18 06/07/18 06/08/18 18:16 21:52 01:21 WBC RBC Hgb Hct MCV MCH MCHC RDW RDW Differential Plt Count MPV Immature Gran % (Auto) Neut % (Auto) Lymph % (Auto) Hernando % (Auto) Eos % (Auto) Baso % (Auto) Absolute Neuts (auto) Absolute Lymphs (auto) Total Counted Diff Path Review PT INR Sodium Potassium Chloride Carbon Dioxide Anion Gap BUN Creatinine Estim Creat Clear Calc Est GFR (MDRD) Af Amer Est GFR (MDRD) Non-Af BUN/Creatinine Ratio Glucose Calcium POC Glucose 124 H 172 H 179 H 06/08/18 06:18 WBC RBC Hgb Hct MCV MCH MCHC RDW RDW Differential Plt Count MPV Immature Gran % (Auto) Neut % (Auto) Lymph % (Auto) Hernando % (Auto) Eos % (Auto) Baso % (Auto) Absolute Neuts (auto) Absolute Lymphs (auto) Total Counted Diff Path Review PT INR Sodium Potassium Chloride Carbon Dioxide Anion Gap BUN Creatinine Estim Creat Clear Calc Est GFR (MDRD) Af Amer Est GFR (MDRD) Non-Af BUN/Creatinine Ratio Glucose Calcium POC Glucose 183 H Clinical Impression(s) from Imaging Studies Chest X-Ray 05/23/18 15:15 IMPRESSION: Findings suggestive CHF with superimposed atelectasis and/or infiltrate in the right midlung. Electronically Signed: Royer Rowe MD at 15:56 EST , Service support , Chest X-Ray 05/24/18 10:30 IMPRESSION: Findings consistent with CHF. This appears worsening with areas of consolidation at the left lung base. Electronically Signed: Michael Braxton DO at 17:08 EST Tel [phone], Service support , KUB X-Ray 05/24/18 14:46 IMPRESSION: The tip of the orogastric tube is in the body of the stomach. Electronically Signed: Royer Rowe MD at 15:43 EST , Service support , Chest X-Ray 05/24/18 15:10 IMPRESSION: The tip of the endotracheal tube is at 6.3 cm proximal to the ehsan. Electronically Signed: Royer Rowe MD at 15:44 EST , Service support , Chest X-Ray 05/25/18 05:11 IMPRESSION: The tip of the endotracheal tube is at 2.4 sinus proximal to the ehsan. The remainder the examination is unchanged. Electronically Signed: Royer Rowe MD at 8:15 EST , Service support , Chest CT 05/25/18 09:38 IMPRESSION: Infiltrates in both lungs worse in the right upper lobe and both lower lobes. Electronically Signed: Royer Rowe MD at 11:32 EST , Service support , Chest X-Ray 05/26/18 10:28 IMPRESSION: Stable interval exam. Placement of right subclavian central venous catheter without evidence of pneumothorax Electronically Signed: Rocco Zepeda DO at 11:52 EST Tel , Service support , Chest X-Ray 05/28/18 05:55 IMPRESSION: Stable findings. Persistent bilateral pulmonary infiltrates, larger on the right. at 0514 Reported and signed by: West Saini MD Electronically Signed: West Saini, at 5:13 EST Tel , Service support , Chest X-Ray 05/28/18 15:06 IMPRESSION: All lines are in good position. Progressive bilateral infiltrations. Electronically Signed: Royer Rowe MD at 16:01 EST , Service support , Chest X-Ray 05/30/18 08:00 IMPRESSION: Stable examination. Electronically Signed: Royer Rowe MD at 13:52 EST , Service support , Chest X-Ray 06/04/18 08:44 IMPRESSION: All the support tubes are unchanged. Prior study, there has been improved aeration of both lungs as described. Electronically Signed: Royer Rowe MD at 13:50 EST , Service support , Chest X-Ray 06/04/18 17:15 Chest X-Ray 06/07/18 14:45 IMPRESSION: Stable examination. Electronically Signed: Royer Rowe, at 15:36 EST , Service support , Medical Necessity - Tobacco Use Smoking Status: Never smoker Tobacco Use: Non-smoker Assessment/Plan All Active Problems Chest pain (Acute) Acute respiratory failure with hypoxia (Acute) PNA (pneumonia) (Acute) Acute kidney injury (Acute) RECOMMENDATIONS: 1. Continue tube feeds and basal insulin regimen. 2. Reattempt to place patient on spontaneous mode of mechanical ventilation. 3. Continue hemodialysis per nephrology recommendations. 4. Continue bronchodilators 5. Continue antibiotics to complete treatment course. 6. Continue appropriate ICU prophylaxis 7. Await tracheostomy placement IMPRESSIONS: 1. Acute combined respiratory failure secondary to severe community-acquired pneumonia The patient has been on treatment for multifocal pneumonia, and although improving, continues to have a significant ventilator requirement. At this time, the patient's antibiotics will be continued to complete her treatment course. We will continue to wean her FiO2 and PEEP as tolerated. Given the patient's inability to be weaned from mechanical ventilation, she has already undergone percutaneous PEG tube placement and is awaiting tracheostomy placement early next week. Volume optimization will be continued by hemodialysis per nephrology recommendations. We will once again attempt to place patient on spontaneous mode mechanical ventilation today. 2. Acute kidney injury Likely secondary to ATN, as the patient was initially diuresed on admission to the hospital and also developed a component of hypotension on arrival to the ICU. Nephrology is currently following. The patient has been responding to hemodialysis support. The patient's temporary hemodialysis catheter was removed and a tunneled catheter was subsequently placed on June 04. Recommend continuing dialysis and volume optimization per nephrology recommendations. 3. Indeterminate troponin/acute on chronic diastolic heart failure Echocardiogram revealed no wall motion abnormalities. Nephrology is following to assist with volume management. 4. Morbid obesity/diabetes mellitus/anxiety/depression/PTSD Complicates care, management, recovery and prognosis. Continue Accu-Cheks and sliding scale insulin coverage. Tube feeds will be continued. TIME: 38 minutes of critical care time, independent of procedures, was spent addressing the patient's acute combined respiratory failure, severe community acquired pneumonia, acute kidney injury, diastolic heart failure with exacerbation, review of all data and collaboration with the care team. ([id number]) Code Visit 9xxxx: [id number] Critical care first hour
[2018-06-08] MEDS: Ipratropium/Albuterol Sulfate 3 ML AMPUL.NEB INHALATION ×4 (06:57→18:45)
--- NOTE | 2018-06-08 08:11 | PCM.PN.HOSP ---
Patient Problems: Active and Suspected Problems Chest pain (Acute) Acute respiratory failure with hypoxia (Acute) PNA (pneumonia) (Acute) Acute kidney injury (Acute) Subjective: Seen and examined. Patient had PEG tube insertion yesterday. On tube fluid at 60 mils per hour. No acute events overnight. No fever. Still intubated on 35% FiO2, assist control mode. Plan for tracheostomy next week. Vitals/I&O's: Vital Signs Temp Pulse Resp BP Pulse Ox 98.6 F 85 21 H 117/76 96 06/08/18 00:00 06/08/18 07:00 06/08/18 07:00 06/08/18 07:00 06/08/18 07:00 Oxygen Flow Rate (L/min) 50 Oxygen Delivery Method Mechanical Ventilator Weight: 294 lb 8.601 oz Body Mass Index (BMI) 49.7 Finger Stick Blood Glucose 150 Intake and Output for Last 24 Hours 06/06/18 06/07/18 06/08/18 23:59 23:59 23:59 Intake Total 1709.7 / 1709.7 629.4 / 629.4 164 / 164 Output Total 3590 / 3590 185 / 185 75 / 75 Balance -1880.3 / -1880.3 444.4 / 444.4 89 / 89 General: Alert, Oriented x3, Cooperative HEENT: Atraumatic, PERRLA, EOMI, Normocephalic Neck: Supple, No JVD, Negative Carotid Bruits Lungs: Diminished, - - On vent support. Cardiovascular: Regular rate, Regular Rhythm, Normal S1, Normal S2, No murmurs Abdomen: Bowel Sounds Present, Soft, Non Tender, - - Anuric. On hemodialysis PEG tube feeding Extremities: Capillary Refill Less than 3 Seconds, Edema Skin: No rashes, No breakdown Musculoskeletal: No Tenderness to Palpation of Joints or Extremities, Arthritic Changes Neurological: Cranial nerves II-XII grossly intact Psych/Mental Status: Normal Affect, Appropriate Laboratory Results 06/07/18 09:38: POC Glucose 204 H 06/07/18 12:25: POC Glucose 173 H 06/07/18 18:16: POC Glucose 124 H 06/07/18 21:52: POC Glucose 172 H 06/08/18 01:21: POC Glucose 179 H 06/08/18 06:18: POC Glucose 183 H Current Medications Acetaminophen (Tylenol Liquid) 650 mg GT Q4H PRN PRN PRN Reason: T > 100.5 F Last Admin: 05/25/18 01:27 Dose: 650 mg Albuterol Sulfate (Ventolin Aerosols) 2.5 mg INHALATION Q2H PRN PRN PRN Reason: SOB &/OR WHEEZING Last Admin: 06/04/18 18:40 Dose: 2.5 mg Albuterol/Ipratropium (Duoneb) 3 ml INHALATION Q4HWA.RT [facility] Last Admin: 06/08/18 06:57 Dose: 3 ml Calamine/Phenol (Calmoseptine Ointment) 1 applic TOPICAL BID [facility]; Protocol Last Admin: 06/07/18 21:42 Dose: 1 applicatio Chlorhexidine Gluconate () 1 each TOPICAL DAILY [facility] Last Admin: 06/08/18 06:15 Dose: 1 each Chlorhexidine Gluconate () 15 ml PO BID [facility] Last Admin: 06/07/18 21:42 Dose: 15 ml Dextrose (D50w Syringe) 0 gm IV X1 PRN; Protocol PRN Reason: Hypoglycemia Famotidine (Pepcid) 20 mg GT DAILY [facility] Last Admin: 06/07/18 18:19 Dose: 20 mg Glucagon () 1 mg IM .X1 PRN PRN Reason: Hypoglycemia Heparin Sodium (Porcine) (Heparin Na) 5,000 unit SC Q8 RUBI Last Admin: 06/08/18 06:25 Dose: 5,000 unit Heparin Sodium (Porcine) () 2,500 units IV UD PRN PRN Reason: HEPARIN FLUSH Last Admin: 06/05/18 13:06 Dose: 2,500 units Sodium Chloride () 250 mls @ 15 mls/hr IV .[id number] PRN PRN Reason: SALINE FLUSH Last Admin: 06/07/18 10:09 Dose: 15 mls/hr Sodium Chloride () 250 mls @ 15 mls/hr IV .[id number] PRN PRN Reason: SALINE FLUSH Sodium Chloride () 250 mls @ 15 mls/hr IV .[id number] PRN PRN Reason: SALINE FLUSH Sodium Chloride () 250 mls @ 15 mls/hr IV .[id number] PRN PRN Reason: SALINE FLUSH Fentanyl () 100 mls @ 15 mls/hr IV .Q20H [facility] Last Admin: 06/08/18 04:11 Dose: 15 mls/hr Enteral Nutritional Formula (Vital Af 1.2 Glenn Liquid) 1,000 mls @ 60 mls/hr GT .[id number] [facility] Last Admin: 06/07/18 18:22 Dose: 60 mls/hr Levofloxacin (Levaquin Iv) 500 mg in 100 mls @ 100 mls/hr IV Q48 [facility] Last Admin: 06/07/18 10:08 Dose: 100 mls/hr Propofol (Diprivan) 1,000 mg in 100 mls @ 8.292 mls/hr CONT INF .Q12H [facility] Last Admin: 06/08/18 06:29 Dose: Not Given Insulin Glargine (Lantus (Bk)) 60 units SC BID [facility] Last Admin: 06/07/18 21:53 Dose: 60 u Insulin Human Lispro (Humalog Kwikpen ([facility])) 0 unit SC Q6 [facility]; Protocol Last Admin: 06/08/18 06:18 Dose: 4 u Nystatin (Mycostatin Powder) 1 applic TOPICAL TID [facility]; Protocol Last Admin: 06/08/18 06:15 Dose: 1 applic Ondansetron HCl (Zofran) 4 mg IV Q4H PRN PRN PRN Reason: NAUSEA/VOMITING Last Admin: 06/07/18 05:05 Dose: 4 mg Polyethylene Glycol (Miralax) 17 gm GT DAILY [facility] Last Admin: 06/07/18 09:34 Dose: Not Given Risperidone (Risperdal) 2 mg GT BID [facility] Last Admin: 06/07/18 22:30 Dose: 2 mg Risperidone (Risperdal) 0.5 mg GT BID [facility] Last Admin: 06/07/18 22:30 Dose: 0.5 mg Sodium Chloride () 5 - 15 ml IV UD PRN PRN Reason: SALINE FLUSH Last Admin: 06/07/18 12:27 Dose: 15 ml Sodium Chloride () 10 ml IV UD PRN PRN Reason: Dialysis Catheter Flush Medical Necessity - Tobacco Use Smoking Status: Never smoker Tobacco Use: Non-smoker Assessment/Plan All Active Problems Chest pain (Acute) Acute respiratory failure with hypoxia (Acute) PNA (pneumonia) (Acute) Acute kidney injury (Acute) This is a 57-year-old female who is being admitted for acute hypoxic and hypercarbic respiratory failure. Initially, patient was put on BiPAP on PCU but later on was intubated and transferred to ICU on 05/24/2018. Blood cultures x2, urine culture, respiratory panel ordered. Patient also had chest pain on and off, on exertion and relieved with rest, typical angina but had negative cardiac cath in 2013. Serial troponin enzymes showed first 1 0.05 indeterminant but rest negative. ECHO reported no wall motion abnormality. 1. Acute hypoxic and hypercapnic respiratory failure due to severe multifocal community acquired pneumonia. remains intubated. She failed spontaneous breathing trial and ENT Dr. Rice consulted for tracheostomy. Patient was intubated on 05/24/2018. Discussed with ENT and plan is for tracheostomy next week. Had PEG tube on 06/07/2018. Blood cultures showed no growth and urine grew Klebsiella pneumonia. now on IV cefazolin and IV levaquin. Awaiting guardianship by transactional attorney. Awaiting guardianship. on propofol and fentanyl for sedation 2. Severe multifocal community-acquired pneumonia: Sputum culture showed mixed normal respiratory addison with no Selin. 3. Acute renal failure, most probably secondary to ATN: Nephrology on board. had tunnelled dialysis catheter placed for senior living dialysis Patient is currently dialysis dependent. 4. Acute on chronic diastolic heart failure 2D echo showed normal left ventricular size and function with EF of 55% in stage I diastolic dysfunction. Requiring dialysis for fluid removal. Urine output is not adequate 65 mL yesterday. About 3.5 L was fluid removed by dialysis. Anuric 5. Type 2 diabetes mellitus: On Lantus 60IU bid and insulin sliding scale. 6. Depression and anxiety, PTSD, morbid obesity: Multiple comorbidities complicates the present care and expect difficult and delay recovery DVT prophylaxis: Heparin Code Visit Inpatient E&M: [id number] [facility] L3
--- NOTE | 2018-06-08 08:17 | PN_ITS ---
Patient Problems: Active and Suspected Problems Chest pain (Acute) Acute respiratory failure with hypoxia (Acute) PNA (pneumonia) (Acute) Acute kidney injury (Acute) Subjective: Seen and examined. Patient had PEG tube insertion yesterday. On tube fluid at 60 mils per hour. No acute events overnight. No fever. Still intubated on 35% FiO2, assist control mode. Plan for tracheostomy next week. Vitals/I&O's: Vital Signs Temp Pulse Resp BP Pulse Ox 98.6 F 85 21 H 117/76 96 06/08/18 00:00 06/08/18 07:00 06/08/18 07:00 06/08/18 07:00 06/08/18 07:00 Oxygen Flow Rate (L/min) 50 Oxygen Delivery Method Mechanical Ventilator Weight: 294 lb 8.601 oz Body Mass Index (BMI) 49.7 Finger Stick Blood Glucose 150 Intake and Output for Last 24 Hours 06/06/18 06/07/18 06/08/18 23:59 23:59 23:59 Intake Total 1709.7 / 1709.7 629.4 / 629.4 164 / 164 Output Total 3590 / 3590 185 / 185 75 / 75 Balance -1880.3 / -1880.3 444.4 / 444.4 89 / 89 General: Alert, Oriented x3, Cooperative HEENT: Atraumatic, PERRLA, EOMI, Normocephalic Neck: Supple, No JVD, Negative Carotid Bruits Lungs: Diminished, - - On vent support. Cardiovascular: Regular rate, Regular Rhythm, Normal S1, Normal S2, No murmurs Abdomen: Bowel Sounds Present, Soft, Non Tender, - - Anuric. On hemodialysis PEG tube feeding Extremities: Capillary Refill Less than 3 Seconds, Edema Skin: No rashes, No breakdown Musculoskeletal: No Tenderness to Palpation of Joints or Extremities, Arthritic Changes Neurological: Cranial nerves II-XII grossly intact Psych/Mental Status: Normal Affect, Appropriate Laboratory Results 06/07/18 09:38: POC Glucose 204 H 06/07/18 12:25: POC Glucose 173 H 06/07/18 18:16: POC Glucose 124 H 06/07/18 21:52: POC Glucose 172 H 06/08/18 01:21: POC Glucose 179 H 06/08/18 06:18: POC Glucose 183 H Current Medications Acetaminophen (Tylenol Liquid) 650 mg GT Q4H PRN PRN PRN Reason: T > 100.5 F Last Admin: 05/25/18 01:27 Dose: 650 mg Albuterol Sulfate (Ventolin Aerosols) 2.5 mg INHALATION Q2H PRN PRN PRN Reason: SOB &/OR WHEEZING Last Admin: 06/04/18 18:40 Dose: 2.5 mg Albuterol/Ipratropium (Duoneb) 3 ml INHALATION Q4HWA.RT [facility] Last Admin: 06/08/18 06:57 Dose: 3 ml Calamine/Phenol (Calmoseptine Ointment) 1 applic TOPICAL BID [facility]; Protocol Last Admin: 06/07/18 21:42 Dose: 1 applicatio Chlorhexidine Gluconate () 1 each TOPICAL DAILY [facility] Last Admin: 06/08/18 06:15 Dose: 1 each Chlorhexidine Gluconate () 15 ml PO BID [facility] Last Admin: 06/07/18 21:42 Dose: 15 ml Dextrose (D50w Syringe) 0 gm IV X1 PRN; Protocol PRN Reason: Hypoglycemia Famotidine (Pepcid) 20 mg GT DAILY [facility] Last Admin: 06/07/18 18:19 Dose: 20 mg Glucagon () 1 mg IM .X1 PRN PRN Reason: Hypoglycemia Heparin Sodium (Porcine) (Heparin Na) 5,000 unit SC Q8 RUBI Last Admin: 06/08/18 06:25 Dose: 5,000 unit Heparin Sodium (Porcine) () 2,500 units IV UD PRN PRN Reason: HEPARIN FLUSH Last Admin: 06/05/18 13:06 Dose: 2,500 units Sodium Chloride () 250 mls @ 15 mls/hr IV .[id number] PRN PRN Reason: SALINE FLUSH Last Admin: 06/07/18 10:09 Dose: 15 mls/hr Sodium Chloride () 250 mls @ 15 mls/hr IV .[id number] PRN PRN Reason: SALINE FLUSH Sodium Chloride () 250 mls @ 15 mls/hr IV .[id number] PRN PRN Reason: SALINE FLUSH Sodium Chloride () 250 mls @ 15 mls/hr IV .[id number] PRN PRN Reason: SALINE FLUSH Fentanyl () 100 mls @ 15 mls/hr IV .Q20H [facility] Last Admin: 06/08/18 04:11 Dose: 15 mls/hr Enteral Nutritional Formula (Vital Af 1.2 Glenn Liquid) 1,000 mls @ 60 mls/hr GT .[id number] [facility] Last Admin: 06/07/18 18:22 Dose: 60 mls/hr Levofloxacin (Levaquin Iv) 500 mg in 100 mls @ 100 mls/hr IV Q48 [facility] Last Admin: 06/07/18 10:08 Dose: 100 mls/hr Propofol (Diprivan) 1,000 mg in 100 mls @ 8.292 mls/hr CONT INF .Q12H [facility] Last Admin: 06/08/18 06:29 Dose: Not Given Insulin Glargine (Lantus (Bk)) 60 units SC BID [facility] Last Admin: 06/07/18 21:53 Dose: 60 u Insulin Human Lispro (Humalog Kwikpen ([facility])) 0 unit SC Q6 [facility]; Protocol Last Admin: 06/08/18 06:18 Dose: 4 u Nystatin (Mycostatin Powder) 1 applic TOPICAL TID [facility]; Protocol Last Admin: 06/08/18 06:15 Dose: 1 applic Ondansetron HCl (Zofran) 4 mg IV Q4H PRN PRN PRN Reason: NAUSEA/VOMITING Last Admin: 06/07/18 05:05 Dose: 4 mg Polyethylene Glycol (Miralax) 17 gm GT DAILY [facility] Last Admin: 06/07/18 09:34 Dose: Not Given Risperidone (Risperdal) 2 mg GT BID [facility] Last Admin: 06/07/18 22:30 Dose: 2 mg Risperidone (Risperdal) 0.5 mg GT BID [facility] Last Admin: 06/07/18 22:30 Dose: 0.5 mg Sodium Chloride () 5 - 15 ml IV UD PRN PRN Reason: SALINE FLUSH Last Admin: 06/07/18 12:27 Dose: 15 ml Sodium Chloride () 10 ml IV UD PRN PRN Reason: Dialysis Catheter Flush Medical Necessity - Tobacco Use Smoking Status: Never smoker Tobacco Use: Non-smoker Assessment/Plan All Active Problems Chest pain (Acute) Acute respiratory failure with hypoxia (Acute) PNA (pneumonia) (Acute) Acute kidney injury (Acute) This is a 57-year-old female who is being admitted for acute hypoxic and hypercarbic respiratory failure. Initially, patient was put on BiPAP on PCU but later on was intubated and transferred to ICU on 05/24/2018. Blood cultures x2, urine culture, respiratory panel ordered. Patient also had chest pain on and off, on exertion and relieved with rest, typical angina but had negative cardiac cath in 2013. Serial troponin enzymes showed first 1 0.05 indeterminant but rest negative. ECHO reported no wall motion abnormality. 1. Acute hypoxic and hypercapnic respiratory failure due to severe multifocal community acquired pneumonia. * remains intubated. She failed spontaneous breathing trial and ENT Dr. Rice consulted for tracheostomy. Patient was intubated on 05/24/2018. Discussed with ENT and plan is for tracheostomy next week. Had PEG tube on 06/07/2018. * Blood cultures showed no growth and urine grew Klebsiella pneumonia. * now on IV cefazolin and IV levaquin. * Awaiting guardianship by casino cage manager. Awaiting guardianship. * on propofol and fentanyl for sedation 2. Severe multifocal community-acquired pneumonia: Sputum culture showed mixed normal respiratory addison with no Selin. 3. Acute renal failure, most probably secondary to ATN: * Nephrology on board. 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 4. Acute on chronic diastolic heart failure * 2D echo showed normal left ventricular size and function with EF of 55% in stage I diastolic dysfunction. * Requiring dialysis for fluid removal. Urine output is not adequate 65 mL yesterday. About 3.5 L was fluid removed by dialysis. Anuric 5. Type 2 diabetes mellitus: On Lantus 60IU bid and insulin sliding scale. 6. Depression and anxiety, PTSD, morbid obesity: Multiple comorbidities complicates the present care and expect difficult and delay recovery DVT prophylaxis: Heparin Code Visit Inpatient E&M: [id number] [facility]
--- NOTE | 2018-06-08 10:00 | CASEMGMT ---
Addendum entered by Terra Tran 06/08/18 11:44: Pt's aunt Mary Grace Peterson called back, SW passed on Hunter Rice' name and number to her. EVA Bustos, JUNIOR ACCOUNT EXECUTIVE Original Note: Addendum entered by Terra Tran 06/08/18 11:27: SW spoke w/Hunter, he states he is in agreement w/referral to LTACH, would prefer the [place] location to [place], for [place]. SW let CM know. He also would like to know how pt is, SW will ask RN to call Hunter when able. EVA Bustos, JUNIOR ACCOUNT EXECUTIVE Original Note: Shaper And Presser Hunter Rice had given SW permission to pass on his name and number to pt's aunt Mary Grace Peterson([phone]). SW called Mary Grace and left a message to call this SW back. SW also called Hunter Rice and left a message regarding starting the referral process for pt to an LTACH. SW will continue to follow. EVA Bustos, JUNIOR ACCOUNT EXECUTIVE
[2018-06-08 10:46] LABS: Anion Gap 13 (5-15); BUN 74 mg/dL (7-18); BUN/Creat Ratio 14.9 RATIO (10-20); Calcium,Total 8.9 mg/dL (8.5-10.1); Chloride 100 mmol/L (98-107); Creatinine, Serum 4.98 mg/dL (0.55-1.02); EST Glomerular Filtration Rate 10 mL/min (>60); Est Glom Filt Rate - Afr Amer 12 mL/min (>60); Estimated Creatinine Clearance 11.67 ml/min; Glucose 178 mg/dL (74-106); Potassium 3.9 mmol/L (3.5-5.1); Sodium Level 140 mmol/L (136-145)
[2018-06-08] MEDS: Menthol/Lanolin/Calamine/Znox 113 GM Tube 1 APPLIC TOPICAL ×2 (10:55→21:39)
[2018-06-08] MEDS: Chlorhexidine 15 ML PO ×2 (10:56→21:53)
[2018-06-08 11:46] LABS: Bedside Glucose 143 mg/dL (70-110)
--- NOTE | 2018-06-08 12:10 | PN.RENAL_ITS ---
Patient Problems: Active and Suspected Problems Chest pain (Acute) Acute respiratory failure with hypoxia (Acute) PNA (pneumonia) (Acute) Acute kidney injury (Acute) Subjective: events noted - Physical Exam HEENT: Atraumatic, PERRLA, EOMI, Normocephalic Neck: Supple, No JVD, Negative Carotid Bruits Lungs: Clear to auscultation, Normal air movement Cardiovascular: Regular rate, No murmurs Abdomen: Bowel Sounds Present, Soft, Non Tender Extremities: No edema, Capillary Refill Less than 3 Seconds Skin: No rashes, No breakdown Musculoskeletal: No Tenderness to Palpation of Joints or Extremities Vital Signs Temp Pulse Resp BP Pulse Ox 98.6 F 78 14 117/76 95 06/08/18 00:00 06/08/18 09:03 06/08/18 09:03 06/08/18 07:00 06/08/18 09:03 Oxygen Flow Rate (L/min) 50 Oxygen Delivery Method CPAP Weight: 133.6 kg Body Mass Index (BMI) 49.7 Finger Stick Blood Glucose 150 Intake and Output for Last 24 Hours 06/06/18 06/07/18 06/08/18 23:59 23:59 23:59 Intake Total 1709.7 / 1709.7 629.4 / 629.4 164 / 164 Output Total 3590 / 3590 185 / 185 75 / 75 Balance -1880.3 / -1880.3 444.4 / 444.4 89 / 89 Laboratory Tests Past 24 Hrs 06/08/18 08:15 Sodium 140 Potassium 3.9 Chloride 100 Carbon Dioxide 27.0 Anion Gap 13 BUN 74 H Creatinine 4.98 H Estim Creat Clear Calc 11.67 Est GFR (MDRD) Af Amer 12 L Est GFR (MDRD) Non-Af 10 L BUN/Creatinine Ratio 14.9 Glucose 178 H Calcium 8.9 POC Glucose 06/08/18 06/08/18 06/08/18 11:41 06:18 01:21 POC Glucose 143 H 183 H 179 H 06/07/18 06/07/18 06/07/18 21:52 18:16 12:25 POC Glucose 172 H 124 H 173 H Medical Necessity - Tobacco Use Smoking Status: Never smoker Tobacco Use: Non-smoker Assessment/Plan All Active Problems Chest pain (Acute) Acute respiratory failure with hypoxia (Acute) PNA (pneumonia) (Acute) Acute kidney injury (Acute) 1-Acute kidney injury. Normal creatinine 2014. Patient presented with creatinine 1.07 mg/dL. UA showed 100 protein and 100 blood but no RBCs or white cell count. 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 C3/C4 are within normal limits. Hepatitis panel is negative No recovery of kidney function. Remains anuric Patient is currently hemodialysis dependent for metabolic and volume support. Dialysis started on May 28. 2-Acute respiratory failure from bilateral pneumonia. Ventilator support as per the associate professor of music. 8-[id number] pneumonia. On levaquin which is appropriately dosed for HD patient. Plan X Ray looks better. volume status reasonable now urine output is somewhat better seen on HD today, see orders/flowsheets possible trach next week
--- NOTE | 2018-06-08 12:29 | PCM.PN.SRG ---
Patient Problems: Active and Suspected Problems Chest pain (Acute) Acute respiratory failure with hypoxia (Acute) PNA (pneumonia) (Acute) Acute kidney injury (Acute) Subjective: Patient is tolerating tube feeds at this time. Objective: PEG site is clean without signs of infection and working appropriately - Physical Exam Vital Signs Temp Pulse Resp BP Pulse Ox 98.6 F 78 14 117/76 95 06/08/18 00:00 06/08/18 09:03 06/08/18 09:03 06/08/18 07:00 06/08/18 09:03 Oxygen Flow Rate (L/min) 50 Oxygen Delivery Method CPAP Weight: 294 lb 8.601 oz Body Mass Index (BMI) 49.7 Finger Stick Blood Glucose 150 Intake and Output for Last 24 Hours 06/06/18 06/07/18 06/08/18 23:59 23:59 23:59 Intake Total 1709.7 / 1709.7 629.4 / 629.4 164 / 164 Output Total 3590 / 3590 185 / 185 75 / 75 Balance -1880.3 / -1880.3 444.4 / 444.4 89 / 89 Laboratory Tests Past 24 Hrs 06/08/18 08:15 Sodium 140 Potassium 3.9 Chloride 100 Carbon Dioxide 27.0 Anion Gap 13 BUN 74 H Creatinine 4.98 H Estim Creat Clear Calc 11.67 Est GFR (MDRD) Af Amer 12 L Est GFR (MDRD) Non-Af 10 L BUN/Creatinine Ratio 14.9 Glucose 178 H Calcium 8.9 POC Glucose 06/08/18 06/08/18 06/08/18 11:41 06:18 01:21 POC Glucose 143 H 183 H 179 H 06/07/18 06/07/18 06/07/18 21:52 18:16 12:25 POC Glucose 172 H 124 H 173 H Medical Necessity - Tobacco Use Smoking Status: Never smoker Tobacco Use: Non-smoker Assessment/Plan All Active Problems Chest pain (Acute) Acute respiratory failure with hypoxia (Acute) PNA (pneumonia) (Acute) Acute kidney injury (Acute) Will sign off at this time
--- NOTE | 2018-06-08 12:32 | CASEMGMT ---
LINDSAY CM NOTE: Call placed to Adrienne @ [facility]. She was notified that Hunter Rice has been granted a 30-day temporary guardianship. Temp guardianship papers faxed to admissions @ [facility] @ [phone] per Adrienne's request. Adrienne was also notified that Hunter is agreeable to transfer to [facility] once medically cleared and that he prefers the [place] location. Gracia SPENCER RN CM
[2018-06-08 13:21] LABS: Pathologist Review Reviewed
[2018-06-08] MEDS: RisperiDONE 0.5 MG Tablet GT ×2 (14:45→21:41)
[2018-06-08] MEDS: RisperiDONE 2 MG Tablet GT ×2 (14:45→21:41)
[2018-06-08] MEDS: Famotidine 20 MG Tablet GT (14:45)
--- NOTE | 2018-06-08 14:49 | DIALYSIS ---
Hemodialysis completed, 4 hours on a 3K bath. Fluid removed was -2000ml. Patient tolerated well. Dressing change done, site benign. Next treatment most likely Monday or per Nephrology. See dialysis flowsheet for details of the treatment. Christine Weaver [facility]
--- NOTE | 2018-06-08 17:00 | NURSING ---
education re chronic illness deferred till pt able to understand
[2018-06-08 17:31] LABS: Bedside Glucose 134 mg/dL (70-110)
[2018-06-08] MEDS: Vital AF 1.2 Cal Liquid 1,000 ML 60 ML GT (18:23)
[2018-06-08 22:00] LABS: Bedside Glucose 211 mg/dL (70-110)
[2018-06-09] VITALS (38 sets, daily range): BP systolic 99–128; BP diastolic 58–75; PULSE 70–94; RESP 13–20; TEMP 36.7–37.4; O2SAT 91–99
[2018-06-09 00:05] LABS: Bedside Glucose 220 mg/dL (70-110)
[2018-06-09] MEDS: fentaNYL drip 100 ML 15 MCG IV (02:44)
[2018-06-09] MEDS: CHLORHEXIDINE GLUC 2% CLOTH 1 EACH TOWELETTE TOPICAL (02:44)
[2018-06-09] MEDS: Ondansetron 4 MG/2 ML Vial IV (04:20)
[2018-06-09] MEDS: Insulin Lispro 100 UNIT/ML INSULN.PEN SC ×3 (05:09→17:56)
[2018-06-09] MEDS: Nystatin Powder 15gm Bottle 1 APPLIC TOPICAL ×3 (05:09→22:30)
[2018-06-09] MEDS: Heparin Injection (Vial) 5,000 UNIT/ML VIAL 5000 UNIT SC ×3 (05:10→22:29)
[2018-06-09 05:26] LABS: Bedside Glucose 169 mg/dL (70-110)
--- NOTE | 2018-06-09 06:34 | PCM.PN.INT ---
Subjective: The patient was seen and examined at the bedside this morning. Events from the last 24 hours have been reviewed. The patient is currently afebrile, hemodynamically stable and maintaining appropriate oxygen saturations on assist control with an FiO2 requirement of 30%. The patient underwent hemodialysis yesterday with 2 L of fluid removed. Objective: The patient's most recent lab work, culture data and imaging studies have all been personally reviewed. Infectious workup was noted to be negative with the exception of a urine culture which was positive for Klebsiella pneumonia. Surface echocardiogram dated May 25 revealed evidence of stage I diastolic dysfunction with an ejection fraction of 55%. General: Alert, No apparent distress, - - Remains intubated and mechanically ventilated. HEENT: Atraumatic, PERRLA, Normocephalic Oral: No Gingival or Mucosal Lesions/ Ulcerations, - - Endotracheal tube remains in place. Neck: Supple, No Nodes, Trachea Midline, - - Tunneled hemodialysis catheter and temporary triple-lumen catheter in place. Lungs: No rhonchi, No wheeze, No rales, Diminished Cardiovascular: Regular rate, Regular Rhythm, Normal S1, Normal S2, No murmurs Abdomen: Bowel Sounds Present, Soft, Non Tender, Obese, - - PEG tube site is C/D/I Extremities: No clubbing, No cyanosis Skin: - - No significant change from previous. Musculoskeletal: No Tenderness to Palpation of Joints or Extremities, No Muscle Wasting Lymphatic: No Cervical, Supraclavicular, or Inguinal Adenopathy Neurological: - - No focal neurological deficits. Psych/Mental Status: Flat Affect Vital Signs Temp Pulse Resp BP Pulse Ox 36.7 C 75 16 99/65 91 06/09/18 04:00 06/09/18 06:00 06/09/18 06:00 06/09/18 06:00 06/09/18 06:00 Oxygen Flow Rate (L/min) 50 Oxygen Delivery Method Mechanical Ventilator Weight: 291 lb 7.218 oz Body Mass Index (BMI) 49.7 Finger Stick Blood Glucose 150 Intake and Output for Last 24 Hours 06/07/18 06/08/18 06/09/18 23:59 23:59 23:59 Intake Total 629.4 / 629.4 2375 / 2375 430.3 / 430.3 Output Total 185 / 185 2335 / 2335 100 / 100 Balance 444.4 / 444.4 40 / 40 330.3 / 330.3 Labs (Last 48 Hours) 06/07/18 06/07/18 06/07/18 04:10 07:00 09:38 Diff Path Review Reviewed PT 14.0 INR 1.1 Sodium Potassium Chloride Carbon Dioxide Anion Gap BUN Creatinine Estim Creat Clear Calc Est GFR (MDRD) Af Amer Est GFR (MDRD) Non-Af BUN/Creatinine Ratio Glucose Calcium POC Glucose 204 H 06/07/18 06/07/18 06/07/18 12:25 18:16 21:52 Diff Path Review PT INR Sodium Potassium Chloride Carbon Dioxide Anion Gap BUN Creatinine Estim Creat Clear Calc Est GFR (MDRD) Af Amer Est GFR (MDRD) Non-Af BUN/Creatinine Ratio Glucose Calcium POC Glucose 173 H 124 H 172 H 06/08/18 06/08/18 06/08/18 01:21 06:18 08:15 Diff Path Review PT INR Sodium 140 Potassium 3.9 Chloride 100 Carbon Dioxide 27.0 Anion Gap 13 BUN 74 H Creatinine 4.98 H Estim Creat Clear Calc 11.67 Est GFR (MDRD) Af Amer 12 L Est GFR (MDRD) Non-Af 10 L BUN/Creatinine Ratio 14.9 Glucose 178 H Calcium 8.9 POC Glucose 179 H 183 H 06/08/18 06/08/18 06/08/18 11:41 17:17 21:47 Diff Path Review PT INR Sodium Potassium Chloride Carbon Dioxide Anion Gap BUN Creatinine Estim Creat Clear Calc Est GFR (MDRD) Af Amer Est GFR (MDRD) Non-Af BUN/Creatinine Ratio Glucose Calcium POC Glucose 143 H 134 H 211 H 06/08/18 06/09/18 23:38 05:08 Diff Path Review PT INR Sodium Potassium Chloride Carbon Dioxide Anion Gap BUN Creatinine Estim Creat Clear Calc Est GFR (MDRD) Af Amer Est GFR (MDRD) Non-Af BUN/Creatinine Ratio Glucose Calcium POC Glucose 220 H 169 H Clinical Impression(s) from Imaging Studies Chest X-Ray 05/23/18 15:15 IMPRESSION: Findings suggestive CHF with superimposed atelectasis and/or infiltrate in the right midlung. Electronically Signed: Royer Rowe MD at 15:56 EST , Service support , Chest X-Ray 05/24/18 10:30 IMPRESSION: Findings consistent with CHF. This appears worsening with areas of consolidation at the left lung base. Electronically Signed: Michael Braxton DO at 17:08 EST Tel [phone], Service support , KUB X-Ray 05/24/18 14:46 IMPRESSION: The tip of the orogastric tube is in the body of the stomach. Electronically Signed: Royer Rowe MD at 15:43 EST , Service support , Chest X-Ray 05/24/18 15:10 IMPRESSION: The tip of the endotracheal tube is at 6.3 cm proximal to the ehsan. Electronically Signed: Royer Rowe MD at 15:44 EST , Service support , Chest X-Ray 05/25/18 05:11 IMPRESSION: The tip of the endotracheal tube is at 2.4 sinus proximal to the ehsan. The remainder the examination is unchanged. Electronically Signed: Royer Rowe MD at 8:15 EST , Service support , Chest CT 05/25/18 09:38 IMPRESSION: Infiltrates in both lungs worse in the right upper lobe and both lower lobes. Electronically Signed: Royer Rowe MD at 11:32 EST , Service support , Chest X-Ray 05/26/18 10:28 IMPRESSION: Stable interval exam. Placement of right subclavian central venous catheter without evidence of pneumothorax Electronically Signed: Rocco Zepeda DO at 11:52 EST Tel , Service support , Chest X-Ray 05/28/18 05:55 IMPRESSION: Stable findings. Persistent bilateral pulmonary infiltrates, larger on the right. at 0514 Reported and signed by: West Saini MD Electronically Signed: West Saini, at 5:13 EST Tel , Service support , Chest X-Ray 05/28/18 15:06 IMPRESSION: All lines are in good position. Progressive bilateral infiltrations. Electronically Signed: Royer Rowe MD at 16:01 EST , Service support , Chest X-Ray 05/30/18 08:00 IMPRESSION: Stable examination. Electronically Signed: Royer Rowe MD at 13:52 EST , Service support , Chest X-Ray 06/04/18 08:44 IMPRESSION: All the support tubes are unchanged. Prior study, there has been improved aeration of both lungs as described. Electronically Signed: Royer Rowe MD at 13:50 EST , Service support , Chest X-Ray 06/04/18 17:15 Chest X-Ray 06/07/18 14:45 IMPRESSION: Stable examination. Electronically Signed: Royer Rowe at 15:36 EST , Service support , Medical Necessity - Tobacco Use Smoking Status: Never smoker Tobacco Use: Non-smoker Assessment/Plan All Active Problems Chest pain (Acute) Acute respiratory failure with hypoxia (Acute) PNA (pneumonia) (Acute) Acute kidney injury (Acute) RECOMMENDATIONS: 1. Continue tube feeds and basal insulin regimen. 2. Continue spontaneous mode of mechanical ventilation throughout the day and transition to assist control overnight. 3. Continue hemodialysis per nephrology recommendations. 4. Continue bronchodilators 5. Continue antibiotics to complete treatment course. 6. Continue appropriate ICU prophylaxis 7. Await tracheostomy placement IMPRESSIONS: 1. Acute combined respiratory failure secondary to severe community-acquired pneumonia The patient has been on treatment for multifocal pneumonia, and although improving, continues to have a significant ventilator requirement. At this time, the patient's antibiotics will be continued to complete her treatment course. We will continue to wean her FiO2 and PEEP as tolerated. Given the patient's inability to be weaned from mechanical ventilation, she has already undergone percutaneous PEG tube placement and is awaiting tracheostomy placement early next week. Volume optimization will be continued by hemodialysis per nephrology recommendations. 2. Acute kidney injury Likely secondary to ATN, as the patient was initially diuresed on admission to the hospital and also developed a component of hypotension on arrival to the ICU. Nephrology is currently following. The patient has been responding to hemodialysis support. The patient's temporary hemodialysis catheter was removed and a tunneled catheter was subsequently placed on June 04. Recommend continuing dialysis and volume optimization per nephrology recommendations. 3. Indeterminate troponin/acute on chronic diastolic heart failure Echocardiogram revealed no wall motion abnormalities. Nephrology is following to assist with volume management. 4. Morbid obesity/diabetes mellitus/anxiety/depression/PTSD Complicates care, management, recovery and prognosis. Continue Accu-Cheks and sliding scale insulin coverage. Tube feeds will be continued. TIME: 35 minutes of critical care time, independent of procedures, was spent addressing the patient's acute combined respiratory failure, severe community acquired pneumonia, acute kidney injury, diastolic heart failure with exacerbation, review of all data and collaboration with the care team. ([id number]) Code Visit [id number]: [id number] Critical care first hour
[2018-06-09] MEDS: Ipratropium/Albuterol Sulfate 3 ML AMPUL.NEB INHALATION ×4 (06:37→19:05)
--- NOTE | 2018-06-09 08:35 | PCM.PN.HOSP ---
Patient Problems: Active and Suspected Problems Chest pain (Acute) Acute respiratory failure with hypoxia (Acute) PNA (pneumonia) (Acute) Acute kidney injury (Acute) Subjective: No significant change overall. Patient had hemodialysis. No fever. Intubated Objective: General: Alert, Oriented x3, Cooperative HEENT: Atraumatic, PERRLA, EOMI, Normocephalic Neck: Supple, No JVD, Negative Carotid Bruits Lungs: Diminished, - - On vent support. On 30% FiO2 Cardiovascular: Regular rate, Regular Rhythm, Normal S1, Normal S2, No murmurs Abdomen: Bowel Sounds Present, Soft, Non Tender, : Anuric. On hemodialysis PEG tube feeding Extremities: Capillary Refill Less than 3 Seconds, Edema Skin: No rashes, No breakdown Musculoskeletal: No Tenderness to Palpation of Joints or Extremities, Arthritic Changes Neurological: Cranial nerves II-XII grossly intact. Vitals/I&O's: Vital Signs Temp Pulse Resp BP Pulse Ox 98.1 F 88 17 116/75 92 06/09/18 04:00 06/09/18 07:11 06/09/18 07:11 06/09/18 07:00 06/09/18 07:10 Oxygen Flow Rate (L/min) 50 Oxygen Delivery Method Mechanical Ventilator Weight: 291 lb 7.218 oz Body Mass Index (BMI) 49.7 Finger Stick Blood Glucose 150 Intake and Output for Last 24 Hours 06/07/18 06/08/18 06/09/18 23:59 23:59 23:59 Intake Total 629.4 / 629.4 2375 / 2375 430.3 / 430.3 Output Total 185 / 185 2335 / 2335 100 / 100 Balance 444.4 / 444.4 40 / 40 330.3 / 330.3 Laboratory Results 06/07/18 04:10: Diff Path Review Reviewed 06/08/18 08:15: Sodium 140, Potassium 3.9, Chloride 100, Carbon Dioxide 27.0, Anion Gap 13, BUN 74 H, Creatinine 4.98 H, Estim Creat Clear Calc 11.67, Est GFR (MDRD) Af Amer 12 L, Est GFR (MDRD) Non-Af 10 L, BUN/Creatinine Ratio 14.9, Glucose 178 H, Calcium 8.9 06/08/18 11:41: POC Glucose 143 H 06/08/18 17:17: POC Glucose 134 H 06/08/18 21:47: POC Glucose 211 H 06/08/18 23:38: POC Glucose 220 H 06/09/18 05:08: POC Glucose 169 H Current Medications Acetaminophen (Tylenol Liquid) 650 mg GT Q4H PRN PRN PRN Reason: T > 100.5 F Last Admin: 05/25/18 01:27 Dose: 650 mg Albuterol Sulfate (Ventolin Aerosols) 2.5 mg INHALATION Q2H PRN PRN PRN Reason: SOB &/OR WHEEZING Last Admin: 06/04/18 18:40 Dose: 2.5 mg Albuterol/Ipratropium (Duoneb) 3 ml INHALATION Q4HWA.RT [facility] Last Admin: 06/09/18 06:37 Dose: 3 ml Calamine/Phenol (Calmoseptine Ointment) 1 applic TOPICAL BID [facility]; Protocol Last Admin: 06/08/18 21:39 Dose: 1 applicatio Chlorhexidine Gluconate () 1 each TOPICAL DAILY [facility] Last Admin: 06/09/18 02:44 Dose: 1 each Chlorhexidine Gluconate () 15 ml PO BID [facility] Last Admin: 06/08/18 21:53 Dose: 15 ml Dextrose (D50w Syringe) 0 gm IV X1 PRN; Protocol PRN Reason: Hypoglycemia Famotidine (Pepcid) 20 mg GT DAILY [facility] Last Admin: 06/08/18 14:45 Dose: 20 mg Glucagon () 1 mg IM .X1 PRN PRN Reason: Hypoglycemia Heparin Sodium (Porcine) (Heparin Na) 5,000 unit SC Q8 [facility] Last Admin: 06/09/18 05:10 Dose: 5,000 unit Sodium Chloride () 250 mls @ 15 mls/hr IV .[id number] PRN PRN Reason: SALINE FLUSH Last Admin: 06/07/18 10:09 Dose: 15 mls/hr Fentanyl () 100 mls @ 15 mls/hr IV .Q20H [facility] Last Admin: 06/09/18 02:44 Dose: 15 mls/hr Enteral Nutritional Formula (Vital Af 1.2 Glenn Liquid) 1,000 mls @ 60 mls/hr GT .[id number] [facility] Last Admin: 06/09/18 02:09 Dose: Not Given Levofloxacin (Levaquin Iv) 500 mg in 100 mls @ 100 mls/hr IV Q48 [facility] Last Admin: 06/07/18 10:08 Dose: 100 mls/hr Insulin Glargine (Lantus (Bkc)) 60 units SC BID [facility] Last Admin: 06/08/18 21:47 Dose: 60 u Insulin Human Lispro (Humalog Kwikpen (Bkc)) 0 unit SC Q6 [facility]; Protocol Last Admin: 06/09/18 05:09 Dose: 4 u Nystatin (Mycostatin Powder) 1 applic TOPICAL TID [facility]; Protocol Last Admin: 06/09/18 05:09 Dose: 1 applic Ondansetron HCl (Zofran) 4 mg IV Q4H PRN PRN PRN Reason: NAUSEA/VOMITING Last Admin: 06/09/18 04:20 Dose: 4 mg Polyethylene Glycol (Miralax) 17 gm GT DAILY [facility] Last Admin: 06/08/18 10:56 Dose: Not Given Risperidone (Risperdal) 2 mg GT BID [facility] Last Admin: 06/08/18 21:41 Dose: 2 mg Risperidone (Risperdal) 0.5 mg GT BID [facility] Last Admin: 06/08/18 21:41 Dose: 0.5 mg Sodium Chloride () 5 - 15 ml IV UD PRN PRN Reason: SALINE FLUSH Last Admin: 06/07/18 12:27 Dose: 15 ml Sodium Chloride () 10 ml IV UD PRN PRN Reason: Dialysis Catheter Flush Medical Necessity - Tobacco Use Smoking Status: Never smoker Tobacco Use: Non-smoker Assessment/Plan All Active Problems Chest pain (Acute) Acute respiratory failure with hypoxia (Acute) PNA (pneumonia) (Acute) Acute kidney injury (Acute) This is a 57-year-old female who is being admitted for acute hypoxic and hypercarbic respiratory failure. Initially, patient was put on BiPAP on PCU but later on was intubated and transferred to ICU on 05/24/2018. Blood cultures x2, urine culture, respiratory panel ordered. Patient also had chest pain on and off, on exertion and relieved with rest, typical angina but had negative cardiac cath in 2013. Serial troponin enzymes showed first 1 0.05 indeterminant but rest negative. ECHO reported no wall motion abnormality. 1. Acute hypoxic and hypercapnic respiratory failure due to severe multifocal community acquired pneumonia. remains intubated. She failed spontaneous breathing trial and ENT Dr. Rice consulted for tracheostomy. Patient was intubated on 05/24/2018. Discussed with ENT and plan is for tracheostomy next week. Had PEG tube on 06/07/2018. Blood cultures showed no growth and urine grew Klebsiella pneumonia. IV levaquin 500 mg every 48 hour. 14-day Awaiting guardianship by managing attorney. Awaiting guardianship. on propofol and fentanyl for sedation 2. Severe multifocal community-acquired pneumonia: Sputum culture showed mixed normal respiratory addison with no Selin. 3. Acute renal failure, most probably secondary to ATN: Nephrology on board. had tunnelled dialysis catheter placed for jail dialysis Patient is currently dialysis dependent. 4. Acute on chronic diastolic heart failure 2D echo showed normal left ventricular size and function with EF of 55% in stage I diastolic dysfunction. Requiring dialysis for fluid removal. Urine output is not adequate 65 mL yesterday. About 3.5 L was fluid removed by dialysis. Anuric 5. Type 2 diabetes mellitus: On Lantus 60IU bid and insulin sliding scale. 6. Depression and anxiety, PTSD, morbid obesity: Multiple comorbidities complicates the present care and expect difficult and delay recovery DVT prophylaxis: Heparin Code Visit Inpatient E&M: [id number] [facility] Hosp L3
[2018-06-09] MEDS: Menthol/Lanolin/Calamine/Znox 113 GM Tube 1 APPLIC TOPICAL ×2 (10:28→22:28)
[2018-06-09] MEDS: RisperiDONE 2 MG Tablet GT ×2 (10:29→22:31)
[2018-06-09] MEDS: Chlorhexidine 15 ML PO ×2 (10:29→22:28)
[2018-06-09] MEDS: RisperiDONE 0.5 MG Tablet GT ×2 (10:29→22:31)
[2018-06-09] MEDS: Famotidine 20 MG Tablet GT (10:30)
[2018-06-09] MEDS: levoFLOXacin IV 500 MG/100 ML BAG 100 MG IV (10:31)
[2018-06-09 12:55] LABS: Bedside Glucose 186 mg/dL (70-110)
--- NOTE | 2018-06-09 17:25 | PCM.PN.REN ---
Patient Problems: Active and Suspected Problems Chest pain (Acute) Acute respiratory failure with hypoxia (Acute) PNA (pneumonia) (Acute) Acute kidney injury (Acute) Subjective: No acute event. Remains intubated. Awake alert. Follows commands - Physical Exam General: Alert, No apparent distress HEENT: Atraumatic Oral: Moist Mucosa Neck: Supple, No JVD Lungs: Clear to auscultation, - - On vent support Cardiovascular: Regular rate, Regular Rhythm, Normal S1, Normal S2 Abdomen: Non Tender Extremities: No clubbing, No cyanosis, No edema Skin: No rashes Musculoskeletal: No Tenderness to Palpation of Joints or Extremities Lymphatic: No Cervical, Supraclavicular, or Inguinal Adenopathy Neurological: Cranial nerves II-XII grossly intact, Neuro grossly intact Psych/Mental Status: Appropriate Vital Signs Temp Pulse Resp BP Pulse Ox 99.3 F H 75 16 108/69 94 06/09/18 12:00 06/09/18 16:08 06/09/18 16:08 06/09/18 16:00 06/09/18 16:08 Oxygen Flow Rate (L/min) 50 Oxygen Delivery Method Mechanical Ventilator Weight: 132.2 kg Body Mass Index (BMI) 49.7 Finger Stick Blood Glucose 150 Intake and Output for Last 24 Hours 06/07/18 06/08/18 06/09/18 23:59 23:59 23:59 Intake Total 629.4 / 629.4 2375 / 2375 973.3 / 973.3 Output Total 185 / 185 2335 / 2335 250 / 250 Balance 444.4 / 444.4 40 / 40 723.3 / 723.3 POC Glucose 06/09/18 06/09/18 06/08/18 12:43 05:08 23:38 POC Glucose 186 H 169 H 220 H 06/08/18 06/08/18 21:47 17:17 POC Glucose 211 H 134 H Medical Necessity - Tobacco Use Smoking Status: Never smoker Tobacco Use: Non-smoker Assessment/Plan All Active Problems Chest pain (Acute) Acute respiratory failure with hypoxia (Acute) PNA (pneumonia) (Acute) Acute kidney injury (Acute) 1-Acute kidney injury. Normal creatinine 2014. Patient presented with creatinine 1.07 mg/dL. UA showed 100 protein and 100 blood but no RBCs or white cell count. Acute kidney injury is from ATN No recovery of kidney function. Remains oliguric Patient is currently hemodialysis dependent for metabolic and volume support. Dialysis started on May 28. Hemodialysis session was on June 08. No need for hemodialysis today. Next hemodialysis session will be June 11 unless kidney function recovers Please keep mean arterial pressure more than 65. Avoid nephrotoxic. Dose medications for patient on hemodialysis Continue to monitor for kidney function recovery 2-Acute respiratory failure from bilateral pneumonia. Ventilator support as per the wave solder offbearer. Renal team will continue to follow. Please call with any question or concern at my cell phone #[phone] Salima Cervantes MD
[2018-06-09] MEDS: Vital AF 1.2 Cal Liquid 1,000 ML 60 ML GT (17:57)
[2018-06-09 18:16] LABS: Bedside Glucose 151 mg/dL (70-110)
[2018-06-09 22:40] LABS: Bedside Glucose 171 mg/dL (70-110)
[2018-06-10] VITALS (37 sets, daily range): BP systolic 96–128; BP diastolic 59–85; PULSE 66–94; RESP 13–21; TEMP 36.6–37.2; O2SAT 90–99
[2018-06-10] MEDS: Insulin Lispro 100 UNIT/ML INSULN.PEN SC ×5 (00:52→23:01)
[2018-06-10 01:05] LABS: Bedside Glucose 190 mg/dL (70-110)
[2018-06-10] MEDS: CHLORHEXIDINE GLUC 2% CLOTH 1 EACH TOWELETTE TOPICAL (04:41)
[2018-06-10 04:49] LABS: Anion Gap 15 (5-15); BUN 75 mg/dL (7-18); BUN/Creat Ratio 18.7 RATIO (10-20); Calcium,Total 8.9 mg/dL (8.5-10.1); Chloride 98 mmol/L (98-107); Creatinine, Serum 4.02 mg/dL (0.55-1.02); EST Glomerular Filtration Rate 12 mL/min (>60); Est Glom Filt Rate - Afr Amer 15 mL/min (>60); Estimated Creatinine Clearance 14.45 ml/min; Glucose 189 mg/dL (74-106); Potassium 4.2 mmol/L (3.5-5.1); Sodium Level 139 mmol/L (136-145)
[2018-06-10 04:52] LABS: Absolute Lymphocyte Count 2.06 X10^3/ul (0.83-4.51); Basophil# 0.12 X10^3/uL; Basophil% 1.1 % (0-1); Eosinophil# 0.26 X10^3/uL; Eosinophils% 2.4 % (0-5); Hemoglobin 10.6 g/dl (12.0-15.0); Lymphocyte # 2.06 X10^3/ul (4.0); Mean Corp Hgb Conc 31.2 g/gl (32-36); Mean Corpuscular Hgb 25.6 pg (27.0-32.0); Mean Corpuscular Volume 82.1 fL (81-99); Mean Platelet Vol. 9.1 fl (6.2-12.0); Monocyte# 1.34 X10^3/uL; Monocyte% 12.4 % (0-10); Neutrophil # 6.95 X10^3/uL (2.7-7.7); Neutrophil % 64.1 % (47-70); Platelet Count 260 K/mm3 (150-450); RBC Distribution Width CV 14.5 % (11.6-14.6); Red Blood Count 4.14 M/mm3 (4.2-5.4); White Blood Count 10.8 K/mm3 (4.4-11.0)
[2018-06-10 05:18] LABS: POSITIVE COUNT NO; POSITIVE DIFFERENTIAL NO; POSITIVE MORPHOLOGY NO
[2018-06-10] MEDS: Nystatin Powder 15gm Bottle 1 APPLIC TOPICAL ×3 (05:21→21:41)
[2018-06-10] MEDS: Heparin Injection (Vial) 5,000 UNIT/ML VIAL 5000 UNIT SC ×3 (05:21→21:41)
[2018-06-10] MEDS: 0.9% NaCl Peripheral Flush Adult/Peds IV (05:22)
[2018-06-10 05:31] LABS: Bedside Glucose 170 mg/dL (70-110)
--- NOTE | 2018-06-10 06:59 | PCM.PN.INT ---
Subjective: The patient was seen and examined at the bedside this morning. Events from the last 24 hours have been reviewed. The patient is currently afebrile, hemodynamically stable and maintaining appropriate oxygen saturations with an FiO2 requirement of 30%. No further issues have been identified. Objective: The patient's most recent lab work, culture data and imaging studies have all been personally reviewed. Infectious workup was noted to be negative with the exception of a urine culture which was positive for Klebsiella pneumonia. Surface echocardiogram dated May 25 revealed evidence of stage I diastolic dysfunction with an ejection fraction of 55%. General: Alert, No apparent distress, - - Remains intubated and mechanically ventilated. HEENT: Atraumatic, PERRLA, Normocephalic Oral: No Gingival or Mucosal Lesions/ Ulcerations, - - Endotracheal tube remains in place. Neck: Supple, No Nodes, Trachea Midline Lungs: No rhonchi, No wheeze, No rales, Diminished Cardiovascular: Regular rate, Regular Rhythm, Normal S1, Normal S2, No murmurs Abdomen: Bowel Sounds Present, Soft, Non Tender, Obese, - - PEG site is C/D/I Extremities: No clubbing, No cyanosis Skin: - - No significant change from previous. Musculoskeletal: No Tenderness to Palpation of Joints or Extremities Lymphatic: No Cervical, Supraclavicular, or Inguinal Adenopathy Neurological: - - No focal neurological deficits. Psych/Mental Status: Flat Affect Vital Signs Temp Pulse Resp BP Pulse Ox 36.7 C 72 16 111/67 92 06/10/18 00:00 06/10/18 06:00 06/10/18 06:00 06/10/18 06:00 06/10/18 06:00 Oxygen Flow Rate (L/min) 50 Oxygen Delivery Method Mechanical Ventilator Weight: 291 lb 10.745 oz Body Mass Index (BMI) 49.7 Finger Stick Blood Glucose 150 Intake and Output for Last 24 Hours 06/08/18 06/09/18 06/10/18 23:59 23:59 23:59 Intake Total 2375 / 2375 1436.3 / 1436.3 1167.2 / 1167.2 Output Total 2335 / 2335 400 / 400 200 / 200 Balance 40 / 40 1036.3 / 1036.3 967.2 / 967.2 Labs (Last 48 Hours) 06/07/18 06/08/1819 04:10 08:15 11:41 WBC RBC Hgb Hct MCV MCH MCHC RDW RDW Differential Plt Count MPV Immature Gran % (Auto) Neut % (Auto) Lymph % (Auto) [place] % (Auto) Eos % (Auto) Baso % (Auto) Absolute Neuts (auto) Absolute Lymphs (auto) Total Counted Diff Path Review Reviewed Sodium 140 Potassium 3.9 Chloride 100 Carbon Dioxide 27.0 Anion Gap 13 BUN 74 H Creatinine 4.98 H Estim Creat Clear Calc 11.67 Est GFR (MDRD) Af Amer 12 L Est GFR (MDRD) Non-Af 10 L BUN/Creatinine Ratio 14.9 Glucose 178 H Calcium 8.9 POC Glucose 143 H 06/08/18 06/08/18 06/08/18 17:17 21:47 23:38 WBC RBC Hgb Hct MCV MCH MCHC RDW RDW Differential Plt Count MPV Immature Gran % (Auto) Neut % (Auto) Lymph % (Auto) [place] % (Auto) Eos % (Auto) Baso % (Auto) Absolute Neuts (auto) Absolute Lymphs (auto) Total Counted Diff Path Review Sodium Potassium Chloride Carbon Dioxide Anion Gap BUN Creatinine Estim Creat Clear Calc Est GFR (MDRD) Af Amer Est GFR (MDRD) Non-Af BUN/Creatinine Ratio Glucose Calcium POC Glucose 134 H 211 H 220 H 06/09/18 06/09/18 06/09/18 05:08 12:43 17:55 WBC RBC Hgb Hct MCV MCH MCHC RDW RDW Differential Plt Count MPV Immature Gran % (Auto) Neut % (Auto) Lymph % (Auto) [place] % (Auto) Eos % (Auto) Baso % (Auto) Absolute Neuts (auto) Absolute Lymphs (auto) Total Counted Diff Path Review Sodium Potassium Chloride Carbon Dioxide Anion Gap BUN Creatinine Estim Creat Clear Calc Est GFR (MDRD) Af Amer Est GFR (MDRD) Non-Af BUN/Creatinine Ratio Glucose Calcium POC Glucose 169 H 186 H 151 H 06/09/18 06/10/18 06/10/18 22:16 00:50 04:20 WBC 10.8 RBC 4.14 L Hgb 10.6 L Hct 34.0 L MCV 82.1 MCH 25.6 L MCHC 31.2 L RDW 14.5 RDW Differential 43.0 Plt Count 260 MPV 9.1 Immature Gran % (Auto) 1.000 H Neut % (Auto) 64.1 Lymph % (Auto) 19.0 [place] % (Auto) 12.4 H Eos % (Auto) 2.4 Baso % (Auto) 1.1 H Absolute Neuts (auto) 7.0 Absolute Lymphs (auto) 2.06 Total Counted Not Reportable Diff Path Review Sodium Potassium Chloride Carbon Dioxide Anion Gap BUN Creatinine Estim Creat Clear Calc Est GFR (MDRD) Af Amer Est GFR (MDRD) Non-Af BUN/Creatinine Ratio Glucose Calcium POC Glucose 171 H 190 H 06/10/18 06/10/18 04:20 05:20 WBC RBC Hgb Hct MCV MCH MCHC RDW RDW Differential Plt Count MPV Immature Gran % (Auto) Neut % (Auto) Lymph % (Auto) [place] % (Auto) Eos % (Auto) Baso % (Auto) Absolute Neuts (auto) Absolute Lymphs (auto) Total Counted Diff Path Review Sodium 139 Potassium 4.2 Chloride 98 Carbon Dioxide 26.0 Anion Gap 15 BUN 75 H Creatinine 4.02 H Estim Creat Clear Calc 14.45 Est GFR (MDRD) Af Amer 15 L Est GFR (MDRD) Non-Af 12 L BUN/Creatinine Ratio 18.7 Glucose 189 H Calcium 8.9 POC Glucose 170 H Clinical Impression(s) from Imaging Studies Chest X-Ray 05/23/18 15:15 IMPRESSION: Findings suggestive CHF with superimposed atelectasis and/or infiltrate in the right midlung. Electronically Signed: Royer Rowe MD at 15:56 EST , Service support , Chest X-Ray 05/24/18 10:30 IMPRESSION: Findings consistent with CHF. This appears worsening with areas of consolidation at the left lung base. Electronically Signed: Michael Braxton DO at 17:08 EST Tel [phone], Service support , KUB X-Ray 05/24/18 14:46 IMPRESSION: The tip of the orogastric tube is in the body of the stomach. Electronically Signed: Royer Rowe MD at 15:43 EST , Service support , Chest X-Ray 05/24/18 15:10 IMPRESSION: The tip of the endotracheal tube is at 6.3 cm proximal to the ehsan. Electronically Signed: Royer Rowe MD at 15:44 EST , Service support , Chest X-Ray 05/25/18 05:11 IMPRESSION: The tip of the endotracheal tube is at 2.4 sinus proximal to the ehsan. The remainder the examination is unchanged. Electronically Signed: Royer Rowe MD at 8:15 EST , Service support , Chest CT 05/25/18 09:38 IMPRESSION: Infiltrates in both lungs worse in the right upper lobe and both lower lobes. Electronically Signed: Royer Rowe MD at 11:32 EST , Service support , Chest X-Ray 05/26/18 10:28 IMPRESSION: Stable interval exam. Placement of right subclavian central venous catheter without evidence of pneumothorax Electronically Signed: Rocco Zepeda DO at 11:52 EST Tel , Service support , Chest X-Ray 05/28/18 05:55 IMPRESSION: Stable findings. Persistent bilateral pulmonary infiltrates, larger on the right. at 0514 Reported and signed by: West Saini MD Electronically Signed: West Saini, at 5:13 EST Tel , Service support , Chest X-Ray 05/28/18 15:06 IMPRESSION: All lines are in good position. Progressive bilateral infiltrations. Electronically Signed: Royer Rowe MD at 16:01 EST , Service support , Chest X-Ray 05/30/18 08:00 IMPRESSION: Stable examination. Electronically Signed: Royer Rowe MD at 13:52 EST , Service support , Chest X-Ray 06/04/18 08:44 IMPRESSION: All the support tubes are unchanged. Prior study, there has been improved aeration of both lungs as described. Electronically Signed: Royer Rowe MD at 13:50 EST , Service support , Chest X-Ray 06/04/18 17:15 Chest X-Ray 06/07/18 14:45 IMPRESSION: Stable examination. Electronically Signed: Royer Rowe, at 15:36 EST , Service support , Medical Necessity - Tobacco Use Smoking Status: Never smoker Tobacco Use: Non-smoker Assessment/Plan All Active Problems Chest pain (Acute) Acute respiratory failure with hypoxia (Acute) PNA (pneumonia) (Acute) Acute kidney injury (Acute) RECOMMENDATIONS: 1. Continue tube feeds and basal insulin regimen. 2. Continue spontaneous mode of mechanical ventilation as tolerated. 3. Continue hemodialysis per nephrology recommendations. 4. Continue bronchodilators 5. Continue appropriate ICU prophylaxis 6. Await tracheostomy placement IMPRESSIONS: 1. Acute combined respiratory failure secondary to severe community-acquired pneumonia The patient has been on treatment for multifocal pneumonia, and although improving, continues to have a significant ventilator requirement. At this time, the patient has completed her antibiotic treatment course. We will continue to wean her FiO2 and PEEP as tolerated. Given the patient's inability to be weaned from mechanical ventilation, she has already undergone percutaneous PEG tube placement and is awaiting tracheostomy placement early next week. Volume optimization will be continued by hemodialysis per nephrology recommendations. 2. Acute kidney injury Likely secondary to ATN, as the patient was initially diuresed on admission to the hospital and also developed a component of hypotension on arrival to the ICU. Nephrology is currently following. The patient has been responding to hemodialysis support. The patient's temporary hemodialysis catheter was removed and a tunneled catheter was subsequently placed on June 04. Recommend continuing dialysis and volume optimization per nephrology recommendations. 3. Indeterminate troponin/acute on chronic diastolic heart failure Echocardiogram revealed no wall motion abnormalities. Nephrology is following to assist with volume management. 4. Morbid obesity/diabetes mellitus/anxiety/depression/PTSD Complicates care, management, recovery and prognosis. Continue Accu-Cheks and sliding scale insulin coverage. Tube feeds will be continued. This note was generated with [employer] dictation software. It may contain incorrect words, spelling, and punctuation that were not noted in checking the note before signing. Code Visit Inpatient E&M: [id number] [facility] Hosp L3
[2018-06-10] MEDS: Ipratropium/Albuterol Sulfate 3 ML AMPUL.NEB INHALATION ×4 (07:31→18:55)
--- NOTE | 2018-06-10 08:22 | PN_ITS ---
Patient Problems: Active and Suspected Problems Chest pain (Acute) Acute respiratory failure with hypoxia (Acute) PNA (pneumonia) (Acute) Acute kidney injury (Acute) Subjective: No significant change in status. Heart rate is controlled. Blood pressure in 110s. Still anuric on hemodialysis. Plan for tracheostomy early next week. Objective: General: Alert, Oriented x3, Cooperative HEENT: Atraumatic, PERRLA, EOMI, Normocephalic Neck: Supple, No JVD, Negative Carotid Bruits Lungs: Air entry diminished, On vent support. On 30% FiO2 Cardiovascular: Regular rate, Regular Rhythm, Normal S1, Normal S2, No murmurs Abdomen: Bowel Sounds Present, Soft, Non Tender, : Anuric. On hemodialysis. PEG tube feeding Extremities: Capillary Refill Less than 3 Seconds, Edema Skin: No rashes, No breakdown Musculoskeletal: No Tenderness to Palpation of Joints or Extremities, Arthritic Changes Neurological: Cranial nerves II-XII grossly intact. Vitals/I&O's: Vital Signs Temp Pulse Resp BP Pulse Ox 98.1 F 83 18 112/66 95 06/10/18 00:00 06/10/18 08:01 06/10/18 08:01 06/10/18 07:00 06/10/18 08:00 Oxygen Flow Rate (L/min) 50 Oxygen Delivery Method Mechanical Ventilator Weight: 291 lb 10.745 oz Body Mass Index (BMI) 49.7 Finger Stick Blood Glucose 150 Intake and Output for Last 24 Hours 06/08/18 06/09/18 06/10/18 23:59 23:59 23:59 Intake Total 2375 / 2375 1436.3 / 1436.3 1167.2 / 1167.2 Output Total 2335 / 2335 400 / 400 200 / 200 Balance 40 / 40 1036.3 / 1036.3 967.2 / 967.2 Laboratory Results 06/09/18 12:43: POC Glucose 186 H 06/09/18 17:55: POC Glucose 151 H 06/09/18 22:16: POC Glucose 171 H 06/10/18 00:50: POC Glucose 190 H 06/10/18 04:20: WBC 10.8, RBC 4.14 L, Hgb 10.6 L, Hct 34.0 L, MCV 82.1, MCH 25.6 L, MCHC 31.2 L, RDW 14.5, RDW Differential 43.0, Plt Count 260, MPV 9.1, Immature Gran % (Auto) 1.000 H, Neut % (Auto) 64.1, Lymph % (Auto) 19.0, [place] % (Auto) 12.4 H, Eos % (Auto) 2.4, Baso % (Auto) 1.1 H, Absolute Neuts (auto) 7.0, Absolute Lymphs (auto) 2.06, Total Counted Not Reportable 06/10/18 04:20: Sodium 139, Potassium 4.2, Chloride 98, Carbon Dioxide 26.0, Anion Gap 15, BUN 75 H, Creatinine 4.02 H, Estim Creat Clear Calc 14.45, Est GFR (MDRD) Af Amer 15 L, Est GFR (MDRD) Non-Af 12 L, BUN/Creatinine Ratio 18.7, Glucose 189 H, Calcium 8.9 06/10/18 05:20: POC Glucose 170 H Current Medications Acetaminophen (Tylenol Liquid) 650 mg GT Q4H PRN PRN PRN Reason: T > 100.5 F Last Admin: 05/25/18 01:27 Dose: 650 mg Albuterol Sulfate (Ventolin Aerosols) 2.5 mg INHALATION Q2H PRN PRN PRN Reason: SOB &/OR WHEEZING Last Admin: 06/04/18 18:40 Dose: 2.5 mg Albuterol/Ipratropium (Duoneb) 3 ml INHALATION Q4HWA.RT RUBI Last Admin: 06/10/18 07:31 Dose: 3 ml Calamine/Phenol (Calmoseptine Ointment) 1 applic TOPICAL BID RUBI; Protocol Last Admin: 06/09/18 22:28 Dose: 1 applicatio Chlorhexidine Gluconate () 1 each TOPICAL DAILY RUBI Last Admin: 06/10/18 04:41 Dose: 1 each Chlorhexidine Gluconate () 15 ml PO BID RUBI Last Admin: 06/09/18 22:28 Dose: 15 ml Dextrose (D50w Syringe) 0 gm IV X1 PRN; Protocol PRN Reason: Hypoglycemia Famotidine (Pepcid) 20 mg GT DAILY [facility] Last Admin: 06/09/18 10:30 Dose: 20 mg Glucagon () 1 mg IM .X1 PRN PRN Reason: Hypoglycemia Heparin Sodium (Porcine) (Heparin Na) 5,000 unit SC Q8 [facility] Last Admin: 06/10/18 05:21 Dose: 5,000 unit Sodium Chloride () 250 mls @ 15 mls/hr IV .[id number] PRN PRN Reason: SALINE FLUSH Last Admin: 06/07/18 10:09 Dose: 15 mls/hr Fentanyl () 100 mls @ 15 mls/hr IV .Q20H RUBI Last Admin: 06/09/18 02:44 Dose: 15 mls/hr Enteral Nutritional Formula (Vital Af 1.2 Glenn Liquid) 1,000 mls @ 60 mls/hr GT .[id number] [facility] Last Admin: 06/10/18 08:01 Dose: Not Given Insulin Glargine (Lantus (Bk)) 60 units SC BID [facility] Last Admin: 06/09/18 22:30 Dose: 60 u Insulin Human Lispro (Humalog Kwikpen ([facility])) 0 unit SC Q6 [facility]; Protocol Last Admin: 06/10/18 05:21 Dose: 4 u Nystatin (Mycostatin Powder) 1 applic TOPICAL TID [facility]; Protocol Last Admin: 06/10/18 05:21 Dose: 1 applic Ondansetron HCl (Zofran) 4 mg IV Q4H PRN PRN PRN Reason: NAUSEA/VOMITING Last Admin: 06/09/18 04:20 Dose: 4 mg Polyethylene Glycol (Miralax) 17 gm GT DAILY [facility] Last Admin: 06/09/18 10:28 Dose: Not Given Risperidone (Risperdal) 2 mg GT BID [facility] Last Admin: 06/09/18 22:31 Dose: 2 mg Risperidone (Risperdal) 0.5 mg GT BID [facility] Last Admin: 06/09/18 22:31 Dose: 0.5 mg Sodium Chloride () 5 - 15 ml IV UD PRN PRN Reason: SALINE FLUSH Last Admin: 06/10/18 05:22 Dose: 10 ml Sodium Chloride () 10 ml IV UD PRN PRN Reason: Dialysis Catheter Flush Medical Necessity - Tobacco Use Smoking Status: Never smoker Tobacco Use: Non-smoker Assessment/Plan All Active Problems Chest pain (Acute) Acute respiratory failure with hypoxia (Acute) PNA (pneumonia) (Acute) Acute kidney injury (Acute) This is a 57-year-old female who is being admitted for acute hypoxic and hypercarbic respiratory failure. Initially, patient was put on BiPAP on PCU but later on was intubated and transferred to ICU on 05/24/2018. Blood cultures x2, urine culture, respiratory panel ordered. Patient also had chest pain on and off, on exertion and relieved with rest, typical angina but had negative cardiac cath in 2013. Serial troponin enzymes showed first 1 0.05 indeterminant but rest negative. ECHO reported no wall motion abnormality. 1. Acute hypoxic and hypercapnic respiratory failure due to severe multifocal community acquired pneumonia. * remains intubated. She failed spontaneous breathing trial and ENT Dr. Rice consulted for tracheostomy. Patient was intubated on 05/24/2018. Discussed with ENT and plan is for tracheostomy next week. Had PEG tube on 06/07/2018. * Blood cultures showed no growth and urine grew Klebsiella pneumonia. * Levaquin is discontinued on 06/09/2018. * Awaiting guardianship by patent attorney. Awaiting guardianship. * on propofol and fentanyl for sedation 2. Severe multifocal community-acquired pneumonia: Sputum culture showed mixed normal respiratory addison with no Selin. 3. Acute renal failure, most probably secondary to ATN: * Nephrology on board. 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 4. Acute on chronic diastolic heart failure * 2D echo showed normal left ventricular size and function with EF of 55% in stage I diastolic dysfunction. * Requiring dialysis for fluid removal. Urine output is not adequate 65 mL yesterday. About 3.5 L was fluid removed by dialysis. Anuric 5. Type 2 diabetes mellitus: On Lantus 60IU bid and insulin sliding scale. 6. Depression and anxiety, PTSD, morbid obesity: Multiple comorbidities complicates the present care and expect difficult and delay recovery DVT prophylaxis: Heparin Code Visit Inpatient E&M: 86660 Subs Hosp L2
[2018-06-10] MEDS: RisperiDONE 0.5 MG Tablet GT ×2 (11:00→21:41)
[2018-06-10] MEDS: RisperiDONE 2 MG Tablet GT ×2 (11:00→21:40)
[2018-06-10] MEDS: Famotidine 20 MG Tablet GT (11:00)
[2018-06-10] MEDS: Chlorhexidine 15 ML PO ×2 (11:01→21:44)
[2018-06-10] MEDS: Menthol/Lanolin/Calamine/Znox 113 GM Tube 1 APPLIC TOPICAL ×2 (11:02→21:45)
[2018-06-10] MEDS: Polyethylene Glycol 3350 17 GM PACKET GT (11:03)
[2018-06-10 11:51] LABS: Bedside Glucose 211 mg/dL (70-110)
--- NOTE | 2018-06-10 16:38 | PCM.PN.REN ---
Patient Problems: Active and Suspected Problems Chest pain (Acute) Acute respiratory failure with hypoxia (Acute) PNA (pneumonia) (Acute) Acute kidney injury (Acute) Subjective: No acute events. Remains intubated Patient made 350 cc of urine output in the last 5 hours. - Physical Exam General: Alert, No apparent distress HEENT: Atraumatic Oral: Moist Mucosa Neck: Supple, No JVD Lungs: Clear to auscultation, - - On vent support Cardiovascular: Regular rate, Regular Rhythm, Normal S1, Normal S2 Abdomen: Bowel Sounds Present, Soft, Non Tender Extremities: No clubbing, No cyanosis, No edema Skin: No rashes Lymphatic: No Cervical, Supraclavicular, or Inguinal Adenopathy Psych/Mental Status: Appropriate Vital Signs Temp Pulse Resp BP Pulse Ox 98.5 F 86 18 106/64 95 06/10/18 12:00 06/10/18 15:52 06/10/18 15:52 06/10/18 14:00 06/10/18 15:52 Oxygen Flow Rate (L/min) 50 Oxygen Delivery Method Mechanical Ventilator Weight: 132.3 kg Body Mass Index (BMI) 49.7 Finger Stick Blood Glucose 150 Intake and Output for Last 24 Hours 06/08/18 06/09/18 06/10/18 23:59 23:59 23:59 Intake Total 2375 / 2375 1436.3 / 1436.3 1601.2 / 1601.2 Output Total 2335 / 2335 400 / 400 230 / 230 Balance 40 / 40 1036.3 / 1036.3 1371.2 / 1371.2 Laboratory Tests Past 24 Hrs 06/10/18 06/10/18 04:20 04:20 WBC 10.8 RBC 4.14 L Hgb 10.6 L Hct 34.0 L MCV 82.1 MCH 25.6 L MCHC 31.2 L RDW 14.5 RDW Differential 43.0 Plt Count 260 MPV 9.1 Immature Gran % (Auto) 1.000 H Neut % (Auto) 64.1 Lymph % (Auto) 19.0 [place] % (Auto) 12.4 H Eos % (Auto) 2.4 Baso % (Auto) 1.1 H Absolute Neuts (auto) 7.0 Absolute Lymphs (auto) 2.06 Total Counted Not Reportable Sodium 139 Potassium 4.2 Chloride 98 Carbon Dioxide 26.0 Anion Gap 15 BUN 75 H Creatinine 4.02 H Estim Creat Clear Calc 14.45 Est GFR (MDRD) Af Amer 15 L Est GFR (MDRD) Non-Af 12 L BUN/Creatinine Ratio 18.7 Glucose 189 H Calcium 8.9 POC Glucose 06/10/18 06/10/18 06/10/18 11:35 05:20 00:50 POC Glucose 211 H 170 H 190 H 06/09/18 06/09/18 22:16 17:55 POC Glucose 171 H 151 H Medical Necessity - Tobacco Use Smoking Status: Never smoker Tobacco Use: Non-smoker Assessment/Plan All Active Problems Chest pain (Acute) Acute respiratory failure with hypoxia (Acute) PNA (pneumonia) (Acute) Acute kidney injury (Acute) 1-Acute kidney injury. Normal creatinine 2014. Patient presented with creatinine 1.07 mg/dL. UA showed 100 protein and 100 blood but no RBCs or white cell count. Acute kidney injury is from ATN . Patient is currently hemodialysis dependent for metabolic and volume support. Dialysis started on May 28. Last hemodialysis session was on June 08 Kidney function might be recovering. Urine output has increased in the last 5 hours. Creatinine today 4.0. We will continue to monitor for kidney function recovery. No need for hemodialysis today. We will evaluate the need of hemodialysis tomorrow. Please keep mean arterial pressure more than 65. Avoid nephrotoxic. 2-Acute respiratory failure from bilateral pneumonia. Ventilator support as per the licensed nurse practitioner. Renal team will continue to follow. Please call with any question or concern at my cell phone #[phone] Salima Cervantes MD
[2018-06-10] MEDS: Vital AF 1.2 Cal Liquid 1,000 ML 60 ML GT (17:41)
[2018-06-10 19:41] LABS: Bedside Glucose 162 mg/dL (70-110)
[2018-06-10] MEDS: fentaNYL drip 100 ML 15 MCG IV (21:31)
[2018-06-10 23:05] LABS: Bedside Glucose 159 mg/dL (70-110)
[2018-06-10] MEDS: Ondansetron 4 MG/2 ML Vial IV (23:13)
[2018-06-11] VITALS (38 sets, daily range): BP systolic 105–152; BP diastolic 63–101; PULSE 64–86; RESP 12–21; TEMP 36.4–37.4; O2SAT 94–100
[2018-06-11 06:22] LABS: Absolute Lymphocyte Count 1.52 X10^3/ul (0.83-4.51); Absolute Neutrophil Count 6.4 X10^3/uL (2.0-7.7); Basophil# 0.13 X10^3/uL; Basophil% 1.4 % (0-1); Eosinophil# 0.34 X10^3/uL; Eosinophils% 3.5 % (0-5); Hematocrit 34.2 % (37-47); Hemoglobin 10.6 g/dl (12.0-15.0); Lymphocyte # 1.52 X10^3/ul (4.0); Lymphocyte % 15.8 % (19-41); Mean Corpuscular Hgb 25.6 pg (27.0-32.0); Mean Corpuscular Volume 82.6 fL (81-99); Mean Platelet Vol. 9.3 fl (6.2-12.0); Monocyte# 1.08 X10^3/uL; Monocyte% 11.3 % (0-10); Neutrophil # 6.42 X10^3/uL (2.7-7.7); Neutrophil % 66.9 % (47-70); Platelet Count 279 K/mm3 (150-450); RBC Distribution Width CV 14.7 % (11.6-14.6); RBC Distribution Width SD 43.7 fl (35.1-43.9); Red Blood Count 4.14 M/mm3 (4.2-5.4); White Blood Count 9.6 K/mm3 (4.4-11.0)
[2018-06-11 06:27] LABS: POSITIVE COUNT NO; POSITIVE DIFFERENTIAL NO; POSITIVE MORPHOLOGY NO
[2018-06-11 06:39] LABS: Anion Gap 16 (5-15); BUN 93 mg/dL (7-18); BUN/Creat Ratio 22.6 RATIO (10-20); Chloride 100 mmol/L (98-107); Creatinine, Serum 4.12 mg/dL (0.55-1.02); EST Glomerular Filtration Rate 12 mL/min (>60); Est Glom Filt Rate - Afr Amer 14 mL/min (>60); Glucose 190 mg/dL (74-106); Potassium 3.9 mmol/L (3.5-5.1); Sodium Level 140 mmol/L (136-145)
[2018-06-11 06:45] LABS: Bedside Glucose 160 mg/dL (70-110)
[2018-06-11] MEDS: Ipratropium/Albuterol Sulfate 3 ML AMPUL.NEB INHALATION ×4 (06:51→18:50)
--- NOTE | 2018-06-11 06:58 | PN_ITS ---
Subjective: The patient was seen and examined at the bedside this morning. Events from the last 24 hours have been reviewed. The patient is currently afebrile, hemodynamically stable and maintaining appropriate oxygen saturations with an FiO2 requirement of 30%. The patient is currently on the schedule to undergo tracheostomy at some point today. Her tube feeds are currently on hold. The patient is currently documented to be overall net +7 L for the admission. Objective: The patient's most recent lab work, culture data and imaging studies have all been personally reviewed. Infectious workup was noted to be negative with the exception of a urine culture which was positive for Klebsiella pneumonia. Surface echocardiogram dated May 25 revealed evidence of stage I diastolic dysfunction with an ejection fraction of 55%. General: Alert, Cooperative, - - Resting comfortably on spontaneous mode mechanical ventilation currently. HEENT: Atraumatic, PERRLA, Normocephalic Oral: No Gingival or Mucosal Lesions/ Ulcerations, - - Endotracheal tube remains in place. Neck: Supple, No Nodes, Trachea Midline Lungs: No rhonchi, No wheeze, No rales, Diminished Cardiovascular: Regular rate, Regular Rhythm, Normal S1, Normal S2, No murmurs Abdomen: Bowel Sounds Present, Soft, Non Tender, Obese, - - PEG tube site is C/D/I Extremities: No clubbing, No cyanosis Skin: No breakdown Musculoskeletal: No Tenderness to Palpation of Joints or Extremities Lymphatic: No Cervical, Supraclavicular, or Inguinal Adenopathy Neurological: Neuro grossly intact Vital Signs Temp Pulse Resp BP Pulse Ox 36.7 C 69 16 118/75 97 06/11/18 04:00 06/11/18 06:03 06/11/18 06:03 06/11/18 06:00 06/11/18 06:03 Oxygen Flow Rate (L/min) 50 Oxygen Delivery Method Mechanical Ventilator Weight: 291 lb 7.218 oz Body Mass Index (BMI) 49.7 Finger Stick Blood Glucose 150 Intake and Output for Last 24 Hours 06/09/18 06/10/18 06/11/18 23:59 23:59 23:59 Intake Total 1436.3 / 1436.3 2165.2 / 2165.2 859.9 / 859.9 Output Total 400 / 400 780 / 780 550 / 550 Balance 1036.3 / 1036.3 1385.2 / 1385.2 309.9 / 309.9 Labs (Last 48 Hours) 06/09/18 06/09/18 06/09/18 12:43 17:55 22:16 WBC RBC Hgb Hct MCV MCH MCHC RDW RDW Differential Plt Count MPV Immature Gran % (Auto) Neut % (Auto) Lymph % (Auto) [place] % (Auto) Eos % (Auto) Baso % (Auto) Absolute Neuts (auto) Absolute Lymphs (auto) Total Counted PT INR APTT Sodium Potassium Chloride Carbon Dioxide Anion Gap BUN Creatinine Estim Creat Clear Calc Est GFR (MDRD) Af Amer Est GFR (MDRD) Non-Af BUN/Creatinine Ratio Glucose Calcium POC Glucose 186 H 151 H 171 H 06/10/18 06/10/18 06/10/18 00:50 04:20 04:20 WBC 10.8 RBC 4.14 L Hgb 10.6 L Hct 34.0 L MCV 82.1 MCH 25.6 L MCHC 31.2 L RDW 14.5 RDW Differential 43.0 Plt Count 260 MPV 9.1 Immature Gran % (Auto) 1.000 H Neut % (Auto) 64.1 Lymph % (Auto) 19.0 [place] % (Auto) 12.4 H Eos % (Auto) 2.4 Baso % (Auto) 1.1 H Absolute Neuts (auto) 7.0 Absolute Lymphs (auto) 2.06 Total Counted Not Reportable PT INR APTT Sodium 139 Potassium 4.2 Chloride 98 Carbon Dioxide 26.0 Anion Gap 15 BUN 75 H Creatinine 4.02 H Estim Creat Clear Calc 14.45 Est GFR (MDRD) Af Amer 15 L Est GFR (MDRD) Non-Af 12 L BUN/Creatinine Ratio 18.7 Glucose 189 H Calcium 8.9 POC Glucose 190 H 06/10/18 06/10/18 06/10/18 05:20 11:35 17:36 WBC RBC Hgb Hct MCV MCH MCHC RDW RDW Differential Plt Count MPV Immature Gran % (Auto) Neut % (Auto) Lymph % (Auto) [place] % (Auto) Eos % (Auto) Baso % (Auto) Absolute Neuts (auto) Absolute Lymphs (auto) Total Counted PT INR APTT Sodium Potassium Chloride Carbon Dioxide Anion Gap BUN Creatinine Estim Creat Clear Calc Est GFR (MDRD) Af Amer Est GFR (MDRD) Non-Af BUN/Creatinine Ratio Glucose Calcium POC Glucose 170 H 211 H 162 H 06/10/18 06/11/18 06/11/18 23:00 06:00 06:00 WBC 9.6 RBC 4.14 L Hgb 10.6 L Hct 34.2 L MCV 82.6 MCH 25.6 L MCHC 31.0 L RDW 14.7 H RDW Differential 43.7 Plt Count 279 MPV 9.3 Immature Gran % (Auto) 1.100 H Neut % (Auto) 66.9 Lymph % (Auto) 15.8 L [place] % (Auto) 11.3 H Eos % (Auto) 3.5 Baso % (Auto) 1.4 H Absolute Neuts (auto) 6.4 Absolute Lymphs (auto) 1.52 Total Counted Not Reportable PT INR APTT Sodium 140 Potassium 3.9 Chloride 100 Carbon Dioxide 24.0 Anion Gap 16 H BUN 93 H Creatinine 4.12 H Estim Creat Clear Calc 14.10 Est GFR (MDRD) Af Amer 14 L Est GFR (MDRD) Non-Af 12 L BUN/Creatinine Ratio 22.6 H Glucose 190 H Calcium 9.0 POC Glucose 159 H 06/11/18 06/11/18 06:29 06:40 WBC RBC Hgb Hct MCV MCH MCHC RDW RDW Differential Plt Count MPV Immature Gran % (Auto) Neut % (Auto) Lymph % (Auto) [place] % (Auto) Eos % (Auto) Baso % (Auto) Absolute Neuts (auto) Absolute Lymphs (auto) Total Counted PT Pending INR Pending APTT Pending Sodium Potassium Chloride Carbon Dioxide Anion Gap BUN Creatinine Estim Creat Clear Calc Est GFR (MDRD) Af Amer Est GFR (MDRD) Non-Af BUN/Creatinine Ratio Glucose Calcium POC Glucose 160 H Clinical Impression(s) from Imaging Studies Chest X-Ray 05/23/18 15:15 IMPRESSION: Findings suggestive CHF with superimposed atelectasis and/or infiltrate in the right midlung. Electronically Signed: Royer Rowe MD at 15:56 EST , Service support , Chest X-Ray 05/24/18 10:30 IMPRESSION: Findings consistent with CHF. This appears worsening with areas of consolidation at the left lung base. Electronically Signed: Michael Braxton, at 17:08 EST Tel [phone], Service support , KUB X-Ray 05/24/18 14:46 IMPRESSION: The tip of the orogastric tube is in the body of the stomach. Electronically Signed: Royer Rowe MD at 15:43 EST , Service support , Chest X-Ray 05/24/18 15:10 IMPRESSION: The tip of the endotracheal tube is at 6.3 cm proximal to the ehsan. Electronically Signed: Royer Rowe MD at 15:44 EST , Service support , Chest X-Ray 05/25/18 05:11 IMPRESSION: The tip of the endotracheal tube is at 2.4 sinus proximal to the ehsan. The remainder the examination is unchanged. Electronically Signed: Royer Rowe MD at 8:15 EST , Service support , Chest CT 05/25/18 09:38 IMPRESSION: Infiltrates in both lungs worse in the right upper lobe and both lower lobes. Electronically Signed: Royer Rowe MD at 11:32 EST , Service support , Chest X-Ray 05/26/18 10:28 IMPRESSION: Stable interval exam. Placement of right subclavian central venous catheter without evidence of pneumothorax Electronically Signed: Rocco Zepeda DO at 11:52 EST Tel , Service support , Chest X-Ray 05/28/18 05:55 IMPRESSION: Stable findings. Persistent bilateral pulmonary infiltrates, larger on the right. at 0514 Reported and signed by: West Saini MD Electronically Signed: West Saini, at 5:13 EST Tel , Service support , Chest X-Ray 05/28/18 15:06 IMPRESSION: All lines are in good position. Progressive bilateral infiltrations. Electronically Signed: Royer Rowe MD at 16:01 EST , Service support , Chest X-Ray 05/30/18 08:00 IMPRESSION: Stable examination. Electronically Signed: Royer Rowe MD at 13:52 EST , Service support , Chest X-Ray 06/04/18 08:44 IMPRESSION: All the support tubes are unchanged. Prior study, there has been improved aeration of both lungs as described. Electronically Signed: Royer Rowe MD at 13:50 EST , Service support , Chest X-Ray 06/04/18 17:15 Chest X-Ray 06/07/18 14:45 IMPRESSION: Stable examination. Electronically Signed: Royer Rowe at 15:36 EST , Service support , Medical Necessity - Tobacco Use Smoking Status: Never smoker Tobacco Use: Non-smoker Assessment/Plan All Active Problems Chest pain (Acute) PNA (pneumonia) (Acute) Acute kidney injury (Acute) RECOMMENDATIONS: 1. Tentative plans for tracheostomy placement this morning. 2. Obtain peripheral IV access and remove triple-lumen central venous catheter, if possible. 3. Remove Tovar catheter. 4. Transition from continuous fentanyl to PRN dosing. 5. Continue tube feeds. 6. Physical therapy to work with patient. 7. Ongoing hemodialysis per nephrology recommendations. 8. Continue appropriate ICU prophylaxis IMPRESSIONS: 1. Acute combined respiratory failure secondary to severe community-acquired pneumonia The patient has been on treatment for multifocal pneumonia, and although improving, continues to have a significant ventilator requirement. At this time, the patient has completed her antibiotic treatment course. We will continue to wean her FiO2 as tolerated. Given the patient's inability to be weaned from mechanical ventilation, she has already undergone percutaneous PEG tube placement and is awaiting tracheostomy placement, which should be completed this morning. Volume optimization will be continued by hemodialysis per nephrology recommendations. 2. Acute kidney injury Likely secondary to ATN, as the patient was initially diuresed on admission to the hospital and also developed a component of hypotension on arrival to the ICU. Nephrology is currently following. The patient has been responding to hemodialysis support. The patient's temporary hemodialysis catheter was removed and a tunneled catheter was subsequently placed on June 04. Recommend continuing dialysis and volume optimization per nephrology recommendations. 3. Indeterminate troponin/acute on chronic diastolic heart failure Echocardiogram revealed no wall motion abnormalities. Nephrology is following to assist with volume management. 4. Morbid obesity/diabetes mellitus/anxiety/depression/PTSD Complicates care, management, recovery and prognosis. Continue Accu-Cheks and sliding scale insulin coverage. Tube feeds will be continued. This note was generated with [employer] dictation software. It may contain incorrect words, spelling, and punctuation that were not noted in checking the note before signing. Code Visit Inpatient E&M: 77326 [facility] L3
[2018-06-11 07:15] LABS: International Normalized Ratio 1.1; Prothrombin Time (Protime)PT. 14.2 SECONDS (11.7-14.9)
--- NOTE | 2018-06-11 07:26 | PN_ITS ---
Patient Problems: Active and Suspected Problems Chest pain (Acute) PNA (pneumonia) (Acute) Acute kidney injury (Acute) Subjective: Patient was seen and examined. Status post tracheostomy. Back to the ICU. Nonverbal at the time of being seen. But she looks alert but confused. No other acute events overnight per nursing staff. Vitals/I&O's: Vital Signs Temp Pulse Resp BP Pulse Ox 98.0 F 69 16 118/75 97 06/11/18 04:00 06/11/18 06:03 06/11/18 06:03 06/11/18 06:00 06/11/18 06:03 Oxygen Flow Rate (L/min) 50 Oxygen Delivery Method Mechanical Ventilator Weight: 132.2 kg Body Mass Index (BMI) 49.7 Finger Stick Blood Glucose 150 Intake and Output for Last 24 Hours 06/09/18 06/10/18 06/11/18 23:59 23:59 23:59 Intake Total 1436.3 / 1436.3 2165.2 / 2165.2 859.9 / 859.9 Output Total 400 / 400 780 / 780 550 / 550 Balance 1036.3 / 1036.3 1385.2 / 1385.2 309.9 / 309.9 General: Alert, Cooperative, No apparent distress, - - obese, appears comfortable HEENT: Atraumatic, PERRLA, EOMI, Normocephalic, - - s/p tracheostomy Oral: Dry Mucosa Neck: Supple, - - Right sided tunneled dialysis catheter, Left IJ central line Lungs: Normal air movement Cardiovascular: Regular rate, Regular Rhythm, Normal S1, Normal S2, No murmurs Abdomen: Bowel Sounds Present, Soft, Non Tender, Non-Distended, No Hepato- splenomegaly Extremities: Edema - Trace Skin: No rashes, No breakdown Musculoskeletal: No Tenderness to Palpation of Joints or Extremities Lymphatic: No Cervical, Supraclavicular, or Inguinal Adenopathy Neurological: Cranial nerves II-XII grossly intact Psych/Mental Status: Normal Affect, Appropriate Laboratory Results 06/10/18 11:35: POC Glucose 211 H 06/10/18 17:36: POC Glucose 162 H 06/10/18 23:00: POC Glucose 159 H 06/11/18 06:00: WBC 9.6, RBC 4.14 L, Hgb 10.6 L, Hct 34.2 L, MCV 82.6, MCH 25.6 L, MCHC 31.0 L, RDW 14.7 H, RDW Differential 43.7, Plt Count 279, MPV 9.3, Immature Gran % (Auto) 1.100 H, Neut % (Auto) 66.9, Lymph % (Auto) 15.8 L, [place] % (Auto) 11.3 H, Eos % (Auto) 3.5, Baso % (Auto) 1.4 H, Absolute Neuts (auto) 6.4, Absolute Lymphs (auto) 1.52, Total Counted Not Reportable 06/11/18 06:00: Sodium 140, Potassium 3.9, Chloride 100, Carbon Dioxide 24.0, Anion Gap 16 H, BUN 93 H, Creatinine 4.12 H, Estim Creat Clear Calc 14.10, Est GFR (MDRD) Af Amer 14 L, Est GFR (MDRD) Non-Af 12 L, BUN/Creatinine Ratio 22.6 H , Glucose 190 H, Calcium 9.0 06/11/18 06:29: POC Glucose 160 H 06/11/18 06:40: PT 14.2, INR 1.1, APTT 25.0 Current Medications Acetaminophen (Tylenol Liquid) 650 mg GT Q4H PRN PRN PRN Reason: T > 100.5 F Last Admin: 05/25/18 01:27 Dose: 650 mg Albuterol Sulfate (Ventolin Aerosols) 2.5 mg INHALATION Q2H PRN PRN PRN Reason: SOB &/OR WHEEZING Last Admin: 06/04/18 18:40 Dose: 2.5 mg Albuterol/Ipratropium (Duoneb) 3 ml INHALATION Q4HWA.RT RUBI Last Admin: 06/11/18 06:51 Dose: 3 ml Calamine/Phenol (Calmoseptine Ointment) 1 applic TOPICAL BID RUBI; Protocol Last Admin: 06/10/18 21:45 Dose: 1 applicatio Chlorhexidine Gluconate () 1 each TOPICAL DAILY RUBI Last Admin: 06/10/18 04:41 Dose: 1 each Chlorhexidine Gluconate () 15 ml PO BID RUBI Last Admin: 06/10/18 21:44 Dose: 15 ml Dextrose (D50w Syringe) 0 gm IV X1 PRN; Protocol PRN Reason: Hypoglycemia Famotidine (Pepcid) 20 mg GT DAILY [facility] Last Admin: 06/10/18 11:00 Dose: 20 mg Glucagon () 1 mg IM .X1 PRN PRN Reason: Hypoglycemia Heparin Sodium (Porcine) (Heparin Na) 5,000 unit SC Q8 [facility] Last Admin: 06/11/18 06:43 Dose: Not Given Sodium Chloride () 250 mls @ 15 mls/hr IV .[id number] PRN PRN Reason: SALINE FLUSH Last Admin: 06/07/18 10:09 Dose: 15 mls/hr Fentanyl () 100 mls @ 15 mls/hr IV .Q20H RUBI Last Admin: 06/10/18 21:31 Dose: 15 mls/hr Enteral Nutritional Formula (Vital Af 1.2 Glenn Liquid) 1,000 mls @ 60 mls/hr GT .[id number] [facility] Last Admin: 06/11/18 03:30 Dose: Not Given Insulin Glargine (Lantus (Bkc)) 60 units SC BID [facility] Last Admin: 06/10/18 23:01 Dose: 60 u Insulin Human Lispro (Humalog Kwikpen (Bkc)) 0 unit SC Q6 [facility]; Protocol Last Admin: 06/11/18 06:43 Dose: Not Given Nystatin (Mycostatin Powder) 1 applic TOPICAL TID [facility]; Protocol Last Admin: 06/11/18 06:42 Dose: Not Given Ondansetron HCl (Zofran) 4 mg IV Q4H PRN PRN PRN Reason: NAUSEA/VOMITING Last Admin: 06/10/18 23:13 Dose: 4 mg Polyethylene Glycol (Miralax) 17 gm GT DAILY [facility] Last Admin: 06/10/18 11:03 Dose: 17 gm Risperidone (Risperdal) 2 mg GT BID [facility] Last Admin: 06/10/18 21:40 Dose: 2 mg Risperidone (Risperdal) 0.5 mg GT BID [facility] Last Admin: 06/10/18 21:41 Dose: 0.5 mg Sodium Chloride () 5 - 15 ml IV UD PRN PRN Reason: SALINE FLUSH Last Admin: 06/10/18 05:22 Dose: 10 ml Sodium Chloride () 10 ml IV UD PRN PRN Reason: Dialysis Catheter Flush Medical Necessity - Tobacco Use Smoking Status: Never smoker Tobacco Use: Non-smoker Assessment/Plan All Active Problems Chest pain (Acute) PNA (pneumonia) (Acute) Acute kidney injury (Acute) 57-year-old female admitted for acute hypoxic/hypercapnic respiratory failure on 05/23/18. Patient was managed initially on BiPAP and later intubate and transferred to ICU. She has continued to be managed as acute I hypercapnic respiratory failure secondary to severe multifocal community-acquired pneumonia. Status post tracheostomy today. 1. Acute hypoxic/hypercapnic respiratory failure injury to severe community- acquired pneumonia, status post tracheostomy today We will continue to follow up with the patient's progress, continue mechanical v entilator 2. Community-acquired pneumonia, multifocal, completed antibiotic treatment, continue to follow 3. LUCY secondary to ATN, on hemodialysis, remains oliguric, althoiugh urine output is slightly elevated, nephrology following, 4. Acute on chronic diastolic heart failure, EF 55%, stage I diastolic dysfunction, fluid removal during dialysis, continue to monitor 5. Type II DM, blood sugars are fairly controlled, on insulin, continue to monitor with Accu-Cheks 6. Anxiety/depression/PTSD/morbid obesity - all complicating care 7. DVT PPx-on heparin subcu - will hold today post-procedure Code Visit Inpatient E&M: [id number] [facility] H[facility] L3
--- NOTE | 2018-06-11 08:30 | PCM.OPRPT ---
Problem List (1) Acute respiratory failure with hypoxia Status: Chronic Report of Operation Date of Procedure: 06/11/18 Pre-Operative Diagnosis: respiratory failure Post-Operative Diagnosis: respiratory failure Surgery/Procedure Performed:: tracheostomy with chantell flap Type of Anesthesia:: General Description of Procedure: on the day of the procedure, after appropriate informed consent was obtained, the patient was brought to the operating room from the ICU and placed in supine position on the operating table. she was already intubated, and placed under general anesthesia. the neck was prepped and draped in sterile fashion and injected with 1% lidocaine/epinephrine. a #15 blade was used to make a 2cm transverse incision in the low neck. a lipectomy was performed with the bovie and an allis. the superficial then deep strap muscles were divided along their midline raphe and retracted laterally. the airway was readily encountered and the pretracheal fascia was entered with the bovie. a right angle was used to dissect deep to the pretracheal fascia posterior to the thyroid. the gland was elevated with a vein hook. the gland was then divided with the bovie and hemostasis was achieved. the airway was entered with a 15 blade between tracheal rings 1 and 2. a chantell flap was created with curved bedolla scizzors and sutured to the overlying skin with a 2-0 ethibond. the endotracheal tube was retracted by anesthesia and a #6DCT was placed. the cuff was inflated (this was tested prior to its insertion). there was return of end-tidal CO2. the trach was sutured in 4 corners and secured with an umbilical tie. she was brought out of anesthesia and transferred to the ICU in stable condition. dr antonio thomas was present and scrubbed for the entire procedure and was critical in every step.
--- NOTE | 2018-06-11 08:57 | RAD_ITS ---
STUDY: X-RAY CHEST REASON FOR EXAM: Female, 57 years old. Tracheostomy placement. TECHNIQUE: Single AP portable view of the chest. COMPARISON: Comparison is made with prior study dated June 07, 2018. FINDINGS: A tracheostomy has been placed. The tip is at 5.1 cm proximal to ehsan. A right-sided double-lumen catheter is seen with the tip at the junction of the superior vena cava and right atrium. Stable appearance of both lungs. RAD/Chest 1 View (Portable) IMPRESSION: The tip of the tracheostomy is at 5.1 cm proximal to the ehsan. The appearance of both lungs is unchanged. Electronically Signed: Royer Rowe, at 14:04 EST , Service support ,
[2018-06-11] MEDS: Lubricating Jelly 60 GM Tube 30 GM TOPICAL (09:46)
[2018-06-11] MEDS: Menthol/Lanolin/Calamine/Znox 113 GM Tube 1 APPLIC TOPICAL ×2 (09:46→21:44)
[2018-06-11] MEDS: Chlorhexidine 15 ML PO ×2 (09:46→21:58)
[2018-06-11] MEDS: Famotidine 20 MG Tablet GT (09:47)
[2018-06-11] MEDS: RisperiDONE 2 MG Tablet GT ×2 (09:47→21:43)
[2018-06-11] MEDS: RisperiDONE 0.5 MG Tablet GT ×2 (09:47→21:42)
[2018-06-11] MEDS: fentaNYL 100 MCG/2 ML Ampul 50 MCG IV ×4 (10:29→22:14)
--- NOTE | 2018-06-11 11:05 | CASEMGMT ---
LINDSAY CM Note: [facility] to [facility] information for pt. Approved to go to [facility] tomorrow, but will need guardianship approval. Number for guardian not in chart. Call to Na FELDMAN misbah who was able to get number and have registration list on Face Sheet.. -DC PLAN: dc to [facility] in [place] on discharge. Olimpia SPENCER RN AC
[2018-06-11] MEDS: CHLORHEXIDINE GLUC 2% CLOTH 1 EACH TOWELETTE TOPICAL (13:01)
[2018-06-11] MEDS: Insulin Lispro 100 UNIT/ML INSULN.PEN SC (13:01)
[2018-06-11 13:15] LABS: Bedside Glucose 181 mg/dL (70-110)
--- NOTE | 2018-06-11 14:10 | PCM.PN.REN ---
Patient Problems: Active and Suspected Problems Chest pain (Acute) PNA (pneumonia) (Acute) Acute kidney injury (Acute) Subjective: s/p trach this am - Physical Exam HEENT: Atraumatic, PERRLA, EOMI, Normocephalic Neck: Supple, No JVD, Negative Carotid Bruits Lungs: Clear to auscultation, Normal air movement Cardiovascular: Regular rate, No murmurs Abdomen: Bowel Sounds Present, Soft, Non Tender Extremities: No edema, Capillary Refill Less than 3 Seconds Skin: No rashes, No breakdown Musculoskeletal: No Tenderness to Palpation of Joints or Extremities Vital Signs Temp Pulse Resp BP Pulse Ox 98.7 F 84 15 135/82 H 97 06/11/18 12:00 06/11/18 13:00 06/11/18 13:00 06/11/18 13:00 06/11/18 13:00 Oxygen Flow Rate (L/min) 50 Oxygen Delivery Method Mechanical Ventilator Weight: 132.2 kg Body Mass Index (BMI) 49.7 Finger Stick Blood Glucose 150 Intake and Output for Last 24 Hours 06/09/18 06/10/18 06/11/18 23:59 23:59 23:59 Intake Total 1436.3 / 1436.3 2165.2 / 2165.2 1199.9 / 1199.9 Output Total 400 / 400 780 / 780 875 / 875 Balance 1036.3 / 1036.3 1385.2 / 1385.2 324.9 / 324.9 Laboratory Tests Past 24 Hrs 06/11/18 06/11/18 06/11/18 06:00 06:00 06:40 WBC 9.6 RBC 4.14 L Hgb 10.6 L Hct 34.2 L MCV 82.6 MCH 25.6 L MCHC 31.0 L RDW 14.7 H RDW Differential 43.7 Plt Count 279 MPV 9.3 Immature Gran % (Auto) 1.100 H Neut % (Auto) 66.9 Lymph % (Auto) 15.8 L [place] % (Auto) 11.3 H Eos % (Auto) 3.5 Baso % (Auto) 1.4 H Absolute Neuts (auto) 6.4 Absolute Lymphs (auto) 1.52 Total Counted Not Reportable PT 14.2 INR 1.1 APTT 25.0 Sodium 140 Potassium 3.9 Chloride 100 Carbon Dioxide 24.0 Anion Gap 16 H BUN 93 H Creatinine 4.12 H Estim Creat Clear Calc 14.10 Est GFR (MDRD) Af Amer 14 L Est GFR (MDRD) Non-Af 12 L BUN/Creatinine Ratio 22.6 H Glucose 190 H Calcium 9.0 POC Glucose 06/11/18 06/11/18 06/10/18 12:58 06:29 23:00 POC Glucose 181 H 160 H 159 H 06/10/18 17:36 POC Glucose 162 H Medical Necessity - Tobacco Use Smoking Status: Never smoker Tobacco Use: Non-smoker Assessment/Plan All Active Problems Chest pain (Acute) PNA (pneumonia) (Acute) Acute kidney injury (Acute) 1-Acute kidney injury. Normal creatinine 2014. Patient presented with creatinine 1.07 mg/dL. UA showed 100 protein and 100 blood but no RBCs or white cell count. 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 C3/C4 are within normal limits. Hepatitis panel is negative No recovery of kidney function. Remains anuric Patient is currently hemodialysis dependent for metabolic and volume support. Dialysis started on May 28. 2-Acute respiratory failure from bilateral pneumonia. Ventilator support as per the green house manager. 6-khfbucuvn-jgqwyklo pneumonia. On levaquin which is appropriately dosed for HD patient. Plan urine output is better, Cr slightly higher HD today d/w SW. she may be discharged to [facility] in [place] tomorrow. will sign out patient to local nephrology group possible she might be able to come off dialysis soon
--- NOTE | 2018-06-11 14:13 | PN.RENAL_ITS ---
Patient Problems: Active and Suspected Problems Chest pain (Acute) PNA (pneumonia) (Acute) Acute kidney injury (Acute) Subjective: s/p trach this am - Physical Exam HEENT: Atraumatic, PERRLA, EOMI, Normocephalic Neck: Supple, No JVD, Negative Carotid Bruits Lungs: Clear to auscultation, Normal air movement Cardiovascular: Regular rate, No murmurs Abdomen: Bowel Sounds Present, Soft, Non Tender Extremities: No edema, Capillary Refill Less than 3 Seconds Skin: No rashes, No breakdown Musculoskeletal: No Tenderness to Palpation of Joints or Extremities Vital Signs Temp Pulse Resp BP Pulse Ox 98.7 F 84 15 135/82 H 97 06/11/18 12:00 06/11/18 13:00 06/11/18 13:00 06/11/18 13:00 06/11/18 13:00 Oxygen Flow Rate (L/min) 50 Oxygen Delivery Method Mechanical Ventilator Weight: 132.2 kg Body Mass Index (BMI) 49.7 Finger Stick Blood Glucose 150 Intake and Output for Last 24 Hours 06/09/18 06/10/18 06/11/18 23:59 23:59 23:59 Intake Total 1436.3 / 1436.3 2165.2 / 2165.2 1199.9 / 1199.9 Output Total 400 / 400 780 / 780 875 / 875 Balance 1036.3 / 1036.3 1385.2 / 1385.2 324.9 / 324.9 Laboratory Tests Past 24 Hrs 06/11/18 06/11/18 06/11/18 06:00 06:00 06:40 WBC 9.6 RBC 4.14 L Hgb 10.6 L Hct 34.2 L MCV 82.6 MCH 25.6 L MCHC 31.0 L RDW 14.7 H RDW Differential 43.7 Plt Count 279 MPV 9.3 Immature Gran % (Auto) 1.100 H Neut % (Auto) 66.9 Lymph % (Auto) 15.8 L [place] % (Auto) 11.3 H Eos % (Auto) 3.5 Baso % (Auto) 1.4 H Absolute Neuts (auto) 6.4 Absolute Lymphs (auto) 1.52 Total Counted Not Reportable PT 14.2 INR 1.1 APTT 25.0 Sodium 140 Potassium 3.9 Chloride 100 Carbon Dioxide 24.0 Anion Gap 16 H BUN 93 H Creatinine 4.12 H Estim Creat Clear Calc 14.10 Est GFR (MDRD) Af Amer 14 L Est GFR (MDRD) Non-Af 12 L BUN/Creatinine Ratio 22.6 H Glucose 190 H Calcium 9.0 POC Glucose 06/11/18 06/11/18 06/10/18 12:58 06:29 23:00 POC Glucose 181 H 160 H 159 H 06/10/18 17:36 POC Glucose 162 H Medical Necessity - Tobacco Use Smoking Status: Never smoker Tobacco Use: Non-smoker Assessment/Plan All Active Problems Chest pain (Acute) PNA (pneumonia) (Acute) Acute kidney injury (Acute) 1-Acute kidney injury. Normal creatinine 2014. Patient presented with creatinine 1.07 mg/dL. UA showed 100 protein and 100 blood but no RBCs or white cell count. 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 C3/C4 are within normal limits. Hepa titis panel is negative No recovery of kidney function. Remains anuric Patient is currently hemodialysis dependent for metabolic and volume support. Dialysis started on May 28. 2-Acute respiratory failure from bilateral pneumonia. Ventilator support as per the firer portable boiler. 8-[id number]-mncoyzpz pneumonia. On levaquin which is appropriately dosed for HD patient. Plan urine output is better, Cr slightly higher HD today d/w SW. she may be discharged to [facility] in [place] tomorrow. will sign out patient to local nephrology group possible she might be able to come off dialysis soon
[2018-06-11] MEDS: Heparin 10,000 UNITS/10 ML Vial IV (16:48)
--- NOTE | 2018-06-11 17:08 | DIALYSIS ---
Hemodialysis completed as ordered. stable t/o. -1000ml. CVC closed with Heparin to each lumen fill volume only. Report to Lisy
--- NOTE | 2018-06-11 17:30 | NURSING ---
Dialysis nurse, Perla spoke with Dr. Mendez about placement of midline. Per MD, OK to place the midline at this time.
[2018-06-11] MEDS: Nystatin Powder 15gm Bottle 1 APPLIC TOPICAL ×2 (17:42→21:43)
[2018-06-11] MEDS: Vital AF 1.2 Cal Liquid 1,000 ML 60 ML GT (18:01)
[2018-06-11 18:20] LABS: Bedside Glucose 122 mg/dL (70-110)
[2018-06-11] MEDS: Acetaminophen 650 MG/20 ML UDC GT (21:44)
[2018-06-11 22:25] LABS: Bedside Glucose 123 mg/dL (70-110)
[2018-06-12] VITALS (24 sets, daily range): BP systolic 115–145; BP diastolic 64–87; PULSE 67–86; RESP 13–20; TEMP 36.7–37.3; O2SAT 94–99
[2018-06-12 02:01] LABS: Bedside Glucose 123 mg/dL (70-110)
[2018-06-12] MEDS: fentaNYL 100 MCG/2 ML Ampul 50 MCG IV ×3 (03:32→12:53)
[2018-06-12 04:40] LABS: Anion Gap 10 (5-15); BUN 57 mg/dL (7-18); BUN/Creat Ratio 21.7 RATIO (10-20); Calcium,Total 8.6 mg/dL (8.5-10.1); Chloride 104 mmol/L (98-107); Creatinine, Serum 2.63 mg/dL (0.55-1.02); EST Glomerular Filtration Rate 20 mL/min (>60); Est Glom Filt Rate - Afr Amer 24 mL/min (>60); Estimated Creatinine Clearance 22.09 ml/min; Glucose 104 mg/dL (74-106); Potassium 3.7 mmol/L (3.5-5.1); Sodium Level 142 mmol/L (136-145)
[2018-06-12] MEDS: Nystatin Powder 15gm Bottle 1 APPLIC TOPICAL ×2 (06:29→12:52)
[2018-06-12] MEDS: Heparin Injection (Vial) 5,000 UNIT/ML VIAL 5000 UNIT SC ×2 (06:30→12:53)
[2018-06-12] MEDS: Ipratropium/Albuterol Sulfate 3 ML AMPUL.NEB INHALATION ×2 (06:46→11:24)
--- NOTE | 2018-06-12 07:19 | PCM.PN.INT ---
Subjective: The patient was seen and examined at the bedside this morning. Events from the last 24 hours have been reviewed. The patient is currently afebrile, hemodynamically stable and maintaining appropriate oxygen saturations with an FiO2 requirement of 30%. The patient remains overall net +7.4 L for the admission. The patient's central venous catheter was removed yesterday and a midline was placed. The patient did undergo successful hemodialysis yesterday. Objective: The patient's most recent lab work, culture data and imaging studies have all been personally reviewed. Infectious workup was noted to be negative with the exception of a urine culture which was positive for Klebsiella pneumonia. Surface echocardiogram dated May 25 revealed evidence of stage I diastolic dysfunction with an ejection fraction of 55%. General: Alert, No apparent distress, - - Tolerating spontaneous mode mechanical ventilation HEENT: Atraumatic, PERRLA, Normocephalic Oral: No Gingival or Mucosal Lesions/ Ulcerations Neck: Supple, No Nodes, Trachea Midline, - - Tracheostomy site is intact Lungs: No rhonchi, No wheeze, No rales, Diminished Cardiovascular: Regular rate, Regular Rhythm, Normal S1, Normal S2, No murmurs Abdomen: Bowel Sounds Present, Soft, Non Tender, Obese, - - PEG site is C/D/I Extremities: No clubbing, No cyanosis Skin: No breakdown Musculoskeletal: No Tenderness to Palpation of Joints or Extremities Lymphatic: No Cervical, Supraclavicular, or Inguinal Adenopathy Neurological: Neuro grossly intact Vital Signs Temp Pulse Resp BP Pulse Ox 36.7 C 71 15 115/69 98 06/12/18 04:00 06/12/18 06:00 06/12/18 06:00 06/12/18 06:00 06/12/18 06:00 Oxygen Flow Rate (L/min) 50 Oxygen Delivery Method Mechanical Ventilator Weight: 291 lb 7.218 oz Body Mass Index (BMI) 49.7 Finger Stick Blood Glucose 150 Intake and Output for Last 24 Hours 06/10/18 06/11/18 06/12/18 23:59 23:59 23:59 Intake Total 2165.2 / 2165.2 1744.9 / 1744.9 1110 / 1110 Output Total 780 / 780 2125 / 2125 75 / 75 Balance 1385.2 / 1385.2 -380.1 / -380.1 1035 / 1035 Labs (Last 48 Hours) 06/10/18 06/10/18 06/10/18 11:35 17:36 23:00 WBC RBC Hgb Hct MCV MCH MCHC RDW RDW Differential Plt Count MPV Immature Gran % (Auto) Neut % (Auto) Lymph % (Auto) [place] % (Auto) Eos % (Auto) Baso % (Auto) Absolute Neuts (auto) Absolute Lymphs (auto) Total Counted PT INR APTT Sodium Potassium Chloride Carbon Dioxide Anion Gap BUN Creatinine Estim Creat Clear Calc Est GFR (MDRD) Af Amer Est GFR (MDRD) Non-Af BUN/Creatinine Ratio Glucose Calcium POC Glucose 211 H 162 H 159 H 06/11/18 06/11/18 06/11/18 06:00 06:00 06:29 WBC 9.6 RBC 4.14 L Hgb 10.6 L Hct 34.2 L MCV 82.6 MCH 25.6 L MCHC 31.0 L RDW 14.7 H RDW Differential 43.7 Plt Count 279 MPV 9.3 Immature Gran % (Auto) 1.100 H Neut % (Auto) 66.9 Lymph % (Auto) 15.8 L [place] % (Auto) 11.3 H Eos % (Auto) 3.5 Baso % (Auto) 1.4 H Absolute Neuts (auto) 6.4 Absolute Lymphs (auto) 1.52 Total Counted Not Reportable PT INR APTT Sodium 140 Potassium 3.9 Chloride 100 Carbon Dioxide 24.0 Anion Gap 16 H BUN 93 H Creatinine 4.12 H Estim Creat Clear Calc 14.10 Est GFR (MDRD) Af Amer 14 L Est GFR (MDRD) Non-Af 12 L BUN/Creatinine Ratio 22.6 H Glucose 190 H Calcium 9.0 POC Glucose 160 H 06/11/18 06/11/18 06/11/18 06:40 12:58 17:41 WBC RBC Hgb Hct MCV MCH MCHC RDW RDW Differential Plt Count MPV Immature Gran % (Auto) Neut % (Auto) Lymph % (Auto) [place] % (Auto) Eos % (Auto) Baso % (Auto) Absolute Neuts (auto) Absolute Lymphs (auto) Total Counted PT 14.2 INR 1.1 APTT 25.0 Sodium Potassium Chloride Carbon Dioxide Anion Gap BUN Creatinine Estim Creat Clear Calc Est GFR (MDRD) Af Amer Est GFR (MDRD) Non-Af BUN/Creatinine Ratio Glucose Calcium POC Glucose 181 H 122 H 06/11/18 06/12/18 06/12/18 22:13 01:51 04:20 WBC RBC Hgb Hct MCV MCH MCHC RDW RDW Differential Plt Count MPV Immature Gran % (Auto) Neut % (Auto) Lymph % (Auto) [place] % (Auto) Eos % (Auto) Baso % (Auto) Absolute Neuts (auto) Absolute Lymphs (auto) Total Counted PT INR APTT Sodium 142 Potassium 3.7 Chloride 104 Carbon Dioxide 28.0 Anion Gap 10 BUN 57 H Creatinine 2.63 H Estim Creat Clear Calc 22.09 Est GFR (MDRD) Af Amer 24 L Est GFR (MDRD) Non-Af 20 L BUN/Creatinine Ratio 21.7 H Glucose 104 Calcium 8.6 POC Glucose 123 H 123 H Clinical Impression(s) from Imaging Studies Chest X-Ray 05/23/18 15:15 IMPRESSION: Findings suggestive CHF with superimposed atelectasis and/or infiltrate in the right midlung. Electronically Signed: Royer Rowe MD at 15:56 EST , Service support , Chest X-Ray 05/24/18 10:30 IMPRESSION: Findings consistent with CHF. This appears worsening with areas of consolidation at the left lung base. Electronically Signed: Michael Braxton DO at 17:08 EST Tel [phone], Service support , KUB X-Ray 05/24/18 14:46 IMPRESSION: The tip of the orogastric tube is in the body of the stomach. Electronically Signed: Royer Rowe MD at 15:43 EST , Service support , Chest X-Ray 05/24/18 15:10 IMPRESSION: The tip of the endotracheal tube is at 6.3 cm proximal to the ehsan. Electronically Signed: Royer Rowe MD at 15:44 EST , Service support , Chest X-Ray 05/25/18 05:11 IMPRESSION: The tip of the endotracheal tube is at 2.4 sinus proximal to the ehsan. The remainder the examination is unchanged. Electronically Signed: Royer Rowe MD at 8:15 EST , Service support , Chest CT 05/25/18 09:38 IMPRESSION: Infiltrates in both lungs worse in the right upper lobe and both lower lobes. Electronically Signed: Royer Rowe MD at 11:32 EST , Service support , Chest X-Ray 05/26/18 10:28 IMPRESSION: Stable interval exam. Placement of right subclavian central venous catheter without evidence of pneumothorax Electronically Signed: Rococ Zepeda DO at 11:52 EST Tel , Service support , Chest X-Ray 05/28/18 05:55 IMPRESSION: Stable findings. Persistent bilateral pulmonary infiltrates, larger on the right. at 0514 Reported and signed by: West Saini MD Electronically Signed: West Saini, at 5:13 EST Tel , Service support , Chest X-Ray 05/28/18 15:06 IMPRESSION: All lines are in good position. Progressive bilateral infiltrations. Electronically Signed: Royer Rowe MD at 16:01 EST , Service support , Chest X-Ray 05/30/18 08:00 IMPRESSION: Stable examination. Electronically Signed: Royer Rowe MD at 13:52 EST , Service support , Chest X-Ray 06/04/18 08:44 IMPRESSION: All the support tubes are unchanged. Prior study, there has been improved aeration of both lungs as described. Electronically Signed: Royer Rowe MD at 13:50 EST , Service support , Chest X-Ray 06/04/18 17:15 Chest X-Ray 06/07/18 14:45 IMPRESSION: Stable examination. Electronically Signed: Royer Rowe at 15:36 EST , Service support , Chest X-Ray 06/11/18 08:57 IMPRESSION: The tip of the tracheostomy is at 5.1 cm proximal to the ehsan. The appearance of both lungs is unchanged. Electronically Signed: Royer Rowe, at 14:04 EST , Service support , Medical Necessity - Tobacco Use Smoking Status: Never smoker Tobacco Use: Non-smoker Assessment/Plan All Active Problems Chest pain (Acute) PNA (pneumonia) (Acute) Acute kidney injury (Acute) RECOMMENDATIONS: 1. Continue tube feeds. 2. Physical therapy to work with patient. 3. Ongoing hemodialysis per nephrology recommendations. 4. Continue appropriate ICU prophylaxis IMPRESSIONS: 1. Acute combined respiratory failure secondary to severe community-acquired pneumonia The patient completed treatment for multifocal pneumonia and continues to improve clinically. At this time, the patient has completed her antibiotic treatment course. We will continue to wean her FiO2 as tolerated. Given the patient's inability to be weaned from mechanical ventilation, she has undergone percutaneous PEG tube placement and tracheostomy. Volume optimization will be continued by hemodialysis per nephrology recommendations. Given how profoundly weak the patient currently is, I anticipate a prolonged recovery period. LTACH disposition is currently pending. 2. Acute kidney injury Likely secondary to ATN, as the patient was initially diuresed on admission to the hospital and also developed a component of hypotension on arrival to the ICU. Nephrology is currently following. The patient has been responding to hemodialysis support. The patient's temporary hemodialysis catheter was removed and a tunneled catheter was subsequently placed on June 04. Recommend continuing dialysis and volume optimization per nephrology recommendations. 3. Indeterminate troponin/acute on chronic diastolic heart failure Echocardiogram revealed no wall motion abnormalities. Nephrology is following to assist with volume management. 4. Morbid obesity/diabetes mellitus/anxiety/depression/PTSD Complicates care, management, recovery and prognosis. Continue Accu-Cheks and sliding scale insulin coverage. Tube feeds will be continued. This note was generated with [employer] dictation software. It may contain incorrect words, spelling, and punctuation that were not noted in checking the note before signing. Code Visit Inpatient E&M: 31361 [facility] Hosp L3
[2018-06-12 07:46] LABS: Bedside Glucose 114 mg/dL (70-110)
--- NOTE | 2018-06-12 08:20 | PN_ITS ---
Patient Problems: Active and Suspected Problems Chest pain (Acute) PNA (pneumonia) (Acute) Acute kidney injury (Acute) Vitals/I&O's: Vital Signs Temp Pulse Resp BP Pulse Ox 98.1 F 76 19 H 127/78 H 96 06/12/18 04:00 06/12/18 07:05 06/12/18 07:00 06/12/18 07:00 06/12/18 07:00 Oxygen Flow Rate (L/min) 50 Oxygen Delivery Method Mechanical Ventilator Weight: 132.2 kg Body Mass Index (BMI) 49.7 Finger Stick Blood Glucose 150 Intake and Output for Last 24 Hours 06/10/18 06/11/18 06/12/18 23:59 23:59 23:59 Intake Total 2165.2 / 2165.2 1744.9 / 1744.9 1110 / 1110 Output Total 780 / 780 2125 / 2125 75 / 75 Balance 1385.2 / 1385.2 -380.1 / -380.1 1035 / 1035 Laboratory Results 06/11/18 12:58: POC Glucose 181 H 06/11/18 17:41: POC Glucose 122 H 06/11/18 22:13: POC Glucose 123 H 06/12/18 01:51: POC Glucose 123 H 06/12/18 04:20: Sodium 142, Potassium 3.7, Chloride 104, Carbon Dioxide 28.0, Anion Gap 10, BUN 57 H, Creatinine 2.63 H, Estim Creat Clear Calc 22.09, Est GFR (MDRD) Af Amer 24 L, Est GFR (MDRD) Non-Af 20 L, BUN/Creatinine Ratio 21.7 H, Glucose 104, Calcium 8.6 06/12/18 06:27: POC Glucose 114 H Current Medications Acetaminophen (Tylenol Liquid) 650 mg GT Q4H PRN PRN PRN Reason: T > 100.5 F Last Admin: 06/11/18 21:44 Dose: 650 mg Albuterol Sulfate (Ventolin Aerosols) 2.5 mg INHALATION Q2H PRN PRN PRN Reason: SOB &/OR WHEEZING Last Admin: 06/04/18 18:40 Dose: 2.5 mg Albuterol/Ipratropium (Duoneb) 3 ml INHALATION Q4HWA.RT RUBI Last Admin: 06/12/18 06:46 Dose: 3 ml Calamine/Phenol (Calmoseptine Ointment) 1 applic TOPICAL BID [facility]; Protocol Last Admin: 06/11/18 21:44 Dose: 1 applicatio Chlorhexidine Gluconate () 1 each TOPICAL DAILY [facility] Last Admin: 06/11/18 13:01 Dose: 1 each Chlorhexidine Gluconate () 15 ml PO BID [facility] Last Admin: 06/11/18 21:58 Dose: 15 ml Dextrose (D50w Syringe) 0 gm IV X1 PRN; Protocol PRN Reason: Hypoglycemia Famotidine (Pepcid) 20 mg GT DAILY [facility] Last Admin: 06/11/18 09:47 Dose: 20 mg Fentanyl Citrate (Sublimaze (100mcg Ampule)) 50 mcg IV Q4H PRN PRN PRN Reason: PAIN Last Admin: 06/12/18 03:32 Dose: 50 mcg Glucagon () 1 mg IM .X1 PRN PRN Reason: Hypoglycemia Heparin Sodium (Porcine) (Heparin Na) 5,000 unit SC Q8 [facility] Last Admin: 06/12/18 06:30 Dose: 5,000 unit Sodium Chloride () 250 mls @ 15 mls/hr IV .[id number] PRN PRN Reason: SALINE FLUSH Last Admin: 06/07/18 10:09 Dose: 15 mls/hr Enteral Nutritional Formula (Vital Af 1.2 Glenn Liquid) 1,000 mls @ 60 mls/hr GT .[id number] [facility] Last Admin: 06/11/18 18:01 Dose: 60 mls/hr Insulin Glargine (Lantus (Bkc)) 60 units SC BID [facility] Last Admin: 06/11/18 22:46 Dose: 60 u Insulin Human Lispro (Humalog Kwikpen (Bkc)) 0 unit SC Q6 [facility]; Protocol Last Admin: 06/12/18 06:29 Dose: Not Given Nystatin (Mycostatin Powder) 1 applic TOPICAL TID [facility]; Protocol Last Admin: 06/12/18 06:29 Dose: 1 applic Ondansetron HCl (Zofran) 4 mg IV Q4H PRN PRN PRN Reason: NAUSEA/VOMITING Last Admin: 06/10/18 23:13 Dose: 4 mg Polyethylene Glycol (Miralax) 17 gm GT DAILY [facility] Last Admin: 06/11/18 09:33 Dose: Not Given Risperidone (Risperdal) 2 mg GT BID [facility] Last Admin: 06/11/18 21:43 Dose: 2 mg Risperidone (Risperdal) 0.5 mg GT BID [facility] Last Admin: 06/11/18 21:42 Dose: 0.5 mg Sodium Chloride () 5 - 15 ml IV UD PRN PRN Reason: SALINE FLUSH Last Admin: 06/10/18 05:22 Dose: 10 ml Sodium Chloride () 10 ml IV UD PRN PRN Reason: Dialysis Catheter Flush Medical Necessity - Tobacco Use Smoking Status: Never smoker Tobacco Use: Non-smoker Assessment/Plan All Active Problems Chest pain (Acute) PNA (pneumonia) (Acute) Acute kidney injury (Acute)
[2018-06-12] MEDS: Menthol/Lanolin/Calamine/Znox 113 GM Tube 1 APPLIC TOPICAL (08:38)
[2018-06-12] MEDS: CHLORHEXIDINE GLUC 2% CLOTH 1 EACH TOWELETTE TOPICAL (08:38)
[2018-06-12] MEDS: Chlorhexidine 15 ML PO (08:38)
[2018-06-12] MEDS: Famotidine 20 MG Tablet GT (08:39)
[2018-06-12] MEDS: RisperiDONE 2 MG Tablet GT (08:40)
[2018-06-12] MEDS: RisperiDONE 0.5 MG Tablet GT (08:40)
--- NOTE | 2018-06-12 09:34 | CASEMGMT ---
LINDSAY CM Note: Plan is for dc today to Replaced By [facility]. Call to Adrienne who is getting authorization for transfer to [facility] from guardian, then pt will be able to transfer. Dr. Berger writing dc orders and med list. [facility] PH: FX: ([phone] Nurse Report: ([phone]/ DC PLAN: transfer to [facility] today once Adrienne @ [facility] has guardianship approval. Olimpia MURPHYN RN AC
--- NOTE | 2018-06-12 09:55 | PCM.TXEXTCAR ---
- Diet 05/24/18 13:05 NPO [Diet: Nothing Per Oral] Is pt able to select menu?: Yes On tube feeds - Vital tube feeds, going at 60mls/hr with 100mls every 6 hours tube flushes with free water - Routine Orders/Code Status O2 Liters per Minute: Mechanical ventilator- CPAP at 30%, at night, AC 12TV 450mls Fi02 30%PEEP5 O2 Frequency: Continuous Keep PO Greater than or Equal to (%): 94 Routine Lab Work: CBC - within 3 days, BMP - within 3 days - Wound(s) R AC Wound Type: IV infiltrate Dressing Change: Dry Sterile Dressing B/L buttocks, gluteal folds Wound Type: Excoriation Dressing Change: Calmoseptine right breast underside Wound Type: excoriated open Dressing Change: Nystatin powder Right neck Wound Type: Surgical Incision Dressing Change: open Right chest tunnelled puncture Wound Type: Surgical Incision Dressing Change: Dry Sterile Dressing L abd puncture Wound Type: Puncture Dressing Change: Dry Sterile Dressing - over left PEG tube site tracheostomy Wound Type: Surgical Incision Dressing Change: Dry Sterile Dressing - Therapies Weight Bearing: Weight bearing as tolerated Physical Therapy: Eval and Treat Occupational Therapy: Eval and Treat Speech Therapy: Eval and Treat - Allergies/Procedures Done in Hospital Allergies/Adverse Reactions: Allergies No Known Allergies Allergy (Verified 05/23/18 14:58) Procedures: 2-D Echocardiogram, Central line placement, PICC line placement, - - s/p tracheostomy on 06/11/18 - Type of Care/Length of Stay Estimated LOS: Convalescent Care Less Than 30 days Type of Care Needed: Skilled Rehab Potential: Good Prognosis: Fair - Additional Orders/Day of Discharge Additional Orders: Accuchecks q6 hrly. Dialysis per nephrology team who will discuss with local dialysis team; scheduled for 06/13/18, frequency to be determined Day of Discharge: 06/12/18 - Dietary and Speech Recommendations Dietitian Recommendations/Changes: Rec restart Vital AF 1.2, when medically able, via PEG at goal rate of 60mL/hour w/ 85 mL H2O flush every 6 hours to provide 1728 kcal, 108 gm protein & 1508 mL free water/day. - Follow Up Care Primary Care Physician: Richard Elizabeth MD [Primary Care Provider] - Please follow up with your Primary Care Physician in: within 1-2 weeks of discharge
--- NOTE | 2018-06-12 10:02 | PCM.DC.SUM ---
Discharge Date and Diagnosis Date of Admission: 05/23/18 Date of Discharge: 06/12/18 - Primary Discharge Diagnosis Active and Suspected Problems Acute hypoxic/hypercapnic respiratory failure Community-acquired pneumonia AK I secondary to ATN Acute on chronic diastolic heart failure Uncontrolled type II DM - Secondary Discharge Diagnosis Chronic Problems Acute respiratory failure with hypoxia (Chronic) Morbid obesity (Chronic) Histrionic personality disorder (Chronic) PTSD (post-traumatic stress disorder) (Chronic) Anxiety (Chronic) Diabetes (Chronic) Hospital Course and Treatment Imaging Results: Clinical Impression(s) from Imaging Studies Chest X-Ray 05/23/18 15:15 IMPRESSION: Findings suggestive CHF with superimposed atelectasis and/or infiltrate in the right midlung. Electronically Signed: Royer Rowe MD at 15:56 EST , Service support , Chest X-Ray 05/24/18 10:30 IMPRESSION: Findings consistent with CHF. This appears worsening with areas of consolidation at the left lung base. Electronically Signed: Michael Braxton DO at 17:08 EST Tel [phone], Service support , KUB X-Ray 05/24/18 14:46 IMPRESSION: The tip of the orogastric tube is in the body of the stomach. Electronically Signed: Royer Rowe MD at 15:43 EST , Service support , Chest X-Ray 05/24/18 15:10 IMPRESSION: The tip of the endotracheal tube is at 6.3 cm proximal to the ehsan. Electronically Signed: Royer Rowe MD at 15:44 EST , Service support , Chest X-Ray 05/25/18 05:11 IMPRESSION: The tip of the endotracheal tube is at 2.4 sinus proximal to the ehsan. The remainder the examination is unchanged. Electronically Signed: Royer Rowe MD at 8:15 EST , Service support , Chest CT 05/25/18 09:38 IMPRESSION: Infiltrates in both lungs worse in the right upper lobe and both lower lobes. Electronically Signed: Royer Rowe MD at 11:32 EST , Service support , Chest X-Ray 05/26/18 10:28 IMPRESSION: Stable interval exam. Placement of right subclavian central venous catheter without evidence of pneumothorax Electronically Signed: Rocco Zepeda DO at 11:52 EST Tel , Service support , Chest X-Ray 05/28/18 05:55 IMPRESSION: Stable findings. Persistent bilateral pulmonary infiltrates, larger on the right. at 0514 Reported and signed by: West Saini MD Electronically Signed: West Saini, at 5:13 EST Tel , Service support , Chest X-Ray 05/28/18 15:06 IMPRESSION: All lines are in good position. Progressive bilateral infiltrations. Electronically Signed: Royer Rowe MD at 16:01 EST , Service support , Chest X-Ray 05/30/18 08:00 IMPRESSION: Stable examination. Electronically Signed: Royer Rowe MD at 13:52 EST , Service support , Chest X-Ray 06/04/18 08:44 IMPRESSION: All the support tubes are unchanged. Prior study, there has been improved aeration of both lungs as described. Electronically Signed: Royer Rowe MD at 13:50 EST , Service support , Chest X-Ray 06/04/18 17:15 Chest X-Ray 06/07/18 14:45 IMPRESSION: Stable examination. Electronically Signed: Royer Rowe, at 15:36 EST , Service support , Chest X-Ray 06/11/18 08:57 IMPRESSION: The tip of the tracheostomy is at 5.1 cm proximal to the ehsan. The appearance of both lungs is unchanged. Electronically Signed: Royer Rowe, at 14:04 EST , Service support , Nephrology General surgery [employer] Procedures: 2-D Echocardiogram, Peg tube placement, - - Status post dialysis catheter, status post tracheostomy tube Summary of Care Provided: 57-year-old female admitted for acute hypoxic/hypercapnic respiratory failure on 05/23/18. Patient was managed initially on BiPAP and later intubate and transferred to ICU. She has had a long and protracted course in the hospital. She was initially managed as acute hypoxic/hypercapnic respiratory failure secondary to severe multifocal community-acquired pneumonia. She remained in ICU until her discharge. She was treated with IV Levaquin. Respiratory panel was negative. Sputum cultures grew yeast not Selin. She was also managed as acute on chronic diastolic heart failure, troponins were also indeterminate. She was started with IV Lasix. Her renal function was increased from 1.28 to 2.78 with very poor urine output. Nephrology was consulted. Her renal function output continued to be worse; a dialysis catheter was placed on 05/26/18. She was started on dialysis. Her urine cultures grew Klebsiella pneumoniae. Patient completed her antibiotic therapy in the hospital. She had a PEG tube placed on 06/07/18. It was difficulty weaning the patient off ventilatory support. ENT was consulted and patient had tracheostomy on 06/11/18 She had fluid removal for her CHF with dialysis. Subjective: On the day of discharge, Objective: Physical exam: General: Alert, Cooperative, No apparent distress, - - obese, appears comfortable HEENT: Atraumatic, PERRLA, EOMI, Normocephalic, - - s/p tracheostomy Oral: Dry Mucosa Neck: Supple, - - Right sided tunneled dialysis catheter, Left IJ central line Lungs: Normal air movement Cardiovascular: Regular rate, Regular Rhythm, Normal S1, Normal S2, No murmurs Abdomen: Bowel Sounds Present, Soft, Non Tender, Non-Distended, No Hepato-splenomegaly, PEG tube in situ Extremities: Edema - Trace Skin: No rashes, No breakdown Musculoskeletal: No Tenderness to Palpation of Joints or Extremities Lymphatic: No Cervical, Supraclavicular, or Inguinal Adenopathy Neurological: Cranial nerves II-XII grossly intact Psych/Mental Status: Normal Affect, Appropriate - Physical Exam Vital Signs Temp Pulse Resp BP Pulse Ox 98.9 F 82 20 H 140/87 H 96 06/12/18 08:00 06/12/18 09:00 06/12/18 09:00 06/12/18 09:00 06/12/18 09:00 Oxygen Flow Rate (L/min) 50 Oxygen Delivery Method Mechanical Ventilator Weight: 132.2 kg Body Mass Index (BMI) 49.7 Finger Stick Blood Glucose 150 Intake and Output for Last 24 Hours 06/10/18 06/11/18 06/12/18 23:59 23:59 23:59 Intake Total 2165.2 / 2165.2 1744.9 / 1744.9 1210 / 1210 Output Total 780 / 780 2125 / 2125 75 / 75 Balance 1385.2 / 1385.2 -380.1 / -380.1 1135 / 1135 Laboratory Tests Past 24 Hrs 06/12/18 04:20 Sodium 142 Potassium 3.7 Chloride 104 Carbon Dioxide 28.0 Anion Gap 10 BUN 57 H Creatinine 2.63 H Estim Creat Clear Calc 22.09 Est GFR (MDRD) Af Amer 24 L Est GFR (MDRD) Non-Af 20 L BUN/Creatinine Ratio 21.7 H Glucose 104 Calcium 8.6 POC Glucose 06/12/18 06/12/18 06/11/18 06:27 01:51 22:13 POC Glucose 114 H 123 H 123 H 06/11/18 06/11/18 17:41 12:58 POC Glucose 122 H 181 H Discharge Diet: - - NPO, on tube feeds via PEG tube Home Medications: Medications to take at Discharge Ranitidine HCl 150 mg PO DAILY 05/23/18 Acetaminophen Liquid [Tylenol Liquid] 650 mg GT Q4H PRN PRN udc 06/12/18 Albuterol Aerosols [Ventolin Aerosols] 2.5 mg INHALATION Q2H PRN PRN vial.neb. 06/12/18 Atorvastatin Calcium [Lipitor] 40 mg GT QHS #0 06/12/18 Chlorhexidine 15 ml PO BID ml 06/12/18 Heparin Injection (Vial) [Heparin Na] 5,000 unit SC Q8 vial 06/12/18 Insulin Glargine [Lantus SoloStar Pen] 60 units SC BID pen 06/12/18 Insulin Lispro [Humalog KwikPen] See Protocol SC Q6 insuln.pen 06/12/18 Ipratropium/Albuterol Sulfate [Duoneb] 3 ml INHALATION Q4HWA.RT ampul.neb 06/12/18 Menthol/Lanolin/Calamine/Znox [Calmoseptine Ointment] 1 applic TOPICAL BID tube 06/12/18 Nystatin Powder [Mycostatin Powder] 1 applic TOPICAL TID bottle 06/12/18 Polyethylene Glycol 3350 [Miralax] 17 gm GT DAILY packet 06/12/18 Risperidone [Risperdal] 0.5 mg GT BID tablet 06/12/18 Risperidone [Risperdal] 2 mg GT BID tablet 06/12/18 Primary Care Physician: Richard Elizabeth MD [Primary Care Provider] - Please follow up with your Primary Care Physician in: within 1-2 weeks of discharge Disposition: [facility] Acute Care Minutes spent on discharge:: 55 Patient Condition:: Fair Medical Necessity - Tobacco Use Smoking Status: Never smoker Tobacco Use: Non-smoker Meaningful Use Info Meaningful Use Diagnoses (Choose all that apply): CHF - CHF GAVIN/ARB ordered at discharge?: Yes Documented LVEF (%): 55 Code Visit Inpatient E&M: 48541 [facility] Hosp
[2018-06-12] MEDS: Insulin Lispro 100 UNIT/ML INSULN.PEN SC (11:51)
[2018-06-12 12:00] LABS: Bedside Glucose 158 mg/dL (70-110)
--- NOTE | 2018-06-12 12:01 | PCM.PN.REN ---
Patient Problems: Active and Suspected Problems Chest pain (Acute) PNA (pneumonia) (Acute) Acute kidney injury (Acute) Subjective: no new events - Physical Exam General: Alert, Oriented x3, Cooperative HEENT: Atraumatic, PERRLA, EOMI, Normocephalic Neck: Supple, No JVD, Negative Carotid Bruits Lungs: Clear to auscultation, Normal air movement Cardiovascular: Regular rate, No murmurs Abdomen: Bowel Sounds Present, Soft, Non Tender Extremities: No edema, Capillary Refill Less than 3 Seconds Skin: No rashes, No breakdown Musculoskeletal: No Tenderness to Palpation of Joints or Extremities Psych/Mental Status: Normal Affect, Appropriate Vital Signs Temp Pulse Resp BP Pulse Ox 98.9 F 86 20 H 131/79 H 97 06/12/18 08:00 06/12/18 11:55 06/12/18 11:55 06/12/18 11:00 06/12/18 11:55 Oxygen Flow Rate (L/min) 50 Oxygen Delivery Method Mechanical Ventilator Weight: 132.2 kg Body Mass Index (BMI) 49.7 Finger Stick Blood Glucose 150 Intake and Output for Last 24 Hours 06/10/18 06/11/18 06/12/18 23:59 23:59 23:59 Intake Total 2165.2 / 2165.2 1744.9 / 1744.9 1210 / 1210 Output Total 780 / 780 2125 / 2125 75 / 75 Balance 1385.2 / 1385.2 -380.1 / -380.1 1135 / 1135 Laboratory Tests Past 24 Hrs 06/12/18 04:20 Sodium 142 Potassium 3.7 Chloride 104 Carbon Dioxide 28.0 Anion Gap 10 BUN 57 H Creatinine 2.63 H Estim Creat Clear Calc 22.09 Est GFR (MDRD) Af Amer 24 L Est GFR (MDRD) Non-Af 20 L BUN/Creatinine Ratio 21.7 H Glucose 104 Calcium 8.6 POC Glucose 06/12/18 06/12/18 06/12/18 11:50 06:27 01:51 POC Glucose 158 H 114 H 123 H 06/11/18 06/11/18 06/11/18 22:13 17:41 12:58 POC Glucose 123 H 122 H 181 H Medical Necessity - Tobacco Use Smoking Status: Never smoker Tobacco Use: Non-smoker Assessment/Plan All Active Problems Chest pain (Acute) PNA (pneumonia) (Acute) Acute kidney injury (Acute) 1-Acute kidney injury. Normal creatinine 2014. Patient presented with creatinine 1.07 mg/dL. UA showed 100 protein and 100 blood but no RBCs or white cell count. 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 C3/C4 are within normal limits. Hepatitis panel is negative No recovery of kidney function. Remains anuric Patient is currently hemodialysis dependent for metabolic and volume support. Dialysis started on May 28. 2-Acute respiratory failure from bilateral pneumonia. Ventilator support as per the [employer]. 7-[id number] pneumonia. On levaquin which is appropriately dosed for HD patient. Plan urine outpus is better possible early recovery dc to [facility] today. can assess for full recovery over at [facility] notified dialysis staff at [facility] in [place]
== END 2018-06-12 14:30 | DRG 4 ==
LOC: ED 16:48 → PCU 16:58 → ICU 05-24 12:14
PROVIDERS: Family Medicine; Hospitalist; Internal Medicine; Internal Medicine Critical Care Medicine; Internal Medicine Nephrology; Otolaryngology; Physician Assistant; Student in an Organized Health Care Education/Training Program; Surgery; Admitting Provider Internal Medicine; Emergency Provider Emergency Medicine; Family Provider Family Medicine; PCP Family Medicine; Referring Provider Internal Medicine; Visit Provider Internal Medicine
PROC: 0JH63XZ Insertion of Tunneled Vascular Access Device into Chest Subcutaneous Tissue and Fascia, Percutaneous Approach (ICD-10-PCS; principal; 2018-06-04 15:15)
PROC: 0DJ08ZZ Inspection of Upper Intestinal Tract, Via Natural or Artificial Opening Endoscopic (ICD-10-PCS; CPT 43235; principal; 2018-06-07 11:25)
PROC: 0B110F4 Bypass Trachea to Cutaneous with Tracheostomy Device, Open Approach (ICD-10-PCS; principal; 2018-06-11 07:15)
DX: J96.01 Acute respiratory failure with hypoxia (principal); N17.0 Acute kidney failure with tubular necrosis; I50.33 Acute on chronic diastolic (congestive) heart failure; J18.9 Pneumonia, unspecified organism; Z68.42 Body mass index [BMI] 45.0-49.9, adult; T82.898A Other specified complication of vascular prosthetic devices, implants and grafts, initial encounter; J96.02 Acute respiratory failure with hypercapnia; E66.01 Morbid (severe) obesity due to excess calories; F43.10 Post-traumatic stress disorder, unspecified; Z23 Encounter for immunization; F60.4 Histrionic personality disorder; F41.9 Anxiety disorder, unspecified; E11.65 Type 2 diabetes mellitus with hyperglycemia; I27.20 Pulmonary hypertension, unspecified; E78.5 Hyperlipidemia, unspecified; Z79.4 Long term (current) use of insulin
CPT/HCPCS: 31500; 31720; 36415; 36600; 71045; 71046; 71250; 74018; 76000; 80048; 80053; 80202; 81001; 82550; 82803; 82962; 83036; 83520; 83605; 83735; 83880; 84100; 84478; 84484; 85025; 85610; 85730; 86038; 86160; 86225; 86235; 86256; 86705; 86706; 87040; 87070; 87077; 87086; 87088; 87186; 87205; 87340; 87449; 87493; 87506; 87633; 87641; 90937; 93005; 93306; 94002; 94003; 94640; 94660; 95831; 97110; 97162; 97164; 97165; 97166; 97168; 97530; 97802; 97803; 99251; 99285; J2997; J7030; J7040; J7050; Q9957; 90686; A4216; C1750; C1751; C1752; C8929; G0257; G0463; J1940; J2405

== ENCOUNTER 2018-08-06 21:40 | Inpatient (IN) | payer MEDICARE, MEDICAID, SELFPAY ==
[2018-05-23 17:32] VITALS: BMI 49.7
[2018-08-06] VITALS (8 sets, daily range): BP systolic 146–164; BP diastolic 68–84; PULSE 100–107; RESP 21–31; TEMP 36.9–37.3; O2SAT 94–100; BMI 48.0
--- NOTE | 2018-08-06 22:03 | EKG12_ITS ---
Test Reason : SOB Blood Pressure : / mmHG Vent. Rate : 102 BPM Atrial Rate : 102 BPM P-R Int : 136 ms QRS Dur : 074 ms QT Int : 328 ms P-R-T Axes : 037 002 041 degrees QTc Int : 427 ms Sinus tachycardia Low voltage QRS Nonspecific ST and T wave abnormality Abnormal ECG Confirmed by JUAN BRENNER, LAURI ([id number]), managing editor ARMEN JARAMILLO ([id number]) on 08/09/2018 9:13:04 AM Referred By: CARMELO Confirmed By:LAURI MARTINEZ MD
--- NOTE | 2018-08-06 22:04 | RAD_ITS ---
STUDY: X-RAY CHEST REASON FOR EXAM: Female, 57 years old. Shortness of breath. TECHNIQUE: Single AP portable view of the chest. COMPARISON: June 11, 2018. FINDINGS: Stable tracheostomy tube. The right jugular hemodialysis catheter, present on the prior study is no longer seen. There is worsening infiltrate in the right mid and lower lung with stranding seen at the left lung base. [place] right pleural effusion. Normal size heart. Normal mediastinum and lyric. Normal visualized pulmonary arteries. Normal visualized aortic arch and descending thoracic aorta. The thoracic spine is obscured by the mediastinum. Normal visualized ribs, clavicles, and shoulders. There is no demonstrated abnormality of the visualized soft tissue structures of the upper abdomen. RAD/Chest 1 View (Portable) IMPRESSION: 1. Increasing infiltrate in the right lung with questionable pleural effusion. 2. Prominent stranding of the left lung base. 3. Removal of the hemodialysis catheter seen on the prior study. Electronically Signed: Michael Braxton DO at 22:27 EDT Tel [phone], Service support ,
--- NOTE | 2018-08-06 22:06 | ED.VISSUMM ---
- ER Visit Summary Date of Service: 08/06/18 Chief Complaint: Shortness of breath History of Present Illness: The patient is a 57 F presents for worsening shortness of breath. Patient was recently discharged to a [facility] facility for rehab after a prolonged complicated hospitalization for pneumonia and respiratory failure. Patient had a trach placed approximately 1 month ago. She also has a indwelling Tovar catheter and has since had a feeding tube removed. She has been developing worsening shortness of breath today. Patient has history of diabetes, CHF and COPD, and is a non-smoker. She was on dialysis temporarily but states she is no longer doing dialysis. Physical Examination: Vital signs: afebrile, hemodynamically stable, 98% on nonrebreather General: well nourished, well developed, BMI of 48, in respiratory distress Skin: warm, pale and moist HEENT: normocephalic and atraumatic; PERRL, EOMI, moist mucous membranes Cardiovascular: Tachycardic rate and rhythm without murmurs, symmetric peripheral edema, 2+ pulses all distal extremities Respiratory: Moderate increased work of breathing, tachypnea, lung exam limited secondary to body habitus, trach in place Abdominal: Abdomen is soft, nontender with normoactive bowel sounds, no guarding or rebound, no masses MSK: Moves all extremities, no deformities, generalized weakness Neuro: Awake and alert, oriented ?4. No facial droop, sensation and motor function intact and symmetric Test Results: Abnormal Lab Results 08/06/18 08/06/18 08/06/18 22:10 22:10 22:10 WBC 12.9 H RBC 3.52 L Hgb 9.7 L Hct 30.8 L MCV 87.5 MCH 27.6 MCHC 31.5 L RDW 17.1 H RDW Differential 54.3 H Plt Count 261 MPV 9.9 Immature Gran % (Auto) 0.200 Neut % (Auto) 83.0 H Lymph % (Auto) 7.8 L [place] % (Auto) 8.8 Eos % (Auto) 0.0 Baso % (Auto) 0.2 Absolute Neuts (auto) 10.8 H Absolute Lymphs (auto) 1.01 Total Counted Not Reportable PT 13.9 INR 1.1 APTT 26.2 Sodium 140 Potassium 3.9 Chloride 103 Carbon Dioxide 30.0 Anion Gap 7 BUN 9 Creatinine 0.57 Estim Creat Clear Calc 101.94 Est GFR (MDRD) Af Amer 141 Est GFR (MDRD) Non-Af 117 BUN/Creatinine Ratio 15.9 Glucose 115 H Lactic Acid Calcium 9.5 Total Bilirubin 0.30 AST 18 ALT 20 Alkaline Phosphatase 99 Troponin I < 0.015 Total Protein 7.1 Albumin 2.3 L Globulin 4.8 H Albumin/Globulin Ratio 0.5 L Urine Color Urine Clarity Urine pH Ur Specific [place] Urine Protein Urine Glucose (UA) Urine Ketones Urine Occult Blood Urine Nitrite Urine Bilirubin Urine Urobilinogen Ur Leukocyte Esterase Urine RBC Urine WBC Ur Squamous Epith Cells Urine Bacteria Urine Mucus 08/06/18 08/06/18 22:10 23:28 WBC RBC Hgb Hct MCV MCH MCHC RDW RDW Differential Plt Count MPV Immature Gran % (Auto) Neut % (Auto) Lymph % (Auto) [place] % (Auto) Eos % (Auto) Baso % (Auto) Absolute Neuts (auto) Absolute Lymphs (auto) Total Counted PT INR APTT Sodium Potassium Chloride Carbon Dioxide Anion Gap BUN Creatinine Estim Creat Clear Calc Est GFR (MDRD) Af Amer Est GFR (MDRD) Non-Af BUN/Creatinine Ratio Glucose Lactic Acid 0.9 Calcium Total Bilirubin AST ALT Alkaline Phosphatase Troponin I Total Protein Albumin Globulin Albumin/Globulin Ratio Urine Color Yellow Urine Clarity Sl. Cloudy Urine pH 6.5 Ur Specific [place] 1.015 Urine Protein 30 H Urine Glucose (UA) Normal Urine Ketones Negative Urine Occult Blood 10 H Urine Nitrite Negative Urine Bilirubin Negative Urine Urobilinogen Normal Ur Leukocyte Esterase 25 H Urine RBC 0-5 SEEN Urine WBC 0-5 SEEN Ur Squamous Epith Cells 0-5 SEEN Urine Bacteria 0 SEEN Urine Mucus 0 SEEN Clinical Impression(s) from Imaging Studies Chest X-Ray 08/06/18 22:04 IMPRESSION: 1. Increasing infiltrate in the right lung with questionable pleural effusion. 2. Prominent stranding of the left lung base. 3. Removal of the hemodialysis catheter seen on the prior study. Electronically Signed: Michael Braxton DO at 22:27 EDT Tel [phone], Service support , Medications Given Sodium Chloride () 1,000 mls @ 150 mls/hr IV .Q6H40M [facility] Last Admin: 04/29/19 22:10 Dose: 150 mls/hr Vancomycin HCl 2,000 mg/ (Sodium Chloride) 540 mls @ 250 mls/hr IV X1 ONE Stop: 08/07/18 01:31 Discontinued Medications Albuterol Sulfate (Ventolin Aerosols) 2.5 mg INHALATION Q20M RUBI Stop: 08/06/18 22:56 Last Admin: 08/06/18 22:34 Dose: 2.5 mg Admin: 08/06/18 22:29 Dose: 2.5 mg Admin: 08/06/18 22:25 Dose: 2.5 mg Albuterol/Ipratropium (Duoneb) 3 ml INHALATION X1 ONE Stop: 08/06/18 22:06 Last Admin: 08/06/18 22:23 Dose: 3 ml Piperacillin Sod/Tazobactam (Sod 4.5 gm/ Sodium Chloride) 100 mls @ 200 mls/hr IV X1 ONE Stop: 08/06/18 23:54 Lorazepam (Ativan) 1 mg PO X1 ONE Stop: 08/06/18 23:15 Last Admin: 08/06/18 23:39 Dose: 1 mg Methylprednisolone (Solu-Medrol) 125 mg IV X1 ONE Stop: 08/06/18 22:06 Last Admin: 08/06/18 22:10 Dose: 125 mg Emergency Department Course and Treatment: Patient presents in obvious respiratory distress. She was 57% at her facility and increased to 100% on nonrebreather. Patient was weaned down to a nasal cannula and maintained good saturation. Patient was given breathing treatments and kept on oxygen. EKG showed sinus tachycardia with no ischemic changes. Chest x-ray was concerning for worsening infiltrate on the right. Patient had leukocytosis of 12.9. Labs otherwise unremarkable. Lactate 0.9. Because patient has had prolonged complicated course in the healthcare system, she was started on vancomycin and Zosyn for coverage for her healthcare associated pneumonia. She will require admission for her recurrent pneumonia, hypoxia on room air, and respiratory distress. Treatment Plan: [] Disposition: [] Impression: Pneumonia, healthcare associated; hypoxia, respiratory distress This note was generated with [employer] software. It may contain incorrect words, spelling, and punctuation that were not noted in review of the chart prior to signing ED Disposition - Plan for ED Patient: Referrals: Richard Elizabeth MD [Primary Care Provider] -
--- NOTE | 2018-08-06 22:09 | ED.DCSUM_ITS ---
- ER Visit Summary Date of Service: 08/06/18 Chief Complaint: Shortness of breath History of Present Illness: The patient is a 57 F presents for worsening shortness of breath. Patient was recently [facility] to a [facility] for [facility]hab after a prolonged complicated hospitalization for pneumonia and respiratory failure. Patient had a trach placed approximately 1 month ago. She also has a indwelling Tovar catheter and has since had a feeding tube removed. She has been developing worsening shortness of breath today. Patient has history of diabetes, CHF and COPD, and is a non-smoker. She was on dialysis temporarily but states she is no longer doing dialysis. Physical Examination: Vital signs: afebrile, hemodynamically stable, 98% on nonrebreather General: well nourished, well developed, BMI of 48, in respiratory distress Skin: warm, pale and moist HEENT: normocephalic and atraumatic; PERRL, EOMI, moist mucous membranes Cardiovascular: Tachycardic rate and rhythm without murmurs, symmetric peripheral edema, 2+ pulses all distal extremities Respiratory: Moderate increased work of breathing, tachypnea, lung exam limited secondary to body habitus, trach in place Abdominal: Abdomen is soft, nontender with normoactive bowel sounds, no guarding or rebound, no masses MSK: Moves all extremities, no deformities, generalized weakness Neuro: Awake and alert, oriented ?4. No facial droop, sensation and motor function intact and symmetric Test Results: Abnormal Lab Results 08/06/18 08/06/18 08/06/18 22:10 22:10 22:10 WBC 12.9 H RBC 3.52 L Hgb 9.7 L Hct 30.8 L MCV 87.5 MCH 27.6 MCHC 31.5 L RDW 17.1 H RDW Differential 54.3 H Plt Count 261 MPV 9.9 Immature Gran % (Auto) 0.200 Neut % (Auto) 83.0 H Lymph % (Auto) 7.8 L [place] % (Auto) 8.8 Eos % (Auto) 0.0 Baso % (Auto) 0.2 Absolute Neuts (auto) 10.8 H Absolute Lymphs (auto) 1.01 Total Counted Not Reportable PT 13.9 INR 1.1 APTT 26.2 Sodium 140 Potassium 3.9 Chloride 103 Carbon Dioxide 30.0 Anion Gap 7 BUN 9 Creatinine 0.57 Estim Creat Clear Calc 101.94 Est GFR (MDRD) Af Amer 141 Est GFR (MDRD) Non-Af 117 BUN/Creatinine Ratio 15.9 Glucose 115 H Lactic Acid Calcium 9.5 Total Bilirubin 0.30 AST 18 ALT 20 Alkaline Phosphatase 99 Troponin I < 0.015 Total Protein 7.1 Albumin 2.3 L Globulin 4.8 H Albumin/Globulin Ratio 0.5 L Urine Color Urine Clarity Urine pH Ur Specific [place] Urine Protein Urine Glucose (UA) Urine Ketones Urine Occult Blood Urine Nitrite Urine Bilirubin Urine Urobilinogen Ur Leukocyte Esterase Urine RBC Urine WBC Ur Squamous Epith Cells Urine Bacteria Urine Mucus 08/06/18 08/06/18 22:10 23:28 WBC RBC Hgb Hct MCV MCH MCHC RDW RDW Differential Plt Count MPV Immature Gran % (Auto) Neut % (Auto) Lymph % (Auto) [place] % (Auto) Eos % (Auto) Baso % (Auto) Absolute Neuts (auto) Absolute Lymphs (auto) Total Counted PT INR APTT Sodium Potassium Chloride Carbon Dioxide Anion Gap BUN Creatinine Estim Creat Clear Calc Est GFR (MDRD) Af Amer Est GFR (MDRD) Non-Af BUN/Creatinine Ratio Glucose Lactic Acid 0.9 Calcium Total Bilirubin AST ALT Alkaline Phosphatase Troponin I Total Protein Albumin Globulin Albumin/Globulin Ratio Urine Color Yellow Urine Clarity Sl. Cloudy Urine pH 6.5 Ur Specific [place] 1.015 Urine Protein 30 H Urine Glucose (UA) Normal Urine Ketones Negative Urine Occult Blood 10 H Urine Nitrite Negative Urine Bilirubin Negative Urine Urobilinogen Normal Ur Leukocyte Esterase 25 H Urine RBC 0-5 SEEN Urine WBC 0-5 SEEN Ur Squamous Epith Cells 0-5 SEEN Urine Bacteria 0 SEEN Urine Mucus 0 SEEN Clinical Impression(s) from Imaging Studies Chest X-Ray 08/06/18 22:04 IMPRESSION: 1. Increasing infiltrate in the right lung with questionable pleural effusion. 2. Prominent stranding of the left lung base. 3. Removal of the hemodialysis catheter seen on the prior study. Electronically Signed: Michael Braxton DO at 22:27 EDT Tel [phone], Service support , Medications Given Sodium Chloride () 1,000 mls @ 150 mls/hr IV .Q6H40M [facility] Last Admin: 04/29/19 22:10 Dose: 150 mls/hr Vancomycin HCl 2,000 mg/ (Sodium Chloride) 540 mls @ 250 mls/hr IV X1 ONE Stop: 08/07/18 01:31 Discontinued Medications Albuterol Sulfate (Ventolin Aerosols) 2.5 mg INHALATION Q20M RUBI Stop: 08/06/18 22:56 Last Admin: 08/06/18 22:34 Dose: 2.5 mg Admin: 08/06/18 22:29 Dose: 2.5 mg Admin: 08/06/18 22:25 Dose: 2.5 mg Albuterol/Ipratropium (Duoneb) 3 ml INHALATION X1 ONE Stop: 08/06/18 22:06 Last Admin: 08/06/18 22:23 Dose: 3 ml Piperacillin Sod/Tazobactam (Sod 4.5 gm/ Sodium Chloride) 100 mls @ 200 mls/hr IV X1 ONE Stop: 08/06/18 23:54 Lorazepam (Ativan) 1 mg PO X1 ONE Stop: 08/06/18 23:15 Last Admin: 08/06/18 23:39 Dose: 1 mg Methylprednisolone (Solu-Medrol) 125 mg IV X1 ONE Stop: 08/06/18 22:06 Last Admin: 08/06/18 22:10 Dose: 125 mg Emergency Department Course and Treatment: Patient presents in obvious respiratory distress. She was 57% at her facility and increased to 100% on nonrebreather. Patient was weaned down to a nasal cannula and maintained good saturation. Patient was given breathing treatments and kept on oxygen. EKG showed sinus tachycardia with no ischemic changes. Chest x-ray was concerning for worsening infiltrate on the right. Patient had leukocytosis of 12.9. Labs otherwise unremarkable. Lactate 0.9. Because patient has had prolonged complicated course in the healthcare system, she was started on vancomycin and Zosyn for coverage for her healthcare associated pneumonia. She will require admission for her recurrent pneumonia, hypoxia on room air, and respiratory distress. Treatment Plan: [] Disposition: [] Impression: Pneumonia, healthcare associated; hypoxia, respiratory distress This note was generated with [employer] software. It may contain incorrect words, spelling, and punctuation that were not noted in review of the chart cesar or to signing ED Disposition - Plan for ED Patient: Referrals: Richard Elizabeth MD [Primary Care Provider] -
[2018-08-06] MEDS: 0.9% Normal Saline 1,000 ML 150 ML IV (22:10)
[2018-08-06] MEDS: MethylPREDNISolone 125 MG/2 ML Vial IV (22:10)
[2018-08-06] MEDS: Ipratropium/Albuterol Sulfate 3 ML AMPUL.NEB INHALATION (22:23)
[2018-08-06] MEDS: Albuterol 2.5 MG/3 ML VIAL.NEB. INHALATION ×3 (22:25→22:34)
[2018-08-06 22:32] LABS: Absolute Lymphocyte Count 1.01 X10^3/ul (0.83-4.51); Absolute Neutrophil Count 10.8 X10^3/uL (2.0-7.7); Basophil# 0.02 X10^3/uL; Basophil% 0.2 % (0-1); Hematocrit 30.8 % (37-47); Hemoglobin 9.7 g/dl (12.0-15.0); Lymphocyte # 1.01 X10^3/ul (4.0); Lymphocyte % 7.8 % (19-41); Mean Corp Hgb Conc 31.5 g/gl (32-36); Mean Corpuscular Hgb 27.6 pg (27.0-32.0); Mean Corpuscular Volume 87.5 fL (81-99); Mean Platelet Vol. 9.9 fl (6.2-12.0); Monocyte# 1.14 X10^3/uL; Monocyte% 8.8 % (0-10); Neutrophil # 10.75 X10^3/uL (2.7-7.7); Platelet Count 261 K/mm3 (150-450); RBC Distribution Width CV 17.1 % (11.6-14.6); RBC Distribution Width SD 54.3 fl (35.1-43.9); Red Blood Count 3.52 M/mm3 (4.2-5.4); White Blood Count 12.9 K/mm3 (4.4-11.0)
[2018-08-06 22:44] LABS: International Normalized Ratio 1.1; Partial Thromboplast Time 26.2 Seconds (24.1-36.2); Prothrombin Time (Protime)PT. 13.9 SECONDS (11.7-14.9)
[2018-08-06 22:45] LABS: POSITIVE COUNT NO; POSITIVE DIFFERENTIAL NO; POSITIVE MORPHOLOGY NO
[2018-08-06 22:53] LABS: ALB/GLOB Ratio 0.5 RATIO (0.9-2.4); AST(SGOT) 18 U/L (15-37); Alanine Aminotransfer ALT/SGPT 20 U/L (13-56); Albumin, Serum 2.3 g/dL (3.2-5.0); Alkaline Phosphatase 99 U/L (45-117); Anion Gap 7 (5-15); BUN 9 mg/dL (7-18); BUN/Creat Ratio 15.9 RATIO (10-20); Calcium,Total 9.5 mg/dL (8.5-10.1); Chloride 103 mmol/L (98-107); Creatinine, Serum 0.57 mg/dL (0.55-1.02); EST Glomerular Filtration Rate 117 mL/min (>60); Est Glom Filt Rate - Afr Amer 141 mL/min (>60); Estimated Creatinine Clearance 101.94 ml/min; Globulin 4.8 g/dL (2.2-4.2); Glucose 115 mg/dL (74-106); Potassium 3.9 mmol/L (3.5-5.1); Protein, Total 7.1 g/dL (6.4-8.2); Sodium Level 140 mmol/L (136-145)
[2018-08-06 23:04] LABS: Lactic Acid 0.9 mmol/L (0.4-2.0)
[2018-08-06 23:33] LABS: Bacteria 0 SEEN /hpf (None Seen); Mucous, Urine 0 SEEN /hpf (<or=2+)
[2018-08-06 23:34] LABS: Color, Urine Yellow (Yellow); Glucose, Dipstick Normal (Normal); Ketone-Dipstick Negative (Negative); Leukocyte Esterase-Dipstick 25 /ul (Negative); Nitrite-Dipstick Negative (Negative); Occult Blood-Urine 10 /ul (Negative); Protein-Dipstick 30 mg/dl (Negative); Specific Gravity, Urine 1.015 (1.002-1.030); Urine Bilirubin Dipstick Negative (Negative); Urine Clarity Sl. Cloudy (Clear); Urine Urobilinogen Normal (Normal); Urine pH 6.5 (5.0 - 8.0)
[2018-08-06] MEDS: LORazepam 1 MG Tablet PO (23:39)
[2018-08-06 23:40] LABS: Red Blood Cells-Urine 0-5 SEEN /hpf (0-5); Squamous Epithelial Cells - UA 0-5 SEEN /hpf (5-10); White Blood Cells 0-5 SEEN /hpf (0-5)
[2018-08-07] VITALS (38 sets, daily range): BP systolic 75–179; BP diastolic 50–117; PULSE 51–125; RESP 7–59; TEMP 35.8–37; O2SAT 56–100; BMI 47.5; BMI 47.6
--- NOTE | 2018-08-07 00:31 | PCM.HP.STD ---
Problem List (1) Sepsis Status: Acute (2) Pneumonia Status: Acute History of Present Illness Date of Admission: 08/07/18 Chief Complaint: shortness of breath The patient is a 57 year old F with a significant history of posttraumatic stress disorder; diabetes and who had a prolonged history of a pneumonia for which reason she ended up being intubated and later trached; and with a prior history of a G-tube and with chronic Tovar presenting with progressively worsening shortness of breath that has been going on for about a months. Reportedly [facility] patient oxygen saturation was 57 percent. She was weaned down to nasal cannula while at the emergency department. Reportedly a temperature was 101.4 a couple of days ago. Associated with symptoms is chills. At the emergency department patient was tachycardic and tachypneic. A chest x-ray showed increasing infiltrates in the right lung with questionable pleural effusion. While admitted to the by[facility] Rian scott was called for patient because she was severely hypoxic with oxygen saturation in the thirties. Past Medical History Past Medical History (Chronic Problems): Chronic Problems Acute respiratory failure with hypoxia (Chronic) Morbid obesity (Chronic) Histrionic personality disorder (Chronic) PTSD (post-traumatic stress disorder) (Chronic) Anxiety (Chronic) Diabetes (Chronic) Allergies No Known Allergies Allergy (Verified 05/23/18 14:58) Home Medications: Ambulatory Orders Medication Instructions Recorded Albuterol Aerosols [Ventolin 2.5 mg INHALATION Q2H PRN PRN 06/12/18 Aerosols] vial.neb. Heparin Injection (Vial) [Heparin 5,000 unit SC Q8 vial 06/12/18 Na] Menthol/Lanolin/Calamine/Znox 1 applic TOPICAL BID tube 06/12/18 [Calmoseptine Ointment] Acetaminophen [Acetaminophen Extra 1,000 mg PO Q8H PRN PRN 08/07/18 Strength] Amino Acids/Protein Hydrolys [Pre 30 ml PO BID 08/07/18 Protein 20 Liquid] Atorvastatin Calcium 40 mg PO QHS 08/07/18 Citalopram [Celexa] 20 mg PO DAILY 08/07/18 Famotidine 20 mg PO DAILY 08/07/18 Insulin Glargine [Lantus (BKC)] 50 units SC BID 08/07/18 Insulin Lispro [Humalog KwikPen] See Protocol SQ ACHS 08/07/18 Metoprolol Tartrate 25 mg PO BID 08/07/18 Nystatin 5 ml PO 4X/DAY 08/07/18 Paliperidone [Paliperidone ER] 6 mg PO BID 08/07/18 Quetiapine Fumarate 25 mg PO QHS 08/07/18 Risperidone 2.5 mg PO BID 08/07/18 Surgical History: cholecystectomy, - - wrist surgery (R); bunion surgery. Lives: [facility] Smoking Status: Never smoker - *Family History Maternal History Items: Cancer - lung cancer Paternal History Items: Cancer - lung Review of Systems Constitutional: Reports: Chills, Fever. Denies: Weight Change HEENT: Denies: Head Aches, Sinus Congestion, Sinus Drainage Cardiovascular: Denies: Chest Pain, Palpitations Respiratory: Reports: Shortness of Breath, Sputum production - with trach; and reports increased secretions Gastrointestinal: Denies: Abdominal Pain, Nausea, Vomiting Genitourinary: Denies: Dysuria Musculoskeletal: Denies: Joint Pain, Joint Tenderness Skin: Denies: Rash, Wounds Neurological: Denies: Numbness, Tingling, Focal weakness Psychiatric: Denies: Anxiety, Depression, Homicidal Ideations, Suicidal Ideations Hematologic/ Lymphatic: Denies: Easy Bruising, Easy Bleeding VTE Information - Inpt Only VTE Present on Admission: No VTE Mechan Device Prophylaxis: None VTE Pharm Prophylaxis ordered?: Yes Patient Problems: Active and Suspected Problems Sepsis (Acute) Pneumonia (Acute) - Physical Exam General: - - Comatose HEENT: - - With trach Neck: Trachea Midline Lungs: Wheezes - Audible Wheezes at the ED while patient was responsive but later was diminished throughout Cardiovascular: Tachycardic Abdomen: Bowel Sounds Present, Soft, Non Tender - Initailly non tender before patient became unresponsive Extremities: Edema - bilateral legs Skin: No rashes, No breakdown Musculoskeletal: No Tenderness to Palpation of Joints or Extremities - before patient became unresponsive Neurological: - - Left sided weakness. Left sided upper extremity strength 2/5; left sided lower extremity strength 3/5. Psych/Mental Status: Normal Affect - before becoming unresponsive Vital Signs Temp Pulse Resp BP Pulse Ox 98.4 F 105 H 21 H 146/84 H 97 08/06/18 23:42 08/06/18 23:42 08/06/18 23:42 08/06/18 23:42 08/06/18 23:42 Oxygen Flow Rate (L/min) 6 Oxygen Delivery Method Nasal Cannula Weight: 135 kg Body Mass Index (BMI) 48.0 Finger Stick Blood Glucose 150 Laboratory Tests Past 24 Hrs 08/06/18 08/06/18 08/06/18 22:10 22:10 22:10 WBC 12.9 H RBC 3.52 L Hgb 9.7 L Hct 30.8 L MCV 87.5 MCH 27.6 MCHC 31.5 L RDW 17.1 H RDW Differential 54.3 H Plt Count 261 MPV 9.9 Immature Gran % (Auto) 0.200 Neut % (Auto) 83.0 H Lymph % (Auto) 7.8 L [place] % (Auto) 8.8 Eos % (Auto) 0.0 Baso % (Auto) 0.2 Absolute Neuts (auto) 10.8 H Absolute Lymphs (auto) 1.01 Total Counted Not Reportable PT 13.9 INR 1.1 APTT 26.2 Sodium 140 Potassium 3.9 Chloride 103 Carbon Dioxide 30.0 Anion Gap 7 BUN 9 Creatinine 0.57 Estim Creat Clear Calc 101.94 Est GFR (MDRD) Af Amer 141 Est GFR (MDRD) Non-Af 117 BUN/Creatinine Ratio 15.9 Glucose 115 H Lactic Acid Calcium 9.5 Total Bilirubin 0.30 AST 18 ALT 20 Alkaline Phosphatase 99 Troponin I < 0.015 Total Protein 7.1 Albumin 2.3 L Globulin 4.8 H Albumin/Globulin Ratio 0.5 L Urine Color Urine Clarity Urine pH Ur Specific [place] Urine Protein Urine Glucose (UA) Urine Ketones Urine Occult Blood Urine Nitrite Urine Bilirubin Urine Urobilinogen Ur Leukocyte Esterase Urine RBC Urine WBC Ur Squamous Epith Cells Urine Bacteria Urine Mucus 08/06/18 08/06/18 22:10 23:28 WBC RBC Hgb Hct MCV MCH MCHC RDW RDW Differential Plt Count MPV Immature Gran % (Auto) Neut % (Auto) Lymph % (Auto) [place] % (Auto) Eos % (Auto) Baso % (Auto) Absolute Neuts (auto) Absolute Lymphs (auto) Total Counted PT INR APTT Sodium Potassium Chloride Carbon Dioxide Anion Gap BUN Creatinine Estim Creat Clear Calc Est GFR (MDRD) Af Amer Est GFR (MDRD) Non-Af BUN/Creatinine Ratio Glucose Lactic Acid 0.9 Calcium Total Bilirubin AST ALT Alkaline Phosphatase Troponin I Total Protein Albumin Globulin Albumin/Globulin Ratio Urine Color Yellow Urine Clarity Sl. Cloudy Urine pH 6.5 Ur Specific [place] 1.015 Urine Protein 30 H Urine Glucose (UA) Normal Urine Ketones Negative Urine Occult Blood 10 H Urine Nitrite Negative Urine Bilirubin Negative Urine Urobilinogen Normal Ur Leukocyte Esterase 25 H Urine RBC 0-5 SEEN Urine WBC 0-5 SEEN Ur Squamous Epith Cells 0-5 SEEN Urine Bacteria 0 SEEN Urine Mucus 0 SEEN Assessment/Plan All Active Problems Sepsis (Acute) Pneumonia (Acute) Chest pain (Acute) PNA (pneumonia) (Acute) Acute kidney injury (Acute) The patient is a 57 year old F with a significant history of posttraumatic stress disorder; diabetes and who had a prolonged history of a pneumonia for which reason she ended up being intubated and later trached placed; and with a prior history of a G-tube and with chronic Tovar presenting with progressively worsening shortness of breath that has been going on for about a month and later became unresponsive; and who met SIRS criteria with tachycardia; and tachypnea and with radiographic evidence of a probable pneumonia consistent with sepsis secondary to pneumonia. Sepsis secondary to pneumonia Differential diagnoses include atelectasis secondary to mucous plug. Lactic acid: 0.9 RR: Highest of 26. Tachycardia: Has heart rate of 104 Blood culture ?2 is pending Chest x-ray: Showed increasing infiltrate in the right lung with questionable pleural effusion. Prominent stranding of the left lung base. Chest x-ray was independently reviewed and agree with radiology interpretation. Respiratory Gram stain and culture pending Antibiotics: Because of multiple bouts of pneumonia and being a [facility] patient, patient is at risk for multi drug resistant pneumonia. Patient was started on vancomycin and Zosyn in the emergency department. IV hydration: Received normal saline IV hydration in the emergency department. DuoNeb scheduled. Albuterol as needed Legionella antigen screen and Strep antigen ordered Patient received Solu-Medrol IV at the emergency department. Because of wheezes noted on auscultation and because of the severity of pneumonia Solu-Medrol continued. Patient was initially admitted to the medical surgical units and pulmonary medicine was consulted. However before pulmonary medicine could even see patient, patient became unresponsive and a code was called. Patient was subsequently transferred to the intensive care unit. Diabetes mellitus On presentation patient was euglycemic but with a blood glucose of 115. During Code patient's blood glucose was 315 Because patient will be npo for now, will de-escalate home long acting insulin. Continue correction scale insulin but with more stringent checks of every 4 hours PTSD Seroquel; risperidone; Paliperidone held due to unresponsiveness. Depression Celexa held while npo GERD On home ranitidine. Protonix IV ordered for now DVT prophylaxis Subcutaneous heparin Code Visit Inpatient E&M: 97200 Init Hosp L3
[2018-08-07] MEDS: Ipratropium/Albuterol Sulfate 3 ML AMPUL.NEB INHALATION ×5 (01:36→22:50)
--- NOTE | 2018-08-07 02:47 | PCM.RX.CS ---
Consult Pharmacy has been consulted to manage selected antiobiotic: Vancomycin Type of Consult: New start Suspected Infection: Sepsis Labs: Sodium 140 mmol/L (136-145) 08/06/18 22:10 Potassium 3.9 mmol/L (3.5-5.1) 08/06/18 22:10 Chloride 103 mmol/L (98-107) 08/06/18 22:10 Carbon Dioxide 30.0 mmol/L (21.0-32.0) 08/06/18 22:10 Anion Gap 7 (5-15) 08/06/18 22:10 BUN 9 mg/dL (7-18) 08/06/18 22:10 Creatinine 0.57 mg/dL (0.55-1.02) 08/06/18 22:10 Est GFR (MDRD) Af Amer 141 mL/min (>60) 08/06/18 22:10 Est GFR (MDRD) Non-Af 117 mL/min (>60) 08/06/18 22:10 BUN/Creatinine Ratio 15.9 RATIO (10-20) 08/06/18 22:10 Glucose 115 mg/dL (74-106) H 08/06/18 22:10 Goal Trough: 15-20 mcg/mL Pharmacy Plan for Drug Dosing: Pharmacy Service will continue to monitor and adjust dosing as required. Medications Vancomycin HCl 1,500 mg/ (Sodium Chloride) 530 mls @ 250 mls/hr IV Q8H RUBI Discontinued Medications Vancomycin HCl 2,000 mg/ (Sodium Chloride) 540 mls @ 250 mls/hr IV X1 ONE Stop: 08/07/18 01:31 Last Admin: 08/07/18 01:33 Dose: 250 mls/hr Follow-Up Labs: Trough Vancomycin Labs to be done on [date and time ordered]: 08/08 @ 2653
[2018-08-07] MEDS: Zolpidem Tartrate 5 MG Tablet 10 MG PO (02:53)
--- NOTE | 2018-08-07 05:37 | NURSING ---
Entered room and found patient struggling to breathe. Immediately called for help while getting vitals machine. O2=38% on nonrebreather, at this point, code was called.
--- NOTE | 2018-08-07 06:05 | RAD_ITS ---
STUDY: X-RAY CHEST REASON FOR EXAM: Female, 57 years old. Shortness of breath TECHNIQUE: Single AP portable view of the chest. COMPARISON: August 06, 2018 FINDINGS: There is a tracheostomy tube present. There is opacification of the right lower lobe. There is no demonstrated pleural abnormality. There is moderate cardiac enlargement. Normal mediastinum and lyric. Normal visualized pulmonary arteries. Normal visualized aortic arch and descending thoracic aorta. Normal visualized thoracic spine. Normal visualized ribs, clavicles, and shoulders. There is no demonstrated abnormality of the visualized soft tissue structures of the upper abdomen. RAD/Chest 1 View (Portable) IMPRESSION: Moderate cardiomegaly. Large right effusion cannot exclude loculation. Tracheostomy tube. Electronically Signed: Nohemy Cornejo MD at 16:50 EDT Tel , Service support ,
--- NOTE | 2018-08-07 06:10 | PCM.PN.BLA ---
Progress Note Code Blue: Responded to CODE Blue overheard page. Patient who was recently admitted was found unresponsive and with oxygenation saturation of 38% Earlier on patient had requested Ambien which she reported that she takes qhs prn. Ambien was ordered and patient received it. Nurse reports suctioning thick sputum earlier Upon my examination patient was tachycardic; and oxygen saturation was in the 50s. Respiratory therapist suctioned patient but no mucus was able to be suctioned. Patient was repeatedly bagged via her trach and non rebreather mask placed on nose EKG showed sinus tach Discussed the case with Dr. Calles, [facility] consultant and asked his assistance to come and see patient which he did. I appreciate his assistance Patient to be transferred to ICU
--- NOTE | 2018-08-07 06:18 | PN_ITS ---
Progress Note Code Blue: Responded to CODE Blue overheard page. Patient who was recently admitted was found unresponsive and with oxygenation saturation of 38% Earlier on patient had requested Ambien which she reported that she takes qhs prn. Ambien was ordered and patient received it. Nurse reports suctioning thick sputum earlier Upon my examination patient was tachycardic; and oxygen saturation was in the 50s. Respiratory therapist suctioned patient but no mucus was able to be suctioned. Patient was repeatedly bagged via her trach and non rebreather mask placed on nose EKG showed sinus tach Discussed the case with Dr. Calles, hall monitor and asked his assistance to come and see patient which he did. I appreciate his assistance Patient to be transferred to ICU
[2018-08-07 06:26] LABS: Base Excess 4 mmol/L (-2 to +2); Bicarbonate 34.7 mmol/L (22-26); Blood Gas Specimen Type ART; FI02 100; Mode VC+; O2 Delivery Device Vent; PEEP 5; PO2 96 mmHG (75-100); RR 10; SITE L Radial; SO2 92 % (95-99); Total Carbon Dioxide 39 mmol/L; Vt 100; pCO2 129.6 mmHg (35-45); pH 7.04 (7.35-7.45)
--- NOTE | 2018-08-07 06:37 | CPS ---
critical values read back to Dr. Calles
--- NOTE | 2018-08-07 06:43 | EKG12_ITS ---
Test Reason : CODE BLUE Blood Pressure : / mmHG Vent. Rate : 122 BPM Atrial Rate : 122 BPM P-R Int : 150 ms QRS Dur : 076 ms QT Int : 274 ms P-R-T Axes : 047 009 073 degrees QTc Int : 390 ms Sinus tachycardia with Fusion complexes Low voltage QRS Nonspecific ST and T wave abnormality Abnormal ECG When compared with ECG of 06-AUG-2018 22:28, MANUAL COMPARISON REQUIRED, DATA IS UNCONFIRMED Confirmed by RYLIE BURCH ([id number]), editorial intern CAROLINE CAMILO ([id number] on 08/13/2018 2:26:12 PM Referred By: PAMELA Confirmed By:RICO BURCH
[2018-08-07] MEDS: 0.9% NaCl Peripheral Flush Adult/Peds IV ×3 (06:48→21:39)
[2018-08-07] MEDS: Heparin Injection (Vial) 5,000 UNIT/ML VIAL 5000 UNIT SC ×3 (06:48→21:42)
--- NOTE | 2018-08-07 06:49 | CPS ---
Verbal order from Dr. Calles for need for sputum culture. Sputum sample obtained and sent to lab.
--- NOTE | 2018-08-07 07:03 | CON.PCM_ITS ---
Problem List (1) Sepsis Status: Acute (2) Pneumonia Status: Acute (3) Morbid obesity Status: Chronic (4) Histrionic personality disorder Status: Chronic (5) PTSD (post-traumatic stress disorder) Status: Chronic (6) Anxiety Status: Chronic (7) Diabetes Status: Chronic Reason for Consult Date of Consultation: 08/07/18 Reason for Consultation: CODE BLUE History of Present Illness: The patient is a 57 year old F, with past medical history listed below, who presented to [facility] on 08/06/2018 secondary to worsening shortness of breath. [facility] after prolonged complicated hospitalization for pneumonia, respiratory failure and sepsis resulting in a trach approximately 1 month ago. Patient does have a chronic indwelling Tovar, but G-tube has been removed. Patient reportedly is no longer requiring hemodialysis. Patient was noted to be 98% on a nonrebreather. Patient does have a tracheostomy, but this was reportedly capped. While in the ER, patient was noted to be in obvious respiratory distress. Patient was noted to be 57% at her facility and was placed on a nonrebreather. Patient had been weaned down to nasal cannula oxygen, but EKG continued to show sinus tachycardia and chest x-ray showed right-sided infiltrates with possible effusion. Lactate was within normal limits. Patient was started on vancomycin and Zosyn and admitted to the general medical floor for further evaluation. At approximately 5:40 AM, a MIGUELITO BLUE was called for decreased mental status. On my arrival, patient was being bagged. There was some concern for possible mucous plugging. Per report of those that arrived before me, patient did not lose a pulse and did not require CPR. Patient did not respond to any verbal stimuli on my arrival. Patient reportedly had never become bradycardic and has persistently been tachycardic throughout the hospitalization. Patient had reportedly received Ambien with a capped trach, but otherwise no interventions were reported. Patient did not receive any narcotics, but did receive 1 mg of Ativan around midnight. Patient was immediately transferred to the intensive care unit for further evaluation. Patient was placed on mechanical ventilation. Patient did receive aggressive in-line suctioning and cultures have been sent. Peak pressures are approximately 20. Chest x-ray does show possible pleural effusion. ABG showed significant respiratory acidosis in the setting of chronic metabolic alkalosis. Patient's PEEP was increased to 10. No family is at the bedside. Past Medical History Past Medical History (Chronic Problems): Chronic Problems Acute respiratory failure with hypoxia (Chronic) Morbid obesity (Chronic) Histrionic personality disorder (Chronic) PTSD (post-traumatic stress disorder) (Chronic) Anxiety (Chronic) Diabetes (Chronic) Allergies No Known Allergies Allergy (Verified 05/23/18 14:58) Home Medications: Ambulatory Orders Medication Instructions Recorded Albuterol Aerosols [Ventolin 2.5 mg INHALATION Q2H PRN PRN 06/12/18 Aerosols] vial.neb. Heparin Injection (Vial) [Heparin 5,000 unit SC Q8 vial 06/12/18 Na] Menthol/Lanolin/Calamine/Znox 1 applic TOPICAL BID tube 06/12/18 [Calmoseptine Ointment] Acetaminophen [Acetaminophen Extra 1,000 mg PO Q8H PRN PRN 08/07/18 Strength] Amino Acids/Protein Hydrolys [Pre 30 ml PO BID 08/07/18 Protein 20 Liquid] Atorvastatin Calcium 40 mg PO QHS 08/07/18 Citalopram [Celexa] 20 mg PO DAILY 08/07/18 Famotidine 20 mg PO DAILY 08/07/18 Insulin Glargine [Lantus (BKC)] 50 units SC BID 08/07/18 Insulin Lispro [Humalog KwikPen] See Protocol SQ ACHS 08/07/18 Metoprolol Tartrate 25 mg PO BID 08/07/18 Nystatin 5 ml PO 4X/DAY 08/07/18 Paliperidone [Paliperidone ER] 6 mg PO BID 08/07/18 Quetiapine Fumarate 25 mg PO QHS 08/07/18 Risperidone 2.5 mg PO BID 08/07/18 Surgical History: cholecystectomy, - - wrist surgery (R); bunion surgery. Lives: Intermediate Smoking Status: Never smoker - *Family History Maternal History Items: Cancer - lung cancer Paternal History Items: Cancer - lung Review of Systems Unable to obtain accurate/complete ROS d/t: Intubated and unresponsive Patient Problems: Active and Suspected Problems Sepsis (Acute) Pneumonia (Acute) Objective: Chest x-rays were personally reviewed. Described in HPI. - Physical Exam General: - - Mechanically ventilated. Fair synchrony. Morbidly obese. HEENT: Atraumatic, PERRLA, EOMI, Normocephalic, - - No scleral icterus or injection noted. Oral: Moist Mucosa, No Gingival or Mucosal Lesions/ Ulcerations Neck: Supple, No Nodes, Trachea Midline, - - Unable to assess JVD secondary to body habitus. Tracheostomy is clean, dry and intact. Lungs: No wheeze, Diminished - Especially in the right base, Rhonchi - Improved with suctioning, - - Symmetric expansion. Cardiovascular: Normal S1, Normal S2, No murmurs, No rub noted, No Gallop, Tachycardic Abdomen: Bowel Sounds Present, Soft, Non Tender, Non-Distended, Obese Extremities: No cyanosis, Clubbing, Edema Skin: No rashes, No breakdown Musculoskeletal: No Tenderness to Palpation of Joints or Extremities Lymphatic: No Cervical, Supraclavicular, or Inguinal Adenopathy Neurological: - - Positive gag and cough reflex. Spontaneous respirations appreciated. Psych/Mental Status: Flat Affect Vital Signs Temp Pulse Resp BP Pulse Ox 35.8 C L 87 16 85/68 L 100 08/07/18 06:36 08/07/18 06:36 08/07/18 06:36 08/07/18 06:36 08/07/18 06:36 Oxygen Flow Rate (L/min) 15 Oxygen Delivery Method Mechanical Ventilator Weight: 133.7 kg Body Mass Index (BMI) 47.5 Finger Stick Blood Glucose 150 Intake and Output for Last 24 Hours 08/05/18 08/06/18 08/07/18 23:59 23:59 23:59 Intake Total 300 / 300 Output Total 375 / 375 Balance -75 / -75 Microbiology Past 72 Hours 08/06/18 23:28 Streptococcus pneumoniae Antigen (M - Final Urine Catheter - Tovar 08/06/18 23:28 Legionella Antigen - Final Urine Catheter - Tovar Laboratory Tests Past 24 Hrs 08/06/18 08/06/18 08/06/18 22:10 22:10 22:10 WBC 12.9 H RBC 3.52 L Hgb 9.7 L Hct 30.8 L MCV 87.5 MCH 27.6 MCHC 31.5 L RDW 17.1 H RDW Differential 54.3 H Plt Count 261 MPV 9.9 Immature Gran % (Auto) 0.200 Neut % (Auto) 83.0 H Lymph % (Auto) 7.8 L Harlan % (Auto) 8.8 Eos % (Auto) 0.0 Baso % (Auto) 0.2 Absolute Neuts (auto) 10.8 H Absolute Lymphs (auto) 1.01 Total Counted Not Reportable PT 13.9 INR 1.1 APTT 26.2 Specimen Type Sample Site pH Bicarbonate Actual POC Total CO2 Base Excess O2 Saturation O2 % ABG pCO2 ABG pO2 Bk Test Respiration Rate O2 Delivery Device Minute Volume Vent Mode Tidal Volume POC PEEP Blood Gas Notified Whom Sodium 140 Potassium 3.9 Chloride 103 Carbon Dioxide 30.0 Anion Gap 7 BUN 9 Creatinine 0.57 Estim Creat Clear Calc 101.94 Est GFR (MDRD) Af Amer 141 Est GFR (MDRD) Non-Af 117 BUN/Creatinine Ratio 15.9 Glucose 115 H Lactic Acid Calcium 9.5 Total Bilirubin 0.30 AST 18 ALT 20 Alkaline Phosphatase 99 Troponin I < 0.015 Total Protein 7.1 Albumin 2.3 L Globulin 4.8 H Albumin/Globulin Ratio 0.5 L Urine Color Urine Clarity Urine pH Ur Specific Monetta Urine Protein Urine Glucose (UA) Urine Ketones Urine Occult Blood Urine Nitrite Urine Bilirubin Urine Urobilinogen Ur Leukocyte Esterase Urine RBC Urine WBC Ur Squamous Epith Cells Urine Bacteria Urine Mucus 08/06/18 08/06/18 08/07/18 22:10 23:28 06:19 WBC RBC Hgb Hct MCV MCH MCHC RDW RDW Differential Plt Count MPV Immature Gran % (Auto) Neut % (Auto) Lymph % (Auto) Harlan % (Auto) Eos % (Auto) Baso % (Auto) Absolute Neuts (auto) Absolute Lymphs (auto) Total Counted PT INR APTT Specimen Type ART Sample Site L Radial pH 7.04 L* Bicarbonate Actual 34.7 H POC Total CO2 39 Base Excess 4 H O2 Saturation 92 L O2 % 100 ABG pCO2 129.6 H* ABG pO2 96 Bk Test NA Respiration Rate 10 O2 Delivery Device Vent Minute Volume 1.00 Vent Mode VC+ Tidal Volume 100 POC PEEP 5 Blood Gas Notified Whom ICU MD Sodium Potassium Chloride Carbon Dioxide Anion Gap BUN Creatinine Estim Creat Clear Calc Est GFR (MDRD) Af Amer Est GFR (MDRD) Non-Af BUN/Creatinine Ratio Glucose Lactic Acid 0.9 Calcium Total Bilirubin AST ALT Alkaline Phosphatase Troponin I Total Protein Albumin Globulin Albumin/Globulin Ratio Urine Color Yellow Urine Clarity Sl. Cloudy Urine pH 6.5 Ur Specific Monetta 1.015 Urine Protein 30 H Urine Glucose (UA) Normal Urine Ketones Negative Urine Occult Blood 10 H Urine Nitrite Negative Urine Bilirubin Negative Urine Urobilinogen Normal Ur Leukocyte Esterase 25 H Urine RBC 0-5 SEEN Urine WBC 0-5 SEEN Ur Squamous Epith Cells 0-5 SEEN Urine Bacteria 0 SEEN Urine Mucus 0 SEEN Clinical Impression(s) from Imaging Studies Chest X-Ray 08/06/18 22:04 IMPRESSION: 1. Increasing infiltrate in the right lung with questionable pleural effusion. 2. Prominent stranding of the left lung base. 3. Removal of the hemodialysis catheter seen on the prior study. Electronically Signed: Michael Braxton DO at 22:27 EDT Tel [phone], Service support , Assessment/Plan Active and Suspected Problems Sepsis (Acute) Pneumonia (Acute) RECOMMENDATIONS: 1. Continue mechanical ventilation at current settings 2. Repeat ABG in 1 hour 3. Continue IV steroids, bronchodilators and antibiotics 4. Wean oxygen as tolerated, wean PEEP once oxygen 40% or less 5. Hold on insertion of NG for now IMPRESSIONS: 1. Acute on chronic combined respiratory failure secondary to probable pneumonia Patient with extensive right-sided changes noted on chest x-ray. Patient does have some purulent sputum noted. Patient is on empiric antibiotics, steroids and bronchodilators. Unclear if patient had exacerbation of hypercarbic respiratory failure secondary to sedative medications with capped trach and uncontrolled obstructive sleep apnea. Continue mechanical ventilation using higher PEEP to facilitate recruitment. Spontaneous awakening breathing trials per protocol. No sedation or fentanyl would be required given patient is already trached. 2. Type 2 diabetes mellitus Patient will have significantly elevated blood sugars given need for st eroid therapy. We will continue to monitor blood sugars closely. Will hold off on placing NG to facilitate tube feeds for now as patient may wake up sufficiently once sedation is held. 3. PTSD/depression/morbid obesity/GERD/debility Complicates care, management, recovery and prognosis. Okay to continue with baseline medications for now. Patient is currently n.p.o. given mechanical support, but these medications can be held until patient is able to take p.o. TIME: 80 minutes of critical care time spent addressing patient's acute combined respiratory failure, type 2 diabetes mellitus, reviewed all data and collaboration with care team (5:40 AM to 7:15 AM) Code Visit Procedures: [id number] Critial Care Addl 30 Min 9xxxx: [id number] Critical care first hour
[2018-08-07] MEDS: 0.9% NaCl IVPB Med Flush (250 mL) 15 ML IV (07:14)
[2018-08-07 07:51] LABS: Bedside Glucose 315 mg/dL (70-110)
[2018-08-07 08:06] LABS: Base Excess 8 mmol/L (-2 to +2); Bicarbonate 34.3 mmol/L (22-26); Blood Gas Specimen Type ART; FI02 100; Mode VC+; O2 Delivery Device Vent; PEEP 10; PO2 331 mmHG (75-100); RR 16; SITE R Radial; SO2 100 % (95-99); Time Given 753; Total Carbon Dioxide 36 mmol/L; Vt 500; pCO2 69.2 mmHg (35-45)
--- NOTE | 2018-08-07 09:17 | CT_ITS ---
STUDY: CT BRAIN WITHOUT CONTRAST REASON FOR EXAM: Female, 57 years old. Altered mental status. RADIATION DOSAGE (If Supplied By Facility): CTDIvol = ( 44.99 ) mGy, DLP = ( 1625.96 ) mGycm TECHNIQUE: Transaxial CT imaging of the brain was performed without administration of intravenous contrast material. Individualized dose optimization techniques were used for this CT. COMPARISON: Comparison is made with prior study dated August 01, 2014. FINDINGS: Normal soft tissue structures. Normal calvarium. Normal size ventricles and extra-axial spaces for the patient's age. Normal white matter tracts of the cerebral hemispheres. Normal basal ganglia and thalami. Normal brainstem. Normal cerebellum. There is no intracranial hemorrhage. There are no findings of an acute ischemic infarction. Atherosclerotic calcification of the cavernous portions of the internal carotid arteries bilaterally. Normal visualized paranasal sinuses. CT/Brain/Head without Contrast IMPRESSION: Normal unenhanced CT scan of the brain. Electronically Signed: Royer Rowe, at 12:44 EDT , Service support ,
--- NOTE | 2018-08-07 09:36 | PN_ITS ---
Progress Note She was admitted early this morning. 57-year-old with past medical history of type II DM, morbid obesity who was recently admitted for acute respiratory failure secondary to pneumonia status post intubation and tracheostomy who was admitted with progressive worsening shortness of breath, and initially admitted to the floor with sepsis secondary to pneumonia. On IV vancomycin and Zosyn. Patient had acute respiratory distress and subsequently was transferred to the ICU and ABG showed severe hypercapnia and patient was started on mechanical ventilation. At this time of being seen, patient was not sedated but she was difficult to arouse even with sternal rub. Pupils about 3 to 5 mm, reactive to light. Patient had received Ambien and later on PCO2 129.6 on ABG. Continue mechanical ventilation, senior behavioral scientist consulted, IV steroids, IV antibiotics, Accu-Cheks every 6 with insulin sliding scale
--- NOTE | 2018-08-07 09:47 | CASEMGMT ---
Patient is from [facility]. GASTON called Rimma at [facility] and she said Hunter Rice is still the guardian, however today is the last day. She said patient has had a decline and she thinks the guardianship should be continued. GASTON told her SW will call Hunter. GASTON called Hunter Rice' office and left a voice mail requesting a return call. Patient is on a vent and guardianship may need continued. Await call from patient's current legal guardian, [employer] Hunter Rice. Apoorva BRAVO MSW
--- NOTE | 2018-08-07 12:33 | CPS ---
Critical value ABG shown to Dr. Calles
--- NOTE | 2018-08-07 13:48 | CASEMGMT ---
GASTON received return call from Hunter Rice. He said his guardianship over patient ends at midnight tonight. SW asked if he would be able to get a continuance of current guardianship. He said he cannot. We would have to start over again with a new Statement of Expert Evaluation and [facility] would have to pay the filing fee of $195. GASTON told him GASTON will talk with physician and others regarding guardianship and cost. Apoorva BRAVO MSW
--- NOTE | 2018-08-07 14:04 | CASEMGMT ---
SW spoke with physician and at this time we will hold off on applying for guardianship. GASTON to follow. Apoorva KENNY
[2018-08-07] MEDS: CHLORHEXIDINE GLUC 2% CLOTH 1 EACH TOWELETTE TOPICAL (14:42)
[2018-08-07] MEDS: Chlorhexidine 15 ML PO (15:00)
--- NOTE | 2018-08-07 15:42 | CPS ---
Pt placed on 9L high flow nasal cannula
--- NOTE | 2018-08-07 15:49 | CPS ---
At approximately 1515 patient was taken off of ventilator and placed on 9L HFNC to maintain spo2 >90%. Per Dr. Calles use trach mask with cool aerosol set up HS WITHOUT speaking valve and ventilator PRN.
--- NOTE | 2018-08-07 15:53 | NURSING ---
Pt's significant other voiced concern about belongings from [facility]- spoke with Viridiana in ED who was unable to locate any of the pt's belongings. Awaiting call from [facility] r/t possibility of having belongings on floor.
--- NOTE | 2018-08-07 15:57 | CHAPLAIN ---
patient is sleeping and RN suggests a visit tomorrow would be beneficial
[2018-08-07 16:31] LABS: M R Staph aureus DNA By PCR Negative (Negative); Probe Check PASS; Specimen Processing Control PASS
[2018-08-07] MEDS: Insulin Lispro 100 UNIT/ML INSULN.PEN SC (17:05)
[2018-08-07] MEDS: RisperiDONE 2 MG Tablet PO (17:06)
[2018-08-07] MEDS: RisperiDONE 0.5 MG Tablet PO (17:06)
[2018-08-07 17:15] LABS: Bedside Glucose 310 mg/dL (70-110)
--- NOTE | 2018-08-07 18:11 | NURSING ---
Attempted IV restart x2 and unsuccessful. Additional RN will attempt.
[2018-08-07] MEDS: Acetaminophen 325 MG Tablet 650 MG PO (20:44)
[2018-08-07] MEDS: QUEtiapine 25 MG Tablet PO (21:41)
[2018-08-07] MEDS: Famotidine 20 MG Tablet GT (21:42)
[2018-08-08] VITALS (30 sets, daily range): BP systolic 104–166; BP diastolic 63–96; PULSE 57–100; RESP 11–25; TEMP 36.6–37.2; O2SAT 94–100
[2018-08-08] MEDS: Insulin Lispro 100 UNIT/ML INSULN.PEN SC ×5 (00:16→21:29)
[2018-08-08 00:20] LABS: Bedside Glucose 391 mg/dL (70-110)
[2018-08-08 04:51] LABS: Absolute Lymphocyte Count 1.16 X10^3/ul (0.83-4.51); Absolute Neutrophil Count 8.7 X10^3/uL (2.0-7.7); Basophil# 0.01 X10^3/uL; Basophil% 0.1 % (0-1); Hematocrit 30.7 % (37-47); Hemoglobin 9.5 g/dl (12.0-15.0); Lymphocyte # 1.16 X10^3/ul (4.0); Lymphocyte % 10.9 % (19-41); Mean Corp Hgb Conc 30.9 g/gl (32-36); Mean Corpuscular Hgb 26.9 pg (27.0-32.0); Mean Platelet Vol. 10.3 fl (6.2-12.0); Monocyte% 6.6 % (0-10); Neutrophil # 8.72 X10^3/uL (2.7-7.7); Neutrophil % 82.2 % (47-70); Platelet Count 334 K/mm3 (150-450); RBC Distribution Width CV 16.9 % (11.6-14.6); RBC Distribution Width SD 53.1 fl (35.1-43.9); Red Blood Count 3.53 M/mm3 (4.2-5.4); White Blood Count 10.6 K/mm3 (4.4-11.0)
[2018-08-08 04:58] LABS: POSITIVE COUNT NO; POSITIVE DIFFERENTIAL NO; POSITIVE MORPHOLOGY NO
[2018-08-08 05:01] LABS: Anion Gap 6 (5-15); BUN 23 mg/dL (7-18); BUN/Creat Ratio 22.5 RATIO (10-20); Calcium,Total 9.2 mg/dL (8.5-10.1); Chloride 101 mmol/L (98-107); Creatinine, Serum 1.02 mg/dL (0.55-1.02); EST Glomerular Filtration Rate 59 mL/min (>60); Est Glom Filt Rate - Afr Amer 72 mL/min (>60); Estimated Creatinine Clearance 56.97 ml/min; Glucose 376 mg/dL (74-106); Potassium 4.4 mmol/L (3.5-5.1); Sodium Level 139 mmol/L (136-145)
--- NOTE | 2018-08-08 05:05 | RAD_ITS ---
STUDY: X-RAY CHEST REASON FOR EXAM: Female, 57 years old. Shortness of breath. TECHNIQUE: Single AP portable view of the chest. COMPARISON: 08/07/2018. FINDINGS: There is a tracheostomy tube which appears to be in adequate position. The lungs are underexpanded. There is relative elevation of the right diaphragm with overlying atelectasis and/or infiltration in the right mid and lower lung granados. There is less prominent atelectasis in the left lung base. Small right pleural effusion cannot be excluded. The heart is enlarged. Normal mediastinum and lyric. Normal visualized pulmonary arteries. Normal visualized aortic arch and descending thoracic aorta. There are diffuse degenerative changes of the visualized thoracic spine. Normal visualized ribs, clavicles, and shoulders. There is no demonstrated abnormality of the visualized soft tissue structures of the upper abdomen. RAD/Chest 1 View (Portable) IMPRESSION: Persistent atelectasis or infiltration in the right lower lung field, possibly with a pleural effusion. Appearance is slightly improved from previous study. Tracheostomy tube in position. Cardiomegaly. Electronically Signed: Ruben Nugent MD at 5:24 EDT , Service support ,
--- NOTE | 2018-08-08 05:33 | CPS ---
Respiratory staff was called to PT bedside due to low O2 sats. Upon arrival, pt o2 sat was 90% on NRB. PT was placed on the vent to help oxygenate. PRN aerosol was given in line with vent. Pt o2 sats immediately odette to 95% then increased to 100%.
[2018-08-08] MEDS: Heparin Injection (Vial) 5,000 UNIT/ML VIAL 5000 UNIT SC ×3 (05:49→21:31)
[2018-08-08] MEDS: Albuterol 2.5 MG/3 ML VIAL.NEB. INHALATION (05:55)
[2018-08-08 06:06] LABS: Bedside Glucose 353 mg/dL (70-110)
[2018-08-08] MEDS: Ipratropium/Albuterol Sulfate 3 ML AMPUL.NEB INHALATION ×5 (06:40→22:32)
--- NOTE | 2018-08-08 07:02 | PCM.PN.INT ---
Subjective: Patient did okay yesterday. Patient was able to come off the ventilator yesterday afternoon. Overnight, patient remained capped, but did not receive any Ambien. Patient did okay for much of the evening, but in mortgage underwriter did require replacement of ventilatory support with pulmonary toileting secondary to hypoxemia. Patient remains on vent at this time. No complaints. Patient has tolerated the p.o. diet. Objective: Chest x-ray this morning appears to be somewhat improved compared to previous. Continues to have right lower lobe atelectasis with elevated right hemidiaphragm General: Alert, Cooperative, No apparent distress, - - Morbidly obese. HEENT: Atraumatic, PERRLA, EOMI, Normocephalic, - - No scleral icterus or injection noted. Oral: Moist Mucosa, No Gingival or Mucosal Lesions/ Ulcerations Neck: Supple, No JVD, No Nodes, Trachea Midline, - - Trach is clean, dry and intact Lungs: No wheeze, No rales, Diminished, Rhonchi - Right base, - - Symmetric expansion. Some dullness on the right Cardiovascular: Regular rate, Regular Rhythm, Normal S1, Normal S2, No murmurs, No rub noted, No Gallop Abdomen: Bowel Sounds Present, Soft, Non Tender, Non-Distended, Obese Extremities: No cyanosis, Clubbing, Edema Skin: - - No significant change compared to previous Musculoskeletal: No Tenderness to Palpation of Joints or Extremities, No Muscle Wasting Lymphatic: No Cervical, Supraclavicular, or Inguinal Adenopathy Neurological: Cranial nerves II-XII grossly intact, Neuro grossly intact Psych/Mental Status: Flat Affect, Impulsive Vital Signs Temp Pulse Resp BP Pulse Ox 36.6 C 86 21 H 116/67 98 08/08/18 04:00 08/08/18 06:00 08/08/18 06:00 08/08/18 06:00 08/08/18 06:00 Oxygen Flow Rate (L/min) 9 Oxygen Delivery Method Mechanical Ventilator Weight: 134 kg Body Mass Index (BMI) 47.5 Finger Stick Blood Glucose 150 Intake and Output for Last 24 Hours 08/06/18 08/07/18 08/08/18 23:59 23:59 23:59 Intake Total 1354 / 1354 877 / 877 Output Total 745 / 745 600 / 600 Balance 609 / 609 277 / 277 Labs (Last 48 Hours) 08/06/18 08/06/18 08/06/18 22:10 22:10 22:10 WBC 12.9 H RBC 3.52 L Hgb 9.7 L Hct 30.8 L MCV 87.5 MCH 27.6 MCHC 31.5 L RDW 17.1 H RDW Differential 54.3 H Plt Count 261 MPV 9.9 Immature Gran % (Auto) 0.200 Neut % (Auto) 83.0 H Lymph % (Auto) 7.8 L Gooding % (Auto) 8.8 Eos % (Auto) 0.0 Baso % (Auto) 0.2 Absolute Neuts (auto) 10.8 H Absolute Lymphs (auto) 1.01 Total Counted Not Reportable PT 13.9 INR 1.1 APTT 26.2 Specimen Type Sample Site pH Bicarbonate Actual POC Total CO2 Base Excess O2 Saturation O2 % ABG pCO2 ABG pO2 Bk Test Respiration Rate O2 Delivery Device Minute Volume Vent Mode Tidal Volume POC PEEP Blood Gas Notified Whom Blood Gas Notified Time Sodium 140 Potassium 3.9 Chloride 103 Carbon Dioxide 30.0 Anion Gap 7 BUN 9 Creatinine 0.57 Estim Creat Clear Calc 101.94 Est GFR (MDRD) Af Amer 141 Est GFR (MDRD) Non-Af 117 BUN/Creatinine Ratio 15.9 Glucose 115 H Lactic Acid Calcium 9.5 Total Bilirubin 0.30 AST 18 ALT 20 Alkaline Phosphatase 99 Troponin I < 0.015 Total Protein 7.1 Albumin 2.3 L Globulin 4.8 H Albumin/Globulin Ratio 0.5 L Urine Color Urine Clarity Urine pH Ur Specific [place] Urine Protein Urine Glucose (UA) Urine Ketones Urine Occult Blood Urine Nitrite Urine Bilirubin Urine Urobilinogen Ur Leukocyte Esterase Urine RBC Urine WBC Ur Squamous Epith Cells Urine Bacteria Urine Mucus MRSA (PCR) POC Glucose 08/06/18 08/06/18 08/07/18 22:10 23:28 05:52 WBC RBC Hgb Hct MCV MCH MCHC RDW RDW Differential Plt Count MPV Immature Gran % (Auto) Neut % (Auto) Lymph % (Auto) Gooding % (Auto) Eos % (Auto) Baso % (Auto) Absolute Neuts (auto) Absolute Lymphs (auto) Total Counted PT INR APTT Specimen Type Sample Site pH Bicarbonate Actual POC Total CO2 Base Excess O2 Saturation O2 % ABG pCO2 ABG pO2 Bk Test Respiration Rate O2 Delivery Device Minute Volume Vent Mode Tidal Volume POC PEEP Blood Gas Notified Whom Blood Gas Notified Time Sodium Potassium Chloride Carbon Dioxide Anion Gap BUN Creatinine Estim Creat Clear Calc Est GFR (MDRD) Af Amer Est GFR (MDRD) Non-Af BUN/Creatinine Ratio Glucose Lactic Acid 0.9 Calcium Total Bilirubin AST ALT Alkaline Phosphatase Troponin I Total Protein Albumin Globulin Albumin/Globulin Ratio Urine Color Yellow Urine Clarity Sl. Cloudy Urine pH 6.5 Ur Specific [place] 1.015 Urine Protein 30 H Urine Glucose (UA) Normal Urine Ketones Negative Urine Occult Blood 10 H Urine Nitrite Negative Urine Bilirubin Negative Urine Urobilinogen Normal Ur Leukocyte Esterase 25 H Urine RBC 0-5 SEEN Urine WBC 0-5 SEEN Ur Squamous Epith Cells 0-5 SEEN Urine Bacteria 0 SEEN Urine Mucus 0 SEEN MRSA (PCR) POC Glucose 315 H 08/07/18 08/07/18 08/07/18 06:19 07:54 14:40 WBC RBC Hgb Hct MCV MCH MCHC RDW RDW Differential Plt Count MPV Immature Gran % (Auto) Neut % (Auto) Lymph % (Auto) Good[place] % (Auto) Eos % (Auto) Baso % (Auto) Absolute Neuts (auto) Absolute Lymphs (auto) Total Counted PT INR APTT Specimen Type ART ART Sample Site L Radial R Radial pH 7.04 L* 7.30 L Bicarbonate Actual 34.7 H 34.3 H POC Total CO2 39 36 Base Excess 4 H 8 H O2 Saturation 92 L 100 H O2 % 100 100 ABG pCO2 129.6 H* 69.2 H* ABG pO2 96 331 H* Bk Test NA NA Respiration Rate 10 16 O2 Delivery Device Vent Vent Minute Volume 1.00 Vent Mode VC+ VC+ Tidal Volume 100 500 POC PEEP 5 10 Blood Gas Notified Whom ICU MD ICU Blood Gas Notified Time 753 Sodium Potassium Chloride Carbon Dioxide Anion Gap BUN Creatinine Estim Creat Clear Calc Est GFR (MDRD) Af Amer Est GFR (MDRD) Non-Af BUN/Creatinine Ratio Glucose Lactic Acid Calcium Total Bilirubin AST ALT Alkaline Phosphatase Troponin I Total Protein Albumin Globulin Albumin/Globulin Ratio Urine Color Urine Clarity Urine pH Ur Specific [place] Urine Protein Urine Glucose (UA) Urine Ketones Urine Occult Blood Urine Nitrite Urine Bilirubin Urine Urobilinogen Ur Leukocyte Esterase Urine RBC Urine WBC Ur Squamous Epith Cells Urine Bacteria Urine Mucus MRSA (PCR) Negative POC Glucose 08/07/18 08/08/1819 17:01 00:14 04:20 WBC 10.6 RBC 3.53 L Hgb 9.5 L Hct 30.7 L MCV 87.0 MCH 26.9 L MCHC 30.9 L RDW 16.9 H RDW Differential 53.1 H Plt Count 334 MPV 10.3 Immature Gran % (Auto) 0.200 Neut % (Auto) 82.2 H Lymph % (Auto) 10.9 L Good[place] % (Auto) 6.6 Eos % (Auto) 0.0 Baso % (Auto) 0.1 Absolute Neuts (auto) 8.7 H Absolute Lymphs (auto) 1.16 Total Counted Not Reportable PT INR APTT Specimen Type Sample Site pH Bicarbonate Actual POC Total CO2 Base Excess O2 Saturation O2 % ABG pCO2 ABG pO2 Bk Test Respiration Rate O2 Delivery Device Minute Volume Vent Mode Tidal Volume POC PEEP Blood Gas Notified Whom Blood Gas Notified Time Sodium Potassium Chloride Carbon Dioxide Anion Gap BUN Creatinine Estim Creat Clear Calc Est GFR (MDRD) Af Amer Est GFR (MDRD) Non-Af BUN/Creatinine Ratio Glucose Lactic Acid Calcium Total Bilirubin AST ALT Alkaline Phosphatase Troponin I Total Protein Albumin Globulin Albumin/Globulin Ratio Urine Color Urine Clarity Urine pH Ur Specific [place] Urine Protein Urine Glucose (UA) Urine Ketones Urine Occult Blood Urine Nitrite Urine Bilirubin Urine Urobilinogen Ur Leukocyte Esterase Urine RBC Urine WBC Ur Squamous Epith Cells Urine Bacteria Urine Mucus MRSA (PCR) POC Glucose 310 H 391 H 08/08/18 08/08/18 04:20 05:47 WBC RBC Hgb Hct MCV MCH MCHC RDW RDW Differential Plt Count MPV Immature Gran % (Auto) Neut % (Auto) Lymph % (Auto) [place] % (Auto) Eos % (Auto) Baso % (Auto) Absolute Neuts (auto) Absolute Lymphs (auto) Total Counted PT INR APTT Specimen Type Sample Site pH Bicarbonate Actual POC Total CO2 Base Excess O2 Saturation O2 % ABG pCO2 ABG pO2 Bk Test Respiration Rate O2 Delivery Device Minute Volume Vent Mode Tidal Volume POC PEEP Blood Gas Notified Whom Blood Gas Notified Time Sodium 139 Potassium 4.4 Chloride 101 Carbon Dioxide 32.0 Anion Gap 6 BUN 23 H Creatinine 1.02 Estim Creat Clear Calc 56.97 Est GFR (MDRD) Af Amer 72 Est GFR (MDRD) Non-Af 59 L BUN/Creatinine Ratio 22.5 H Glucose 376 H Lactic Acid Calcium 9.2 Total Bilirubin AST ALT Alkaline Phosphatase Troponin I Total Protein Albumin Globulin Albumin/Globulin Ratio Urine Color Urine Clarity Urine pH Ur Specific [place] Urine Protein Urine Glucose (UA) Urine Ketones Urine Occult Blood Urine Nitrite Urine Bilirubin Urine Urobilinogen Ur Leukocyte Esterase Urine RBC Urine WBC Ur Squamous Epith Cells Urine Bacteria Urine Mucus MRSA (PCR) POC Glucose 353 H Microbiology 08/07/18 06:20 Sputum, Tracheal Aspirate Gram Stain - Final 08/06/18 23:28 Urine Catheter - Tovar Streptococcus pneumoniae Antigen (M - Final 08/06/18 23:28 Urine Catheter - Tovar Legionella Antigen - Final Clinical Impression(s) from Imaging Studies Chest X-Ray 08/07/18 06:05 IMPRESSION: Moderate cardiomegaly. Large right effusion cannot exclude loculation. Tracheostomy tube. Electronically Signed: Nohemy Cornejo MD at 16:50 EDT Tel , Service support , Brain CT 08/07/18 09:17 IMPRESSION: Normal unenhanced CT scan of the brain. Electronically Signed: Royer Rowe, at 12:44 EDT , Service support , Chest X-Ray 08/08/18 05:05 IMPRESSION: Persistent atelectasis or infiltration in the right lower lung field, possibly with a pleural effusion. Appearance is slightly improved from previous study. Tracheostomy tube in position. Cardiomegaly. Electronically Signed: Ruben Nugent MD at 5:24 EDT , Service support , Medical Necessity - Tobacco Use Smoking Status: Never smoker Assessment/Plan All Active Problems Sepsis (Acute) Pneumonia (Acute) Chest pain (Acute) PNA (pneumonia) (Acute) Acute kidney injury (Acute) RECOMMENDATIONS: 1. Continue mechanical ventilation rescue as needed 2. No need for repeat ABG, breaks as tolerated 3. Continue IV steroids, bronchodilators and antibiotics 4. Wean oxygen as tolerated 5. Increase insulin support and transition to q. before meals and at bedtime IMPRESSIONS: 1. Acute on chronic combined respiratory failure secondary to probable pneumonia Patient with extensive right-sided changes noted on chest x-ray. Patient does have some purulent sputum noted. Patient is on empiric antibiotics, steroids and bronchodilators. Patient did have some hypoxemia overnight requiring mechanical ventilation rescue. Unclear if this is related to failure of pulmonary toileting versus obstructive sleep apnea. We will continue to attempt to uncap patient at night. Await cultures. We will continue to monitor in the intensive care unit. 2. Type 2 diabetes mellitus Patient will have significantly elevated blood sugars given need for steroid therapy. We will continue to monitor blood sugars closely. Patient currently taking a p.o. diet. Blood sugars are significantly elevated. Will increase basal insulin and sliding scale insulin. 3. PTSD/depression/morbid obesity/GERD/debility Complicates care, management, recovery and prognosis. Okay to continue with baseline medications for now. Patient is currently n.p.o. given mechanical support, but these medications can be held until patient is able to take p.o. TIME: 35 minutes of critical care time spent addressing patient's acute combined respiratory failure, type 2 diabetes mellitus, reviewed all data and collaboration with care team (6 AM to 7:10 AM) Code Visit 9xxxx: [id number] Critical care first hour
--- NOTE | 2018-08-08 07:49 | PCM.PN.HOSP ---
Patient Problems: Active and Suspected Problems Sepsis (Acute) Pneumonia (Acute) Subjective: Patient was seen and examined. She was taken off the vent yesterday in the afternoon. Overnight, she became hypoxic and had to be put back on the ventilator. She is awake and oriented x3, communicative via writing on the pad. The plan is to transition her to nasal cannula oxygen this morning Vitals/I&O's: Vital Signs Temp Pulse Resp BP Pulse Ox 97.9 F 86 21 H 116/67 98 08/08/18 04:00 08/08/18 06:00 08/08/18 06:00 08/08/18 06:00 08/08/18 06:00 Oxygen Flow Rate (L/min) 9 Oxygen Delivery Method Mechanical Ventilator Weight: 134 kg Body Mass Index (BMI) 47.5 Finger Stick Blood Glucose 150 Intake and Output for Last 24 Hours 08/06/18 08/07/18 08/08/18 23:59 23:59 23:59 Intake Total 1354 / 1354 877 / 877 Output Total 745 / 745 600 / 600 Balance 609 / 609 277 / 277 General: Alert, Oriented x3, Cooperative, No apparent distress HEENT: Atraumatic, PERRLA, EOMI, Normocephalic, - - Status post tracheostomy, on mechanical ventilation, CPAP mode Oral: Moist Mucosa Neck: Supple Lungs: Normal air movement, Diminished Cardiovascular: Regular rate, Regular Rhythm, Normal S1, Normal S2, No murmurs Abdomen: Bowel Sounds Present, Soft, Non Tender, Non-Distended, No Hepato-splenomegaly Extremities: No edema Skin: No rashes, No breakdown Musculoskeletal: No Tenderness to Palpation of Joints or Extremities Lymphatic: No Cervical, Supraclavicular, or Inguinal Adenopathy Neurological: Cranial nerves II-XII grossly intact, Neuro grossly intact Psych/Mental Status: Normal Affect, Appropriate Microbiology Past 72 Hours 08/07/18 06:20 Sputum, Tracheal Aspirate Gram Stain - Final 08/06/18 23:28 Urine Catheter - Tovar Streptococcus pneumoniae Antigen (M - Final 08/06/18 23:28 Urine Catheter - Tovar Legionella Antigen - Final Laboratory Results 08/07/18 05:52: POC Glucose 315 H 08/07/18 07:54: Specimen Type ART, Sample Site R Radial, pH 7.30 L, Bicarbonate Actual 34.3 H, POC Total CO2 36, Base Excess 8 H, O2 Saturation 100 H, O2 % 100, ABG pCO2 69.2 H*, ABG pO2 331 H*, Bk Test NA, Respiration Rate 16, O2 Delivery Device Vent, Vent Mode VC+, Tidal Volume 500, POC PEEP 10, Blood Gas Notified Whom ICU , Blood Gas Notified Time 753 08/07/18 14:40: MRSA (PCR) Negative 08/07/18 17:01: POC Glucose 310 H 08/08/18 00:14: POC Glucose 391 H 08/08/18 04:20: WBC 10.6, RBC 3.53 L, Hgb 9.5 L, Hct 30.7 L, MCV 87.0, MCH 26.9 L, MCHC 30.9 L, RDW 16.9 H, RDW Differential 53.1 H, Plt Count 334, MPV 10.3, Immature Gran % (Auto) 0.200, Neut % (Auto) 82.2 H, Lymph % (Auto) 10.9 L, Coleman % (Auto) 6.6, Eos % (Auto) 0.0, Baso % (Auto) 0.1, Absolute Neuts (auto) 8.7 H, Absolute Lymphs (auto) 1.16, Total Counted Not Reportable 08/08/18 04:20: Sodium 139, Potassium 4.4, Chloride 101, Carbon Dioxide 32.0, Anion Gap 6, BUN 23 H, Creatinine 1.02, Estim Creat Clear Calc 56.97, Est GFR (MDRD) Af Amer 72, Est GFR (MDRD) Non-Af 59 L, BUN/Creatinine Ratio 22.5 H, Glucose 376 H, Calcium 9.2 08/08/18 05:47: POC Glucose 353 H Current Medications Acetaminophen (Tylenol) 650 mg RECTAL Q4H PRN PRN PRN Reason: TEMPERATURE > 100.7F Acetaminophen (Tylenol) 650 mg PO Q6H PRN PRN PRN Reason: pain/fever >101.1 Last Admin: 08/07/18 20:44 Dose: 650 mg Albuterol Sulfate (Ventolin Aerosols) 2.5 mg INHALATION Q2H PRN PRN PRN Reason: Shortness of Breath/Wheezing Last Admin: 08/08/18 05:55 Dose: 2.5 mg Albuterol/Ipratropium (Duoneb) 3 ml INHALATION Q4H.RT [facility] Last Admin: 08/08/18 06:40 Dose: 3 ml Chlorhexidine Gluconate () 1 each TOPICAL DAILY [facility] Last Admin: 08/07/18 14:42 Dose: 1 each Chlorhexidine Gluconate () 15 ml PO BID [facility] Last Admin: 08/07/18 21:42 Dose: Not Given Dextrose (D50w Syringe) 0 gm IV X1 PRN; Protocol PRN Reason: Hypoglycemia Famotidine (Pepcid) 20 mg GT BID [facility] Last Admin: 08/07/18 21:42 Dose: 20 mg Glucagon () 1 mg IM .X1 PRN PRN Reason: Hypoglycemia Heparin Sodium (Porcine) (Heparin Na) 5,000 unit SC Q8 [facility] Last Admin: 08/08/18 05:49 Dose: 5,000 unit Sodium Chloride () 250 mls @ 15 mls/hr IV .[id number] PRN PRN Reason: SALINE FLUSH Last Admin: 08/07/18 07:14 Dose: 15 mls/hr Piperacillin Sod/Tazobactam (Sod 3.375 gm/ Sodium Chloride) 50 mls @ 12.5 mls/hr IV Q8 [facility] Last Admin: 08/08/18 05:49 Dose: 12.5 mls/hr Vancomycin IV Pharmacy to Dose (1,250 ea/ Sodium Chloride) 500 mls @ 250 mls/hr IV Q12 PRN; Protocol Insulin Glargine (Lantus (Bkc)) 20 units SC 06,18 [facility] Insulin Human Lispro (Humalog Kwikpen (Bkc)) 0 unit SC ACHS [facility]; Protocol Methylprednisolone (Solu-Medrol) 40 mg IV Q8 [facility] Last Admin: 08/08/18 05:49 Dose: 40 mg Ondansetron HCl (Zofran) 4 mg IV Q8H PRN PRN PRN Reason: Nausea Quetiapine Fumarate (Seroquel) 25 mg PO QHS [facility] Last Admin: 08/07/18 21:41 Dose: 25 mg Risperidone (Risperdal) 2 mg PO BID [facility] Last Admin: 08/07/18 17:06 Dose: 2 mg Risperidone (Risperdal) 0.5 mg PO BID [facility] Last Admin: 08/07/18 17:06 Dose: 0.5 mg Sodium Chloride () 5 - 15 ml IV UD PRN PRN Reason: SALINE FLUSH Last Admin: 08/07/18 21:39 Dose: 15 ml Zolpidem Tartrate (Ambien (Generic)) 10 mg PO QHS PRN PRN PRN Reason: SLEEP Medical Necessity - Tobacco Use Smoking Status: Never smoker Assessment/Plan All Active Problems Sepsis (Acute) Pneumonia (Acute) Chest pain (Acute) PNA (pneumonia) (Acute) Acute kidney injury (Acute) 57-year-old with past medical history of type II DM, morbid obesity who was recently admitted for acute respiratory failure secondary to pneumonia status post intubation and tracheostomy who was admitted with progressive worsening shortness of breath, and initially admitted to the floor with sepsis secondary to pneumonia. Patient had acute respiratory distress and subsequently was transferred to the ICU and ABG showed severe hypercapnia and patient was started on mechanical ventilation. 1. Acute on chronic combined respiratory failure secondary to probable pneumonia, possible failure of pulmonary toileting, appears to be improving, was taken off mechanical ventilator yesterday, switched back on mechanical ventilator overnight, will be transitioned to oxygen, wheelchair driver consulted, will follow up recommendations 2. Probable pneumonia, on IV vancomycin and Zosyn for now, no fevers seen, no leukocytosis Blood and sputum cultures are pending, Urine Legionella and streptococcal antigen is negative Will continue same antibiotics for now. 3. Type II DM, blood sugars are uncontrolled, Lantus has been increased, continue with Accu-Cheks with insulin sliding scale also. 4. Hypertension, controlled, metoprolol on hold, will continue to monitor. 5. Anxiety/depression/PTSD, continue home regimen 6. Morbid obesity, BMI 47.7 7. DVT prophylaxis - Heparin SC Code Visit Inpatient E&M: 54430 Subs Hosp L2
--- NOTE | 2018-08-08 07:58 | PN_ITS ---
Patient Problems: Active and Suspected Problems Sepsis (Acute) Pneumonia (Acute) Subjective: Patient was seen and examined. She was taken off the vent yesterday in the afternoon. Overnight, she became hypoxic and had to be put back on the ventilator. She is awake and oriented x3, communicative via writing on the pad. The plan is to transition her to nasal cannula oxygen this morning Vitals/I&O's: Vital Signs Temp Pulse Resp BP Pulse Ox 97.9 F 86 21 H 116/67 98 08/08/18 04:00 08/08/18 06:00 08/08/18 06:00 08/08/18 06:00 08/08/18 06:00 Oxygen Flow Rate (L/min) 9 Oxygen Delivery Method Mechanical Ventilator Weight: 134 kg Body Mass Index (BMI) 47.5 Finger Stick Blood Glucose 150 Intake and Output for Last 24 Hours 08/06/18 08/07/18 08/08/18 23:59 23:59 23:59 Intake Total 1354 / 1354 877 / 877 Output Total 745 / 745 600 / 600 Balance 609 / 609 277 / 277 General: Alert, Oriented x3, Cooperative, No apparent distress HEENT: Atraumatic, PERRLA, EOMI, Normocephalic, - - Status post tracheostomy, on mechanical ventilation, CPAP mode Oral: Moist Mucosa Neck: Supple Lungs: Normal air movement, Diminished Cardiovascular: Regular rate, Regular Rhythm, Normal S1, Normal S2, No murmurs Abdomen: Bowel Sounds Present, Soft, Non Tender, Non-Distended, No Hepato- splenomegaly Extremities: No edema Skin: No rashes, No breakdown Musculoskeletal: No Tenderness to Palpation of Joints or Extremities Lymphatic: No Cervical, Supraclavicular, or Inguinal Adenopathy Neurological: Cranial nerves II-XII grossly intact, Neuro grossly intact Psych/Mental Status: Normal Affect, Appropriate Microbiology Past 72 Hours 08/07/18 06:20 Sputum, Tracheal Aspirate Gram Stain - Final 08/06/18 23:28 Urine Catheter - Tovar Streptococcus pneumoniae Antigen (M - Final 08/06/18 23:28 Urine Catheter - Tovar Legionella Antigen - Final Laboratory Results 08/07/18 05:52: POC Glucose 315 H 08/07/18 07:54: Specimen Type ART, Sample Site R Radial, pH 7.30 L, Bicarbonate Actual 34.3 H, POC Total CO2 36, Base Excess 8 H, O2 Saturation 100 H, O2 % 100, ABG pCO2 69.2 H*, ABG pO2 331 H*, Bk Test NA, Respiration Rate 16, O2 Delivery Device Vent, Vent Mode VC+, Tidal Volume 500, POC PEEP 10, Blood Gas Notified Whom ICU , Blood Gas Notified Time 753 08/07/18 14:40: MRSA (PCR) Negative 08/07/18 17:01: POC Glucose 310 H 08/08/18 00:14: POC Glucose 391 H 08/08/18 04:20: WBC 10.6, RBC 3.53 L, Hgb 9.5 L, Hct 30.7 L, MCV 87.0, MCH 26.9 L, MCHC 30.9 L, RDW 16.9 H, RDW Differential 53.1 H, Plt Count 334, MPV 10.3, Immature Gran % (Auto) 0.200, Neut % (Auto) 82.2 H, Lymph % (Auto) 10.9 L, [place] % (Auto) 6.6, Eos % (Auto) 0.0, Baso % (Auto) 0.1, Absolute Neuts (auto) 8.7 H, Absolute Lymphs (auto) 1.16, Total Counted Not Reportable 08/08/18 04:20: Sodium 139, Potassium 4.4, Chloride 101, Carbon Dioxide 32.0, Anion Gap 6, BUN 23 H, Creatinine 1.02, Estim Creat Clear Calc 56.97, Est GFR (MDRD) Af Amer 72, Est GFR (MDRD) Non-Af 59 L, BUN/Creatinine Ratio 22.5 H, Glucose 376 H, Calcium 9.2 08/08/18 05:47: POC Glucose 353 H Current Medications Acetaminophen (Tylenol) 650 mg RECTAL Q4H PRN PRN PRN Reason: TEMPERATURE > 100.7F Acetaminophen (Tylenol) 650 mg PO Q6H PRN PRN PRN Reason: pain/fever >101.1 Last Admin: 08/07/18 20:44 Dose: 650 mg Albuterol Sulfate (Ventolin Aerosols) 2.5 mg INHALATION Q2H PRN PRN PRN Reason: Shortness of Breath/Wheezing Last Admin: 08/08/18 05:55 Dose: 2.5 mg Albuterol/Ipratropium (Duoneb) 3 ml INHALATION Q4H.RT [facility] Last Admin: 08/08/18 06:40 Dose: 3 ml Chlorhexidine Gluconate () 1 each TOPICAL DAILY [facility] Last Admin: 08/07/18 14:42 Dose: 1 each Chlorhexidine Gluconate () 15 ml PO BID [facility] Last Admin: 08/07/18 21:42 Dose: Not Given Dextrose (D50w Syringe) 0 gm IV X1 PRN; Protocol PRN Reason: Hypoglycemia Famotidine (Pepcid) 20 mg GT BID [facility] Last Admin: 08/07/18 21:42 Dose: 20 mg Glucagon () 1 mg IM .X1 PRN PRN Reason: Hypoglycemia Heparin Sodium (Porcine) (Heparin Na) 5,000 unit SC Q8 [facility] Last Admin: 08/08/18 05:49 Dose: 5,000 unit Sodium Chloride () 250 mls @ 15 mls/hr IV .[id number] PRN PRN Reason: SALINE FLUSH Last Admin: 08/07/18 07:14 Dose: 15 mls/hr Piperacillin Sod/Tazobactam (Sod 3.375 gm/ Sodium Chloride) 50 mls @ 12.5 mls/hr IV Q8 [facility] Last Admin: 08/08/18 05:49 Dose: 12.5 mls/hr Vancomycin IV Pharmacy to Dose (1,250 ea/ Sodium Chloride) 500 mls @ 250 mls/hr IV Q12 PRN; Protocol Insulin Glargine (Lantus (Bkc)) 20 units SC 06,18 [facility] Insulin Human Lispro (Humalog Kwikpen (Bkc)) 0 unit SC ACHS [facility]; Protocol Methylprednisolone (Solu-Medrol) 40 mg IV Q8 [facility] Last Admin: 08/08/18 05:49 Dose: 40 mg Ondansetron HCl (Zofran) 4 mg IV Q8H PRN PRN PRN Reason: Nausea Quetiapine Fumarate (Seroquel) 25 mg PO QHS [facility] Last Admin: 08/07/18 21:41 Dose: 25 mg Risperidone (Risperdal) 2 mg PO BID [facility] Last Admin: 08/07/18 17:06 Dose: 2 mg Risperidone (Risperdal) 0.5 mg PO BID [facility] Last Admin: 08/07/18 17:06 Dose: 0.5 mg Sodium Chloride () 5 - 15 ml IV UD PRN PRN Reason: SALINE FLUSH Last Admin: 08/07/18 21:39 Dose: 15 ml Zolpidem Tartrate (Ambien (Generic)) 10 mg PO QHS PRN PRN PRN Reason: SLEEP Medical Necessity - Tobacco Use Smoking Status: Never smoker Assessment/Plan All Active Problems Sepsis (Acute) Pneumonia (Acute) Chest pain (Acute) PNA (pneumonia) (Acute) Acute kidney injury (Acute) 57-year-old with past medical history of type II DM, morbid obesity who was recently admitted for acute respiratory failure secondary to pneumonia status post intubation and tracheostomy who was admitted with progressive worsening shortness of breath, and initially admitted to the floor with sepsis secondary to pneumonia. Patient had acute respiratory distress and subsequently was trans ferred to the ICU and ABG showed severe hypercapnia and patient was started on mechanical ventilation. 1. Acute on chronic combined respiratory failure secondary to probable pneumonia, possible failure of pulmonary toileting, appears to be improving, was taken off mechanical ventilator yesterday, switched back on mechanical ventilator overnight, will be transitioned to oxygen, automation controls expert consulted, will follow up recommendations 2. Probable pneumonia, on IV vancomycin and Zosyn for now, no fevers seen, no leukocytosis Blood and sputum cultures are pending, Urine Legionella and streptococcal antigen is negative Will continue same antibiotics for now. 3. Type II DM, blood sugars are uncontrolled, Lantus has been increased, continue with Accu-Cheks with insulin sliding scale also. 4. Hypertension, controlled, metoprolol on hold, will continue to monitor. 5. Anxiety/depression/PTSD, continue home regimen 6. Morbid obesity, BMI 47.7 7. DVT prophylaxis - Heparin SC Code Visit Inpatient E&M: 12943 Subs Hosp L2
[2018-08-08] MEDS: CHLORHEXIDINE GLUC 2% CLOTH 1 EACH TOWELETTE TOPICAL (08:30)
--- NOTE | 2018-08-08 10:10 | CASEMGMT ---
Patient is now alert and oriented X3. SW spoke with patient, introduced self and role at [facility]. SW talked with patient about doing a Healthcare POA and/or Healthcare LW. (Patient was not able to talk only mouth words. She has a trach and cannot put her speaking valve on due to her need for O2) Patient expressed she would like to do HCPOA. SW completed HCPOA with patient. She wanted her friend Delbert to be her HCPOA. She said she spoke with him about this and he is okay with it. She did give SW permission to call Delbert to clarify. SW called Delbert and he confirmed he is willing to be patient's HCPOA. SW confirmed his address and phone numbers. Copies were made and given to patient along with original. GASTON also placed a copy in patient's chart. GASTON notified RN of patient's HCPOA choice. Per physician patient will need a facility where she would be able to utilize a vent intermittently. SW will talk with [facility], but it is doubtful they would take patient if she is in need of a vent. SW will then talk with patient about an alternate facility. Apoorva BRAVO STAGE SETTING PAINTER APPRENTICE
--- NOTE | 2018-08-08 10:21 | CPS ---
Patient was on a Venti mask and was also on a cool aerosol.
[2018-08-08] MEDS: Chlorhexidine 15 ML PO (10:33)
[2018-08-08] MEDS: RisperiDONE 2 MG Tablet PO ×2 (10:36→21:30)
[2018-08-08] MEDS: RisperiDONE 0.5 MG Tablet PO ×2 (10:36→21:30)
[2018-08-08] MEDS: Famotidine 20 MG Tablet PO (10:36)
[2018-08-08 11:45] LABS: Bedside Glucose 328 mg/dL (70-110)
--- NOTE | 2018-08-08 13:57 | CASEMGMT ---
Addendum entered by Apoorva Khoury 08/08/18 14:38: Updated RN and physician on referral to [facility]. Apoorva BRAVO INSPECTOR FILTER TIP Original Note: SW found a few facilities that take patient's on vents and with trachs. SW spoke with patient and let her know this information. She said she would be willing to go to [facility] in [place]. SW told her SW will work on this referral. She asked when SW would know anything. SW told her SW will fax information and they will hopefully let SW know today. SW asked patient if it is okay to call [facility] regarding her care. She said that is fine. SW called Delia at [facility] and made referral. SW also faxed over information. SW then called [facility] and let him know patient is off vent and is alert and oriented. SW let him know she completed HCPOA papers and named Delbert as her POA. GASTON also told him she will be going to a different facility as she will need to be on a vent intermittently. GASTON then called Delbert and updates him on discharge plan. Plan: d/c to SNF that handles vents. Referral made to [facility]. Await their response. Apoorva BRAVO INSPECTOR FILTER TIP
--- NOTE | 2018-08-08 14:00 | NURSING ---
IV tea bag machine tender here. begin PICC placement
--- NOTE | 2018-08-08 14:18 | CHAPLAIN ---
Type of Pastoral Visit _x__ Initial Visit ___ Follow-up Visit ___ On-call Visit ___ General Patient Visit ___ Spiritual Assessment ___ Family Conference ___ Bereavement ___ Rapid Response ___ Code Blue ___ Other (describe below) Pastoral Care Referral From _x__ Patient ___ Family ___ Nurse ___ Physician ___ Nuclear Equipment Sales Engineer ___ Inspector Final Assembly Mechanical ___ Other (describe below) Sacrament/Intervention ___ Active listening ___ Anointing ___ Samaritan ___ Bereavement ___ Communion ___ Carli exploration ___ ___ Life review _x__ Prayer ___ Reconciliation ___ Sacrament of Sick _x__ Supportive presence ___ Wedding ___ Other (describe below) Pastoral Comments
--- NOTE | 2018-08-08 15:24 | NURSING ---
First attempt right basilic. Unable to access vein. Second attempt right brachial. Guidwire would not advance. Right side abandoned. One attempt to left basilic successful.
--- NOTE | 2018-08-08 15:42 | CASEMGMT ---
GASTON received a call from Pricila Bose the Respiratory Therapist from [facility] [place]. She wanted to come to [facility] to do an onsite visit to meet patient and make sure they have everything she needs. She will probably come tomorrow between 10 and 11am. GASTON will notify patient tomorrow. Apoorva KENNY
[2018-08-08 16:26] LABS: Bedside Glucose 356 mg/dL (70-110)
[2018-08-08] MEDS: 0.9% NaCl IVPB Med Flush (250 mL) 15 ML IV (16:49)
[2018-08-08 22:06] LABS: Bedside Glucose 430 mg/dL (70-110)
[2018-08-08] MEDS: Acetaminophen 325 MG Tablet 650 MG PO (22:51)
[2018-08-09] VITALS (24 sets, daily range): BP systolic 111–165; BP diastolic 56–101; PULSE 42–85; RESP 15–23; TEMP 36.4–37.2; O2SAT 91–100
[2018-08-09] MEDS: Ipratropium/Albuterol Sulfate 3 ML AMPUL.NEB INHALATION ×6 (02:11→23:03)
[2018-08-09] MEDS: Heparin Injection (Vial) 5,000 UNIT/ML VIAL 5000 UNIT SC ×3 (04:56→22:03)
[2018-08-09 05:03] LABS: Absolute Lymphocyte Count 0.79 X10^3/ul (0.83-4.51); Absolute Neutrophil Count 5.6 X10^3/uL (2.0-7.7); Hematocrit 29.8 % (37-47); Hemoglobin 9.2 g/dl (12.0-15.0); Lymphocyte # 0.79 X10^3/ul (4.0); Lymphocyte % 11.5 % (19-41); Mean Corp Hgb Conc 30.9 g/gl (32-36); Mean Corpuscular Hgb 27.1 pg (27.0-32.0); Mean Corpuscular Volume 87.6 fL (81-99); Mean Platelet Vol. 10.2 fl (6.2-12.0); Monocyte% 5.8 % (0-10); Neutrophil # 5.64 X10^3/uL (2.7-7.7); Neutrophil % 82.6 % (47-70); Platelet Count 371 K/mm3 (150-450); RBC Distribution Width CV 16.8 % (11.6-14.6); RBC Distribution Width SD 52.8 fl (35.1-43.9); White Blood Count 6.8 K/mm3 (4.4-11.0)
[2018-08-09 05:19] LABS: POSITIVE COUNT NO; POSITIVE DIFFERENTIAL NO; POSITIVE MORPHOLOGY NO
[2018-08-09 05:20] LABS: ALB/GLOB Ratio 0.5 RATIO (0.9-2.4); AST(SGOT) 8 U/L (15-37); Alanine Aminotransfer ALT/SGPT 22 U/L (13-56); Albumin, Serum 2.3 g/dL (3.2-5.0); Alkaline Phosphatase 85 U/L (45-117); Anion Gap 6 (5-15); BUN 27 mg/dL (7-18); BUN/Creat Ratio 27.4 RATIO (10-20); Calcium,Total 8.9 mg/dL (8.5-10.1); Chloride 100 mmol/L (98-107); Creatinine, Serum 0.98 mg/dL (0.55-1.02); EST Glomerular Filtration Rate 62 mL/min (>60); Est Glom Filt Rate - Afr Amer 75 mL/min (>60); Estimated Creatinine Clearance 59.29 ml/min; Globulin 4.6 g/dL (2.2-4.2); Glucose 353 mg/dL (74-106); Potassium 4.6 mmol/L (3.5-5.1); Protein, Total 6.9 g/dL (6.4-8.2); Sodium Level 139 mmol/L (136-145)
--- NOTE | 2018-08-09 08:47 | PCM.PN.HOSP ---
Patient Problems: Active and Suspected Problems Sepsis (Acute) Pneumonia (Acute) Subjective: Patient was seen and examined. Patient feels improved. Did well overnight with the tracheostomy uncapped. Denies any fever or chills. Vitals/I&O's: Vital Signs Temp Pulse Resp BP Pulse Ox 97.9 F 65 18 120/76 95 08/09/18 06:00 08/09/18 06:57 08/09/18 06:57 08/09/18 06:00 08/09/18 06:57 Oxygen Flow Rate (L/min) 10 Oxygen Delivery Method Trach Collar Weight: 138.9 kg Body Mass Index (BMI) 47.5 Finger Stick Blood Glucose 150 Intake and Output for Last 24 Hours 08/07/18 08/08/18 08/09/18 23:59 23:59 23:59 Intake Total 1354 / 1354 2222.5 / 2222.5 73.6 / 73.6 Output Total 745 / 745 1725 / 1725 700 / 700 Balance 609 / 609 497.5 / 497.5 -626.4 / -626.4 General: Alert, Oriented x3, Cooperative HEENT: Atraumatic, PERRLA, EOMI, Normocephalic Oral: Moist Mucosa Neck: Supple, - - s/p tracheostomy with trach collar Lungs: Clear to auscultation, Normal air movement Cardiovascular: Regular rate, Regular Rhythm, Normal S1, Normal S2, No murmurs Abdomen: Bowel Sounds Present, Soft, Non Tender, Non-Distended, No Hepato-splenomegaly Extremities: No edema Skin: No rashes, No breakdown Musculoskeletal: No Tenderness to Palpation of Joints or Extremities Lymphatic: No Cervical, Supraclavicular, or Inguinal Adenopathy Neurological: Cranial nerves II-XII grossly intact, Neuro grossly intact Psych/Mental Status: Normal Affect, Appropriate Microbiology Past 72 Hours 08/06/18 23:28 Urine Catheter - Tovar Urine Culture - Final Culture exhibits no growth. 08/07/18 06:20 Sputum, Tracheal Aspirate Gram Stain - Final 08/07/18 06:20 Sputum, Tracheal Aspirate Respiratory Culture - Final Staphylococcus aureus 08/06/18 23:20 Blood Culture (Wb) - Other Blood Culture - Preliminary No growth in 48 hours. 08/06/18 22:10 Blood Culture (Wb) - Right Forearm Blood Culture - Preliminary No growth in 48 hours. 08/06/18 23:28 Urine Catheter - Tovar Streptococcus pneumoniae Antigen (M - Final 08/06/18 23:28 Urine Catheter - Tovar Legionella Antigen - Final Laboratory Results 08/08/18 11:37: POC Glucose 328 H 08/08/18 16:21: POC Glucose 356 H 08/08/18 21:27: POC Glucose 430 H 08/09/18 04:50: WBC 6.8, RBC 3.40 L, Hgb 9.2 L, Hct 29.8 L, MCV 87.6, MCH 27.1, MCHC 30.9 L, RDW 16.8 H, RDW Differential 52.8 H, Plt Count 371, MPV 10.2, Immature Gran % (Auto) 0.100, Neut % (Auto) 82.6 H, Lymph % (Auto) 11.5 L, [place] % (Auto) 5.8, Eos % (Auto) 0.0, Baso % (Auto) 0.0, Absolute Neuts (auto) 5.6, Absolute Lymphs (auto) 0.79 L, Total Counted Not Reportable 08/09/18 04:50: Sodium 139, Potassium 4.6, Chloride 100, Carbon Dioxide 33.0 H, Anion Gap 6, BUN 27 H, Creatinine 0.98, Estim Creat Clear Calc 59.29, Est GFR (MDRD) Af Amer 75, Est GFR (MDRD) Non-Af 62, BUN/Creatinine Ratio 27.4 H, Glucose 353 H, Calcium 8.9, Total Bilirubin 0.30, AST 8 L, ALT 22, Alkaline Phosphatase 85, Total Protein 6.9, Albumin 2.3 L, Globulin 4.6 H, Albumin/Globulin Ratio 0.5 L Current Medications Acetaminophen (Tylenol) 650 mg RECTAL Q4H PRN PRN PRN Reason: TEMPERATURE > 100.7F Acetaminophen (Tylenol) 650 mg PO Q6H PRN PRN PRN Reason: pain/fever >101.1 Last Admin: 08/08/18 22:51 Dose: 650 mg Albuterol Sulfate (Ventolin Aerosols) 2.5 mg INHALATION Q2H PRN PRN PRN Reason: Shortness of Breath/Wheezing Last Admin: 08/08/18 05:55 Dose: 2.5 mg Albuterol/Ipratropium (Duoneb) 3 ml INHALATION Q4H.RT [facility] Last Admin: 08/09/18 06:57 Dose: 3 ml Chlorhexidine Gluconate () 1 each TOPICAL DAILY [facility] Last Admin: 08/08/18 08:30 Dose: 1 each Chlorhexidine Gluconate () 15 ml PO BID [facility] Last Admin: 08/08/18 21:31 Dose: Not Given Dextrose (D50w Syringe) 0 gm IV X1 PRN; Protocol PRN Reason: Hypoglycemia Famotidine (Pepcid) 20 mg PO DAILY [facility] Last Admin: 08/08/18 10:36 Dose: 20 mg Glucagon () 1 mg IM .X1 PRN PRN Reason: Hypoglycemia Heparin Sodium (Porcine) (Heparin Na) 5,000 unit SC Q8 [facility] Last Admin: 08/09/18 04:56 Dose: 5,000 unit Sodium Chloride () 250 mls @ 15 mls/hr IV .[id number] PRN PRN Reason: SALINE FLUSH Last Admin: 08/08/18 16:49 Dose: 15 mls/hr Piperacillin Sod/Tazobactam (Sod 3.375 gm/ Sodium Chloride) 50 mls @ 12.5 mls/hr IV Q8 [facility] Last Admin: 08/09/18 04:58 Dose: 12.5 mls/hr Insulin Glargine (Lantus (Bkc)) 40 units SC 11,22 [facility] Insulin Human Lispro (Humalog Kwikpen (Bkc)) 0 unit SC ACHS [facility]; Protocol Last Admin: 08/08/18 21:29 Dose: 16 u Methylprednisolone (Solu-Medrol) 40 mg IV Q8 [facility] Last Admin: 08/09/18 04:56 Dose: 40 mg Ondansetron HCl (Zofran) 4 mg IV Q8H PRN PRN PRN Reason: Nausea Risperidone (Risperdal) 2 mg PO BID [facility] Last Admin: 08/08/18 21:30 Dose: 2 mg Risperidone (Risperdal) 0.5 mg PO BID [facility] Last Admin: 08/08/18 21:30 Dose: 0.5 mg Sodium Chloride () 5 - 15 ml IV UD PRN PRN Reason: SALINE FLUSH Last Admin: 08/07/18 21:39 Dose: 15 ml Medical Necessity - Tobacco Use Smoking Status: Never smoker Assessment/Plan All Active Problems Sepsis (Acute) Pneumonia (Acute) Chest pain (Acute) PNA (pneumonia) (Acute) Acute kidney injury (Acute) 57-year-old with past medical history of type II DM, morbid obesity who was recently admitted for acute respiratory failure secondary to pneumonia status post intubation and tracheostomy who was admitted with progressive worsening shortness of breath, and initially admitted to the floor with sepsis secondary to pneumonia. Patient had acute respiratory distress and subsequently was transferred to the ICU and ABG showed severe hypercapnia and patient was started on mechanical ventilation. 1. Acute on chronic combined respiratory failure secondary to probable pneumonia, possible failure of pulmonary toileting, improving, Will continue with breathing treatments, uncapping the tracheostomy at night 2. MSSA pneumonia,improving, was on IV vancomycin and Zosyn for now, no fevers seen, no leukocytosis Cultures are negative, sputum cultures growing MSSA, transition to cefadroxil, aiming for 10 days total antibiotics treatment Urine Legionella and streptococcal antigen is negative Will continue same antibiotics for now. 3. Type II DM, blood sugars are uncontrolled, now on Lantus 40 units twice daily continue with Accu-Cheks with insulin sliding scale also. 4. Hypertension, controlled, metoprolol on hold, will continue to monitor. 5. Anxiety/depression/PTSD, continue home regimen 6. Morbid obesity, BMI 47.7 7. DVT prophylaxis - Heparin SC Code Visit Inpatient E&M: 26042 Subs Hosp L2
[2018-08-09] MEDS: Insulin Lispro 100 UNIT/ML INSULN.PEN SC ×4 (08:59→22:00)
[2018-08-09 09:05] LABS: Bedside Glucose 386 mg/dL (70-110)
--- NOTE | 2018-08-09 09:38 | PN_ITS ---
Subjective: Patient did well overnight. No acute issues were reported. Patient did use trach collar once cap was removed. Patient tolerating p.o. diet this morning. Blood sugars have been elevated. General: Alert, Oriented x3, Cooperative, No apparent distress, - - No conversational dyspnea. Morbidly obese. HEENT: Atraumatic, PERRLA, EOMI, Normocephalic, - - No scleral icterus or injection noted. Oral: Moist Mucosa, No Gingival or Mucosal Lesions/ Ulcerations Neck: Supple, No Nodes, Trachea Midline Lungs: No wheeze, No rales, Diminished, Rhonchi - Improved with coughing, - - Symmetric expansion Cardiovascular: Regular rate, Regular Rhythm, Normal S1, Normal S2, No murmurs, No rub noted, No Gallop Abdomen: Bowel Sounds Present, Soft, Non Tender, Non-Distended, Obese Extremities: No cyanosis, Clubbing, Edema Skin: - - No significant change compared to previous Musculoskeletal: No Tenderness to Palpation of Joints or Extremities Lymphatic: No Cervical, Supraclavicular, or Inguinal Adenopathy Neurological: Cranial nerves II-XII grossly intact, Neuro grossly intact, Motor Exam 5/5 strength throughout Psych/Mental Status: Flat Affect, Impulsive Vital Signs Temp Pulse Resp BP Pulse Ox 36.6 C 65 18 120/76 95 08/09/18 06:00 08/09/18 06:57 08/09/18 06:57 08/09/18 06:00 08/09/18 06:57 Oxygen Flow Rate (L/min) 10 Oxygen Delivery Method Trach Collar Weight: 138.9 kg Body Mass Index (BMI) 47.5 Finger Stick Blood Glucose 150 Intake and Output for Last 24 Hours 08/07/18 08/08/18 08/09/18 23:59 23:59 23:59 Intake Total 1354 / 1354 2222.5 / 2222.5 73.6 / 73.6 Output Total 745 / 745 1725 / 1725 700 / 700 Balance 609 / 609 497.5 / 497.5 -626.4 / -626.4 Labs (Last 48 Hours) 08/07/18 08/07/18 08/08/18 14:40 17:01 00:14 WBC RBC Hgb Hct MCV MCH MCHC RDW RDW Differential Plt Count MPV Immature Gran % (Auto) Neut % (Auto) Lymph % (Auto) Miller % (Auto) Eos % (Auto) Baso % (Auto) Absolute Neuts (auto) Absolute Lymphs (auto) Total Counted Sodium Potassium Chloride Carbon Dioxide Anion Gap BUN Creatinine Estim Creat Clear Calc Est GFR (MDRD) Af Amer Est GFR (MDRD) Non-Af BUN/Creatinine Ratio Glucose Calcium Total Bilirubin AST ALT Alkaline Phosphatase Total Protein Albumin Globulin Albumin/Globulin Ratio MRSA (PCR) Negative POC Glucose 310 H 391 H 08/08/18 08/08/18 08/08/18 04:20 04:20 05:47 WBC 10.6 RBC 3.53 L Hgb 9.5 L Hct 30.7 L MCV 87.0 MCH 26.9 L MCHC 30.9 L RDW 16.9 H RDW Differential 53.1 H Plt Count 334 MPV 10.3 Immature Gran % (Auto) 0.200 Neut % (Auto) 82.2 H Lymph % (Auto) 10.9 L Miller % (Auto) 6.6 Eos % (Auto) 0.0 Baso % (Auto) 0.1 Absolute Neuts (auto) 8.7 H Absolute Lymphs (auto) 1.16 Total Counted Not Reportable Sodium 139 Potassium 4.4 Chloride 101 Carbon Dioxide 32.0 Anion Gap 6 BUN 23 H Creatinine 1.02 Estim Creat Clear Calc 56.97 Est GFR (MDRD) Af Amer 72 Est GFR (MDRD) Non-Af 59 L BUN/Creatinine Ratio 22.5 H Glucose 376 H Calcium 9.2 Total Bilirubin AST ALT Alkaline Phosphatase Total Protein Albumin Globulin Albumin/Globulin Ratio MRSA (PCR) POC Glucose 353 H 08/08/18 08/08/18 08/08/18 11:37 16:21 21:27 WBC RBC Hgb Hct MCV MCH MCHC RDW RDW Differential Plt Count MPV Immature Gran % (Auto) Neut % (Auto) Lymph % (Auto) Miller % (Auto) Eos % (Auto) Baso % (Auto) Absolute Neuts (auto) Absolute Lymphs (auto) Total Counted Sodium Potassium Chloride Carbon Dioxide Anion Gap BUN Creatinine Estim Creat Clear Calc Est GFR (MDRD) Af Amer Est GFR (MDRD) Non-Af BUN/Creatinine Ratio Glucose Calcium Total Bilirubin AST ALT Alkaline Phosphatase Total Protein Albumin Globulin Albumin/Globulin Ratio MRSA (PCR) POC Glucose 328 H 356 H 430 H 08/09/18 08/09/18 08/09/18 04:50 04:50 08:49 WBC 6.8 RBC 3.40 L Hgb 9.2 L Hct 29.8 L MCV 87.6 MCH 27.1 MCHC 30.9 L RDW 16.8 H RDW Differential 52.8 H Plt Count 371 MPV 10.2 Immature Gran % (Auto) 0.100 Neut % (Auto) 82.6 H Lymph % (Auto) 11.5 L Miller % (Auto) 5.8 Eos % (Auto) 0.0 Baso % (Auto) 0.0 Absolute Neuts (auto) 5.6 Absolute Lymphs (auto) 0.79 L Total Counted Not Reportable Sodium 139 Potassium 4.6 Chloride 100 Carbon Dioxide 33.0 H Anion Gap 6 BUN 27 H Creatinine 0.98 Estim Creat Clear Calc 59.29 Est GFR (MDRD) Af Amer 75 Est GFR (MDRD) Non-Af 62 BUN/Creatinine Ratio 27.4 H Glucose 353 H Calcium 8.9 Total Bilirubin 0.30 AST 8 L ALT 22 Alkaline Phosphatase 85 Total Protein 6.9 Albumin 2.3 L Globulin 4.6 H Albumin/Globulin Ratio 0.5 L MRSA (PCR) POC Glucose 386 H Microbiology 08/06/18 23:28 Urine Catheter - Tovar Urine Culture - Final Culture exhibits no growth. 08/07/18 06:20 Sputum, Tracheal Aspirate Gram Stain - Final 08/07/18 06:20 Sputum, Tracheal Aspirate Respiratory Culture - Final Staphylococcus aureus 08/06/18 23:20 Blood Culture (Wb) - Other Blood Culture - Preliminary No growth in 48 hours. 08/06/18 22:10 Blood Culture (Wb) - Right Forearm Blood Culture - Preliminary No growth in 48 hours. Medical Necessity - Tobacco Use Smoking Status: Never smoker Assessment/Plan All Active Problems Sepsis (Acute) Pneumonia (Acute) Chest pain (Acute) PNA (pneumonia) (Acute) Acute kidney injury (Acute) RECOMMENDATIONS: 1. Transition to p.o. steroids and antibiotics 2. Uncap trach every night with sleep 3. Continue bronchodilators and aggressive pulmonary toileting 4. Wean oxygen as tolerated 5. Increase insulin support and transition to q. before meals and at bedtime IMPRESSIONS: 1. Acute on chronic combined respiratory failure secondary to MSSA pneumonia Patient with extensive right-sided changes noted on chest x-ray. Patient does have some purulent sputum noted. Will transition patient to p.o. antibiotics and prednisone. Likely complete a 10-day course of antibiotics and 5 days of prednisone. Patient did have some hypoxemia overnight requiring 1 Of trach, but patient tolerated well. Unclear if this is related to failure of pulmonary toileting versus obstructive sleep apnea. We will continue to attempt to uncap patient at night. 2. Type 2 diabetes mellitus Patient will have significantly elevated blood sugars given need for steroid therapy. We will continue to monitor blood sugars closely. Patient currently taking a p.o. diet. Blood sugars are significantly elevated. Will increase basal insulin and sliding scale insulin. 3. PTSD/depression/morbid obesity/GERD/debility Complicates care, management, recovery and prognosis. Okay to continue with baseline medications for now. Patient is currently n.p.o. given mechanical support, but these medications can be held until patient is able to take p.o. Code Visit Inpatient E&M: 16018 [facility] L3
--- NOTE | 2018-08-09 09:40 | CASEMGMT ---
Addendum entered by Terra Tran 08/09/18 12:25: GASTON spoke w/Delia from [facility]. They can take pt but would like SW to at least get the process started to get pt the correct Medicaid to cover alf. GASTON explained waiting for [facility] to call this SW back in regard to if the bank statement is needed, and if it is needed pt will need to sign financial POA for pt to give Delbert financial POA, and then he can get the bank statement. Delia states understanding. GASTON will continue to follow, still waiting for call from [facility] and for Delbert to get here to visit pt. EVA Bustos Original Note: Addendum entered by Terra Tran 08/09/18 11:48: GASTON faxed updates to [facility]. SW received a message from Delia at [facility] inquiring about pt's insurance, explained her Medicaid covers Medicare premiums and not alf, asked about getting the Medicaid converted to the Medicaid that will cover alf. GASTON called Rimma at [facility] as this is where pt was prior, she states that [facility] will just need a bank statement showing pt has less than $2000 in the bank and this should be enough to convert the insurance. Pt had been at [facility] a week. GASTON spoke w/pt, explained that [facility] is looking at whether or not they can take pt, explained we may need to work on getting her Medicaid converted to the type that will cover the alf copay. GASTON explained a bank statement is needed in order to do this. Pt agreeable to have SW call her boyfriend Delbert to see if he can bring in the bank statement. She states he will be coming in to see her today and will want to speak w/this SW. SW can come over and speak to him when he is here. GASTON called pt's boyfriend Delbert, he is at [facility] picking up pt's belongings. He is coming here after. GASTON explained we are working on getting pt into [facility], asked him about bringing in a bank statement to get the insurance changed. He states that pt does not get any bank statements as far as he knows. SW will ask pt about this again. GASTON called iRri Contreras at [facility] to make sure that the information in regard to getting a bank statement is indeed accurate. She states that their computer system is down so she is not able to look up this information, will call SW back when she can access her system. She states that a bank statement may not be needed however. SW spoke w/pt again, explained the bank statement may not be needed, waiting to hear back from [facility] [employer] [facility] so we know exactly what is needed to convert her insurance. SW did ask her about a bank statement, she confirms does not have any bank statements and that Delbert would need to go to the bank to get it. In order for Delbert to do this he would need to have financial POA. SW explained let's wait to see what exactly [employer] needs before working on financial POA. Pt states understanding. SW also let her know Delbert will be here soon and SW will speak w/both of them when he gets here. Pt states understanding. SW will continue to follow, waiting for [facility] to call SW back and will speak w/Delbert and pt when Delbert gets here. EVA Bustos Original Note: Pricila from [facility] here to see pt. SW introduced Pricila to pt, SW will continue to follow. EVA Bustos
[2018-08-09] MEDS: Cefadroxil 500 MG CAPSULE 1000 MG PO ×2 (11:56→21:59)
[2018-08-09] MEDS: Famotidine 20 MG Tablet PO (11:56)
[2018-08-09] MEDS: RisperiDONE 2 MG Tablet PO ×2 (11:57→22:00)
[2018-08-09] MEDS: RisperiDONE 0.5 MG Tablet PO ×2 (11:57→22:00)
[2018-08-09 12:01] LABS: Bedside Glucose 371 mg/dL (70-110)
[2018-08-09] MEDS: Acetaminophen 325 MG Tablet 650 MG PO ×2 (13:40→20:30)
--- NOTE | 2018-08-09 14:05 | CASEMGMT ---
GASTON spoke w/Delbert and pt in room. SW explained that the skilled nursing can take pt, but they would like the correct Medicaid in place or at least the process is started to get it into place. GASTON explained that SW waiting for [facility] to call back to see what exactly is needed to get the correct Medicaid in place, but in the interim SW will call bank to see if they can fax a form over for pt to sign to give Delbert permission to get pt's bank statement if needed. Pt would like Delbert to be her financial POA. Delbert also asked for the address, number and directions to the skilled nursing. GASTON called [facility], they cannot fax the form, Delbert will need to pick it up. GASTON gave Delbert all of the information in regard to the network explained that he will need to go to the bank to get the financial POA form. He will do so, SW asked him to bring in the form tomorrow and we can assist pt in completing. GASTON will continue to follow. EVA Bustos
[2018-08-09 17:16] LABS: Bedside Glucose 371 mg/dL (70-110)
[2018-08-09 22:05] LABS: Bedside Glucose 409 mg/dL (70-110)
[2018-08-10] VITALS (11 sets, daily range): BP systolic 102–152; BP diastolic 54–84; PULSE 59–102; RESP 18–20; TEMP 36.2–37; O2SAT 40–98
[2018-08-10] MEDS: Ipratropium/Albuterol Sulfate 3 ML AMPUL.NEB INHALATION ×3 (02:05→10:42)
[2018-08-10] MEDS: Heparin Injection (Vial) 5,000 UNIT/ML VIAL 5000 UNIT SC (06:36)
[2018-08-10 06:51] LABS: Bedside Glucose 129 mg/dL (70-110)
--- NOTE | 2018-08-10 08:13 | PCM.PN.INT ---
Subjective: Patient transferred out of the intensive care unit yesterday. Patient was on trach collar with cap off for the evening. Patient reports subjective improvement compared to previous. Nursing reports little to no tracheal secretions. General: Alert, Oriented x3, Cooperative, No apparent distress, - - Morbidly obese. Fair vocalization with PMV in place. HEENT: Atraumatic, PERRLA, EOMI, Normocephalic, - - No scleral icterus or injection noted. Oral: Moist Mucosa, No Gingival or Mucosal Lesions/ Ulcerations, - - Crowded posterior pharynx. Neck: Supple, No JVD, No Nodes, Trachea Midline, - - Trach is clean, dry and intact. Lungs: No wheeze, No rales, Diminished, Rhonchi - Improved with coughing, - - Symmetric expansion. Cardiovascular: Regular rate, Regular Rhythm, Normal S1, Normal S2, No murmurs, No rub noted, No Gallop Abdomen: Bowel Sounds Present, Soft, Non Tender, Non-Distended, Obese Extremities: No clubbing, No cyanosis, Edema Skin: - - No change from previous Musculoskeletal: No Tenderness to Palpation of Joints or Extremities Lymphatic: No Cervical, Supraclavicular, or Inguinal Adenopathy Neurological: Cranial nerves II-XII grossly intact, Neuro grossly intact, Motor Exam 5/5 strength throughout Psych/Mental Status: Appropriate, Flat Affect, Impulsive Vital Signs Temp Pulse Resp BP Pulse Ox 36.2 C L 69 18 102/54 L 97 08/10/18 03:35 08/10/18 07:00 08/10/18 03:35 08/10/18 03:35 08/10/18 03:35 Oxygen Flow Rate (L/min) 10 Oxygen Delivery Method Trach Collar Weight: 139.8 kg Body Mass Index (BMI) 47.5 Finger Stick Blood Glucose 150 Intake and Output for Last 24 Hours 08/08/18 08/09/18 08/10/18 23:59 23:59 23:59 Intake Total 2222.5 / 2222.5 2790.6 / 2790.6 237 / 237 Output Total 1725 / 1725 1900 / 1900 1475 / 1475 Balance 497.5 / 497.5 890.6 / 890.6 -1238 / -1238 Labs (Last 48 Hours) 08/08/18 08/08/18 08/08/18 11:37 16:21 21:27 WBC RBC Hgb Hct MCV MCH MCHC RDW RDW Differential Plt Count MPV Immature Gran % (Auto) Neut % (Auto) Lymph % (Auto) Mcpherson % (Auto) Eos % (Auto) Baso % (Auto) Absolute Neuts (auto) Absolute Lymphs (auto) Total Counted Sodium Potassium Chloride Carbon Dioxide Anion Gap BUN Creatinine Estim Creat Clear Calc Est GFR (MDRD) Af Amer Est GFR (MDRD) Non-Af BUN/Creatinine Ratio Glucose Calcium Total Bilirubin AST ALT Alkaline Phosphatase Total Protein Albumin Globulin Albumin/Globulin Ratio POC Glucose 328 H 356 H 430 H 08/09/18 08/09/18 08/09/18 04:50 04:50 08:49 WBC 6.8 RBC 3.40 L Hgb 9.2 L Hct 29.8 L MCV 87.6 MCH 27.1 MCHC 30.9 L RDW 16.8 H RDW Differential 52.8 H Plt Count 371 MPV 10.2 Immature Gran % (Auto) 0.100 Neut % (Auto) 82.6 H Lymph % (Auto) 11.5 L Mcpherson % (Auto) 5.8 Eos % (Auto) 0.0 Baso % (Auto) 0.0 Absolute Neuts (auto) 5.6 Absolute Lymphs (auto) 0.79 L Total Counted Not Reportable Sodium 139 Potassium 4.6 Chloride 100 Carbon Dioxide 33.0 H Anion Gap 6 BUN 27 H Creatinine 0.98 Estim Creat Clear Calc 59.29 Est GFR (MDRD) Af Amer 75 Est GFR (MDRD) Non-Af 62 BUN/Creatinine Ratio 27.4 H Glucose 353 H Calcium 8.9 Total Bilirubin 0.30 AST 8 L ALT 22 Alkaline Phosphatase 85 Total Protein 6.9 Albumin 2.3 L Globulin 4.6 H Albumin/Globulin Ratio 0.5 L POC Glucose 386 H 08/09/18 08/09/18 08/09/18 11:52 16:59 21:57 WBC RBC Hgb Hct MCV MCH MCHC RDW RDW Differential Plt Count MPV Immature Gran % (Auto) Neut % (Auto) Lymph % (Auto) Mcpherson % (Auto) Eos % (Auto) Baso % (Auto) Absolute Neuts (auto) Absolute Lymphs (auto) Total Counted Sodium Potassium Chloride Carbon Dioxide Anion Gap BUN Creatinine Estim Creat Clear Calc Est GFR (MDRD) Af Amer Est GFR (MDRD) Non-Af BUN/Creatinine Ratio Glucose Calcium Total Bilirubin AST ALT Alkaline Phosphatase Total Protein Albumin Globulin Albumin/Globulin Ratio POC Glucose 371 H 371 H 409 H 08/10/18 06:35 WBC RBC Hgb Hct MCV MCH MCHC RDW RDW Differential Plt Count MPV Immature Gran % (Auto) Neut % (Auto) Lymph % (Auto) Mcpherson % (Auto) Eos % (Auto) Baso % (Auto) Absolute Neuts (auto) Absolute Lymphs (auto) Total Counted Sodium Potassium Chloride Carbon Dioxide Anion Gap BUN Creatinine Estim Creat Clear Calc Est GFR (MDRD) Af Amer Est GFR (MDRD) Non-Af BUN/Creatinine Ratio Glucose Calcium Total Bilirubin AST ALT Alkaline Phosphatase Total Protein Albumin Globulin Albumin/Globulin Ratio POC Glucose 129 H Microbiology 08/06/18 23:28 Urine Catheter - Tovar Urine Culture - Final Culture exhibits no growth. 08/07/18 06:20 Sputum, Tracheal Aspirate Gram Stain - Final 08/07/18 06:20 Sputum, Tracheal Aspirate Respiratory Culture - Final Staphylococcus aureus 08/06/18 23:20 Blood Culture (Wb) - Other Blood Culture - Preliminary No growth in 48 hours. 08/06/18 22:10 Blood Culture (Wb) - Right Forearm Blood Culture - Preliminary No growth in 48 hours. Medical Necessity - Tobacco Use Smoking Status: Never smoker Assessment/Plan All Active Problems Sepsis (Acute) Pneumonia (Acute) Chest pain (Acute) PNA (pneumonia) (Acute) Acute kidney injury (Acute) RECOMMENDATIONS: 1. Continue p.o. steroids and antibiotics 2. Uncap trach every night with sleep 3. Continue bronchodilators and aggressive pulmonary toileting 4. Wean oxygen as tolerated 5. Continue insulin support and transition to q. before meals and at bedtime IMPRESSIONS: 1. Acute on chronic combined respiratory failure secondary to MSSA pneumonia Patient with extensive right-sided changes noted on chest x-ray. Patient does have some purulent sputum noted initially, but this is reportedly improving. Will continue patient to on antibiotics and prednisone. Likely complete a 10-day course of antibiotics and 5 days of prednisone. Patient did have some hypoxemia overnight requiring 1 Of trach, but patient tolerated well. Unclear if this is related to failure of pulmonary toileting versus obstructive sleep apnea. We will continue to attempt to uncap patient at night. This appears to be working well. 2. Type 2 diabetes mellitus Patient will have significantly elevated blood sugars given need for steroid therapy. We will continue to monitor blood sugars closely. Patient currently taking a p.o. diet. Patient steroids should be discontinued in another 3 days. We will have to watch blood sugars closely as patient is on significant basal insulin. 3. PTSD/depression/morbid obesity/GERD/debility Complicates care, management, recovery and prognosis. Okay to continue with baseline medications for now. Patient taking p.o. now. On baseline medications. Code Visit Inpatient E&M: 74542 [facility] L2
--- NOTE | 2018-08-10 10:06 | CASEMGMT ---
SW spoke w/Riri Contreras at [facility]. She states that there are some forms pt will need to sign, and she can look into pt's Medicaid to get it switched, will let this SW know if she is able to do so. GASTON inquired if pt has more than $2,000 in the bank--and she may since she has been in the hospital for several months--will this make her ineligible. Riri will look into it and let this SW know. GASTON did give her the dates pt was in the hospital initially, at the [facility] and at [place]. She is going to see if pt will qualify for Medicaid back to when pt was initially in the hospital to help with the copays. GASTON Khoury had pt sign all paperwork. SW spoke w/Delbert, asked if he is willing to be pt's sales representative graphic art for [facility], as pt designated him. He is willing to do so. Delbert also explained he went to the bank and two linter tender's offices, and he could not get the paperwork for pt to sign to be pt's financial POA, nobody would give the forms to him. SW put that Delbert gave verbal consent on the sales representative graphic art form and this SW faxed it back to [facility]. SW spoke w/Riri at [facility] again, should sign this form for pt if he is able, but she will put the one SW faxed on file for now. Riri to let this SW know about pt's Medicaid once she can review the information. GASTON spoke w/Delia from [facility], SW explained the pt signed the forms and they were sent to [facility], waiting to hear back. Delia is fine w/pt coming now that this process has been started. SW did let her know that pt may have over $2000 in the bank at present which may delay her qualifying for Medicaid, but does have some bills that need paid. SW also explained that pt's significant other did try to get the paperwork so he could be pt's POA for finances--went to 2 roads superintendent' offices and a bank and nobody would give him the paperwork. GASTON explained that Delbert may need assist w/this when pt gets there as pt has stated that she would like Delbert to be her financial POA. SW let physician know that pt can go to [facility] today, she is going to let this SW know if pt is ready. SW will continue to follow. EVA Bustos
--- NOTE | 2018-08-10 10:10 | CASEMGMT ---
GASTON completed forms from [employer] with patient. GASTON Ellison then took over and continues to work on getting things in order for SNF. Apoorva [employer] UNDERWRITER
[2018-08-10] MEDS: Acetaminophen 325 MG Tablet 650 MG PO (10:40)
[2018-08-10] MEDS: Cefadroxil 500 MG CAPSULE 1000 MG PO (10:41)
[2018-08-10] MEDS: predniSONE 20 MG Tablet 40 MG PO (10:41)
[2018-08-10] MEDS: Famotidine 20 MG Tablet PO (10:41)
--- NOTE | 2018-08-10 10:55 | PCM.TXEXTCAR ---
- Diet 08/09/18 09:21 Diet: Cardiac: Carb-Controlled Is pt able to select menu?: Yes Diet Comments: low sodium, distant supervision - Routine Orders/Code Status O2 Liters per Minute: 40% Fi02 via trach collar O2 Frequency: Continuous Keep PO Greater than or Equal to (%): 92 - Keep trach uncapped at night Routine Lab Work: CBC - within 3 days, BMP - within 3 days Code Status: Full Code - Wound(s) Upper Abd Wound Type: Old PEG removal site - Therapies Weight Bearing: Weight bearing as tolerated Physical Therapy: Eval and Treat Occupational Therapy: Eval and Treat Speech Therapy: Eval and Treat - Allergies/Procedures Done in Hospital Allergies/Adverse Reactions: Allergies No Known Allergies Allergy (Verified 05/23/18 14:58) Procedures: None - Type of Care/Length of Stay Estimated LOS: Convalescent Care Less Than 30 days Type of Care Needed: Skilled Rehab Potential: Good Prognosis: Good - Additional Orders/Day of Discharge Day of Discharge: 08/10/18 - Dietary and Speech Recommendations Dietitian Recommendations/Changes: Rec DONOR CENTER TECHNICIAN consult. Rec - CHO Control / low sodium diet - consistency per DONOR CENTER TECHNICIAN - Follow Up Care Primary Care Physician: Richard Elizabeth MD [STAFF PHYSICIAN] - Please follow up with your Primary Care Physician in: within 2 weeks of discharge Please Follow Up With: Camila Botello NP-C - Dr. Corbin's patient When: in 2 weeks
--- NOTE | 2018-08-10 10:59 | TREXTCAR_ITS ---
- Diet 08/09/18 09:21 Diet: Cardiac: Carb-Controlled Is pt able to select menu?: Yes Diet Comments: low sodium, distant supervision - Routine Orders/Code Status O2 Liters per Minute: 40% Fi02 via trach collar O2 Frequency: Continuous Keep PO Greater than or Equal to (%): 92 - Keep trach uncapped at night Routine Lab Work: CBC - within 3 days, BMP - within 3 days Code Status: Full Code - Wound(s) Upper Abd Wound Type: Old PEG removal site - Therapies Weight Bearing: Weight bearing as tolerated Physical Therapy: Eval and Treat Occupational Therapy: Eval and Treat Speech Therapy: Eval and Treat - Allergies/Procedures Done in Hospital Allergies/Adverse Reactions: Allergies No Known Allergies Allergy (Verified 05/23/18 14:58) Procedures: None - Type of Care/Length of Stay Estimated LOS: Convalescent Care Less Than 30 days Type of Care Needed: Skilled Rehab Potential: Good Prognosis: Good - Additional Orders/Day of Discharge Day of Discharge: 08/10/18 - Dietary and Speech Recommendations Dietitian Recommendations/Changes: Rec ELASTIC ASSEMBLER consult. Rec - CHO Control / low sodium diet - consistency per ELASTIC ASSEMBLER - Follow Up Care Primary Care Physician: Richard Elizabeth MD [STAFF PHYSICIAN] - Please follow up with your Primary Care Physician in: within 2 weeks of discharge Please Follow Up With: Camila Botello NP-C - Dr. Corbin's patient When: in 2 weeks
--- NOTE | 2018-08-10 11:00 | DS.PCM_ITS ---
Discharge Date and Diagnosis Date of Admission: 08/07/18 Date of Discharge: 08/10/18 - Primary Discharge Diagnosis Active and Suspected Problems Acute on chronic combined respiratory failure MSSA pneumonia Uncontrolled type 2 DM - Secondary Discharge Diagnosis Chronic Problems Acute respiratory failure with hypoxia (Chronic) Morbid obesity (Chronic) Histrionic personality disorder (Chronic) PTSD (post-traumatic stress disorder) (Chronic) Anxiety (Chronic) Diabetes (Chronic) Hospital Course and Treatment Imaging Results: Clinical Impression(s) from Imaging Studies Chest X-Ray 08/06/18 22:04 IMPRESSION: 1. Increasing infiltrate in the right lung with questionable pleural effusion. 2. Prominent stranding of the left lung base. 3. Removal of the hemodialysis catheter seen on the prior study. Electronically Signed: Michael Braxton DO at 22:27 EDT Tel [phone], Service support , Chest X-Ray 08/07/18 06:05 IMPRESSION: Moderate cardiomegaly. Large right effusion cannot exclude loculation. Tracheostomy tube. Electronically Signed: Nohemy Cornejo MD at 16:50 EDT Tel , Service support , Brain CT 08/07/18 09:17 IMPRESSION: Normal unenhanced CT scan of the brain. Electronically Signed: Royer Rowe, at 12:44 EDT , Service support , Chest X-Ray 08/08/18 05:05 IMPRESSION: Persistent atelectasis or infiltration in the right lower lung field, possibly with a pleural effusion. Appearance is slightly improved from previous study. Tracheostomy tube in position. Cardiomegaly. Electronically Signed: Ruben Nugent MD at 5:24 EDT , Service support , Hotel Service Supervisor Operations: [email or web address] Procedures: None Summary of Care Provided: 57-year-old with past medical history of type II DM, morbid obesity who was recently admitted for acute respiratory failure secondary to pneumonia status post intubation and tracheostomy who was admitted with progressive worsening shortness of breath, and initially admitted to the floor with sepsis secondary to pneumonia. Patient had acute respiratory distress and subsequently was transferred to the ICU. ABG showed severe hypercapnia and patient was started on mechanical ventilation. Her management was as follows: 1. Acute on chronic combined respiratory failure secondary to probable pneumonia, possible failure of pulmonary toileting, also from capping of tracheostomy, Patient was also managed on breathing treatments, IV steroids. She was discharged on 5 days of prednisone. She was recommended to have a tracheostomy uncapped at night. 2. MSSA pneumonia, urine legionella and streptococcal antigen negative, blood cultures were negative. Sputum cultures grew MSSA. Patient was initially started on vancomycin and Zosyn and transitioned to cefadroxil to complete a 10-day course 3. Type II DM, blood sugars were uncontrolled secondary to steroids, managed on Lantus 40 units twice daily 4. Hypertension, controlled 5. Anxiety/depression/PTSD 6. Morbid obesity, BMI 47.7 Subjective: On the discharge, she felt improved, complained about constipation, denies abdominal discomfort, nausea or vomiting. - Physical Exam General: Alert, Oriented x3, Cooperative, No apparent distress HEENT: Atraumatic, PERRLA, EOMI, Normocephalic Oral: Moist Mucosa Neck: Supple Lungs: Clear to auscultation, Normal air movement Cardiovascular: Regular rate, Regular Rhythm, Normal S1, Normal S2, No murmurs Abdomen: Bowel Sounds Present, Soft, Non Tender, Non-Distended, No Hepato- splenomegaly Extremities: No edema Skin: No rashes Musculoskeletal: No Tenderness to Palpation of Joints or Extremities Lymphatic: No Cervical, Supraclavicular, or Inguinal Adenopathy Neurological: Cranial nerves II-XII grossly intact, Neuro grossly intact Psych/Mental Status: Normal Affect, Appropriate Vital Signs Temp Pulse Resp BP Pulse Ox 98.6 F 69 20 H 152/84 H 95 08/10/18 09:59 08/10/18 10:42 08/10/18 10:42 08/10/18 09:59 08/10/18 10:42 Oxygen Flow Rate (L/min) 10 Oxygen Delivery Method Trach Collar Weight: 139.8 kg Body Mass Index (BMI) 47.5 Finger Stick Blood Glucose 150 Intake and Output for Last 24 Hours 08/08/18 08/09/18 08/10/18 23:59 23:59 23:59 Intake Total 2222.5 / 2222.5 2790.6 / 2790.6 237 / 237 Output Total 1725 / 1725 1900 / 1900 1475 / 1475 Balance 497.5 / 497.5 890.6 / 890.6 -1238 / -1238 Microbiology Past 72 Hours 08/06/18 23:28 Urine Culture - Final Urine Catheter - Tovar Culture exhibits no growth. 08/07/18 06:20 Gram Stain - Final Sputum, Tracheal Aspirate Respiratory Culture - Final Staphylococcus aureus 08/06/18 23:20 Blood Culture - Preliminary Blood Culture (Wb) - Other No growth in 48 hours. 08/06/18 22:10 Blood Culture - Preliminary Blood Culture (Wb) - Right Forearm No growth in 48 hours. POC Glucose 08/10/18 08/09/18 08/09/18 06:35 21:57 16:59 POC Glucose 129 H 409 H 371 H 08/09/18 11:52 POC Glucose 371 H Discharge Diet: Low fat/ Low Cholesterol, 2000 mg Sodium Diet, Carb Control Diet Discharge Activity: Return to Normal Activity Home Medications: Medications to take at Discharge Albuterol Aerosols [Ventolin Aerosols] 2.5 mg INHALATION Q2H PRN PRN vial.neb. 06/12/18 Heparin Injection (Vial) [Heparin Na] 5,000 unit SC Q8 vial 06/12/18 Menthol/Lanolin/Calamine/Znox [Calmoseptine Ointment] 1 applic TOPICAL BID tube 06/12/18 Acetaminophen [Acetaminophen Extra Strength] 1,000 mg PO Q8H PRN PRN 08/07/18 Amino Acids/Protein Hydrolys [Pre Protein 20 Liquid] 30 ml PO BID 08/07/18 Atorvastatin Calcium 40 mg PO QHS 08/07/18 Citalopram [Celexa] 20 mg PO DAILY 08/07/18 Famotidine 20 mg PO DAILY 08/07/18 Insulin Glargine [Lantus SoloStar Pen] 50 units SC BID 08/07/18 Insulin Lispro [Humalog KwikPen] See Protocol SQ ACHS 08/07/18 Metoprolol Tartrate 25 mg PO BID 08/07/18 Risperidone 2.5 mg PO BID 08/07/18 Albuterol Aerosols [Ventolin Aerosols] 2.5 mg INHALATION Q2H PRN PRN vial.neb. 08/10/18 Cefadroxil [Duricef] 1,000 mg PO BID #11 capsule 08/10/18 Insulin Glargine [Lantus SoloStar Pen] 40 units SC , pen 08/10/18 Insulin Lispro [Humalog KwikPen] See Protocol SC ACHS insuln.pen 08/10/18 Ipratropium/Albuterol Sulfate [Duoneb] 3 ml INHALATION Q4H.RT ampul.neb 08/10/18 Magnesium Hydroxide [Milk Of Magnesia] 30 ml PO DAILY PRN udc 08/10/18 predniSONE tablet 40 mg PO DAILY@0800 #5 tablet 08/10/18 Primary Care Physician: Richard Elizabeth MD [STAFF PHYSICIAN] - Please follow up with your Primary Care Physician in: within 2 weeks of discharge Please Follow Up With: Camila Botello NP-C - Dr. Corbin's patient When: in 2 weeks Disposition: Half-Way facility Minutes spent on discharge:: 45 Patient Condition:: Stable Medical Necessity - Tobacco Use Smoking Status: Never smoker Tobacco Use: Non-smoker Meaningful Use Info Meaningful Use Diagnoses (Choose all that apply): None applicable Code Visit Inpatient E&M: 19866 Disch Hosp
--- NOTE | 2018-08-10 11:39 | CASEMGMT ---
Pt ready for discharge. GASTON Guerin faxed all discharge paperwork to Delia at [facility] [place], set up 2pm ambulance w/[facility]. 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 Hospital exemption completed in [place]. GASTON called pt's friend Delbert, let him know pt is leaving here at 2pm to go to the halfway. Delbert still plans to come in to see pt, will have pt sign the Designation of inbound sales representative form and then fax it to Riri at [facility]. Apoorva let Delia at [facility] know if we could not get the form signed it would come w/pt in the packet and she can have Delbert sign it there. GASTON called Riri at [facility] and let her know pt can to go the halfway today, but should still be able to have Delbert sign the designation of inbound sales representative form today and get it over to her. Riri states she is working on getting pt's Medicaid activated now. GASTON gave Riri the number for Delia at the halfway, for her to call. No further needs anticipated, pt to [facility] at 2pm, all aware and agreeable. If Delbert gets here in time SW will have him sign the needed form and fax to [facility], otherwise the form will go w/pt to the halfway and they will have him sign it there, send to [facility]. EVA Bustos
--- NOTE | 2018-08-10 12:00 | NURSING ---
This RN taking over care at this time
[2018-08-10] MEDS: Polyethylene Glycol 3350 17 GM PACKET PO (12:18)
[2018-08-10] MEDS: RisperiDONE 2 MG Tablet PO (12:18)
[2018-08-10] MEDS: Insulin Lispro 100 UNIT/ML INSULN.PEN SC (12:19)
[2018-08-10] MEDS: RisperiDONE 0.5 MG Tablet PO (12:19)
[2018-08-10 12:30] LABS: Bedside Glucose 212 mg/dL (70-110)
--- NOTE | 2018-08-10 13:24 | NURSING ---
Called report to Catia MONTOYA at the [facility]
== END 2018-08-10 13:16 | disposition skilled nursing facility (03) | DRG 871 ==
LOC: ED 22:03 → MS3 08-07 01:37 → ICU 08-07 07:14 → PCU 08-09 18:17
PROVIDERS: Internal Medicine Critical Care Medicine; Admitting Provider Hospitalist; Emergency Provider Emergency Medicine; Family Provider Family Medicine; PCP Family Medicine; Visit Provider Internal Medicine
DX: A41.01 Sepsis due to Methicillin susceptible Staphylococcus aureus (principal); J15.211 Pneumonia due to Methicillin susceptible Staphylococcus aureus; J96.22 Acute and chronic respiratory failure with hypercapnia; J96.21 Acute and chronic respiratory failure with hypoxia; Z68.42 Body mass index [BMI] 45.0-49.9, adult; E66.01 Morbid (severe) obesity due to excess calories; E11.65 Type 2 diabetes mellitus with hyperglycemia; F43.10 Post-traumatic stress disorder, unspecified; Z93.0 Tracheostomy status; F41.9 Anxiety disorder, unspecified; F60.4 Histrionic personality disorder; T38.0X5A Adverse effect of glucocorticoids and synthetic analogues, initial encounter; K21.9 Gastro-esophageal reflux disease without esophagitis; Z79.4 Long term (current) use of insulin; I10 Essential (primary) hypertension
CPT/HCPCS: 31720; 36569; 36600; 70450; 71045; 80048; 80053; 81001; 82803; 82962; 83605; 84484; 85025; 85610; 85730; 87040; 87070; 87077; 87086; 87186; 87205; 87449; 87641; 93005; 94002; 94003; 94640; 97110; 97162; 97166; 97530; 97802; 99285; J7040; J7050; A4216